=== PATIENT | male | born 1965 | race Caucasian/White ===

== ENCOUNTER 2022-04-01 08:18 | Emergency (ER) | payer MEDICAID, SELFPAY ==
[2022-04-01 08:21] VITALS: BP 114/70; PULSE 82; RESP 18; TEMP 37.2; O2SAT 98; BMI 24.0
--- NOTE | 2022-04-01 09:41 | ED_ITS ---
HPI - Eye Problem General Chief complaint: Eye Problems Stated complaint: eye problems Time Seen by Provider: 04/01/22 09:41 History of Present Illness HPI Narrative: Patient is disabled and blind living in a intermediate He was noted to have pinkeye in his right eye and was prescribed polymyxin eyedrops, but he has been resistant to taking them so the drops have not been given consistently and now the eyelid is red and there continues to be discharge from the eye Staff reports he seems to be very comfortable and not in any pain, is otherwise eating and drinking and behaving normally for himself Related Data Previous Rx's Medication Instructions Recorded cephalexin 250 mg capsule 250 mg PO QID 7 days #28 caps 04/01/22 moxifloxacin 0.5 % eye drops 1 drp ophthalmic (eye) TID 7 days 04/01/22 (Vigamox) #3 mL Allergies Allergy/AdvReac Type Severity Reaction Status Date / Time erythromycin base Allergy Unknown HIVES Unverified 03/17/20 19:46 [ERYTHROMYCIN BASE] gentamicin [GENTAMICIN] Allergy Unknown UNKNOWN Unverified 03/17/20 19:46 Macrolide Antibiotics Allergy Unknown UNKNOWN Unverified 03/17/20 19:46 [MACROLIDE ANTIBIOTICS] KETOLIDES Allergy Unknown UNKNOWN Uncoded 03/17/20 19:46 Review of Systems Review of Systems: Positive for eyelid redness and discharge from eye Negatives are no fever no chills no dizziness no fainting no evidence of pain no other skin rash no cough no runny nose Yes all other systems are reviewed and are negative PMFSH Past Medical History Source: nursing notes reviewed Social History Social History Advance Directives: Yes Advance Directives Information Provided: No Advance Directives on File: No Physical Exam Vital Signs: Vital Signs: Last Vital Signs Temp 98.9 F 04/01/22 08:21 Pulse 82 04/01/22 08:21 Resp 18 04/01/22 08:21 BP 114/70 04/01/22 08:21 Pulse Ox 98 04/01/22 08:21 O2 Del Method 04/01/22 08:21 BMI result Body Mass Index 24.0 General appearance is comfortable in no acute distress The right eye there was red conjunctiva with scant discharge, there also was redness of the upper lid which did not appear to be warm or tender, there was no other redness The neck was supple Respiratory no distress Skin or no other rash Course Course Course Narrative: As the patient has conjunctivitis has not improved with the polymyxin drops and they require multiple applications per day I switched to Vigamox As there is redness now around the eyelid we are treating with Keflex for possible cellulitis Discharge Plan Discharge Clinical Impression: Cellulitis of right eyelid, Conjunctivitis Patient Disposition: Home, Self-Care Additional Instructions: Because the lid is now red and seems to be worsening we are treating for possible cellulitis with Keflex As polymyxin does not seem to of work for the infection we are escalating to Vigamox 3 times a day Follow with her doctor Return any time any worse condition or any concerns Prescriptions: New moxifloxacin [Vigamox] 0.5 % drops 1 drp ophthalmic (eye) TID 7 Days Qty: 3 0RF cephalexin 250 mg capsule 250 mg PO QID 7 Days Qty: 28 0RF
== END 2022-04-01 10:35 | disposition home or self-care (01) ==
PROVIDERS: Emergency Provider Emergency Medicine Emergency Medical Services; PCP Physician Assistant
DX: H00.031 Abscess of right upper eyelid (principal); H10.31 Unspecified acute conjunctivitis, right eye
CPT/HCPCS: 99282

== ENCOUNTER 2022-06-05 08:06 | Outpatient (RCR) | payer MEDICAID, SELFPAY ==
--- NOTE | ~2022-06-05 | XR_ITS ---
EXAMINATION: XR HUMERUS, RIGHT CLINICAL INFORMATION: Nonhealing wound mid lateral upper arm. COMPARISON: Chest radiographs 09/17/2019 TECHNIQUE: Frontal view right humerus is obtained along with 3 views of the elbow. There are total of 4 views. FINDINGS: The arm shows no fracture or dislocation or destructive process. No visible ankle capsular effusion. There is spurring at the coronoid process and olecranon and lateral acromium. The acromioclavicular alignment appears normal. There is healed fracture of a right lateral rib and questionable acute fracture distal right with near the lower margin of humerus film. Clinically correlate. There is a triangular density possibly calcification or ossification within the superficial soft tissues mid lateral right arm, approximately 8 x 4 mm in size and residing within 5 mm of the skin surface. There is no gas tracking in the soft tissues. XR/XR humerus RT IMPRESSION: -8 x 4 mm triangular density possibly calcification or ossification within superficial soft tissues mid lateral right arm, approximately 8 x 4 mm in size and residing within 5 mm of the skin surface. No gas tracking in soft tissues. -No fracture or dislocation right humerus. No destructive process. No elbow capsular effusion. -Question fracture distal right rib. Clinically correlate.
== END 2022-06-19 12:03 | disposition home or self-care (01) ==
LOC: HO.WCC 08:06
PROVIDERS: PCP Physician Assistant; Visit Provider Physician Assistant
DX: L98.492 Non-pressure chronic ulcer of skin of other sites with fat layer exposed (principal); L02.413 Cutaneous abscess of right upper limb; G93.40 Encephalopathy, unspecified; G40.812 Lennox-Gastaut syndrome, not intractable, without status epilepticus; Z79.899 Other long term (current) drug therapy; Z99.3 Dependence on wheelchair
CPT/HCPCS: 17250; 73060; 99212

== ENCOUNTER → 2022-07-31 13:23 | Outpatient (BNVA) | payer MEDICAID, SELFPAY | PROVIDERS: PCP Physician Assistant; Visit Provider Surgery | DX: M79.5 Residual foreign body in soft tissue (principal) | CPT/HCPCS: 99202 ==

== ENCOUNTER 2022-12-31 13:03 | Emergency (ER) | payer OTHER, SELFPAY ==
[2022-12-31 13:10] VITALS: BP 113/47; PULSE 66; PULSE 70; RESP 14; O2SAT 100; O2SAT 98; BMI 34.8
[2022-12-31 13:13] VITALS: BP 150/73; PULSE 64; RESP 14; TEMP 36.6; O2SAT 98
--- NOTE | 2022-12-31 13:40 | PC.NURSE ---
staff member from [facility] is at bedside with patient. patient vital signs stable, respirations unlabored, equal chest rise and fall. maintaining own secretions. seizure pads in place
--- NOTE | 2022-12-31 13:54 | ED.SEIZURE ---
HPI - Seizure General Chief Complaint: Seizure Stated Complaint: multiple SZ [facility] Time Seen by Provider: 12/31/22 13:37 History of Present Illness HPI Narrative: Patient is a 57-year-old male with a history of being mentally challenged baseline. Baselines has seizures activities once today at least. Baseline patient is on Depakote 500 mg 3 times a day history of being on Keppra 1000 mg 3 times a day. Patient [facility] a [facility] has been compliant with medications. The staff noted patient had 9 possible seizures today. The seizure episodes are fairly similar. Usually patient tenses up. Lasted for approximately 1-5 minutes. With afterwards patient being lethargic. Patient baseline is nonverbal. Baseline patient unable to speak. Per penitentiary staff that is with patient his mental status is approximately the same as prior. Patient normally goes to a day program during the day. Lives in a penitentiary at night. Seizure History: Yes Place: penitentiary Related Data Previous Rx's Medication Instructions Recorded cephalexin 250 mg capsule 250 mg PO QID 7 days #28 caps 04/01/22 moxifloxacin 0.5 % eye drops 1 drp ophthalmic (eye) TID 7 days 04/01/22 (Vigamox) #3 mL Allergies Allergy/AdvReac Type Severity Reaction Status Date / Time erythromycin base Allergy Unknown HIVES Unverified 03/17/20 19:46 [ERYTHROMYCIN BASE] gentamicin [GENTAMICIN] Allergy Unknown UNKNOWN Unverified 03/17/20 19:46 Macrolide Antibiotics Allergy Unknown UNKNOWN Unverified 03/17/20 19:46 [MACROLIDE ANTIBIOTICS] KETOLIDES Allergy Unknown UNKNOWN Uncoded 03/17/20 19:46 Review of Systems Review of Systems: Unable to obtain review of systems secondary to patient condition [facility] Past Medical History Attestation statement: The following information was validated with the patient. Social History Social History Advance Directives: No Advance Directives Information Provided: No Physical Exam Vital Signs: Vital Signs: Last Vital Signs Temp 97.8 F 12/31/22 13:13 Pulse 64 12/31/22 13:13 Resp 14 12/31/22 13:13 BP 150/73 H 12/31/22 13:13 Pulse Ox 98 12/31/22 13:13 O2 Del Method Room Air 12/31/22 13:13 BMI result Body Mass Index 34.8 Appearance: Contracted, grimaces to pain Eyes: Pupils equal, round and reactive to light. ENT: Pharynx normal. Neck: Normal inspection. Neck supple. No lymph nodes noted. No crepitus CVS: Normal heart rate and rhythm. Pulses normal. Normal S1 and S2 Respiratory: No respiratory distress. Breath sounds normal. No Wheezing. No rales Abdomen: Soft and nontender. No rigidity. No distention. good BS x4 Skin: Skin warm and dry. Normal skin color. Normal skin turgor. Extremities: No lower extremity edema. Neurovascular intact to all extremities. No Lacerations. No Rash Neuro: Contracted grimaces to pain Medications Administered Discontinued Medications Generic Name Dose Route Start Last Admin Trade Name Freq PRN Reason Stop Dose Admin Sodium Chloride 500 mls @ 999 mls/hr 12/31/22 14:00 12/31/22 15:07 Ns IV 12/31/22 14:30 Infused .Q31M MEETA Infusion Medical Decision Making Medical Decision Making [facility] Narrative: Patient has baseline history of seizure. Normally on this 2 medication Depakote 500 mg 3 times a day also on Keppra 1000 mg 3 times a day. The dose seems to be approximately the same. Patient had multiple seizures today up to 9. Sent to the ED for further evaluation. We will go ahead get EKG, labs, CT scan of the head. Patient's Depakote level level is therapeutic attempted to contact Neurology multiple times over the course of approximately 4 hours. Already on Depakote 500 3 times a day. On Keppra a 1000 mg 3 times a day. Patient baseline has seizures. Is taking p.o. here in the emergency department. Did not have any further seizures. Patient was monitored for over 6 hours. Will elect to discharge patient back to the [facility]itentiary. With no medication adjustments for now. In stable condition. CT scan of the head was grossly negative. Electrolytes unremarkable. Urine showed no signs of infections. In stable condition Differential Diagnosis Differential Diagnoses: The differential diagnosis associated with the presentation includes Infection, recurrent seizure, intracranial bleed Lab Data [facility] Lab Attestation statement: I reviewed the patient's lab results. 12/31/22 15:03 12/31/22 15:03 Labs: Lab Results 12/31/22 12/31/22 12/31/22 Range/Units 15:03 15:03 15:03 WBC 4.7 L (4.8-10.8) X10*3/uL RBC 4.45 L (4.60-5.80) X10*6/uL Hgb 12.8 L (14.0-18.0) g/dl Hct 38.1 L (42.0-52.0) % MCV 85.6 (80.0-98.0) fL MCH 28.8 (27.0-33.0) pg MCHC 33.6 (31.0-36.0) g/dl RDW 13.2 (11.0-16.0) % Plt Count 242 (160-400) X10*3/uL MPV 9.1 L (9.4-12.4) fL Immature Gran % (Auto) 0.4 (0.0-0.4) % Neut % (Auto) 46.5 (45-73) % Lymph % (Auto) 38.4 (20-40) % [place] % (Auto) 11.7 H (2-11) % Eos % (Auto) 2.6 (0-4) % Baso % (Auto) 0.4 (0-2) % Lymph # (Auto) 1.8 (1.2-4.9) X10*3/uL [place] # (Auto) 0.6 (0.1-1.2) X10*3/uL Eos # (Auto) 0.1 (0.0-0.4) X10*3/uL Baso # (Auto) 0.0 (0.0-0.2) X10*3/uL Abs Immat Gran (auto) 0.02 (0.00-0.03) X10*3/uL Absolute Neuts (auto) 2.2 (2.0-8.3) x10*3/uL Absolute Nucleated RBC 0.000 (0.0-0.012) X10*3/uL Nucleated RBC % (auto) 0.0 (0.0-0.2) /100WBC Sodium 135 (135-145) mmol/L Potassium 3.8 (3.3-5.1) mmol/L Chloride 98 (96-108) mmol/L Carbon Dioxide 27 (22-29) mmol/L Anion Gap 14 (12-20) BUN 10 (9-16) mg/dL Creatinine 0.54 (0.5-1.4) mg/dL Estim Creat Clear Calc 148.8 Estimated GFR > 60 Random Glucose 76 (60-115) mg/dL Calcium 9.2 (8.4-10.2) mg/dL Total Bilirubin 0.2 (0.0-1.0) mg/dL Direct Bilirubin < 0.2 (0.0-0.5) mg/dL AST 19 (5-37) U/L ALT 14 (0-40) U/L Alkaline Phosphatase 42 (39-117) U/L Total Protein 6.7 (6.5-8.0) g/dL Albumin 3.7 (3.5-5.0) g/dL Urine Color Urine Appearance Urine pH (5.0-9.0) Ur Specific [place] (1.005-1.025) Urine Protein (Neg-Trace) mg/dL Urine Glucose (UA) (Negative) mg/dL Urine Ketones (Negative) mg/dL Urine Blood (Negative) Urine Nitrite (Negative) Ur Leukocyte Esterase (Negative) Urine RBC (0-2) /HPF Urine WBC (0-5) /HPF Ur Squamous Epith Cells (0-2) /HPF Urine Bacteria (None Seen) Hyaline Casts (0-2) /LPF Valproic Acid 84.5 (50.0-100.0) mcg/mL 12/31/22 Range/Units 17:04 WBC (4.8-10.8) X10*3/uL RBC (4.60-5.80) X10*6/uL Hgb (14.0-18.0) g/dl Hct (42.0-52.0) % MCV (80.0-98.0) fL MCH (27.0-33.0) pg MCHC (31.0-36.0) g/dl RDW (11.0-16.0) % Plt Count (160-400) X10*3/uL MPV (9.4-12.4) fL Immature Gran % (Auto) (0.0-0.4) % Neut % (Auto) (45-73) % Lymph % (Auto) (20-40) % [place] % (Auto) (2-11) % Eos % (Auto) (0-4) % Baso % (Auto) (0-2) % Lymph # (Auto) (1.2-4.9) X10*3/uL [place] # (Auto) (0.1-1.2) X10*3/uL Eos # (Auto) (0.0-0.4) X10*3/uL Baso # (Auto) (0.0-0.2) X10*3/uL Abs Immat Gran (auto) (0.00-0.03) X10*3/uL Absolute Neuts (auto) (2.0-8.3) x10*3/uL Absolute Nucleated RBC (0.0-0.012) X10*3/uL Nucleated RBC % (auto) (0.0-0.2) /100WBC Sodium (135-145) mmol/L Potassium (3.3-5.1) mmol/L Chloride (96-108) mmol/L Carbon Dioxide (22-29) mmol/L Anion Gap (12-20) BUN (9-16) mg/dL Creatinine (0.5-1.4) mg/dL Estim Creat Clear Calc Estimated GFR Random Glucose (60-115) mg/dL Calcium (8.4-10.2) mg/dL Total Bilirubin (0.0-1.0) mg/dL Direct Bilirubin (0.0-0.5) mg/dL AST (5-37) U/L ALT (0-40) U/L Alkaline Phosphatase (39-117) U/L Total Protein (6.5-8.0) g/dL Albumin (3.5-5.0) g/dL Urine Color Yellow Urine Appearance Clear Urine pH 7.0 (5.0-9.0) Ur Specific [place] 1.015 (1.005-1.025) Urine Protein Negative (Neg-Trace) mg/dL Urine Glucose (UA) Negative (Negative) mg/dL Urine Ketones Negative (Negative) mg/dL Urine Blood Negative (Negative) Urine Nitrite Negative (Negative) Ur Leukocyte Esterase Negative (Negative) Urine RBC 3-5 H (0-2) /HPF Urine WBC 0-5 (0-5) /HPF Ur Squamous Epith Cells 0-2 (0-2) /HPF Urine Bacteria None Seen (None Seen) Hyaline Casts 0-2 (0-2) /LPF Valproic Acid (50.0-100.0) mcg/mL Discharge Plan Discharge Clinical Impression: Epileptic seizure Patient Disposition: Home, Self-Care Prescriptions: No Action moxifloxacin [Vigamox] 0.5 % drops 1 drp ophthalmic (eye) TID 7 Days Qty: 3 0RF cephalexin 250 mg capsule 250 mg PO QID 7 Days Qty: 28 0RF Referrals: Molly Tinoco MD [Physician] - 01/03/23
--- NOTE | 2022-12-31 15:59 | PC.NURSE ---
patients brief was wet, changed patient brief, linens and josé antonio pad, repositioned patient in bed. [facility] staff at the bedside.
--- NOTE | 2022-12-31 19:06 | PC.NURSE ---
Assumed care of pt. Pt lying on stretcher, appears sleeping. Rousable to light touch. clerical production worker at bedside, Nilsa, indicated pt has mahsa sleeping with no distress for several hours. Pt with no critical medical or behavioral concerns at this time. Pending plan of care. WCTM.
[2023-01-01] VITALS: BP 109/46; PULSE 61; RESP 16; TEMP 36.2; O2SAT 96
--- NOTE | 2023-01-01 00:03 | MHC.EDTECH ---
THIS PCT ASSUMED CARE OF PATIENT AT [id number] ,VITALS SIGN TAKEN ,PT IS DISCHARGED AND IS WAITING FOR AMBULANCE TO GO HOME ,[facility] STAFF AT BEDSIDE .
== END 2023-01-01 00:25 | disposition home or self-care (01) ==
PROVIDERS: Emergency Provider Emergency Medicine Emergency Medical Services; PCP Physician Assistant
DX: G40.909 Epilepsy, unspecified, not intractable, without status epilepticus (principal); Z79.899 Other long term (current) drug therapy
CPT/HCPCS: 36415; 70450; 71045; 80048; 80076; 80164; 80177; 81001; 85025; 93005; 96360; 99284; 99285

== ENCOUNTER 2023-04-01 09:50 | Observation (INO) | payer OTHER, SELFPAY ==
--- NOTE | ~2023-04-01 | XR_ITS ---
EXAMINATION: XR CHEST CLINICAL INFORMATION: Seizure COMPARISON: Previous chest x-ray most recent December 2022 TECHNIQUE: Frontal view of the chest was obtained. FINDINGS: Exam is limited due to patient positioning with the patient's chin overlying the upper central chest. The cardiac and mediastinal contours are stable. The lungs are clear. No pleural effusion or pneumothorax. Degenerative changes of the spine. XR/XR chest 1V IMPRESSION: Limited exam. No evidence for acute disease in the chest.
--- NOTE | ~2023-04-01 | CT_ITS ---
EXAMINATION: CT HEAD WITHOUT CONTRAST CLINICAL INFORMATION: Multiple seizures. COMPARISON: Head CT dated 12/31/2022. TECHNIQUE: Contiguous axial imaging was performed from the skullbase to vertex without intravenous administration of contrast. Extremely limited examination due to patient motion. Patient reportedly combative during the study. This CT examination was performed using dose optimization techniques as appropriate, variously including the following: *Automated exposure control *Adjustment of mA and/or kV according to patient size (this includes techniques or standardized protocols for targeted exams where dose is matched to indication/reason for exam; i.e. extremities or head) *Use of iterative reconstruction technique DLP: 1725 mGy-cm. FINDINGS: Generalized brain parenchymal volume loss again evident with ex vacuo dilatation of the ventricles. There is no evidence of acute intracranial hemorrhage or territorial infarction. No abnormal mass effect or midline shift is seen. No obvious extra-axial fluid collections are identified. The osseous structures and soft tissues are normal. The mastoid air cells are well aerated. There are retention cysts and mild mucosal thickening in the maxillary sinuses. 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 CT/CT head/brain wo IV con IMPRESSION: Significantly limited study with patient motion artifacts. No acute intracranial hemorrhage or territorial infarction evident. Stable generalized brain parenchymal volume loss and ex vacuo dilatation of the ventricles.
[2023-04-01 10:01] VITALS: BP 114/73; BP 125/77; PULSE 105; PULSE 106; RESP 20; TEMP 37.2; O2SAT 91; O2SAT 95; BMI 26.3
--- NOTE | 2023-04-01 10:22 | ED_ITS ---
HPI - Seizure General Chief Complaint: Seizure Stated Complaint: SZ PER EMS Time Seen by Provider: 04/01/23 10:07 Source: EMS, RN notes reviewed, old records reviewed and other Mode of arrival: EMS History of Present Illness HPI Narrative: 57-year-old male with a past medical history of HLD, TIA, anxiety, Parkinson's, aspiration pneumonia, anxiety/depression, proptosis, legally blind, cluster seizures currently on Keppra 1000mg TID and Depakote 500mg TID with Ativan PRN, nonverbal and bed-bound at baseline, presenting [facility] via [facility] for cluster seizures this morning beginning around 07:00AM. jail reports multiple [id number] seizures, typical for patient, no fall/head trauma during any incident. Typically last a few minutes. Admits episodes were typical for patient. Patient was given 1mg Ativan x3, last dose SCREW MACHINE HAND. Patient with history of COVID-19 a few weeks ago, otherwise in normal state of health. Denies known fever, cough, decreased p.o. intake. jail reports compliance with medications MD complaint: seizure Seizure History: Yes Place: Home Related Data Home Medications Medication Instructions Recorded Confirmed acetaminophen 325 mg tablet 650 mg PO Q6H PRN Fever Or Pain 04/01/23 04/01/23 aspirin 81 mg tablet,delayed 81 mg PO DAILY 04/01/23 04/01/23 release bacitracin 500 unit/gram eye 1 appl ophthalmic (eye) BID 04/01/23 04/01/23 ointment cholecalciferol (vitamin D3) 1,250 1,250 mcg PO QWEEK 04/01/23 04/01/23 mcg (50,000 unit) capsule clonazepam 0.5 mg tablet 0.25 mg PO BID@0900,1200 04/01/23 04/01/23 clonazepam 0.5 mg tablet 0.5 mg PO BEDTIME 04/01/23 04/01/23 divalproex 125 mg capsule,delayed 500 mg PO TID 04/01/23 04/01/23 release sprinkle (Depakote Sprinkles) docusate sodium 100 mg capsule 100 mg PO BID 04/01/23 04/01/23 felbamate 400 mg tablet 800 mg PO TID 04/01/23 04/01/23 levetiracetam 500 mg tablet 1,000 mg PO TID 04/01/23 04/01/23 levothyroxine 88 mcg tablet 88 mcg PO DAILY 04/01/23 04/01/23 lorazepam 1 mg tablet 1 mg PO Q30M PRN Seizures 04/01/23 04/01/23 multivitamin with folic acid 400 1 tab PO DAILY 04/01/23 04/01/23 mcg tablet (Thera) sertraline 50 mg tablet 50 mg PO DAILY 04/01/23 04/01/23 simvastatin 40 mg tablet 40 mg PO BEDTIME 04/01/23 04/01/23 zinc oxide 13 % topical cream 1 appl topical TID 04/01/23 04/01/23 (Desitin Daily Defense) Allergies Allergy/AdvReac Type Severity Reaction Status Date / Time erythromycin base Allergy Unknown HIVES Verified 04/01/23 11:20 [ERYTHROMYCIN BASE] gentamicin [GENTAMICIN] Allergy Unknown UNKNOWN Verified 04/01/23 11:20 Macrolide Antibiotics Allergy Unknown UNKNOWN Verified 04/01/23 11:20 [MACROLIDE ANTIBIOTICS] KETOLIDES Allergy Unknown UNKNOWN Uncoded 03/17/20 19:46 Review of Systems 2 Review of Systems: ROS limited due to patient's baseline nonverbal status and acute postictal phase Yes all other systems are reviewed and are negative Constitutional: Constitutional: Reports as per [facility] Past Medical History Attestation statement: The following information was validated with the patient. Source: old records reviewed Medical History (Updated 04/01/23 @ 13:28 by CADEN Jacobs) Depression Generalized anxiety disorder Ganglion cyst Aspiration pneumonia Parkinson disease Dysphagia Anxiety Constipation TIA (transient ischemic attack) Hyperlipidemia Glaucoma Hyperopia of left eye Proptosis Aphakia, both eyes Osteopenia Hypothyroidism Manjinder-Gastaut syndrome, intractable, with status epilepticus Social History Social History Unable to assess alcohol history related to: Unknown Smoked in Last 30 Days: No Use of substances other than those prescribed or required for medical reasons: Unknown Advance Directives: No Advance Directives Information Provided: Yes Physical Exam 2 Vital Signs: Vital Signs: Last Vital Signs Temp 98.9 F 04/01/23 10:01 Pulse 84 04/01/23 12:25 Resp 18 04/01/23 12:25 BP 116/51 L 04/01/23 12:25 Pulse Ox 97 04/01/23 12:25 O2 Del Method Room Air 04/01/23 12:25 BMI result Body Mass Index 26.3 Const: Other: Contracted at baseline General: cooperative and no acute distress Limitations: other limitations (Nonverbal) HEENT: Head: Yes normal to inspection and Yes atraumatic Ears: hearing grossly normal bilaterally General nose exam: Normal external nose present Face and sinus: Yes normal facial exam Eyes: General: appearance normal, both eyes and all related structures EOM: EOMs intact bilaterally Neck: Neck: Yes normal visual inspection and Yes no meningeal signs Resp: Effort & Inspection: normal respiratory effort and no respiratory distress Auscultation: clear to auscultation bilaterally Cardio: Rate: regular rate Heart sounds: S1 normal heart sound present and S2 normal heart sound present GI: Inspection: Yes normal to inspection Palpation (GI): Soft to palpation, nontender, no guarding and not rigid Skin: Rashes: no rashes Wounds: no wounds Neuro: General: tone normal and no meningeal signs Extrem: Other: No evidence of trauma General: Yes normal to inspection Course Course Course Narrative: -1141--no leukocytosis. H&H at patient's baseline. Labs otherwise reassuring. COVID-19 negative XR chest 1V IMPRESSION: Limited exam. No evidence for acute disease in the chest. -UA negative CT head/brain wo IV con IMPRESSION: Significantly limited study with patient motion artifacts. No acute intracranial hemorrhage or territorial infarction evident. Stable generalized brain parenchymal volume loss and ex vacuo dilatation of the ventricles. > 1251--[facility] staff called this senior medical writer to room as noted patient to have 6 sec seizure in the ED. Currently in postictal/snoring state. Follows with Dr. Tito Shafer at [facility], will consult -1324--spoke with Dr. Shafer, patient's neurologist, patient is also on Felbamate for his seizures > recommended Ativan 1 mg IV now and q.6 hours x3 total doses. Additionally recommended adding Lamictal to patient's regimen, 12.5 mg daily. Would like patient admitted, if seizure free throughout the morning can be discharged back to [facility] and he will follow up. -Plan is for admission. Case discussed with hospitalist Medications Administered Discontinued Medications Generic Name Dose Route Start Last Admin Trade Name Freq PRN Reason Stop Dose Admin Sodium Chloride 1,000 mls @ 999 mls/hr 04/01/23 10:30 04/01/23 12:31 Ns IV 04/01/23 11:30 Infused .Q1H1M MEETA Infusion Lamotrigine 12.5 mg 04/01/23 13:19 04/01/23 13:50 Lamotrigine 25 Mg Tablet PO 04/01/23 13:20 12.5 mg ONCE ONE Administration Lorazepam 1 mg 04/01/23 13:15 04/01/23 13:41 Lorazepam 2 Mg/Ml Vial IVPUSH 04/01/23 13:16 1 mg STAT STA Administration Medical Decision Making Medical Decision Making MDM Narrative: 57-year-old male with a past medical history of HLD, TIA, anxiety, Parkinson's, aspiration pneumonia, anxiety/depression, proptosis, legally blind, cluster seizures currently on Keppra 1000mg TID and Depakote 500mg TID with Ativan PRN, nonverbal and bed-bound at baseline, presenting to the ED via EMS from [facility] for cluster seizures this morning beginning around 07:00AM. On exam vital signs stable, NAD, nontoxic, no evidence of trauma, patient is sleeping/snoring during the eval, postictal/sedated from medications, grimaces to pain. Patient with extensive history of similar presentations. Rule out metabolic/infectious etiologies and intracranial pathology. Low suspicion for medication noncompliance as medications are administered by [facility]. jail denies any recent medication changes. Plan: EKG, labs, UA, CXR, head CT, observe and re-evaluate Please refer to course for remaining clinical decision making, interpretation of labs/imaging results, and discussions with consultants and/or family members. Differential Diagnosis Differential Diagnoses: The differential diagnosis associated with the presentation includes As above Admission/Observation Consideration of admission/observation: Escalation of care including admission/observation considered Consult Healthcare Provider Management of the patient was discussed with: Joinery Factory Worker (Neurology, Dr. Shafer) Lab Data [facility] Lab Attestation statement: I reviewed the patient's lab results. 04/01/23 11:11 04/01/23 11:11 Labs: Lab Results 04/01/23 04/01/23 04/01/23 Range/Units 11:11 11:57 13:02 WBC 5.8 (4.8-10.8) X10*3/uL RBC 4.43 L (4.60-5.80) X10*6/uL Hgb 12.7 L (14.0-18.0) g/dl Hct 37.2 L (42.0-52.0) % MCV 84.0 (80.0-98.0) fL MCH 28.7 (27.0-33.0) pg MCHC 34.1 (31.0-36.0) g/dl RDW 13.5 (11.0-16.0) % Plt Count 217 (160-400) X10*3/uL MPV 9.2 L (9.4-12.4) fL Immature Gran % (Auto) 0.2 (0.0-0.4) % Neut % (Auto) 66.6 (45-73) % Lymph % (Auto) 18.8 L (20-40) % [place] % (Auto) 13.9 H (2-11) % Eos % (Auto) 0.3 (0-4) % Baso % (Auto) 0.2 (0-2) % Lymph # (Auto) 1.1 L (1.2-4.9) X10*3/uL [place] # (Auto) 0.8 (0.1-1.2) X10*3/uL Eos # (Auto) 0.0 (0.0-0.4) X10*3/uL Baso # (Auto) 0.0 (0.0-0.2) X10*3/uL Abs Immat Gran (auto) 0.01 (0.00-0.03) X10*3/uL Absolute Neuts (auto) 3.8 (2.0-8.3) x10*3/uL Absolute Nucleated RBC 0.000 (0.0-0.012) X10*3/uL Nucleated RBC % (auto) 0.0 (0.0-0.2) /100WBC PT 12.8 (11.1-13.3) SEC INR 1.1 (0.9-1.1) Sodium 133 L (135-145) mmol/L Potassium 3.8 (3.3-5.1) mmol/L Chloride 98 (96-108) mmol/L Carbon Dioxide 28 (22-29) mmol/L Anion Gap 11 L (12-20) BUN 10 (9-16) mg/dL Creatinine 0.57 (0.5-1.4) mg/dL Estim Creat Clear Calc 156.9 Estimated GFR > 60 Random Glucose 108 (60-115) mg/dL Calcium 9.2 (8.4-10.2) mg/dL Magnesium 1.8 (1.6-2.6) mg/dL Total Bilirubin 0.1 (0.0-1.0) mg/dL Direct Bilirubin < 0.2 (0.0-0.5) mg/dL AST 16 (5-37) U/L ALT 11 (0-40) U/L Alkaline Phosphatase 45 (39-117) U/L Total Protein 6.6 (6.5-8.0) g/dL Albumin 3.8 (3.5-5.0) g/dL Urine Color Yellow Urine Appearance Clear Urine pH 8.0 (5.0-9.0) Ur Specific [place] 1.020 (1.005-1.025) Urine Protein Negative (Neg-Trace) mg/dL Urine Glucose (UA) Negative (Negative) mg/dL Urine Ketones Negative (Negative) mg/dL Urine Blood Negative (Negative) Urine Nitrite Negative (Negative) Ur Leukocyte Esterase Negative (Negative) Valproic Acid 82.7 (50.0-100.0) mcg/mL COVID-19 (NICANOR) Negative (Negative) COVID-19 Clin Com See Note Independent Interpretation I performed an independent interpretation of an: EKG Radiology Impression Discussion of test interpretation with radiology: I have reviewed the radiologist's reading. Independent Historian Clinical information obtained from an independent historian. History obtained from or confirmed by: EMS and Other (jail staff) External Record Review External record reviewed: Inpatient record, Office record, Outpatient record, Prior outpatient labs, Prior outpatient radiology, Primary care record and Outside ED record Tests considered The following testing was considered but not selected: As above Chronic Conditions Patient?s care impacted by: Other (seizures ) Critical Care Time Critical Care Time Critical Care Time: Yes Total Critical Care Time: 45 Attestation: I have personally provided critical care time exclusive of time spent on separately billable procedures. Time includes review of lab data, radiology results, discussion with consultants, and monitoring for potential decompensation. Intervention performed as documented. Discharge Plan Discharge Clinical Impression: Epileptic seizure Patient Disposition: Admitted As Inpatient
--- NOTE | 2023-04-01 10:24 | ECG_ITS ---
Test Reason : SEIZURE Blood Pressure : / mmHG Vent. Rate : 095 BPM Atrial Rate : 095 BPM P-R Int : 176 ms QRS Dur : 086 ms QT Int : 320 ms P-R-T Axes : 050 027 035 degrees QTc Int : 402 ms Normal sinus rhythm Nonspecific T wave abnormality Abnormal ECG When compared with ECG of 31-DEC-2022 15:16, Nonspecific T wave abnormality now evident in Anterior leads Referred By: Winifred Conn Electronically Signed By:KOBE SAAVEDRA
--- NOTE | 2023-04-01 10:27 | PC.NURSE ---
Temp trending up, blankets removed, temp 99.3
[2023-04-01] MEDS: 0.9 % Sodium Chloride 1,000 ML 999 ML IV (11:06)
[2023-04-01 11:16] LABS: MANUAL DIFF FLAG NO
--- NOTE | 2023-04-01 11:21 | PC.NURSE ---
assumed care of pt at 1100, pt returned from CT, resting quietly, seizure precautions in place, 1L NS running, tech at bedside obtaining labs. flying squad worker at bedside.
[2023-04-01 11:22] LABS: Basophils Percent Auto 0.2 % (0-2); Eosinophils Percent Auto 0.3 % (0-4); Hematocrit 37.2 % (42.0-52.0); Hemoglobin 12.7 g/dl (14.0-18.0); INTERNATIONAL NORM RATIO 1.1 (0.9-1.1); Imm Gran Abs Auto 0.01 X10*3/uL (0.00-0.03); Imm Gran Pct Auto 0.2 % (0.0-0.4); Lymphocytes Absolute Auto 1.1 X10*3/uL (1.2-4.9); Lymphocytes Percent Auto 18.8 % (20-40); Mean Corpuscular HGB Conc 34.1 g/dl (31.0-36.0); Mean Corpuscular Hemoglobin 28.7 pg (27.0-33.0); Mean Platelet Volume 9.2 fL (9.4-12.4); Monocytes Absolute Auto 0.8 X10*3/uL (0.1-1.2); Monocytes Percent Auto 13.9 % (2-11); Neutrophils Absolute Auto 3.8 x10*3/uL (2.0-8.3); Neutrophils Percent Auto 66.6 % (45-73); Platelet Count 217 X10*3/uL (160-400); Prothrombin Time 12.8 SEC (11.1-13.3); Red Blood Count 4.43 X10*6/uL (4.60-5.80); Red Cell Distribution Width 13.5 % (11.0-16.0); White Blood Count 5.8 X10*3/uL (4.8-10.8)
[2023-04-01 11:29] LABS: COVID-19 Test Negative (Negative); IDNOW Serial# BCCEAD1C
[2023-04-01 11:37] LABS: Alanine Aminotransferase 11 U/L (0-40); Albumin Level 3.8 g/dL (3.5-5.0); Alkaline Phosphatase 45 U/L (39-117); Anion Gap 11 (12-20); Aspartate Amino Transferase 16 U/L (5-37); Bilirubin Direct < 0.2 mg/dL (0.0-0.5); Bilirubin Total 0.1 mg/dL (0.0-1.0); Blood Urea Nitrogen 10 mg/dL (9-16); Calcium 9.2 mg/dL (8.4-10.2); Carbon Dioxide 28 mmol/L (22-29); Chloride 98 mmol/L (96-108); Creatinine Clr Calc Pharmacy 156.9; Estimated Glomerular Filt Rate > 60; Glucose Random 108 mg/dL (60-115); Magnesium 1.8 mg/dL (1.6-2.6); Potassium 3.8 mmol/L (3.3-5.1); Sodium 133 mmol/L (135-145); Total Protein 6.6 g/dL (6.5-8.0)
--- NOTE | 2023-04-01 11:56 | PC.NURSE ---
pt straight cath'd, urine sample obtained, cleaned and repositioned, warm blanket given. care worker at bedside, seizure precautions in place.
[2023-04-01 12:06] LABS: Appearance Urine Clear; Color Urine Yellow; Glucose Urine UA Negative (Negative); Leukocyte Esterase Urine Negative (Negative); Nitrite Urine Negative (Negative); Urine Blood Negative (Negative); Urine Ketones Negative (Negative); Urine Protein Negative (Neg-Trace)
[2023-04-01 12:25] VITALS: BP 116/51; PULSE 84; RESP 18; O2SAT 97
[2023-04-01] MEDS: LORazepam 2 MG/ML VIAL 1 MG IVPUSH ×2 (13:41→18:33)
[2023-04-01 13:46] LABS: Valproate 82.7 mcg/mL (50.0-100.0)
[2023-04-01] MEDS: lamoTRIgine 25 MG TABLET 12.5 MG PO (13:50)
--- NOTE | 2023-04-01 13:55 | PC.NURSE ---
pt medicated per AUG. pt having occ small twitching motion that staff describes as typical for his seizure activity. per retirement staff: pt takes medications whole in something sweet - took medication well w chocolate ice cream. self feeds at base line with spoon and pureed diet and 3 oz of thin liquids at a time. doesn't like orange juice. requests bob villanueva by name of Merlene for self soothing. can answer simple yes/no questions.
--- NOTE | 2023-04-01 14:08 | P.HPHOSP_ITS ---
History of Present Illness Date of Service: 04/01/23 Attending physician on admission: Nolan Flores Chief Complaint: Cluster seizures Pt is a 57-year-old male with a PMH significant for?Parkinson's, TIA, HLD,hx of aspiration pneumonia, anxiety/depression and cluster seizures currently on Keppra 100 mg t.i.d. and Depakote 500 mg t.i.d. with Ativan p.r.n. who presents to the ED from shelter for cluster seizures this morning starting around 07:00. Patient is legally blind, bedbound at baseline, and verbally limited, though can make some of his needs known and can speak with simple words and short phrases. HPI obtained from chart and provider review, and shelter staff at [facility]. Per shelter staff patient has regular, though intermittent, seizures. Reports some weeks he may have many, though other weeks he may have none. Per protocol, patient receives 1 mg Ativan p.o. q 30 minutes for breakthrough seizures, and will be sent to the ED for evaluation after 3 doses of Ativan. Patient began having seizures this morning at 07:00 and received his total 3 doses of Ativan before calling EMS. Staff estimate patient had around 60 seizures this morning, each lasting between 5 and 15 seconds. Patient additionally had up to 4 seizures since being in the ED. staff report patient has seizures this morning were typical of the type he normally has, they just could not stop them with Ativan. Staff note patient recently got over COVID 2-3 weeks ago. Also report he has been not eating as much as normally. Patient is on a pureed diet with thin liquids. ED consulted the patient's neurologist Dr. Tito Shafer at [facility], who recommended giving Ativan 1 mg IV now and then q.6 hours for a total of 3 doses. Also recommended adding Lamictal 12.5 mg daily to patient's medications. Suggested admitting the patient, and if seizure-free throughout tomorrow morning patient can be discharged back to shelter and he will follow-up with him outpatient. In the ED patient was afebrile but tachycardic up to 106, BP a little soft at 116/51. Labs were largely unremarkable, stable H&H of 12.7/37.2, sodium 133. Hepatic and renal function WNL. Magnesium WNL. Valproic acid therapeutic at 82.7. Keppra level pending. UA negative for UTI. CXR a limited exam but showed no evidence for acute disease in the chest. CT?of head significantly limited with patient motion artifact, but did not find any acute intracranial hemorrhage or territorial infarction. Did show stable generalized brain parenchymal vomiting loss and ex vacuo dilation of the ventricles. EKG demonstrated normal sinus rhythm with nonspecific T-wave abnormality with T-wave inversions in V1 and V2, but no evidence of ST elevations or depressions. Pt was treated with IVF, Ativan 1 mg IV, lamotrigine 12.5 mg p.o. Pt will be admitted to the hospital under observation on telemetry for treatment and further evaluation of breakthrough cluster seizures. Review of Systems 2 Review of Systems: Unable to obtain d/t pt's mentation [facility] Medical History (Updated 04/01/23 @ 15:13 by CADEN Walter) Depression Generalized anxiety disorder Ganglion cyst Aspiration pneumonia Parkinson disease Dysphagia Anxiety Constipation TIA (transient ischemic attack) Hyperlipidemia Glaucoma Hyperopia of left eye Proptosis Aphakia, both eyes Osteopenia Hypothyroidism Manjinder-Gastaut syndrome, intractable, with status epilepticus Social History Unable to assess alcohol history related to: Unknown Smoked in Last 30 Days: No Use of substances other than those prescribed or required for medical reasons: Unknown Advance Directives: No Advance Directives Information Provided: Yes Meds Allergies Allergy/AdvReac Type Severity Reaction Status Date / Time erythromycin base Allergy Unknown HIVES Verified 04/01/23 11:20 [ERYTHROMYCIN BASE] gentamicin [GENTAMICIN] Allergy Unknown UNKNOWN Verified 04/01/23 11:20 Macrolide Antibiotics Allergy Unknown UNKNOWN Verified 04/01/23 11:20 [MACROLIDE ANTIBIOTICS] KETOLIDES Allergy Unknown UNKNOWN Uncoded 03/17/20 19:46 Active Medications: Current Medications Lorazepam (Lorazepam 2 Mg/Ml Vial) 1 mg IVPUSH Q6H [facility] Home Medications Medication Instructions Recorded Confirmed Last Taken Type acetaminophen 325 mg tablet 650 mg PO Q6H PRN Fever Or Pain 04/01/23 04/01/23 Unknown History aspirin 81 mg tablet,delayed 81 mg PO DAILY 04/01/23 04/01/23 Unknown History release bacitracin 500 unit/gram eye 1 appl ophthalmic (eye) BID 04/01/23 04/01/23 Unknown History ointment cholecalciferol (vitamin D3) 1,250 1,250 mcg PO QWEEK 04/01/23 04/01/23 Unknown History mcg (50,000 unit) capsule clonazepam 0.5 mg tablet 0.25 mg PO BID@0900,1200 04/01/23 04/01/23 Unknown History clonazepam 0.5 mg tablet 0.5 mg PO BEDTIME 04/01/23 04/01/23 Unknown History divalproex 125 mg capsule,delayed 500 mg PO TID 04/01/23 04/01/23 Unknown History release sprinkle (Depakote Sprinkles) docusate sodium 100 mg capsule 100 mg PO BID 04/01/23 04/01/23 Unknown History felbamate 400 mg tablet 800 mg PO TID 04/01/23 04/01/23 Unknown History levetiracetam 500 mg tablet 1,000 mg PO TID 04/01/23 04/01/23 Unknown History levothyroxine 88 mcg tablet 88 mcg PO DAILY 04/01/23 04/01/23 Unknown History lorazepam 1 mg tablet 1 mg PO Q30M PRN Seizures 04/01/23 04/01/23 Unknown History multivitamin with folic acid 400 1 tab PO DAILY 04/01/23 04/01/23 Unknown History mcg tablet (Thera) sertraline 50 mg tablet 50 mg PO DAILY 04/01/23 04/01/23 Unknown History simvastatin 40 mg tablet 40 mg PO BEDTIME 04/01/23 04/01/23 Unknown History zinc oxide 13 % topical cream 1 appl topical TID 04/01/23 04/01/23 Unknown History (Desitin Daily Defense) Physical Exam 2 Vital Signs and Narrative: Vital Signs: Last Vital Signs Temp 98.9 F 04/01/23 10:01 Pulse 84 04/01/23 12:25 Resp 18 04/01/23 12:25 BP 116/51 L 04/01/23 12:25 Pulse Ox 97 04/01/23 12:25 O2 Del Method Room Air 04/01/23 12:25 BMI result Body Mass Index 26.3 General: Pt obtunded, sleeping peacefully, no acute distress Head: Normocephalic, atraumatic Resp: CTA bilaterally CVS: S1, S2, RRR GI: +BS, NT, no distention Skin: Warm, dry Neuro: Unable to assess cranial nerves II-XII. Motor grossly intact bilaterally Extremities: No edema Results Labs 04/01/23 11:11 04/01/23 11:11 Labs: Laboratory Results - last 24 hr 04/01/23 04/01/23 04/01/23 11:11 11:57 13:02 MCV 84.0 MCH 28.7 MCHC 34.1 RDW 13.5 Plt Count 217 MPV 9.2 L Immature Gran % (Auto) 0.2 Neut % (Auto) 66.6 Lymph % (Auto) 18.8 L [place] % (Auto) 13.9 H Eos % (Auto) 0.3 Baso % (Auto) 0.2 Lymph # (Auto) 1.1 L [place] # (Auto) 0.8 Eos # (Auto) 0.0 Baso # (Auto) 0.0 Abs Immat Gran (auto) 0.01 Absolute Neuts (auto) 3.8 Absolute Nucleated RBC 0.000 Nucleated RBC % (auto) 0.0 PT 12.8 INR 1.1 Anion Gap 11 L Estim Creat Clear Calc 156.9 Estimated GFR > 60 Random Glucose 108 Calcium 9.2 Magnesium 1.8 Total Bilirubin 0.1 Direct Bilirubin < 0.2 AST 16 ALT 11 Alkaline Phosphatase 45 Total Protein 6.6 Albumin 3.8 Urine Color Yellow Urine Appearance Clear Urine pH 8.0 Ur Specific [place] 1.020 Urine Protein Negative Urine Glucose (UA) Negative Urine Ketones Negative Urine Blood Negative Urine Nitrite Negative Ur Leukocyte Esterase Negative Valproic Acid 82.7 COVID-19 (NICANOR) Negative COVID-19 Clin Com See Note Imaging Radiologist's Impressions: Impressions Chest X-Ray 04/01/23 10:45 IMPRESSION: Limited exam. No evidence for acute disease in the chest. Head CT 04/01/23 11:13 IMPRESSION: Significantly limited study with patient motion artifacts. No acute intracranial hemorrhage or territorial infarction evident. Stable generalized brain parenchymal volume loss and ex vacuo dilatation of the ventricles. Assessment and Plan (1) Breakthrough seizure: Status: Acute Plan Pt is a 57-year-old male with a PMH significant for?Parkinson's, TIA, HLD,hx of aspiration pneumonia, anxiety/depression and cluster seizures currently on Keppra 100 mg t.i.d. and Depakote 500 mg t.i.d. with Ativan p.r.n. who presents to the ED from shelter for cluster seizures this morning starting around 07:00. Pt will be admitted to the hospital under observation on telemetry for treatment and further evaluation of breakthrough cluster seizures. Breakthrough cluster seizures Pt with reported 60 seizures this morning, each 5-15 seconds long Brought to ED per protocol after 3 doses of Ativan did not break seizure activity ED contacted pt's neurologist Dr. Shafer, who suggested Ativan 1 mg IV q.6 x3 doses and adding Lamictal 12.5 mg daily Valproic acid therapeutic at 82.7 Keppra level pending Seizure, aspiration precautions Continue Keppra, felbamate, Depakote If patient seizure free through the morning can be discharged back home, Dr. Shafer to f/u Monitor on telemetry Diet Patient is on pureed diet with thin liquids according to shelter staff Hyponatremia Sodium mildly low at 133 Pt received IVF in ED Follow BMP Hypothyroidism Continue levothyroxine HLD Continue statin Mood disorder Continue home meds Full Code Attending:?Dr. Flores DVT Prophylaxis: Lovenox Patient be admitted to the hospital under observation on telemetry for treatment and further evaluation of breakthrough cluster seizures. Time Spent With Patient Time: Total time managing care of this patient today ____ minutes. Quality Stroke Does the patient have a stroke diagnosis?: No VTE Prior VTE?: No VTE Risk Level:: Medical - moderate - high VTE Device Contraindication: Treatment Not Indicated VTE Drug Contraindication: N/A - Med Ordered
--- NOTE | 2023-04-01 14:25 | PHA.MEDREC ---
Pharmacy Consult ? Medication Reconciliation Pharmacy has completed the medication reconciliation, using medication list faxed over by Clementine Antunez (legal guardian).
[2023-04-01 16:14] VITALS: BP 127/59; PULSE 80; RESP 18; O2SAT 98
[2023-04-01] MEDS: levETIRAcetam 1,000 MG TABLET 1000 MG PO ×2 (16:45→21:16)
[2023-04-01] MEDS: Divalproex Sodium Sprinkles 125 MG CAP.DR.SPR 500 MG PO ×2 (16:45→21:16)
[2023-04-01] MEDS: FELBAMATE 400 MG 800 EACH PO ×2 (16:46→21:16)
[2023-04-01] MEDS: Enoxaparin Sodium 40 MG/0.4 ML SYRINGE SUBCUT (16:46)
[2023-04-01] MEDS: 0.9 % Sodium Chloride Flush 3 ML SYRINGE IVFLUSH ×2 (16:46→21:17)
--- NOTE | 2023-04-01 18:17 | PC.NURSE ---
Assumed care of patient at 1500, patient has been resting in bed with no apparent distress. This RN and Toney,PCT changed patient due to incontinence. Pt was able to take all medications crushed in ice cream with no difficulties
--- NOTE | 2023-04-01 19:27 | PC.NURSE ---
report attempted at 1920, RN not available at this time
[2023-04-01 20:47] VITALS: BP 116/69; PULSE 68; RESP 18; TEMP 37; O2SAT 98
[2023-04-01 20:50] VITALS: BMI 26.0
[2023-04-01] MEDS: Docusate Sodium 100 MG CAPSULE PO (21:16)
[2023-04-01] MEDS: Atorvastatin Calcium 20 MG TABLET PO (21:16)
[2023-04-01] MEDS: clonazePAM 0.5 MG TABLET PO (21:16)
[2023-04-02] VITALS: BP 127/61; PULSE 68; RESP 18; TEMP 36.4; O2SAT 96
[2023-04-02 03:58] VITALS: BP 103/61; PULSE 76; RESP 18; TEMP 36.9; O2SAT 96
[2023-04-02] MEDS: Levothyroxine Sodium 88 MCG TABLET PO (04:56)
[2023-04-02] MEDS: LORazepam 2 MG/ML VIAL 1 MG IVPUSH ×2 (05:48)
[2023-04-02 07:15] VITALS: BP 136/69; PULSE 58; RESP 16; TEMP 36.2; O2SAT 97
--- NOTE | 2023-04-02 09:23 | MHC.CM.PN ---
Annette discussed with guardian, Clementine Antunez, and form sent via c. mail. Pt lives in a senior care and has 24 hour a day staffing. His senior care staff is present with him in the hosp. Plan is for him to return to his senior care. CM will follow and assist with dc plan.
[2023-04-02] MEDS: 0.9 % Sodium Chloride Flush 3 ML SYRINGE IVFLUSH (09:24)
[2023-04-02] MEDS: Aspirin Enteric Coated 81 MG TABLET.DR PO (09:24)
[2023-04-02] MEDS: levETIRAcetam 1,000 MG TABLET 1000 MG PO (09:25)
[2023-04-02] MEDS: Divalproex Sodium Sprinkles 125 MG CAP.DR.SPR 500 MG PO (09:25)
[2023-04-02] MEDS: lamoTRIgine 25 MG TABLET 12.5 MG PO (09:25)
[2023-04-02] MEDS: Docusate Sodium 100 MG CAPSULE PO (09:26)
[2023-04-02] MEDS: Multivitamin TABLET 1 TAB PO (09:26)
[2023-04-02] MEDS: FELBAMATE 400 MG 800 EACH PO (09:26)
[2023-04-02] MEDS: clonazePAM 0.5 MG TABLET 0.25 MG PO ×2 (09:26→12:53)
[2023-04-02] MEDS: Sertraline HCL 50 MG TABLET PO (09:26)
--- NOTE | 2023-04-02 10:41 | P.DS_ITS ---
DS: Providers Provider Date of Service: 04/02/23 Date of admission: 04/01/23 15:44 Primary care physician: CADEN Grey DS: Diagnosis Discharge Diagnosis (1) Breakthrough seizure: Status: Acute DS: Summary Hospital Course Hospital Course: Date of Service: 04/01/23 Attending physician on admission: Nolan Flores Chief Complaint: Cluster seizures Pt is a 57-year-old male with a PMH significant for?Parkinson's, TIA, HLD,hx of aspiration pneumonia, anxiety/depression and cluster seizures currently on Keppra 100 mg t.i.d. and Depakote 500 mg t.i.d. with Ativan p.r.n. who presents to the ED from snf for cluster seizures this morning starting around 07:00. Patient is legally blind, bedbound at baseline, and verbally limited, though can make some of his needs known and can speak with simple words and short phrases. HPI obtained from chart and provider review, and snf staff at beside. Per snf staff patient has regular, though intermittent, seizures. Reports some weeks he may have many, though other weeks he may have none. Per protocol, patient receives 1 mg Ativan p.o. q 30 minutes for breakthrough seizures, and will be sent to the ED for evaluation after 3 doses of Ativan. Patient began having seizures this morning at 07:00 and received his total 3 doses of Ativan before calling EMS. Staff estimate patient had around 60 seizures this morning, each lasting between 5 and 15 seconds. Patient additionally had up to 4 seizures since being in the ED. staff report patient has seizures this morning were typical of the type he normally has, they just could not stop them with Ativan. Staff note patient recently got over COVID 2-3 weeks ago. Also report he has been not eating as much as normally. Patient is on a pureed diet with thin liquids. ED consulted the patient's neurologist Dr. Tito Shafer at [facility], who recommended giving Ativan 1 mg IV now and then q.6 hours for a total of 3 doses. Also recommended adding Lamictal 12.5 mg daily to patient's medications. Suggested admitting the patient, and if seizure-free throughout tomorrow morning patient can be discharged back to snf and he will follow-up with him outpatient. In the ED patient was afebrile but tachycardic up to 106, BP a little soft at 116/51. Labs were largely unremarkable, stable H&H of 12.7/37.2, sodium 133. Hepatic and renal function WNL. Magnesium WNL. Valproic acid therapeutic at 82.7. Keppra level pending. UA negative for UTI. CXR a limited exam but showed no evidence for acute disease in the chest. CT?of head significantly limited with patient motion artifact, but did not find any acute intracranial hemorrhage or territorial infarction. Did show stable generalized brain parenchymal vomiting loss and ex vacuo dilation of the ventricles. EKG demonstrated normal sinus rhythm with nonspecific T-wave abnormality with T-wave inversions in V1 and V2, but no evidence of ST elevations or depressions. Pt was treated with IVF, Ativan 1 mg IV, lamotrigine 12.5 mg p.o. Pt will be admitted to the hospital under observation on telemetry for treatment and further evaluation of breakthrough cluster seizures. Hospital course: 57-year-old male with a PMH significant for?Parkinson's, TIA, HLD,hx of aspira tion pneumonia, anxiety/depression and cluster seizures currently on Keppra 100 mg t.i.d. and Depakote 500 mg t.i.d. with Ativan p.r.n. who presents to the ED from snf for cluster seizures this morning starting around 07:00, Pt admitted to the hospital under observation for treatment and further evaluation of breakthrough cluster seizures, patient treated with 3 doses of Ativan in ED that did not break seizure activity therefore Lamictal 12.5 mg added as per patient's primary neurologist Dr. Shafer recommendation, patient was continued on all baseline seizure medications including valproic acid, Keppra and felbamate, valproic acid level was therapeutic at 82.7 patient has had no further seizures since admission therefore being discharged back to snf and recommend outpatient follow-up with Dr. Shafer.. Hyponatremia mild 133 not because of seizures Hypothyroidism Continue levothyroxine HLD Continue statin Mood disorder Continue home meds Time Spent with Patient Time attestation: Total time managing care of this patient today ____ minutes. Discharge coordination time: Greater than 30 minutes Quality: Safe Use of Opioids Does Pt have an Active Cancer Diagnosis on the Problem List?: No Quality: Stroke Does the patient have a stroke diagnosis?: No Physical Exam Vital Signs: Vital Signs: Last Vital Signs Temp 97.1 F 04/02/23 07:15 Pulse 58 04/02/23 07:15 Resp 16 04/02/23 07:15 BP 136/69 04/02/23 07:15 Pulse Ox 97 04/02/23 07:15 O2 Del Method Room Air 04/02/23 07:15 BMI result Body Mass Index 26.0 Const: Other: General: Sitting in bed, no acute distress Head: Normocephalic, atraumatic Resp: CTA bilaterally CVS: S1, S2, RRR GI: +BS, NT, no distention Skin: Warm, dry Neuro: Nonverbal, communicate in 1 or 2 words Extremities: No edema DS: Data Data Completed and Pending Labs on day of discharge: Laboratory Results - last 24 hr 04/01/23 04/01/23 04/01/23 11:11 11:57 13:02 WBC 5.8 RBC 4.43 L Hgb 12.7 L Hct 37.2 L MCV 84.0 MCH 28.7 MCHC 34.1 RDW 13.5 Plt Count 217 MPV 9.2 L Immature Gran % (Auto) 0.2 Neut % (Auto) 66.6 Lymph % (Auto) 18.8 L [place] % (Auto) 13.9 H Eos % (Auto) 0.3 Baso % (Auto) 0.2 Lymph # (Auto) 1.1 L [place] # (Auto) 0.8 Eos # (Auto) 0.0 Baso # (Auto) 0.0 Abs Immat Gran (auto) 0.01 Absolute Neuts (auto) 3.8 Absolute Nucleated RBC 0.000 Nucleated RBC % (auto) 0.0 PT 12.8 INR 1.1 Sodium 133 L Potassium 3.8 Chloride 98 Carbon Dioxide 28 Anion Gap 11 L BUN 10 Creatinine 0.57 Estim Creat Clear Calc 156.9 Estimated GFR > 60 Random Glucose 108 Calcium 9.2 Magnesium 1.8 Total Bilirubin 0.1 Direct Bilirubin < 0.2 AST 16 ALT 11 Alkaline Phosphatase 45 Total Protein 6.6 Albumin 3.8 Urine Color Yellow Urine Appearance Clear Urine pH 8.0 Ur Specific [place] 1.020 Urine Protein Negative Urine Glucose (UA) Negative Urine Ketones Negative Urine Blood Negative Urine Nitrite Negative Ur Leukocyte Esterase Negative Valproic Acid 82.7 COVID-19 (NICANOR) Negative COVID-19 Clin Com See Note Discharge Plan Discharge Anticipated Discharge Date/Time: 04/02/23 10:36 Patient Disposition: Home, Self-Care Discharge Diagnosis: Breakthrough seizures Referrals: Julissa Marques PA [Primary Care Provider] - 1 Week Discharge Medications: New lamotrigine 25 mg Tablet 12.5 mg PO DAILY Qty: 30 0RF Continued levetiracetam 500 mg tablet 1,000 mg PO TID bacitracin 500 unit/gram ointment 1 appl ophthalmic (eye) BID clonazepam 0.5 mg Tablet 0.5 mg PO BEDTIME Rx Instructions: administer 30 minutes before bedtime clonazepam 0.5 mg Tablet 0.25 mg PO BID@0900,1200 felbamate 400 mg tablet 800 mg PO TID aspirin 81 mg tablet,delayed release (DR/EC) 81 mg PO DAILY simvastatin 40 mg tablet 40 mg PO BEDTIME levothyroxine 88 mcg tablet 88 mcg PO DAILY docusate sodium 100 mg Capsule 100 mg PO BID sertraline 50 mg tablet 50 mg PO DAILY divalproex [Depakote Sprinkles] 125 mg capsule, delayed rel sprinkle 500 mg PO TID cholecalciferol (vitamin D3) 1,250 mcg (50,000 unit) capsule 1,250 mcg PO QWEEK Desitin Daily Defense 13 % cream 1 appl topical TID multivitamin with folic acid [Thera] 400 mcg tablet 1 tab PO DAILY lorazepam 1 mg Tablet 1 mg PO Q30M MDD 3 PRN (Reason: Seizures) acetaminophen 325 mg Tablet 650 mg PO Q6H PRN (Reason: Fever Or Pain) Rx Instructions: not to exceed 3000mg in 24 hours Discharge Orders: Discharge Order (Routine); Ordered 04/02/23 Ordered By: Nolan Flores Diet: Advance to usual diet Activity on Discharge: As tolerated Stand Alone Forms: Patient Portal Discharge page Care Plan Goals: Breakthrough seizures take Lamictal 12.5 mg by mouth daily continue all other seizure medications Resume diet as before Health Concerns: Continue all home medications as before Plan of Treatment: Outpatient follow-up with primary neurologist Dr. Shafer at [facility] enter call for appointment Assessment: As above
[2023-04-02 11:05] VITALS: BP 127/63; PULSE 68; RESP 16; TEMP 36.3; O2SAT 99
--- NOTE | 2023-04-02 13:27 | MHC.CM.PN ---
Pt has been medically cleared for dc. He is going back to his correction via ambulance today. His guardian and correction staff have been informed and dc paperwork that they requested has been faxed.
== END 2023-04-02 14:15 | disposition home or self-care (01) ==
LOC: HO.ED 13:28 → HO.EDOVER 15:46 → HO.IMC 18:49
PROVIDERS: Physician Assistant; Admitting Provider Student in an Organized Health Care Education/Training Program; Emergency Provider Emergency Medicine; PCP Physician Assistant; Visit Provider Hospitalist
DX: R56.9 Unspecified convulsions (principal); G20.A1 Parkinson's disease without dyskinesia, without mention of fluctuations; E78.5 Hyperlipidemia, unspecified; E03.9 Hypothyroidism, unspecified; H54.8 Legal blindness, as defined in USA; E87.1 Hypo-osmolality and hyponatremia; Z11.52 Encounter for screening for COVID-19
CPT/HCPCS: 36415; 70450; 71045; 80048; 80076; 80164; 80177; 81003; 83735; 85025; 85610; 87635; 93005; 96361; 96372; 96374; 96376; 99222; 99285; J1650; J2060

== ENCOUNTER → 2023-04-01 15:44 | Outpatient (BNV) | payer OTHER, SELFPAY | PROVIDERS: Admitting Provider Student in an Organized Health Care Education/Training Program; Emergency Provider Emergency Medicine; PCP Physician Assistant; Visit Provider Student in an Organized Health Care Education/Training Program | DX: G40.919 Epilepsy, unspecified, intractable, without status epilepticus (principal) | CPT/HCPCS: 99222; 99239 ==

== ENCOUNTER 2023-06-08 04:03 | Inpatient (IN) | payer OTHER, SELFPAY ==
[2023-06-08] VITALS (12 sets, daily range): BP systolic 100–143; BP diastolic 43–97; PULSE 103–132; RESP 14–26; TEMP 36.9–40.1; O2SAT 91–99; BMI 27.4; BMI 28.3
--- NOTE | ~2023-06-08 | XR_ITS ---
EXAMINATION: XR CHEST CLINICAL INFORMATION: Fever. COMPARISON: 04/01/2023. TECHNIQUE: Frontal view of the chest was obtained. FINDINGS: The lung volumes are low. The patient's chin partially obscured the lung apices. The patient's hand partially obscures the left lung base. The cardiomediastinal silhouette is stable. There is no definitive focal lung consolidation or pleural effusion. The bony structures and soft tissues are unremarkable. XR/XR chest 1V IMPRESSION: Limited exam. No definitive evidence for active cardiopulmonary disease.
--- NOTE | ~2023-06-08 | CT_ITS ---
EXAMINATION: CT HEAD WITHOUT CONTRAST CLINICAL INFORMATION: High fevers. Evaluate for meningeal swelling. COMPARISON: 05/02/2019 TECHNIQUE: Multidetector volumetric imaging of the head was performed without intravenous contrast material. This CT examination was performed using dose optimization techniques as appropriate, variously including the following: *Automated exposure control *Adjustment of mA and/or kV according to patient size (this includes techniques or standardized protocols for targeted exams where dose is matched to indication/reason for exam; i.e. extremities or head) *Use of iterative reconstruction technique Dose: 2513 mGy-cm FINDINGS: There is no evidence of acute intracranial hemorrhage or territorial infarction. No abnormal mass-effect or midline shift is seen. Ly to white matter differentiation is well preserved. No extra axial fluid collections. Mild cortical volume loss is again noted, unchanged as compared to prior with minimal corresponding prominence of the ventricles and extra-axial CSF spaces. No ventricular asymmetry. There is a small lacunar infarct in the right vicente radiata which is unchanged. Basilar cisterns are patent. Prominent falcine and tentorial calcifications are again noted. Bilateral phthisis bulbi. Mild mucosal thickening at the ethmoid air cells. Mastoid air cells are clear. No acute osseous findings. CT/CT head/brain wo IV con IMPRESSION: No acute intracranial findings. Generalized parenchymal volume loss is unchanged as compared to prior studies. MRI with and without contrast would be more sensitive for acute meningeal abnormalities.
--- NOTE | ~2023-06-08 | XR_ITS ---
EXAMINATION: XR CHEST CLINICAL INFORMATION: Increased work of breathing. Aspiration. COMPARISON: Previous chest x-ray and chest CT from yesterday TECHNIQUE: Frontal view of the chest was obtained. FINDINGS: Exam is limited due to patient positioning. The cardiac silhouette does not appear enlarged. The lung volumes are low. There is increasing bilateral perihilar lung markings suggestive of airways disease or bronchial wall thickening. There may be increasing atelectasis or consolidation at the left lung base. No pleural effusion or pneumothorax. XR/XR chest 1V IMPRESSION: Limited exam. Low lung volumes. Central airways disease. Question increasing atelectasis or consolidation at the left lung base.
--- NOTE | ~2023-06-08 | CT_ITS ---
EXAMINATION: CT CHEST WITHOUT CONTRAST CLINICAL INFORMATION: Respiratory distress. Bronchi. Question aspiration. COMPARISON: None available. TECHNIQUE: Multidetector volumetric CT imaging of the chest was done. Axial MIP volume rendering provided. Sagittal and coronal reformatted images were obtained. This CT examination was performed using dose optimization techniques as appropriate, variously including the following: *Automated exposure control *Adjustment of mA and/or kV according to patient size (this includes techniques or standardized protocols for targeted exams where dose is matched to indication/reason for exam; i.e. extremities or head) *Use of iterative reconstruction technique DLP: 491 mGy-cm FINDINGS: LUNGS: There is diffuse mild bronchial wall thickening and increased peribronchial attenuation in the right lung. Appearance is suggestive of bronchopneumonia. Possible aspiration should be considered. Small calcified pulmonary nodules probably representing calcified granulomas. The left lung is otherwise clear. MEDIASTINUM: The mediastinum is normal. CORONARY ARTERY CALCIFICATION: None visualized on this study. PLEURA: There is no pleural effusion. No pleural mass or thickening. Question dependent right pleural calcification versus high attenuation material in the right lower lobe from prior aspiration. AXILLA: No lymphadenopathy. UPPER ABDOMEN: Excreted contrast in the kidneys. OSSEOUS STRUCTURES: Increased thoracic kyphosis. Right eighth and ninth anterior rib fractures. Degenerative changes of the spine. CT/CT chest wo IV con IMPRESSION: Diffuse mild bronchial wall thickening and increased peribronchial attenuation in the right lung suggestive of bronchopneumonia. Appearance compatible with aspiration pneumonia. Fleischner guidelines were followed.
--- NOTE | ~2023-06-08 | CT_ITS ---
EXAMINATION: CT ABDOMEN AND PELVIS WITH CONTRAST CLINICAL INFORMATION: Abdominal pain and diarrhea COMPARISON: None available. TECHNIQUE: Multidetector volumetric images were obtained from the superior aspect of the liver through the pubic symphysis following administration 85 mL of Omnipaque 350 intravenous contrast. Sagittal and coronal reformatted images were obtained on the technologist's workstation. Oral contrast: No This CT examination was performed using dose optimization techniques as appropriate, variously including the following: *Automated exposure control *Adjustment of mA and/or kV according to patient size (this includes techniques or standardized protocols for targeted exams where dose is matched to indication/reason for exam; i.e. extremities or head) *Use of iterative reconstruction technique DLP: 746 mGy-cm FINDINGS: LUNG BASES: The visualized lung bases are unremarkable. LIVER, GALLBLADDER, AND BILIARY TREE: The liver is normal in size, shape, and attenuation. No focal hepatic lesion or biliary ductal dilatation is present. The gallbladder is unremarkable with no evidence of radiopaque gallstones, gallbladder wall thickening, or obvious pericholecystic inflammatory changes. PANCREAS: Unremarkable. SPLEEN: Unremarkable. ADRENAL GLANDS: Unremarkable. KIDNEYS AND URETERS: The kidneys are normal in size, shape, and attenuation. No hydronephrosis, hydroureter, or calculi seen. No perinephric stranding. BLADDER: Unremarkable. GASTROINTESTINAL TRACT: The small and large bowel are unremarkable. The appendix is not seen. No inflammatory changes in the right lower quadrant. No ascites or free air. ABDOMINAL WALL: No significant hernia is appreciated. LYMPH NODES: Normal. VASCULAR: Atherosclerotic. PELVIC VISCERA: Unremarkable. OSSEOUS STRUCTURES: Degenerative changes of the spine. Heterotopic bone adjacent to the right iliac crest. Old right lower rib fractures. CT/CT abdomen pelvis w IV con IMPRESSION: Limited exam due to motion. No acute findings. Fleischner guidelines were followed.
--- NOTE | 2023-06-08 04:59 | ED.FEVER ---
HPI - Fever General Chief Complaint: Fever Stated Complaint: Sepsis Alert Time Seen by Provider: 06/08/23 04:09 Source: EMS Mode of arrival: EMS Limitations: other History of Present Illness HPI Narrative: Patient comes to the emergency room from a fpc. Patient at baseline is nonverbal. However, patient is a bit more awake and alert than today. The staff noted that the patient had a fever of 102 and was tachycardic. Also, according to the fpc staff, patient had brown colored emesis. Prior to arrival, patient received 800 cc of fluid. According to EMS, they were informed that the patient is prone to aspiration pneumonia. Related Data Home Medications Medication Instructions Recorded Confirmed acetaminophen 325 mg tablet 650 mg PO Q6H PRN Fever Or Pain 04/01/23 04/01/23 aspirin 81 mg tablet,delayed 81 mg PO DAILY 04/01/23 04/01/23 release bacitracin 500 unit/gram eye 1 appl ophthalmic (eye) BID 04/01/23 04/01/23 ointment cholecalciferol (vitamin D3) 1,250 1,250 mcg PO QWEEK 04/01/23 04/01/23 mcg (50,000 unit) capsule clonazepam 0.5 mg tablet 0.25 mg PO BID@0900,1200 04/01/23 04/01/23 clonazepam 0.5 mg tablet 0.5 mg PO BEDTIME 04/01/23 04/01/23 divalproex 125 mg capsule,delayed 500 mg PO TID 04/01/23 04/01/23 release sprinkle (Depakote Sprinkles) docusate sodium 100 mg capsule 100 mg PO BID 04/01/23 04/01/23 felbamate 400 mg tablet 800 mg PO TID 04/01/23 04/01/23 levetiracetam 500 mg tablet 1,000 mg PO TID 04/01/23 04/01/23 levothyroxine 88 mcg tablet 88 mcg PO DAILY 04/01/23 04/01/23 lorazepam 1 mg tablet 1 mg PO Q30M PRN Seizures 04/01/23 04/01/23 multivitamin with folic acid 400 1 tab PO DAILY 04/01/23 04/01/23 mcg tablet (Thera) sertraline 50 mg tablet 50 mg PO DAILY 04/01/23 04/01/23 simvastatin 40 mg tablet 40 mg PO BEDTIME 04/01/23 04/01/23 zinc oxide 13 % topical cream 1 appl topical TID 04/01/23 04/01/23 (Desitin Daily Defense) Previous Rx's Medication Instructions Recorded lamotrigine 25 mg tablet 12.5 mg (1/2 x 25 mg) PO DAILY #30 04/02/23 tabs Allergies Allergy/AdvReac Type Severity Reaction Status Date / Time erythromycin base Allergy Unknown HIVES Verified 06/08/23 04:18 [ERYTHROMYCIN BASE] gentamicin [GENTAMICIN] Allergy Unknown UNKNOWN Verified 06/08/23 04:18 Macrolide Antibiotics Allergy Unknown UNKNOWN Verified 06/08/23 04:18 [MACROLIDE ANTIBIOTICS] KETOLIDES Allergy Unknown UNKNOWN Uncoded 03/17/20 19:46 Review of Systems Review of Systems: Yes Unobtainable due to mental condition [facility] Past Medical History Medical History Epileptic seizure Depression Generalized anxiety disorder Ganglion cyst Aspiration pneumonia Parkinson disease Dysphagia Anxiety Constipation TIA (transient ischemic attack) Hyperlipidemia Glaucoma Hyperopia of left eye Proptosis Aphakia, both eyes Osteopenia Hypothyroidism Manjinder-Gastaut syndrome, intractable, with status epilepticus Social History Social History Household Members: Other Household Members Other:: fpc Housing: Other Housing Other:: fpc Do you presently have visiting nurse or other home services: Yes Unable to assess alcohol history related to: Unknown Patient Tobacco Use Status: Never used Tobacco Advance Directives: No Advance Directives Information Provided: Yes service: No Physical Exam Vital Signs: Vital Signs: Last Vital Signs Temp 101.5 F H 06/08/23 04:06 Pulse 120 H 06/08/23 06:40 Resp 14 06/08/23 06:40 Pulse Ox 98 06/08/23 06:40 O2 Del Method Room Air 06/08/23 06:40 BMI result Body Mass Index 27.4 Const: Other: Appearance: Alert. Seems weak Eyes: Pupils equal, round and reactive to light. ENT: Pharynx normal. The oral mucosa Neck: Normal inspection. Neck supple. No lymph nodes noted. No crepitus CVS: Tachycardic , heart rate approximately 120-130 Pulses normal. Normal S1 and S2 Respiratory: No respiratory distress. Breath sounds normal. No Wheezing. Bilateral crackles Abdomen: Soft and nontender. No rigidity. No distention. Skin: Skin warm and dry. Normal skin color. Normal skin turgor. Extremities: No lower extremity edema. Bilateral chronic contractures in the lower extremities Neuro: Unable to participate in cranial nerve assessment Psych: Calm, restless Course Course Course Narrative: -on arrival, patient was given fluids based on ideal weight of 77 kg, Levaquin was given IV to cover both long and infections. Patient's temperature is 101.5 degrees, blood pressure stable. -all of patient's labs and imaging pending Medications Administered Discontinued Medications Generic Name Dose Route Start Last Admin Trade Name Freq PRN Reason Stop Dose Admin Acetaminophen 650 mg 06/08/23 05:56 06/08/23 06:05 Acetaminophen Supp 650 Mg Supp.Rect MD 06/08/23 05:57 650 mg ONCE ONE Administration Sodium Chloride 2,500 mls @ 999 mls/hr 06/08/23 04:17 06/08/23 05:05 Ns IVCONT 06/08/23 06:47 999 mls/hr .Q2H31M ONE Administration Levofloxacin 500 mg in 100 mls @ 100 mls/hr 06/08/23 04:17 06/08/23 05:23 Levaquin IV 06/08/23 05:16 100 mls/hr ONCE ONE Administration Medical Decision Making Medical Decision Making [facility] Narrative: -interpretation of labs: patient's white blood cell count within normal limits, patient's sodium 128, patient receiving IV fluids. Lactic acid normal -my interpretation of chest x-ray: No obvious abnormality, urinalysis pending. -patient will likely need to be admitted. Sign-out given to Dr. Mary Differential Diagnosis Differential Diagnoses: The differential diagnosis associated with the presentation includes (Pneumonia, COVID, influenza, UTI) Admission/Observation Consideration of admission/observation: Escalation of care including admission/observation considered (Given patient's presentation on arrival, admission considered) Lab Data 06/08/23 05:01 06/08/23 05:00 Labs: Lab Results 06/08/23 06/08/23 06/08/23 Range/Units 04:53 05:00 05:01 WBC 7.2 (4.8-10.8) X10*3/uL RBC 4.56 L (4.60-5.80) X10*6/uL Hgb 13.0 L (14.0-18.0) g/dl Hct 37.5 L (42.0-52.0) % MCV 82.2 (80.0-98.0) fL MCH 28.5 (27.0-33.0) pg MCHC 34.7 (31.0-36.0) g/dl RDW 13.0 (11.0-16.0) % Plt Count 215 (160-400) X10*3/uL MPV 9.1 L (9.4-12.4) fL Immature Gran % (Auto) 0.4 (0.0-0.4) % Neut % (Auto) 76.1 H (45-73) % Lymph % (Auto) 8.9 L (20-40) % [place] % (Auto) 14.4 H (2-11) % Eos % (Auto) 0.1 (0-4) % Baso % (Auto) 0.1 (0-2) % Lymph # (Auto) 0.6 L (1.2-4.9) X10*3/uL [place] # (Auto) 1.0 (0.1-1.2) X10*3/uL Eos # (Auto) 0.0 (0.0-0.4) X10*3/uL Baso # (Auto) 0.0 (0.0-0.2) X10*3/uL Abs Immat Gran (auto) 0.03 (0.00-0.03) X10*3/uL Absolute Neuts (auto) 5.5 (2.0-8.3) x10*3/uL Absolute Nucleated RBC 0.000 (0.0-0.012) X10*3/uL Nucleated RBC % (auto) 0.0 (0.0-0.2) /100WBC Sodium 128 L (135-145) mmol/L Potassium 4.1 (3.3-5.1) mmol/L Chloride 95 L (96-108) mmol/L Carbon Dioxide 24 (22-29) mmol/L Anion Gap 13 (12-20) BUN 5 L (9-16) mg/dL Creatinine 0.53 (0.5-1.4) mg/dL Estim Creat Clear Calc 158.7 Estimated GFR > 60 Random Glucose 117 H (60-115) mg/dL Lactic Acid 1.4 (0.5-2.0) mmol/L Calcium 8.7 (8.4-10.2) mg/dL Magnesium 1.6 (1.6-2.6) mg/dL Total Bilirubin 0.2 (0.0-1.0) mg/dL Direct Bilirubin < 0.2 (0.0-0.5) mg/dL AST 20 (5-37) U/L ALT 12 (0-40) U/L Alkaline Phosphatase 46 (39-117) U/L Total Protein 6.8 (6.5-8.0) g/dL Albumin 3.8 (3.5-5.0) g/dL Stool Occult Blood (NEGATIVE) COVID-19 (NICANOR) Negative (Negative) COVID-19 Clin Com See Note Influenza Type A (WILLIAM) Negative (Negative) Influenza Type B (WILLIAM) Negative (Negative) Influenza A & B Note See Note 06/08/23 Range/Units 05:06 WBC (4.8-10.8) X10*3/uL RBC (4.60-5.80) X10*6/uL Hgb (14.0-18.0) g/dl Hct (42.0-52.0) % MCV (80.0-98.0) fL MCH (27.0-33.0) pg MCHC (31.0-36.0) g/dl RDW (11.0-16.0) % Plt Count (160-400) X10*3/uL MPV (9.4-12.4) fL Immature Gran % (Auto) (0.0-0.4) % Neut % (Auto) (45-73) % Lymph % (Auto) (20-40) % [facility] % (Auto) (2-11) % Eos % (Auto) (0-4) % Baso % (Auto) (0-2) % Lymph # (Auto) (1.2-4.9) X10*3/uL [facility] # (Auto) (0.1-1.2) X10*3/uL Eos # (Auto) (0.0-0.4) X10*3/uL Baso # (Auto) (0.0-0.2) X10*3/uL Abs Immat Gran (auto) (0.00-0.03) X10*3/uL Absolute Neuts (auto) (2.0-8.3) x10*3/uL Absolute Nucleated RBC (0.0-0.012) X10*3/uL Nucleated RBC % (auto) (0.0-0.2) /100WBC Sodium (135-145) mmol/L Potassium (3.3-5.1) mmol/L Chloride (96-108) mmol/L Carbon Dioxide (22-29) mmol/L Anion Gap (12-20) BUN (9-16) mg/dL Creatinine (0.5-1.4) mg/dL Estim Creat Clear Calc Estimated GFR Random Glucose (60-115) mg/dL Lactic Acid (0.5-2.0) mmol/L Calcium (8.4-10.2) mg/dL Magnesium (1.6-2.6) mg/dL Total Bilirubin (0.0-1.0) mg/dL Direct Bilirubin (0.0-0.5) mg/dL AST (5-37) U/L ALT (0-40) U/L Alkaline Phosphatase (39-117) U/L Total Protein (6.5-8.0) g/dL Albumin (3.5-5.0) g/dL Stool Occult Blood NEGATIVE (NEGATIVE) COVID-19 (NICANOR) (Negative) COVID-19 Clin Com Influenza Type A (WILLIAM) (Negative) Influenza Type B (WILLIAM) (Negative) Influenza A & B Note Discharge Plan Discharge Clinical Impression: Acute hyponatremia, Fever Patient Disposition: Still a Patient Prescriptions: No Action levetiracetam 500 mg tablet 1,000 mg PO TID bacitracin 500 unit/gram ointment 1 appl ophthalmic (eye) BID clonazepam 0.5 mg Tablet 0.5 mg PO BEDTIME Rx Instructions: administer 30 minutes before bedtime clonazepam 0.5 mg Tablet 0.25 mg PO BID@0900,1200 felbamate 400 mg tablet 800 mg PO TID aspirin 81 mg tablet,delayed release (DR/EC) 81 mg PO DAILY simvastatin 40 mg tablet 40 mg PO BEDTIME levothyroxine 88 mcg tablet 88 mcg PO DAILY docusate sodium 100 mg Capsule 100 mg PO BID sertraline 50 mg tablet 50 mg PO DAILY divalproex [Depakote Sprinkles] 125 mg capsule, delayed rel sprinkle 500 mg PO TID cholecalciferol (vitamin D3) 1,250 mcg (50,000 unit) capsule 1,250 mcg PO QWEEK Desitin Daily Defense 13 % cream 1 appl topical TID multivitamin with folic acid [Thera] 400 mcg tablet 1 tab PO DAILY lorazepam 1 mg Tablet 1 mg PO Q30M MDD 3 PRN (Reason: Seizures) acetaminophen 325 mg Tablet 650 mg PO Q6H PRN (Reason: Fever Or Pain) Rx Instructions: not to exceed 3000mg in 24 hours lamotrigine 25 mg Tablet 12.5 mg PO DAILY Qty: 30 0RF
[2023-06-08] MEDS: 0.9 % Sodium Chloride 2,500 ML 999 ML IVCONT (05:05)
[2023-06-08 05:07] LABS: Basophils Percent Auto 0.1 % (0-2); Eosinophils Percent Auto 0.1 % (0-4); Hematocrit 37.5 % (42.0-52.0); Imm Gran Abs Auto 0.03 X10*3/uL (0.00-0.03); Imm Gran Pct Auto 0.4 % (0.0-0.4); Lymphocytes Absolute Auto 0.6 X10*3/uL (1.2-4.9); Lymphocytes Percent Auto 8.9 % (20-40); MANUAL DIFF FLAG NO; Mean Corpuscular HGB Conc 34.7 g/dl (31.0-36.0); Mean Corpuscular Hemoglobin 28.5 pg (27.0-33.0); Mean Corpuscular Volume 82.2 fL (80.0-98.0); Mean Platelet Volume 9.1 fL (9.4-12.4); Monocytes Percent Auto 14.4 % (2-11); Neutrophils Absolute Auto 5.5 x10*3/uL (2.0-8.3); Neutrophils Percent Auto 76.1 % (45-73); Platelet Count 215 X10*3/uL (160-400); Red Blood Count 4.56 X10*6/uL (4.60-5.80); White Blood Count 7.2 X10*3/uL (4.8-10.8)
[2023-06-08 05:12] LABS: OBS Int Ctl Valid YES; OBS1 NEGATIVE (NEGATIVE)
[2023-06-08 05:23] LABS: COVID-19 Test Negative (Negative); IDNOW Serial# 08D9AD1C; IDNOW Serial# BCCEAD1C; Influenza A Negative (Negative); Influenza B2 Negative (Negative)
[2023-06-08] MEDS: levoFLOXacin/D5W 500 MG/100 ML PIGGYBACK 100 MG IV (05:23)
[2023-06-08 05:24] LABS: Lactic Acid 1.4 mmol/L (0.5-2.0)
[2023-06-08 05:30] LABS: Alanine Aminotransferase 12 U/L (0-40); Albumin Level 3.8 g/dL (3.5-5.0); Alkaline Phosphatase 46 U/L (39-117); Anion Gap 13 (12-20); Aspartate Amino Transferase 20 U/L (5-37); Bilirubin Direct < 0.2 mg/dL (0.0-0.5); Bilirubin Total 0.2 mg/dL (0.0-1.0); Blood Urea Nitrogen 5 mg/dL (9-16); Calcium 8.7 mg/dL (8.4-10.2); Carbon Dioxide 24 mmol/L (22-29); Chloride 95 mmol/L (96-108); Creatinine Clr Calc Pharmacy 158.7; Estimated Glomerular Filt Rate > 60; Glucose Random 117 mg/dL (60-115); Magnesium 1.6 mg/dL (1.6-2.6); Potassium 4.1 mmol/L (3.3-5.1); Sodium 128 mmol/L (135-145); Total Protein 6.8 g/dL (6.5-8.0)
--- NOTE | 2023-06-08 05:34 | PC.NURSE ---
pt biba febrile at custodial; tachy. ems reported pt had vomiting episode at custodial prior to ems arrival. on arrival rectal temp 101.5F. sinus tachy 125 bpm. sats 95% on RA. pt contracted at baseline. pt at baseline mentation. pt changed over. 2 episodes of diarrhea; pt cleaned and changed again. 3 attempts at ramos unable to; Dr. Tapia aware. labs drawn. Iv via ems. ivf and abx infusing. bilat expiratory rhonci on ausc. +1 non pitting edema ble. +pulses.
[2023-06-08] MEDS: Acetaminophen Supp 650 MG SUPP.RECT PR ×2 (06:05→13:26)
--- NOTE | 2023-06-08 06:25 | PC.NURSE ---
rectal tylenol given. pt changed and cleaned again another episode of loose stool. pt repositioned. [place] cath placed.
[2023-06-08 07:23] LABS: Appearance Urine Clear; Color Urine Yellow; Glucose Urine UA Negative (Negative); Leukocyte Esterase Urine Negative (Negative); Nitrite Urine Negative (Negative); Urine Blood Negative (Negative); Urine Ketones Negative (Negative); Urine Protein Negative (Neg-Trace)
--- NOTE | 2023-06-08 08:50 | PC.NURSE ---
patient incontinent of stool, cleaned and repositioned in room. ?seizure after repositioning lasting under 30 seconds, seizure history per the care home staff at bedside. patient now behaving at baseline per staff. staff reports patient eats pureed diet and takes medications crushed in applesauce or pudding. pending disposition at this time. staff remains at bedside.
[2023-06-08] MEDS: iohexoL 350 MG/ML 100 ML INFUS..BTL 85 ML IV (10:56)
--- NOTE | 2023-06-08 11:38 | PHA.MEDREC ---
Pharmacy Consult ? Medication Reconciliation Pharmacy has completed the medication reconciliation. used list from [facility].
--- NOTE | 2023-06-08 13:15 | P.HPHOSP_ITS ---
History of Present Illness Date of Service: 06/08/23 Attending physician on admission: Yeison Banks Chief Complaint: fever, ams, vomiting 57-year-old male with history of hypothyroidism, osteopenia, glaucoma, hyperlipidemia, history of CVA, chronic constipation, anxiety, parkinson's disease, dysphagia, history aspiration pneumonia, epileptic seizure disorder with manjnider-gastaut syndrome presented to the ED via EMS from assisted accompanied by assisted staff for evaluation of fevers, altered mental status, lethargy, vomiting, and diarrhea ongoing since last night. Patient is unable to provide history secondary to mental status, history obtained from assisted staff, Yadira. Per her report, overnight the patient was noted to be vomiting with diarrhea. He is also congested with intermittent cough. She states at baseline, patient is alert, largely nonverbal but will answer yes/no to basic questions. She states he does have intermittent seizures throughout the day. No one at assisted with similar symptoms. On arrival, patient is febrile to 101.5, tachycardic to 129, tachypneic to 24 without any hypoxia or hypotension. On admission, patient is noted to be tachycardic to 130, tachypneic to 33, and febrile to 103. Oximetry 98%. Patient is noted to be in [id number] respiratory distress. Ordered 2 mg IV morphine. There is no leukocytosis. Stable normocytic anemia with H/H 13.0/37.5%. Renal function is normal. He has a hyponatremia of 128, chloride 95. All other electrolytes within normal limit. Glucose 117. Lactic acid 1.4. Hepatic function normal. Urinalysis unremarkable. Stool occult blood negative. Negative for COVID-19, influenza. Chest x-ray without any acute cardiopulmonary abnormality. CT of the abdomen/pelvis negative for any acute intra-abdominal abnormality. In the ED, given 1 L IV NS, Tylenol for fever, 500 mg IV Levaquin. Review of Systems 2 Review of Systems: Yes Unobtainable due to mental status [facility] Medical History Epileptic seizure Depression Generalized anxiety disorder Ganglion cyst Aspiration pneumonia Parkinson disease Dysphagia Anxiety Constipation TIA (transient ischemic attack) Hyperlipidemia Glaucoma Hyperopia of left eye Proptosis Aphakia, both eyes Osteopenia Hypothyroidism Manjinder-Gastaut syndrome, intractable, with status epilepticus Social History Household Members: Other Household Members Other:: assisted Housing: Other Housing Other:: assisted Do you presently have visiting nurse or other home services: Yes Unable to assess alcohol history related to: Unknown Patient Tobacco Use Status: Never used Tobacco Advance Directives: No Advance Directives Information Provided: Yes service: No Meds Allergies Allergy/AdvReac Type Severity Reaction Status Date / Time erythromycin base Allergy Unknown HIVES Verified 06/08/23 04:18 [ERYTHROMYCIN BASE] gentamicin [GENTAMICIN] Allergy Unknown UNKNOWN Verified 06/08/23 04:18 Macrolide Antibiotics Allergy Unknown UNKNOWN Verified 06/08/23 04:18 [MACROLIDE ANTIBIOTICS] KETOLIDES Allergy Unknown UNKNOWN Uncoded 03/17/20 19:46 Active Medications: Current Medications Acetaminophen (Acetaminophen Supp 650 Mg Supp.Rect) 650 mg AK Q6H PRN PRN Reason: Pain, Mild, fever Heparin Sodium (Porcine) (Heparin Sodium,Porcine 5,000 Unit/Ml Vial) 5,000 unit SUBCUT Q12H KATHERINE Sodium Chloride (Ns) 1,000 mls @ 100 mls/hr IVCONT .Q10H KATHERINE Piperacillin Sod/Tazobactam (Sod 4.5 gm/ Sodium Chloride) 100 mls @ 200 mls/hr IV Q6H KATHERINE Ondansetron HCl (Ondansetron Hcl 4 Mg/2 Ml Vial) 4 mg IVPUSH Q8H PRN PRN Reason: Nausea and Vomiting Sodium Chloride (0.9 % Sodium Chloride Flush 3 Ml Syringe) 3 ml IVFLUSH QSHIFT KATHERINE Home Medications Medication Instructions Recorded Confirmed Last Taken Type acetaminophen 325 mg tablet 650 mg PO Q6H PRN Fever Or Pain 04/01/23 06/08/23 Unknown History aspirin 81 mg tablet,delayed 81 mg PO DAILY 04/01/23 06/08/23 Unknown History release bacitracin 500 unit/gram eye 1 appl ophthalmic (eye) BID PRN 04/01/23 06/08/23 Unknown History ointment wounds cholecalciferol (vitamin D3) 1,250 1,250 mcg PO WE 04/01/23 06/08/23 Unknown History mcg (50,000 unit) capsule clonazepam 0.5 mg tablet 0.25 mg PO BID@0800,1200 04/01/23 06/08/23 Unknown History clonazepam 0.5 mg tablet 0.5 mg PO BEDTIME 04/01/23 06/08/23 Unknown History divalproex 125 mg capsule,delayed 500 mg PO TID 04/01/23 06/08/23 Unknown History release sprinkle (Depakote Sprinkles) docusate sodium 100 mg capsule 100 mg PO BID@0800,2000 04/01/23 06/08/23 Unknown History felbamate 400 mg tablet 800 mg PO TID 04/01/23 06/08/23 Unknown History levetiracetam 500 mg tablet 1,000 mg PO TID 04/01/23 06/08/23 Unknown History levothyroxine 88 mcg tablet 88 mcg PO DAILY 04/01/23 06/08/23 Unknown History lorazepam 1 mg tablet 1 mg PO Q30M PRN Seizures 04/01/23 06/08/23 Unknown History multivitamin with folic acid 400 1 tab PO QAM 04/01/23 06/08/23 Unknown History mcg tablet (Thera) sertraline 50 mg tablet 50 mg PO BEDTIME 04/01/23 06/08/23 Unknown History simvastatin 40 mg tablet 40 mg PO BEDTIME 04/01/23 06/08/23 Unknown History zinc oxide 13 % topical cream 1 appl topical TID PRN Rash 04/01/23 06/08/23 Unknown History (Desitin Daily Defense) bisacodyl 10 mg rectal suppository 10 mg AK DAILY PRN Constipation 06/08/23 06/08/23 Unknown History (OneLAX Bisacodyl) guaifenesin 100 mg/5 mL oral liquid 200 mg PO Q6H PRN Cough 06/08/23 06/08/23 Unknown History lamotrigine 25 mg tablet 12.5 mg PO QAM 06/08/23 06/08/23 Unknown History magnesium hydroxide 400 mg/5 mL 30 ml PO Q OTHER DAY PRN 06/08/23 06/08/23 Unknown History oral suspension (Milk of Magnesia) Constipation polyethylene glycol 3350 17 17 g PO QAM 06/08/23 06/08/23 Unknown History gram/dose oral powder sodium phosphates 19 gram-7 118 ml AK DIRECTED PRN 06/08/23 06/08/23 Unknown History gram/118 mL enema (Enema Constipation Disposable) white petrolatum-mineral oil 57.3 0.25 inch ophthalmic (eye) BEDTIME 06/08/23 06/08/23 Unknown History %-42.5 % eye ointment (Refresh P.M.) Physical Exam 2 Vital Signs and Narrative: Vital Signs: Last Vital Signs Temp 98.5 F 06/08/23 08:22 Pulse 103 H 06/08/23 08:22 Resp 20 06/08/23 08:22 BP 134/97 H 06/08/23 08:22 Pulse Ox 96 06/08/23 08:22 O2 Del Method Room Air 06/08/23 08:22 BMI result Body Mass Index 27.4 Constitutional - lethargic, obtunded laying on side with increased wob, sick appearing Eyes - PERRLA, EOMI Cardiovascular - S1S2, RRR, 1+ ble edema Respiratory - Normal lung expansion, increased wob, Moderate respiratory distress, diffuse rhonchi bilaterally, scattered expiratory wheezing Gastrointestinal - NT / ND; +BS; No rebound or guarding Extremities - no calf tenderness bilaterally Musculoskeletal - Normal inspection, normal ROM Skin - Hot, Dry Neurological - Lethargic, nonverbal Results Labs 06/08/23 05:01 06/08/23 05:00 Labs: Laboratory Results - last 24 hr 06/08/23 06/08/23 06/08/23 04:53 05:00 05:01 MCV 82.2 MCH 28.5 MCHC 34.7 RDW 13.0 Plt Count 215 MPV 9.1 L Immature Gran % (Auto) 0.4 Neut % (Auto) 76.1 H Lymph % (Auto) 8.9 L [place] % (Auto) 14.4 H Eos % (Auto) 0.1 Baso % (Auto) 0.1 Lymph # (Auto) 0.6 L [place] # (Auto) 1.0 Eos # (Auto) 0.0 Baso # (Auto) 0.0 Abs Immat Gran (auto) 0.03 Absolute Neuts (auto) 5.5 Absolute Nucleated RBC 0.000 Nucleated RBC % (auto) 0.0 Anion Gap 13 Estim Creat Clear Calc 158.7 Estimated GFR > 60 Random Glucose 117 H Lactic Acid 1.4 Calcium 8.7 Magnesium 1.6 Total Bilirubin 0.2 Direct Bilirubin < 0.2 AST 20 ALT 12 Alkaline Phosphatase 46 Total Protein 6.8 Albumin 3.8 Urine Color Urine Appearance Urine pH Ur Specific Alliance Urine Protein Urine Glucose (UA) Urine Ketones Urine Blood Urine Nitrite Ur Leukocyte Esterase Stool Occult Blood COVID-19 (NICANOR) Negative COVID-19 Muut Com See Note Influenza Type A (WILLIAM) Negative Influenza Type B (WILLIAM) Negative Influenza A & B Note See Note 06/08/23 06/08/23 05:06 07:00 MCV MCH MCHC RDW Plt Count MPV Immature Gran % (Auto) Neut % (Auto) Lymph % (Auto) [place] % (Auto) Eos % (Auto) Baso % (Auto) Lymph # (Auto) [place] # (Auto) Eos # (Auto) Baso # (Auto) Abs Immat Gran (auto) Absolute Neuts (auto) Absolute Nucleated RBC Nucleated RBC % (auto) Anion Gap Estim Creat Clear Calc Estimated GFR Random Glucose Lactic Acid Calcium Magnesium Total Bilirubin Direct Bilirubin AST ALT Alkaline Phosphatase Total Protein Albumin Urine Color Yellow Urine Appearance Clear Urine pH 8.0 Ur Specific Alliance 1.010 Urine Protein Negative Urine Glucose (UA) Negative Urine Ketones Negative Urine Blood Negative Urine Nitrite Negative Ur Leukocyte Esterase Negative Stool Occult Blood NEGATIVE COVID-19 (NICANOR) COVID-19 Muut Com Influenza Type A (WILLIAM) Influenza Type B (WILLIAM) Influenza A & B Note Imaging Radiologist's Impressions: Impressions Chest X-Ray 06/08/23 05:10 IMPRESSION: Limited exam. No definitive evidence for active cardiopulmonary disease. Abdomen/Pelvis CT 06/08/23 10:56 IMPRESSION: Limited exam due to motion. No acute findings. Fleischner guidelines were followed. Assessment and Plan (1) Suspected pulmonary aspiration of food: Status: Acute (2) Acute metabolic encephalopathy: Status: Acute (3) Sepsis: Status: Acute (4) Acute hyponatremia: Status: Acute (5) Fever: Status: Acute Plan 57-year-old male with history of hypothyroidism, osteopenia, glaucoma, hyperlipidemia, history of CVA, chronic constipation, anxiety, parkinson's disease, dysphagia, history aspiration pneumonia, epileptic seizure disorder with manjinder-gastaut syndrome admitted for suspected aspiration pneumonia with sepsis with acute metabolic encephalopathy and respiratory distress. #Suspected aspiration pneumonia with sepsis -febrile, tachycardic, tachypneic. Lactic acid normal, no end organ damage or hypotension. No severe sepsis/shock -CXR negative. CT chest pending -IV zosyn 4.5g q6h (initiated 06/08) -Keep NPO due to mentation and aspiration. [employer]ADE SHOEMAKER eval pending -Nasal suction prn -tylenol prn fevers -Continue IVF -Follow CBC, cultures #Acute respiratory distress -2/2 to above -no hypoxia -given 2mg IV morphine -suction prn as above -monitor closely #Acute metabolic encephalopathy -2/2 above -monitor mentation #Acute n/v/d -GI panel and cdiff pcr pending -ondansetron prn -npo #Moderate hyponatremia -likely 2/2 GI losses -Urine osm and seum osm pending -Given 2.5L IV NS, continue IVF @100 ml/hr -Recheck sodium now, follow daily -Nephrology consult if not improving #Epileptic seizure d/o with manjinder-gastaut syndrome -Change depakote and keppra to IV -Hold lamotrigine and felbamate due to npo status, resume as mentation improves -ativan prn for breakthrough cluster seizures #Hypothyroidism -Hold levothyroxine for now -Consider IV if still unable to tolerate PO 2/2 above #HLD -hold statin for now #Anxiety -change katherine clonazepam to IV ativan -hold sertraline DVT prophylaxis- heparin Full code Guardian- Clementine Lopez [phone] Diet- pt is pureed diet, thin liquids at assisted Given patient's acute metabolic encephalopathy and sepsis due to a suspected aspiration pneumonia with associated respiratory distress, the patient will require admission for at least 2 midnights for IV antibiotics, Iv narcotics for respiratory distress as well as close monitoring of mental status and vital signs to prevent decompensation into respiratory failure, severe sepsis, or septic shock. he will also be kept NPO to prevent further aspiration and will require advancement of diet once mentation improves. Quality Stroke Does the patient have a stroke diagnosis?: No VTE Prior VTE?: No VTE Risk Level:: Medical - moderate - high VTE Device Contraindication: Treatment Not Indicated VTE Drug Contraindication: N/A - Med Ordered
[2023-06-08] MEDS: Morphine Sulfate 2 MG/ML CARTRIDGE IVPUSH (13:26)
[2023-06-08] MEDS: Heparin Sodium,Porcine 5,000 UNIT/ML VIAL 5000 UNIT SUBCUT (13:26)
--- NOTE | 2023-06-08 13:39 | PC.NURSE ---
changed and repositioned in bed, rectal temp rechecked and found to be febrile at 103.2. hospitalist aware, prn UT tylenol administered. NPO at this time pending speech evaluation.
[2023-06-08 15:01] LABS: Osmolality, Serum 271 mosm/kg (281-305)
[2023-06-08 15:05] LABS: Anion Gap 12 (12-20); Blood Urea Nitrogen 5 mg/dL (9-16); Calcium 8.9 mg/dL (8.4-10.2); Carbon Dioxide 26 mmol/L (22-29); Chloride 95 mmol/L (96-108); Creatinine Clr Calc Pharmacy 142.6; Estimated Glomerular Filt Rate > 60; Glucose Random 93 mg/dL (60-115); Potassium 4.3 mmol/L (3.3-5.1); Sodium 129 mmol/L (135-145)
[2023-06-08 15:16] LABS: Adenovirus F 40/41 Not Detected (Not Detect.); Astrovirus Not Detected (Not Detect.); Campylobacter Not Detected (Not Detect.); Cryptosporidium Not Detected (Not Detect.); Cyclospora cayetanensis Not Detected (Not Detect.); E. coli EAEC Not Detected (Not Detect.); E. coli EPEC Not Detected (Not Detect.); E. coli ETEC Not Detected (Not Detect.); E. coli STEC Not Detected (Not Detect.); Entamoeba histolytica Not Detected (Not Detect.); Giardia lamblia Not Detected (Not Detect.); Norovirus GI/GII Not Detected (Not Detect.); Plesiomonas shigelloides Not Detected (Not Detect.); Rotavirus A Not Detected (Not Detect.); Salmonella Not Detected (Not Detect.); Sapovirus Not Detected (Not Detect.); Shigella sp./EIEC Not Detected (Not Detect.); Vibrio Not Detected (Not Detect.); Vibrio Cholerae Not Detected (Not Detect.); Yersinia enterocolitica Not Detected (Not Detect.)
[2023-06-08] MEDS: LORazepam 2 MG/ML VIAL 0.25 MG IVPUSH (15:27)
[2023-06-08] MEDS: 0.9 % Sodium Chloride 1,000 ML 100 ML IVCONT (15:27)
[2023-06-08] MEDS: Piperacillin Sodium/Tazobactam 4.5 GM in 0.9 % Sodium Chloride 100 ML IV (15:28)
[2023-06-08 16:00] LABS: CDiff Gene PCR NEGATIVE (Negative)
[2023-06-08] MEDS: levETIRAcetam in NaCl (iso-os) 1,000 MG/100 ML PIGGYBACK 400 MG IV ×2 (16:42→21:29)
[2023-06-08] MEDS: Valproic Acid (as Sodium Salt) 500 MG in Dextrose 5 % 50 ML 55 MG IV ×2 (16:53→22:50)
[2023-06-08] MEDS: Acetaminophen 1,000 MG/100 ML PIGGYBACK 400 MG IV (18:07)
[2023-06-08] MEDS: 0.9 % Sodium Chloride 1,000 ML 999 ML IV (19:33)
--- NOTE | 2023-06-08 19:35 | PC.NURSE ---
Patient arrived from ED on stretcher approximately 1600 slide to bed with staff assist. Pt minimally verbal at baseline does not follow commands only yells out on occasion. long-term staff at bedside. Rectal temp on arrival 103.[address] Banks notified on unit to see patient. IV keppra, Dilantin and Tylenol given per order as well as IV fluids infusing. Pt with baseline seizure activity noted per prison staff, extremities become rigid with trembling frequently. Sinus tach on tele teens to 130's. LS dim bases no respiratory distress noted. BS+X4 abdomen soft non-tender incontinent of stool and urine on arrival incont care provided [place] cath placed at this time. Repeat rectal temp at 1900 104.2 A. Brittanie NEGRETE notified, Night RN aware of orders and plan. Bed in lowest locked position alarm for safety. Will continue to monitor and report changes
[2023-06-08] MEDS: Ketorolac Tromethamine 15 MG/ML VIAL IVPUSH (19:42)
[2023-06-08] MEDS: cefTRIAXone sodium 2 GM in 0.9 % Sodium Chloride 50 ML IV (19:42)
[2023-06-08 19:54] LABS: TSH reflex Free T4 1.82 uIU/mL (0.32-4.0)
[2023-06-08] MEDS: metroNIDAZOLE/NS 500 MG/100 ML PIGGYBACK 100 MG IV (20:28)
[2023-06-08] MEDS: LORazepam 2 MG/ML VIAL 0.5 MG IVPUSH (21:25)
--- NOTE | 2023-06-08 23:56 | PC.NURSE ---
Assumed care for patient at approx 1900. Retal temp noted at 104.2. 1L NS IV Bolus ordered and given, 1x dose IV 15mg Tordal administered, IV antibiotics Flagyl and Ceftriaxone ordered and given per AUG. Brittanie NEGRETE to bedside to assess patient. Cooling blanket ordered but held, per group program manager cold temps can make the patient start seizing more frequently. Okay per PA and to recheck rectal temps. Rectal temp rechecked at 2030 for 102.2 and then again at 2230 at 100.2. STAT Head CT obtained. All IV seizures meds given. NS infusing at 100mls/hr. Sinus Tach on loom fixer supervisor. Incontinent of stool, [place] cath in place draining CYU. assistedhomebirth midwife in room. Report given to next RN at 2300.
[2023-06-09] VITALS (22 sets, daily range): BP systolic 95–208; BP diastolic 42–94; PULSE 87–133; RESP 13–32; TEMP 36.3–39.9; O2SAT 88–100
--- NOTE | 2023-06-09 00:40 | PC.NURSE ---
PT RECTAL TEMP CURRENTLY 100.1,REMAINS STACH,HR 106.BP 95/42 MAP 56.SATS CAN DIP TO 81 ON ROOM AIR. UPDATED.NS BOLUS 1000 CC ORDERED.AND O2 ORDERED.MULTIPLE ATTEMPTS TO PLACE O2 BUT PT BECOMES AGITATED AND QUICKLY REMOVES IT.OXYMASK PLACED BY PATIENTS FACE WITH SAT 81-92%.
[2023-06-09] MEDS: 0.9 % Sodium Chloride 1,000 ML 999 ML IV (01:10)
--- NOTE | 2023-06-09 02:40 | MHC.PIE ---
P.RIM FIRE PRIMING TOOL SETTER I.PT'S SAT DROPPED TO 71%,TACHYCARDIC 120'S,BP UP TO 185/95(POST BOLUS) SMALL RIGID SEIZURE NOTED.RIM FIRE PRIMING TOOL SETTER CALLED.PT GIVEN ATIVAN 1 MG IV STAT AND LASIX 20MG IV STAT FOR FLUID OVERLOAD.IV FLUIDS HELD.BP IMPROVED TO 135/66.PT CALMER AFTER ATIVAN. E.INCONTINENT LARGE AMOUNT OF URINE AND AN ADDITIONAL 700CC VIA [place] CATH AFTER LASIX.DR QUINN UPDATED.
[2023-06-09] MEDS: LORazepam 2 MG/ML VIAL 1 MG IVPUSH (02:45)
--- NOTE | 2023-06-09 02:55 | P.EN_ITS ---
Event Note Date of Service: 06/09/23 Event Note: PROFESSOR OF THEATER called for patient who is very agitated and as a result is pulling off his oxygen mask and becoming hypoxemic Ass/Plan Agitation - received 1 mg of IV ativan to calm him down - continue to monitor Hypoxemia - he appears to be in mild to moderate resp distress using his abdominal muscles - he also has audible wheezes - his Oxygen dropped to 70% when off Oxygen - he is not on home oxygen - will give 20 mg of IV lasix (he received a litre bolus of fluids) - re-evaluate O2 needs once he is calmed down Time Spent With Patient Time: Total time managing care of this patient today _15___ minutes.
[2023-06-09] MEDS: Furosemide 20 MG/2 ML VIAL IVPUSH (03:00)
[2023-06-09] MEDS: metroNIDAZOLE/NS 500 MG/100 ML PIGGYBACK 100 MG IV ×2 (03:14→12:24)
[2023-06-09] MEDS: Acetaminophen Supp 650 MG SUPP.RECT PR ×2 (03:30→11:45)
--- NOTE | 2023-06-09 05:54 | PC.NURSE ---
CURRENT VITALS:101 RECTAL,HR 95,R 22,BP 122/60(86 MAP).PT RESTING QUIETLY.DR QUINN UPDATED.
[2023-06-09] MEDS: cefTRIAXone sodium 2 GM in 0.9 % Sodium Chloride 50 ML IV (06:26)
[2023-06-09 06:46] LABS: MANUAL DIFF FLAG NO
[2023-06-09 07:01] LABS: Basophils Percent Auto 0.4 % (0-2); Eosinophils Percent Auto 0.2 % (0-4); Hematocrit 35.8 % (42.0-52.0); Hemoglobin 12.2 g/dl (14.0-18.0); Imm Gran Abs Auto 0.04 X10*3/uL (0.00-0.03); Imm Gran Pct Auto 0.8 % (0.0-0.4); Lymphocytes Absolute Auto 0.4 X10*3/uL (1.2-4.9); Mean Corpuscular HGB Conc 34.1 g/dl (31.0-36.0); Mean Corpuscular Hemoglobin 28.8 pg (27.0-33.0); Mean Corpuscular Volume 84.6 fL (80.0-98.0); Mean Platelet Volume 9.6 fL (9.4-12.4); Monocytes Absolute Auto 0.7 X10*3/uL (0.1-1.2); Monocytes Percent Auto 14.3 % (2-11); Neutrophils Absolute Auto 3.9 x10*3/uL (2.0-8.3); Neutrophils Percent Auto 76.3 % (45-73); Platelet Count 199 X10*3/uL (160-400); Red Blood Count 4.23 X10*6/uL (4.60-5.80); Red Cell Distribution Width 13.2 % (11.0-16.0); White Blood Count 5.1 X10*3/uL (4.8-10.8)
[2023-06-09] MEDS: Valproic Acid (as Sodium Salt) 500 MG in Dextrose 5 % 50 ML 55 MG IV ×3 (07:02→23:35)
[2023-06-09 07:18] LABS: Blood Urea Nitrogen 4 mg/dL (9-16); Calcium 8.4 mg/dL (8.4-10.2); Creatinine Clr Calc Pharmacy 166.9; Estimated Glomerular Filt Rate > 60; Glucose Random 92 mg/dL (60-115); Magnesium 1.6 mg/dL (1.6-2.6)
[2023-06-09 07:34] LABS: Anion Gap 15 (12-20); Carbon Dioxide 27 mmol/L (22-29); Chloride 96 mmol/L (96-108); Potassium 3.3 mmol/L (3.3-5.1); Sodium 135 mmol/L (135-145)
[2023-06-09] MEDS: LORazepam 2 MG/ML VIAL 0.25 MG IVPUSH ×2 (08:27→12:25)
[2023-06-09] MEDS: 0.9 % Sodium Chloride Flush 3 ML SYRINGE IVFLUSH ×3 (08:28→23:35)
[2023-06-09] MEDS: levETIRAcetam in NaCl (iso-os) 1,000 MG/100 ML PIGGYBACK 400 MG IV ×3 (08:30→20:21)
[2023-06-09] MEDS: Morphine Sulfate 2 MG/ML CARTRIDGE IVPUSH ×2 (08:53→12:25)
--- NOTE | 2023-06-09 09:55 | MHC.CM.PN ---
Pt unable to answer questions due to mental status (non-verbal at this time), pt resides in a Retirement. Yadira one of the snf workers is present at bedside and able to provide information to this CM. At pts baseline he is able to say just a few words, but unable to engage in conversation. He is fully dependent, bed bound, simón lift for transfers, and uses a wheelchair. Retirement number is [phone], the snf nurse is Clementine Zhu, she will be in tomorrow Sunday 06/10. Pt will need BLS transport at discharge. Pt has a guardian, Clementine Antunez [phone], this CM called guardian to update. DCP: likely returning to the snf when medically cleared. PCP: Julissa NEGRETE
--- NOTE | 2023-06-09 10:31 | HO.PM.IMPN ---
Subjective Subjective Date of Service: 06/09/23 Interval History: Seen in follow for fevers, ams, aspiration pneumonia, seizures Interval history: Continues with fevers 101-103, tachycardic. Continues with intermittent convulsions lasting <10seconds (baseline). He is nonverbal at this time. Unable to provide history. Per RN, continues intermittently aspirating on saliva. RT performing oropharyngeal suction, CPT. Continues with groaning and increased wob. FINANCIAL SALES REPRESENTATIVE called overnight due to patient aggitation, hypoxia with O2 in 70s, following rigid seizure. Also given 20mg IV lasix for suspected fluids overload following fluid boluses in ED. Review of Systems Review of Systems: Yes Unobtainable due to mental status Physical Exam Vital Signs: Vital Signs: Last Vital Signs Temp 100.8 F H 06/09/23 08:46 Pulse 90 06/09/23 07:13 Resp 32 H 06/09/23 08:53 BP 105/52 L 06/09/23 07:13 Pulse Ox 100 06/09/23 07:13 O2 Del Method Room Air 06/09/23 07:13 O2 Flow Rate 15 06/09/23 05:51 Oxygen Flow Rate 15 06/09/23 02:56 BMI result Body Mass Index 28.3 Constitutional - Awake, lethargic, contracted wtih alrms crossed across chest rocking, mild distress, groaning Eyes - PERRLA, EOMI Neck - neck in flexion, but supple. No nuchal rigidity Cardiovascular - S1S2, RRR, No edema Respiratory - Normal lung expansion, increased wob with accessory muscle use, groaning with mild/moderate respiratory distress, no hypoxia, rhonchi bilaterally Extremities - no calf tenderness bilaterally, no swelling Skin - Warm/Dry Neurological - Awake, lethargic, nonverbal. Unable to assess Brudzinski's sign as patient neck is already in flexion with knees flexed, but will not allow me to further maneuver head. Negative Kernig sign Psychological - Appropriate affect Objective Data Active Medications Acetaminophen (Acetaminophen Supp 650 Mg Supp.Rect) [address] Q6H PRN PRN Reason: Pain, Mild, fever Last Admin: 06/09/23 03:30 Dose: 650 mg Documented By: ETHEL Bisacodyl (Bisacodyl 10 Mg Supp.Rect) [address] DAILY PRN PRN Reason: Constipation Erythromycin (Erythromycin Base 0.5% Oph Oin 1 Gm Tube) 1 cm EYE-BOTH BID PRN PRN Reason: wounds Heparin Sodium (Porcine) (Heparin Sodium,Porcine 5,000 Unit/Ml Vial) 5,000 unit SUBCUT Q12H [facility] Last Admin: 06/08/23 13:26 Dose: 5,000 unit Documented By: MACIEL Sodium Chloride (Ns) 1,000 mls @ 100 mls/hr IVCONT .Q10H [facility] Last Admin: 06/09/23 06:55 Dose: Not Given Documented By: PATTIE Non-Admin Reason: Physician Held Med Levetiracetam (Keppra) 1,000 mg in 100 mls @ 400 mls/hr IV TID [facility] Last Infusion: 06/09/23 08:47 Dose: Infused Documented By: PATTIE Valproic Acid 500 mg/ Dextrose 55 mls @ 55 mls/hr IV Q8H [facility] Last Infusion: 06/09/23 08:47 Dose: Infused Documented By: PATTIE Ceftriaxone Sodium 2 gm/ (Sodium Chloride) 50 mls @ 100 mls/hr IV Q12H [facility] Last Infusion: 06/09/23 07:06 Dose: Infused Documented By: ETHEL Metronidazole (Flagyl) 500 mg in 100 mls @ 100 mls/hr IV Q8H [facility] Last Infusion: 06/09/23 04:29 Dose: Infused Documented By: ETHEL Lorazepam (Lorazepam 2 Mg/Ml Vial) 0.25 mg IVPUSH BID@0800,1200 [facility] Last Admin: 06/09/23 08:27 Dose: 0.25 mg Documented By: PATTIE Lorazepam (Lorazepam 2 Mg/Ml Vial) 0.5 mg IVPUSH BEDTIME [facility] Last Admin: 06/08/23 21:25 Dose: 0.5 mg Documented By: BELKYS Morphine Sulfate (Morphine Sulfate 2 Mg/Ml Cartridge) 2 mg IVPUSH Q4H PRN; Protocol PRN Reason: increased WOB, resp distress Last Admin: 06/09/23 08:53 Dose: 2 mg Documented By: PATTIE Multi-Ingred Cream/Lotion/Oil/Oint (Artificial Tears Ophth Oint 3.5 Gm Tube) 1 appl EYE-BOTH BEDTIME [facility] Last Admin: 06/08/23 21:28 Dose: Not Given Documented By: BELKYS Non-Admin Reason: Med Not Available Pt Own Medication ( Felbamate 400 Mg Tablet) 800 mg PO TID [facility] Last Admin: 06/09/23 08:29 Dose: Not Given Documented By: PATTIE Non-Admin Reason: NPO Ondansetron HCl (Ondansetron Hcl 4 Mg/2 Ml Vial) 4 mg IVPUSH Q8H PRN PRN Reason: Nausea and Vomiting Sodium Biphosphate/Sodium Phosphate (Sodium Phosphate,[place]-Dibasic 133 Ml Enema) [address] DAILY PRN PRN Reason: Constipation Sodium Chloride (0.9 % Sodium Chloride Flush 3 Ml Syringe) 3 ml IVFLUSH QSHIFT [facility] Last Admin: 06/09/23 08:28 Dose: 3 ml Documented By: PATTIE Labs 06/09/23 06:02 06/09/23 06:02 Labs: Laboratory Results - last 24 hr 06/08/23 06/08/23 06/09/23 13:44 14:35 06:02 MCV 84.6 MCH 28.8 MCHC 34.1 RDW 13.2 Plt Count 199 MPV 9.6 Immature Gran % (Auto) 0.8 H Neut % (Auto) 76.3 H Lymph % (Auto) 8.0 L [place] % (Auto) 14.3 H Eos % (Auto) 0.2 Baso % (Auto) 0.4 Lymph # (Auto) 0.4 L [place] # (Auto) 0.7 Eos # (Auto) 0.0 Baso # (Auto) 0.0 Abs Immat Gran (auto) 0.04 H Absolute Neuts (auto) 3.9 Absolute Nucleated RBC 0.000 Nucleated RBC % (auto) 0.0 Hold Purple Top SEE NOTE Anion Gap 12 15 Estim Creat Clear Calc 142.6 166.9 Estimated GFR > 60 > 60 Random Glucose 93 92 Osmolality 271 L Calcium 8.9 8.4 Magnesium 1.6 TSH 1.82 Stl C. cayetanensis PCR Not Detected Stool Rotavirus A PCR Not Detected Stl Adenov F 40/41 PCR Not Detected Stool Astrovirus (PCR) Not Detected Stool Campylobacter PCR Not Detected Stool Cryptosporidium PCR Not Detected Stl Sh Tox Pr E STEC PCR Not Detected Stool E coli O157 PCR Not applicable Stl Enterotoxigenic E PCR Not Detected Stool EPEC (PCR) Not Detected Stool EAEC (PCR) Not Detected Stl E. histolytica PCR Not Detected Stool Giardia Lamblia PCR Not Detected Stl P. shigelloides PCR Not Detected Stool Salmonella PCR Not Detected Stool Sapovirus (PCR) Not Detected Stl Shigella/EIEC PCR Not Detected St Y.enterocolitica PCR Not Detected Stool Vibrio (PCR) Not Detected Stl Vibrio cholerae PCR Not Detected Stl Norovirus GI/GII PCR Not Detected C. difficile Tox B Gene NEGATIVE Microbiology Microbiology Results: Microbiology 06/08/23 05:06 Blood Culture - Preliminary Blood - Venous No growth after 24 hours. 06/08/23 05:06 Blood Culture - Preliminary Blood - Venous No growth after 24 hours. Assessment and Plan (1) Sepsis: Status: Acute (2) Acute metabolic encephalopathy: Status: Acute (3) Aspiration pneumonia: Status: Acute (4) Seizures: Status: Acute (5) Fever: Status: Acute (6) Acute hyponatremia: Status: Acute (7) Respiratory distress: Status: Acute Plan 57-year-old male with history of hypothyroidism, osteopenia, glaucoma, hyperlipidemia, history of CVA, chronic constipation, anxiety, parkinson's disease, dysphagia, history aspiration pneumonia, epileptic seizure disorder with nikita-gastaut syndrome admitted for suspected aspiration pneumonia with sepsis with acute metabolic encephalopathy and respiratory distress. #Suspected aspiration pneumonia with sepsis -febrile, tachycardic, tachypneic. Lactic acid normal, no end organ damage or hypotension. No severe sepsis/shock -CXR negative. CT chest shows diffuse mild bronchial wall thickening and increased peribronchial attenuation in R lung suggestive of bronchopneumonia- appearance compatible with aspiration pneumonia -Abx changed to ceftriaxone and flagyl (initiated 06/08) -Keep NPO due to mentation and aspiration. CLAIMS DIRECTOR eval pending -Nasal suction prn -tylenol prn fevers -Resume IVF -Follow CBC, cultures #Acute respiratory distress -2/2 to above -no hypoxia -2mg IV morphine prn -suction prn as above -CPT q shift -Recheck CXR for evidence of fluid overload (given 20mg IV lasix x1 overnight) -pt is not a candidate for cpap/bipap given ongoing aspiration -monitor closely #Acute fevers -febrile 101-104.2, persistent despite IV abx. Slight improvement with CT tylenol, IV tylenol, IVF, ketorolac, but remains febrile -Likely 2/2 aspiration pneumonia. Possibly r/t breakthrough seizures, but these are consistent with what he has at the intermediate where he is afebrile -Increase ceftriaxone to 2g BID to cover for meningitis, however does not have meningeal signs at this time (unable to accurately assess for Brudzinski's sign) -Head CT w/o negative for evidence of meningeal swelling -Heparin on hold in case of LP -ID consult for further recs #Acute metabolic encephalopathy -2/2 above -monitor mentation #Acute n/v/d- resolved -GI panel and cdiff pcr pending -ondansetron prn -npo #Moderate hyponatremia- resolved -likely 2/2 GI losses -Urine osm and seum osm pending -Follow lytes #Epileptic seizure d/o with nikita-gastaut syndrome -Change depakote 500mg TID and keppra 1000mg TID to IV -Hold lamotrigine and felbamate due to npo status, resume as mentation improves -ativan prn for breakthrough cluster seizures -Continues with brief cluster seizures -neurology consult #Hypothyroidism -Hold levothyroxine for now -Consider IV if still unable to tolerate PO 2/2 above #HLD -hold statin for now #Anxiety -change katherine clonazepam to IV ativan -hold sertraline DVT prophylaxis- SCP for now, resume heparin if no lp Full code Guardian- Clementine Lopez [phone] Diet- pt is pureed diet, thin liquids, pills in yogurt at intermediate Given patient's ongoing acute metabolic encephalopathy and sepsis due to aspiration pneumonia with associated respiratory distress, the patient will require ongoing inpatient stay for IV antibiotics, Iv narcotics for respiratory distress as well as close monitoring of mental status and vital signs to prevent decompensation into respiratory failure, severe sepsis, or septic shock. he will also be kept NPO to prevent further aspiration and will require advancement of diet once mentation improves. He also requires expert consultation for evaluation of ongoing breakthrough cluster seizures and possible LP Quality Stroke Does the patient have a stroke diagnosis?: No VTE Prior VTE?: No VTE Risk Level:: Medical - moderate - high VTE Device Contraindication: Treatment Not Indicated VTE Drug Contraindication: N/A - Med Ordered
[2023-06-09 12:26] LABS: Osmolality Urine 430 mosm/kg (373-1093)
[2023-06-09] MEDS: Acetaminophen Supp 325 MG SUPP.RECT PR (12:41)
[2023-06-09] MEDS: methylPREDNISolone Sod Succ 40 MG/ML VIAL IVPUSH (12:41)
[2023-06-09 12:52] LABS: Venous Blood Gas Refer to POC result
[2023-06-09 12:53] LABS: VBG Base Excess 6.6 mmol/L; VBG HCO3 30 mmol/L (22-26); VBG pCO2 39 mmHg; VBG pH 7.49 (7.32-7.43); VBG pO2 102 mmHg
[2023-06-09 13:01] LABS: Lactic Acid 0.8 mmol/L (0.5-2.0)
[2023-06-09] MEDS: Piperacillin Sodium/Tazobactam 4.5 GM in 0.9 % Sodium Chloride 100 ML IV (14:17)
[2023-06-09] MEDS: Doxycycline Hyclate 100 MG in 0.9 % Sodium Chloride 250 ML 166.67 MG IV (14:18)
[2023-06-09] MEDS: vancomycin/NS 2,000 MG/500 ML PLAST..BAG 250 MG IV (15:07)
--- NOTE | 2023-06-09 15:18 | MHC.CM.PN ---
Pt being transferred to the ICU.
--- NOTE | 2023-06-09 16:25 | PHA.PROG ---
Admission Date/Time: June 08, 2023 12:59 Indication: SEPSIS Weight in k.6 kg Adjusted body weight in Kg: [place] body weight in Kg: Obesity Dosing Indication % IBW: Serum Creatinine - Last 168 Hours 06/08/23 06/08/23 06/09/23 05:00 14:35 06:02 Creatinine 0.53 0.59 0.55 Estimated CrCl and GFR - Last 168 Hours 06/08/23 06/08/23 06/09/23 05:00 14:35 06:02 Estim Creat Clear Calc 158.7 142.6 166.9 Estimated GFR > 60 > 60 > 60 Vancomycin Loading Dose: 2000 MG Current Vancomycin Dosing Regimen: 100MG Q12H Vancomycin Monitoring using AUC goal of 400 - 600 range with trough as surrogate marker: AUC 554, TROUGH 16.4 Date and Time for next Vancomycin Level to be drawn: RANDOM 06/10 @1300 Pharmacist Comments on Vancomycin Plan: Vancomycin dosing will take advantage of [employer] as a clinical decision support tool that uses Bayesian modeling to calculate individual patient's pharmacokinetic parameters and forecast the patient's drug concentration time course with the target goal AUC 24 range of 400 - 600 mg/L/hr.
--- NOTE | 2023-06-09 16:32 | PM.CCPN ---
Subjective Subjective Date of Service: 06/09/23 Interval History: 57-year-old gentleman with underlying history of Manjinder-Gastaut syndrome seizures, Parkinson's, dysphagia with recurrent aspirations, hypothyroidism admitted on 06/08/2023 with lethargy, vomiting diarrhea, and alteration of mental status. Patient admitted to use telemetry plunkett for aspiration pneumonia and breakthrough seizures. Treated with opioids for respiratory distress with worsening hypoxia, transferred to intensive care unit on 06/09/2023. Intensive care unit with normal blood pressure, normal oximetry on room air, reasonable cough, at baseline neurologic status answering years/no. Critical Care Time (minutes): 45 Physical Exam Vital Signs: Vital Signs: Last Vital Signs Temp 101.5 F H 06/09/23 15:08 Pulse 118 H 06/09/23 15:08 Resp 20 06/09/23 15:08 BP 136/94 H 06/09/23 15:08 Pulse Ox 96 06/09/23 15:08 O2 Del Method Room Air 06/09/23 15:08 O2 Flow Rate 15 06/09/23 05:51 Oxygen Flow Rate 15 06/09/23 02:56 BMI result Body Mass Index 28.3 Const: General: no acute distress and awake Eyes: Sclerae: sclerae normal EOM: EOMs intact bilaterally Neck: Neck: Yes no lymphadenopathy, Yes trachea midline and Yes supple Resp: Effort & Inspection: normal respiratory effort and no respiratory distress Auscultation: crackles ( bibasilar) Cardio: Rate: regular rate Rhythm: regular rhythm Heart sounds: no gallops, no murmurs and no rubs GI: Palpation (GI): Soft to palpation and Other GI palpation findings present ( Nontender) Auscultation: normal bowel sounds Extrem: General: Yes no pedal edema, No clubbing and No cyanosis Objective Data Labs 06/09/23 06:02 06/09/23 06:02 Labs: Laboratory Results - last 24 hr 06/08/23 06/09/23 06/09/23 14:35 06:02 12:08 WBC 5.1 RBC 4.23 L Hgb 12.2 L Hct 35.8 L MCV 84.6 MCH 28.8 MCHC 34.1 RDW 13.2 Plt Count 199 MPV 9.6 Immature Gran % (Auto) 0.8 H Neut % (Auto) 76.3 H Lymph % (Auto) 8.0 L [place] % (Auto) 14.3 H Eos % (Auto) 0.2 Baso % (Auto) 0.4 Lymph # (Auto) 0.4 L [place] # (Auto) 0.7 Eos # (Auto) 0.0 Baso # (Auto) 0.0 Abs Immat Gran (auto) 0.04 H Absolute Neuts (auto) 3.9 Absolute Nucleated RBC 0.000 Nucleated RBC % (auto) 0.0 Hold Purple Top VBG pH VBG pCO2 VBG pO2 VBG HCO3 VBG O2 Saturation VBG Base Excess Sodium 135 Potassium 3.3 D Chloride 96 Carbon Dioxide 27 Anion Gap 15 BUN 4 L Creatinine 0.55 Estim Creat Clear Calc 166.9 Estimated GFR > 60 Random Glucose 92 Lactic Acid Calcium 8.4 Magnesium 1.6 TSH 1.82 Urine Osmolality 430 06/09/23 06/09/23 12:40 12:47 WBC RBC Hgb Hct MCV MCH MCHC RDW Plt Count MPV Immature Gran % (Auto) Neut % (Auto) Lymph % (Auto) [place] % (Auto) Eos % (Auto) Baso % (Auto) Lymph # (Auto) [place] # (Auto) Eos # (Auto) Baso # (Auto) Abs Immat Gran (auto) Absolute Neuts (auto) Absolute Nucleated RBC Nucleated RBC % (auto) Hold Purple Top SEE NOTE VBG pH 7.49 H VBG pCO2 39 VBG pO2 102 VBG HCO3 30 H VBG O2 Saturation 100.0 VBG Base Excess 6.6 Sodium Potassium Chloride Carbon Dioxide Anion Gap BUN Creatinine Estim Creat Clear Calc Estimated GFR Random Glucose Lactic Acid 0.8 Calcium Magnesium TSH Urine Osmolality Microbiology Microbiology Results: Microbiology 06/08/23 05:06 Blood - Venous Blood Culture - Preliminary No growth after 24 hours. 06/08/23 05:06 Blood - Venous Blood Culture - Preliminary No growth after 24 hours. Progress Note: A&P Assessment and plan (1) Recurrent aspiration pneumonia: Status: Acute (2) Seizures: Status: Acute (3) Manjinder-Gastaut syndrome, intractable, with status epilepticus: Status: Acute (4) Parkinson disease: Status: Acute Plan Assessment: 57-year-old gentleman with underlying [place]-Gastaut syndrome seizures and recurrent pulmonary aspiration admitted with breakthrough seizures and aspiration Plan: Neuro: Manjinder-Gastaut syndrome with breakthrough seizures. Continue on valproate and Keppra. Neurology evaluation is pending. Cardiac: No acute issues. Pulmonary: Recurrent pulmonary aspiration with transit and hypoxia, now on room air. Continue chest physiotherapy and pulmonary toilet. Renal: No acute issues. Endo: No acute issues. GI: No acute issues. ID: Empirically covered for aspiration pneumonia. Heme/Onc: No acute issues. Psych: No acute issues. Miscellaneous: No acute issues. Prophylaxis: Heparin Diet: pending swallow evaluation Critical care time spent: 45 minutes Quality Stroke Does the patient have a stroke diagnosis?: No VTE Prior VTE?: No VTE Risk Level:: Medical - moderate - high VTE Device Contraindication: Treatment Not Indicated VTE Drug Contraindication: N/A - Med Ordered
[2023-06-09] MEDS: levoFLOXacin/D5W 750 MG/150 ML PIGGYBACK 100 MG IV (17:21)
--- NOTE | 2023-06-09 17:41 | PC.NURSE ---
Assumed care at 0700- Pt. RR 25-35, abdominal breathing and audibly gurgling- Pt. not tolerant of supplemental O2, Oxymask 15L placed on chest below pt.s face- O2 sats 92-100%. LS wheezy and rhonchorous, pt. with moist, congestive, non-productive cough. Morphine PRN ordered for WOB and administered per MD- see EMAR. Patient moaning spontaneously and with stimuli- HR 90s-100s. Rectal temperature 100.8. 1000- Pt. gurgling increased, WOB increased, RR 30s. MD notified, RT called to bedside. Attempting to suction pt. with RT- pt unable to tolerate suctioning, becoming combative. CPT performed by RT. 1200- Rectal temp 103.8- MD notified, rectal tylenol administered per EMAR. MD at bedside- solu-medrol ordered and administered per EMAR. CXR ordered- see report. 1400- Rectal temp 102.2- MD aware. Multiple additional IV Abx ordered and administered- see EMAR. 1600- ICU Tx orders placed- insurance agents supervisor notified. Pt. transported to ICU on monitor, care assumed in ICU by this RN. Patient HR 120s-130s, RR 20s-30s, O2 86-92% on RA. O2 goal >88% per MD. Pt. NT suctioned by for moderate amount of yellow, blood tonged sputum- pt. O2 sats briefly down to 50s, then back to >88%- MD aware. Pt. Currently resting in bed, answering Y/N to questions. RR 28, 90% on RA, HR 138, MAPs >65. Hovermat in place, SCDs applied, Q2 repositioning performed.
--- NOTE | 2023-06-09 20:47 | W.PM.IDCN ---
History of Present Illness Data of Consult Service Date: 06/09/23 Requesting physician: Cristela Gu Primary Care Provider: Unknown Physician HPI Reason for consult: sepsis He presents with lethargy and weakness. He has temperature to 104 and tachycardia to 110. He has some seizure activity ,but has some chronic seizures [facility] He had diarrhea per prior attendant with vomiting, He has Parkinsons,CVA,seizure disorder. He has had prior aspiration pneumonia. Review of Systems Review of Systems: Yes Unobtainable due to mental condition PMFSH Past Medical History Medical History Fever Epileptic seizure Depression Generalized anxiety disorder Ganglion cyst Aspiration pneumonia Parkinson disease Dysphagia Anxiety Constipation TIA (transient ischemic attack) Hyperlipidemia Glaucoma Hyperopia of left eye Proptosis Aphakia, both eyes Osteopenia Hypothyroidism [place]-Gastaut syndrome, intractable, with status epilepticus Family History Family history: reviewed and not pertinent Social History Social History Household Members: Other Household Members Other:: other residents Housing: Other Housing Other:: [facility]iary Do you presently have visiting nurse or other home services: Yes Unable to assess alcohol history related to: Unknown Patient Tobacco Use Status: Never used Tobacco Use of substances other than those prescribed or required for medical reasons: No Currently Displaying Signs/Symptoms of Drug Intoxication Withdrawal: No [facility] Practices: unknown Advance Directives: No Advance Directives Information Provided: Yes Advance Directives on File: No Do you have thoughts of harming others: None Do you have a plan to hurt others: No Plan Recently lost weight without trying: No Nutrition Risks: On aspiration precautions service: No Meds Allergies Allergy/AdvReac Type Severity Reaction Status Date / Time erythromycin base Allergy Unknown HIVES Verified 06/08/23 04:18 [ERYTHROMYCIN BASE] gentamicin [GENTAMICIN] Allergy Unknown UNKNOWN Verified 06/08/23 04:18 Macrolide Antibiotics Allergy Unknown UNKNOWN Verified 06/08/23 04:18 [MACROLIDE ANTIBIOTICS] KETOLIDES Allergy Unknown UNKNOWN Uncoded 03/17/20 19:46 Active Medications: Current Medications Acetaminophen (Acetaminophen Supp 650 Mg Supp.Rect) 650 mg SD Q6H PRN PRN Reason: Pain, Mild, fever Last Admin: 06/09/23 11:45 Dose: 650 mg Erythromycin (Erythromycin Base 0.5% Oph Oin 1 Gm Tube) 1 cm EYE-BOTH BID PRN PRN Reason: wounds Heparin Sodium (Porcine) (Heparin Sodium,Porcine 5,000 Unit/Ml Vial) 5,000 unit SUBCUT Q12H [facility] Last Admin: 06/08/23 13:26 Dose: 5,000 unit Levetiracetam (Keppra) 1,000 mg in 100 mls @ 400 mls/hr IV TID [facility] Last Infusion: 06/09/23 20:46 Dose: Infused Valproic Acid 500 mg/ Dextrose 55 mls @ 55 mls/hr IV Q8H [facility] Last Infusion: 06/09/23 17:09 Dose: Infused Levofloxacin (Levaquin) 750 mg in 150 mls @ 100 mls/hr IV Q24H [facility] Last Infusion: 06/09/23 19:12 Dose: Infused Multi-Ingred Cream/Lotion/Oil/Oint (Artificial Tears Ophth Oint 3.5 Gm Tube) 1 appl EYE-BOTH BEDTIME [facility] Last Admin: 06/08/23 21:28 Dose: Not Given Ondansetron HCl (Ondansetron Hcl 4 Mg/2 Ml Vial) 4 mg IVPUSH Q8H PRN PRN Reason: Nausea and Vomiting Sodium Biphosphate/Sodium Phosphate (Sodium Phosphate,[place]-Dibasic 133 Ml Enema) 118 ml SD DAILY PRN PRN Reason: Constipation Sodium Chloride (0.9 % Sodium Chloride Flush 3 Ml Syringe) 3 ml IVFLUSH QSHIFT [facility] Last Admin: 06/09/23 16:38 Dose: 3 ml Home Medications Medication Instructions Recorded Confirmed Last Taken Type acetaminophen 325 mg tablet 650 mg PO Q6H PRN Fever Or Pain 04/01/23 06/08/23 Unknown History aspirin 81 mg tablet,delayed 81 mg PO DAILY 04/01/23 06/08/23 Unknown History release bacitracin 500 unit/gram eye 1 appl ophthalmic (eye) BID PRN 04/01/23 06/08/23 Unknown History ointment wounds cholecalciferol (vitamin D3) 1,250 1,250 mcg PO WE 04/01/23 06/08/23 Unknown History mcg (50,000 unit) capsule clonazepam 0.5 mg tablet 0.25 mg PO BID@0800,1200 04/01/23 06/08/23 Unknown History clonazepam 0.5 mg tablet 0.5 mg PO BEDTIME 04/01/23 06/08/23 Unknown History divalproex 125 mg capsule,delayed 500 mg PO TID 04/01/23 06/08/23 Unknown History release sprinkle (Depakote Sprinkles) docusate sodium 100 mg capsule 100 mg PO BID@0800,2000 04/01/23 06/08/23 Unknown History felbamate 400 mg tablet 800 mg PO TID 04/01/23 06/08/23 Unknown History levetiracetam 500 mg tablet 1,000 mg PO TID 04/01/23 06/08/23 Unknown History levothyroxine 88 mcg tablet 88 mcg PO DAILY 04/01/23 06/08/23 Unknown History lorazepam 1 mg tablet 1 mg PO Q30M PRN Seizures 04/01/23 06/08/23 Unknown History multivitamin with folic acid 400 1 tab PO QAM 04/01/23 06/08/23 Unknown History mcg tablet (Thera) sertraline 50 mg tablet 50 mg PO BEDTIME 04/01/23 06/08/23 Unknown History simvastatin 40 mg tablet 40 mg PO BEDTIME 04/01/23 06/08/23 Unknown History zinc oxide 13 % topical cream 1 appl topical TID PRN Rash 04/01/23 06/08/23 Unknown History (Desitin Daily Defense) bisacodyl 10 mg rectal suppository 10 mg SD DAILY PRN Constipation 06/08/23 06/08/23 Unknown History (OneLAX Bisacodyl) guaifenesin 100 mg/5 mL oral liquid 200 mg PO Q6H PRN Cough 06/08/23 06/08/23 Unknown History lamotrigine 25 mg tablet 12.5 mg PO QAM 06/08/23 06/08/23 Unknown History magnesium hydroxide 400 mg/5 mL 30 ml PO Q OTHER DAY PRN 06/08/23 06/08/23 Unknown History oral suspension (Milk of Magnesia) Constipation polyethylene glycol 3350 17 17 g PO QAM 06/08/23 06/08/23 Unknown History gram/dose oral powder sodium phosphates 19 gram-7 118 ml SD DIRECTED PRN 06/08/23 06/08/23 Unknown History gram/118 mL enema (Enema Constipation Disposable) white petrolatum-mineral oil 57.3 0.25 inch ophthalmic (eye) BEDTIME 06/08/23 06/08/23 Unknown History %-42.5 % eye ointment (Refresh P.M.) Physical Exam Vital Signs: Vital Signs: Last Vital Signs Temp 100.2 F 06/09/23 20:00 Pulse 103 H 06/09/23 20:00 Resp 13 06/09/23 20:00 BP 96/55 L 06/09/23 20:00 Pulse Ox 90 L 06/09/23 20:00 O2 Del Method Oxymask 06/09/23 20:00 O2 Flow Rate 6 06/09/23 20:00 Oxygen Flow Rate 15 06/09/23 02:56 BMI result Body Mass Index 28.3 Const: General: cooperative HEENT: Head: Yes normal to inspection Face and sinus: Yes normal facial exam Mouth: Normal oral and palatal mucosa present Teeth and gingiva: dentition normal Eyes: General: appearance normal, both eyes and all related structures Pupils: Equal, round and reactive pupils present Resp: Effort & Inspection: normal respiratory effort Cardio: Rate: regular rate Rhythm: regular rhythm GI: Palpation (GI): Soft to palpation and nontender : General: Yes no CVA tenderness Back/Spine/Pelvis: Back: no CVA tenderness Skin: General skin exam: no rashes or lesions noted Neuro: General: moves all extremities Cranial nerves: Yes Equal, round and reactive pupils present Extrem: General: Yes normal to inspection Psych: Other: stiff neck,?chronicity-difficult to tell if meningismus contracted legs Results Labs 06/09/23 06:02 06/09/23 06:02 Labs: Short CBC 06/09/23 Range/Units 06:02 WBC 5.1 (4.8-10.8) X10*3/uL Hgb 12.2 L (14.0-18.0) g/dl Hct 35.8 L (42.0-52.0) % Plt Count 199 (160-400) X10*3/uL BMP 06/09/23 06:02 Sodium 135 Potassium 3.3 D Chloride 96 Carbon Dioxide 27 BUN 4 L Creatinine 0.55 Calcium 8.4 Microbiology Microbiology Results: Microbiology 06/08/23 05:06 Blood - Venous Blood Culture - Preliminary No growth after 24 hours. 06/08/23 05:06 Blood - Venous Blood Culture - Preliminary No growth after 24 hours. Assessment and Plan (1) Parkinson disease: Status: Acute (2) [place]-Gastaut syndrome, intractable, with status epilepticus: Status: Acute (3) Recurrent aspiration pneumonia: Status: Acute (4) Respiratory distress: Status: Acute He has possible meningitis although difficult to tell. He has possible early aspiration pneumonia He has possible viral meningitis ? possible herpes simplex (5) Seizures: Status: Acute Plan Would continue piperacillin/tazobactam, Vancomycin cover lung/urine and possible bacteremia Would check for meningitis with concern over fever and not necessarily aspiration pneumonia since not respiratory failure at this time. He had received Levaquin in ER. Check respiratory panel PCR. Would recommend LP check meningitis/encephalitis PCR as well as cell count and diff,protein,glucose.
[2023-06-10] VITALS (15 sets, daily range): BP systolic 97–134; BP diastolic 48–81; PULSE 82–102; RESP 15–28; TEMP 36.6–37.7; O2SAT 88–97; BMI 28.3
[2023-06-10] MEDS: Heparin Sodium,Porcine 5,000 UNIT/ML VIAL 5000 UNIT SUBCUT ×2 (00:10→12:58)
[2023-06-10 05:25] LABS: VBG Base Excess 6.1 mmol/L; VBG HCO3 31 mmol/L (22-26); VBG pCO2 47 mmHg; VBG pH 7.42 (7.32-7.43); VBG pO2 40 mmHg
[2023-06-10 05:30] LABS: Venous Blood Gas Refer to POC result
[2023-06-10 05:32] LABS: MANUAL DIFF FLAG NO
[2023-06-10 05:34] LABS: Basophils Percent Auto 0.2 % (0-2); Eosinophils Percent Auto 0.2 % (0-4); Hematocrit 35.5 % (42.0-52.0); Hemoglobin 12.1 g/dl (14.0-18.0); Imm Gran Abs Auto 0.02 X10*3/uL (0.00-0.03); Imm Gran Pct Auto 0.3 % (0.0-0.4); Lymphocytes Absolute Auto 0.9 X10*3/uL (1.2-4.9); Mean Corpuscular HGB Conc 34.1 g/dl (31.0-36.0); Mean Corpuscular Hemoglobin 29.4 pg (27.0-33.0); Mean Corpuscular Volume 86.2 fL (80.0-98.0); Mean Platelet Volume 9.3 fL (9.4-12.4); Monocytes Percent Auto 16.6 % (2-11); Neutrophils Absolute Auto 4.1 x10*3/uL (2.0-8.3); Neutrophils Percent Auto 67.7 % (45-73); Platelet Count 201 X10*3/uL (160-400); Red Blood Count 4.12 X10*6/uL (4.60-5.80); Red Cell Distribution Width 13.1 % (11.0-16.0)
[2023-06-10] MEDS: LORazepam 2 MG/ML VIAL 0.25 MG IVPUSH (05:51)
[2023-06-10 05:52] LABS: Alanine Aminotransferase 22 U/L (0-40); Albumin Level 3.3 g/dL (3.5-5.0); Alkaline Phosphatase 31 U/L (39-117); Anion Gap 16 (12-20); Aspartate Amino Transferase 57 U/L (5-37); Bilirubin Total 0.2 mg/dL (0.0-1.0); Blood Urea Nitrogen 7 mg/dL (9-16); Carbon Dioxide 28 mmol/L (22-29); Chloride 98 mmol/L (96-108); Estimated Glomerular Filt Rate > 60; Glucose Random 82 mg/dL (60-115); Magnesium 1.7 mg/dL (1.6-2.6); Phosphorus 2.5 mg/dL (2.7-4.5); Potassium 3.5 mmol/L (3.3-5.1); Sodium 138 mmol/L (135-145); Total Protein 6.1 g/dL (6.5-8.0)
[2023-06-10] MEDS: LORazepam 2 MG/ML VIAL 0.5 MG IVPUSH (06:02)
[2023-06-10] MEDS: Potassium Phosphate/NS 15 MMOL/250 ML PLAST..BAG 62.5 MMOL IV (06:25)
[2023-06-10] MEDS: Valproic Acid (as Sodium Salt) 500 MG in Dextrose 5 % 50 ML 55 MG IV ×2 (06:33→14:27)
[2023-06-10] MEDS: levETIRAcetam in NaCl (iso-os) 1,000 MG/100 ML PIGGYBACK 400 MG IV ×2 (09:46→14:12)
--- NOTE | 2023-06-10 10:45 | P.PNCC_ITS ---
Subjective Subjective Date of Service: 06/10/23 Interval History: 57-year-old gentleman with underlying history of Manjinder-Gastaut syndrome seizures, Parkinson's, dysphagia with recurrent aspirations, hypothyroidism admitted on 06/08/2023 with lethargy, vomiting diarrhea, and alteration of mental status. Patient admitted to use telemetry plunkett for aspiration pneumonia and breakthrough seizures. Treated with opioids for respiratory distress with worsening hypoxia, transferred to intensive care unit on 06/09/2023. Intensive care unit with normal blood pressure, normal oximetry on room air, reasonable cough, at baseline neurologic status answering years/no. No events overnight. Remains on room air. Critical Care Time (minutes): 0 Physical Exam 2 Vital Signs: Vital Signs: Last Vital Signs Temp 99.1 F 06/10/23 09:00 Pulse 82 06/10/23 09:00 Resp 17 06/10/23 09:00 BP 113/59 L 06/10/23 09:00 Pulse Ox 93 06/10/23 09:00 O2 Del Method Room Air 06/10/23 09:00 O2 Flow Rate 6 06/10/23 08:00 Oxygen Flow Rate 15 06/09/23 02:56 BMI result Body Mass Index 28.3 Const: General: no acute distress and awake Eyes: Sclerae: sclerae normal EOM: EOMs intact bilaterally Neck: Neck: Yes no lymphadenopathy, Yes trachea midline and Yes supple Resp: Effort & Inspection: normal respiratory effort and no respiratory distress Auscultation: clear to auscultation bilaterally Cardio: Rate: regular rate Rhythm: regular rhythm Heart sounds: no gallops, no murmurs and no rubs GI: Palpation (GI): Soft to palpation and Other GI palpation findings present ( Nontender) Auscultation: normal bowel sounds Extrem: General: Yes no pedal edema, No clubbing and No cyanosis Objective Data Labs 06/10/23 05:15 06/10/23 05:15 Labs: Laboratory Results - last 24 hr 06/09/23 06/09/23 06/09/23 12:08 12:40 12:47 WBC RBC Hgb Hct MCV MCH MCHC RDW Plt Count MPV Immature Gran % (Auto) Neut % (Auto) Lymph % (Auto) [place] % (Auto) Eos % (Auto) Baso % (Auto) Lymph # (Auto) [place] # (Auto) Eos # (Auto) Baso # (Auto) Abs Immat Gran (auto) Absolute Neuts (auto) Absolute Nucleated RBC Nucleated RBC % (auto) Hold Purple Top SEE NOTE VBG pH 7.49 H VBG pCO2 39 VBG pO2 102 VBG HCO3 30 H VBG O2 Saturation 100.0 VBG Base Excess 6.6 Sodium Potassium Chloride Carbon Dioxide Anion Gap BUN Creatinine Estim Creat Clear Calc Estimated GFR Random Glucose Lactic Acid 0.8 Calcium Phosphorus Magnesium Total Bilirubin AST ALT Alkaline Phosphatase Total Protein Albumin Urine Osmolality 430 06/10/23 06/10/23 05:15 05:18 WBC 6.0 RBC 4.12 L Hgb 12.1 L Hct 35.5 L MCV 86.2 MCH 29.4 MCHC 34.1 RDW 13.1 Plt Count 201 MPV 9.3 L Immature Gran % (Auto) 0.3 Neut % (Auto) 67.7 Lymph % (Auto) 15.0 L [place] % (Auto) 16.6 H Eos % (Auto) 0.2 Baso % (Auto) 0.2 Lymph # (Auto) 0.9 L [place] # (Auto) 1.0 Eos # (Auto) 0.0 Baso # (Auto) 0.0 Abs Immat Gran (auto) 0.02 Absolute Neuts (auto) 4.1 Absolute Nucleated RBC 0.000 Nucleated RBC % (auto) 0.0 Hold Purple Top VBG pH 7.42 VBG pCO2 47 VBG pO2 40 VBG HCO3 31 H VBG O2 Saturation 65.0 VBG Base Excess 6.1 Sodium 138 Potassium 3.5 Chloride 98 Carbon Dioxide 28 Anion Gap 16 BUN 7 L Creatinine 0.62 Estim Creat Clear Calc 148.0 Estimated GFR > 60 Random Glucose 82 Lactic Acid Calcium 9.0 D Phosphorus 2.5 L Magnesium 1.7 Total Bilirubin 0.2 AST 57 H ALT 22 Alkaline Phosphatase 31 L Total Protein 6.1 L Albumin 3.3 L Urine Osmolality Microbiology Microbiology Results: Microbiology 06/08/23 05:06 Blood - Venous Blood Culture - Preliminary No growth after 48 hours. 06/08/23 05:06 Blood - Venous Blood Culture - Preliminary No growth after 48 hours. Progress Note: A&P Assessment and plan (1) Parkinson disease: Status: Acute (2) Manjinder-Gastaut syndrome, intractable, with status epilepticus: Status: Acute (3) Recurrent aspiration pneumonia: Status: Acute (4) Seizures: Status: Acute Plan Assessment: 57-year-old gentleman with underlying Manjinder-Gastaut syndrome seizures and recurrent pulmonary aspiration admitted with breakthrough seizures and aspiration Plan: Neuro: [place]-Gastaut syndrome with breakthrough seizures. Continue on valproate and Keppra. Neurology evaluation is pending. Cardiac: No acute issues. Pulmonary: Recurrent pulmonary aspiration with transit and hypoxia, now on room air. Continue chest physiotherapy and pulmonary toilet. Avoid opioids. Renal: No acute issues. Endo: No acute issues. GI: No acute issues. ID: Empirically covered for aspiration pneumonia. Heme/Onc: No acute issues. Psych: No acute issues. Miscellaneous: No acute issues. Prophylaxis: Heparin Diet: pending swallow evaluation Quality Stroke Does the patient have a stroke diagnosis?: No VTE Prior VTE?: No VTE Risk Level:: Medical - moderate - high VTE Device Contraindication: Treatment Not Indicated VTE Drug Contraindication: N/A - Med Ordered
--- NOTE | 2023-06-10 11:16 | P.CNNE_ITS ---
History of Present Illness Data of Consult Service Date: 06/10/23 Primary Care Provider: Unknown Physician HPI Reason for consult: Epilepsy 57 years old man, a according to records, with [place]-Gastaut syndrome. He was admitted for treatment of infection and was noted to have seizures here and there. He was unable to provide any history. Review of Systems 2 Review of Systems: Could not be done with [facility] Past Medical History Medical History Fever Epileptic seizure Depression Generalized anxiety disorder Ganglion cyst Aspiration pneumonia Parkinson disease Dysphagia Anxiety Constipation TIA (transient ischemic attack) Hyperlipidemia Glaucoma Hyperopia of left eye Proptosis Aphakia, both eyes Osteopenia Hypothyroidism Manjinder-Gastaut syndrome, intractable, with status epilepticus Family History Family history: reviewed and not pertinent Social History Social History Household Members: Other Household Members Other:: other residents Housing: Other Housing Other:: skilled nursing Do you presently have visiting nurse or other home services: Yes Unable to assess alcohol history related to: Unknown Patient Tobacco Use Status: Never used Tobacco Use of substances other than those prescribed or required for medical reasons: No Currently Displaying Signs/Symptoms of Drug Intoxication Withdrawal: No [facility] Practices: unknown Advance Directives: No Advance Directives Information Provided: Yes Advance Directives on File: No Do you have thoughts of harming others: None Do you have a plan to hurt others: No Plan Recently lost weight without trying: No Nutrition Risks: On aspiration precautions service: No Meds Allergies Allergy/AdvReac Type Severity Reaction Status Date / Time erythromycin base Allergy Unknown HIVES Verified 06/08/23 04:18 [ERYTHROMYCIN BASE] gentamicin [GENTAMICIN] Allergy Unknown UNKNOWN Verified 06/08/23 04:18 Macrolide Antibiotics Allergy Unknown UNKNOWN Verified 06/08/23 04:18 [MACROLIDE ANTIBIOTICS] KETOLIDES Allergy Unknown UNKNOWN Uncoded 03/17/20 19:46 Active Medications: Current Medications Acetaminophen (Acetaminophen Supp 650 Mg Supp.Rect) 650 mg RI Q6H PRN PRN Reason: Pain, Mild, fever Last Admin: 06/09/23 11:45 Dose: 650 mg Erythromycin (Erythromycin Base 0.5% Oph Oin 1 Gm Tube) 1 cm EYE-BOTH BID PRN PRN Reason: wounds Heparin Sodium (Porcine) (Heparin Sodium,Porcine 5,000 Unit/Ml Vial) 5,000 unit SUBCUT Q12H [facility] Last Admin: 06/10/23 00:10 Dose: 5,000 unit Levetiracetam (Keppra) 1,000 mg in 100 mls @ 400 mls/hr IV TID [facility] Last Infusion: 06/10/23 10:14 Dose: Infused Valproic Acid 500 mg/ Dextrose 55 mls @ 55 mls/hr IV Q8H [facility] Last Infusion: 06/10/23 07:41 Dose: Infused Levofloxacin (Levaquin) 750 mg in 150 mls @ 100 mls/hr IV Q24H [facility] Last Infusion: 06/09/23 19:12 Dose: Infused Multi-Ingred Cream/Lotion/Oil/Oint (Artificial Tears Ophth Oint 3.5 Gm Tube) 1 appl EYE-BOTH BEDTIME [facility] Last Admin: 06/09/23 23:02 Dose: Not Given Ondansetron HCl (Ondansetron Hcl 4 Mg/2 Ml Vial) 4 mg IVPUSH Q8H PRN PRN Reason: Nausea and Vomiting Sodium Biphosphate/Sodium Phosphate (Sodium Phosphate,[place]-Dibasic 133 Ml Enema) 118 ml RI DAILY PRN PRN Reason: Constipation Sodium Chloride (0.9 % Sodium Chloride Flush 3 Ml Syringe) 3 ml IVFLUSH QSHIFT [facility] Last Admin: 06/10/23 07:42 Dose: Not Given Home Medications Medication Instructions Recorded Confirmed Last Taken Type acetaminophen 325 mg tablet 650 mg PO Q6H PRN Fever Or Pain 04/01/23 06/08/23 Unknown History aspirin 81 mg tablet,delayed 81 mg PO DAILY 04/01/23 06/08/23 Unknown History release bacitracin 500 unit/gram eye 1 appl ophthalmic (eye) BID PRN 04/01/23 06/08/23 Unknown History ointment wounds cholecalciferol (vitamin D3) 1,250 1,250 mcg PO WE 04/01/23 06/08/23 Unknown History mcg (50,000 unit) capsule clonazepam 0.5 mg tablet 0.25 mg PO BID@0800,1200 04/01/23 06/08/23 Unknown History clonazepam 0.5 mg tablet 0.5 mg PO BEDTIME 04/01/23 06/08/23 Unknown History divalproex 125 mg capsule,delayed 500 mg PO TID 04/01/23 06/08/23 Unknown History release sprinkle (Depakote Sprinkles) docusate sodium 100 mg capsule 100 mg PO BID@0800,2000 04/01/23 06/08/23 Unknown History felbamate 400 mg tablet 800 mg PO TID 04/01/23 06/08/23 Unknown History levetiracetam 500 mg tablet 1,000 mg PO TID 04/01/23 06/08/23 Unknown History levothyroxine 88 mcg tablet 88 mcg PO DAILY 04/01/23 06/08/23 Unknown History lorazepam 1 mg tablet 1 mg PO Q30M PRN Seizures 04/01/23 06/08/23 Unknown History multivitamin with folic acid 400 1 tab PO QAM 04/01/23 06/08/23 Unknown History mcg tablet (Thera) sertraline 50 mg tablet 50 mg PO BEDTIME 04/01/23 06/08/23 Unknown History simvastatin 40 mg tablet 40 mg PO BEDTIME 04/01/23 06/08/23 Unknown History zinc oxide 13 % topical cream 1 appl topical TID PRN Rash 04/01/23 06/08/23 Unknown History (Desitin Daily Defense) bisacodyl 10 mg rectal suppository 10 mg RI DAILY PRN Constipation 06/08/23 06/08/23 Unknown History (OneLAX Bisacodyl) guaifenesin 100 mg/5 mL oral liquid 200 mg PO Q6H PRN Cough 06/08/23 06/08/23 Unknown History lamotrigine 25 mg tablet 12.5 mg PO QAM 06/08/23 06/08/23 Unknown History magnesium hydroxide 400 mg/5 mL 30 ml PO Q OTHER DAY PRN 06/08/23 06/08/23 Unknown History oral suspension (Milk of Magnesia) Constipation polyethylene glycol 3350 17 17 g PO QAM 06/08/23 06/08/23 Unknown History gram/dose oral powder sodium phosphates 19 gram-7 118 ml RI DIRECTED PRN 06/08/23 06/08/23 Unknown History gram/118 mL enema (Enema Constipation Disposable) white petrolatum-mineral oil 57.3 0.25 inch ophthalmic (eye) BEDTIME 06/08/23 06/08/23 Unknown History %-42.5 % eye ointment (Refresh P.M.) Physical Exam 2 Vital Signs: Vital Signs: Last Vital Signs Temp 99.1 F 06/10/23 09:00 Pulse 83 06/10/23 10:00 Resp 27 H 06/10/23 10:00 BP 109/61 06/10/23 10:00 Pulse Ox 88 L 06/10/23 10:00 O2 Del Method Room Air 06/10/23 10:00 O2 Flow Rate 6 06/10/23 08:00 Oxygen Flow Rate 15 06/09/23 02:56 BMI result Body Mass Index 28.3 Neuro: Other: Semi prone with neck flexed not responsive to verbal stable sometime he would moan. Eyes were somewhat deviated to left side. Face was pendulous. He was not following commands of examination. Exam was limited. No obvious seizure- like activity or jerking noted. Results Labs 06/10/23 05:15 06/10/23 05:15 Labs: Short CBC 06/10/23 Range/Units 05:15 WBC 6.0 (4.8-10.8) X10*3/uL Hgb 12.1 L (14.0-18.0) g/dl Hct 35.5 L (42.0-52.0) % Plt Count 201 (160-400) X10*3/uL BMP 06/10/23 05:15 Sodium 138 Potassium 3.5 Chloride 98 Carbon Dioxide 28 BUN 7 L Creatinine 0.62 Calcium 9.0 D Liver Function 06/10/23 Range/Units 05:15 Total Bilirubin 0.2 (0.0-1.0) mg/dL AST 57 H (5-37) U/L ALT 22 (0-40) U/L Alkaline Phosphatase 31 L (39-117) U/L Albumin 3.3 L (3.5-5.0) g/dL head CT revealed moderate cerebellar atrophy Microbiology Microbiology Results: Microbiology 06/08/23 05:06 Blood - Venous Blood Culture - Preliminary No growth after 48 hours. 06/08/23 05:06 Blood - Venous Blood Culture - Preliminary No growth after 48 hours. Assessment and Plan (1) [place]-Gastaut syndrome, intractable, with status epilepticus: Status: Acute Seizure control and this condition is almost never complete. Breakthrough seizures can happen due to illness or sickness from other conditions. My recommendation is to continue baseline medications and treat other medical conditions and discharged him back to his place of residence Procedures Date of Service Date of Service: 06/10/23
--- NOTE | 2023-06-10 11:25 | MHC.CM.PN ---
EMR REVIEWED, PT STEP DOWN FROM ICU, NO PLAN FOR DC TODAY, ANTIC RETURN TO ONCE MEDICALLY CLEARED, CM WILL CONT TO FOLLOW DC NEEDS.
--- NOTE | 2023-06-10 12:05 | MHC.SL.SWA ---
Speech Pathologist Impression: Risk of aspiration, oropharyngeal phase dysphagia Risk of Aspiration Due to: History of Pneumonia Reduced Cognition Dysphasia Diet Status: Start on NDD1/HTL via half-teaspoon Liquid Consistency and Strategies for Safe Swallow: Liquid Intake Recommendation: Honey Thick Liquid Intake Strategies: Small Sips No Straws Liquids by Teaspoon Only Solid Food Consistency: Dietary Recommendations: Pureed (NDD1) Additional Modifications to Solid Foods: Recommend START on PUREED (NDD1) diet and HONEY THICK liquids via TEASPOON ONLY, pills CRUSHED in PUREE, 1:1 feeding, close monitoring. Pt to be fed carefully with a slow pace while minimizing distractions. Give pt half-teaspoon amounts at a time, oral cavity check periodically for clearance, allow pt ample time to swallow. Ensure upright position at 90 degree angle during feeding and for at least 45 minutes afterwards. Maintain frequent oral care for hygiene. Hold tray if pt is lethargic, not engaged in meal, or displays any overt s/s of aspiration. M[employer]SE KILN OPERATOR will continue to follow during pt's inpatient stay. Oral Medication Intake: Crushed with Puree Please contact the pharmacy regarding appropriate crushable or liquid drug formulations that are available whenever modified delivery is recommended. Compensatory Strategies and Precautions to be Taken for Safe Swallow: Sitting Upright (90 deg) No Straw Liquids from Spoon Small Bites and Sips Rate of Ingestion Change Oral Check Supervision While Eating and Drinking for Safe Swallow: Total Assistance (1:1) Swallowing Recommended Treatments: Compens. Strategy Educat. Recommendation for Speech: Inpatient Speech Therapy Speech Therapy through Rehab Facility Warehouse Insulation Worker Clinican/Clinical Fellow: No Supervisory Statement: I have reviewed and agree with the student/clinical fellow's documentation: N/A Speech Language Pathologist: Beatriz Quiroz M.A., [facility]-[employer] KILN OPERATOR
[2023-06-10 13:53] LABS: CMV DNA PCR Qn Source BLOOD; CMV DNA Qn PCR NOT DETECTED Log IU/mL (NOT DETECTED); CMV DNA Qn Real Time PCR NOT DETECTED (NOT DETECTED)
[2023-06-10] MEDS: 0.9 % Sodium Chloride Flush 3 ML SYRINGE IVFLUSH (14:29)
[2023-06-10] MEDS: levoFLOXacin/D5W 750 MG/150 ML PIGGYBACK 100 MG IV (15:35)
--- NOTE | 2023-06-10 15:54 | MHC.CLN ---
NUTRITION DIET=PUREE WITH HONEY THICK LIQUIDS. HAD BEEN NPO X 2 DAYS. DX ASPIRATION PNEUMONIA WITH SEPSIS. KIM=9. NO PRESSURE INJURIES/SKIN INTACT. FOLLOW WEEKLY FOR INTAKE AND SKIN INTEGRITY.
[2023-06-10 16:12] LABS: MRSA Nasal PCR NEGATIVE (Negative); SA Nasal PCR NEGATIVE (Negative)
--- NOTE | 2023-06-10 16:15 | PM.EVENT ---
Event Note Date of Service: 06/10/23 Event Note: Pt transferred to med/tele from ICU. He is responding y/n to simple questions. Denies pain, sob, chest pain. He continues with grunting respirations. No gurgling or increased WOB, no distress. Seen and evaluated by PATIENT SUPPORT SPECIALIST. HIgh risk for recurrent aspiration. Pureed diet with honey thick liquids. 1:1 feeds. Aspiration precautions. See note for additional specific recommendations. Time Spent With Patient Time: Total time managing care of this patient today ____ minutes.
[2023-06-10] MEDS: 0.9 % Sodium Chloride 1,000 ML 80 ML IVCONT (16:46)
[2023-06-10 17:12] LABS: Adenovirus PCR Not Detected (Not Detect.); Bordetella parapertussis PCR Not Detected (Not Detect.); Bordetella pertussis PCR Not Detected (Not Detect.); Chlamydia pneumoniae PCR Not Detected (Not Detect.); Coronavirus 229E PCR Not Detected (Not Detect.); Coronavirus HKU1 PCR Not Detected (Not Detect.); Coronavirus NL63 PCR Not Detected (Not Detect.); Coronavirus OC43 PCR Not Detected (Not Detect.); Human metapneumovirus PCR Not Detected (Not Detect.); Influenza A PCR Not Detected (Not Detect.); Influenza B PCR Not Detected (Not Detect.); Mycoplasma pneumoniae PCR Not Detected (Not Detect.); Parainfluenza 1 PCR Not Detected (Not Detect.); Parainfluenza 2 PCR Not Detected (Not Detect.); Parainfluenza 3 PCR Not Detected (Not Detect.); Parainfluenza 4 PCR Not Detected (Not Detect.); RSV PCR Detected (Not Detect.); Rhino/Enterovirus PCR Not Detected (Not Detect.)
[2023-06-10 17:23] LABS: SARS-CoV-2 PCR Not Detected (Not Detect.)
[2023-06-11] MEDS: Valproic Acid (as Sodium Salt) 500 MG in Dextrose 5 % 50 ML 55 MG IV ×3 (00:15→14:54)
[2023-06-11] MEDS: Heparin Sodium,Porcine 5,000 UNIT/ML VIAL 5000 UNIT SUBCUT ×2 (02:25→12:04)
[2023-06-11 04:00] VITALS: BP 111/53; PULSE 91; RESP 18; TEMP 37.2; O2SAT 92
[2023-06-11 07:50] VITALS: BP 120/63; PULSE 83; RESP 22; TEMP 37.9; O2SAT 92
[2023-06-11] MEDS: Acetaminophen Supp 650 MG SUPP.RECT PR (08:00)
[2023-06-11] MEDS: 0.9 % Sodium Chloride 1,000 ML 80 ML IVCONT ×2 (08:01→21:49)
[2023-06-11] MEDS: 0.9 % Sodium Chloride Flush 3 ML SYRINGE IVFLUSH ×2 (08:01→14:54)
[2023-06-11 08:33] VITALS: TEMP 37.6
[2023-06-11 08:57] LABS: Venous Blood Gas Refer to POC result
[2023-06-11 08:58] LABS: VBG Base Excess 9.4 mmol/L; VBG HCO3 33 mmol/L (22-26); VBG pCO2 43 mmHg; VBG pH 7.49 (7.32-7.43); VBG pO2 94 mmHg
[2023-06-11 08:58] LABS: MANUAL DIFF FLAG NO
[2023-06-11 09:03] LABS: Basophils Percent Auto 0.2 % (0-2); Hematocrit 31.6 % (42.0-52.0); Hemoglobin 10.8 g/dl (14.0-18.0); Imm Gran Abs Auto 0.01 X10*3/uL (0.00-0.03); Imm Gran Pct Auto 0.2 % (0.0-0.4); Lymphocytes Absolute Auto 1.4 X10*3/uL (1.2-4.9); Lymphocytes Percent Auto 30.8 % (20-40); Mean Corpuscular HGB Conc 34.2 g/dl (31.0-36.0); Mean Corpuscular Hemoglobin 28.6 pg (27.0-33.0); Mean Corpuscular Volume 83.6 fL (80.0-98.0); Mean Platelet Volume 9.2 fL (9.4-12.4); Monocytes Absolute Auto 0.6 X10*3/uL (0.1-1.2); Monocytes Percent Auto 14.4 % (2-11); Neutrophils Absolute Auto 2.4 x10*3/uL (2.0-8.3); Neutrophils Percent Auto 54.4 % (45-73); Platelet Count 227 X10*3/uL (160-400); Red Blood Count 3.78 X10*6/uL (4.60-5.80); Red Cell Distribution Width 12.8 % (11.0-16.0); White Blood Count 4.5 X10*3/uL (4.8-10.8)
[2023-06-11 09:22] LABS: Anion Gap 12 (12-20); Blood Urea Nitrogen 9 mg/dL (9-16); Calcium 8.7 mg/dL (8.4-10.2); Carbon Dioxide 28 mmol/L (22-29); Chloride 102 mmol/L (96-108); Creatinine Clr Calc Pharmacy 150.5; Estimated Glomerular Filt Rate > 60; Glucose Random 95 mg/dL (60-115); Magnesium 1.6 mg/dL (1.6-2.6); Phosphorus 2.9 mg/dL (2.7-4.5); Potassium 3.1 mmol/L (3.3-5.1); Sodium 139 mmol/L (135-145)
[2023-06-11 12:00] VITALS: BP 150/67; PULSE 71; RESP 20; TEMP 36.8; O2SAT 97
[2023-06-11] MEDS: Aspirin Enteric Coated 81 MG TABLET.DR PO (12:04)
[2023-06-11] MEDS: Divalproex Sodium Sprinkles 125 MG CAP.DR.SPR 500 MG PO ×2 (12:04→21:50)
[2023-06-11] MEDS: clonazePAM 0.5 MG TABLET 0.25 MG PO (12:05)
[2023-06-11] MEDS: levETIRAcetam 1,000 MG TABLET 1000 MG PO ×2 (12:05→21:49)
[2023-06-11] MEDS: lamoTRIgine 25 MG TABLET 12.5 MG PO (12:05)
[2023-06-11 15:10] VITALS: BP 113/64; PULSE 76; RESP 28; TEMP 37; O2SAT 90
[2023-06-11] MEDS: Potassium Chloride/H20 10 MEQ/100 ML PIGGYBACK 100 MEQ IV ×2 (15:26→16:20)
--- NOTE | 2023-06-11 15:44 | MHC.SLORD ---
Speech Language Pathology Order Status: PRINCIPAL CLERK TYPIST did not see Pt on this date d/t time constraints. Per LAB SUPPORT TECHNICIAN he continues to clear throat with Honey-Thick Liquids. Per MD, PO medications adjusted today. PRINCIPAL CLERK TYPIST will follow-up tomorrow.
[2023-06-11 16:06] LABS: Procalcitonin 0.04 ng/mL
--- NOTE | 2023-06-11 17:53 | HO.PM.IMPN ---
Subjective Subjective Date of Service: 06/12/23 Interval History: possible aspiration pneumonia and breakthrough seizures. Review of Systems seems comfortable easly aurosable seems improving than yesterday. no fevers Physical Exam Vital Signs: Vital Signs: Last Vital Signs Temp 98.6 F 06/11/23 15:10 Pulse 76 06/11/23 15:10 Resp 28 H 06/11/23 15:10 BP 113/64 06/11/23 15:10 Pulse Ox 90 L 06/11/23 15:10 O2 Del Method Room Air 06/11/23 15:10 O2 Flow Rate 6 06/10/23 08:00 Oxygen Flow Rate 15 06/09/23 02:56 BMI result Body Mass Index 28.3 Appearance: easily aurosable .? cvs: rrr, [id number] , no murmur res: air entry fair , somewhat diminshed at bases abd: no rebound or guarding ,nt, bs present. ext pulses present , no cyanosis neuro: axo3 , nonfocal. Objective Data Active Medications Acetaminophen (Acetaminophen Supp 650 Mg Supp.Rect) 650 mg MI Q6H PRN PRN Reason: Pain, Mild, fever Last Admin: 06/11/23 08:00 Dose: 650 mg Documented By: VEE Aspirin (Aspirin Enteric Coated 81 Mg Tablet.) 81 mg PO DAILY [facility] Last Admin: 06/11/23 12:04 Dose: 81 mg Documented By: VEE Atorvastatin Calcium (Atorvastatin Calcium 20 Mg Tablet) 20 mg PO BEDTIME [facility] Clonazepam (Clonazepam 0.5 Mg Tablet) 0.25 mg PO BID@0800,1200 [facility] Last Admin: 06/11/23 12:05 Dose: 0.25 mg Documented By: VEE Divalproex Sodium (Divalproex Sodium Sprinkles 125 Mg Spr) 500 mg PO TID [facility] Last Admin: 06/11/23 15:03 Dose: Not Given Documented By: VEE Non-Admin Reason: HOLD PER PROVIDER Erythromycin (Erythromycin Base 0.5% Oph Oin 1 Gm Tube) 1 cm EYE-BOTH BID PRN PRN Reason: wounds Heparin Sodium (Porcine) (Heparin Sodium,Porcine 5,000 Unit/Ml Vial) 5,000 unit SUBCUT Q12H [facility] Last Admin: 06/11/23 12:04 Dose: 5,000 unit Documented By: VEE Sodium Chloride (Ns) 1,000 mls @ 80 mls/hr IVCONT .[id number] [facility] Last Admin: 06/11/23 08:01 Dose: 80 mls/hr Documented By: VEE Piperacillin Sod/Tazobactam (Sod 4.5 gm/ Sodium Chloride) 100 mls @ 200 mls/hr IV Q6H [facility] Lamotrigine (Lamotrigine 25 Mg Tablet) 12.5 mg PO DAILY [facility] Last Admin: 06/11/23 12:05 Dose: 12.5 mg Documented By: VEE Levetiracetam (Levetiracetam 1,000 Mg Tablet) 1,000 mg PO TID [facility] Last Admin: 06/11/23 15:06 Dose: Not Given Documented By: VEE Non-Admin Reason: HOLD PER PROVIDER Levothyroxine Sodium (Levothyroxine Sodium 88 Mcg Tablet) 88 mcg PO DAILY@0600 [facility] Lorazepam (Lorazepam 1 Mg Tablet) 1 mg PO Q30M PRN PRN Reason: Seizures Multi-Ingred Cream/Lotion/Oil/Oint (Artificial Tears Ophth Oint 3.5 Gm Tube) 1 appl EYE-BOTH BEDTIME [facility] Last Admin: 06/10/23 22:04 Dose: Not Given Documented By: MAYTE Non-Admin Reason: Patient Refused Multivitamins/Vitamin C (Multivitamin Tablet) 1 tab PO DAILY [facility] Non-Formulary Medication (Cholecalciferol (Vitamin D3)) 1,250 mcg PO WE [facility] Ondansetron HCl (Ondansetron Hcl 4 Mg/2 Ml Vial) 4 mg IVPUSH Q8H PRN PRN Reason: Nausea and Vomiting Sertraline HCl (Sertraline Hcl 50 Mg Tablet) 50 mg PO BEDTIME [facility] Sodium Biphosphate/Sodium Phosphate (Sodium Phosphate,[place]-Dibasic 133 Ml Enema) 118 ml MI DAILY PRN PRN Reason: Constipation Sodium Chloride (0.9 % Sodium Chloride Flush 3 Ml Syringe) 3 ml IVFLUSH QSHIFT [facility] Last Admin: 06/11/23 14:54 Dose: 3 ml Documented By: VEE Zinc Oxide (Zinc Oxide (Triple Paste) 56.7 Gm Oint) 1 appl TOPICAL TID PRN PRN Reason: Rash Labs 06/11/23 08:48 06/12/23 06:56 Labs: Laboratory Results - last 24 hr 06/11/23 06/11/23 08:48 08:52 MCV 83.6 MCH 28.6 MCHC 34.2 RDW 12.8 Plt Count 227 MPV 9.2 L Immature Gran % (Auto) 0.2 Neut % (Auto) 54.4 Lymph % (Auto) 30.8 Smith % (Auto) 14.4 H Eos % (Auto) 0.0 Baso % (Auto) 0.2 Lymph # (Auto) 1.4 Smith # (Auto) 0.6 Eos # (Auto) 0.0 Baso # (Auto) 0.0 Abs Immat Gran (auto) 0.01 Absolute Neuts (auto) 2.4 Absolute Nucleated RBC 0.000 Nucleated RBC % (auto) 0.0 VBG pH 7.49 H VBG pCO2 43 VBG pO2 94 VBG HCO3 33 H VBG O2 Saturation 100.0 VBG Base Excess 9.4 Anion Gap 12 Estim Creat Clear Calc 150.5 Estimated GFR > 60 Random Glucose 95 Calcium 8.7 Phosphorus 2.9 Magnesium 1.6 Procalcitonin 0.04 Assessment and Plan (1) Manjinder-Gastaut syndrome, intractable, with status epilepticus: Status: Acute (2) Parkinson disease: Status: Acute (3) Recurrent aspiration pneumonia: Status: Acute Plan 57-year-old male with history of hypothyroidism, osteopenia, glaucoma, hyperlipidemia, history of CVA, chronic constipation, anxiety, parkinson's disease, dysphagia, history aspiration pneumonia, epileptic seizure disorder with manjinder-gastaut syndrome admitted for suspected aspiration pneumonia with sepsis with acute metabolic encephalopathy and respiratory distress. Patient was admitted for Suspected aspiration pneumonia with sepsis and breakthrough seizure: Patient was started on IV antibiotics and-suction prn as above,CPT q shift Subsequently patient was becoming acutely in respiratory distress-went to ICU: Monitored with IV antibiotics and suctioning, subsequently patient sats improved and sent to the floor. Acute hypoxemic respiratory failure secondary to aspiration pneumonia/sepsis/rsv: Seems to be improving Sats are better Continue IV antibiotics, suctioning, add elevation Acute metabolic encephalopathy -2/2 above -monitor mentation-improving Speech and Swallow updated diet yesterday. po intake improving Moderate hyponatremia- resolved -likely 2/2 GI losses,Gip panel negative Hypokalemia: Repleted potassium. Epileptic seizure d/o with manjinder-gastaut syndrome Started patient's home medication including Depakote, Keppra, lamotrigine. Monitor for seizures, aspiration precautions, seizure precautions Neurology evaluation noted: Recommended to continue home medications. Hypothyroidism Started levothyroxine for now HLD Continue statin for now Anxiety Continue clonazepam n Continue sertraline DVT prophylaxis- SCP for now, resume heparin if no lp Full code Guardian- Clementine Lopez [phone] Diet- pt is pureed diet, thin liquids, pills in yogurt at alf On going hospitalization need: Aspiration pneumonia, seizure breakthrough: Need IV antibiotics, mental status monitoring, Quality Stroke Does the patient have a stroke diagnosis?: No VTE Prior VTE?: No VTE Risk Level:: Medical - moderate - high VTE Device Contraindication: Treatment Not Indicated VTE Drug Contraindication: N/A - Med Ordered
[2023-06-11 19:12] LABS: Valproate 73.2 mcg/mL (50.0-100.0)
--- NOTE | 2023-06-11 19:34 | P.CDIM_ITS ---
PROVIDER RESPONSE TEXT: To clarify, the appropriate diagnosis supported by the clinical indicators: Sepsis is/was present and is a clinical diagnosis based on QUERY TEXT: PHYSICIAN'S DOCUMENTATION REQUEST Date of Query: 06/11/2023 11:53 AM EST Patient Name: Rico Chin Admit Date: 06/08/2023 Dear Rita Patino, A review of the medical record indicates additional documentation may be needed. Please review below and update the documentation accordingly. Consistency and validation of diagnosis within the medical record: H&P: Patient's acute metabolic encephalopathy and Sepsis due to suspected aspiration pneumonia with a ssociated respiratory distress - will require admission for at least 2 midnights for IV antibiotics. Temp 101.5/103 Tachycardic 129/130 Tachypnea 24/33 Hypoxic pulse ox 90 L Assessment and plan: Suspected aspiration pneumonia with Sepsis Sepsis Systemic manifestations of infection, with 2 or more SIRS criteria which include: Fever > 100.4?F or hypothermia < 96.8?F Leukocytosis - WBC > 12,000 or leukopenia, WBC < 4,000, or > 10% bands Tachycardia- > 90 beats/minute Tachypnea- RR > 20 breaths/minute or PaCO2 < 32mmHg Based on the above information and the recognized standard for sepsis, could you please clarify if th is diagnoses is still accurate and reflective of the patient's condition to ensure quality of the medical record. Sepsis is/was present and is a clinical diagnosis based on After study (the condition) has been ruled out Other (explain) Clinically unable to determine (explain) Thank you, Nadine Arceo, CCS, CDIS Use of terms such as suspected, likely, concern for, or probable (associated with a specific diagnosi s that is being evaluated, monitored, or treated as if it exists) are acceptable and can be coded in the inpatient se tting, when documented at the time of discharge. Please use your independent medical judgment in providing your response. THIS QUERY IS PART OF THE PERMANENT MEDICAL RECORD
[2023-06-11 19:37] VITALS: BP 141/65; PULSE 78; RESP 20; TEMP 37.1; O2SAT 92
[2023-06-11] MEDS: Piperacillin Sodium/Tazobactam 4.5 GM in 0.9 % Sodium Chloride 100 ML IV (19:40)
[2023-06-11] MEDS: Atorvastatin Calcium 20 MG TABLET PO (21:49)
[2023-06-11] MEDS: Sertraline HCL 50 MG TABLET PO (21:49)
[2023-06-12] VITALS (7 sets, daily range): BP systolic 91–174; BP diastolic 43–75; PULSE 59–78; RESP 18–22; TEMP 36.1–36.6; O2SAT 92–94
[2023-06-12] MEDS: 0.9 % Sodium Chloride Flush 3 ML SYRINGE IVFLUSH ×3 (00:34→16:18)
[2023-06-12] MEDS: Heparin Sodium,Porcine 5,000 UNIT/ML VIAL 5000 UNIT SUBCUT ×2 (00:34→12:44)
[2023-06-12] MEDS: Piperacillin Sodium/Tazobactam 4.5 GM in 0.9 % Sodium Chloride 100 ML IV ×4 (00:35→18:40)
[2023-06-12] MEDS: Levothyroxine Sodium 88 MCG TABLET PO (06:14)
[2023-06-12 07:57] LABS: Anion Gap 10 (12-20); Blood Urea Nitrogen 5 mg/dL (9-16); Calcium 8.6 mg/dL (8.4-10.2); Carbon Dioxide 30 mmol/L (22-29); Chloride 102 mmol/L (96-108); Estimated Glomerular Filt Rate > 60; Glucose Random 104 mg/dL (60-115); Potassium 3.3 mmol/L (3.3-5.1); Sodium 139 mmol/L (135-145)
[2023-06-12] MEDS: lamoTRIgine 25 MG TABLET 12.5 MG PO (09:13)
[2023-06-12] MEDS: Divalproex Sodium Sprinkles 125 MG CAP.DR.SPR 500 MG PO (09:14)
[2023-06-12] MEDS: clonazePAM 0.5 MG TABLET 0.25 MG PO ×2 (09:15→12:44)
[2023-06-12] MEDS: Multivitamin TABLET 1 TAB PO (09:15)
[2023-06-12] MEDS: Aspirin Enteric Coated 81 MG TABLET.DR PO (09:15)
[2023-06-12] MEDS: levETIRAcetam 1,000 MG TABLET 1000 MG PO (09:19)
--- NOTE | 2023-06-12 10:37 | MHC.SLORD ---
Speech Language Pathology Order Status: Pt refusing all offerings of food and drink this morning. Pt clutching onto and sucking on stuffed animal, turning head away stating No! when offered teaspoon of juice and applesauce. Pt is not participatory in HEALTH EDITOR visit today. He is currently on a pureed diet (NDD1) with honey thick liquids via TSPN only. Pt requires total 1:1 assistance feeding, to be closely monitored. Hold tray if pt is lethargic, not attending to meal, or shows any overt s/s of aspiration.
--- NOTE | 2023-06-12 11:46 | MHC.CLN ---
F/U PO INTAKE VARIABLE RANGING FROM 0-75% DIET RX: PUREED WITH HT LIQ-APPROPRIATE UROLOGY NURSE FOLLOWING FOR APPROPRIATE CONSISTENCY CONTINUE TO MONITOR PO INTAKE
[2023-06-12] MEDS: 0.9 % Sodium Chloride 1,000 ML 80 ML IVCONT (12:56)
--- NOTE | 2023-06-12 14:58 | MHC.CM.PN ---
Pt not yet ready for DC. CM spoke to [facility] nurse Jane today, she said she will have DC forms dropped off at hosp. today by [facility] staff. CM to follow and assist with DC planning.
[2023-06-12] MEDS: levETIRAcetam in NaCl (iso-os) 1,000 MG/100 ML PIGGYBACK 400 MG IV ×2 (16:22→21:04)
--- NOTE | 2023-06-12 16:30 | P.PNIM_ITS ---
Subjective Subjective Date of Service: 06/12/23 Interval History: possible aspiration pneumonia and breakthrough seizures. Review of Systems easly aurosable seems improving than yesterday. no fevers Physical Exam 2 Vital Signs: Vital Signs: Last Vital Signs Temp 97.9 F 06/12/23 16:00 Pulse 67 06/12/23 16:00 Resp 20 06/12/23 16:00 BP 100/50 06/12/23 16:00 Pulse Ox 93 06/12/23 16:00 O2 Del Method Room Air 06/12/23 16:00 O2 Flow Rate 6 06/10/23 08:00 Oxygen Flow Rate 15 06/09/23 02:56 BMI result Body Mass Index 28.3 Appearance: easily aurosable .? cvs: rrr, [id number] , no murmur res: air entry fair , somewhat diminshed at bases abd: no rebound or guarding ,nt, bs present. ext pulses present , no cyanosis neuro: axo3 , nonfocal. Objective Data Active Medications Acetaminophen (Acetaminophen Supp 650 Mg Supp.Rect) 650 mg MS Q6H PRN PRN Reason: Pain, Mild, fever Last Admin: 06/11/23 08:00 Dose: 650 mg Documented By: VEE Aspirin (Aspirin Enteric Coated 81 Mg Tablet.) 81 mg PO DAILY [facility] Last Admin: 06/12/23 09:15 Dose: 81 mg Documented By: LINDSEY Atorvastatin Calcium (Atorvastatin Calcium 20 Mg Tablet) 20 mg PO BEDTIME [facility] Last Admin: 06/11/23 21:49 Dose: 20 mg Documented By: DIAZDEM Clonazepam (Clonazepam 0.5 Mg Tablet) 0.25 mg PO BID@0800,1200 [facility] Last Admin: 06/12/23 12:44 Dose: 0.25 mg Documented By: LINDSEY Erythromycin (Erythromycin Base 0.5% Oph Oin 1 Gm Tube) 1 cm EYE-BOTH BID PRN PRN Reason: wounds Heparin Sodium (Porcine) (Heparin Sodium,Porcine 5,000 Unit/Ml Vial) 5,000 unit SUBCUT Q12H [facility] Last Admin: 06/12/23 12:44 Dose: 5,000 unit Documented By: LINDSEY Piperacillin Sod/Tazobactam (Sod 4.5 gm/ Sodium Chloride) 100 mls @ 200 mls/hr IV Q6H [facility] Last Infusion: 06/12/23 13:25 Dose: Infused Documented By: LINDSEY Levetiracetam (Keppra) 1,000 mg in 100 mls @ 400 mls/hr IV TID [facility] Last Admin: 06/12/23 16:22 Dose: 400 mls/hr Documented By: MYRTLE Valproic Acid 500 mg/ Dextrose 55 mls @ 55 mls/hr IV Q8H [facility] Lamotrigine (Lamotrigine 25 Mg Tablet) 12.5 mg PO DAILY [facility] Last Admin: 06/12/23 09:13 Dose: 12.5 mg Documented By: LINDSEY Levothyroxine Sodium (Levothyroxine Sodium 88 Mcg Tablet) 88 mcg PO DAILY@0600 [facility] Last Admin: 06/12/23 06:14 Dose: 88 mcg Documented By: ETHEL Lorazepam (Lorazepam 1 Mg Tablet) 1 mg PO Q30M PRN PRN Reason: Seizures Multi-Ingred Cream/Lotion/Oil/Oint (Artificial Tears Ophth Oint 3.5 Gm Tube) 1 appl EYE-BOTH BEDTIME [facility] Last Admin: 06/11/23 21:54 Dose: Not Given Documented By: MCKENNA Non-Admin Reason: Patient Refused Multivitamins/Vitamin C (Multivitamin Tablet) 1 tab PO DAILY [facility] Last Admin: 06/12/23 09:15 Dose: 1 tab Documented By: LINDSEY Non-Formulary Medication (Cholecalciferol (Vitamin D3)) 1,250 mcg PO [facility] Ondansetron HCl (Ondansetron Hcl 4 Mg/2 Ml Vial) 4 mg IVPUSH Q8H PRN PRN Reason: Nausea and Vomiting Sertraline HCl (Sertraline Hcl 50 Mg Tablet) 50 mg PO BEDTIME [facility] Last Admin: 06/11/23 21:49 Dose: 50 mg Documented By: MCKENNA Sodium Biphosphate/Sodium Phosphate (Sodium Phosphate,[place]-Dibasic 133 Ml Enema) 118 ml MS DAILY PRN PRN Reason: Constipation Sodium Chloride (0.9 % Sodium Chloride Flush 3 Ml Syringe) 3 ml IVFLUSH QSHIFT [facility] Last Admin: 06/12/23 16:18 Dose: 3 ml Documented By: MYRTLE Zinc Oxide (Zinc Oxide (Triple Paste) 56.7 Gm Oint) 1 appl TOPICAL TID PRN PRN Reason: Rash Labs 06/11/23 08:48 06/12/23 06:56 Labs: Laboratory Results - last 24 hr 06/11/23 06/12/23 18:42 06:56 Hold Purple Top SEE NOTE Anion Gap 10 L Estim Creat Clear Calc 180.0 Estimated GFR > 60 Random Glucose 104 Calcium 8.6 Valproic Acid 73.2 Assessment and Plan (1) Recurrent aspiration pneumonia: Status: Acute (2) Parkinson disease: Status: Acute (3) Manjinder-Gastaut syndrome, intractable, with status epilepticus: Status: Acute Plan 57-year-old male with history of hypothyroidism, osteopenia, glaucoma, hyperlipidemia, history of CVA, chronic constipation, anxiety, parkinson's disease, dysphagia, history aspiration pneumonia, epileptic seizure disorder with manjinder-gastaut syndrome admitted for suspected aspiration pneumonia with sepsis with acute metabolic encephalopathy and respiratory distress. Patient was admitted for Suspected aspiration pneumonia with sepsis and breakthrough seizure: Patient was started on IV antibiotics and-suction prn as above,CPT q shift Subsequently patient was becoming acutely in respiratory distress-went to ICU: Monitored with IV antibiotics and suctioning, subsequently patient sats improved and sent to the floor. Acute hypoxemic respiratory failure secondary to aspiration pneumonia/sepsis/rsv: Seems to be improving Sats are better Continue IV antibiotics, suctioning, add elevation Acute metabolic encephalopathy -2/2 above -monitor mentation-improving Speech and Swallow updated diet yesterday. po intake improving Moderate hyponatremia- resolved -likely 2/2 GI losses,Gip panel negative Hypokalemia: Repleted potassium. Epileptic seizure d/o with manjinder-gastaut syndrome Started patient's home medication including Depakote, Keppra, lamotrigine. Monitor for seizures, aspiration precautions, seizure precautions Neurology evaluation noted: Recommended to continue home medications. Hypothyroidism Started levothyroxine for now HLD Continue statin for now Anxiety Continue clonazepam n Continue sertraline DVT prophylaxis- SCP for now, resume heparin if no lp Full code Guardian- Clementine Lopez [phone]. Diet- pt is pureed diet, thin liquids, pills in yogurt at [facility] On going hospitalization need: Acute hypoxemic respiratory failure secondary to aspiration pneumonia/sepsis/rsv:Aspiration pneumonia, seizure breakthrough: Need IV antibiotics, mental status and respiratory monitoringdue to reccurrent aspirational pneumonias. Quality Stroke Does the patient have a stroke diagnosis?: No VTE Prior VTE?: No VTE Risk Level:: Medical - moderate - high VTE Device Contraindication: Treatment Not Indicated VTE Drug Contraindication: N/A - Med Ordered
[2023-06-12] MEDS: Valproic Acid (as Sodium Salt) 500 MG in Dextrose 5 % 50 ML 55 MG IV (17:30)
[2023-06-12] MEDS: Atorvastatin Calcium 20 MG TABLET PO (21:04)
[2023-06-12] MEDS: Sertraline HCL 50 MG TABLET PO (21:04)
[2023-06-12] MEDS: Artificial Tears Ophth Oint 3.5 GM TUBE 1 APPL EYE-BOTH (21:30)
[2023-06-13] VITALS (8 sets, daily range): BP systolic 111–166; BP diastolic 58–76; PULSE 56–93; RESP 17–20; TEMP 35.9–36.7; O2SAT 92–96
[2023-06-13] MEDS: 0.9 % Sodium Chloride Flush 3 ML SYRINGE IVFLUSH ×2 (01:55→20:39)
[2023-06-13] MEDS: Piperacillin Sodium/Tazobactam 4.5 GM in 0.9 % Sodium Chloride 100 ML IV ×4 (01:56→18:32)
[2023-06-13] MEDS: Heparin Sodium,Porcine 5,000 UNIT/ML VIAL 5000 UNIT SUBCUT ×2 (01:56→12:27)
[2023-06-13] MEDS: Valproic Acid (as Sodium Salt) 500 MG in Dextrose 5 % 50 ML 55 MG IV ×3 (02:34→16:36)
[2023-06-13 03:29] LABS: Legionella Ag Urine Not Detected (Not Detected)
[2023-06-13 04:24] LABS: Strep Pneumo Ag urine Not Detected (Not Detected)
[2023-06-13] MEDS: Levothyroxine Sodium 88 MCG TABLET PO (06:21)
[2023-06-13] MEDS: lamoTRIgine 25 MG TABLET 12.5 MG PO (08:14)
[2023-06-13] MEDS: clonazePAM 0.5 MG TABLET 0.25 MG PO ×2 (08:15→12:24)
[2023-06-13] MEDS: Aspirin Enteric Coated 81 MG TABLET.DR PO (08:15)
[2023-06-13] MEDS: Multivitamin TABLET 1 TAB PO (08:16)
[2023-06-13] MEDS: levETIRAcetam in NaCl (iso-os) 1,000 MG/100 ML PIGGYBACK 400 MG IV ×3 (09:39→20:28)
--- NOTE | 2023-06-13 13:37 | MHC.SL.SWA ---
Speech Pathologist Impression: Risk of Aspiration Due to: History of Pneumonia Reduced Cognition Dysphasia Diet Status: Recommend patient continue on Puree (NDD1) with HONEY THICK liquids, by tsp only, pills crushed with puree. Liquid Consistency and Strategies for Safe Swallow: Liquid Intake Recommendation: Honey Thick Liquid Intake Strategies: Liquids by Teaspoon Only Solid Food Consistency: Dietary Recommendations: Pureed (NDD1) Additional Modifications to Solid Foods: Recommend continue on PUREED (NDD1) diet and HONEY THICK liquids via TEASPOON ONLY, pills CRUSHED in PUREE, 1:1 feeding, close monitoring. Pt to be fed carefully with a slow pace while minimizing distractions. Give pt half-teaspoon amounts at a time, oral cavity check periodically for clearance, allow pt ample time to swallow. Ensure upright position at 90 degree angle during feeding and for at least 45 minutes afterwards. Maintain frequent oral care for hygiene. Hold tray if pt is lethargic, not engaged in meal, or displays any overt s/s of aspiration. RISK COMPLIANCE MANAGER will continue to follow during pt's inpatient stay. Oral Medication Intake: Crushed with Puree Please contact the pharmacy regarding appropriate crushable or liquid drug formulations that are available whenever modified delivery is recommended. Compensatory Strategies and Precautions to be Taken for Safe Swallow: Sitting Upright (90 deg) Liquids from Spoon Small Bites and Sips Alternate Liquids/Solids Rate of Ingestion Change Supervision While Eating and Drinking for Safe Swallow: Total Assistance (1:1) Foods to Avoid: Swallowing Recommended Treatments: Gustatory Stimulation Recommendation for Speech: Inpatient Speech Therapy Speech Therapy through Rehab Facility Comment: Patient seen at lunch today. Initially patient was soundly asleep, did not wake when repositioned in bed, spoken to by RISK COMPLIANCE MANAGER and RN, nor to sternal rub/shoulder shake. However, when patient presented with tsp of chocolate pudding, patient roused without opening eyes, continued with head droop, but readily took pudding, salivating at taste. On purees, patient produced mildly rapid oral phase followed by timely swallow with reduced laryngeal elevation palpated. Due to head position (tilted forward toward chest), some food occasionally escaped/dropped from mouth. Patient was given HT liquid by tsp, with patient similarly mostly able to contain liquid, producing a mildly rapid oral phase and timely swallow. Care worker from alf entered room during po trials, reporting that patient normally has a good appetite and eats well. Baseline at alf is Puree with Regular liquids. When engaged and motivated, patient is able to feed self at [facility]. Due to observed difficulty today with positioning head well while seated upright in bed, and loss of food/ liquid from mouth as a result, Recommend patient continue on Puree (NDD1) with HONEY THICK liquids, by tsp only, pills crushed with puree. RISK COMPLIANCE MANAGER will continue to follow, re-assess for readiness to advance liquids to baseline. Frequency/Duration: Date Range for Service Req: Timeline to reassess: Professor Of Theatre Clinican/Clinical Fellow: No Supervisory Statement: I have reviewed and agree with the student/clinical fellow's documentation: N/A Speech Language Pathologist: Maureen Milan M.A., CCC-RISK COMPLIANCE MANAGER
--- NOTE | 2023-06-13 16:25 | HO.PM.IMPN ---
Subjective Subjective Date of Service: 06/13/23 Interval History: possible aspiration pneumonia and breakthrough seizures. Review of Systems easly aurosable seems improving than yesterday. no fevers as per [facility] -seems to be near baseline. Physical Exam Vital Signs: Vital Signs: Last Vital Signs Temp 97.6 F 06/13/23 15:14 Pulse 69 06/13/23 15:14 Resp 18 06/13/23 15:14 BP 130/60 06/13/23 15:14 Pulse Ox 94 06/13/23 15:14 O2 Del Method Room Air 06/13/23 15:14 O2 Flow Rate 6 06/10/23 08:00 Oxygen Flow Rate 15 06/09/23 02:56 BMI result Body Mass Index 28.3 Appearance: easily aurosable .? cvs: rrr, [id number] , no murmur res: air entry fair , somewhat diminshed at bases abd: no rebound or guarding ,nt, bs present. ext pulses present , no cyanosis neuro: axo3 , nonfocal. Objective Data Active Medications Acetaminophen (Acetaminophen Supp 650 Mg Supp.Rect) 650 mg TN Q6H PRN PRN Reason: Pain, Mild, fever Last Admin: 06/11/23 08:00 Dose: 650 mg Documented By: VEE Aspirin (Aspirin Enteric Coated 81 Mg Tablet.) 81 mg PO DAILY [facility] Last Admin: 06/13/23 08:15 Dose: 81 mg Documented By: MYRTLE Atorvastatin Calcium (Atorvastatin Calcium 20 Mg Tablet) 20 mg PO BEDTIME [facility] Last Admin: 06/12/23 21:04 Dose: 20 mg Documented By: MARCELLE Clonazepam (Clonazepam 0.5 Mg Tablet) 0.25 mg PO BID@0800,1200 [facility] Last Admin: 06/13/23 12:24 Dose: 0.25 mg Documented By: MYRTLE Erythromycin (Erythromycin Base 0.5% Oph Oin 1 Gm Tube) 1 cm EYE-BOTH BID PRN PRN Reason: wounds Heparin Sodium (Porcine) (Heparin Sodium,Porcine 5,000 Unit/Ml Vial) 5,000 unit SUBCUT Q12H [facility] Last Admin: 06/13/23 12:27 Dose: 5,000 unit Documented By: MYRTLE Piperacillin Sod/Tazobactam (Sod 4.5 gm/ Sodium Chloride) 100 mls @ 200 mls/hr IV Q6H [facility] Last Infusion: 06/13/23 13:07 Dose: Infused Documented By: MYRTLE Levetiracetam (Keppra) 1,000 mg in 100 mls @ 400 mls/hr IV TID [facility] Last Infusion: 06/13/23 15:29 Dose: Infused Documented By: MYRTLE Valproic Acid 500 mg/ Dextrose 55 mls @ 55 mls/hr IV Q8H [facility] Last Infusion: 06/13/23 11:31 Dose: Infused Documented By: MYRTLE Lamotrigine (Lamotrigine 25 Mg Tablet) 12.5 mg PO DAILY [facility] Last Admin: 06/13/23 08:14 Dose: 12.5 mg Documented By: MYRTLE Levothyroxine Sodium (Levothyroxine Sodium 88 Mcg Tablet) 88 mcg PO DAILY@0600 [facility] Last Admin: 06/13/23 06:21 Dose: 88 mcg Documented By: MARCELLE Lorazepam (Lorazepam 1 Mg Tablet) 1 mg PO Q30M PRN PRN Reason: Seizures Multi-Ingred Cream/Lotion/Oil/Oint (Artificial Tears Ophth Oint 3.5 Gm Tube) 1 appl EYE-BOTH BEDTIME [facility] Last Admin: 06/12/23 21:30 Dose: 1 appl Documented By: MARCELLE Multivitamins/Vitamin C (Multivitamin Tablet) 1 tab PO DAILY [facility] Last Admin: 06/13/23 08:16 Dose: 1 tab Documented By: MYRTLE Non-Formulary Medication (Cholecalciferol (Vitamin D3)) 1,[address] [facility] Ondansetron HCl (Ondansetron Hcl 4 Mg/2 Ml Vial) 4 mg IVPUSH Q8H PRN PRN Reason: Nausea and Vomiting Sertraline HCl (Sertraline Hcl 50 Mg Tablet) 50 mg PO BEDTIME [facility] Last Admin: 06/12/23 21:04 Dose: 50 mg Documented By: MARCELLE Sodium Biphosphate/Sodium Phosphate (Sodium Phosphate,Hancock-Dibasic 133 Ml Enema) 118 ml TN DAILY PRN PRN Reason: Constipation Sodium Chloride (0.9 % Sodium Chloride Flush 3 Ml Syringe) 3 ml IVFLUSH QSHIFT [facility] Last Admin: 06/13/23 08:14 Dose: Not Given Documented By: MYRTLE Non-Admin Reason: IV Running Zinc Oxide (Zinc Oxide (Triple Paste) 56.7 Gm Oint) 1 appl TOPICAL TID PRN PRN Reason: Rash Labs 06/11/23 08:48 06/12/23 06:56 Labs: Laboratory Results - last 24 hr 06/10/23 13:00 Ur L.pneumophila Ag Not Detected Ur Strep pneumoniae Ag Not Detected Microbiology Microbiology Results: Microbiology 06/08/23 05:06 Blood Culture - Final Blood - Venous No growth after 5 days. 06/08/23 05:06 Blood Culture - Final Blood - Venous No growth after 5 days. Assessment and Plan (1) Recurrent aspiration pneumonia: Status: Acute (2) Parkinson disease: Status: Acute (3) Manjinder-Gastaut syndrome, intractable, with status epilepticus: Status: Acute Plan 57-year-old male with history of hypothyroidism, osteopenia, glaucoma, hyperlipidemia, history of CVA, chronic constipation, anxiety, parkinson's disease, dysphagia, history aspiration pneumonia, epileptic seizure disorder with manjinder-gastaut syndrome admitted for suspected aspiration pneumonia with sepsis with acute metabolic encephalopathy and respiratory distress. Patient was admitted for Suspected aspiration pneumonia with sepsis and breakthrough seizure: Patient was started on IV antibiotics and-suction prn as above,CPT q shift Subsequently patient was becoming acutely in respiratory distress-went to ICU: Monitored with IV antibiotics and suctioning, subsequently patient sats improved and sent to the floor. Acute hypoxemic respiratory failure secondary to aspiration pneumonia/sepsis/rsv: Seems to be improving Sats are better Continue IV antibiotics, suctioning, add elevation Acute metabolic encephalopathy -2/2 above -monitor mentation-improving Speech and Swallow updated diet yesterday. po intake improving Moderate hyponatremia- resolved -likely 2/2 GI losses,Gip panel negative Hypokalemia: Repleted potassium. Epileptic seizure d/o with manjinder-gastaut syndrome Started patient's home medication including Depakote, Keppra, lamotrigine. Monitor for seizures, aspiration precautions, seizure precautions Neurology evaluation noted: Recommended to continue home medications. Hypothyroidism Started levothyroxine for now HLD Continue statin for now Anxiety Continue clonazepam n Continue sertraline DVT prophylaxis- SCP for now, resume heparin if no lp Full code Guardian- Clementine John [phone]. Diet- pt is pureed diet, thin liquids, [facility] On going hospitalization need: Acute hypoxemic respiratory failure secondary to aspiration pneumonia/sepsis/rsv:Aspiration pneumonia, seizure breakthrough: Need IV antibiotics, mental status and respiratory monitoringdue to reccurrent aspirational pneumonias. Quality Stroke Does the patient have a stroke diagnosis?: No VTE Prior VTE?: No VTE Risk Level:: Medical - moderate - high VTE Device Contraindication: Treatment Not Indicated VTE Drug Contraindication: N/A - Med Ordered
[2023-06-13] MEDS: Insulin Lispro 100 UNIT/ML 3 ML VIAL SUBCUT (17:44)
[2023-06-13] MEDS: Atorvastatin Calcium 20 MG TABLET PO (20:28)
[2023-06-13] MEDS: Sertraline HCL 50 MG TABLET PO (20:28)
[2023-06-13] MEDS: Artificial Tears Ophth Oint 3.5 GM TUBE 1 APPL EYE-BOTH (20:38)
[2023-06-14] MEDS: Piperacillin Sodium/Tazobactam 4.5 GM in 0.9 % Sodium Chloride 100 ML IV ×2 (01:02→07:08)
[2023-06-14] MEDS: Heparin Sodium,Porcine 5,000 UNIT/ML VIAL 5000 UNIT SUBCUT (01:03)
[2023-06-14] MEDS: Valproic Acid (as Sodium Salt) 500 MG in Dextrose 5 % 50 ML 55 MG IV ×2 (01:48→10:21)
[2023-06-14 03:36] VITALS: BP 105/57; PULSE 78; RESP 20; TEMP 36.9; O2SAT 94
[2023-06-14 07:12] VITALS: BP 163/75; PULSE 105; RESP 20; TEMP 36.6; O2SAT 96
[2023-06-14 07:31] VITALS: BP 100/68
[2023-06-14] MEDS: lamoTRIgine 25 MG TABLET 12.5 MG PO (07:38)
[2023-06-14] MEDS: Multivitamin TABLET 1 TAB PO (07:38)
[2023-06-14] MEDS: clonazePAM 0.5 MG TABLET 0.25 MG PO ×2 (07:38→11:49)
[2023-06-14] MEDS: Aspirin Enteric Coated 81 MG TABLET.DR PO (07:38)
[2023-06-14] MEDS: levETIRAcetam in NaCl (iso-os) 1,000 MG/100 ML PIGGYBACK 400 MG IV (07:45)
[2023-06-14 08:30] VITALS: BP 119/60; PULSE 72; RESP 20; TEMP 37.3; O2SAT 93
--- NOTE | 2023-06-14 09:55 | MHC.SLORD ---
Speech Language Pathology Order Status: Pt snoring, not waking to sternal rub. Pt had breakfast at bedside which did not appear to be eaten. Pt not appropriate for PO trials at this time d/t lethargic state.
[2023-06-14] MEDS: Amoxicillin/Potassium Clav 4,000 MG/50 ML SUSP.RECON 875 MG PO (10:18)
[2023-06-14 11:00] VITALS: BP 129/58; PULSE 59; RESP 20; TEMP 36.1; O2SAT 93
--- NOTE | 2023-06-14 11:18 | P.DS_ITS ---
DS: Providers Provider Date of Service: 06/14/23 Date of admission: 06/08/23 12:59 Date of discharge: 06/14/23 Primary care physician: CADEN Grey Consults: 06/09/23 07:15 Consult to Infectious Diseases Routine Consulting Provider: [facility] [place] Infectious Disease Reason for consultation: high fevers, has unimpressive aspiration pneumonia, ?other etiology 06/09/23 07:40 Consult to Neurology Routine Consulting Provider: [facility] Reason for consultation: breakthrough cluster seizures Attending physician on discharge: Rita Patino Discharging clinician: Rita Patino DS: Diagnosis Discharge Diagnosis (1) Recurrent aspiration pneumonia: Status: Acute (2) Parkinson disease: Status: Acute (3) Hebo-Gastaut syndrome, intractable, with status epilepticus: Status: Acute DS: Summary Hospital Course Hospital Course: 57-year-old male with a PMH significant for?Parkinson's, TIA, HLD,hx of aspiration pneumonia, anxiety/depression and cluster seizures currently on Keppra 100 mg t.i.d. and Depakote 500 mg t.i.d. with Ativan p.r.n. who presents to the ED from long-term for cluster seizures this morning starting around 07:00. Patient is legally blind, bedbound at baseline, and verbally limited, though can make some of his needs known and can speak with simple words and short phrases. HPI obtained from chart and provider review, and long-term staff at beside. Per long-term staff patient has regular, though intermittent, seizures. Reports some weeks he may have many, though other weeks he may have none. Per protocol, patient receives 1 mg Ativan p.o. q 30 minutes for breakthrough seizures, and will be sent to the ED for evaluation after 3 doses of Ativan. Patient began having seizures this morning at 07:00 and received his total 3 doses of Ativan before calling EMS. Staff estimate patient had around 60 seizures this morning, each lasting between 5 and 15 seconds. Patient additionally had up to 4 seizures since being in the ED. staff report patient has seizures this morning were typical of the type he normally has, they just could not stop them with Ativan. Staff note patient recently got over COVID 2-3 weeks ago. Also report he has been not eating as much as normally. Patient is on a pureed diet with thin liquids. ED consulted the patient's neurologist Dr. Tito Shafer at [facility], who recommended giving Ativan 1 mg IV now and then q.6 hours for a total of 3 doses. Also recommended adding Lamictal 12.5 mg daily to patient's medications. Suggested admitting the patient, and if seizure-free throughout tomorrow morning patient can be discharged back to long-term and he will follow-up with him outpatient. In the ED patient was afebrile but tachycardic up to 106, BP a little soft at 116/51. Labs were largely unremarkable, stable H&H of 12.7/37.2, sodium 133. Hepatic and renal function WNL. Magnesium WNL. Valproic acid therapeutic at 82.7. Keppra level pending. UA negative for UTI. CXR a limited exam but showed no evidence for acute disease in the chest. CT?of head significantly limited with patient motion artifact, but did not find any acute intracranial hemorrhage or territorial infarction. Did show stable generalized brain parenchymal vomiting loss and ex vacuo dilation of the ventricles. EKG demonstrated normal sinus rhythm with nonspecific T-wave abnormality with T-wave inversions in V1 and V2, but no evidence of ST elevations or depressions. Pt was treated with IVF, Ativan 1 mg IV, lamotrigine 12.5 mg p.o. Pt will be admitted to the hospital under observation on telemetry for treatment and further evaluation of breakthrough cluster seizures. Hospital course: Patient was admitted to the hospital for suspected aspiration pneumonia and breakthrough seizure,also fund to have rsv uri: Patient was started on IV antibiotics, his seizure medications subsequently patient developed the acute hypoxemic respiratory failure-went to ICU: With antibiotics and seizure medication,oxygen and supprotive acre -patient seems to be improved significantly : Patient was transferred back to the floor for further management. Patient is feeling better, blood culture negative, tapered off oxygen, as per long-term he seems to be back to his baseline, patient was switched to p.o. antibiotics upon discharge(patient received IV Zosyn from 06/10 to 06/14), switched to p.o. Augmentin for 2 more days. Hypokalemia repleted and resolved. Patient was seen by speech and Swallow dieted of advanced to pureed/honey thick. plan: Follow Keppra levels pending at the time of discharge-follow Keppra level in rehab complete po augmentin 875 mg po bid for 2 days Repeat chest imaging in 3-4 weeks to see resolution of pneumonia, follow-up with speech and Swallow eval in rehab. Follow-up it outpatient PCP Assessment and plan coordination time spent 50 minute. Time Attestation Discharge coordination time: Greater than 30 minutes Quality: Safe Use of Opioids Does Pt have an Active Cancer Diagnosis on the Problem List?: No Quality: Stroke Does the patient have a stroke diagnosis?: No Physical Exam Vital Signs: Vital Signs: Last Vital Signs Temp 97 F 06/14/23 11:00 Pulse 59 06/14/23 11:00 Resp 20 06/14/23 11:00 BP 129/58 L 06/14/23 11:00 Pulse Ox 93 06/14/23 11:00 O2 Del Method Room Air 06/14/23 11:00 O2 Flow Rate 6 06/10/23 08:00 Oxygen Flow Rate 15 06/09/23 02:56 BMI result Body Mass Index 28.3 Appearance: easily aurosable .? cvs: rrr, [id number] , no murmur res: air entry fair , somewhat diminshed at bases abd: no rebound or guarding ,nt, bs present. ext pulses present , no cyanosis neuro: axo3 , nonfocal. DS: Data Imaging Chest x-ray: Radiologist's impression: ITS Impressions Chest X-Ray 06/08/23 05:10 IMPRESSION: Limited exam. No definitive evidence for active cardiopulmonary disease. Abdomen/Pelvis CT 06/08/23 10:56 IMPRESSION: Limited exam due to motion. No acute findings. Fleischner guidelines were followed. Chest CT 06/08/23 14:27 IMPRESSION: Diffuse mild bronchial wall thickening and increased peribronchial attenuation in the right lung suggestive of bronchopneumonia. Appearance compatible with aspiration pneumonia. Fleischner guidelines were followed. Head CT 06/08/23 21:10 IMPRESSION: No acute intracranial findings. Generalized parenchymal volume loss is unchanged as compared to prior studies. MRI with and without contrast would be more sensitive for acute meningeal abnormalities. Chest X-Ray 06/09/23 13:00 IMPRESSION: Limited exam. Low lung volumes. Central airways disease. Question increasing atelectasis or consolidation at the left lung base. Discharge Plan Discharge Anticipated Discharge Date/Time: 06/13/23 14:24 Patient Disposition: Home, Self-Care Discharge Diagnosis: possible aspiration pneumonia and rsv uri and breakthrough seizures. Referrals: Julissa Marques PA [Primary Care Provider] - 1 Week Discharge Medications: New amoxicillin-pot clavulanate 400-57 mg/5 mL Suspension For Reconstitution 10 ml PO BID Qty: 40 0RF Continued levetiracetam 500 mg tablet 1,000 mg PO TID bacitracin 500 unit/gram ointment 1 appl ophthalmic (eye) BID PRN (Reason: wounds) clonazepam 0.5 mg Tablet 0.5 mg PO BEDTIME Rx Instructions: administer 30 minutes before bedtime clonazepam 0.5 mg Tablet 0.25 mg PO BID@0800,1200 felbamate 400 mg tablet 800 mg PO TID aspirin 81 mg tablet,delayed release (DR/EC) 81 mg PO DAILY simvastatin 40 mg tablet 40 mg PO BEDTIME levothyroxine 88 mcg tablet 88 mcg PO DAILY docusate sodium 100 mg Capsule 100 mg PO BID@0800,2000 sertraline 50 mg tablet 50 mg PO BEDTIME divalproex [Depakote Sprinkles] 125 mg capsule, delayed rel sprinkle 500 mg PO TID cholecalciferol (vitamin D3) 1,250 mcg (50,000 unit) capsule 1,250 mcg PO WE Desitin Daily Defense 13 % cream 1 appl topical TID PRN (Reason: Rash) multivitamin with folic acid [Thera] 400 mcg tablet 1 tab PO QAM lorazepam 1 mg Tablet 1 mg PO Q30M MDD 3 PRN (Reason: Seizures) acetaminophen 325 mg Tablet 650 mg PO Q6H PRN (Reason: Fever Or Pain) Rx Instructions: not to exceed 3000mg in 24 hours guaifenesin [Robafen] 100 mg/5 mL Liquid 200 mg PO Q6H PRN (Reason: Cough) magnesium hydroxide [Milk of Magnesia] 400 mg/5 mL suspension 30 ml PO Q OTHER DAY PRN (Reason: Constipation) bisacodyl [OneLAX Bisacodyl] 10 mg suppository 10 mg MO DAILY PRN (Reason: Constipation) Enema Disposable 19-7 gram/118 mL enema 118 ml MO DIRECTED PRN (Reason: Constipation) Rx Instructions: on day 4 of no BM polyethylene glycol 3350 17 gram/dose powder 17 g PO QAM Rx Instructions: hold for loose stools Refresh P.M. 57.3-42.5 % ointment 0.25 inch ophthalmic (eye) BEDTIME lamotrigine 25 mg tablet 12.5 mg PO QAM Discharge Orders: Discharge Order (Routine); Ordered 06/14/23 Ordered By: Rita Patino Diet: pureed /honey thick Activity on Discharge: As tolerated Stand Alone Forms: Patient Portal Discharge page Care Plan Goals: Patient was admitted to the hospital for suspected aspiration pneumonia and breakthrough seizure,also fund to have rsv uri: Patient was started on IV antibiotics, his seizure medications subsequently patient developed the acute hypoxemic respiratory failure-went to ICU: With antibiotics and seizure medica tion,oxygen and supprotive acre -patient seems to be improved significantly : Patient was transferred back to the floor for further management. Patient is feeling better, blood culture negative, tapered off oxygen, as per long-term he seems to be back to his baseline, patient was switched to p.o. antibiotics upon discharge(patient received IV Zosyn from 06/10 to 06/14), switched to p.o. Augmentin for 2 more days. Hypokalemia repleted and resolved. Patient was seen by speech and Swallow dieted of advanced to pureed/honey thick. Health Concerns: As above Plan of Treatment: As above. Assessment: As above. Patient Instructions: Pneumonia (DC)
--- NOTE | 2023-06-14 11:49 | MHC.CM.PN ---
Pt has been medically cleared for DC, he will go home to his halfway via ambulance. All paperwork sent via email to Clementine Zhu, halfway nurse.
[2023-06-16 18:58] LABS: Levetiracetam Keppra 18.5 mcg/mL (6.0-46.0)
== END 2023-06-14 12:28 | disposition home or self-care (01) | DRG 720 ==
LOC: HO.ED 07:12 → HO.EDOVER 13:09 → HO.IMC 15:05 → HO.ICU 06-09 15:07 → HO.IMC 06-10 09:24
PROVIDERS: Emergency Medicine Emergency Medical Services; Internal Medicine Pulmonary Disease; Admitting Provider Physician Assistant; Emergency Provider Emergency Medicine; PCP Physician Assistant; Visit Provider Internal Medicine
DX: A41.9 Sepsis, unspecified organism (principal); J69.0 Pneumonitis due to inhalation of food and vomit; G93.41 Metabolic encephalopathy; G40.813 Lennox-Gastaut syndrome, intractable, with status epilepticus; E87.1 Hypo-osmolality and hyponatremia; B97.4 Respiratory syncytial virus as the cause of diseases classified elsewhere; E03.9 Hypothyroidism, unspecified; J06.9 Acute upper respiratory infection, unspecified; R13.10 Dysphagia, unspecified; G20.A1 Parkinson's disease without dyskinesia, without mention of fluctuations; F41.9 Anxiety disorder, unspecified; E78.5 Hyperlipidemia, unspecified; K59.09 Other constipation; Z20.822 Contact with and (suspected) exposure to COVID-19; Z79.82 Long term (current) use of aspirin; Z79.890 Hormone replacement therapy; Z79.899 Other long term (current) drug therapy
CPT/HCPCS: 36415; 70450; 71045; 71250; 74177; 80048; 80053; 80076; 80164; 80177; 81003; 82272; 82803; 83605; 83735; 83930; 83935; 84100; 84145; 84443; 85025; 87040; 87449; 87493; 87497; 87502; 87507; 87633; 87635; 87640; 87641; 87899; 92526; 92610; 99285; J0131; J0696; J1644; J1836; J1885; J1940; J1953; J1956; J2060; J2270; J2543; J2920; J3370; J3480; Q9967

== ENCOUNTER → 2023-06-08 12:59 | Outpatient (BNV) | payer OTHER, SELFPAY | PROVIDERS: Admitting Provider Physician Assistant; Emergency Provider Emergency Medicine; Visit Provider Internal Medicine Pulmonary Disease | DX: J69.0 Pneumonitis due to inhalation of food and vomit (principal); G40.813 Lennox-Gastaut syndrome, intractable, with status epilepticus; G20.A1 Parkinson's disease without dyskinesia, without mention of fluctuations | CPT/HCPCS: 99233; 99291 ==

== ENCOUNTER → 2023-06-08 12:59 | Outpatient (BNV) | payer OTHER, SELFPAY | PROVIDERS: Admitting Provider Physician Assistant; Emergency Provider Emergency Medicine; Visit Provider Internal Medicine | DX: G20.A1 Parkinson's disease without dyskinesia, without mention of fluctuations (principal); G40.813 Lennox-Gastaut syndrome, intractable, with status epilepticus; J69.0 Pneumonitis due to inhalation of food and vomit; R06.03 Acute respiratory distress; R56.9 Unspecified convulsions | CPT/HCPCS: 99222 ==

== ENCOUNTER → 2023-06-08 12:59 | Outpatient (BNV) | payer OTHER, SELFPAY | PROVIDERS: Admitting Provider Physician Assistant; Emergency Provider Emergency Medicine; Visit Provider Physician Assistant | DX: A41.9 Sepsis, unspecified organism (principal); J69.0 Pneumonitis due to inhalation of food and vomit; R56.9 Unspecified convulsions; J96.01 Acute respiratory failure with hypoxia; R50.9 Fever, unspecified; G93.41 Metabolic encephalopathy; E87.1 Hypo-osmolality and hyponatremia | CPT/HCPCS: 99223; 99231; 99232; 99233; 99239; 99499 ==

== ENCOUNTER 2023-12-16 23:46 | Inpatient (IN) | payer OTHER, SELFPAY ==
--- NOTE | ~2023-12-16 | CT_ITS ---
EXAMINATION: CT HEAD WITHOUT CONTRAST CLINICAL INFORMATION: Altered mental status. Seizures. COMPARISON: 06/08/2023 TECHNIQUE: Contiguous axial imaging was performed from the skull base to vertex without intravenous administration of contrast. This CT examination was performed using dose optimization techniques as appropriate, variously including the following: *Automated exposure control *Adjustment of mA and/or kV according to patient size (this includes techniques or standardized protocols for targeted exams where dose is matched to indication/reason for exam; i.e. extremities or head) *Use of iterative reconstruction technique DLP: 1753 mGy-cm FINDINGS: There is cerebral volume loss with prominence of the lateral and the third ventricles. The cortical sulci are widened appropriately. The fourth ventricle and basal cisterns are normally outlined. There is no acute territorial defect, hemorrhage or midline shift. The extra-axial spaces are unremarkable. Calvarium/scalp: Intact. Maxillofacial sinuses and mastoids: There is mucosal thickening of the right maxillary sinus. The remaining maxillofacial sinuses are clear. 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 CT/CT head/brain wo IV con IMPRESSION: No acute intracranial pathology.
--- NOTE | ~2023-12-16 | XR_ITS ---
EXAMINATION: XR CHEST CLINICAL INFORMATION: Cough. COMPARISON: 06/09/2023. TECHNIQUE: Frontal view of the chest was obtained. FINDINGS: The study is limited due to low lung volumes. Patient's chin overlies portions of the lung apices. The cardiomediastinal silhouette is stable. There is atelectatic change and/or scarring at the right lung base. Lungs are otherwise grossly clear. There are no significant pleural effusions. XR/XR chest 1V IMPRESSION: Limited study due to low lung volumes. Atelectasis and/or scarring at the right lung base. No other definite significant abnormality seen.
--- NOTE | 2023-12-16 23:52 | ECG_ITS ---
Test Reason : SEPSIS Blood Pressure : / mmHG Vent. Rate : 112 BPM Atrial Rate : 112 BPM P-R Int : 166 ms QRS Dur : 082 ms QT Int : 332 ms P-R-T Axes : 046 013 026 degrees QTc Int : 453 ms Sinus tachycardia Nonspecific T wave abnormality Abnormal ECG When compared with ECG of 01-APR-2023 10:33, No significant change was found Referred By: Generic ED Physician Electronically Signed By:Velasquez oFster
[2023-12-16 23:56] VITALS: BP 90/40; PULSE 126; O2SAT 91; BMI 25.1
[2023-12-16 23:59] VITALS: PULSE 133; RESP 22; O2SAT 94
[2023-12-17] VITALS (18 sets, daily range): BP systolic 100–140; BP diastolic 54–77; PULSE 90–122; RESP 12–30; TEMP 36.2–38.3; O2SAT 93–99; BMI 25.6
[2023-12-17] MEDS: 0.9 % Sodium Chloride 500 ML 999 ML IV (00:11)
--- NOTE | 2023-12-17 00:11 | ED_ITS ---
HPI - General Adult General Chief complaint: General Medical Stated complaint: sepsis? Time Seen by Provider: 12/17/23 00:09 Source: other ([employer]) Mode of arrival: EMS Limitations: altered mental status History of Present Illness ED Provider: jhon BAEZA narrative: Patient 58 years old nonverbal legally blind bed-bound from nursing home with history of epilepsy Parkinson disease CVA and recurrent aspiration pneumonia came here for decreased oral intake and fever 102 at nursing home also noted to have slight cough patient noted to have blood pressure of 90/40 after 500 cc of normal saline blood pressure improved to 102/41 patient was coughing in the ER Related Data Home Medications ?Medication ?Instructions ?Recorded ?Confirmed acetaminophen 325 mg tablet 650 mg PO Q6H PRN Fever Or Pain 04/01/23 06/08/23 aspirin 81 mg tablet,delayed 81 mg PO DAILY 04/01/23 06/08/23 release bacitracin 500 unit/gram eye 1 appl ophthalmic (eye) BID PRN 04/01/23 06/08/23 ointment wounds cholecalciferol (vitamin D3) 1,250 1,250 mcg PO WE 04/01/23 06/08/23 mcg (50,000 unit) capsule clonazepam 0.5 mg tablet 0.25 mg PO BID@0800,1200 04/01/23 06/08/23 clonazepam 0.5 mg tablet 0.5 mg PO BEDTIME 04/01/23 06/08/23 divalproex 125 mg capsule,delayed 500 mg PO TID 04/01/23 06/08/23 release sprinkle (Depakote Sprinkles) docusate sodium 100 mg capsule 100 mg PO BID@0800,2000 04/01/23 06/08/23 felbamate 400 mg tablet 800 mg PO TID 04/01/23 06/08/23 levetiracetam 500 mg tablet 1,000 mg PO TID 04/01/23 06/08/23 levothyroxine 88 mcg tablet 88 mcg PO DAILY 04/01/23 06/08/23 lorazepam 1 mg tablet 1 mg PO Q30M PRN Seizures 04/01/23 06/08/23 multivitamin with folic acid 400 1 tab PO QAM 04/01/23 06/08/23 mcg tablet (Thera) sertraline 50 mg tablet 50 mg PO BEDTIME 04/01/23 06/08/23 simvastatin 40 mg tablet 40 mg PO BEDTIME 04/01/23 06/08/23 zinc oxide 13 % topical cream 1 appl topical TID PRN Rash 04/01/23 06/08/23 (Desitin Daily Defense) bisacodyl 10 mg rectal suppository 10 mg MD DAILY PRN Constipation 06/08/23 06/08/23 (OneLAX Bisacodyl) guaifenesin 100 mg/5 mL oral liquid 200 mg PO Q6H PRN Cough 06/08/23 06/08/23 lamotrigine 25 mg tablet 12.5 mg PO QAM 06/08/23 06/08/23 magnesium hydroxide 400 mg/5 mL 30 ml PO Q OTHER DAY PRN 06/08/23 06/08/23 oral suspension (Milk of Magnesia) Constipation polyethylene glycol 3350 17 17 g PO QAM 06/08/23 06/08/23 gram/dose oral powder sodium phosphates 19 gram-7 118 ml MD DIRECTED PRN 06/08/23 06/08/23 gram/118 mL enema (Enema Constipation Disposable) white petrolatum-mineral oil 57.3 0.25 inch ophthalmic (eye) BEDTIME 06/08/23 06/08/23 %-42.5 % eye ointment (Refresh P.M.) Previous Rx's ?Medication ?Instructions ?Recorded amoxicillin 400 mg-potassium 10 ml PO BID #40 mL 06/14/23 clavulanate 57 mg/5 mL oral suspension Allergies Allergy/AdvReac Type Severity Reaction Status Date / Time erythromycin base Allergy Unknown HIVES Verified 12/17/23 00:01 [ERYTHROMYCIN BASE] gentamicin [GENTAMICIN] Allergy Unknown UNKNOWN Verified 12/17/23 00:01 Macrolide Antibiotics Allergy Unknown UNKNOWN Verified 12/17/23 00:01 [MACROLIDE ANTIBIOTICS] KETOLIDES Allergy Unknown UNKNOWN Uncoded 12/17/23 00:01 Review of Systems 2 Review of Systems: Yes all other systems are reviewed and are negative PMFSH Past Medical History Medical History Fever Epileptic seizure Depression Generalized anxiety disorder Ganglion cyst Aspiration pneumonia Parkinson disease Dysphagia Anxiety Constipation TIA (transient ischemic attack) Hyperlipidemia Glaucoma Hyperopia of left eye Proptosis Aphakia, both eyes Osteopenia Hypothyroidism Manjinder-Gastaut syndrome, intractable, with status epilepticus Social History Social History Household Members: Other Household Members Other:: other residents Housing: Other Housing Other:: nursing home Do you presently have visiting nurse or other home services: No Unable to assess alcohol history related to: Unknown Patient Tobacco Use Status: Never used Tobacco Smoked in Last 30 Days: No e-Cigarette/Vaping Use: Never Used Second Hand Smoke Exposure: No Use of substances other than those prescribed or required for medical reasons: No Currently Displaying Signs/Symptoms of Drug Intoxication Withdrawal: No Any prior treatment program specific to substance use: No Have you been hit, kicked, punched, or otherwise hurt by someone within the past year? If so, by whom?: No Advance Directives: No Advance Directives Information Provided: Yes Do you have a plan to hurt others: No Plan Nutrition Risks: On aspiration precautions Poor oral hygiene: Yes service: No Physical Exam ED Vital Signs: Vital Signs - 24 hr 12/16/23 23:59 12/17/23 00:07 12/17/23 00:07 Temperature 101.0 F H Pulse Rate 133 H 109 H 111 H Respiratory Rate 22 H 12 26 H Blood Pressure 110/54 L 110/54 L Pulse Oximetry 94 95 93 Oxygen Delivery Method High Flow Nasal Cannula Nasal Cannula Nasal Cannula with ETCO2 Oxygen Flow Rate 4 2 4 12/17/23 00:22 12/17/23 00:37 12/17/23 00:52 Temperature Pulse Rate 111 H 109 H 107 H Respiratory Rate 16 17 17 Blood Pressure 100/57 L 110/63 117/67 Pulse Oximetry 99 96 Oxygen Delivery Method Nasal Cannula with ETCO2 Nasal Cannula with ETCO2 Oxygen Flow Rate 4 4 12/17/23 00:54 12/17/23 00:55 12/17/23 01:05 Temperature Pulse Rate 112 H 122 H 121 H Respiratory Rate 23 H 27 H 24 H Blood Pressure 113/74 120/77 Pulse Oximetry 94 96 98 Oxygen Delivery Method Nasal Cannula with ETCO2 Nasal Cannula with ETCO2 Room Air Oxygen Flow Rate 4 4 12/17/23 01:07 12/17/23 01:07 12/17/23 01:37 Temperature 99.3 F 99.3 F Pulse Rate 114 H 114 H 108 H Respiratory Rate 30 H 30 H 24 H Blood Pressure 130/76 130/76 112/66 Pulse Oximetry 98 98 99 Oxygen Delivery Method Nasal Cannula with ETCO2 Nasal Cannula with ETCO2 Nasal Cannula with ETCO2 Oxygen Flow Rate 4 4 4 12/17/23 01:52 12/17/23 02:04 Temperature 99.2 F Pulse Rate 104 H 113 H Respiratory Rate 23 H 16 Blood Pressure 117/66 118/63 Pulse Oximetry 99 98 Oxygen Delivery Method Room Air Room Air Oxygen Flow Rate BMI result Body Mass Index 25.1 Appearance: Alert. Coughing frequently Eyes: Legally blind ENT: Pharynx normal. Oral Mucosa moist Neck: Normal inspection. Neck supple. CVS: Normal heart rate and rhythm. Pulses normal. Respiratory: No respiratory distress. Equal air entry bilateral, bilateral conducted sound+ Abdomen: Soft and nontender. Bowel sounds are present, no mass palpable, no CVA tenderness Skin: Skin warm and dry. Normal skin color. Normal skin turgor. Extremities: No lower extremity edema. No calf tenderness Neuro: Nonverbal demented in contacted posture Course Reevaluation(s) Reevaluation #1: Patient had short lasting seizure-like activity about 13 times lasting for few seconds with eyes up rolling and post postictal obtundation and heavy breathing. Patient is on multiple high dose antiseizure medications Keppra Depakote Lamictal and felbamate. And p.r.n. intranasal Versed for seizure patient was given 2 mg of Versed in the ER will give 500 mg of Keppra extra Time: 01:08 Medications Administered Discontinued Medications Generic Name Dose Route Start Last Admin Trade Name Freq PRN Reason Stop Dose Admin Sodium Chloride 500 mls @ 999 mls/hr 12/16/23 23:45 12/17/23 00:22 Ns IV 12/17/23 00:15 Infused .Q31M MEETA Infusion Sodium Chloride 2,600 mls @ 2,600 mls/hr 12/17/23 00:13 12/17/23 00:37 Ns IV 12/17/23 01:12 Not Given .Q1H STA Ceftriaxone Sodium 1 gm/ 50 mls @ 100 mls/hr 12/17/23 00:15 12/17/23 00:50 Sodium Chloride IV 12/17/23 00:44 Infused ONCE ONE Infusion Sodium Chloride 2,600 mls @ 866.6666 mls/hr 12/17/23 00:16 12/17/23 02:22 Ns IV 12/17/23 03:12 Infused .Q3H STA Infusion Levetiracetam 500 mg in 100 mls @ 400 mls/hr 12/17/23 01:07 12/17/23 01:25 Keppra IV 12/17/23 01:21 Infused ONCE ONE Infusion Midazolam HCl 2 mg 12/17/23 00:52 12/17/23 00:55 Midazolam Hcl/Pf 2 Mg/2 Ml Vial IVPUSH 12/17/23 00:53 2 mg ONCE ONE Administration Medical Decision Making Medical Decision Making MDM Narrative: Patient 58 years old nonverbal legally blind bed-bound from nursing home with history of epilepsy Parkinson disease CVA and recurrent aspiration pneumonia came here for decreased oral intake and fever 102 workup in the ED showed urinary tract infection with nitrite positive started on Rocephin also noted to have multiple small seizures in the ER responded to Versed and [place] will admit patient for IV antibiotic for UTI, sepsis, metabolic encephalopathy Differential Diagnosis Differential Diagnoses: The differential diagnosis associated with the presentation includes UTI/pneumonia/atypical infection/metabolic encephalopathy/bacteremia Admission/Observation Consideration of admission/observation: Escalation of care including admission/observation considered Consult Healthcare Provider Management of the patient was discussed with: Hospitalist Lab Data [facility] Lab Attestation statement: I reviewed the patient's lab results. 12/17/23 05:10 12/17/23 05:10 Labs: Lab Results 12/17/23 12/17/23 12/17/23 Range/Units 00:13 00:15 00:27 WBC 11.7 H (4.8-10.8) X10*3/uL RBC 4.62 D (4.60-5.80) X10*6/uL Hgb 13.6 L D (14.0-18.0) g/dl Hct 38.8 L D (42.0-52.0) % MCV 84.0 (80.0-98.0) fL MCH 29.4 (27.0-33.0) pg MCHC 35.1 (31.0-36.0) g/dl RDW 13.3 (11.0-16.0) % Plt Count 202 (160-400) X10*3/uL MPV 9.3 L (9.4-12.4) fL Immature Gran % (Auto) 0.3 (0.0-0.4) % Neut % (Auto) 82.5 H (45-73) % Lymph % (Auto) 6.1 L (20-40) % [place] % (Auto) 11.0 (2-11) % Eos % (Auto) 0.0 (0-4) % Baso % (Auto) 0.1 (0-2) % Lymph # (Auto) 0.7 L (1.2-4.9) X10*3/uL [place] # (Auto) 1.3 H (0.1-1.2) X10*3/uL Eos # (Auto) 0.0 (0.0-0.4) X10*3/uL Baso # (Auto) 0.0 (0.0-0.2) X10*3/uL Abs Immat Gran (auto) 0.04 H (0.00-0.03) X10*3/uL Absolute Neuts (auto) 9.7 H (2.0-8.3) x10*3/uL Absolute Nucleated RBC 0.000 (0.0-0.012) X10*3/uL Nucleated RBC % (auto) 0.0 (0.0-0.2) /100WBC Sodium 134 L (135-145) mmol/L Potassium 3.9 (3.3-5.1) mmol/L Chloride 99 (96-108) mmol/L Carbon Dioxide 27 (22-29) mmol/L Anion Gap 12 (12-20) BUN 10 (9-16) mg/dL Creatinine 0.62 (0.5-1.4) mg/dL Estim Creat Clear Calc 142.5 Estimated GFR > 60 Random Glucose 131 H (60-115) mg/dL Lactic Acid 1.4 (0.5-2.0) mmol/L Calcium 9.2 D (8.4-10.2) mg/dL Total Bilirubin 0.3 (0.0-1.0) mg/dL AST 15 (5-37) U/L ALT 10 (0-40) U/L Alkaline Phosphatase 39 (39-117) U/L Total Protein 6.6 (6.5-8.0) g/dL Albumin 3.7 (3.5-5.0) g/dL Urine Color Urine Appearance Urine pH (5.0-9.0) Ur Specific [place] (1.005-1.025) Urine Protein (Neg-Trace) mg/dL Urine Glucose (UA) (Negative) mg/dL Urine Ketones (Negative) mg/dL Urine Blood (Negative) Urine Nitrite (Negative) Ur Leukocyte Esterase (Negative) Urine RBC (0-2) /HPF Urine WBC (0-5) /HPF Ur Squamous Epith Cells (0-2) /HPF Urine Bacteria (None Seen) Hyaline Casts (0-2) /LPF Influenza Type A (PCR) NEGATIVE (Negative) Influenza Type B (PCR) NEGATIVE (Negative) RSV RNA Qual (PCR) NEGATIVE (Negative) SARS-CoV-2 RNA (RT-PCR) NEGATIVE (Negative) 12/17/23 Range/Units 00:51 WBC (4.8-10.8) X10*3/uL RBC (4.60-5.80) X10*6/uL Hgb (14.0-18.0) g/dl Hct (42.0-52.0) % MCV (80.0-98.0) fL MCH (27.0-33.0) pg MCHC (31.0-36.0) g/dl RDW (11.0-16.0) % Plt Count (160-400) X10*3/uL MPV (9.4-12.4) fL Immature Gran % (Auto) (0.0-0.4) % Neut % (Auto) (45-73) % Lymph % (Auto) (20-40) % [place] % (Auto) (2-11) % Eos % (Auto) (0-4) % Baso % (Auto) (0-2) % Lymph # (Auto) (1.2-4.9) X10*3/uL [place] # (Auto) (0.1-1.2) X10*3/uL Eos # (Auto) (0.0-0.4) X10*3/uL Baso # (Auto) (0.0-0.2) X10*3/uL Abs Immat Gran (auto) (0.00-0.03) X10*3/uL Absolute Neuts (auto) (2.0-8.3) x10*3/uL Absolute Nucleated RBC (0.0-0.012) X10*3/uL Nucleated RBC % (auto) (0.0-0.2) /100WBC Sodium (135-145) mmol/L Potassium (3.3-5.1) mmol/L Chloride (96-108) mmol/L Carbon Dioxide (22-29) mmol/L Anion Gap (12-20) BUN (9-16) mg/dL Creatinine (0.5-1.4) mg/dL Estim Creat Clear Calc Estimated GFR Random Glucose (60-115) mg/dL Lactic Acid (0.5-2.0) mmol/L Calcium (8.4-10.2) mg/dL Total Bilirubin (0.0-1.0) mg/dL AST (5-37) U/L ALT (0-40) U/L Alkaline Phosphatase (39-117) U/L Total Protein (6.5-8.0) g/dL Albumin (3.5-5.0) g/dL Urine Color Yellow Urine Appearance Clear Urine pH 8.0 (5.0-9.0) Ur Specific [place] 1.010 (1.005-1.025) Urine Protein Negative (Neg-Trace) mg/dL Urine Glucose (UA) Negative (Negative) mg/dL Urine Ketones Negative (Negative) mg/dL Urine Blood Small (1+) H (Negative) Urine Nitrite Positive H (Negative) Ur Leukocyte Esterase Moderate (2+) H (Negative) Urine RBC 6-10 H (0-2) /HPF Urine WBC >50 H (0-5) /HPF Ur Squamous Epith Cells 0-2 (0-2) /HPF Urine Bacteria 4+ (None Seen) Hyaline Casts 0-2 (0-2) /LPF Influenza Type A (PCR) (Negative) Influenza Type B (PCR) (Negative) RSV RNA Qual (PCR) (Negative) SARS-CoV-2 RNA (RT-PCR) (Negative) Independent Interpretation I performed an independent interpretation of an: Plain X-Ray and CT Scan Radiology Impression Discussion of test interpretation with radiology: I have reviewed the radiologist's reading. External Record Review External record reviewed: Primary care record and Other Critical Care Time Critical Care Time Critical Care Time: Yes Total Critical Care Time: 55 Attestation: The patient was critically ill with a high probability of imminent or life threatening deterioration. I spent greater than 60???minutes of discontinuous time evaluating the patient,delivering critical care at the bedside, discussing and evaluating pertinent data with consultants. Critical care time does not include time spent performing separately billable procedures or teaching. Total time spent performing critical care was ?55??minutes. Discharge Plan Discharge Clinical Impression: Acute UTI, Seizures, Acute metabolic encephalopathy Patient Disposition: Admitted As Inpatient Interventions: Admission Worksheet (ED) Last Done: 12/17/23 03:39 Discharge Date/Time: 12/17/23 04:36
[2023-12-17] MEDS: cefTRIAXone sodium 1 GM in 0.9 % Sodium Chloride 50 ML IV (00:20)
[2023-12-17 00:21] LABS: MANUAL DIFF FLAG NO
[2023-12-17] MEDS: 0.9 % Sodium Chloride 2,600 ML 866.67 ML IV (00:22)
[2023-12-17 00:24] LABS: Basophils Percent Auto 0.1 % (0-2); Hematocrit 38.8 % (42.0-52.0); Hemoglobin 13.6 g/dl (14.0-18.0); Imm Gran Abs Auto 0.04 X10*3/uL (0.00-0.03); Imm Gran Pct Auto 0.3 % (0.0-0.4); Lymphocytes Absolute Auto 0.7 X10*3/uL (1.2-4.9); Lymphocytes Percent Auto 6.1 % (20-40); Mean Corpuscular HGB Conc 35.1 g/dl (31.0-36.0); Mean Corpuscular Hemoglobin 29.4 pg (27.0-33.0); Mean Platelet Volume 9.3 fL (9.4-12.4); Monocytes Absolute Auto 1.3 X10*3/uL (0.1-1.2); Neutrophils Absolute Auto 9.7 x10*3/uL (2.0-8.3); Neutrophils Percent Auto 82.5 % (45-73); Platelet Count 202 X10*3/uL (160-400); Red Blood Count 4.62 X10*6/uL (4.60-5.80); Red Cell Distribution Width 13.3 % (11.0-16.0); White Blood Count 11.7 X10*3/uL (4.8-10.8)
[2023-12-17 00:42] LABS: Alanine Aminotransferase 10 U/L (0-40); Albumin Level 3.7 g/dL (3.5-5.0); Alkaline Phosphatase 39 U/L (39-117); Anion Gap 12 (12-20); Aspartate Amino Transferase 15 U/L (5-37); Bilirubin Total 0.3 mg/dL (0.0-1.0); Blood Urea Nitrogen 10 mg/dL (9-16); Calcium 9.2 mg/dL (8.4-10.2); Carbon Dioxide 27 mmol/L (22-29); Chloride 99 mmol/L (96-108); Creatinine Clr Calc Pharmacy 142.5; Estimated Glomerular Filt Rate > 60; Glucose Random 131 mg/dL (60-115); Potassium 3.9 mmol/L (3.3-5.1); Sodium 134 mmol/L (135-145); Total Protein 6.6 g/dL (6.5-8.0)
[2023-12-17 00:43] LABS: Lactic Acid 1.4 mmol/L (0.5-2.0)
[2023-12-17] MEDS: Midazolam HCl/PF 2 MG/2 ML VIAL IVPUSH (00:55)
[2023-12-17 01:01] LABS: Appearance Urine Clear; Color Urine Yellow; Glucose Urine UA Negative (Negative); Leukocyte Esterase Urine Moderate (2+) (Negative); Nitrite Urine Positive (Negative); UMIC TRIGGER UACC YES; Urine Blood Small (1+) (Negative); Urine Ketones Negative (Negative); Urine Protein Negative (Neg-Trace)
[2023-12-17 01:06] LABS: Bacteria Urine 4+ (None Seen); Hyaline Casts Urine 0-2 /LPF (0-2); Squamous Epithelial Cell Urine 0-2 /HPF (0-2); UACC Culture Trigger YES; WBC Urine >50 /HPF (0-5)
[2023-12-17 01:07] LABS: Influenza A PCR NEGATIVE (Negative); Influenza B PCR NEGATIVE (Negative); Resp Syncy Virus RNA Qual PCR NEGATIVE (Negative); SARS COV2 PCR INHOUSE NEGATIVE (Negative)
[2023-12-17] MEDS: levETIRAcetam in NaCl (iso-os) 500 MG/100 ML PIGGYBACK 400 MG IV (01:10)
--- NOTE | 2023-12-17 01:33 | PC.NURSE ---
Pt arrives from [facility]term. [facility] staff at bedside. Pt meets septic criteria. Fluids and ab administered. Condom cath placed for urine collection. Pt then began to have multiple absence seizures that lasted 2 to 5 seconds. Pt then became postictal and tachypneic. MD and RT at bedside. Versed and Keppra administered as ordered. Seizure precautions in place. Monitoring is ongoing.
--- NOTE | 2023-12-17 02:25 | P.HPHOSP_ITS ---
History of Present Illness Date of Service: 12/17/23 Chief Complaint: Fever This is a 58 year old male with pertinent history of epilepsy with nikita- gastaut syndrome, hypothyroidism, history of CVA, dysphagia, history of aspiration pneumonia, mood disorder, Parkinson's disease, mixed hyperlipidemia, aphakia who was sent to the emergency department from long-term for evaluation of fevers. Unable to obtain history from the patient. 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 Patient was running fever up to 101 degree F not resolved with Tylenol and hence he brought to the ER. Also decreased p.o. intake and lethargy. Patient is nonverbal at baseline. In the emergency department, patient was noted to have multiple episodes of non tonic-clonic seizures and was given IV Versed. Patient received all evening doses of antiepileptics prior to coming to the ER as per the geophysical prospecting surveyor. Unable to obtain review of systems. Review of Systems 2 Review of Systems: Yes Unobtainable due to mental condition and Unobtainable due to mental status [facility] Medical History Fever Epileptic seizure Depression Generalized anxiety disorder Ganglion cyst Aspiration pneumonia Parkinson disease Dysphagia Anxiety Constipation TIA (transient ischemic attack) Hyperlipidemia Glaucoma Hyperopia of left eye Proptosis Aphakia, both eyes Osteopenia Hypothyroidism Nikita-Gastaut syndrome, intractable, with status epilepticus Social History Household Members: Other Household Members Other:: other residents Housing: Other Housing Other:: long-term Do you presently have visiting nurse or other home services: Yes Unable to assess alcohol history related to: Unknown Patient Tobacco Use Status: Never used Tobacco Smoked in Last 30 Days: No Use of substances other than those prescribed or required for medical reasons: No Advance Directives: No Advance Directives Information Provided: Yes Do you have a plan to hurt others: No Plan service: No Meds Allergies Allergy/AdvReac Type Severity Reaction Status Date / Time erythromycin base Allergy Unknown HIVES Verified 12/17/23 00:01 [ERYTHROMYCIN BASE] gentamicin [GENTAMICIN] Allergy Unknown UNKNOWN Verified 12/17/23 00:01 Macrolide Antibiotics Allergy Unknown UNKNOWN Verified 12/17/23 00:01 [MACROLIDE ANTIBIOTICS] KETOLIDES Allergy Unknown UNKNOWN Uncoded 12/17/23 00:01 Active Medications: Current Medications Sodium Chloride (Ns) 2,600 mls @ 866.6666 mls/hr IV .Q3H STA Stop: 12/17/23 03:12 Last Infusion: 12/17/23 02:22 Dose: Infused Home Medications ?Medication ?Instructions ?Recorded ?Confirmed ?Last Taken ?Type acetaminophen 325 mg tablet 650 mg PO Q6H PRN Fever Or Pain 04/01/23 06/08/23 Unknown History aspirin 81 mg tablet,delayed 81 mg PO DAILY 04/01/23 06/08/23 Unknown History release bacitracin 500 unit/gram eye 1 appl ophthalmic (eye) BID PRN 04/01/23 06/08/23 Unknown History ointment wounds cholecalciferol (vitamin D3) 1,250 1,250 mcg PO WE 04/01/23 06/08/23 Unknown History mcg (50,000 unit) capsule clonazepam 0.5 mg tablet 0.25 mg PO BID@0800,1200 04/01/23 06/08/23 Unknown History clonazepam 0.5 mg tablet 0.5 mg PO BEDTIME 04/01/23 06/08/23 Unknown History divalproex 125 mg capsule,delayed 500 mg PO TID 04/01/23 06/08/23 Unknown History release sprinkle (Depakote Sprinkles) docusate sodium 100 mg capsule 100 mg PO BID@0800,2000 04/01/23 06/08/23 Unknown History felbamate 400 mg tablet 800 mg PO TID 04/01/23 06/08/23 Unknown History levetiracetam 500 mg tablet 1,000 mg PO TID 04/01/23 06/08/23 Unknown History levothyroxine 88 mcg tablet 88 mcg PO DAILY 04/01/23 06/08/23 Unknown History lorazepam 1 mg tablet 1 mg PO Q30M PRN Seizures 04/01/23 06/08/23 Unknown History multivitamin with folic acid 400 1 tab PO QAM 04/01/23 06/08/23 Unknown History mcg tablet (Thera) sertraline 50 mg tablet 50 mg PO BEDTIME 04/01/23 06/08/23 Unknown History simvastatin 40 mg tablet 40 mg PO BEDTIME 04/01/23 06/08/23 Unknown History zinc oxide 13 % topical cream 1 appl topical TID PRN Rash 04/01/23 06/08/23 Unknown History (Desitin Daily Defense) bisacodyl 10 mg rectal suppository 10 mg PA DAILY PRN Constipation 06/08/23 06/08/23 Unknown History (OneLAX Bisacodyl) guaifenesin 100 mg/5 mL oral liquid 200 mg PO Q6H PRN Cough 06/08/23 06/08/23 Unknown History lamotrigine 25 mg tablet 12.5 mg PO QAM 06/08/23 06/08/23 Unknown History magnesium hydroxide 400 mg/5 mL 30 ml PO Q OTHER DAY PRN 06/08/23 06/08/23 Unknown History oral suspension (Milk of Magnesia) Constipation polyethylene glycol 3350 17 17 g PO QAM 06/08/23 06/08/23 Unknown History gram/dose oral powder sodium phosphates 19 gram-7 118 ml PA DIRECTED PRN 06/08/23 06/08/23 Unknown History gram/118 mL enema (Enema Constipation Disposable) white petrolatum-mineral oil 57.3 0.25 inch ophthalmic (eye) BEDTIME 06/08/23 06/08/23 Unknown History %-42.5 % eye ointment (Refresh P.M.) Physical Exam 2 Vital Signs and Narrative: Vital Signs: Last Vital Signs Temp 99.2 F 12/17/23 02:04 Pulse 121 H 12/17/23 02:06 Resp 24 H 12/17/23 02:06 BP 120/77 12/17/23 02:06 Pulse Ox 98 12/17/23 02:06 O2 Del Method Room Air 12/17/23 02:06 O2 Flow Rate 4 12/17/23 02:03 BMI result Body Mass Index 25.1 Middle-aged male lying in bed in no distress Neck supple, no JVD, aphakia + Regular rate and rhythm, S1-S2 heard Decreased breath sounds Abdomen soft nontender, no guarding, no rigidity Patient is drowsy and nonverbal, unable to assess orientation, not following commands Psych: Lethargic Results Labs 12/17/23 00:15 12/17/23 00:13 Labs: Laboratory Results - last 24 hr 12/17/23 12/17/23 12/17/23 00:13 00:15 00:27 MCV 84.0 MCH 29.4 MCHC 35.1 RDW 13.3 Plt Count 202 MPV 9.3 L Immature Gran % (Auto) 0.3 Neut % (Auto) 82.5 H Lymph % (Auto) 6.1 L [place] % (Auto) 11.0 Eos % (Auto) 0.0 Baso % (Auto) 0.1 Lymph # (Auto) 0.7 L [place] # (Auto) 1.3 H Eos # (Auto) 0.0 Baso # (Auto) 0.0 Abs Immat Gran (auto) 0.04 H Absolute Neuts (auto) 9.7 H Absolute Nucleated RBC 0.000 Nucleated RBC % (auto) 0.0 Anion Gap 12 Estim Creat Clear Calc 142.5 Estimated GFR > 60 Random Glucose 131 H Lactic Acid 1.4 Calcium 9.2 D Total Bilirubin 0.3 AST 15 ALT 10 Alkaline Phosphatase 39 Total Protein 6.6 Albumin 3.7 Urine Color Urine Appearance Urine pH Ur Specific [place] Urine Protein Urine Glucose (UA) Urine Ketones Urine Blood Urine Nitrite Ur Leukocyte Esterase Urine RBC Urine WBC Ur Squamous Epith Cells Urine Bacteria Hyaline Casts Influenza Type A (PCR) NEGATIVE Influenza Type B (PCR) NEGATIVE RSV RNA Qual (PCR) NEGATIVE SARS-CoV-2 RNA (RT-PCR) NEGATIVE 12/17/23 00:51 MCV MCH MCHC RDW Plt Count MPV Immature Gran % (Auto) Neut % (Auto) Lymph % (Auto) [place] % (Auto) Eos % (Auto) Baso % (Auto) Lymph # (Auto) [place] # (Auto) Eos # (Auto) Baso # (Auto) Abs Immat Gran (auto) Absolute Neuts (auto) Absolute Nucleated RBC Nucleated RBC % (auto) Anion Gap Estim Creat Clear Calc Estimated GFR Random Glucose Lactic Acid Calcium Total Bilirubin AST ALT Alkaline Phosphatase Total Protein Albumin Urine Color Yellow Urine Appearance Clear Urine pH 8.0 Ur Specific [place] 1.010 Urine Protein Negative Urine Glucose (UA) Negative Urine Ketones Negative Urine Blood Small (1+) H Urine Nitrite Positive H Ur Leukocyte Esterase Moderate (2+) H Urine RBC 6-10 H Urine WBC >50 H Ur Squamous Epith Cells 0-2 Urine Bacteria 4+ Hyaline Casts 0-2 Influenza Type A (PCR) Influenza Type B (PCR) RSV RNA Qual (PCR) SARS-CoV-2 RNA (RT-PCR) Imaging Radiologist's Impressions: Impressions Chest X-Ray 12/17/23 00:34 IMPRESSION: Limited study due to low lung volumes. Atelectasis and/or scarring at the right lung base. No other definite significant abnormality seen. Assessment and Plan (1) Acute UTI: Status: Acute (2) Seizures: Status: Acute Plan This is a 58 year old male with pertinent history of epilepsy with nikita- gastaut syndrome, hypothyroidism, history of CVA, dysphagia, history of aspiration pneumonia, mood disorder, Parkinson's disease, mixed hyperlipidemia who was sent to the emergency department from long-term for evaluation of fevers. #. Sepsis and Acute metabolic encephalopathy in the setting of acute UTI: Resuscitated with IV crystalloids. Lactic acid and blood culture obtained. Initiated IV Rocephin. Monitor mentation. Will keep NPO until mentation improves. Is on pureed diet at long-term. Follow urine culture #. Breakthrough seizures in a patient with Epilepsy: On Keppra, felbamate, lamotrigine and divalproex. Consulted Neurology #. Hypothyroidism: On Synthroid #. Mood disorder: Continue home mood stabilizers once able #. History of CVA: On aspirin and statin Med rec pending DVT prophylaxis: Lovenox Full code Admit as inpatient and will require two night minimum hospital stay for IV antibiotics, monitoring mentation and hemodynamics (as above), which is not possible in a lesser acute setting. Quality Stroke Does the patient have a stroke diagnosis?: No VTE Prior VTE?: No VTE Risk Level:: Medical - moderate - high VTE Device Contraindication: Treatment Not Indicated VTE Drug Contraindication: N/A - Med Ordered
[2023-12-17 06:01] LABS: MANUAL DIFF FLAG NO
[2023-12-17 06:19] LABS: Basophils Percent Auto 0.2 % (0-2); Hemoglobin 12.5 g/dl (14.0-18.0); Imm Gran Abs Auto 0.14 X10*3/uL (0.00-0.03); Lymphocytes Absolute Auto 0.9 X10*3/uL (1.2-4.9); Lymphocytes Percent Auto 5.9 % (20-40); Mean Corpuscular HGB Conc 34.7 g/dl (31.0-36.0); Mean Corpuscular Hemoglobin 29.6 pg (27.0-33.0); Mean Corpuscular Volume 85.3 fL (80.0-98.0); Mean Platelet Volume 10.1 fL (9.4-12.4); Monocytes Absolute Auto 1.4 X10*3/uL (0.1-1.2); Monocytes Percent Auto 9.4 % (2-11); Neutrophils Percent Auto 83.5 % (45-73); Platelet Count 222 X10*3/uL (160-400); Red Blood Count 4.22 X10*6/uL (4.60-5.80); Red Cell Distribution Width 13.5 % (11.0-16.0); White Blood Count 14.3 X10*3/uL (4.8-10.8)
[2023-12-17 06:23] LABS: Anion Gap 11 (12-20); Blood Urea Nitrogen 7 mg/dL (9-16); Calcium 8.7 mg/dL (8.4-10.2); Carbon Dioxide 26 mmol/L (22-29); Chloride 101 mmol/L (96-108); Creatinine Clr Calc Pharmacy 163.6; Estimated Glomerular Filt Rate > 60; Glucose Random 95 mg/dL (60-115); Potassium 3.6 mmol/L (3.3-5.1); Sodium 134 mmol/L (135-145)
--- NOTE | 2023-12-17 09:04 | PHA.MEDREC ---
Pharmacy Consult ? Medication Reconciliation Pharmacy has completed the medication reconciliation. Utilized med list from [facility].
[2023-12-17] MEDS: Enoxaparin Sodium 40 MG/0.4 ML SYRINGE SUBCUT (09:29)
[2023-12-17] MEDS: 0.9 % Sodium Chloride Flush 3 ML SYRINGE IVFLUSH ×2 (09:30→20:56)
--- NOTE | 2023-12-17 11:16 | PM.EVENT ---
Event Note Date of Service: 12/17/23 Event Note: Patient seen and examined, med rec reviewed and complieted. He is non-verbal with seizure d/o and gets frequent seizures. 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 Copntinue these meds, Consulted Neurology, valium PRN for more seizures. cardiac monitoring Hypothyroidism: On Synthroid Mood disorder: Continue home mood stabilizers once able History of CVA: On aspirin and statin DVT prophylaxis: Lovenoteddy Full code Admit as inpatient and will require two night minimum hospital stay for IV antibiotics, monitoring mentation and hemodynamics (as above), which is not possible in a lesser acute setting. Time Spent With Patient Time: Total time managing care of this patient today ____ minutes.
[2023-12-17] MEDS: Aspirin 81 MG TAB.CHEW PO (11:44)
[2023-12-17] MEDS: lamoTRIgine 25 MG TABLET 12.5 MG PO (11:44)
[2023-12-17] MEDS: Levothyroxine Sodium 88 MCG TABLET PO (11:44)
[2023-12-17] MEDS: clonazePAM 0.5 MG TABLET 0.25 MG PO (11:44)
[2023-12-17] MEDS: levETIRAcetam 1,000 MG TABLET 1000 MG PO (11:44)
[2023-12-17] MEDS: Acetaminophen 325 MG TABLET 650 MG PO (11:44)
[2023-12-17] MEDS: Divalproex Sodium Sprinkles 125 MG CAP.DR.SPR 500 MG PO ×3 (11:45→20:44)
--- NOTE | 2023-12-17 13:19 | MHC.CM.PN ---
Patient from [facility]. Guardianship on file, Clementine Antunez listed as guardian. LM for Clementine @ [phone] to inform of admission to [facility] [place]. Also LM for [facility] nurse, Nancy, to complete COLLATERAL ANALYST and obtain paperwork. Per chart review, patient is dependent for care. Dulce Maria lift transfer from bed to chair. Does not ambulate. PCP Julissa NEGRETE DP: Return to [facility] when medically cleared via BLS. CM will continue to follow. [facility] # [phone] [facility] RN Nancy # [phone]
--- NOTE | 2023-12-17 13:20 | MHC.SL.SWA ---
Speech Pathologist Impression: Risk of Aspiration Due to: Lethargy Medically Fragile Neurological Condition Reduced Cognition Dysphasia Diet Status: Liquid Consistency and Strategies for Safe Swallow: Liquid Intake Recommendation: Thin Liquid Intake Strategies: Small Sips No Straws Solid Food Consistency: Dietary Recommendations: Pureed (NDD1) Additional Modifications to Solid Foods: Recommending UPGRADE to PUREE SOLIDS (NDD1) and THIN LIQUIDS. MEDS CRUSHED in PUREE. 1:1 ASSIST at this time. NO STRAWS. Oral Medication Intake: Crushed with Puree Please contact the pharmacy regarding appropriate crushable or liquid drug formulations that are available whenever modified delivery is recommended. Compensatory Strategies and Precautions to be Taken for Safe Swallow: Sitting Upright (90 deg) No Straw Liquids from Cup Small Bites and Sips Alternate Liquids/Solids Rate of Ingestion Change Oral Check Avoid Specific Foods Supervision While Eating and Drinking for Safe Swallow: Total Assistance (1:1) Plastic Technician Clinican/Clinical Fellow: No Supervisory Statement: I have reviewed and agree with the student/clinical fellow's documentation: N/A Speech Language Pathologist: Ryne Damon M.A., CCC-BRUSH FINISHER
[2023-12-17] MEDS: polyethylene glycoL 3350 17 GM POWD.PACK PO (13:36)
[2023-12-17] MEDS: Milk of Magnesia 30 ML ORAL.SUSP PO (13:36)
[2023-12-17] MEDS: levETIRAcetam Oral Soln 500 MG/5 ML 1000 MG PO ×2 (16:43→20:44)
--- NOTE | 2023-12-17 16:44 | PM.NEUROCN ---
History of Present Illness Data of Consult Service Date: 12/17/23 Primary Care Provider: Unknown Physician HPI This is a 58 year old male resident of a shelter with history of epilepsy with Nikita-Gastaut syndrome, hypothyroidism, history of CVA, dysphagia, h/o aspiration pneumonia, mood disorder, Parkinson's disease, mixed hyperlipidemia, aphakia who was sent to the emergency department from shelter for evaluation of fevers of 101. Unable to obtain history from the patient. History obtained from shelter filter press operator. Also decreased p.o. intake and lethargy. Patient is nonverbal at baseline. In the emergency department, patient was noted to have multiple episodes of non tonic-clonic seizures and was given IV Versed. Patient received all evening doses of antiepileptics prior to coming to the ER as per the filter press operator Review of Systems Review of Systems: Yes all other systems are reviewed and are negative, Unobtainable due to mental condition and Unobtainable due to mental status PMFSH Past Medical History Medical History Fever Epileptic seizure Depression Generalized anxiety disorder Ganglion cyst Aspiration pneumonia Parkinson disease Dysphagia Anxiety Constipation TIA (transient ischemic attack) Hyperlipidemia Glaucoma Hyperopia of left eye Proptosis Aphakia, both eyes Osteopenia Hypothyroidism Batson-Gastaut syndrome, intractable, with status epilepticus Social History Social History Household Members: Other Household Members Other:: other residents Housing: Other Housing Other:: shelter Do you presently have visiting nurse or other home services: No Unable to assess alcohol history related to: Unknown Patient Tobacco Use Status: Never used Tobacco Smoked in Last 30 Days: No e-Cigarette/Vaping Use: Never Used Second Hand Smoke Exposure: No Use of substances other than those prescribed or required for medical reasons: No Currently Displaying Signs/Symptoms of Drug Intoxication Withdrawal: No Any prior treatment program specific to substance use: No Have you been hit, kicked, punched, or otherwise hurt by someone within the past year? If so, by whom?: No Advance Directives: No Advance Directives Information Provided: Yes Do you have a plan to hurt others: No Plan Nutrition Risks: On aspiration precautions Poor oral hygiene: Yes service: No Meds Allergies Allergy/AdvReac Type Severity Reaction Status Date / Time erythromycin base Allergy Unknown HIVES Verified 12/17/23 00:01 [ERYTHROMYCIN BASE] gentamicin [GENTAMICIN] Allergy Unknown UNKNOWN Verified 12/17/23 00:01 Macrolide Antibiotics Allergy Unknown UNKNOWN Verified 12/17/23 00:01 [MACROLIDE ANTIBIOTICS] KETOLIDES Allergy Unknown UNKNOWN Uncoded 12/17/23 00:01 Active Medications: Current Medications Acetaminophen (Acetaminophen 325 Mg Tablet) 650 mg PO Q6H PRN PRN Reason: Pain, Mild (Pain Scale 1-3), fever or headache Last Admin: 12/17/23 11:44 Dose: 650 mg Acetaminophen (Acetaminophen 325 Mg Tablet) 650 mg PO Q6H PRN PRN Reason: Fever Or Pain Aspirin (Aspirin 81 Mg Tab.Chew) 81 mg PO DAILY [facility] Last Admin: 12/17/23 11:44 Dose: 81 mg Atorvastatin Calcium (Atorvastatin Calcium 20 Mg Tablet) 20 mg PO BEDTIME [facility] Bacitracin (Bacitracin Oint 14 Gm Tube) 1 appl TOPICAL BID PRN; Protocol PRN Reason: wounds Bisacodyl (Bisacodyl 10 Mg Supp.Rect) 10 mg NC DAILY PRN PRN Reason: Constipation Calcium Carbonate (Calcium Carbonate 750 Mg Tab.Chew) 750 mg PO Q4H PRN PRN Reason: Heartburn Clonazepam (Clonazepam 0.5 Mg Tablet) 0.25 mg PO BID@0800,1200 [facility] Last Admin: 12/17/23 11:44 Dose: 0.25 mg Clonazepam (Clonazepam 0.5 Mg Tablet) 0.5 mg PO BEDTIME [facility] Divalproex Sodium (Divalproex Sodium Sprinkles 125 Mg ) 500 mg PO TID [facility] Last Admin: 12/17/23 11:45 Dose: 500 mg Docusate Sodium (Docusate Sodium 100 Mg/10 Ml Liquid) 100 mg PO DAILY [facility] Last Admin: 12/17/23 13:29 Dose: Not Given Enoxaparin Sodium (Enoxaparin Sodium 40 Mg/0.4 Ml Syringe) 40 mg SUBCUT Q24H [facility] Last Admin: 12/17/23 09:29 Dose: 40 mg Guaifenesin (Guaifenesin 100 Mg/5 Ml Liquid) 10 ml PO Q6H PRN PRN Reason: Cough Ceftriaxone Sodium 1 gm/ (Sodium Chloride) 50 mls @ 100 mls/hr IV Q24H [facility] Lamotrigine (Lamotrigine 25 Mg Tablet) 12.5 mg PO DAILY [facility] Last Admin: 12/17/23 11:44 Dose: 12.5 mg Levetiracetam (Levetiracetam Oral Soln 500 Mg/5 Ml) 1,000 mg PO TID [facility] Levothyroxine Sodium (Levothyroxine Sodium 88 Mcg Tablet) 88 mcg PO DAILY@0600 [facility] Last Admin: 12/17/23 11:44 Dose: 88 mcg Magnesium Hydroxide (Milk Of Magnesia 30 Ml Oral.Susp) 30 ml PO DAILY PRN PRN Reason: Constipation Magnesium Hydroxide (Milk Of Magnesia 30 Ml Oral.Susp) 30 ml PO DAILY PRN PRN Reason: Constipation Magnesium Hydroxide (Milk Of Magnesia 30 Ml Oral.Susp) 30 ml PO Q48H [facility] Last Admin: 12/17/23 13:36 Dose: 30 ml Melatonin (Melatonin 3 Mg Tablet) 6 mg PO BEDTIME PRN PRN Reason: Insomnia Midazolam HCl (Midazolam Hcl/Pf 2 Mg/2 Ml Vial) 5 mg IM Q10M PRN PRN Reason: Seizures Multivitamins/Vitamin C (Multivitamin Tablet) 1 tab PO DAILY [facility] Last Admin: 12/17/23 13:37 Dose: Not Given Non-Formulary Medication (Bacitracin) 0.25 inch EYE-BOTH BID [facility] Non-Formulary Medication (Cholecalciferol (Vitamin D3)) 1,250 mcg PO WE@0900 [facility] Non-Formulary Medication (Felbamate) 800 mg PO TID [facility] Polyethylene Glycol (Polyethylene Glycol 3350 17 Gm Powd.Pack) 17 gm PO DAILY [facility] Last Admin: 12/17/23 13:36 Dose: 17 gm Sertraline HCl (Sertraline Hcl 50 Mg Tablet) 50 mg PO BEDTIME [facility] Sodium Biphosphate/Sodium Phosphate (Sodium Phosphate,[place]-Dibasic 133 Ml Enema) 118 ml NC DAILY PRN PRN Reason: Constipation Sodium Chloride (0.9 % Sodium Chloride Flush 3 Ml Syringe) 3 ml IVFLUSH QSHIFT [facility] Last Admin: 12/17/23 09:30 Dose: 3 ml Home Medications ?Medication ?Instructions ?Recorded ?Confirmed ?Last Taken ?Type acetaminophen 325 mg tablet 650 mg PO Q6H PRN Fever Or Pain 04/01/23 12/17/23 12/16/23 History bacitracin 500 unit/gram eye 0.25 inch ophthalmic (eye) BID 04/01/23 12/17/23 12/16/23 History ointment wounds cholecalciferol (vitamin D3) 1,250 1,250 mcg PO WE@0900 04/01/23 12/17/23 12/11/23 History mcg (50,000 unit) capsule clonazepam 0.5 mg tablet 0.25 mg PO BID@0800,1200 04/01/23 12/17/23 12/16/23 History clonazepam 0.5 mg tablet 0.5 mg PO BEDTIME 04/01/23 12/17/23 12/16/23 History divalproex 125 mg capsule,delayed 500 mg PO TID 04/01/23 12/17/23 12/16/23 History release sprinkle (Depakote Sprinkles) felbamate 400 mg tablet 800 mg PO TID 04/01/23 12/17/23 12/16/23 History levetiracetam 500 mg tablet 1,000 mg PO TID 04/01/23 12/17/23 12/16/23 History levothyroxine 88 mcg tablet 88 mcg PO DAILY@0600 04/01/23 12/17/23 12/16/23 History multivitamin with folic acid 400 1 tab PO DAILY 04/01/23 12/17/23 12/16/23 History mcg tablet (Thera) sertraline 50 mg tablet 50 mg PO BEDTIME 04/01/23 12/17/23 12/16/23 History simvastatin 40 mg tablet 40 mg PO BEDTIME 04/01/23 12/17/23 12/16/23 History zinc oxide 13 % topical cream 1 appl topical TID PRN Rash 04/01/23 12/17/23 Unknown History (Desitin Daily Defense) bisacodyl 10 mg rectal suppository 10 mg NC DAILY PRN Constipation 06/08/23 12/17/23 Unknown History (OneLAX Bisacodyl) guaifenesin 100 mg/5 mL oral liquid 200 mg PO Q6H PRN Cough 06/08/23 12/17/23 Unknown History lamotrigine 25 mg tablet 12.5 mg PO DAILY 06/08/23 12/17/23 12/16/23 History magnesium hydroxide 400 mg/5 mL 30 ml PO Q OTHER DAY Constipation 06/08/23 12/17/23 12/16/23 History oral suspension (Milk of Magnesia) polyethylene glycol 3350 17 17 g PO DAILY 06/08/23 12/17/23 12/16/23 History gram/dose oral powder sodium phosphates 19 gram-7 118 ml NC DAILY PRN Constipation 06/08/23 12/17/23 Unknown History gram/118 mL enema (Enema Disposable) white petrolatum-mineral oil 57.3 0.25 inch ophthalmic (eye) BEDTIME 06/08/23 12/17/23 12/16/23 History %-42.5 % eye ointment (Refresh P.M.) aspirin 81 mg chewable tablet 81 mg PO DAILY 12/17/23 12/17/23 12/16/23 History bacitracin 500 unit/gram topical 1 appl topical BID PRN wounds 12/17/23 12/17/23 Unknown History ointment docusate sodium 50 mg/5 mL oral 100 mg PO DAILY 12/17/23 12/17/23 12/16/23 History liquid magnesium hydroxide 400 mg/5 mL 30 ml PO DAILY PRN Constipation 12/17/23 12/17/23 Unknown History oral suspension (Milk of Magnesia) midazolam 5 mg/spray (0.1 mL) 5 mg intranasal Q10M PRN Seizures 12/17/23 12/17/23 12/09/23 History nasal spray (Nayzilam) Physical Exam Vital Signs: Vital Signs: Last Vital Signs Temp 97.2 F 12/17/23 15:38 Pulse 90 12/17/23 15:38 Resp 18 12/17/23 15:38 BP 130/65 12/17/23 15:38 Pulse Ox 94 12/17/23 15:38 O2 Del Method Room Air 12/17/23 15:38 O2 Flow Rate 4 12/17/23 02:03 BMI result Body Mass Index 25.6 Neuro: Other: Limited examination as patient is nonverbal and does not follow any commands. He moves all 4 extremities. No tremor noted. Results Labs 12/17/23 05:10 12/17/23 05:10 Labs: Short CBC 12/17/23 12/17/23 Range/Units 00:15 05:10 WBC 11.7 H 14.3 H (4.8-10.8) X10*3/uL Hgb 13.6 L D 12.5 L (14.0-18.0) g/dl Hct 38.8 L D 36.0 L (42.0-52.0) % Plt Count 202 222 (160-400) X10*3/uL BMP 12/17/23 12/17/23 00:13 05:10 Sodium 134 L 134 L Potassium 3.9 3.6 Chloride 99 101 Carbon Dioxide 27 26 BUN 10 7 L Creatinine 0.62 0.54 Calcium 9.2 D 8.7 Liver Function 12/17/23 Range/Units 00:13 Total Bilirubin 0.3 (0.0-1.0) mg/dL AST 15 (5-37) U/L ALT 10 (0-40) U/L Alkaline Phosphatase 39 (39-117) U/L Albumin 3.7 (3.5-5.0) g/dL Urine 12/17/23 Range/Units 00:51 Urine Color Yellow Urine Appearance Clear Urine pH 8.0 (5.0-9.0) Ur Specific [place] 1.010 (1.005-1.025) Urine Protein Negative (Neg-Trace) mg/dL Urine Glucose (UA) Negative (Negative) mg/dL Assessment and Plan (1) Seizures: Status: Acute He has history of seizures that have been difficult to control because of his Batson Gastaux syndrome in spite of four anticonvulsants.Check Keppra and Depakote levels. Increase Lamotrigine to 50mg bid Continue current medications. Treat infection and any metabolic abnormalities. 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 #. Sepsis and Acute metabolic encephalopathy in the setting of acute UTI: Resuscitated with IV crystalloids. Lactic acid and blood culture obtained. Initiated IV Rocephin. Monitor mentation. Will keep NPO until mentation improves. Is on pureed diet at shelter. Follow urine culture #. Breakthrough seizures in a patient with Epilepsy: On Keppra, felbamate, lamotrigine and divalproex. Consulted Neurology #. Hypothyroidism: On Synthroid #. Mood disorder: Continue home mood stabilizers once able #. History of CVA: On aspirin and statin Med rec pending DVT prophylaxis: Lovenox Full code Admit as inpatient and will require two night minimum hospital stay for IV antibiotics, monitoring mentation and hemodynamics (as above), which is not possible in a lesser acute setting. Procedures Date of Service Date of Service: 12/17/23
--- NOTE | 2023-12-17 19:36 | PM.EVENT ---
Event Note Date of Service: 12/17/23 Event Note: Positive blood culture: Gram-positive cocci in cultures. Will increase ceftriaxone to 2 g and add vancomycin. Time Spent With Patient Time: Total time managing care of this patient today ____ minutes.
[2023-12-17] MEDS: vancomycin/NS 2,000 MG/500 ML PLAST..BAG 250 MG IV (20:34)
[2023-12-17] MEDS: Atorvastatin Calcium 20 MG TABLET PO (20:44)
[2023-12-17] MEDS: Sertraline HCL 50 MG TABLET PO (20:44)
[2023-12-17] MEDS: clonazePAM 0.5 MG TABLET PO (20:45)
[2023-12-17] MEDS: cefTRIAXone sodium 2 GM in 0.9 % Sodium Chloride 50 ML IV (20:55)
[2023-12-18] VITALS: BP 112/55; PULSE 82; RESP 16; TEMP 36.2; O2SAT 99
[2023-12-18] MEDS: Levothyroxine Sodium 88 MCG TABLET PO (05:41)
[2023-12-18 07:01] VITALS: BP 120/62; PULSE 84; RESP 17; TEMP 36.6; O2SAT 98
--- NOTE | 2023-12-18 07:04 | HO.PM.IMPN ---
Subjective Subjective Date of Service: 12/18/23 Interval History: f/u on encephalopathy, UTI, breakthrough seizures No seizure reported overnight, fever resolved. Now 1/2 gram positive cocci reported Physical Exam Vital Signs: Vital Signs: Last Vital Signs Temp 97.8 F 12/18/23 07:01 Pulse 84 12/18/23 07:01 Resp 17 12/18/23 07:01 BP 120/62 12/18/23 07:01 Pulse Ox 98 12/18/23 07:01 O2 Del Method Room Air 12/18/23 07:01 O2 Flow Rate 4 12/17/23 02:03 BMI result Body Mass Index 25.6 General: Alert, no acute distress, non verbal Resp: CTA bilateral CVS: S1,S2,RRR GI: +BS, NT, no distention Skin: No rash Neuro: motor grossly intact Psych: flat Objective Data Active Medications Acetaminophen (Acetaminophen 325 Mg Tablet) 650 mg PO Q6H PRN PRN Reason: Pain, Mild (Pain Scale 1-3), fever or headache Last Admin: 12/17/23 11:44 Dose: 650 mg Documented By: CIRILO Acetaminophen (Acetaminophen 325 Mg Tablet) 650 mg PO Q6H PRN PRN Reason: Fever Or Pain Aspirin (Aspirin 81 Mg Tab.Chew) 81 mg PO DAILY [facility] Last Admin: 12/17/23 11:44 Dose: 81 mg Documented By: CIRILO Atorvastatin Calcium (Atorvastatin Calcium 20 Mg Tablet) 20 mg PO BEDTIME [facility] Last Admin: 12/17/23 20:44 Dose: 20 mg Documented By: MICAH Bacitracin (Bacitracin Oint 14 Gm Tube) 1 appl TOPICAL BID PRN; Protocol PRN Reason: wounds Bisacodyl (Bisacodyl 10 Mg Supp.Rect) 10 mg NC DAILY PRN PRN Reason: Constipation Calcium Carbonate (Calcium Carbonate 750 Mg Tab.Chew) 750 mg PO Q4H PRN PRN Reason: Heartburn Clonazepam (Clonazepam 0.5 Mg Tablet) 0.25 mg PO BID@0800,1200 [facility] Last Admin: 12/17/23 11:44 Dose: 0.25 mg Documented By: CIRILO Clonazepam (Clonazepam 0.5 Mg Tablet) 0.5 mg PO BEDTIME [facility] Last Admin: 12/17/23 20:45 Dose: 0.5 mg Documented By: MICAH Divalproex Sodium (Divalproex Sodium Sprinkles 125 Mg ) 500 mg PO TID [facility] Last Admin: 12/17/23 20:44 Dose: 500 mg Documented By: MICAH Docusate Sodium (Docusate Sodium 100 Mg/10 Ml Liquid) 100 mg PO DAILY [facility] Last Admin: 12/17/23 13:29 Dose: Not Given Documented By: CIRILO Non-Admin Reason: Patient Asleep Enoxaparin Sodium (Enoxaparin Sodium 40 Mg/0.4 Ml Syringe) 40 mg SUBCUT Q24H [facility] Last Admin: 12/17/23 09:29 Dose: 40 mg Documented By: CIRILO Guaifenesin (Guaifenesin 100 Mg/5 Ml Liquid) 10 ml PO Q6H PRN PRN Reason: Cough Ceftriaxone Sodium 2 gm/ (Sodium Chloride) 50 mls @ 100 mls/hr IV Q24H [facility] Last Infusion: 12/17/23 22:03 Dose: Infused Documented By: MICAH Vancomycin HCl 1,500 mg/ (Sodium Chloride) 500 mls @ 333.333 mls/hr IV Q12H [facility] Lamotrigine (Lamotrigine 25 Mg Tablet) 12.5 mg PO DAILY [facility] Last Admin: 12/17/23 11:44 Dose: 12.5 mg Documented By: CIRILO Levetiracetam (Levetiracetam Oral Soln 500 Mg/5 Ml) 1,000 mg PO TID [facility] Last Admin: 12/17/23 20:44 Dose: 1,000 mg Documented By: MICAH Levothyroxine Sodium (Levothyroxine Sodium 88 Mcg Tablet) 88 mcg PO DAILY@0600 [facility] Last Admin: 12/18/23 05:41 Dose: 88 mcg Documented By: CRYSTAL-RIVAISHWARYA Magnesium Hydroxide (Milk Of Magnesia 30 Ml Oral.Susp) 30 ml PO DAILY PRN PRN Reason: Constipation Magnesium Hydroxide (Milk Of Magnesia 30 Ml Oral.Susp) 30 ml PO DAILY PRN PRN Reason: Constipation Magnesium Hydroxide (Milk Of Magnesia 30 Ml Oral.Susp) 30 ml PO Q48H [facility] Last Admin: 12/17/23 13:36 Dose: 30 ml Documented By: CIRILO Melatonin (Melatonin 3 Mg Tablet) 6 mg PO BEDTIME PRN PRN Reason: Insomnia Midazolam HCl (Midazolam Hcl/Pf 2 Mg/2 Ml Vial) 5 mg IM Q10M PRN PRN Reason: Seizures Multivitamins/Vitamin C (Multivitamin Tablet) 1 tab PO DAILY [facility] Last Admin: 12/17/23 13:37 Dose: Not Given Documented By: CIRILO Non-Admin Reason: Patient Asleep Non-Formulary Medication (Bacitracin) 0.25 inch EYE-BOTH BID [facility] Pt Own( Cholecalciferol ( Vitamin D3) 1,250 Mcg (50,000 Unit) Capsule) 1,250 mcg PO WE@0900 [facility] Pt Own (Felbamate (400 Mg Tablet)) 800 mg PO TID [facility] Last Admin: 12/18/23 00:06 Dose: 800 mg Documented By: MICAH Comments: med wasnt available ;then pt was a asleep when pharmacy brought med up Pharmacy Consult (Consult Rx Vancomycin Dosing) 1 each MISCELLANE DAILY PRN PRN Reason: Consult order Polyethylene Glycol (Polyethylene Glycol 3350 17 Gm Powd.Pack) 17 gm PO DAILY [facility] Last Admin: 12/17/23 13:36 Dose: 17 gm Documented By: CIRILO Sertraline HCl (Sertraline Hcl 50 Mg Tablet) 50 mg PO BEDTIME [facility] Last Admin: 12/17/23 20:44 Dose: 50 mg Documented By: MICAH Sodium Biphosphate/Sodium Phosphate (Sodium Phosphate,[place]-Dibasic 133 Ml Enema) 118 ml NC DAILY PRN PRN Reason: Constipation Sodium Chloride (0.9 % Sodium Chloride Flush 3 Ml Syringe) 3 ml IVFLUSH QSHIFT [facility] Last Admin: 12/17/23 20:56 Dose: 3 ml Documented By: MICAH Labs 12/17/23 05:10 12/17/23 05:10 Microbiology Microbiology Results: Microbiology 12/17/23 00:12 Blood Culture - Preliminary Blood - Venous No growth after 24 hours. 12/17/23 00:15 Blood Culture - Preliminary Blood - Venous Prelim: GPC Gram Stain only Assessment and Plan (1) Acute metabolic encephalopathy: Status: Acute (2) Acute UTI: Status: Acute (3) Manjinder-Gastaut syndrome, intractable, with status epilepticus: Status: Acute Plan 58 year old male with pertinent history of epilepsy with manjinder-gastaut syndrome, hypothyroidism, history of CVA, dysphagia, history of aspiration pneumonia, mood disorder, Parkinson's disease, mixed hyperlipidemia who was sent to the emergency department from [facility] for evaluation of fevers and found to have UTI, has had seizure, while in here and bacteremia Sepsis and Acute metabolic encephalopathy in the setting of acute UTI -continue IV Abx for UTI, culture pending 1/2 gram positive cocci bacteremia--likeely contamination, continue Vanco for now until organism known Breakthrough seizures in a patient with Epilepsy, prone to frequent seizure: On Keppra, felbamate, lamotrigine and divalproex. Copntinue these meds, Consulted Neurology, valium PRN for more seizures. cardiac monitoring. Neuro recommends increasing lamictal to 50 bid Hypothyroidism: continue Synthroid Mood disorder: Continue home mood stabilizers once able History of CVA: On aspirin and statin DVT prophylaxis: Lovenox Full code inpatient for IV antibiotics, monitoring mentation and hemodynamics (as above), which is not possible in a lesser acute setting. Quality Stroke Does the patient have a stroke diagnosis?: No VTE Prior VTE?: No VTE Risk Level:: Medical - moderate - high VTE Device Contraindication: Treatment Not Indicated VTE Drug Contraindication: N/A - Med Ordered
[2023-12-18] MEDS: 0.9 % Sodium Chloride Flush 3 ML SYRINGE IVFLUSH ×2 (07:53→15:52)
[2023-12-18] MEDS: lamoTRIgine 25 MG TABLET 50 MG PO (08:00)
[2023-12-18] MEDS: Enoxaparin Sodium 40 MG/0.4 ML SYRINGE SUBCUT (08:00)
[2023-12-18] MEDS: Docusate Sodium 100 MG/10 ML LIQUID PO (08:00)
[2023-12-18] MEDS: levETIRAcetam Oral Soln 500 MG/5 ML 1000 MG PO ×2 (08:00→14:01)
[2023-12-18] MEDS: Divalproex Sodium Sprinkles 125 MG CAP.DR.SPR 500 MG PO ×2 (08:01→14:01)
[2023-12-18] MEDS: Multivitamin TABLET 1 TAB PO (08:01)
[2023-12-18] MEDS: clonazePAM 0.5 MG TABLET 0.25 MG PO ×2 (08:01→12:19)
[2023-12-18] MEDS: polyethylene glycoL 3350 17 GM POWD.PACK PO (08:01)
[2023-12-18] MEDS: Aspirin 81 MG TAB.CHEW PO (08:03)
[2023-12-18] MEDS: vancomycin HCL 1,500 MG in 0.9 % Sodium Chloride 500 ML 333.33 MG IV ×2 (09:44→21:31)
--- NOTE | 2023-12-18 11:00 | MHC.SLORD ---
Addendum entered and electronically signed by COLLIN Johnson 12/18/23 14:29: Copy of MBSS left in pt's paper chart Original Note: Addendum entered and electronically signed by COLLIN Johnson 12/18/23 13:23: Upon review by INCENDIARIES SUPERVISOR, MBSS report recommended IDDSI level 5 minced & moist (equivalent to NDD2 ground/mech altered). nursing home reports preference for puree solids. See clinical swallow note for notes on today's PO trials. Original Note: Speech Language Pathology Order Status: INCENDIARIES SUPERVISOR spoke w/ care home staff. Pt had MBSS done at [facility] in August 2023 which recommended puree solids (NDD1) and thin liquids. nursing home staff to bring in copy/fax copy of report later today.
--- NOTE | 2023-12-18 14:32 | MHC.SL.SWA ---
Risk of Aspiration Due to: Lethargy Medically Fragile Neurological Condition Reduced Cognition Dysphasia Diet Status: NO CHANGE Liquid Consistency and Strategies for Safe Swallow: Liquid Intake Recommendation: Thin Liquid Intake Strategies: Small Sips NO STRAWS Solid Food Consistency: Dietary Recommendations: Pureed (NDD1) Oral Medication Intake: Crushed with Puree Please contact the pharmacy regarding appropriate crushable or liquid drug formulations that are available whenever modified delivery is recommended. Compensatory Strategies and Precautions to be Taken for Safe Swallow: Sitting Upright (90 deg) Small Bites and Sips Alternate Liquids/Solids Rate of Ingestion Change Supervision While Eating and Drinking for Safe Swallow: Total Assistance (1:1) Recommendation for Speech: Inpatient & Outpatient/At-home CHIEF WHARFINGER tx Comment: Recommend patient continue w/ PUREE solids (NDD1) and THIN liquids (NO STRAWS). Recommend full 1-1 assistance feeding and alternating between liquids and solids. Pt typically drinks from nosey cup; recommend this method if possible during hospitalization. Recommend CHIEF WHARFINGER continue to follow to monitor toleration of diet, upgrade if/when warranted, and provide further dysphagia education to [facility] staff. Per recent MBSS report from Aug 2023 at [facility], pt was recommended NDD2. [facility] reports preference for NDD1. Chemical Strength Tester Clinican/Clinical Fellow: No Supervisory Statement: I have reviewed and agree with the student/clinical fellow's documentation: N/A Speech Language Pathologist: Payton Snyder M.A., CCC-CHIEF WHARFINGER
[2023-12-18 15:56] VITALS: BP 119/57; PULSE 99; RESP 20; TEMP 36.9; O2SAT 94
--- NOTE | 2023-12-18 15:56 | MHC.CM.PN ---
EMR reviewed and per MD rounds, pt is not medically cleared for discharge due to ongoing management of UTI, with positive blood cultures, and receiving IV abx.
[2023-12-18] MEDS: Midazolam HCl/PF 2 MG/2 ML VIAL 5 MG IM (19:11)
[2023-12-18 19:13] LABS: Glucose, Whole Blood 176 mg/dL (60-115)
[2023-12-18 19:15] VITALS: BP 146/85; PULSE 152; RESP 22; TEMP 37.4; O2SAT 95
--- NOTE | 2023-12-18 19:16 | PC.NURSE ---
Addendum entered by India Leggett RN 12/18/23 19:32: Pt transferred to [facility], medications from pt specific bin sent with charge rn. Original Note: At approximately 1900 HR elevated up into [address] on tele. This RN enterd the pts room, [employer] group leader stated hes been having seizures for about 3 minutes now , rapid response called. Unable to obtain BP due to seizures, HR 160's, 91% on RA, POC 176. 5mg IM versed given at 1911. BP recheck 146/86. Orders to be transferred to [facility].
--- NOTE | 2023-12-18 19:17 | PM.EVENT ---
Event Note Date of Service: 12/18/23 Event Note: Rapid response was called as patient had an episode of seizure. Reviewed neurology's note. Will increase lamictal to 50mg bid. 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 [place] [facility] [place] Versed IM p.r.n.. Time Spent With Patient Time: Total time managing care of this patient today ____ minutes.
[2023-12-18 19:26] VITALS: PULSE 160; RESP 32; O2SAT 91
[2023-12-18] MEDS: cefTRIAXone sodium 2 GM in 0.9 % Sodium Chloride 50 ML IV (20:25)
[2023-12-18 20:29] VITALS: BP 97/56; PULSE 116; RESP 24; TEMP 39.1; O2SAT 93
[2023-12-18] MEDS: Acetaminophen Supp 650 MG SUPP.RECT PR (20:32)
[2023-12-18 20:38] LABS: Vancomycin Random 7.2 mcg/mL (15-20)
[2023-12-18 20:39] LABS: Creatinine Clr Calc Pharmacy 163.6; Estimated Glomerular Filt Rate > 60
[2023-12-18] MEDS: levETIRAcetam in NaCl (iso-os) 1,000 MG/100 ML PIGGYBACK 400 MG IV (21:09)
[2023-12-18] MEDS: Albumin Human 25 % 100 ML 133.33 ML IV ×2 (22:12→23:11)
[2023-12-18 22:32] LABS: Lactic Acid 0.8 mmol/L (0.5-2.0)
[2023-12-19] VITALS: BP 136/63; PULSE 78; RESP 20; TEMP 36.1; O2SAT 91
[2023-12-19 03:56] VITALS: PULSE 68; O2SAT 96
[2023-12-19] MEDS: levETIRAcetam in NaCl (iso-os) 1,000 MG/100 ML PIGGYBACK 400 MG IV ×3 (04:17→20:18)
[2023-12-19] MEDS: vancomycin HCL 1,500 MG in 0.9 % Sodium Chloride 500 ML 333.33 MG IV (05:01)
[2023-12-19 06:33] LABS: Creatinine Clr Calc Pharmacy 166.7; Estimated Glomerular Filt Rate > 60
[2023-12-19 08:00] VITALS: BP 131/53; PULSE 76; RESP 20; TEMP 36.8; O2SAT 93
[2023-12-19] MEDS: lamoTRIgine 25 MG TABLET 50 MG PO ×2 (08:16→20:25)
[2023-12-19] MEDS: Aspirin 81 MG TAB.CHEW PO (08:16)
[2023-12-19] MEDS: clonazePAM 0.5 MG TABLET 0.25 MG PO ×2 (08:17→12:45)
[2023-12-19] MEDS: Docusate Sodium 100 MG/10 ML LIQUID PO (08:17)
[2023-12-19] MEDS: Divalproex Sodium Sprinkles 125 MG CAP.DR.SPR 500 MG PO ×3 (08:17→20:25)
[2023-12-19] MEDS: Enoxaparin Sodium 40 MG/0.4 ML SYRINGE SUBCUT (08:17)
[2023-12-19] MEDS: 0.9 % Sodium Chloride Flush 3 ML SYRINGE IVFLUSH ×3 (08:18→20:26)
[2023-12-19] MEDS: Multivitamin TABLET 1 TAB PO (08:31)
[2023-12-19] MEDS: polyethylene glycoL 3350 17 GM POWD.PACK PO (08:31)
[2023-12-19 11:33] VITALS: BP 131/62; PULSE 76; RESP 16; TEMP 36.4; O2SAT 94
[2023-12-19] MEDS: Milk of Magnesia 30 ML ORAL.SUSP PO (12:45)
--- NOTE | 2023-12-19 13:25 | HO.PM.IMPN ---
Subjective Subjective Date of Service: 12/20/23 Interval History: f/u on encephalopathy, UTI, breakthrough seizures Patient had multiple cluster seizures last night, and right after that had a temp of 102 but temps have been normal since. Physical Exam Vital Signs: Vital Signs: Last Vital Signs Temp 97.5 F 12/19/23 11:33 Pulse 76 12/19/23 11:33 Resp 16 12/19/23 11:33 BP 131/62 12/19/23 11:33 Pulse Ox 94 12/19/23 11:33 O2 Del Method Room Air 12/19/23 11:33 O2 Flow Rate 4 12/17/23 02:03 BMI result Body Mass Index 25.6 Objective Data Active Medications Acetaminophen (Acetaminophen 325 Mg Tablet) 650 mg PO Q6H PRN PRN Reason: Pain, Mild (Pain Scale 1-3), fever or headache Last Admin: 12/17/23 11:44 Dose: 650 mg Documented By: CIRILO Acetaminophen (Acetaminophen 325 Mg Tablet) 650 mg PO Q6H PRN PRN Reason: Fever Or Pain Acetaminophen (Acetaminophen Supp 650 Mg Supp.Rect) 650 mg [place] Q4H PRN PRN Reason: Fever >100.4 Last Admin: 12/18/23 20:32 Dose: 650 mg Documented By: SANGEETA Aspirin (Aspirin 81 Mg Tab.Chew) 81 mg PO DAILY [facility] Last Admin: 12/19/23 08:16 Dose: 81 mg Documented By: ENRRIQUE Atorvastatin Calcium (Atorvastatin Calcium 20 Mg Tablet) 20 mg PO BEDTIME [facility] Last Admin: 12/18/23 23:12 Dose: Not Given Documented By: SANGEETA Non-Admin Reason: per Bacitracin (Bacitracin Oint 14 Gm Tube) 1 appl TOPICAL BID PRN; Protocol PRN Reason: wounds Bisacodyl (Bisacodyl 10 Mg Supp.Rect) 10 mg [place] DAILY PRN PRN Reason: Constipation Calcium Carbonate (Calcium Carbonate 750 Mg Tab.Chew) 750 mg PO Q4H PRN PRN Reason: Heartburn Clonazepam (Clonazepam 0.5 Mg Tablet) 0.25 mg PO BID@0800,1200 [facility] Last Admin: 12/19/23 12:45 Dose: 0.25 mg Documented By: ENRRIQUE Clonazepam (Clonazepam 0.5 Mg Tablet) 0.5 mg PO BEDTIME [facility] Last Admin: 12/18/23 23:12 Dose: Not Given Documented By: SANGEETA Non-Admin Reason: Per Divalproex Sodium (Divalproex Sodium Sprinkles 125 Mg ) 500 mg PO TID [facility] Last Admin: 12/19/23 08:17 Dose: 500 mg Documented By: ENRRIQUE Docusate Sodium (Docusate Sodium 100 Mg/10 Ml Liquid) 100 mg PO DAILY [facility] Last Admin: 12/19/23 08:17 Dose: 100 mg Documented By: ENRRIQUE Enoxaparin Sodium (Enoxaparin Sodium 40 Mg/0.4 Ml Syringe) 40 mg SUBCUT Q24H [facility] Last Admin: 12/19/23 08:17 Dose: 40 mg Documented By: ENRRIQUE Guaifenesin (Guaifenesin 100 Mg/5 Ml Liquid) 10 ml PO Q6H PRN PRN Reason: Cough Ceftriaxone Sodium 2 gm/ (Sodium Chloride) 50 mls @ 100 mls/hr IV Q24H [facility] Last Infusion: 12/18/23 21:40 Dose: Infused Documented By: SANGEETA Levetiracetam (Keppra) 1,000 mg in 100 mls @ 400 mls/hr IV Q8H [facility] Last Infusion: 12/19/23 13:07 Dose: Infused Documented By: ENRRIQUE Vancomycin HCl 1,500 mg/ (Sodium Chloride) 500 mls @ 333.333 mls/hr IV Q8H [facility] Last Infusion: 12/19/23 06:40 Dose: Infused Documented By: SANGEETA Lamotrigine (Lamotrigine 25 Mg Tablet) 50 mg PO BID [facility] Last Admin: 12/19/23 08:16 Dose: 50 mg Documented By: ENRRIQUE Levothyroxine Sodium (Levothyroxine Sodium 88 Mcg Tablet) 88 mcg PO DAILY@0600 [facility] Last Admin: 12/19/23 06:21 Dose: Not Given Documented By: SANGEETA Non-Admin Reason: Patient Refused Magnesium Hydroxide (Milk Of Magnesia 30 Ml Oral.Susp) 30 ml PO DAILY PRN PRN Reason: Constipation Magnesium Hydroxide (Milk Of Magnesia 30 Ml Oral.Susp) 30 ml PO DAILY PRN PRN Reason: Constipation Magnesium Hydroxide (Milk Of Magnesia 30 Ml Oral.Susp) 30 ml PO Q48H [facility] Last Admin: 12/19/23 12:45 Dose: 30 ml Documented By: ENRRIQUE Melatonin (Melatonin 3 Mg Tablet) 6 mg PO BEDTIME PRN PRN Reason: Insomnia Midazolam HCl (Midazolam Hcl/Pf 2 Mg/2 Ml Vial) 5 mg IM Q10M PRN PRN Reason: Seizures Last Admin: 12/18/23 19:11 Dose: 5 mg Documented By: PAMELA Multivitamins/Vitamin C (Multivitamin Tablet) 1 tab PO DAILY [facility] Last Admin: 12/19/23 08:31 Dose: 1 tab Documented By: ENRRIQUE Non-Formulary Medication (Bacitracin) 0.25 inch EYE-BOTH BID [facility] Pt Own( Cholecalciferol ( Vitamin D3) 1,250 Mcg (50,000 Unit) Capsule) 1,250 mcg PO WE@0900 [facility] Last Admin: 12/18/23 08:02 Dose: 1,250 mcg Documented By: ANTONY Pt Own (Felbamate (400 Mg Tablet)) 800 mg PO TID [facility] Last Admin: 12/19/23 08:31 Dose: 800 mg Documented By: ENRRIQUE Pharmacy Consult (Consult Rx Vancomycin Dosing) 1 each MISCELLANE DAILY PRN PRN Reason: Consult order Polyethylene Glycol (Polyethylene Glycol 3350 17 Gm Powd.Pack) 17 gm PO DAILY [facility] Last Admin: 12/19/23 08:31 Dose: 17 gm Documented By: ENRRIQUE Sertraline HCl (Sertraline Hcl 50 Mg Tablet) 50 mg PO BEDTIME [facility] Last Admin: 12/18/23 23:13 Dose: Not Given Documented By: SANGEETA Non-Admin Reason: per MD Sodium Biphosphate/Sodium Phosphate (Sodium Phosphate,[place]-Dibasic 133 Ml Enema) 118 ml [place] DAILY PRN PRN Reason: Constipation Sodium Chloride (0.9 % Sodium Chloride Flush 3 Ml Syringe) 3 ml IVFLUSH QSHIFT [facility] Last Admin: 12/19/23 08:18 Dose: 3 ml Documented By: ENRRIQUE Labs 12/18/23 22:14 12/20/23 12:58 Labs: Laboratory Results - last 24 hr 12/18/23 12/18/23 12/18/23 19:09 20:11 22:14 Hold Purple Top SEE NOTE Estim Creat Clear Calc 163.6 Estimated GFR > 60 POC Glucose 176 H Lactic Acid 0.8 Hold Green Top See Note Random Vancomycin 7.2 L 12/19/23 06:02 Hold Purple Top Estim Creat Clear Calc 166.7 Estimated GFR > 60 POC Glucose Lactic Acid Hold Green Top Random Vancomycin Microbiology Microbiology Results: Microbiology 12/17/23 00:12 Blood Culture - Preliminary Blood - Venous No growth after 48 hours. 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 Copntinue these meds, Consulted Neurology, valium PRN for more seizures. cardiac monitoring. Neuro recommends has incrased lamictal to 50 bid, but still having breakthrough seizures, continue present meds and if continue to have more than unsual seizures then ask neurology to reassess Hypothyroidism: continue Synthroid Mood disorder: Continue home mood stabilizers once able History of CVA: On aspirin and statin DVT prophylaxis: Lovenox Full code inpatient for IV antibiotics, monitoring mentation and hemodynamics (as above), which is not possible in a lesser acute setting. Quality Stroke Does the patient have a stroke diagnosis?: No VTE Prior VTE?: No VTE Risk Level:: Medical - moderate - high VTE Device Contraindication: Treatment Not Indicated VTE Drug Contraindication: N/A - Med Ordered
[2023-12-19 13:28] LABS: MANUAL DIFF FLAG NO
[2023-12-19 13:31] LABS: Basophils Percent Auto 0.1 % (0-2); Hematocrit 33.2 % (42.0-52.0); Hemoglobin 11.3 g/dl (14.0-18.0); Imm Gran Abs Auto 0.04 X10*3/uL (0.00-0.03); Imm Gran Pct Auto 0.5 % (0.0-0.4); Lymphocytes Absolute Auto 0.8 X10*3/uL (1.2-4.9); Lymphocytes Percent Auto 10.1 % (20-40); Mean Corpuscular Hemoglobin 29.2 pg (27.0-33.0); Mean Corpuscular Volume 85.8 fL (80.0-98.0); Mean Platelet Volume 10.7 fL (9.4-12.4); Monocytes Absolute Auto 0.9 X10*3/uL (0.1-1.2); Monocytes Percent Auto 11.2 % (2-11); Neutrophils Absolute Auto 6.4 x10*3/uL (2.0-8.3); Neutrophils Percent Auto 78.1 % (45-73); Platelet Count 203 X10*3/uL (160-400); Red Blood Count 3.87 X10*6/uL (4.60-5.80); Red Cell Distribution Width 13.2 % (11.0-16.0); White Blood Count 8.2 X10*3/uL (4.8-10.8)
--- NOTE | 2023-12-19 14:11 | MHC.SL.SWA ---
Speech Pathologist Impression: Risk of Aspiration Due to: Lethargy Medically Fragile Neurological Condition Reduced Cognition Dysphasia Diet Status: Recommend patient continue w/ PUREE solids (NDD1) and THIN liquids (by nosey cup ). Recommend full 1-1 assistance feeding and alternating between liquids and solids. Liquid Consistency and Strategies for Safe Swallow: Liquid Intake Recommendation: Thin Liquid Intake Strategies: Small Sips No Straws Solid Food Consistency: Dietary Recommendations: Pureed (NDD1) Additional Modifications to Solid Foods: Recommending UPGRADE to PUREE SOLIDS (NDD1) and THIN LIQUIDS. MEDS CRUSHED in PUREE. 1:1 ASSIST at this time. NO STRAWS. Oral Medication Intake: Crushed with Puree Please contact the pharmacy regarding appropriate crushable or liquid drug formulations that are available whenever modified delivery is recommended. Compensatory Strategies and Precautions to be Taken for Safe Swallow: Sitting Upright (90 deg) No Straw Liquids from Cup Small Bites and Sips Alternate Liquids/Solids Rate of Ingestion Change Supervision While Eating and Drinking for Safe Swallow: Total Assistance (1:1) Foods to Avoid: Swallowing Recommended Treatments: Recommendation for Speech: Comment: Pt seen during lunch w/ puree tray. Staff from [facility] was present at meal, again reported to this therapist that patient is on Puree diet at [facility] which he tolerates generally well. Patient also has specialty cup (nosey cup) which is present in room, which [employer] [employer] used for liquids at today's lunch. Patient was positioned to be seated upright in bed, and he expressed interest in having lunch. Patient given bites of puree, with patient producing timely oral and pharyngeal phase, tongue pumping noted to propel bolus. Patient took sips of apple juice from nosey cup, taking small amounts at each sip. [facility] staff again noted to this therapist that patient often coughs after eating for a while. Staff was again encouraged to alternate solids with sips of liquid to assure clearance of any laryngeal residual. [employer] [employer] left staff to continue to feed patient lunch, noting on white board the presence and need for nosey cup for liquids. Frequency/Duration: Date Range for Service Req: Timeline to reassess: Residential Carpet Installer Clinican/Clinical Fellow: No Supervisory Statement: I have reviewed and agree with the student/clinical fellow's documentation: N/A Speech Language Pathologist: Payton Snyder M.A., [facility]
[2023-12-19 16:00] VITALS: BP 139/69; PULSE 80; RESP 20; TEMP 36.8; O2SAT 93
[2023-12-19] MEDS: cefTRIAXone sodium 2 GM in 0.9 % Sodium Chloride 50 ML IV (20:23)
[2023-12-19] MEDS: Atorvastatin Calcium 20 MG TABLET PO (20:25)
[2023-12-19] MEDS: Sertraline HCL 50 MG TABLET PO (20:25)
[2023-12-19] MEDS: clonazePAM 0.5 MG TABLET PO (20:25)
[2023-12-20] VITALS: BP 142/72; PULSE 72; RESP 24; TEMP 36.1; O2SAT 94
[2023-12-20] MEDS: levETIRAcetam in NaCl (iso-os) 1,000 MG/100 ML PIGGYBACK 400 MG IV ×3 (05:34→21:35)
[2023-12-20] MEDS: Levothyroxine Sodium 88 MCG TABLET PO (05:42)
[2023-12-20 07:38] VITALS: BP 122/57; PULSE 79; RESP 16; TEMP 36.8; O2SAT 94
[2023-12-20] MEDS: Divalproex Sodium Sprinkles 125 MG CAP.DR.SPR 500 MG PO ×3 (09:54→21:32)
[2023-12-20] MEDS: lamoTRIgine 25 MG TABLET 50 MG PO ×2 (09:54→21:33)
[2023-12-20] MEDS: Enoxaparin Sodium 40 MG/0.4 ML SYRINGE SUBCUT (09:54)
[2023-12-20] MEDS: Multivitamin TABLET 1 TAB PO (09:55)
[2023-12-20] MEDS: Aspirin 81 MG TAB.CHEW PO (09:55)
[2023-12-20] MEDS: Docusate Sodium 100 MG/10 ML LIQUID PO (09:55)
[2023-12-20] MEDS: clonazePAM 0.5 MG TABLET 0.25 MG PO ×2 (09:55→11:47)
--- NOTE | 2023-12-20 11:49 | MHC.SL.SWA ---
Speech Pathologist Impression: Risk of aspiration, oropharyngeal dysphagia Risk of Aspiration Due to: Lethargy Medically Fragile Neurological Condition Reduced Cognition Dysphasia Diet Status: Recommend patient continue w/ PUREE solids (NDD1) and THIN liquids (by nosey cup ). Recommend full 1-1 assistance feeding and alternating between liquids and solids. Liquid Consistency and Strategies for Safe Swallow: Liquid Intake Recommendation: Thin Liquid Intake Strategies: Small Sips No Straws Solid Food Consistency: Dietary Recommendations: Pureed (NDD1) Oral Medication Intake: Crushed with Puree Please contact the pharmacy regarding appropriate crushable or liquid drug formulations that are available whenever modified delivery is recommended. Compensatory Strategies and Precautions to be Taken for Safe Swallow: Sitting Upright (90 deg) No Straw Liquids from Cup Small Bites and Sips Alternate Liquids/Solids Rate of Ingestion Change Supervision While Eating and Drinking for Safe Swallow: Total Assistance (1:1) Swallowing Recommended Treatments: Compens. Strategy Educat. Recommendation for Speech: Comment: Recommend patient continue w/ PUREE solids (NDD1) and THIN liquids (NO STRAWS). Recommend full 1-1 assistance feeding and alternating between liquids and solids. Pt typically drinks from nosey cup; recommend this method if possible during hospitalization. Recommend CLOTH NAPPING SUPERVISOR continue to follow to monitor toleration of diet, upgrade if/when warranted, and provide further dysphagia education to [facility] staff. Frequency/Duration: Tray Packer Clinican/Clinical Fellow: No Supervisory Statement: I have reviewed and agree with the student/clinical fellow's documentation: N/A Speech Language Pathologist: Beatriz Quiroz M.A., [facility]-CLOTH NAPPING SUPERVISOR
--- NOTE | 2023-12-20 12:51 | MHC.CM.PN ---
pt still requiring acute care for treatment of UTI. DCP: [facility] via [facility].
[2023-12-20 13:23] LABS: Creatinine Clr Calc Pharmacy 160.6; Estimated Glomerular Filt Rate > 60
--- NOTE | 2023-12-20 13:40 | HO.PM.IMPN ---
Subjective Subjective Date of Service: 12/20/23 Interval History: f/u on encephalopathy, UTI, breakthrough seizures No more than usual seizure activity reported. and no more fever but blood culture from 12/17 1 gram positive cocci Physical Exam Vital Signs: Vital Signs: Last Vital Signs Temp 98.2 F 12/20/23 07:38 Pulse 79 12/20/23 07:38 Resp 16 12/20/23 07:38 BP 122/57 L 12/20/23 07:38 Pulse Ox 94 12/20/23 07:38 O2 Del Method Room Air 12/20/23 07:38 O2 Flow Rate 4 12/17/23 02:03 BMI result Body Mass Index 25.6 General: Alert, no acute distress, non verbal Resp: CTA bilateral CVS: S1,S2,RRR GI: +BS, NT, no distention Skin: No rash Neuro: motor grossly intact Psych: flat Objective Data Active Medications Acetaminophen (Acetaminophen 325 Mg Tablet) 650 mg PO Q6H PRN PRN Reason: Pain, Mild (Pain Scale 1-3), fever or headache Last Admin: 12/17/23 11:44 Dose: 650 mg Documented By: CIRILO Acetaminophen (Acetaminophen 325 Mg Tablet) 650 mg PO Q6H PRN PRN Reason: Fever Or Pain Acetaminophen (Acetaminophen Supp 650 Mg Supp.Rect) 650 mg [place] Q4H PRN PRN Reason: Fever >100.4 Last Admin: 12/18/23 20:32 Dose: 650 mg Documented By: SANGEETA Aspirin (Aspirin 81 Mg Tab.Chew) 81 mg PO DAILY [facility] Last Admin: 12/20/23 09:55 Dose: 81 mg Documented By: GORDO Atorvastatin Calcium (Atorvastatin Calcium 20 Mg Tablet) 20 mg PO BEDTIME [facility] Last Admin: 12/19/23 20:25 Dose: 20 mg Documented By: ZULLY Bacitracin (Bacitracin Oint 14 Gm Tube) 1 appl TOPICAL BID PRN; Protocol PRN Reason: wounds Bisacodyl (Bisacodyl 10 Mg Supp.Rect) 10 mg [place] DAILY PRN PRN Reason: Constipation Calcium Carbonate (Calcium Carbonate 750 Mg Tab.Chew) 750 mg PO Q4H PRN PRN Reason: Heartburn Clonazepam (Clonazepam 0.5 Mg Tablet) 0.25 mg PO BID@0800,1200 [facility] Last Admin: 12/20/23 11:47 Dose: 0.25 mg Documented By: GORDO Clonazepam (Clonazepam 0.5 Mg Tablet) 0.5 mg PO BEDTIME [facility] Last Admin: 12/19/23 20:25 Dose: 0.5 mg Documented By: ZULLY Divalproex Sodium (Divalproex Sodium Sprinkles 125 Mg ) 500 mg PO TID [facility] Last Admin: 12/20/23 09:54 Dose: 500 mg Documented By: GORDO Docusate Sodium (Docusate Sodium 100 Mg/10 Ml Liquid) 100 mg PO DAILY [facility] Last Admin: 12/20/23 09:55 Dose: 100 mg Documented By: GORDO Enoxaparin Sodium (Enoxaparin Sodium 40 Mg/0.4 Ml Syringe) 40 mg SUBCUT Q24H [facility] Last Admin: 12/20/23 09:54 Dose: 40 mg Documented By: GORDO Guaifenesin (Guaifenesin 100 Mg/5 Ml Liquid) 10 ml PO Q6H PRN PRN Reason: Cough Ceftriaxone Sodium 2 gm/ (Sodium Chloride) 50 mls @ 100 mls/hr IV Q24H [facility] Last Infusion: 12/19/23 20:53 Dose: Infused Documented By: ZULLY Levetiracetam (Keppra) 1,000 mg in 100 mls @ 400 mls/hr IV Q8H [facility] Last Infusion: 12/20/23 12:02 Dose: Infused Documented By: GORDO Vancomycin HCl (Vancomycin/Ns) 2,000 mg in 500 mls @ 250 mls/hr IV ONCE ONE Stop: 12/20/23 14:59 Lamotrigine (Lamotrigine 25 Mg Tablet) 50 mg PO BID [facility] Last Admin: 12/20/23 09:54 Dose: 50 mg Documented By: GORDO Levothyroxine Sodium (Levothyroxine Sodium 88 Mcg Tablet) 88 mcg PO DAILY@0600 [facility] Last Admin: 12/20/23 05:42 Dose: 88 mcg Documented By: ZULLY Magnesium Hydroxide (Milk Of Magnesia 30 Ml Oral.Susp) 30 ml PO DAILY PRN PRN Reason: Constipation Magnesium Hydroxide (Milk Of Magnesia 30 Ml Oral.Susp) 30 ml PO DAILY PRN PRN Reason: Constipation Magnesium Hydroxide (Milk Of Magnesia 30 Ml Oral.Susp) 30 ml PO Q48H [facility] Last Admin: 12/19/23 12:45 Dose: 30 ml Documented By: ENRRIQUE Melatonin (Melatonin 3 Mg Tablet) 6 mg PO BEDTIME PRN PRN Reason: Insomnia Midazolam HCl (Midazolam Hcl/Pf 2 Mg/2 Ml Vial) 5 mg IM Q10M PRN PRN Reason: Seizures Last Admin: 12/18/23 19:11 Dose: 5 mg Documented By: PAMELA Multivitamins/Vitamin C (Multivitamin Tablet) 1 tab PO DAILY [facility] Last Admin: 12/20/23 09:55 Dose: 1 tab Documented By: GORDO Pt Own( Cholecalciferol ( Vitamin D3) 1,250 Mcg (50,000 Unit) Capsule) 1,250 mcg PO WE@0900 [facility] Last Admin: 12/18/23 08:02 Dose: 1,250 mcg Documented By: ANTONY Pt Own (Felbamate (400 Mg Tablet)) 800 mg PO TID [facility] Last Admin: 12/20/23 09:54 Dose: 800 mg Documented By: GORDO Pharmacy Consult (Consult Rx Vancomycin Dosing) 1 each MISCELLANE DAILY PRN PRN Reason: Consult order Polyethylene Glycol (Polyethylene Glycol 3350 17 Gm Powd.Pack) 17 gm PO DAILY [facility] Last Admin: 12/20/23 09:23 Dose: Not Given Documented By: GORDO Non-Admin Reason: pt had large, loose bm this AM Sertraline HCl (Sertraline Hcl 50 Mg Tablet) 50 mg PO BEDTIME [facility] Last Admin: 12/19/23 20:25 Dose: 50 mg Documented By: ZULLY Sodium Biphosphate/Sodium Phosphate (Sodium Phosphate,[place]-Dibasic 133 Ml Enema) 118 ml [place] DAILY PRN PRN Reason: Constipation Sodium Chloride (0.9 % Sodium Chloride Flush 3 Ml Syringe) 3 ml IVFLUSH QSHIFT [facility] Last Admin: 12/20/23 10:20 Dose: Not Given Documented By: GORDO Non-Admin Reason: Previously Administered Labs 12/18/23 22:14 12/20/23 12:58 Labs: Laboratory Results - last 24 hr 12/20/23 12:58 Estim Creat Clear Calc 160.6 Estimated GFR > 60 Microbiology Microbiology Results: Microbiology 12/18/23 22:14 Blood Culture - Preliminary Blood - Venous Prelim: [facility] Gram Stain only 12/18/23 22:14 Blood Culture - Preliminary Blood - Venous No growth after 24 hours. 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, hypothyroidism, history of CVA, dysphagia, history of aspiration pneumonia, mood disorder, Parkinson's disease, mixed hyperlipidemia who was sent to the emergency [facility] for evaluation of fevers and found to have UTI, has had seizure, while in here and bacteremia Sepsis and Acute metabolic encephalopathy in the setting of acute UTI -continue IV Abx for UTI, culture = e coli sensitive to ceftriaxone 1/2 gram positive cocci bacteremia--coag negative stap another 1/2 gram positive cocci when patient had fever on 12/17 restart Vanco until sensitivity is back Breakthrough seizures in a patient with Epilepsy, prone to frequent seizure: On Keppra, felbamate, lamotrigine and divalproex. Copntinue these meds, Consulted Neurology, valium PRN for more seizures. cardiac monitoring. Neuro recommends has incrased lamictal to 50 bid, but still having breakthrough seizures, continue present meds and if continue to have more than unsual seizures then ask neurology to reassess Hypothyroidism: continue Synthroid Mood disorder: Continue home mood stabilizers once able History of CVA: On aspirin and statin DVT prophylaxis: Lovenox Full code inpatient for IV antibiotics, monitoring mentation and hemodynamics (as above), which is not possible in a lesser acute setting. Quality Stroke Does the patient have a stroke diagnosis?: No VTE Prior VTE?: No VTE Risk Level:: Medical - moderate - high VTE Device Contraindication: Treatment Not Indicated VTE Drug Contraindication: N/A - Med Ordered
[2023-12-20] MEDS: vancomycin/NS 2,000 MG/500 ML PLAST..BAG 250 MG IV (14:15)
[2023-12-20 16:00] VITALS: BP 137/66; PULSE 95; RESP 18; TEMP 36.2; O2SAT 96
[2023-12-20 20:43] VITALS: BP 130/60; PULSE 76; RESP 20; TEMP 36.3; O2SAT 95
[2023-12-20] MEDS: Atorvastatin Calcium 20 MG TABLET PO (21:33)
[2023-12-20] MEDS: clonazePAM 0.5 MG TABLET PO (21:33)
[2023-12-20] MEDS: Sertraline HCL 50 MG TABLET PO (21:33)
[2023-12-20] MEDS: 0.9 % Sodium Chloride Flush 3 ML SYRINGE IVFLUSH (21:33)
[2023-12-20] MEDS: cefTRIAXone sodium 2 GM in 0.9 % Sodium Chloride 50 ML IV (21:38)
[2023-12-20] MEDS: vancomycin HCL 1,500 MG in 0.9 % Sodium Chloride 500 ML 333.33 MG IV (22:14)
[2023-12-21] VITALS: BP 135/65; PULSE 73; RESP 20; TEMP 36.5; O2SAT 96
[2023-12-21] MEDS: levETIRAcetam in NaCl (iso-os) 1,000 MG/100 ML PIGGYBACK 400 MG IV ×3 (05:41→20:28)
[2023-12-21] MEDS: Levothyroxine Sodium 88 MCG TABLET PO (05:42)
[2023-12-21] MEDS: vancomycin HCL 1,500 MG in 0.9 % Sodium Chloride 500 ML 333.33 MG IV (05:48)
[2023-12-21 07:35] LABS: Creatinine Clr Calc Pharmacy 160.6; Estimated Glomerular Filt Rate > 60
[2023-12-21 07:56] VITALS: BP 140/65; PULSE 66; RESP 18; TEMP 36.1; O2SAT 95
[2023-12-21] MEDS: clonazePAM 0.5 MG TABLET 0.25 MG PO ×2 (09:47→12:28)
[2023-12-21] MEDS: Multivitamin TABLET 1 TAB PO (09:47)
[2023-12-21] MEDS: lamoTRIgine 25 MG TABLET 50 MG PO ×2 (09:47→20:29)
[2023-12-21] MEDS: Aspirin 81 MG TAB.CHEW PO (09:47)
[2023-12-21] MEDS: Divalproex Sodium Sprinkles 125 MG CAP.DR.SPR 500 MG PO ×3 (09:48→20:29)
[2023-12-21] MEDS: 0.9 % Sodium Chloride Flush 3 ML SYRINGE IVFLUSH ×2 (09:49→15:36)
[2023-12-21] MEDS: Docusate Sodium 100 MG/10 ML LIQUID PO (09:50)
[2023-12-21] MEDS: Enoxaparin Sodium 40 MG/0.4 ML SYRINGE SUBCUT (09:50)
--- NOTE | 2023-12-21 11:42 | P.PNIM_ITS ---
Subjective Subjective Date of Service: 12/21/23 Interval History: no complaints Physical Exam 2 Vital Signs: Vital Signs: Last Vital Signs Temp 97.0 F 12/21/23 07:56 Pulse 66 12/21/23 07:56 Resp 18 12/21/23 07:56 BP 140/65 H 12/21/23 07:56 Pulse Ox 95 12/21/23 07:56 O2 Del Method Room Air 12/21/23 07:56 O2 Flow Rate 4 12/17/23 02:03 BMI result Body Mass Index 25.6 General: Alert, no acute distress, non verbal Resp: CTA bilateral CVS: S1,S2,RRR GI: +BS, NT, no distention Skin: No rash Neuro: motor grossly intact Psych: flat Objective Data Active Medications Acetaminophen (Acetaminophen 325 Mg Tablet) 650 mg PO Q6H PRN PRN Reason: Pain, Mild (Pain Scale 1-3), fever or headache Last Admin: 12/17/23 11:44 Dose: 650 mg Documented By: CIRILO Acetaminophen (Acetaminophen 325 Mg Tablet) 650 mg PO Q6H PRN PRN Reason: Fever Or Pain Acetaminophen (Acetaminophen Supp 650 Mg Supp.Rect) 650 mg MI Q4H PRN PRN Reason: Fever >100.4 Last Admin: 12/18/23 20:32 Dose: 650 mg Documented By: SANGEETA Aspirin (Aspirin 81 Mg Tab.Chew) 81 mg PO DAILY [facility] Last Admin: 12/21/23 09:47 Dose: 81 mg Documented By: BELINDA Atorvastatin Calcium (Atorvastatin Calcium 20 Mg Tablet) 20 mg PO BEDTIME [facility] Last Admin: 12/20/23 21:33 Dose: 20 mg Documented By: NANCY Bacitracin (Bacitracin Oint 14 Gm Tube) 1 appl TOPICAL BID PRN; Protocol PRN Reason: wounds Bisacodyl (Bisacodyl 10 Mg Supp.Rect) 10 mg MI DAILY PRN PRN Reason: Constipation Calcium Carbonate (Calcium Carbonate 750 Mg Tab.Chew) 750 mg PO Q4H PRN PRN Reason: Heartburn Clonazepam (Clonazepam 0.5 Mg Tablet) 0.25 mg PO BID@0800,1200 [facility] Last Admin: 12/21/23 09:47 Dose: 0.25 mg Documented By: BELINDA Clonazepam (Clonazepam 0.5 Mg Tablet) 0.5 mg PO BEDTIME [facility] Last Admin: 12/20/23 21:33 Dose: 0.5 mg Documented By: NANCY Divalproex Sodium (Divalproex Sodium Sprinkles 125 Mg ) 500 mg PO TID [facility] Last Admin: 12/21/23 09:48 Dose: 500 mg Documented By: BELINDA Docusate Sodium (Docusate Sodium 100 Mg/10 Ml Liquid) 100 mg PO DAILY [facility] Last Admin: 12/21/23 09:50 Dose: 100 mg Documented By: BELINDA Enoxaparin Sodium (Enoxaparin Sodium 40 Mg/0.4 Ml Syringe) 40 mg SUBCUT Q24H [facility] Last Admin: 12/21/23 09:50 Dose: 40 mg Documented By: BELINDA Guaifenesin (Guaifenesin 100 Mg/5 Ml Liquid) 10 ml PO Q6H PRN PRN Reason: Cough Ceftriaxone Sodium 2 gm/ (Sodium Chloride) 50 mls @ 100 mls/hr IV Q24H [facility] Last Infusion: 12/20/23 22:08 Dose: Infused Documented By: NANCY Levetiracetam (Keppra) 1,000 mg in 100 mls @ 400 mls/hr IV Q8H [facility] Last Infusion: 12/21/23 05:56 Dose: Infused Documented By: NANCY Vancomycin HCl 1,500 mg/ (Sodium Chloride) 500 mls @ 333.333 mls/hr IV Q8H [facility] Last Infusion: 12/21/23 09:42 Dose: Infused Documented By: BELINDA Lamotrigine (Lamotrigine 25 Mg Tablet) 50 mg PO BID [facility] Last Admin: 12/21/23 09:47 Dose: 50 mg Documented By: BELINDA Levothyroxine Sodium (Levothyroxine Sodium 88 Mcg Tablet) 88 mcg PO DAILY@0600 [facility] Last Admin: 12/21/23 05:42 Dose: 88 mcg Documented By: NANCY Magnesium Hydroxide (Milk Of Magnesia 30 Ml Oral.Susp) 30 ml PO DAILY PRN PRN Reason: Constipation Magnesium Hydroxide (Milk Of Magnesia 30 Ml Oral.Susp) 30 ml PO DAILY PRN PRN Reason: Constipation Magnesium Hydroxide (Milk Of Magnesia 30 Ml Oral.Susp) 30 ml PO Q48H [facility] Last Admin: 12/19/23 12:45 Dose: 30 ml Documented By: ENRRIQUE Melatonin (Melatonin 3 Mg Tablet) 6 mg PO BEDTIME PRN PRN Reason: Insomnia Midazolam HCl (Midazolam Hcl/Pf 2 Mg/2 Ml Vial) 5 mg IM Q10M PRN PRN Reason: Seizures Last Admin: 12/18/23 19:11 Dose: 5 mg Documented By: PAMELA Multivitamins/Vitamin C (Multivitamin Tablet) 1 tab PO DAILY [facility] Last Admin: 12/21/23 09:47 Dose: 1 tab Documented By: BELINDA Pt Own( Cholecalciferol ( Vitamin D3) 1,250 Mcg (50,000 Unit) Capsule) 1,250 mcg PO WE@0900 [facility] Last Admin: 12/18/23 08:02 Dose: 1,250 mcg Documented By: ANTONY Pt Own (Felbamate (400 Mg Tablet)) 800 mg PO TID [facility] Last Admin: 12/21/23 09:51 Dose: 800 mg Documented By: BELINDA Pharmacy Consult (Consult Rx Vancomycin Dosing) 1 each MISCELLANE DAILY PRN PRN Reason: Consult order Polyethylene Glycol (Polyethylene Glycol 3350 17 Gm Powd.Pack) 17 gm PO DAILY [facility] Last Admin: 12/21/23 10:02 Dose: Not Given Documented By: BELINDA Non-Admin Reason: pt having loose stools Sertraline HCl (Sertraline Hcl 50 Mg Tablet) 50 mg PO BEDTIME [facility] Last Admin: 12/20/23 21:33 Dose: 50 mg Documented By: NANCY Sodium Biphosphate/Sodium Phosphate (Sodium Phosphate,[place]yler-Dibasic 133 Ml Enema) 118 ml MI DAILY PRN PRN Reason: Constipation Sodium Chloride (0.9 % Sodium Chloride Flush 3 Ml Syringe) 3 ml IVFLUSH QSHIFT [facility] Last Admin: 12/21/23 09:49 Dose: 3 ml Documented By: BELINDA Labs 12/18/23 22:14 12/21/23 06:11 Labs: Laboratory Results - last 24 hr 12/20/23 12/21/23 12:58 06:11 Hold Purple Top SEE NOTE Estim Creat Clear Calc 160.6 160.6 Estimated GFR > 60 > 60 Microbiology Microbiology Results: Microbiology 12/18/23 22:14 Blood Culture - Final Blood - Venous Coag negative Staphylococcus 12/18/23 22:14 Blood Culture - Preliminary Blood - Venous No growth after 48 hours. 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, hypothyroidism, history of CVA, dysphagia, history of aspiration pneumonia, mood disorder, Parkinson's disease, mixed hyperlipidemia who was sent to the emergency department from [facility] for evaluation of fevers and found to have UTI, has had seizure, while in here and bacteremia Sepsis and Acute metabolic encephalopathy in the setting of acute UTI -continue IV Abx for UTI, culture = e coli sensitive to ceftriaxone coag negative staph in blood culture - non pathogen dc vanc Breakthrough seizures in a patient with Epilepsy, prone to frequent seizure: On Keppra, felbamate, lamotrigine and divalproex. Copntinue these meds, Consulted Neurology, valium PRN for more seizures. cardiac monitoring. continue keppra lamictal increased to 50mg bid complete control of seizures is not likely Hypothyroidism continue Synthroid History of CVA: On aspirin and statin DVT prophylaxis: Lovenox Full code reason for continued hospitalization:awaiting availability of [facility] return Quality Stroke Does the patient have a stroke diagnosis?: No VTE Prior VTE?: No VTE Risk Level:: Medical - moderate - high VTE Device Contraindication: Treatment Not Indicated VTE Drug Contraindication: N/A - Med Ordered
[2023-12-21] MEDS: Milk of Magnesia 30 ML ORAL.SUSP PO (12:28)
--- NOTE | 2023-12-21 12:28 | MHC.CM.PN ---
Per discussion with MD, CM phoned [facility] and received a return call from the Home Director/Vera, who informed CM that per their policy, they are unable to accept Patient's back over the weekend because there is not a RN in house to assess them when they return. has been made aware.
[2023-12-21 15:56] VITALS: BP 123/67; PULSE 75; RESP 18; TEMP 36.1; O2SAT 93
[2023-12-21] MEDS: cefTRIAXone sodium 2 GM in 0.9 % Sodium Chloride 50 ML IV (20:27)
[2023-12-21] MEDS: clonazePAM 0.5 MG TABLET PO (20:29)
[2023-12-21] MEDS: Sertraline HCL 50 MG TABLET PO (20:30)
[2023-12-21] MEDS: Atorvastatin Calcium 20 MG TABLET PO (20:30)
[2023-12-21 20:31] VITALS: BP 111/66; PULSE 100; RESP 18; TEMP 36.1; O2SAT 94
[2023-12-22] MEDS: levETIRAcetam in NaCl (iso-os) 1,000 MG/100 ML PIGGYBACK 400 MG IV ×3 (05:13→20:08)
[2023-12-22] MEDS: Levothyroxine Sodium 88 MCG TABLET PO (05:19)
[2023-12-22] MEDS: 0.9 % Sodium Chloride Flush 3 ML SYRINGE IVFLUSH ×4 (05:20→20:09)
[2023-12-22 07:48] VITALS: BP 107/62; PULSE 73; RESP 20; TEMP 36.3; O2SAT 96
[2023-12-22] MEDS: Enoxaparin Sodium 40 MG/0.4 ML SYRINGE SUBCUT (09:37)
--- NOTE | 2023-12-22 10:44 | P.PNIM_ITS ---
Subjective Subjective Date of Service: 12/22/23 Interval History: refusing po meds Physical Exam 2 Vital Signs: Vital Signs: Last Vital Signs Temp 97.4 F 12/22/23 07:48 Pulse 73 12/22/23 07:48 Resp 20 12/22/23 07:48 BP 107/62 12/22/23 07:48 Pulse Ox 96 12/22/23 07:48 O2 Del Method Room Air 12/22/23 07:48 O2 Flow Rate 4 12/17/23 02:03 BMI result Body Mass Index 25.6 General: Alert, no acute distress, non verbal Resp: CTA bilateral CVS: S1,S2,RRR GI: +BS, NT, no distention Skin: No rash Neuro: motor grossly intact Psych: flat Objective Data Active Medications Acetaminophen (Acetaminophen 325 Mg Tablet) 650 mg PO Q6H PRN PRN Reason: Pain, Mild (Pain Scale 1-3), fever or headache Last Admin: 12/17/23 11:44 Dose: 650 mg Documented By: CIRILO Acetaminophen (Acetaminophen 325 Mg Tablet) 650 mg PO Q6H PRN PRN Reason: Fever Or Pain Acetaminophen (Acetaminophen Supp 650 Mg Supp.Rect) 650 mg MT Q4H PRN PRN Reason: Fever >100.4 Last Admin: 12/18/23 20:32 Dose: 650 mg Documented By: SANGEETA Aspirin (Aspirin 81 Mg Tab.Chew) 81 mg PO DAILY [facility] Last Admin: 12/22/23 10:40 Dose: Not Given Documented By: BELINDA Non-Admin Reason: Patient Refused Atorvastatin Calcium (Atorvastatin Calcium 20 Mg Tablet) 20 mg PO BEDTIME [facility] Last Admin: 12/21/23 20:30 Dose: 20 mg Documented By: JOSHUA Bacitracin (Bacitracin Oint 14 Gm Tube) 1 appl TOPICAL BID PRN; Protocol PRN Reason: wounds Bisacodyl (Bisacodyl 10 Mg Supp.Rect) 10 mg MT DAILY PRN PRN Reason: Constipation Calcium Carbonate (Calcium Carbonate 750 Mg Tab.Chew) 750 mg PO Q4H PRN PRN Reason: Heartburn Clonazepam (Clonazepam 0.5 Mg Tablet) 0.25 mg PO BID@0800,1200 [facility] Last Admin: 12/22/23 10:41 Dose: Not Given Documented By: BELINDA Non-Admin Reason: Patient Refused Clonazepam (Clonazepam 0.5 Mg Tablet) 0.5 mg PO BEDTIME [facility] Last Admin: 12/21/23 20:29 Dose: 0.5 mg Documented By: JOSHUA Divalproex Sodium (Divalproex Sodium Sprinkles 125 Mg ) 500 mg PO TID [facility] Last Admin: 12/22/23 10:40 Dose: Not Given Documented By: BELINDA Non-Admin Reason: Patient Refused Docusate Sodium (Docusate Sodium 100 Mg/10 Ml Liquid) 100 mg PO DAILY [facility] Last Admin: 12/22/23 10:20 Dose: Not Given Documented By: BELINDA Non-Admin Reason: Patient Refused Enoxaparin Sodium (Enoxaparin Sodium 40 Mg/0.4 Ml Syringe) 40 mg SUBCUT Q24H [facility] Last Admin: 12/22/23 09:37 Dose: 40 mg Documented By: BELINDA Guaifenesin (Guaifenesin 100 Mg/5 Ml Liquid) 10 ml PO Q6H PRN PRN Reason: Cough Ceftriaxone Sodium 2 gm/ (Sodium Chloride) 50 mls @ 100 mls/hr IV Q24H [facility] Last Infusion: 12/21/23 21:40 Dose: Infused Documented By: JOSHUA Levetiracetam (Keppra) 1,000 mg in 100 mls @ 400 mls/hr IV Q8H [facility] Last Infusion: 12/22/23 05:30 Dose: Infused Documented By: JOSHUA Lamotrigine (Lamotrigine 25 Mg Tablet) 50 mg PO BID [facility] Last Admin: 12/22/23 10:40 Dose: Not Given Documented By: BELINDA Non-Admin Reason: Patient Refused Levothyroxine Sodium (Levothyroxine Sodium 88 Mcg Tablet) 88 mcg PO DAILY@0600 [facility] Last Admin: 12/22/23 05:19 Dose: 88 mcg Documented By: JOSHUA Magnesium Hydroxide (Milk Of Magnesia 30 Ml Oral.Susp) 30 ml PO DAILY PRN PRN Reason: Constipation Magnesium Hydroxide (Milk Of Magnesia 30 Ml Oral.Susp) 30 ml PO DAILY PRN PRN Reason: Constipation Magnesium Hydroxide (Milk Of Magnesia 30 Ml Oral.Susp) 30 ml PO Q48H [facility] Last Admin: 12/21/23 12:28 Dose: 30 ml Documented By: BELINDA Melatonin (Melatonin 3 Mg Tablet) 6 mg PO BEDTIME PRN PRN Reason: Insomnia Midazolam HCl (Midazolam Hcl/Pf 2 Mg/2 Ml Vial) 5 mg IM Q10M PRN PRN Reason: Seizures Last Admin: 12/18/23 19:11 Dose: 5 mg Documented By: PAMELA Multivitamins/Vitamin C (Multivitamin Tablet) 1 tab PO DAILY [facility] Last Admin: 12/22/23 10:40 Dose: Not Given Documented By: BELINDA Non-Admin Reason: Patient Refused Pt Own( Cholecalciferol ( Vitamin D3) 1,250 Mcg (50,000 Unit) Capsule) 1,250 mcg PO WE@0900 [facility] Last Admin: 12/18/23 08:02 Dose: 1,250 mcg Documented By: ANTONY Pt Own (Felbamate (400 Mg Tablet)) 800 mg PO TID [facility] Last Admin: 12/22/23 10:40 Dose: Not Given Documented By: BELINDA Non-Admin Reason: Patient Refused Polyethylene Glycol (Polyethylene Glycol 3350 17 Gm Powd.Pack) 17 gm PO DAILY [facility] Last Admin: 12/22/23 10:21 Dose: Not Given Documented By: BELINDA Non-Admin Reason: Patient Refused Sertraline HCl (Sertraline Hcl 50 Mg Tablet) 50 mg PO BEDTIME [facility] Last Admin: 12/21/23 20:30 Dose: 50 mg Documented By: JOSHUA Sodium Biphosphate/Sodium Phosphate (Sodium Phosphate,[place]-Dibasic 133 Ml Enema) 118 ml MT DAILY PRN PRN Reason: Constipation Sodium Chloride (0.9 % Sodium Chloride Flush 3 Ml Syringe) 3 ml IVFLUSH QSHIFT [facility] Last Admin: 12/22/23 09:37 Dose: 3 ml Documented By: BELINDA Labs 12/18/23 22:14 12/21/23 06:11 Microbiology Microbiology Results: Microbiology 12/17/23 00:12 Blood Culture - Final Blood - Venous No growth after 5 days. 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, hypothyroidism, history of CVA, dysphagia, history of aspiration pneumonia, mood disorder, Parkinson's disease, mixed hyperlipidemia who was sent to the emergency department from shelter for evaluation of fevers and found to have UTI, has had seizure, while in here and bacteremia Sepsis and Acute metabolic encephalopathy in the setting of acute UTI -continue IV Abx for UTI, culture = e coli sensitive to ceftriaxone coag negative staph in blood culture - non pathogen dced vanc Breakthrough seizures in a patient with Epilepsy, prone to frequent seizure: On Keppra, felbamate, lamotrigine and divalproex. Copntinue these meds, Consulted Neurology, valium PRN for more seizures. cardiac monitoring. continue keppra lamictal increased to 50mg bid complete control of seizures is not likely Hypothyroidism continue Synthroid History of CVA: On aspirin and statin DVT prophylaxis: Lovenox Full code reason for continued hospitalization:awaiting availability of shelter return Quality Stroke Does the patient have a stroke diagnosis?: No VTE Prior VTE?: No VTE Risk Level:: Medical - moderate - high VTE Device Contraindication: Treatment Not Indicated VTE Drug Contraindication: N/A - Med Ordered
[2023-12-22] MEDS: LORazepam 2 MG/ML VIAL 0.25 MG IVPUSH (10:47)
[2023-12-22] MEDS: Divalproex Sodium Sprinkles 125 MG CAP.DR.SPR 500 MG PO ×2 (15:21→20:07)
[2023-12-22 16:00] VITALS: BP 121/59; PULSE 94; RESP 18; TEMP 36.1; O2SAT 93
[2023-12-22 20:00] VITALS: BP 116/68; PULSE 84; RESP 16; TEMP 36.3; O2SAT 96
[2023-12-22] MEDS: clonazePAM 0.5 MG TABLET PO (20:08)
[2023-12-22] MEDS: Sertraline HCL 50 MG TABLET PO (20:08)
[2023-12-22] MEDS: cefTRIAXone sodium 2 GM in 0.9 % Sodium Chloride 50 ML IV (20:08)
[2023-12-22] MEDS: Atorvastatin Calcium 20 MG TABLET PO (20:08)
[2023-12-22] MEDS: lamoTRIgine 25 MG TABLET 50 MG PO (20:08)
[2023-12-23] VITALS: BP 133/70; PULSE 83; RESP 16; TEMP 36.2; O2SAT 93
[2023-12-23 04:32] VITALS: BP 173/80; PULSE 84; RESP 16; TEMP 36; O2SAT 93
[2023-12-23] MEDS: levETIRAcetam in NaCl (iso-os) 1,000 MG/100 ML PIGGYBACK 400 MG IV (04:56)
[2023-12-23] MEDS: Levothyroxine Sodium 88 MCG TABLET PO (05:17)
[2023-12-23 07:51] VITALS: BP 121/58; PULSE 82; RESP 17; TEMP 36.3; O2SAT 95
[2023-12-23] MEDS: polyethylene glycoL 3350 17 GM POWD.PACK PO (08:48)
[2023-12-23] MEDS: Docusate Sodium 100 MG/10 ML LIQUID PO (08:49)
[2023-12-23] MEDS: Multivitamin TABLET 1 TAB PO (08:49)
[2023-12-23] MEDS: lamoTRIgine 25 MG TABLET 50 MG PO (08:51)
[2023-12-23] MEDS: Aspirin 81 MG TAB.CHEW PO (08:52)
[2023-12-23] MEDS: Divalproex Sodium Sprinkles 125 MG CAP.DR.SPR 500 MG PO (08:52)
[2023-12-23] MEDS: 0.9 % Sodium Chloride Flush 3 ML SYRINGE IVFLUSH (08:53)
[2023-12-23] MEDS: Enoxaparin Sodium 40 MG/0.4 ML SYRINGE SUBCUT (09:00)
--- NOTE | 2023-12-23 09:52 | PM.DS ---
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 Unable to obtain history from the patient. History obtained from [facility] aerospace stress engineer. Patient was running fever up to 101 degree F not resolved with Tylenol and hence he brought to the ER. Also decreased p.o. intake and lethargy. Patient is nonverbal at baseline. In the emergency department, patient was noted to have multiple episodes of non tonic-clonic seizures and was given IV Versed. Patient received all evening doses of antiepileptics prior to coming to the ER as per the aerospace stress engineer. Unable to obtain review of systems. hospital course: Patient was admitted for sepsis and acute metabolic encephalopathy due to urinary tract infection. Culture grew E coli sensitive ceftriaxone. He was treated with IV ceftriaxone will be transitioned to 5 more days of p.o. Ceftin, mental status returned to baseline sepsis resolved. For breakthrough seizures in a patient with epilepsy he was seen by neurology recommended continuing Keppra, felbamate, lamotrigine which was increased to 50 mg b.i.d. and continue Depakote. Seizures became better controlled. For hypothyroidism was continued on Synthroid. For history of CVA is on aspirin and statin. Patient is medically stable will be discharged back to [facility]. Time Attestation Discharge Coordination Time (in mins): 33 Quality: Safe Use of Opioids Does Pt have an Active Cancer Diagnosis on the Problem List?: No Quality: Stroke Does the patient have a stroke diagnosis?: No Physical Exam Vital Signs: Vital Signs: Last Vital Signs Temp 97.4 F 12/23/23 07:51 Pulse 82 12/23/23 07:51 Resp 17 12/23/23 07:51 BP 121/58 L 12/23/23 07:51 Pulse Ox 95 12/23/23 07:51 O2 Del Method Room Air 12/23/23 07:51 O2 Flow Rate 4 12/17/23 02:03 BMI result Body Mass Index 25.6 General: Alert, no acute distress, non verbal Resp: CTA bilateral CVS: S1,S2,RRR GI: +BS, NT, no distention Skin: No rash Neuro: motor grossly intact Psych: flat DS: Data Data Completed and Pending Labs on day of discharge: Preliminary micro results at discharge 12/18/23 22:14 Blood Culture - Preliminary Blood - Venous No growth after 48 hours. Discharge Plan Discharge Anticipated Discharge Date/Time: 12/23/23 09:45 Patient Disposition: Xfer Other Discharge Diagnosis: uti Referrals: Julissa Marques PA [Primary Care Provider] - 1 Week Discharge Medications: New lamotrigine 25 mg Tablet 50 mg PO BID Qty: 270 0RF cefuroxime axetil 500 mg tablet 500 mg PO BID Qty: 10 0RF Continued levetiracetam 500 mg tablet 1,000 mg PO TID bacitracin 500 unit/gram ointment 0.25 inch ophthalmic (eye) BID clonazepam 0.5 mg Tablet 0.5 mg PO BEDTIME Rx Instructions: administer 30 minutes before bedtime clonazepam 0.5 mg Tablet 0.25 mg PO BID@0800,1200 felbamate 400 mg tablet 800 mg PO TID simvastatin 40 mg tablet 40 mg PO BEDTIME levothyroxine 88 mcg tablet 88 mcg PO DAILY@0600 sertraline 50 mg tablet 50 mg PO BEDTIME divalproex [Depakote Sprinkles] 125 mg capsule, delayed rel sprinkle 500 mg PO TID cholecalciferol (vitamin D3) 1,250 mcg (50,000 unit) capsule 1,250 mcg PO WE@0900 Desitin Daily Defense 13 % cream 1 appl topical TID PRN (Reason: Rash) multivitamin with folic acid [Thera] 400 mcg tablet 1 tab PO DAILY acetaminophen 325 mg Tablet 650 mg PO Q6H PRN (Reason: Fever Or Pain) Rx Instructions: not to exceed 3000mg in 24 hours guaifenesin 100 mg/5 mL Liquid 200 mg PO Q6H PRN (Reason: Cough) magnesium hydroxide [Milk of Magnesia] 400 mg/5 mL suspension 30 ml PO Q OTHER DAY bisacodyl [OneLAX Bisacodyl] 10 mg suppository 10 mg AR DAILY PRN (Reason: Constipation) Enema Disposable 19-7 gram/118 mL enema 118 ml AR DAILY PRN (Reason: Constipation) Rx Instructions: on day 4 of no BM polyethylene glycol 3350 17 gram/dose powder 17 g PO DAILY Rx Instructions: hold for loose stools Refresh P.M. 57.3-42.5 % ointment 0.25 inch ophthalmic (eye) BEDTIME docusate sodium 50 mg/5 mL Liquid 100 mg PO DAILY aspirin 81 mg Tablet,Chewable 81 mg PO DAILY Nayzilam 5 mg/spray (0.1 mL) [place],Non-Aerosol 5 mg INTRANASAL Q10M PRN (Reason: Seizures) bacitracin 500 unit/gram Ointment 1 appl TOPICAL BID PRN (Reason: wounds) magnesium hydroxide [Milk of Magnesia] 400 mg/5 mL Suspension 30 ml PO DAILY PRN (Reason: Constipation) Discontinued lamotrigine 25 mg tablet 12.5 mg PO DAILY Discharge Orders: Discharge Order (Routine); Ordered 12/23/23 Ordered By: Sergey Wood Diet: pureed Activity on Discharge: As tolerated Stand Alone Forms: Patient Portal Discharge page Print Language: Swedish Care Plan Goals: manage uti and seizures Health Concerns: uti and seizures Plan of Treatment: lamictal increased to 50mg bid ceftin for 5 more days Assessment: see above
--- NOTE | 2023-12-23 10:36 | MHC.CM.PN ---
Pt has been medically cleared for DC, [facility], jail staff present in room, [place], was given signed orders, jail nurse notified, guardian notified via voice mail message.
== END 2023-12-23 15:36 | disposition other institution (70) | DRG 720 ==
LOC: HO.ED 12-17 02:57 → HO.EDOVER 12-17 03:16 → HO.S3 12-17 03:29 → HO.IMC 12-18 19:19
PROVIDERS: Internal Medicine; Student in an Organized Health Care Education/Training Program; Admitting Provider Student in an Organized Health Care Education/Training Program; Emergency Provider Internal Medicine; PCP Physician Assistant; Visit Provider Internal Medicine
DX: A41.9 Sepsis, unspecified organism (principal); G93.41 Metabolic encephalopathy; N39.0 Urinary tract infection, site not specified; G20.A1 Parkinson's disease without dyskinesia, without mention of fluctuations; B96.20 Unspecified Escherichia coli [E. coli] as the cause of diseases classified elsewhere; E03.9 Hypothyroidism, unspecified; E78.2 Mixed hyperlipidemia; H54.8 Legal blindness, as defined in USA; G40.812 Lennox-Gastaut syndrome, not intractable, without status epilepticus; F41.1 Generalized anxiety disorder; Z74.01 Bed confinement status; Z20.822 Contact with and (suspected) exposure to COVID-19; Z79.82 Long term (current) use of aspirin; Z79.890 Hormone replacement therapy; Z79.899 Other long term (current) drug therapy
CPT/HCPCS: 0241U; 36415; 70450; 71045; 80048; 80053; 80202; 81001; 81003; 82565; 82947; 83605; 85025; 87040; 87086; 87088; 87147; 87186; 87205; 92526; 92610; 92950; 93005; 99285; J0696; J1650; J1953; J2060; J2250; J3370; J3371; P9047

== ENCOUNTER → 2023-12-16 23:52 | Outpatient (BNV) | payer OTHER, SELFPAY | PROVIDERS: Admitting Provider Student in an Organized Health Care Education/Training Program; Emergency Provider Internal Medicine; Visit Provider Internal Medicine Cardiovascular Disease | DX: R94.31 Abnormal electrocardiogram [ECG] [EKG] (principal) | CPT/HCPCS: 93010 ==

== ENCOUNTER → 2023-12-17 00:32 | Outpatient (BNV) | payer OTHER, SELFPAY | PROVIDERS: Emergency Provider Internal Medicine; Visit Provider Student in an Organized Health Care Education/Training Program | DX: N39.0 Urinary tract infection, site not specified (principal); R56.9 Unspecified convulsions | CPT/HCPCS: 99223; 99232; 99233; 99239; 99499 ==

== ENCOUNTER → 2023-12-17 02:23 | Outpatient (BNV) | payer OTHER, SELFPAY | PROVIDERS: Admitting Provider Student in an Organized Health Care Education/Training Program; Emergency Provider Internal Medicine; Visit Provider Psychiatry & Neurology Neurology | DX: G40.813 Lennox-Gastaut syndrome, intractable, with status epilepticus (principal); A41.9 Sepsis, unspecified organism; G93.41 Metabolic encephalopathy; N39.0 Urinary tract infection, site not specified | CPT/HCPCS: 99223 ==

== ENCOUNTER 2024-07-04 18:54 | Emergency (ER) | payer OTHER, SELFPAY ==
--- NOTE | 2024-07-04 | ECG_ITS ---
Test Reason : SEIZURE Blood Pressure : / mmHG Vent. Rate : 067 BPM Atrial Rate : 067 BPM P-R Int : 178 ms QRS Dur : 088 ms QT Int : 388 ms P-R-T Axes : 044 -05 025 degrees QTc Int : 409 ms Normal sinus rhythm Normal ECG When compared with ECG of 16-DEC-2023 23:57, Vent. rate has decreased BY 45 BPM Nonspecific T wave abnormality no longer evident in Anterior leads Referred By: Generic ED Physician Electronically Signed By:RAÚL ANGULO MD
[2024-07-04 19:23] VITALS: BP 115/60; BP 120/70; PULSE 70; PULSE 75; RESP 14; TEMP 37.4; O2SAT 98; O2SAT 99; BMI 25.1
--- NOTE | 2024-07-04 19:56 | PC.NURSE ---
pt incontinent of bm ,and urine, steve care done, complete bed change, vitals , ekg done, placed on dining room captain, head of bed elevated,
--- OUTSIDE RECORDS SUMMARY | 2024-07-04 20:02 | XMS_ITS | Continuity of Care Document ---
Author Organization [facility] Address [address] [place] [address]- Care Team Providers Care Medical Engineer Name Role Phone Saulo SAMS, Darrick Primary Care Physician Encounter [facility] NBR [id number] Date(s): 06/12/24 - 06/19/[address] [address]- Encounter Diagnosis Cellulitis of great toe of right foot(Discharge Diagnosis) - 06/12/24 Attending Physician: Gonzalo SAMS, Amy Dcikson Encounter Type: Office Visit Allergies, Adverse Reactions, Alerts Substance Criticality Severity Reaction Reaction Severity Status gentamicin Unable to assess criticality Unknown Active erythromycin Unable to assess criticality Unknown Active macrolide antibiotics Active ketolides Active Immunizations Given and Recorded Vaccine Date Status Refusal Reason SARS-CoV-2(COVID-19)mRNA-LNP vac([id number]) 07/30/23 Recorded influenza virus vaccine, inactivated 1 03/20/23 Re corded influenza virus vaccine, inactivated 03/16/22 Jose Alejandro rded influenza virus vaccine, inactivated 2 04/25/21 Gi benita influenza virus vaccine, inactivated 3 04/16/20 Gi benita influenza virus vaccine, inactivated 4 03/20/19 Gi benita influenza virus vaccine, inactivated 5 07/09/17 Gi benita influenza virus vaccine, inactivated 05/09/16 Give n influenza virus vaccine, inactivated 04/29/15 Give n influenza virus vaccine, inactivated 03/12/13 Give n zoster vaccine, inactivated 12/16/22 Recorded zoster vaccine, inactivated 09/30/22 Recorded [id number] 12y+ bivalent booster vax 04/26/22 Recorded tetanus/diphtheria/pertussis, acel(Tdap) 6 11/21/21 Given SARS-CoV-2 (COVID-19) mRNA BNT-162b2 vac 04/25/21 Recorded SARS-CoV-2 (COVID-19) mRNA BNT-162b2 vac 08/22/20 Recorded SARS-CoV-2 (COVID-19) mRNA BNT-162b2 vac 07/11/20 Recorded pneumococcal 23-valent vaccine 7 07/09/17 Given FluLaval (oldterm) 04/03/12 Given Tet/Diphth/Acel, Pertussis (oldterm) 09/28/09 Give n Pneumococcal Vaccine (oldterm) 8 04/30/06 Given Hepatitis B Vaccine (old term) 9 09/11/05 Given diphtheria-tetanus toxoids (DT) 05/22/98 Given 1Result Comment: [facility] at [facility] [place] [facility] 2Result Comment: [facility] [id number] 3Result Comment: [id number] 4Result Comment: [id number] 5Result Comment: [07/09/2017] [facility]#[id number] 6Result Comment: [facility] [id number] 7Result Comment: [07/09/2017] [facility]#[id number] 8Result Comment: Lot #[id number] exp. 2007 [employer] 9Admin Note: 3rd dose Medications acetaminophen 325 mg oral tablet See Instructions, TAKE 2 TABLETS (650 MG) BY MOUTH EVERY 6 HOURS NEEDED FOR TEMP>100 OR PAIN EVIDENCED BY FACIAL GRIMACE / NTE 3,000 MG IN 24 HOURS, # 100 tablet, Refills 5, Maintenance, 05/23/22 2:03:00 PM EST, Instructions Replace Required Details, Route to Pharmacy Electronically, [facility], 180, cm, 05/21/22 10:27:00 EST, Height Start Date: 05/23/22 Status: Ordered Quantity: 100.0 Unit: tablet Repeat number: 1 Aspirin Low Dose 81 mg oral tablet, chewable 1 tablet = 81 mg, Chew, Daily, at 8am for cardiac health, # 30 tablet, 5 Refills, Maintenance, 06/19/23 8:19:00 AM EST, [facility], Partial fill upon patient request if the prescription is for aschedule II opioid drug., 180, cm, 06/18/23 11:14:00 EST, Height Start Date: 06/19/23 Status: Ordered Quantity: 30.0 Unit: tablet Repeat number: 6 bacitracin zinc 500 units/g topical ointment See Instructions, APPLY A THIN LAYER TOPICALLY TWICE DAILY NEEDED FOR SUPERFICIAL WOUNDS OR ABRASIONS FOR HEALING, # 28 Gm, 1 Refills, Maintenance, 03/09/24 4:08:00 PM EDT, [facility], 7, APPLY A THIN LAYER TOPICALLY TWICE DAILY NEEDED FOR SUPERFICIAL WOUNDS OR ABRASIONS FOR HEALING, 183, cm, 02/17/24 15:57:00 EDT, Height, 83, kg, 12/31/23 14:56:00 EDT, Dry Weight Start Date: 03/09/24 Status: Ordered Quantity: 28.0 Unit: g Repeat number: 2 bisacodyl 10 mg rectal suppository See Instructions, INSERT ONE SUPPOSITORY RECTALLY NEEDED FOR CONSTIPATION ON DAY 3 WITH NO BM, #10 supp, 5 Refills, Maintenance, 05/03/23 12:43:00 PM EDT, [facility], 180, cm, 04/16/23 11:13:00 EDT, Height Start Date: 05/03/23 Status: Ordered Quantity: 10.0 Unit: supp Repeat number: 1 clonazePAM 0.5 mg oral tablet See Instructions, TAKE 1/2 TABLET (0.25 MG) BY MOUTH IN THE MORNING, TAKE 1/2 TABLET (0.25 MG) BY MOUTH AT NOON, AND TAKE 1 TABLET BY MOUTH AT BEDTIME FOR LESLEY, # 60 tablet, 5 Refills, Soft Stop, 09/30/23 10:38:00 AM EDT, [facility], 180, cm, 06/18/23 11:14:00 EST, Height Start Date: 09/30/23 Status: Ordered Quantity: 60.0 Unit: tablet Repeat number: 6 Compression Stockings See Instructions, # 2 pack/packet, Maintenance, surgical, calf length 20-30 mm Hg, 11/30/22 9:45:00 AM EDT, Supply Start Date: 11/30/22 Status: Ordered Quantity: 2.0 Unit: pack/packet Repeat number: 1 D3-50 oral capsule See Instructions, TAKE 1 CAPSULE BY MOUTH ONCE A WEEK ON SATURDAY A SUPPLEMENT, # 4 capsule, 5 Refills, Maintenance, 05/13/23 5:12:00 PM EST, [facility], 180, cm, 04/16/23 11:13:00 EDT, Height Start Date: 05/13/23 Status: Ordered Quantity: 4.0 Unit: capsule Repeat number: 1 Desitin Rapid Relief 13% topical cream See Instructions, APPLY A THIN LAYER TOPICALLY TO CLAUDIO/ANAL AREA 3 TIMES A DAY NEEDED FOR RASH, # 57 Gm, 3 Refills, Maintenance, 06/21/23 6:55:00 AM EST, [facility], 10, APPLY A THIN LAYER TOPICALLY TO CLAUDIO/ANAL AREA 3 TIMES A DAY NEEDED FOR RASH, 180, cm, 06/18/23 11:14:00 EST, Height Start Date: 06/21/23 Status: Ordered Quantity: 57.0 Unit: g Repeat number: 1 Diapers See Instructions, # 120 each, Refills 11, Tot. Refills 11, Maintenance, Extra large size, Dx incontinence, Dx; seizure disorder length of need 99, 06/03/23 9:56:00 AM EST, [facility], 180, cm, 06/03/23 9:29:00 EST, Height Start Date: 06/03/23 Status: Ordered Quantity: 120.0 Unit: each Repeat number: 12 disposable bed pads disposable bed pads, See Instructions, # 60 each, Refills 11, Tot. Refills 11, Maintenance, dx seizure disorder., 04/29/15 10:52:12 AM EDT, Compound Start Date: 04/29/15 Status: Ordered Quantity: 60.0 Unit: each Repeat number: 12 Disposable Enema 7 g-19 g rectal enema See Instructions, USE ONE ENEMA RECTALLY NEEDED ON DAY 4 WITH NO BOWEL MOVEMENT FOR CONSTIPATION/IC FLEET ENEMA DIBASIC SODIUM PHOSPHATE 7GM MONOBASIC SODIUM PHOSPATE 19GM, # 133 mL, 1 Refills, Maintenance, 05/15/23 4:06:00 PM EST, [facility], 4, USE ONE ENEMA RECTALLY NEEDED ON DAY 4 WITH NO BOWEL MOVEMENT FOR CONSTIPATION/IC FLEET ENEMA DIBASIC SODIUM PHOSPHATE 7GM MONOBASIC SODIUM PHOSPATE 19GM, 180, cm, 04/16/23 11:13:00 EDT, Height Start Date: 05/15/23 Status: Ordered Quantity: 133.0 Unit: mL Repeat number: 1 divalproex sodium 125 mg oral delayed release capsule 4 capsule, By Mouth, 3 times a day, # 1,080 capsule, 11 Refills, Maintenance, 02/20/24 9:13:00 AM EDT, [facility], 183, cm, 02/17/24 15:57:00 EDT, Height, 83, kg, 12/31/23 14:56:00 EDT, Dry Weight Start Date: 02/20/24 Stop Date: 02/04/27 Status: Ordered Quantity: 1080.0 Unit: capsule Repeat number: 12 docusate sodium 50 mg/5 mL oral solution 10 mL = 100 mg, By Mouth, Daily, 10ml daily by mouth at 8am for constipation, # 473 mL, 5 Refills, Maintenance, 06/19/23 8:21:00 AM EST, Solution, [facility], Partial fill upon patient request if the prescription is for a schedule II opioid drug., 180, cm, 06/18/23 11:14:00 EST, Height Start Date: 06/19/23 Status: Ordered Quantity: 473.0 Unit: mL Repeat number: 6 felbamate 400 mg oral tablet 2 tablet, By Mouth, 3 times a day, # 540 tablet, 11 Refills, Maintenance, 02/20/24 9:13:00 AM EDT, [facility], 183, cm, 02/17/24 15:57:00 EDT, Height, 83, kg, 12/31/23 14:56:00 EDT, Dry Weight Start Date: 02/20/24 Stop Date: 02/04/27 Status: Ordered Quantity: 540.0 Unit: tablet Repeat number: 12 GNP MILK OF MAGNESIA 1200 M 1200 NILAY GNP MILK OF MAGNESIA 1200 M 1200 NILAY, See Instructions, # 360 mL, 10 Refills, TAKE 30ML BY MOUTH EVERY OTHER DAY AND TAKE 30 ML BY MOUTH ON 2ND DAY IF NO BM- GIVE ON OFF SCHEDULED DAY/FOR CONSTIPATIONENCOURAGE VEGETABLES+PRUNES ALSO, 180, cm, 02/22/21 13:49:00 EDT, Height Start Date: 03/30/21 Status: Ordered Quantity: 360.0 Unit: mL Repeat number: 1 guaiFENesin 100 mg/5 mL oral liquid See Instructions, PRN for cough, 10 mL By Mouth Every 6 hours, # 240 mL, 1 Refills, Maintenance, 08/10/21 4:36:00 PM EST, Liquid, [facility], Partial fill upon patient request if the prescriptionis for a schedule II opioid drug., 180, cm, 04/25/21 10:54:00 EDT, Height Start Date: 08/10/21 Status: Ordered Quantity: 240.0 Unit: mL Repeat number: 2 lamotrigine 25 mg oral tablet 25 mg, 1, tablet, By Mouth, 2 times a day, # 60 tablet, Refills 11, Tot. Refills 11, Maintenance, 02/20/24 9:13:00 AM EDT, Route to Pharmacy Electronically, [facility], Partial fill upon patient request if the prescription is for a schedule II opioid drug., 183, cm, 02/17/24 15:57:00 EDT, Height, 83, kg, 12/31/23 14:56:00 EDT, Dry Weight Start Date: 02/20/24 Status: Ordered Quantity: 60.0 Unit: tablet Repeat number: 12 levETIRAcetam 500 mg oral tablet 2 tablet, By Mouth, 3 times a day, # 540 tablet, 11 Refills, Maintenance, 02/20/24 9:14:00 AM EDT, [facility], 183, cm, 02/17/24 15:57:00 EDT, Height, 83, kg, 12/31/23 14:56:00 EDT, Dry Weight Start Date: 02/20/24 Stop Date: 02/04/27 Status: Ordered Quantity: 540.0 Unit: tablet Repeat number: 12 levothyroxine 0.088 mg oral tablet See Instructions, TAKE 1 TABLET BY MOUTH DAILY IN THE AM FOR HYPOTHYROIDISM OK TO GIVE MED ON SCHEDULED FASTING LAB DAYS UPON RETURN, # 30 tablet, 5 Refills, Maintenance, 07/07/23 6:54:00 AM EST, [facility], 180, cm, 06/18/23 11:14:00 EST, Height Start Date: 07/07/23 Status: Ordered Quantity: 30.0 Unit: tablet Repeat number: 1 midazolam 5 mg/inh nasal spray See Instructions, 5 mg in one nostril for seizure lasting longer than 5 minutes, or 4 seizures in a30 minute period. Can repeat once in 10 minutes if needed., # 3 each, 1 Refills, Maintenance, 10/07/23 10:57:00 AM EDT, [facility], need one for home, one for school and one for parent's house, 180, cm, 06/18/23 11:14:00 EST, Height Start Date: 10/07/23 Status: Ordered Quantity: 3.0 Unit: each Repeat number: 2 Milk of Magnesia 8% oral suspension See Instructions, TAKE 30ML BY MOUTH EVERY OTHER DAY AND TAKE 30 ML BY MOUTH ON 2ND DAY IF NO BM-GIVE ON OFF SCHEDULED DAY/FOR CONSTIPATION ENCOURAGE VEGETAB, # 360 mL, 10 Refills, Soft Stop, 08/31/20 11:39:00 AM EST, [facility], 180, cm, 05/10/20 15:56:00 EST, Height, 63.6, kg, 10/19/18 5:50:00EDT, Dry Weight Start Date: 08/31/20 Status: Ordered Quantity: 360.0 Unit: mL Repeat number: 11 Nayzilam 5 mg/inh nasal spray See Instructions, Administer 5mg into one nostril for seizure lasting longer than 5 minutes, or 4 seizures in a 30 minute period. can repeat once in 10 minutes if needed. 10mg if needed in 24hr period use other nostril, notify day program is used, # 6 each, 4 Refills, Maintenance, 01/06/24 1:10:00 PMEDT, [facility], 183, cm, 01/03/24 9:43:00 EDT, Height, 83, kg, 12/31/23 14:56:00 EDT, Dry Weight Start Date: 01/06/24 Status: Ordered Quantity: 6.0 Unit: each Repeat number: 5 Nayzilam 5 mg/inh nasal spray 1 sprays = 5 mg, Once, PRN Rxd by dr Sloan, 0 Refills, Maintenance, 12/05/23 9:22:00 AM EDT, Partial fill upon patient request if the prescription is for a schedule II opioid drug. Start Date: 12/05/23 Status: Ordered Repeat number: 1 Nayzilam 5 mg/inh nasal spray 1 sprays = 5 mg, Once, PRN rx by dr sloan for breakthrough seizures, 0 Refills, Maintenance, :23:00 AM EDT, Partial fill upon patient request if the prescription is for a schedule II opioid drug. Start Date: 12/05/23 Status: Ordered Repeat number: 1 One A Day Vitamin One A Day Vitamin, See Instructions, # 30 tablet, Refills 11, Tot. Refills 11, Maintenance, One tablet by mouth daily Sarah Connor [id number], 08/27/17 3:32:32 PM EST, Compound Start Date: 08/27/17 Status: Ordered Quantity: 30.0 Unit: tablet Repeat number: 12 polyethylene glycol 3350 oral powder for reconstitution See Instructions, MIX 17 GRAMS (ONE CAP FILLED TO THE LINE) WITH 8 OZ OF WATER OR JUICE AND DRINK THE MIXTURE BY MOUTH 1X DAILY FOR CONSTIPATION IN AM/HOLD FOR LOOSE STOOLS, # 510 Gm, 5 Refills, Maintenance, 07/19/23 6:45:00 PM EST, [facility], 30, MIX 17 GRAMS (ONE CAP FILLED TO THE LINE) WITH8 OZ OF WATER OR JUICE AND DRINK THE MIXTURE BY MOUTH 1X DAILY FOR CONSTIPATION IN AM/HOLD FOR LOOSE STOOLS, 180, cm, 06/18/23 11:14:00 EST, Height Start Date: 07/19/23 Status: Ordered Quantity: 510.0 Unit: g Repeat number: 1 Refresh PM Eyes, Both, Daily, 0 Refills, Maintenance, 06/18/23 11:31:00 AM EST, Partial fill upon patient request if the prescription is for a schedule II opioid drug. Start Date: 06/18/23 Status: Ordered Repeat number: 1 sertraline 50 mg oral tablet 1 tablet, By Mouth, Daily at bedtime, FOR DEPRESSION., # 90 tablet, 3 Refills, Maintenance, 02/28/2412:09:00 PM EDT, [facility], 183, cm, 02/17/24 15:57:00 EDT, Height, 83, kg, 12/31/23 14:56:00 EDT, Dry Weight Start Date: 02/28/24 Status: Ordered Quantity: 90.0 Unit: tablet Repeat number: 4 simvastatin 40 mg oral tablet See Instructions, TAKE 1 TABLET BY MOUTH AT BEDTIME FOR HYPERLIPIDEMIA, # 90 tablet, Refills 3, Tot. Refills 3, Maintenance, 03/23/24 1:10:00 PM EDT, Instructions Replace Required Details, Route to Pharmacy Electronically, [facility], 183, cm, 02/17/24 15:57:00 EDT, Height, 83, kg, 12/31/23 14:56:00 EDT, Dry Weight Start Date: 03/23/24 Status: Ordered Quantity: 90.0 Unit: tablet Repeat number: 4 Splint See Instructions, # 1 each, Maintenance, left hand/wrist resting splint Dx contracture, 01/09/19 10:45:06 AM EDT, Compound Start Date: 01/09/19 Status: Ordered Quantity: 1.0 Unit: each Repeat number: 1 Thera oral tablet By Mouth, Daily, 0 Refills, Maintenance, 06/18/23 11:30:00 AM EST, Partial fill upon patient request if the prescription is for a schedule II opioid drug. Start Date: 06/18/23 Status: Ordered Repeat number: 1 Thera oral tablet 1 tablet, By Mouth, Daily in AM, # 30 tablet, 5 Refills, Maintenance, 03/13/23 6:56:00 PM EDT, [facility], 30, TAKE 1 TABLET BY MOUTH ONCE DAILY FOR NUTRITIONAL SUPPORT (MULTIVITAMIN) IN AM, 180,cm, 03/06/23 12:44:00 EDT, Height Start Date: 03/13/23 Status: Ordered Quantity: 30.0 Unit: tablet Repeat number: 1 Thick It Thick It, See Instructions, # 1 Unknown, Refills 11, Tot. Refills 11, Maintenance, Mix 2 tbsp to 4oz of thin liquid. Mix to honey thick consistency for dysphagia, 06/19/23 8:24:00 AM EST, Supply, 180, cm, 06/18/23 11:14:00 EST, Height Start Date: 06/19/23 Status: Ordered Quantity: 1.0 Unit: Unknown Repeat number: 12 Problem List Condition Confirmation Course Effective Dates Status H ealth Status Informant Atrophy of thyroid (acquired) Confirmed Active Blindness Confirmed Active COVID-19 Confirmed 07/2020 Active Hypothyroidism Confirmed Active Impaired physical mobility Confirmed Active Intellectual disability Confirmed Active Milaca-Gastaut syndrome Confirmed Active Mental retardation Confirmed Active Mixed hyperlipidemia Confirmed Active Mood disorder Confirmed Active Osteopenia Confirmed Active Seizure disorder Confirmed Active Diagnosis Diagnosis Type Effective Dates Health Status Clinical Service Informant Cellulitis of great toe of right foot Discharge Diagnosis 06/12/24 Vital Signs Most recent to oldest [Reference Range]: 1 Height 183 cm (06/12/24 11:01 AM) Oxygen Saturation [94-100 %] 100 % (06/12/24 11:01 AM) Pulse Rate [55-90 bpm] 64 bpm (06/12/24 11:01 AM) Blood Pressure [90-138/55-84 mm Hg] 105/ 69mm Hg (06/12/24 11:01 AM) Social History Social History Type Response Smoking Status Never smoker; Tobacc o user in household: No entered on: 05/30/17 Sex Sex Representation Male (finding) Note * Roxy Kuhn: PERFORM Event Display: Patient Education/Instruction Authored Date: Ambulatory Adult Visit Summary [facility] [place] [facility] [address] [address] Name: JENNIFER JACKSON : 1965?? Visit: 06/12/2024 10:55?? Ambulatory Visit Instructions ?? Your Care Team Primary Care Provider Darrick Vernon NP? This Visit Provider Amy Sánchez NP Your Diagnosis Cellulitis of great toe of right foot Vitals Signs Pulse Rate: 64 bpm Height: 183 cm Systolic Blood Pressure: 105 mm Hg ?? Diastolic Blood Pressure: 69 mm Hg ?? Oxygen Saturation: 100 % ?? What to do next Future Orders Valproic Acid Level - Routine, Once, 12/31/23 3:00:00 EDT, Single or Recurring Future Order, [facility], Blood?? Levetiracetam Level - Routine, Once, 12/31/23 3:00:00 EDT, Single or Recurring Future Order, [facility], Blood?? CBC w/ Differential - Routine, Once, 12/31/23 3:00:00 EDT, Single or Recurring Future Order, [facility], Blood?? Hepatic Function Panel (LFT's) - Routine, Once, 12/31/23 3:00:00 EDT, Single or Recurring Future Order, [facility], Blood?? Ammonia Venous - Routine, Once, 12/31/23 3:00:00 EDT, Single or Recurring Future Order, [facility], Blood?? Medications The list below reflects the information in our records and provided by you today along with any changes made during this visit. Please continue your medications until treatment is completed or stopped by your provider. If this is different from the information you have or there are other questions,please contact the prescribing provider. What How Much When Why Instructions New Sulfamethoxazole/ Trimethoprim (Bactrim DS 800 mg-160 mg oral tablet) 1 tab(s) Oral Every 12 hours Cellulitis of great toe of right foot Duration: 3 Days Pickup at [facility] Unchanged Acetaminophen (acetaminophen 325 mg oral tablet) See instructions TAKE 2 TABLETS (650 MG) BY MOUTH EVERY 6 HOURS NEEDED FOR TEMP>100 OR PAIN EVIDENCED BY FACIAL GRIMACE / ??NTE 3,000 MG IN 24 HOURS ?? Unchanged Aspirin (Aspirin Low Dose 81 mg oral tablet, chewable) 1 tab(s) Chew Daily at 8am for cardiac health ?? Unchanged Bacitracin Topical (bacitracin zinc 500 units/ g topical ointment) See instructions APPLY A THIN LAYER TOPICALLY TWICE DAILY NEEDED FOR SUPERFICIAL WOUNDS OR ABRASIONS FOR HEALING ?? Unchanged Bisacodyl (bisacodyl 10 mg rectal suppository) See instructions INSERT ONE SUPPOSITORY RECTALLY NEEDED FOR CONSTIPATION ON DAY 3 WITH NO BM ?? Unchanged Cholecalciferol (D3-50 oral capsule) See instructions TAKE 1 CAPSULE BY MOUTH ONCE A WEEK ON SATURDAY A SUPPLEMENT ?? Unchanged Clonazepam (clonazePAM 0.5 mg oral tablet) See instructions TAKE 1/ 2 TABLET (0.25 MG) BY MOUTH IN THE MORNING, TAKE 1/ 2 TABLET (0.25 MG) BY MOUTH AT NOON, AND TAKE 1 TABLET BY MOUTH AT BEDTIME FOR LESLEY ?? Unchanged Divalproex Sodium (divalproex sodium 125 mg oral delayed release capsule) 4 capsule Oral 3 times a day Duration: 90 Days Unchanged Docusate (docusate sodium 50 mg/ 5 mL oral solution) 10 Milliliter Oral Daily 10ml daily by mouth at 8am for constipation ?? Unchanged Durable Medical Equipment (Compression Stockings) See instructions surgical, calf length 20-30 mm Hg ?? Unchanged Durable Medical Equipment (Diapers) See instructions Extra large size, Dx incontinence, Dx; seizure disorder length of need 99 ?? Unchanged Durable Medical Equipment (disposable bed pads) See instructions dx seizure disorder. ?? Unchanged Durable Medical Equipment (Splint) See instructions left hand/ wrist resting splint Dx contracture ?? Unchanged Felbamate (felbamate 400 mg oral tablet) 2 tab(s) Oral 3 times a day Duration: 90 Days Unchanged Guaifenesin (guaiFENesin 100 mg/ 5 mL oral liquid) See instructions 10 mL By Mouth Every 6 hours, As needed for for cough ?? Unchanged Lamotrigine (lamotrigine 25 mg oral tablet) 1 tab(s) Oral Twice a day Unchanged levETIRAcetam (levETIRAcetam 500 mg oral tablet) 2 tab(s) Oral 3 times a day Duration: 90 Days Unchanged Levothyroxine (levothyroxine 0.088 mg oral tablet) See instructions TAKE 1 TABLET BY MOUTH DAILY IN THE AM FOR HYPOTHYROIDISM OK TO GIVE MED ON SCHEDULED FASTING LAB DAYS UPON RETURN ?? Unchanged Midazolam (midazolam 5 mg/ inh nasal spray) See instructions 5 mg in one nostril for seizure lasting longer than 5 minutes, or 4 seizures in a 30 minute period.??Can repeat once in 10 minutes if needed. ?? Unchanged Midazolam (Nayzilam 5 mg/ inh nasal spray) 1 spray(s) Once as needed for Rxd by dr Sloan Unchanged Midazolam (Nayzilam 5 mg/ inh nasal spray) 1 spray(s) Once as needed for rx by dr sloan for breakthrough seizures Unchanged Midazolam (Nayzilam 5 mg/ inh nasal spray) See instructions Administer 5mg into one nostril for seizure lasting longer than 5 minutes, or 4 seizures in a 30 minute period. can repeat once in 10 minutes if needed. 10mg if needed in 24hr period use other nostril, notify day program is used ?? Unchanged Milk of Magnesia (Milk of Magnesia 8% oral suspension) See instructions TAKE 30ML BY MOUTH EVERY OTHER DAY AND TAKE 30 ML BY MOUTH ON 2ND DAY IF NO BM- GIVE ON OFF SCHEDULED DAY/ FOR CONSTIPATION ENCOURAGE VEGETAB ?? Unchanged Miscellaneous Rx (GNP MILK OF MAGNESIA 1200 M 1200 NILAY) See instructions TAKE 30ML BY MOUTH EVERY OTHER DAY AND TAKE 30 ML BY MOUTH ON 2ND DAY IF NO BM- GIVE ON OFF SCHEDULED DAY/ FOR CONSTIPATION ENCOURAGE VEGETABLES+PRUNES ALSO ?? Unchanged Miscellaneous Rx (One A Day Vitamin) See instructions One tablet by mouth daily Sarah Connor [id number] ?? Unchanged Miscellaneous Rx (Thick It) See instructions Mix 2 tbsp to 4oz of thin liquid. Mix to honey thick consistency ?? for dysphagia ?? Unchanged Multivitamin (Thera oral tablet) Oral Daily Unchanged Multivitamin (Thera oral tablet) 1 tab(s) Oral Daily in the morning Unchanged Ocular Lubricant (Refresh PM) Both eyes Daily Unchanged Polyethylene Glycol 3350 (polyethylene glycol 3350 oral powder for reconstitution) See instructions MIX 17 GRAMS (ONE CAP FILLED TO THE LINE) WITH 8 OZ OF WATER OR JUICE AND DRINK THE MIXTURE BY MOUTH 1X DAILY FOR CONSTIPATION IN AM/ HOLD FOR LOOSE STOOLS ?? Unchanged Sertraline (sertraline 50 mg oral tablet) 1 tab(s) Oral Daily at Bedtime FOR DEPRESSION. ?? Unchanged Simvastatin (simvastatin 40 mg oral tablet) See instructions TAKE 1 TABLET BY MOUTH AT BEDTIME FOR HYPERLIPIDEMIA ?? Unchanged Sodium Biphosphate-Sodium Phosphate (Disposable Enema 7 g-19 g rectal enema) See instructions USE ONE ENEMA RECTALLY NEEDED ON DAY 4 WITH NO BOWEL MOVEMENT FOR CONSTIPATION/ IC FLEET ENEMA DIBASIC SODIUM PHOSPHATE 7GM MONOBASIC SODIUM PHOSPATE 19GM ?? Unchanged Zinc Oxide Topical (Desitin Rapid Relief 13% topical cream) See instructions APPLY A THIN LAYER TOPICALLY TO CLAUDIO/ ANAL AREA 3 TIMES A DAY NEEDED FOR RASH ?? Pharmacy Information [facility]: [address] [phone] Medications and Immunizations Administered Medications Given During Visit No medications given during this visit.?? Allergies (NKA means No Known Allergies) erythromycin gentamicin ketolides macrolide antibiotics Common Emergency Awareness Tips IS IT A STROKE? Act FAST and Check for these signs: FACE Does the face look uneven? ARM Does one arm drift down? SPEECH Does their speech sound strange? TIME Call at any sign of stroke ?? Heart Attack Signs Chest discomfort: Most heart attacks involve discomfort in the center of the chest and lasts more than a few minutes, or goes away and comes back. It can feel like uncomfortable pressure, squeezing, fullness or pain. Discomfort in upper body: Symptoms can include pain or discomfort in one or both arms, back, neck, jaw or stomach. Shortness of breath: With or without discomfort. Other signs: Breaking out in a cold sweat, nausea, or lightheaded. Remember, MINUTES DO MATTER. If you experience any of these heart attack warning signs, call to get immediate medical attention! ?? Smoking can increase your chances of developing chronic health problems and can cause harmful effects to other family members in your house. If you smoke, you are strongly encouraged to quit. Please call [facility] at [phone] or [phone] or log in to [email or web address] for referrals to smoking cessation programs. ?? The National Suicide Prevention Hotline is available 21/01 if you or someone you know needs to find a reason to keep living. By calling 1-805-507-Deporvillage ([phone] you'll be connected to a skilled, trained counselor at a crisis center in your area. [facility] Wik[facility] Portal You can view and manage your care through the patient portal or by using a health care michele of your choosing. [employer] is a website that allows you to securely view your medical information including your hospital discharge summary, office visit summaries, medications and follow-up visits. You can also request appointments, renew medications, and request access to your medical information using a health care michele of your choosing, or just ask a question. You can enroll at [email or web address] or register during your next office visit. [facility], in keeping with [facility] guidance, no longer requires face masks for staff, patientsor visitors in most situations. Similiar to time spent indoors at other locations, there is the chance that you were exposed to repiratory viruses during your time with us (such as flu or COVID-19). If you develop symptoms concerning for a viral respiratory infection, please seek testing (and treatment if indicated) from your medical provider or home test kit. ?? Disclaimer: The information provided is of a general nature and is intended to be used in conjunction with the recommendations and advice of your health care practitioner. Every effort has been made to ensure that the information provided is accurate and complete at the time it is provided to you however, as your needs change, or, as new information becomes available, different or additional instructions may be required. ?? If you have questions, please consult with your primary care provider or pharmacist, as appropriate. This information is not intended to serve as substitution for assessment and evaluation by a qualified health care provider. If you do not have a primary care provider, you may find a [facility] provider by calling [facility] at [phone]. Patient Care team information Care Team Personnel Name: Darrick Vernon NP Position: [facility] PCO Associate Professional Member Role: PCP Address: [address] [place] [id number] Telecom: Name: Jason Boland RN Position: [facility] ED RN W/OE and Tasks Member Role: Primary Care Nurse Name: Krystle Nelson RN Position: [facility] RN Member Role: Primary Care Nurse Name: Marcy Mullen RN Position: [facility] HBO Wound Member Role: Primary Care Nurse Name: Lisa Montoya MD Position: [facility] Physician - Primary Care Member Role: [employer] Consulting Physician Address: [address] [place] [address] Geriatric [facility] [place] [address]- Telecom: Name: Olive Reyna RN Position: [facility] RN Member Role: Primary Care Nurse Name: Kim Aviles RN Position: [facility] AMB Nurse Member Role: Primary Care Nurse Name: Maru Heart RN Position: [facility] RN Member Role: Primary Care Nurse Name: Amy Mark Position: [facility] AMB [place] Member Role: Primary Care Nurse Care Team Related Persons Name: EREN JERNIGAN Name: DI CARDOZA Name: CEASAR KENDRICK Name: RYLIE COLLADO Insurance Providers Guarantor name: [facility] Health Plan Information #: 1 Payer: [facility] Member Number: [id number] Policy Number: NA Group Number: [id number] Health Plan Information #: 2 Payer: [facility] Member Number: [id number] Policy Number: NA Group Number: [id number]
--- OUTSIDE RECORDS SUMMARY | 2024-07-04 20:02 | XMS_ITS | Continuity of Care Document ---
Author Organization [facility] Address [address] [place] [address]- Care Team Providers Care Geriatric Assistant Name Role Phone Darrick Vernon NP Primary Care Physician [id number] Date[facility] [address] [address]- Encounter Type: Triage Allergies, Adverse Reactions, Alerts Substance Criticality Severity Reaction Reaction Severity Status gentamicin Unable to assess criticality Unknown Active erythromycin Unable to assess criticality Unknown Active macrolide antibiotics Active ketolides Active Immunizations Given and Recorded Vaccine Date Status Refusal Reason SARS-CoV-2(COVID-19)mRNA-LNP vac([id number]) 07/30/23 Recorded influenza virus vaccine, inactivated 1 [...] 12/16/22 Recorded zoster vaccine, inactivated 09/30/22 Recorded [id number] 12y+ bivalent booster vax 04/26/22 Recorded tetanus/diphtheria/pertussis, [...] 05/22/98 Given 1Result Comment: done at the [facility] 2Result Comment: [facility] 04222-710-10 3Result Comment: [id number] 4Result Comment: [id number] 5Result Comment: [07/09/2017] [facility]#[id number] 6Result Comment: [facility] [id number] 7Result Comment: [07/09/2017] [facility]#[id number] 8Result Comment: Lot #[id number] exp. 2007 [employer] 9Admin Note: 3rd dose Medications acetaminophen 325 mg oral tablet See Instructions, TAKE 2 TABLETS (650 MG) BY MOUTH EVERY 6 HOURS NEEDED FOR TEMP>100 OR PAIN EVIDENCED BY FACIAL GRIMACE / NTE 3,000 MG IN 24 HOURS, # 100 tablet, Refills 5, Maintenance, 05/23/22 2:03:00 PM EST, Instructions Replace Required Details, Route to Pharmacy Electronically, [facility], 180, cm, 05/21/22 10:27:00 EST, Height Start Date: 05/23/22 Status: Ordered Quantity: 100.0 Unit: tablet Repeat number: 1 Aspirin Low Dose 81 mg oral tablet, chewable 1 tablet = 81 mg, Chew, Daily, at 8am for cardiac health, # 30 tablet, 5 Refills, Maintenance, 06/19/23 8:19:00 AM EST, [facility], Partial fill upon patient request if [...] 1 Refills, Maintenance, 03/09/24 4:08:00 PM EDT, [facility], 7, APPLY A THIN LAYER TOPICALLY [...] 5 Refills, Maintenance, 05/03/23 12:43:00 PM EDT, [facility], 180, cm, 04/16/23 11:13:00 EDT, Height [...] Refills, Soft Stop, 09/30/23 10:38:00 AM EDT, [facility], 180, cm, 06/18/23 11:14:00 EST, Height [...] 5 Refills, Maintenance, 05/13/23 5:12:00 PM EST, [facility], 180, cm, 04/16/23 11:13:00 EDT, Height Start Date: 05/13/23 Status: Ordered Quantity: 4.0 Unit: capsule Repeat number: 1 Desitin Rapid Relief 13% topical cream See Instructions, APPLY A THIN LAYER TOPICALLY TO CLAUDIO/ANAL AREA 3 TIMES A DAY NEEDED FOR RASH, # 57 Gm, 3 Refills, Maintenance, 06/21/23 6:55:00 AM EST, [facility], 10, APPLY A THIN LAYER TOPICALLY [...] 1 Refills, Maintenance, 05/15/23 4:06:00 PM EST, [facility], 4, USE ONE ENEMA RECTALLY NEEDED [...] 11 Refills, Maintenance, 02/20/24 9:13:00 AM EDT, [facility], 183, cm, 02/17/24 15:57:00 EDT, Height, 83, kg, 12/31/23 14:56:00 EDT, Dry Weight Start Date: 02/20/24 Stop Date: 02/04/27 Status: Ordered Quantity: 1080.0 Unit: capsule Repeat number: 12 docusate sodium 50 mg/5 mL oral solution 10 mL = 100 mg, By Mouth, Daily, 10ml daily by mouth at 8am for constipation, # 473 mL, 5 Refills, Maintenance, 06/19/23 8:21:00 AM EST, Solution, [facility], Partial fill upon patient request if the prescription is for a schedule II opioid drug., 180, cm, 06/18/23 11:14:00 EST, Height Start Date: 06/19/23 Status: Ordered Quantity: 473.0 Unit: mL Repeat number: 6 felbamate 400 mg oral tablet 2 tablet, By Mouth, 3 times a day, # 540 tablet, 11 Refills, Maintenance, 02/20/24 9:13:00 AM EDT, [facility], 183, cm, 02/17/24 15:57:00 EDT, Height, [...] Refills, Maintenance, 08/10/21 4:36:00 PM EST, Liquid, [facility], Partial fill upon patient request if [...] 9:13:00 AM EDT, Route to Pharmacy Electronically, [facility], Partial fill upon patient request if the prescription is for a schedule II opioid drug., 183, cm, 02/17/24 15:57:00 EDT, Height, 83, kg, 12/31/23 14:56:00 EDT, Dry Weight Start Date: 02/20/24 Status: Ordered Quantity: 60.0 Unit: tablet Repeat number: 12 levETIRAcetam 500 mg oral tablet 2 tablet, By Mouth, 3 times a day, # 540 tablet, 11 Refills, Maintenance, 02/20/24 9:14:00 AM EDT, [facility], 183, cm, 02/17/24 15:57:00 EDT, Height, [...] 5 Refills, Maintenance, 07/07/23 6:54:00 AM EST, [facility], 180, cm, 06/18/23 11:14:00 EST, Height Start Date: 07/07/23 Status: Ordered Quantity: 30.0 Unit: tablet Repeat number: 1 midazolam 5 mg/inh nasal spray See Instructions, 5 mg in one nostril for seizure lasting longer than 5 minutes, or 4 seizures in a30 minute period. Can repeat once in 10 minutes if needed., # 3 each, 1 Refills, Maintenance, 10/07/23 10:57:00 AM EDT, [facility], need one for home, one for [...] # 360 mL, 10 Refills, Soft Stop, 06/22/24 1:02:00 PM EST, [facility], 183, cm, 06/12/24 11:01:00 EST, Height, 83, kg, 12/31/23 14:56:00 EDT, Dry Weight Start Date: 06/22/24 Status: Ordered Quantity: 360.0 Unit: mL Repeat number: 11 Nayzilam 5 mg/inh nasal spray See Instructions, Administer 5mg into one nostril for seizure lasting longer than 5 minutes, or 4 seizures in a 30 minute period. can repeat once in 10 minutes if needed. 10mg if needed in 24hr period use other nostril, day program is used, # 6 each, 4 Refills, Maintenance, 01/06/24 1:10:00 PMEDT, [facility], 183, cm, 01/03/24 9:43:00 EDT, Height, 83, [...] sloan for breakthrough seizures, 0 Refills, Maintenance, 249:23:00 AM EDT, Partial fill upon patient request if the prescription is for a schedule II opioid drug. Start Date: 12/05/23 Status: Ordered Repeat number: 1 One A Day Vitamin One A Day Vitamin, See Instructions, # 30 tablet, Refills 11, Tot. Refills 11, Maintenance, One tablet by mouth daily Sarah Connor [id number], 08/27/17 3:32:32 PM EST, Compound Start Date: [...] 5 Refills, Maintenance, 07/19/23 6:45:00 PM EST, [facility], 30, MIX 17 GRAMS (ONE CAP [...] tablet, 3 Refills, Maintenance, 02/28/2412:09:00 PM EDT, [facility], 183, cm, 02/17/24 15:57:00 EDT, Height, 83, kg, 12/31/23 14:56:00 EDT, Dry Weight Start Date: 02/28/24 Status: Ordered Quantity: 90.0 Unit: tablet Repeat number: 4 simvastatin 40 mg oral tablet See Instructions, TAKE 1 TABLET BY MOUTH AT BEDTIME FOR HYPERLIPIDEMIA, # 90 tablet, Refills 3, Tot. Refills 3, Maintenance, 03/23/24 1:10:00 PM EDT, Instructions Replace Required Details, Route to Pharmacy Electronically, [facility], 183, cm, 02/17/24 15:57:00 EDT, Height, [...] 5 Refills, Maintenance, 03/13/23 6:56:00 PM EDT, [facility], 30, TAKE 1 TABLET BY MOUTH [...] mobility Confirmed Active Intellectual disability Confirmed Active Stapleton-Gastaut syndrome Confirmed Active Mental retardation Confirmed Active Mixed hyperlipidemia Confirmed Active Mood disorder Confirmed Active Osteopenia Confirmed Active Seizure disorder Confirmed Active Social History Social History Type Response Smoking Status Never smoker; Tobacc o user in household: No entered on: 05/30/17 Sex Sex Representation Male (finding) Patient Care team information Care Team Personnel Name: Darrick Vernon NP Position: [facility] PCO Associate Professional Member Role: PCP Address: [address] [place] [address] [place] [address]- Telecom: Name: Jason Boland RN Position: [facility] ED RN W/OE and Tasks Member Role: Primary Care Nurse Name: Krystle Nelson RN Position: [facility] RN Member Role: Primary Care Nurse Name: Marcy Mullen RN Position: [facility] HBO Wound Member Role: Primary Care Nurse Name: Lisa Montoya MD Position: [facility] Physician - Primary Care Member Role: [employer] Consulting Physician Address: [address] [place] [address] Geriatric & [place] [address]- Telecom: Name: Olive Reyna RN Position: [facility] RN Member Role: Primary Care Nurse Name: Kim Aviles RN Position: [facility] AMB Nurse Member Role: Primary Care Nurse Name: Maru Heart RN Position: [facility] SN RN Member Role: Primary Care Nurse Name: Amy Mark Position: [facility] AMB [place] Member Role: Primary Care Nurse Care Team Related Persons Name: EREN JERNIGAN Name: DI CARDOZA Name: CEASAR KENDRICK Name: RYLIE COLLADO Insurance Providers Guarantor name: [facility] Plan Information #: 1 Payer: [facility] Member Number: NA Policy Number: NA Group Number: NA
--- OUTSIDE RECORDS SUMMARY | 2024-07-04 20:02 | XMS_ITS | Continuity of Care Document ---
Author Organization [facility] Address [address] [place] [address]- Care Team Providers Care Towel Rolling Machine Operator Name Role Phone Darrick Vernon NP Primary Care Phys[id number] Date(s): 06/03/24 - 06/10/[address] [address]- Encounter Diagnosis OM (onychomycosis)(Discharge Diagnosis) - 06/03/24 Infection of toe(Discharge Diagnosis) - 06/03/24 Attending Physician: Darrick Vernon NP Encounter Type: Office Visit Allergies, Adverse Reactions, Alerts Substance Criticality Severity Reaction Reaction Severity Status gentamicin Unable to assess criticality Unknown Active erythromycin Unable to assess criticality Unknown Active macrolide antibiotics Active ketolides Active Immunizations Given and Recorded Vaccine Date Status Refusal Reason SARS-CoV-2(COVID-19)mRNA-LNP vac([id number]) 07/30/23 Recorded influenza virus vaccine, inactivated 1 [...] 12/16/22 Recorded zoster vaccine, inactivated 09/30/22 Recorded [id number] 12y+ bivalent booster vax 04/26/22 Recorded tetanus/diphtheria/pertussis, [...] 05/22/98 Given 1Result Comment: done at the intermediate 2Result Comment: [facility] 39072-051-15 3Result Comment: [id number] 4Result Comment: [id number] 5Result Comment: [07/09/2017] [facility]#[id number] 6Result Comment: [facility] [id number] 7Result Comment: [07/09/2017] [facility]#[id number] 8Result Comment: Lot #[id number] exp. 2007 [employer] 9Admin Note: 3rd dose Medications acetaminophen 325 mg oral tablet See Instructions, TAKE 2 TABLETS (650 MG) BY MOUTH EVERY 6 HOURS NEEDED FOR TEMP>100 OR PAIN EVIDENCED BY FACIAL GRIMACE / NTE 3,000 MG IN 24 HOURS, # 100 tablet, Refills 5, Maintenance, 05/23/22 2:03:00 PM EST, Instructions Replace Required Details, Route to Pharmacy Electronically, [facility], 180, cm, 05/21/22 10:27:00 EST, Height Start Date: 05/23/22 Status: Ordered Quantity: 100.0 Unit: tablet Repeat number: 1 Aspirin Low Dose 81 mg oral tablet, chewable 1 tablet = 81 mg, Chew, Daily, at 8am for cardiac health, # 30 tablet, 5 Refills, Maintenance, 06/19/23 8:19:00 AM EST, [facility], Partial fill upon patient request if [...] 1 Refills, Maintenance, 03/09/24 4:08:00 PM EDT, [facility], 7, APPLY A THIN LAYER TOPICALLY TWICE [...] 5 Refills, Maintenance, 05/03/23 12:43:00 PM EDT, [facility], 180, cm, 04/16/23 11:13:00 EDT, Height [...] Refills, Soft Stop, 09/30/23 10:38:00 AM EDT, [facility], 180, cm, 06/18/23 11:14:00 EST, Height Start [...] 5 Refills, Maintenance, 05/13/23 5:12:00 PM EST, [facility], 180, cm, 04/16/23 11:13:00 EDT, Height Start Date: 05/13/23 Status: Ordered Quantity: 4.0 Unit: capsule Repeat number: 1 Desitin Rapid Relief 13% topical cream See Instructions, APPLY A THIN LAYER TOPICALLY TO CLAUDIO/ANAL AREA 3 TIMES A DAY NEEDED FOR RASH, # 57 Gm, 3 Refills, Maintenance, 06/21/23 6:55:00 AM EST, [facility], 10, APPLY A THIN LAYER TOPICALLY [...] mL, 1 Refills, Maintenance, [facility], USE ONE ENEMA RECTALLY NEEDED [...] 11 Refills, Maintenance, 02/20/24 9:13:00 AM EDT, [facility], 183, cm, 02/17/24 15:57:00 EDT, Height, 83, kg, 12/31/23 14:56:00 EDT, Dry Weight Start Date: 02/20/24 Stop Date: 02/04/27 Status: Ordered Quantity: 1080.0 Unit: capsule Repeat number: 12 docusate sodium 50 mg/5 mL oral solution 10 mL = 100 mg, By Mouth, Daily, 10ml daily by mouth at 8am for constipation, # 473 mL, 5 Refills, Maintenance, 06/19/23 8:21:00 AM EST, Solution, [facility], Partial fill upon patient request if the prescription is for a schedule II opioid drug., 180, cm, 06/18/23 11:14:00 EST, Height Start Date: 06/19/23 Status: Ordered Quantity: 473.0 Unit: mL Repeat number: 6 felbamate 400 mg oral tablet 2 tablet, By Mouth, 3 times a day, # 540 tablet, 11 Refills, Maintenance, 02/20/24 9:13:00 AM EDT, [facility], 183, cm, 02/17/24 15:57:00 EDT, Height, [...] Refills, Maintenance, 08/10/21 4:36:00 PM EST, Liquid, [facility], Partial fill upon patient request if [...] 9:13:00 AM EDT, Route to Pharmacy Electronically, [facility], Partial fill upon patient request if [...] 11 Refills, Maintenance, 02/20/24 9:14:00 AM EDT, [facility], 183, cm, 02/17/24 15:57:00 EDT, Height, [...] 5 Refills, Maintenance, 07/07/23 6:54:00 AM EST, [facility], 180, cm, 06/18/23 11:14:00 EST, Height Start Date: 07/07/23 Status: Ordered Quantity: 30.0 Unit: tablet Repeat number: 1 midazolam 5 mg/inh nasal spray See Instructions, 5 mg in one nostril for seizure lasting longer than 5 minutes, or 4 seizures in a30 minute period. Can repeat once in 10 minutes if needed., # 3 each, 1 Refills, Maintenance, 10/07/23 10:57:00 AM EDT, [facility], need one for home, one for [...] Refills, Soft Stop, 08/31/20 11:39:00 AM EST, [facility], 180, cm, 05/10/20 15:56:00 EST, Height, [...] each, 4 Refills, Maintenance, 01/06/24 1:10:00 PMEDT, [facility], 183, cm, 01/03/24 9:43:00 EDT, Height, [...] One tablet by mouth daily Sarah Connor [id number], 08/27/17 3:32:32 PM EST, Compound Start Date: [...] 5 Refills, Maintenance, 07/19/23 6:45:00 PM EST, [facility], 30, MIX 17 GRAMS (ONE CAP [...] tablet, 3 Refills, Maintenance, 02/28/2412:09:00 PM EDT, [facility], 183, cm, 02/17/24 15:57:00 EDT, Height, 83, kg, 12/31/23 14:56:00 EDT, Dry Weight Start Date: 02/28/24 Status: Ordered Quantity: 90.0 Unit: tablet Repeat number: 4 simvastatin 40 mg oral tablet See Instructions, TAKE 1 TABLET BY MOUTH AT BEDTIME FOR HYPERLIPIDEMIA, # 90 tablet, Refills 3, Tot. Refills 3, Maintenance, 03/23/24 1:10:00 PM EDT, Instructions Replace Required Details, Route to Pharmacy Electronically, [facility], 183, cm, 02/17/24 15:57:00 EDT, Height, [...] 5 Refills, Maintenance, 03/13/23 6:56:00 PM EDT, [facility], 30, TAKE 1 TABLET BY MOUTH [...] mobility Confirmed Active Intellectual disability Confirmed Active Franklin-Gastaut syndrome Confirmed Active Mental retardation Confirmed Active Mixed hyperlipidemia Confirmed Active Mood disorder Confirmed Active Osteopenia Confirmed Active Seizure disorder Confirmed Active Diagnosis Diagnosis Type Effective Dates Health Status Cl inical Service Informant OM (onychomycosis) Discharge Diagnosis 06/03/24 Infection of toe Discharge Diagnosis 06/03/24 Vital Signs Most recent to oldest [Reference Range]: 1 Height 183 cm (06/03/24 1:37 PM) Oxygen Saturation [94-100 %] 94 % (06/03/24 1:37 PM) Pulse Rate [55-90 bpm] 64 bpm (06/03/24 1:37 PM) Temperature [96.8-100.4 DegF] 97.4 DegF (06/03/24 1:37 PM) Mode of Delivery (Oxygen) Room air (06/03/24 1:37 PM) Temperature Route Temporal (06/03/24 1:37 PM) Social History Social History Type Response Smoking Status Never smoker; Tobacc o user in household: No entered on: 05/30/17 Sex Sex Representation Male (finding) Note * Roxy Kuhn: PERFORM Event Display: Patient Education/Instruction Authored Date: [id number] Ambulatory Adult Visit Summary [facility] [address] [address] Name: JENNIFER JACKSON : 1965?? Visit: 06/03/2024 13:32?? Ambulatory Visit Instructions ?? Your Care Team Primary Care Provider Darrick Vernon NP? This Visit Provider Darrick Vernon NP Vitals Signs Temperature: 97.4 DegF Height: 183 cm Pulse Rate: 64 bpm ?? Oxygen Saturation: 94 % ?? What to do next Future [...] the prescribing provider. What How Much When Instructions New Doxycycline (doxycycline hyclate 100 mg oral capsule) 1 capsule Oral Twice a day Duration: 7 Days may take with food to minimize abdominal discomfort ?? Pickup at [facility] Unchanged Acetaminophen (acetaminophen 325 mg oral tablet) [...] One tablet by mouth daily Sarah Connor [id number] ?? Unchanged Miscellaneous Rx (Thick It) See [...] DAY NEEDED FOR RASH ?? Pharmacy Information [facility]: [address] [phone] Medications and Immunizations Administered Medications Given During [...] are strongly encouraged to quit. Please call [facility] [employer] Link at [phone] or [phone] ([phone]) or log in to [email or web address] for referrals to smoking cessation programs. ?? The National Suicide Prevention Hotline is available 21/01 if you or someone you know needs to find a reason to keep living. By calling 6-623-115-[employer] (1723) you'll be connected to a skilled, trained counselor at a crisis center in your area. [facility] [employer] Portal You can view and manage your care through the patient portal or by using a health care michele of your choosing. [employer] is a website that allows you to securely view your medical information including your hospital discharge summary, office visit summaries, medications and follow-up visits. You can also request appointments, renew medications, and request access to your medical information using a health care michele of your choosing, or just ask a question. You can enroll at [email or web address] or register during your next office visit. [facility], in keeping with [facility] guidance, no longer requires face [...] primary care provider, you may find a [facility] provider by calling [facility] [employer] [facility] at [phone]. Patient Care team information Care Team Personnel Name: Darrick Vernon NP Position: [facility] PCO Associate Professional Member Role: PCP Address: [address] [place] [id number] Telecom: Name: Jason Boland RN Position: [facility] ED RN W/OE and Tasks Member Role: Primary Care Nurse Name: Krystle Nelson RN Position: [facility] RN Member Role: Primary Care Nurse Name: Marcy Mullen RN Position: [facility] HBO Wound Member Role: Primary Care Nurse Name: Lisa Montoya MD Position: [facility] Physician - Primary Care Member Role: Lifetime Consulting Physician Address: [address] [place] [address] Geriatric [facility] Palliative Care [place], [place] [address] Telecom: Name: Olive Reyna RN Position: [facility] RN Member Role: Primary Care Nurse Name: Kim Aviles RN Position: [facility] AMB Nurse Member Role: Primary Care Nurse Name: Maru Heart RN Position: [facility] RN Member Role: Primary Care Nurse Name: Amy Mark Position: [facility] AMB [place] Member Role: Primary Care Nurse Care Team Related Persons Name: EREN JERNIGAN Name: DI CARDOZA Name: CEASAR KENDRICK Name: RYLIE COLLADO Insurance Providers Guarantor name: [facility] Information #: 1 Payer: [facility] Member Number: [id number] Policy Number: NA Group Number: [id number] Health Plan Information #: 2 Payer: [facility] Member Number: [id number] Policy Number: CARLOZ Group Number: [id number]
--- OUTSIDE RECORDS SUMMARY | 2024-07-04 20:02 | XMS_ITS | Continuity of Care Document ---
Author Organization [facility] Address [address] [place] [address]- Care Team Providers Care Subgrade Roller Operator Name Role Phone Saulo SAMS, Darrick Primary Care Physician Encounter [facility] Date(s): 05/06/24 - 06/05/24 [facility] [address] [address]- Encounter Type: Triage Allergies, Adverse Reactions, Alerts Substance Criticality Severity Reaction Reaction Severity Status gentamicin Unable to assess criticality Unknown Active erythromycin Unable to assess criticality Unknown Active macrolide antibiotics Active ketolides Active Immunizations Given and Recorded Vaccine Date Status Refusal Reason SARS-CoV-2(COVID-19)mRNA-LNP vac([id number]) 07/30/23 Recorded influenza virus vaccine, inactivated 1 [...] 12/16/22 Recorded zoster vaccine, inactivated 09/30/22 Recorded [id number] 12y+ bivalent booster vax 04/26/22 Recorded tetanus/diphtheria/pertussis, [...] 05/22/98 Given 1Result Comment: done at the nursing home 2Result Comment: [facility] [id number] 3Result Comment: [id number] 4Result Comment: [id number] 5Result Comment: [07/09/2017] [facility]#[id number] 6Result Comment: [facility] [id number] 7Result Comment: [07/09/2017] [facility]#[id number] 8Result Comment: Lot #[id number] exp. 2007 [employer] 9Admin Note: [...] 5 Refills, Maintenance, 06/19/23 8:19:00 AM EST, [facility], Partial fill upon patient request if [...] 1 Refills, Maintenance, 03/09/24 4:08:00 PM EDT, [facility], 7, APPLY A THIN LAYER TOPICALLY [...] 5 Refills, Maintenance, 05/03/23 12:43:00 PM EDT, [facility], 180, cm, 04/16/23 11:13:00 EDT, Height [...] Refills, Soft Stop, 09/30/23 10:38:00 AM EDT, [facility], 180, cm, 06/18/23 11:14:00 EST, Height [...] 1 Refills, Maintenance, 05/15/23 4:06:00 PM EST, [facility], 4, USE ONE ENEMA RECTALLY NEEDED [...] 11 Refills, Maintenance, 02/20/24 9:13:00 AM EDT, [facility], 183, cm, 02/17/24 15:57:00 EDT, Height, 83, kg, 12/31/23 14:56:00 EDT, Dry Weight Start Date: 02/20/24 Stop Date: 02/04/27 Status: Ordered Quantity: 1080.0 Unit: capsule Repeat number: 12 docusate sodium 50 mg/5 mL oral solution 10 mL = 100 mg, By Mouth, Daily, 10ml daily by mouth at 8am for constipation, # 473 mL, 5 Refills, Maintenance, 06/19/23 8:21:00 AM EST, Solution, [facility], Partial fill upon patient request if the prescription is for a schedule II opioid drug., 180, cm, 06/18/23 11:14:00 EST, Height Start Date: 06/19/23 Status: Ordered Quantity: 473.0 Unit: mL Repeat number: 6 doxycycline hyclate 100 mg oral capsule 1 capsule = 100 mg, By Mouth, 2 times a day, for 7 days, may take with food to minimize abdominal discomfort, # 14 capsule, 0 Refills, Acute 06/10/24 1:46:00 PM EST, 06/03/24 1:46:00 PM EST, [facility], Partial fill upon patient request if the prescription is for a schedule II opioid drug., 183, cm, 06/03/24 13:37:00 EST, Height, 83, kg, 12/31/23 14:56:00 EDT, Dry Weight Start Date: 06/03/24 Stop Date: 06/10/24 Status: Ordered Quantity: 14.0 Unit: capsule Repeat number: 1 felbamate 400 mg oral tablet 2 tablet, By Mouth, 3 times a day, # 540 tablet, 11 Refills, Maintenance, 02/20/24 9:13:00 AM EDT, [facility], 183, cm, 02/17/24 15:57:00 EDT, Height, [...] Refills, Maintenance, 08/10/21 4:36:00 PM EST, Liquid, [facility], Partial fill upon patient request if [...] 9:13:00 AM EDT, Route to Pharmacy Electronically, [facility], Partial fill upon patient request if [...] 11 Refills, Maintenance, 02/20/24 9:14:00 AM EDT, [facility], 183, cm, 02/17/24 15:57:00 EDT, Height, [...] 5 Refills, Maintenance, 07/07/23 6:54:00 AM EST, [facility], 180, cm, 06/18/23 11:14:00 EST, Height Start Date: 07/07/23 Status: Ordered Quantity: 30.0 Unit: tablet Repeat number: 1 midazolam 5 mg/inh nasal spray See Instructions, 5 mg in one nostril for seizure lasting longer than 5 minutes, or 4 seizures in a30 minute period. Can repeat once in 10 minutes if needed., # 3 each, 1 Refills, Maintenance, 10/07/23 10:57:00 AM EDT, [facility], need one for home, one for [...] Refills, Soft Stop, 08/31/20 11:39:00 AM EST, [facility], 180, cm, 05/10/20 15:56:00 EST, Height, [...] needed in 24hr period use other nostril, program is used, # 6 each, 4 Refills, Maintenance, 01/06/24 1:10:00 PMEDT, [facility], 183, cm, 01/03/24 9:43:00 EDT, Height, [...] One tablet by mouth daily Sarah Connor [id number], 08/27/17 3:32:32 PM EST, Compound Start Date: [...] 5 Refills, Maintenance, 07/19/23 6:45:00 PM EST, [facility], 30, MIX 17 GRAMS (ONE CAP [...] tablet, 3 Refills, Maintenance, 02/28/2412:09:00 PM EDT, [facility], 183, cm, 02/17/24 15:57:00 EDT, Height, 83, kg, 12/31/23 14:56:00 EDT, Dry Weight Start Date: 02/28/24 Status: Ordered Quantity: 90.0 Unit: tablet Repeat number: 4 simvastatin 40 mg oral tablet See Instructions, TAKE 1 TABLET BY MOUTH AT BEDTIME FOR HYPERLIPIDEMIA, # 90 tablet, Refills 3, Tot. Refills 3, Maintenance, 03/23/24 1:10:00 PM EDT, Instructions Replace Required Details, Route to Pharmacy Electronically, [facility], 183, cm, 02/17/24 15:57:00 EDT, Height, [...] 5 Refills, Maintenance, 03/13/23 6:56:00 PM EDT, [facility], 30, TAKE 1 TABLET BY MOUTH [...] mobility Confirmed Active Intellectual disability Confirmed Active Manjinder-Gastaut syndrome Confirmed Active Mental retardation Confirmed Active Mixed hyperlipidemia Confirmed Active Mood disorder Confirmed Active Osteopenia Confirmed Active Seizure disorder Confirmed Active Social History Social History Type Response Smoking Status Never smoker; Tobacc o user in household: No entered on: 05/30/17 Sex Sex Representation Male (finding) Patient Care team information Care Team Personnel Name: Darrick Vernon NP Position: [facility] PCO Associate Professional Member Role: PCP Address: [address] [place] [address]- Telecom: Name: Jason Boland RN Position: [facility] ED RN W/OE and Tasks Member Role: Primary Care Nurse Name: Krystle Nelson RN Position: [facility] RN Member Role: Primary Care Nurse Name: Marcy Mullen RN Position: [facility] HBO Wound Member Role: Primary Care Nurse Name: Lisa Montoya MD Position: [facility] Physician - Primary Care Member Role: Lifetime Consulting Physician Address: [address] [place] [address] Geriatric & [place] [address]- Telecom: Name: Olive Reyna RN Position: [facility] RN Member Role: Primary Care Nurse Name: Kim Aviles RN Position: [facility] AMB Nurse Member Role: Primary Care Nurse Name: Maru Heart RN Position: [facility] SN RN Member Role: Primary Care Nurse Name: Amy Mark Position: [facility] [place] Member Role: Primary Care Nurse Care Team Related Persons Name: EREN JERNIGAN Name: DI CARDOZA Name: CEASAR KEDNRICK Name: RYLIE COLLADO Insurance Providers Guarantor name: [facility] Plan Information #: 1 Payer: [facility] Member Number: NA Policy Number: NA Group Number: NA
[2024-07-04 20:11] LABS: MANUAL DIFF FLAG NO
--- NOTE | 2024-07-04 20:11 | PC.NURSE ---
group account director reporting seizure activity upon assessment no active seizure, provider notified.
[2024-07-04 20:13] LABS: Basophils Percent Auto 0.3 % (0-2); Eosinophils Absolute Auto 0.1 X10*3/uL (0.0-0.4); Eosinophils Percent Auto 2.6 % (0-4); Hematocrit 36.5 % (42.0-52.0); Hemoglobin 12.7 g/dl (14.0-18.0); Imm Gran Abs Auto 0.01 X10*3/uL (0.00-0.03); Imm Gran Pct Auto 0.3 % (0.0-0.4); Lymphocytes Absolute Auto 1.6 X10*3/uL (1.2-4.9); Lymphocytes Percent Auto 50.8 % (20-40); Mean Corpuscular HGB Conc 34.8 g/dl (31.0-36.0); Mean Corpuscular Hemoglobin 29.5 pg (27.0-33.0); Mean Corpuscular Volume 84.9 fL (80.0-98.0); Mean Platelet Volume 9.3 fL (9.4-12.4); Monocytes Absolute Auto 0.4 X10*3/uL (0.1-1.2); Monocytes Percent Auto 13.4 % (2-11); Neutrophils Percent Auto 32.6 % (45-73); Platelet Count 230 X10*3/uL (160-400); Red Cell Distribution Width 13.2 % (11.0-16.0); White Blood Count 3.1 X10*3/uL (4.8-10.8)
[2024-07-04 20:14] VITALS: BP 121/66; PULSE 65; RESP 14; O2SAT 100
--- NOTE | 2024-07-04 20:14 | MHC.EDTECH ---
anna catheter applied to pt, tolerates well
[2024-07-04 20:34] LABS: Alanine Aminotransferase 16 U/L (0-40); Albumin Level 3.9 g/dL (3.5-5.0); Alkaline Phosphatase 48 U/L (39-117); Anion Gap 10 (12-20); Aspartate Amino Transferase 20 U/L (5-37); Bilirubin Total 0.2 mg/dL (0.0-1.0); Blood Urea Nitrogen 8 mg/dL (9-16); Calcium 8.9 mg/dL (8.4-10.2); Carbon Dioxide 30 mmol/L (22-29); Chloride 98 mmol/L (96-108); Creatinine Clr Calc Pharmacy 152.3; Estimated Glomerular Filt Rate > 60; Glucose Random 93 mg/dL (60-115); Potassium 4.4 mmol/L (3.3-5.1); Sodium 134 mmol/L (135-145); Total Protein 6.8 g/dL (6.5-8.0)
--- NOTE | 2024-07-04 21:12 | ED_ITS ---
HPI - Seizure General Chief Complaint: Seizure Stated Complaint: Multiple seizures Time Seen by Provider: 07/04/24 20:03 History of Present Illness HPI Narrative: Patient is a 58-year-old male with a history of Michelle-Gastaut syndrome with history of hypothyroid history of seizures history of proptosis. Patient's get seizure on an [id number] basis. These will be jerking like movements they lasts for few seconds. He is on multiple medication. Seems like the dose of medication has not changed recently. Patient is already on Keppra 1000 mg 3 times a day. On felbamate 800 mg 3 times a day. Also on Depakote 500 mg 3 times a day. Additionally patient is on Lamictal 25 mg twice a day. For breakthrough seizures patient gets midazolam 5 mg nasally. Patient had multiple seizures today requiring administration of 2 doses of midazolam today. [facility] having 2-3 episodes of seizure today. This is a higher frequency than normal. Patient baseline is awake oriented times 0. Seizure History: Yes Place: Home Related Data Home Medications ?Medication ?Instructions ?Recorded ?Confirmed acetaminophen 325 mg tablet 650 mg PO Q6H PRN Fever Or Pain 04/01/23 12/17/23 bacitracin 500 unit/gram eye 0.25 inch ophthalmic (eye) BID 04/01/23 12/17/23 ointment wounds cholecalciferol (vitamin D3) 1,250 1,250 mcg PO WE@0900 04/01/23 12/17/23 mcg (50,000 unit) capsule clonazepam 0.5 mg tablet 0.25 mg PO BID@0800,1200 04/01/23 12/17/23 clonazepam 0.5 mg tablet 0.5 mg PO BEDTIME 04/01/23 12/17/23 divalproex 125 mg capsule,delayed 500 mg PO TID 04/01/23 12/17/23 release sprinkle (Depakote Sprinkles) felbamate 400 mg tablet 800 mg PO TID 04/01/23 12/17/23 levetiracetam 500 mg tablet 1,000 mg PO TID 04/01/23 12/17/23 levothyroxine 88 mcg tablet 88 mcg PO DAILY@0600 04/01/23 12/17/23 multivitamin with folic acid 400 1 tab PO DAILY 04/01/23 12/17/23 mcg tablet (Thera) sertraline 50 mg tablet 50 mg PO BEDTIME 04/01/23 12/17/23 simvastatin 40 mg tablet 40 mg PO BEDTIME 04/01/23 12/17/23 zinc oxide 13 % topical cream 1 appl topical TID PRN Rash 04/01/23 12/17/23 (Desitin Daily Defense) bisacodyl 10 mg rectal suppository 10 mg [place] DAILY PRN Constipation 06/08/23 12/17/23 (OneLAX Bisacodyl) guaifenesin 100 mg/5 mL oral liquid 200 mg PO Q6H PRN Cough 06/08/23 12/17/23 magnesium hydroxide 400 mg/5 mL 30 ml PO Q OTHER DAY Constipation 06/08/23 12/17/23 oral suspension (Milk of Magnesia) polyethylene glycol 3350 17 17 g PO DAILY 06/08/23 12/17/23 gram/dose oral powder sodium phosphates 19 gram-7 118 ml WI DAILY PRN Constipation 06/08/23 12/17/23 gram/118 mL enema (Enema Disposable) white petrolatum-mineral oil 57.3 0.25 inch ophthalmic (eye) BEDTIME 06/08/23 12/17/23 %-42.5 % eye ointment (Refresh P.M.) aspirin 81 mg chewable tablet 81 mg PO DAILY 12/17/23 12/17/23 bacitracin 500 unit/gram topical 1 appl topical BID PRN wounds 12/17/23 12/17/23 ointment docusate sodium 50 mg/5 mL oral 100 mg PO DAILY 12/17/23 12/17/23 liquid magnesium hydroxide 400 mg/5 mL 30 ml PO DAILY PRN Constipation 12/17/23 12/17/23 oral suspension (Milk of Magnesia) midazolam 5 mg/spray (0.1 mL) 5 mg intranasal Q10M PRN Seizures 12/17/23 12/17/23 nasal spray (Nayzilam) Previous Rx's ?Medication ?Instructions ?Recorded cefuroxime axetil 500 mg tablet 500 mg PO BID #10 tabs 12/23/23 lamotrigine 25 mg tablet 50 mg (2 x 25 mg) PO BID #270 tabs 12/23/23 Allergies Allergy/AdvReac Type Severity Reaction Status Date / Time erythromycin base Allergy Unknown HIVES Verified 07/04/24 19:30 [ERYTHROMYCIN BASE] gentamicin [GENTAMICIN] Allergy Unknown UNKNOWN Verified 07/04/24 19:30 Macrolide Antibiotics Allergy Unknown UNKNOWN Verified 07/04/24 19:30 [MACROLIDE ANTIBIOTICS] KETOLIDES Allergy Unknown UNKNOWN Uncoded 12/17/23 00:01 Review of Systems 2 Review of Systems: Unable to obtain review of systems [facility] Past Medical History Source: unable to obtain Medical History Fever Epileptic seizure Depression Generalized anxiety disorder Ganglion cyst Aspiration pneumonia Parkinson disease Dysphagia Anxiety Constipation TIA (transient ischemic attack) Hyperlipidemia Glaucoma Hyperopia of left eye Proptosis Aphakia, both eyes Osteopenia Hypothyroidism Manjinder-Gastaut syndrome, intractable, with status epilepticus Social History Social History Household Members: Other Household Members Other:: other residents Housing: Other Housing Other:: [facility] Do you presently have visiting nurse or other home services: No Unable to assess alcohol history related to: Unknown Comment: 1:1 sitter Patient Tobacco Use Status: Never used Tobacco Smoked in Last 30 Days: No e-Cigarette/Vaping Use: Never Used Second Hand Smoke Exposure: No Use of substances other than those prescribed or required for medical reasons: No Advance Directives: No Advance Directives Information Provided: No Do you have a plan to hurt others: No Plan service: No Physical Exam 2 Vital Signs: Vital Signs: Last Vital Signs Temp 99.4 F 07/04/24 21:48 Pulse 70 07/04/24 21:48 Resp 12 07/04/24 21:48 BP 113/62 07/04/24 21:48 Pulse Ox 97 07/04/24 21:48 O2 Del Method Room Air 07/04/24 21:48 BMI result Body Mass Index 25.1 Appearance: Alert. Oriented X0 No acute distress. Eyes: Pupils equal, round and reactive to light. ENT: Pharynx normal. Neck: Normal inspection. Neck supple. No lymph nodes noted. No crepitus CVS: Normal heart rate and rhythm. Pulses normal. Normal S1 and S2 Respiratory: No respiratory distress. Breath sounds normal. No Wheezing. No rales Abdomen: Soft and nontender. No rigidity. No distention. good BS x4 Skin: Skin warm and dry. Normal skin color. Normal skin turgor. Extremities: No lower extremity edema. Neurovascular intact to all extremities. No Lacerations. No Rash Neuro: Oriented X 0. No motor deficit. No sensory deficit. Moving all extermities. No slurred speech Medical Decision Making Medical Decision Making [facility] Narrative: Patient is 58 years old with a complicated seizure history on multitude of medication including Keppra, felbamate, Depakote, midazolam, clonazepam, Lamictal. Most of these medication has been maximized already. Patient had increased frequency of seizure today. Was given 2 doses of midazolam. The seizure has resolved. These episodes seems to last longer than usual it involves head bobbing. Patient's case discussed with neurology at [facility]. Patient normally gets followed by Dr. Shafer. On-call neurologist , recommended that we increase the Lamictal to 50 mg twice a day. Aware patient's electrolytes appear normal. No acute distress. Mental status back to baseline. [facility]. Additional dose of Lamictal was given. Currently in stable condition. Differential Diagnosis Differential Diagnoses: The differential diagnosis associated with the presentation includes Seizure Admission/Observation Consideration of admission/observation: Escalation of care including admission/observation considered Consult Healthcare Provider Management of the patient was discussed with: Weekend Receptionist (Neurology) Lab Data [facility] Lab Attestation statement: I reviewed the patient's lab results. 07/04/24 20:07 07/04/24 20:07 Labs: Lab Results 07/04/24 07/04/24 07/04/24 Range/Units 20:07 21:39 21:47 WBC 3.1 L (4.8-10.8) X10*3/uL RBC 4.30 L (4.60-5.80) X10*6/uL Hgb 12.7 L (14.0-18.0) g/dl Hct 36.5 L (42.0-52.0) % MCV 84.9 (80.0-98.0) fL MCH 29.5 (27.0-33.0) pg MCHC 34.8 (31.0-36.0) g/dl RDW 13.2 (11.0-16.0) % Plt Count 230 (160-400) X10*3/uL MPV 9.3 L (9.4-12.4) fL Immature Gran % (Auto) 0.3 (0.0-0.4) % Neut % (Auto) 32.6 L (45-73) % Lymph % (Auto) 50.8 H (20-40) % [place] % (Auto) 13.4 H (2-11) % Eos % (Auto) 2.6 (0-4) % Baso % (Auto) 0.3 (0-2) % Lymph # (Auto) 1.6 (1.2-4.9) X10*3/uL [place] # (Auto) 0.4 (0.1-1.2) X10*3/uL Eos # (Auto) 0.1 (0.0-0.4) X10*3/uL Baso # (Auto) 0.0 (0.0-0.2) X10*3/uL Abs Immat Gran (auto) 0.01 (0.00-0.03) X10*3/uL Absolute Neuts (auto) 1.0 L (2.0-8.3) x10*3/uL Absolute Nucleated RBC 0.000 (0.0-0.012) X10*3/uL Nucleated RBC % (auto) 0.0 (0.0-0.2) /100WBC Sodium 134 L (135-145) mmol/L Potassium 4.4 D (3.3-5.1) mmol/L Chloride 98 (96-108) mmol/L Carbon Dioxide 30 H (22-29) mmol/L Anion Gap 10 L (12-20) BUN 8 L (9-16) mg/dL Creatinine 0.58 (0.5-1.4) mg/dL Estim Creat Clear Calc 152.3 Estimated GFR > 60 Random Glucose 93 (60-115) mg/dL Calcium 8.9 (8.4-10.2) mg/dL Total Bilirubin 0.2 (0.0-1.0) mg/dL AST 20 (5-37) U/L ALT 16 (0-40) U/L Alkaline Phosphatase 48 (39-117) U/L Total Protein 6.8 (6.5-8.0) g/dL Albumin 3.9 (3.5-5.0) g/dL Urine Color Yellow Urine Appearance Clear Urine pH 7.0 (5.0-9.0) Ur Specific [place] 1.015 (1.005-1.025) Urine Protein Negative (Neg-Trace) mg/dL Urine Glucose (UA) Negative (Negative) mg/dL Urine Ketones Negative (Negative) mg/dL Urine Blood Negative (Negative) Urine Nitrite Negative (Negative) Ur Leukocyte Esterase Negative (Negative) Valproic Acid 87.3 (50.0-100.0) mcg/mL Independent Historian Clinical information obtained from an independent historian. History obtained from or confirmed by: Other (skilled nursing staff) External Record Review External record reviewed: Office record and Outpatient record Chronic Conditions Patient?s care impacted by: Other (Genetic disorder history of seizure) Social Determinants Patient?s care significantly limited by Social Determinants of Health including: Other Social Determinant of Health Discharge Plan Discharge Clinical Impression: Seizure Patient Disposition: Home, Self-Care Instructions: Recurrent Seizures in Adults (ED) Additional Instructions: Please increase dose of Lamictal from 25 mg twice a day to 50 mg twice a day. Prescriptions: No Action levetiracetam 500 mg tablet 1,000 mg PO TID bacitracin 500 unit/gram ointment 0.25 inch ophthalmic (eye) BID clonazepam 0.5 mg Tablet 0.5 mg PO BEDTIME Rx Instructions: administer 30 minutes before bedtime clonazepam 0.5 mg Tablet 0.25 mg PO BID@0800,1200 felbamate 400 mg tablet 800 mg PO TID simvastatin 40 mg tablet 40 mg PO BEDTIME levothyroxine 88 mcg tablet 88 mcg PO DAILY@0600 sertraline 50 mg tablet 50 mg PO BEDTIME divalproex [Depakote Sprinkles] 125 mg capsule, delayed rel sprinkle 500 mg PO TID cholecalciferol (vitamin D3) 1,250 mcg (50,000 unit) capsule 1,250 mcg PO WE@0900 Desitin Daily Defense 13 % cream 1 appl topical TID PRN (Reason: Rash) multivitamin with folic acid [Thera] 400 mcg tablet 1 tab PO DAILY acetaminophen 325 mg Tablet 650 mg PO Q6H PRN (Reason: Fever Or Pain) Rx Instructions: not to exceed 3000mg in 24 hours guaifenesin 100 mg/5 mL Liquid 200 mg PO Q6H PRN (Reason: Cough) magnesium hydroxide [Milk of Magnesia] 400 mg/5 mL suspension 30 ml PO Q OTHER DAY bisacodyl [OneLAX Bisacodyl] 10 mg suppository 10 mg WI DAILY PRN (Reason: Constipation) Enema Disposable 19-7 gram/118 mL enema 118 ml WI DAILY PRN (Reason: Constipation) Rx Instructions: on day 4 of no BM polyethylene glycol 3350 17 gram/dose powder 17 g PO DAILY Rx Instructions: hold for loose stools Refresh P.M. 57.3-42.5 % ointment 0.25 inch ophthalmic (eye) BEDTIME docusate sodium 50 mg/5 mL Liquid 100 mg PO DAILY aspirin 81 mg Tablet,Chewable 81 mg PO DAILY Nayzilam 5 mg/spray (0.1 mL) [place],Non-Aerosol 5 mg INTRANASAL Q10M PRN (Reason: Seizures) bacitracin 500 unit/gram Ointment 1 appl TOPICAL BID PRN (Reason: wounds) magnesium hydroxide [Milk of Magnesia] 400 mg/5 mL Suspension 30 ml PO DAILY PRN (Reason: Constipation) lamotrigine 25 mg Tablet 50 mg PO BID Qty: 270 0RF cefuroxime axetil 500 mg tablet 500 mg PO BID Qty: 10 0RF Referrals: Tito Shafer MD [Physician] - 07/06/24 Print Language: Tamazight
--- NOTE | 2024-07-04 21:38 | PC.NURSE ---
jail human services assistant, requesting pt to be given his night meds, profile stitching machine operator aware and waiting for neurology recommendation, human services assistant updated.
[2024-07-04 21:48] VITALS: BP 113/62; PULSE 70; RESP 12; TEMP 37.4; O2SAT 97
[2024-07-04 21:55] LABS: Valproate 87.3 mcg/mL (50.0-100.0)
[2024-07-04 21:59] LABS: Appearance Urine Clear; Color Urine Yellow; Glucose Urine UA Negative (Negative); Leukocyte Esterase Urine Negative (Negative); Nitrite Urine Negative (Negative); Specific Gravity - Urine 1.015 (1.005-1.025); Urine Blood Negative (Negative); Urine Ketones Negative (Negative); Urine Protein Negative (Neg-Trace)
[2024-07-04 22:04] LABS: Bacteria Urine None Seen (None Seen); Hyaline Casts Urine 0-2 /LPF (0-2); Squamous Epithelial Cell Urine 0-2 /HPF (0-2); WBC Urine 0-5 /HPF (0-5)
[2024-07-04 22:15] LABS: RBC Urine 0-2 /HPF (0-2)
[2024-07-04] MEDS: lamoTRIgine 25 MG TABLET PO ×2 (22:41)
[2024-07-04 22:46] VITALS: BP 127/64; PULSE 64; RESP 16; TEMP 37.1; O2SAT 99
--- NOTE | 2024-07-04 22:47 | PC.NURSE ---
Pt medicated per mar, pt awaiting EMS to returning back to facility.
--- NOTE | 2024-07-04 22:56 | PC.NURSE ---
Report given to facility and EMS, Reviewed discharge instructions with nursing home. No sign of distress.
[2024-07-04 22:57] VITALS: BP 127/64; PULSE 64; RESP 16; TEMP 37.1; O2SAT 99
== END 2024-07-04 22:58 | disposition home or self-care (01) ==
PROVIDERS: Emergency Provider Emergency Medicine Emergency Medical Services; PCP Internal Medicine
DX: G40.909 Epilepsy, unspecified, not intractable, without status epilepticus (principal); G20.A1 Parkinson's disease without dyskinesia, without mention of fluctuations; E78.5 Hyperlipidemia, unspecified; E05.00 Thyrotoxicosis with diffuse goiter without thyrotoxic crisis or storm; Z86.73 Personal history of transient ischemic attack (TIA), and cerebral infarction without residual deficits; Z79.899 Other long term (current) drug therapy
CPT/HCPCS: 36415; 80053; 80164; 81001; 85025; 93005; 99284

== ENCOUNTER → 2024-07-04 19:48 | Outpatient (BNV) | payer OTHER, SELFPAY | PROVIDERS: Emergency Provider Emergency Medicine Emergency Medical Services; PCP Internal Medicine; Visit Provider Internal Medicine Cardiovascular Disease | DX: R56.9 Unspecified convulsions (principal) | CPT/HCPCS: 93010 ==

== ENCOUNTER 2024-07-25 11:42 | Emergency (ER) | payer OTHER, SELFPAY ==
--- NOTE | ~2024-07-25 | XR_ITS ---
CLINICAL HISTORY: brusing 4 view left hand Comparison: None Findings: Limited study based on contractures. No definite fracture or acute malalignment. Impression: Limited study. No definite fracture. This document has been electronically signed by: Chance Knott MD on 07/25/2024 13:08:10
[2024-07-25 12:27] VITALS: BP 108/63; PULSE 86; RESP 20; TEMP 36.5; O2SAT 100; BMI 22.4
--- NOTE | 2024-07-25 15:51 | ED_ITS ---
HPI - Extremity Problem General Chief complaint: Extremity Injury, Upper Stated complaint: possible L hand fracture Time Seen by Provider: 07/25/24 15:29 Source: patient and other (caregiver) Mode of arrival: wheelchair Limitations: altered mental status History of Present Illness ED Provider: MARILYN BAEZA Narrative: 58 yo male with PMH of seizures, pneumonia, cognitive impairment, hand cont ractures, staff noted bruise on hand and fingers including 3rd/4th no trauma noted. The bruise is yellow and old but they state they just noted it today. They have tylenol for pain if needed. MD Complaint: other (bruise on hand) Onset (ago): unknown Location: left and upper extremity Quality: aching Radiation: none Relieving factors: immobilization Exacerbating factors: range of motion Associated symptoms: denies other symptoms Related Data Home Medications ?Medication ?Instructions ?Recorded ?Confirmed acetaminophen 325 mg tablet 650 mg PO Q6H PRN Fever Or Pain 04/01/23 12/17/23 bacitracin 500 unit/gram eye 0.25 inch ophthalmic (eye) BID 04/01/23 12/17/23 ointment wounds cholecalciferol (vitamin D3) 1,250 1,250 mcg PO WE@0900 04/01/23 12/17/23 mcg (50,000 unit) capsule clonazepam 0.5 mg tablet 0.25 mg PO BID@0800,1200 04/01/23 12/17/23 clonazepam 0.5 mg tablet 0.5 mg PO BEDTIME 04/01/23 12/17/23 divalproex 125 mg capsule,delayed 500 mg PO TID 04/01/23 12/17/23 release sprinkle (Depakote Sprinkles) felbamate 400 mg tablet 800 mg PO TID 04/01/23 12/17/23 levetiracetam 500 mg tablet 1,000 mg PO TID 04/01/23 12/17/23 levothyroxine 88 mcg tablet 88 mcg PO DAILY@0600 04/01/23 12/17/23 multivitamin with folic acid 400 1 tab PO DAILY 04/01/23 12/17/23 mcg tablet (Thera) sertraline 50 mg tablet 50 mg PO BEDTIME 04/01/23 12/17/23 simvastatin 40 mg tablet 40 mg PO BEDTIME 04/01/23 12/17/23 zinc oxide 13 % topical cream 1 appl topical TID PRN Rash 04/01/23 12/17/23 (Desitin Daily Defense) bisacodyl 10 mg rectal suppository 10 mg [place] DAILY PRN Constipation 06/08/23 12/17/23 (OneLAX Bisacodyl) guaifenesin 100 mg/5 mL oral liquid 200 mg PO Q6H PRN Cough 06/08/23 12/17/23 magnesium hydroxide 400 mg/5 mL 30 ml PO Q OTHER DAY Constipation 06/08/23 12/17/23 oral suspension (Milk of Magnesia) polyethylene glycol 3350 17 17 g PO DAILY 06/08/23 12/17/23 gram/dose oral powder sodium phosphates 19 gram-7 118 ml OH DAILY PRN Constipation 06/08/23 12/17/23 gram/118 mL enema (Enema Disposable) white petrolatum-mineral oil 57.3 0.25 inch ophthalmic (eye) BEDTIME 06/08/23 12/17/23 %-42.5 % eye ointment (Refresh P.M.) aspirin 81 mg chewable tablet 81 mg PO DAILY 12/17/23 12/17/23 bacitracin 500 unit/gram topical 1 appl topical BID PRN wounds 12/17/23 12/17/23 ointment docusate sodium 50 mg/5 mL oral 100 mg PO DAILY 12/17/23 12/17/23 liquid magnesium hydroxide 400 mg/5 mL 30 ml PO DAILY PRN Constipation 12/17/23 12/17/23 oral suspension (Milk of Magnesia) midazolam 5 mg/spray (0.1 mL) 5 mg intranasal Q10M PRN Seizures 12/17/23 12/17/23 nasal spray (Nayzilam) Previous Rx's ?Medication ?Instructions ?Recorded cefuroxime axetil 500 mg tablet 500 mg PO BID #10 tabs 12/23/23 lamotrigine 25 mg tablet 50 mg (2 x 25 mg) PO BID #270 tabs 12/23/23 Allergies Allergy/AdvReac Type Severity Reaction Status Date / Time erythromycin base Allergy Unknown HIVES Verified 07/25/24 12:29 [ERYTHROMYCIN BASE] gentamicin [GENTAMICIN] Allergy Unknown UNKNOWN Verified 07/25/24 12:29 Macrolide Antibiotics Allergy Unknown UNKNOWN Verified 07/25/24 12:29 [MACROLIDE ANTIBIOTICS] KETOLIDES Allergy Unknown UNKNOWN Uncoded 12/17/23 00:01 Review of Systems Review of Systems: ROS unable to be obtained due to cognitive delay [facility] Past Medical History Attestation statement: The following information was validated with the patient. Source: old records reviewed Medical History Fever Epileptic seizure Depression Generalized anxiety disorder Ganglion cyst Aspiration pneumonia Parkinson disease Dysphagia Anxiety Constipation TIA (transient ischemic attack) Hyperlipidemia Glaucoma Hyperopia of left eye Proptosis Aphakia, both eyes Osteopenia Hypothyroidism [place]-Gastaut syndrome, intractable, with status epilepticus Social History Social History Household Members: Other Household Members Other:: other residents Housing: Other Housing Other:: [facility] Do you presently have visiting nurse or other home services: No Unable to assess alcohol history related to: Unknown Comment: 1:1 sitter Patient Tobacco Use Status: Never used Tobacco e-Cigarette/Vaping Use: Never Used Second Hand Smoke Exposure: No service: No Physical Exam Vital Signs: Vital Signs: Last Vital Signs Temp 97.7 F 07/25/24 12:27 Pulse 86 07/25/24 12:27 Resp 20 07/25/24 12:27 BP 108/63 07/25/24 12:27 Pulse Ox 100 07/25/24 12:27 O2 Del Method Room Air 07/25/24 12:27 BMI result Body Mass Index 22.4 Appearance: Alert. at baseline, in a wheelchair No acute distress. Eyes: Pupils equal, round and reactive to light. ENT: Pharynx normal. atraumatic Neck: Normal inspection. Neck supple. CVS: Pulses normal. Respiratory: No respiratory distress. Abdomen: Soft and non-tender. Skin: Skin warm and dry. Normal skin color. Normal skin turgor. Extremities: L hand yellow bruising on dorsm particularly near 2/3/4 metacarpals there is some purple bruise, both hands are contracted and inward he does not stretch them out. warm to touch, BCR Neuro: cannot fully participate but at baseline Medical Decision Making Medical Decision Making MDM Narrative: 58 yo male with PMH of seizures, pneumonia, cognitive impairment, hand contractures, here found to have L hand bruising and pain with attempting to move it. No known trauma. He is not amenable to splint given he cannot straighten his finger. I did obtain xray possible 3rd MCP injury as I see irregularity on AP film. Will tuyet wrap and refer to PCP for repeat xrays Differential Diagnosis Differential Diagnoses: The differential diagnosis associated with the presentation includes contusion, fracture, sprain Independent Interpretation I performed an independent interpretation of an: Plain X-Ray (3rd MCP ?cortical irregularity) Radiology Impression Discussion of test interpretation with radiology: I have reviewed the radiologist's reading. Independent Historian Clinical information obtained from an independent historian. History obtained from or confirmed by: Other External Record Review External record reviewed: Outpatient record Prescription Management I considered prescription management with: Other Discharge Plan Discharge Clinical Impression: Contusion of finger Patient Disposition: Home, Self-Care Instructions: Contusion in Adults (ED) Additional Instructions: The xrays of your left hand do not demonstrate acute fracture. There is a slight irregularity over your left middle knuckle. Please follow up with PCP in 5 days for repeat xrays. Your hand was tuyet wrapped today for comfort. You may take tylenol/ motrin at home for pain/ discomfort. Return with thew or worsening symptoms. In the case of an emergency call 911. Prescriptions: No Action levetiracetam 500 mg tablet 1,000 mg PO TID bacitracin 500 unit/gram ointment 0.25 inch ophthalmic (eye) BID clonazepam 0.5 mg Tablet 0.5 mg PO BEDTIME Rx Instructions: administer 30 minutes before bedtime clonazepam 0.5 mg Tablet 0.25 mg PO BID@0800,1200 felbamate 400 mg tablet 800 mg PO TID simvastatin 40 mg tablet 40 mg PO BEDTIME levothyroxine 88 mcg tablet 88 mcg PO DAILY@0600 sertraline 50 mg tablet 50 mg PO BEDTIME divalproex [Depakote Sprinkles] 125 mg capsule, delayed rel sprinkle 500 mg PO TID cholecalciferol (vitamin D3) 1,250 mcg (50,000 unit) capsule 1,250 mcg PO WE@0900 Desitin Daily Defense 13 % cream 1 appl topical TID PRN (Reason: Rash) multivitamin with folic acid [Thera] 400 mcg tablet 1 tab PO DAILY acetaminophen 325 mg Tablet 650 mg PO Q6H PRN (Reason: Fever Or Pain) Rx Instructions: not to exceed 3000mg in 24 hours guaifenesin 100 mg/5 mL Liquid 200 mg PO Q6H PRN (Reason: Cough) magnesium hydroxide [Milk of Magnesia] 400 mg/5 mL suspension 30 ml PO Q OTHER DAY bisacodyl [OneLAX Bisacodyl] 10 mg suppository 10 mg [place] DAILY PRN (Reason: Constipation) Enema Disposable 19-7 gram/118 mL enema 118 ml [place] DAILY PRN (Reason: Constipation) Rx Instructions: on day 4 of no BM polyethylene glycol 3350 17 gram/dose powder 17 g PO DAILY Rx Instructions: hold for loose stools Refresh P.M. 57.3-42.5 % ointment 0.25 inch ophthalmic (eye) BEDTIME docusate sodium 50 mg/5 mL Liquid 100 mg PO DAILY aspirin 81 mg Tablet,Chewable 81 mg PO DAILY Nayzilam 5 mg/spray (0.1 mL) [place],Non-Aerosol 5 mg INTRANASAL Q10M PRN (Reason: Seizures) bacitracin 500 unit/gram Ointment 1 appl TOPICAL BID PRN (Reason: wounds) magnesium hydroxide [Milk of Magnesia] 400 mg/5 mL Suspension 30 ml PO DAILY PRN (Reason: Constipation) lamotrigine 25 mg Tablet 50 mg PO BID Qty: 270 0RF cefuroxime axetil 500 mg tablet 500 mg PO BID Qty: 10 0RF Print Language: Niuean
[2024-07-25 15:57] VITALS: BP 108/63; PULSE 86; RESP 20; TEMP 36.5; O2SAT 100
--- OUTSIDE RECORDS SUMMARY | 2024-07-25 16:11 | XMS_ITS | Continuity of Care Document ---
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 Name Role Phone Aldair Ladd MD Primary [id number] Date(s): 07/13/24 - 07/20/[address] [address]- Encounter Diagnosis Duncan-Gastaut syndrome(Discharge Diagnosis) - 07/13/24 Intellectual disability(Discharge Diagnosis) - 07/13/24 Attending Physician: Aldair Ladd MD Encounter Type: Office Visit Allergies, Adverse Reactions, Alerts Substance Criticality Severity Reaction Reaction Severity Status gentamicin Unable to assess criticality Unknown Active erythromycin Unable to assess criticality Unknown Active macrolide antibiotics Active ketolides Active Immunizations Given and Recorded Vaccine Date Status Refusal Reason SARS-CoV-2(COVID-19)mRNA-LNP vac([id number]) 07/30/23 Recorded influenza virus vaccine, inactivated 1 03/20/23 Re corded influenza virus vaccine, inactivated 03/16/22 Jose Alejandro rded influenza virus vaccine, inactivated 2 10/26/21 Gi benita influenza virus vaccine, inactivated 3 04/16/20 Gi benita influenza virus vaccine, inactivated 4 03/20/19 Gi benita influenza virus vaccine, inactivated 5 07/09/17 Gi benita influenza virus vaccine, inactivated 05/09/16 Give n influenza virus vaccine, inactivated 04/29/15 Give n influenza virus vaccine, inactivated 03/12/13 Give n zoster vaccine, inactivated 12/16/22 Recorded zoster vaccine, inactivated 09/30/22 Recorded [id number] 12y+ bivalent booster vax 04/26/22 Recorded tetanus/diphtheria/pertussis, [...] 05/22/98 Given 1Result Comment[facility] 2Result Comment: [facility] [id number] 3Result Comment: [id number] 4Result Comment: [id number] 5Result Comment: [07/09/2017] [facility]#[id number] 6Result Comment: [facility] [id number] 7Result Comment: [07/09/2017] [facility]#[id number] 8Result Comment: Lot #[id number] exp. 2007 [employer] 9Admin Note: 3rd dose Medications acetaminophen 325 mg oral tablet See Instructions, TAKE 2 TABLETS (650 MG) BY MOUTH EVERY 6 HOURS NEEDED FOR TEMP>100 OR PAIN EVIDENCED BY FACIAL GRIMACE / NTE 3,000 MG IN 24 HOURS, # 100 tablet, Refills 5, Maintenance, 05/23/22 2:03:00 PM EST, Instructions Replace Required Details, Route to Pharmacy Electronically, [facility], 180, cm, 05/21/22 10:27:00 EST, Height Start Date: 05/23/22 Status: Ordered Quantity: 100.0 Unit: tablet Repeat number: 1 Aspirin Low Dose 81 mg oral tablet, chewable 1 tablet = 81 mg, Chew, Daily, at 8am for cardiac health, # 30 tablet, 5 Refills, Maintenance, 06/19/23 8:19:00 AM EST, [facility], Partial fill upon patient request if [...] 1 Refills, Maintenance, 03/09/24 4:08:00 PM EDT, [facility], 7, APPLY A THIN LAYER TOPICALLY TWICE [...] 5 Refills, Maintenance, 05/03/23 12:43:00 PM EDT, [facility], 180, cm, 04/16/23 11:13:00 EDT, Height [...] Refills, Soft Stop, 09/30/23 10:38:00 AM EDT, [facility], 180, cm, 06/18/23 11:14:00 EST, Height Start Date: 09/30/23 Status: Ordered Quantity: 60.0 Unit: tablet Repeat number: 6 Compression Stockings See Instructions, # 2 pack/packet, Maintenance, surgical, calf length 20-30 mm Hg, 11/30/22 9:45:00 AM EDT, Supply Start Date: 11/30/22 Status: Ordered Quantity: 2.0 Unit: pack/packet Repeat number: 1 Desitin Rapid Relief 13% topical cream See Instructions, APPLY A THIN LAYER TOPICALLY TO CLAUDIO/ANAL AREA 3 TIMES A DAY NEEDED FOR RASH, # 57 Gm, 3 Refills, Maintenance, 06/21/23 6:55:00 AM EST, [facility], 10, APPLY A THIN LAYER TOPICALLY TO LCAUDIO/ANAL AREA 3 TIMES A DAY NEEDED FOR [...] 11 Refills, Maintenance, 02/20/24 9:13:00 AM EDT, [facility], 183, cm, 02/17/24 15:57:00 EDT, Height, 83, kg, 12/31/23 14:56:00 EDT, Dry Weight Start Date: 02/20/24 Stop Date: 02/04/27 Status: Ordered Quantity: 1080.0 Unit: capsule Repeat number: 12 docusate sodium 50 mg/5 mL oral solution 10 mL = 100 mg, By Mouth, Daily, 10ml daily by mouth at 8am for constipation, # 473 mL, 5 Refills, Maintenance, 06/19/23 8:21:00 AM EST, Solution, [facility], Partial fill upon patient request if the prescription is for a schedule II opioid drug., 180, cm, 06/18/23 11:14:00 EST, Height Start Date: 06/19/23 Status: Ordered Quantity: 473.0 Unit: mL Repeat number: 6 felbamate 400 mg oral tablet 2 tablet, By Mouth, 3 times a day, # 540 tablet, 11 Refills, Maintenance, 02/20/24 9:13:00 AM EDT, [facility], 183, cm, 02/17/24 15:57:00 EDT, Height, [...] Refills, Maintenance, 08/10/21 4:36:00 PM EST, Liquid, [facility], Partial fill upon patient request if the prescriptionis for a schedule II opioid drug., 180, cm, 04/25/21 10:54:00 EDT, Height Start Date: 08/10/21 Status: Ordered Quantity: 240.0 Unit: mL Repeat number: 2 lamotrigine 25 mg oral tablet See Instructions, Take 2 tablets (50mg) by mouth twice daily (for seizures), # 120 Unknown, [id number], Tot. Refills 10, Maintenance, 07/06/24 9:10:00 AM EST, Instructions Replace Required Details, Route to Pharmacy Electronically, [facility], 183, cm, 06/12/24 11:01:00 EST, Height, 83, kg, 12/31/23 14:56:00 EDT, Dry Weight Start Date: 07/06/24 Status: Ordered Quantity: 120.0 Unit: Unknown Repeat number: 11 levETIRAcetam 500 mg oral tablet 2 tablet, By Mouth, 3 times a day, # 540 tablet, 11 Refills, Maintenance, 02/20/24 9:14:00 AM EDT, [facility], 183, cm, 02/17/24 15:57:00 EDT, Height, [...] 5 Refills, Maintenance, 07/07/23 6:54:00 AM EST, [facility], 180, cm, 06/18/23 11:14:00 EST, Height Start Date: 07/07/23 Status: Ordered Quantity: 30.0 Unit: tablet Repeat number: 1 Milk of Magnesia 8% oral suspension See Instructions, TAKE 30ML BY MOUTH EVERY OTHER DAY AND TAKE 30 ML BY MOUTH ON 2ND DAY IF NO BM-GIVE ON OFF SCHEDULED DAY/FOR CONSTIPATION ENCOURAGE VEGETAB, # 360 mL, 10 Refills, Soft Stop, 06/22/24 1:02:00 PM EST, [facility], 183, cm, 06/12/24 11:01:00 EST, Height, 83, [...] used, # 6 each, 4 Refills, Maintenance, 07/06/24 11:02:00 AM EST, [facility], 183, cm, 06/12/24 11:01:00 EST, Height, 83, kg, 12/31/23 14:56:00 EDT, DryWeight Start Date: 07/06/24 Status: Ordered Quantity: 6.0 Unit: each Repeat number: 5 One A Day Vitamin One A Day Vitamin, See Instructions, # 30 tablet, Refills 11, Tot. Refills 11, Maintenance, One tablet by mouth daily Sarah Connor [id number], 08/27/17 3:32:32 PM EST, Compound Start Date: [...] 5 Refills, Maintenance, 07/19/23 6:45:00 PM EST, [facility], 30, MIX 17 GRAMS (ONE CAP [...] tablet, 3 Refills, Maintenance, 02/28/2412:09:00 PM EDT, [facility], 183, cm, 02/17/24 15:57:00 EDT, Height, 83, kg, 12/31/23 14:56:00 EDT, Dry Weight Start Date: 02/28/24 Status: Ordered Quantity: 90.0 Unit: tablet Repeat number: 4 simvastatin 40 mg oral tablet See Instructions, TAKE 1 TABLET BY MOUTH AT BEDTIME FOR HYPERLIPIDEMIA, # 90 tablet, Refills 3, Tot. Refills 3, Maintenance, 03/23/24 1:10:00 PM EDT, Instructions Replace Required Details, Route to Pharmacy Electronically, [facility], 183, cm, 02/17/24 15:57:00 EDT, Height, [...] 5 Refills, Maintenance, 03/13/23 6:56:00 PM EDT, [facility], 30, TAKE 1 TABLET BY MOUTH [...] Quantity: 1.0 Unit: Unknown Repeat number: 12 Vitamin D3 50,000 intl units oral capsule See Instructions, Take 1 capsule (50,000 units) by mouth once weekly on saturday morning (for supplement), # 4 Unknown, 11 Refills, Maintenance, 07/06/24 6:54:00 AM EST, [facility], 183, cm, 06/12/24 11:01:00 EST, Height, 83, kg, 12/31/23 14:56:00 EDT, Dry Weight Start Date: 07/06/24 Status: Ordered Quantity: 4.0 Unit: Unknown Repeat number: 1 Problem List Condition Confirmation Course Effective Dates [...] Effective Dates Health Status Clinical Service Informant Duncan-Gastaut syndrome Discharge Diagnosis 07/13/24 Intellectual disability Discharge Diagnosis 07/13/24 Vital Signs Most recent to oldest [Reference Range]: 1 Height 183 cm (07/13/24 2:46 PM) Weight 84 kg (07/13/24 2:46 PM) Body Mass Index [18.5-24.99 kg/m2] 25.08 kg/m2 *H* (07/13/24 2:46 PM) Blood Pressure [90-138/55-84 mm Hg] 101/ 69mm Hg (07/13/24 2:46 PM) Mode of Delivery (Oxygen) Room air (07/13/24 2:46 PM) Blood pressure sites Arm, right (07/13/24 2:46 PM) Weight Obtained Via Standing scale (07/13/24 2:46 PM) Social History Social History Type Response Smoking Status Never smoker; Tobacc o user in household: No entered on: 05/30/17 Sex Sex Representation Male (finding) Note * Mari Otto: PERFORM Event Display: Patient Education/Instruction Authored Date: [id number] Ambulatory Adult Visit Summary [facility] [address] [address] Name: JENNIFER JACKSON : 1965?? Visit: 07/13/2024 14:35?? Ambulatory Visit Instructions ?? Your Care Team Primary Care Provider Aldair Ladd MD? This Visit Provider Aldair Ladd MD Vitals Signs Systolic Blood Pressure: 101 mm Hg Height: 183 cm Diastolic Blood Pressure: 69 mm Hg Weight: 84 kg ?? Body Mass Index:??25.08 kg/m2??High ?? Body surface area: 2.07 What to do next Future Orders Valproic [...] prescribing provider. What How Much When Instructions Unchanged Acetaminophen (acetaminophen 325 mg oral tablet) [...] 3 WITH NO BM ?? Unchanged Cholecalciferol (Vitamin D3 50,000 intl units oral capsule) See instructions Take 1 capsule (50,000 units) by mouth once weekly on saturday morning (for supplement) ?? Unchanged Clonazepam (clonazePAM 0.5 mg oral [...] Unchanged Lamotrigine (lamotrigine 25 mg oral tablet) See instructions Take 2 tablets (50mg) by mouth twice daily (for seizures) ?? Unchanged levETIRAcetam (levETIRAcetam 500 mg oral tablet) 2 tab(s) Oral 3 times a day Duration: 90 Days Unchanged Levothyroxine (levothyroxine 0.088 mg oral tablet) See instructions TAKE 1 TABLET BY MOUTH DAILY IN THE AM FOR HYPOTHYROIDISM OK TO GIVE MED ON SCHEDULED FASTING LAB DAYS UPON RETURN ?? Unchanged Midazolam (Nayzilam 5 mg/ inh [...] One tablet by mouth daily Sarah Connor [id number] ?? Unchanged Miscellaneous Rx (Thick It) See [...] TIMES A DAY NEEDED FOR RASH ?? Medications and Immunizations Administered Medications Given During [...] are strongly encouraged to quit. Please call [facility] at [phone] or [phone] ([phone]) or log in to [email or web address] for referrals to smoking cessation programs. ?? The National Suicide Prevention Hotline is available 21/01 if you or someone you know needs to find a reason to keep living. By calling 5-202-246-Mobly (0832) you'll be connected to a skilled, trained counselor at a crisis center in your area. [facility] Health Portal You can view and manage your care through the patient portal or by using a health care michele of your choosing. [employer] is a website that allows you to securely view your medical information including your hospital discharge summary, office visit summaries, medications and follow-up visits. You can also request appointments, renew medications, and request access to your medical information using a health care michele of your choosing, or just ask a question. You can enroll at [email or web address] or register during your next office visit. [facility], in keeping with [facility] guidance, no longer requires face masks for [...] primary care provider, you may find a [facility] provider by calling [facility] [employer] [facility] at [phone]. Patient Care team information Care Team Personnel Name: Jason Boland RN Position: [facility] ED RN W/OE and Tasks Member Role: Primary Care Nurse Name: Krystle Nelson RN Position: [facility] RN Member Role: Primary Care Nurse Name: Aldair Ladd MD Position: [facility] Physician - Primary Care Member Role: PCP Address: [address] [place] [address]- Telecom: Name: Marcy Mullen RN Position: [facility] HBO Wound Member Role: Primary Care Nurse Name: Lisa Montoya MD Position: [facility] Physician - Primary Care Member Role: Lifetime Consulting Physician Address: [address] [place] [address] [facility]iatric [facility] [place] [address]- Telecom: Name: Olive Reyna RN Position: [facility] AMB Nurse Member Role: Primary Care Nurse Name: Courtney Conde RN Position: [facility] RN Supv Member Role: Primary Care Nurse Name: Kim Aviles RN Position: [facility] AMB Nurse Member Role: Primary Care Nurse Name: Maru Heart RN Position: [facility] SN RN Member Role: Primary Care Nurse Name: Amy Mark Position: [facility] AMB MA Member Role: Primary Care Nurse Care Team Related Persons Name: EREN JERNIGAN Name: DI CARDOZA Name: CEASAR KENDRICK Name: RYLIE COLLADO Insurance Providers Guarantor name[facility] Plan Information #: 1 Payer: [facility] Member Number: [id number] Policy Number: NA Group Number: [id number] Health Plan Information #: 2 Payer: [facility] Member Number: [id number] Policy Number: NA Group Number: [id number]
--- OUTSIDE RECORDS SUMMARY | 2024-07-25 16:11 | XMS_ITS | Continuity of Care Document ---
Author Organization [facility] Address [address] [place] [address]- Care Team Providers Care Property Clerk Name Role Phone Aldair Ladd MD [id number] Date[facility]s): 06/11/24 - 07/11/24 [facility] [address] [address]- Encounter Type: Triage Allergies, Adverse Reactions, Alerts Substance Criticality Severity Reaction Reaction Severity Status gentamicin Unable to assess criticality Unknown Active erythromycin Unable to assess criticality Unknown Active macrolide antibiotics Active ketolides Active Immunizations Given and Recorded Vaccine Date Status Refusal Reason SARS-CoV-2(COVID-19)mRNA-LNP vac([id number]) 07/30/23 Recorded influenza virus vaccine, inactivated 1 [...] 12/16/22 Recorded zoster vaccine, inactivated 09/30/22 Recorded [id number] 12y+ bivalent booster vax 04/26/22 Recorded tetanus/diphtheria/pertussis, [...] 05/22/98 Given 1Result Comment: done at the [facility] 2Result Comment: [facility] [id number] 3Result Comment: [id number] 4Result Comment: [id number] 5Result Comment: [07/09/2017] [facility]#[id number] 6Result Comment: [facility] [id number] 7Result Comment: [07/09/2017] [facility]#[id number] 8Result Comment: Lot #[id number] exp. 2007 [employer] 9Admin Note: [...] 5 Refills, Maintenance, 06/19/23 8:19:00 AM EST, [facility], Partial fill upon patient request if [...] Maintenance, 03/09/24 4:08:00 PM EDT, [facility], 7, APPLY A THIN LAYER TOPICALLY [...] 5 Refills, Maintenance, 05/03/23 12:43:00 PM EDT, [facility], 180, cm, 04/16/23 11:13:00 EDT, Height [...] Stop, 09/30/23 10:38:00 AM EDT, [facility], 180, cm, 06/18/23 11:14:00 EST, Height [...] Maintenance, 02/20/24 9:13:00 AM EDT, [facility], 183, cm, 02/17/24 15:57:00 EDT, Height, [...] Maintenance, 02/20/24 9:13:00 AM EDT, [facility], 183, cm, 02/17/24 15:57:00 EDT, Height, [...] Refills, Maintenance, 08/10/21 4:36:00 PM EST, Liquid, [facility], Partial fill upon patient request if the prescriptionis for a schedule II opioid drug., 180, cm, 04/25/21 10:54:00 EDT, Height Start Date: 08/10/21 Status: Ordered Quantity: 240.0 Unit: mL Repeat number: 2 lamotrigine 25 mg oral tablet See Instructions, Take 2 tablets (50mg) by mouth twice daily (for seizures), # 120 Unknown, [id number], Tot. Refills 10, Maintenance, 07/06/24 9:10:00 AM EST, Instructions Replace Required Details, Route to Pharmacy Electronically, [facility], 183, cm, 06/12/24 11:01:00 EST, Height, 83, kg, 12/31/23 14:56:00 EDT, Dry Weight Start Date: 07/06/24 Status: Ordered Quantity: 120.0 Unit: Unknown Repeat number: 11 levETIRAcetam 500 mg oral tablet 2 tablet, By Mouth, 3 times a day, # 540 tablet, 11 Refills, Maintenance, 02/20/24 9:14:00 AM EDT, [facility], 183, cm, 02/17/24 15:57:00 EDT, Height, [...] 5 Refills, Maintenance, 07/07/23 6:54:00 AM EST, [facility], 180, cm, 06/18/23 11:14:00 EST, Height [...] Refills, Soft Stop, 06/22/24 1:02:00 PM EST, [facility], 183, cm, 06/12/24 11:01:00 EST, Height, [...] 4 Refills, Maintenance, 07/06/24 11:02:00 AM EST, [facility], 183, cm, 06/12/24 11:01:00 EST, Height, 83, kg, 12/31/23 14:56:00 EDT, DryWeight Start Date: 07/06/24 Status: Ordered Quantity: 6.0 Unit: each Repeat number: 5 One A Day Vitamin One A Day Vitamin, See Instructions, # 30 tablet, Refills 11, Tot. Refills 11, Maintenance, One tablet by mouth daily Sarah Connor [id number], 08/27/17 3:32:32 PM EST, Compound Start Date: [...] 5 Refills, Maintenance, 07/19/23 6:45:00 PM EST, [facility], 30, MIX 17 GRAMS (ONE CAP [...] Refills, Maintenance, 02/28/2412:09:00 PM EDT, [facility], 183, cm, 02/17/24 15:57:00 EDT, Height, [...] Details, Route to Pharmacy Electronically, [facility], 183, cm, 02/17/24 15:57:00 EDT, Height, [...] 5 Refills, Maintenance, 03/13/23 6:56:00 PM EDT, [facility], 30, TAKE 1 TABLET BY MOUTH [...] 11 Refills, Maintenance, 07/06/24 6:54:00 AM EST, [facility], 183, cm, 06/12/24 11:01:00 EST, Height, [...] Team Personnel Name: Jason Boland RN Position: [facility] ED RN W/OE and Tasks Member Role: Primary Care Nurse Name: Krystle Nelson RN Position: [facility] RN Member Role: Primary Care Nurse Name: Aldair Ladd MD Position: [facility] Physician - Primary Care Member Role: PCP Address: [address] [place] [address]- Telecom: Name: Marcy Mullen RN Position: [facility] HBO Wound Member Role: Primary Care Nurse Name: Lisa Montyoa MD Position: [facility] Physician - Primary Care Member Role: Lifetime Consulting Physician Address: [address] [place] [address] Geriatric [facility] Palliative Care [place], [place] [address] Telecom: Name: Olive Reyna RN Position: [facility] Nurse Member Role: Primary Care Nurse Name: Kim Aviles RN Position: [facility] Nurse Member Role: Primary Care Nurse Name: Maru Heart RN Position: [facility] RN Member Role: Primary Care Nurse Name: Amy Mark Position: [facility] MA Member Role: Primary Care Nurse Care Team Related Persons Name: EREN JERNIGAN Name: DI CARDOZA Name: CEASAR KENDRICK Name: RYLIE COLLADO Insurance Providers Guarantor name: [facility] Plan Information #: 1 Payer: [facility] Member Number: NA Policy Number: NA Group Number: NA
--- OUTSIDE RECORDS SUMMARY | 2024-07-25 16:11 | XMS_ITS | Continuity of Care Document ---
Author Organization [facility] Address [address] [place] [address]- Care Team Providers Care Electrician Locomotive Name Role Phone Aldair Ladd MD Primary Care Physician [place] [facility] [place] 07/05/24 [facility] [address] [place] [address]- Attending Physician: Rasheed Nelson Admitting Physician: Rasheed Nelson Referring Physician: Leslie ArSiria Encounter Type: Triage Allergies, Adverse Reactions, Alerts Substance Criticality Severity Reaction Reaction Severity Status gentamicin Unable to assess criticality Unknown Active erythromycin Unable to assess criticality Unknown Active macrolide antibiotics Active ketolides Active Immunizations Given and Recorded Vaccine Date Status Refusal Reason SARS-CoV-2(COVID-19)mRNA-LNP vac([id number]) 07/30/23 Recorded influenza virus vaccine, inactivated 1 [...] 12/16/22 Recorded zoster vaccine, inactivated 09/30/22 Recorded [id number] 12y+ bivalent booster vax 04/26/22 Recorded tetanus/diphtheria/pertussis, [...] 05/22/98 Given 1Result Comment: done at the alf 2Result Comment: [facility] [id number] 3Result Comment: [id number] 4Result Comment: [id number] 5Result Comment: [07/09/2017] [facility]#[id number] 6Result Comment: [facility] [id number] 7Result Comment: [07/09/2017] [facility]#[id number] 8Result Comment: Lot #[id number] exp. 2007 [employer] 9Admin Note: 3rd dose Medications acetaminophen 325 mg oral tablet See Instructions, TAKE 2 TABLETS (650 MG) BY MOUTH EVERY 6 HOURS NEEDED FOR TEMP>100 OR PAIN EVIDENCED BY FACIAL GRIMACE / NTE 3,000 MG IN 24 HOURS, # 100 tablet, Refills 5, Maintenance, 05/23/22 2:03:00 PM EST, Instructions Replace Required Details, Route to Pharmacy Electronically, [facility], 180, cm, 05/21/22 10:27:00 EST, Height Start Date: 05/23/22 Status: Ordered Quantity: 100.0 Unit: tablet Repeat number: 1 Aspirin Low Dose 81 mg oral tablet, chewable 1 tablet = 81 mg, Chew, Daily, at 8am for cardiac health, # 30 tablet, 5 Refills, Maintenance, 06/19/23 8:19:00 AM EST, [facility], Partial fill upon patient request [...] 1 Refills, Maintenance, 03/09/24 4:08:00 PM EDT, [facility], 7, APPLY A THIN [...] 5 Refills, Maintenance, 05/03/23 12:43:00 PM EDT, [facility], 180, cm, 04/16/23 11:13:00 EDT, Height [...] Refills, Soft Stop, 09/30/23 10:38:00 AM EDT, [facility], 180, cm, 06/18/23 11:14:00 EST, Height [...] 5 Refills, Maintenance, 05/13/23 5:12:00 PM EST, [facility], 180, cm, 04/16/23 11:13:00 EDT, Height Start Date: 05/13/23 Status: Ordered Quantity: 4.0 Unit: capsule Repeat number: 1 Desitin Rapid Relief 13% topical cream See Instructions, APPLY A THIN LAYER TOPICALLY TO CLAUDIO/ANAL AREA 3 TIMES A DAY NEEDED FOR RASH, # 57 Gm, 3 Refills, Maintenance, 06/21/23 6:55:00 AM EST, [facility], 10, APPLY A THIN LAYER TOPICALLY [...] 06/03/23 9:56:00 AM EST, Compound, 180, cm, 239:29:00 EST, Height Start Date: 06/03/23 Status: Ordered [...] 1 Refills, Maintenance, 05/15/23 4:06:00 PM EST, [facility], 4, USE ONE ENEMA RECTALLY NEEDED [...] 11 Refills, Maintenance, 02/20/24 9:13:00 AM EDT, [facility], 183, cm, 02/17/24 15:57:00 [...] Refills, Maintenance, 06/19/23 8:21:00 AM EST, Solution, [facility], Partial fill upon patient request if the prescription is for a schedule II opioid drug., 180, cm, 06/18/23 11:14:00 EST, Height Start Date: 06/19/23 Status: Ordered Quantity: 473.0 Unit: mL Repeat number: 6 felbamate 400 mg oral tablet 2 tablet, By Mouth, 3 times a day, # 540 tablet, 11 Refills, Maintenance, 02/20/24 9:13:00 AM EDT, [facility], 183, cm, 02/17/24 15:57:00 [...] Refills, Maintenance, 08/10/21 4:36:00 PM EST, Liquid, [facility], Partial fill upon patient request [...] 9:13:00 AM EDT, Route to Pharmacy Electronically, [facility], Partial fill upon patient request if [...] 11 Refills, Maintenance, 02/20/24 9:14:00 AM EDT, [facility], 183, cm, 02/17/24 15:57:00 [...] RETURN, # 30 tablet, 5 Refills[facility], 06/18/23 11:14:00 EST, Height Start Date: 07/07/23 Status: Ordered Quantity: 30.0 Unit: tablet Repeat number: 1 midazolam 5 mg/inh nasal spray See Instructions, 5 mg in one nostril for seizure lasting longer than 5 minutes, or 4 seizures in a30 minute period. Can repeat once in 10 minutes if needed., # 3 each, 1 Refills, Maintenance, 10/07/23 10:57:00 AM EDT, [facility], need one for home, [...] Refills, Soft Stop, 06/22/24 1:02:00 PM EST, [facility], 183, cm, 06/12/24 11:01:00 [...] each, 4 Refills, Maintenance, 01/06/24 1:10:00 PMEDT, [facility], 183, cm, 01/03/24 9:43:00 EDT, Height, [...] One tablet by mouth daily Sarah Connor [id number], 08/27/17 3:32:32 PM EST, Compound Start Date: [...] 5 Refills, Maintenance, 07/19/23 6:45:00 PM EST, [facility], 30, MIX 17 GRAMS (ONE CAP [...] tablet, 3 Refills, Maintenance, 02/28/2412:09:00 PM EDT, [facility], 183, cm, 02/17/24 15:57:00 [...] Replace Required Details, Route to Pharmacy Electronically, [facility], 183, cm, 02/17/24 15:57:00 [...] 5 Refills, Maintenance, 03/13/23 6:56:00 PM EDT, [facility], 30, TAKE 1 TABLET BY MOUTH [...] Team Personnel Name: Jason Boland RN Position: [facility] ED RN W/OE and Tasks Member Role: Primary Care Nurse Name: Krystle Nelson RN Position: [facility] RN Member Role: Primary Care Nurse Name: Aldair Ladd MD Position: [facility] Physician - Primary Care Member Role: PCP Address: [address] [place] [id number]- Telecom: Name: Marcy Mullen RN Position: [facility] Wound Member Role: Primary Care Nurse Name: Lisa Montoya MD Position: [facility] Physician - Primary Care Member Role: [employer]etime Consulting Physician Address: [address] [place] [address] [facility] [place] [address]- Telecom: Name: Olive Reyna RN Position: [facility] Nurse Member Role: Primary Care Nurse Name: Kim Aviles RN Position: [facility] Nurse Member Role: Primary Care Nurse Name: Maru Heart RN Position: [facility] SN RN Member Role: Primary Care Nurse Name: Amy Mark Position: [facility] [place] Member Role: Primary Care Nurse Care Team Related Persons Name: EREN JERNIGAN Name: DI CARDOZA Name: CEASAR KENDRICK Name: RYLIE COLLADO Insurance Providers Guarantor name: [facility] Information #: 1 Payer: [facility] Member Number: NA Policy Number: NA Group Number: NA
== END 2024-07-25 16:18 | disposition home or self-care (01) ==
LOC: HO.ED 16:10
PROVIDERS: Emergency Provider Emergency Medicine; PCP Internal Medicine
DX: S60.032A Contusion of left middle finger without damage to nail, initial encounter (principal); X58.XXXA Exposure to other specified factors, initial encounter; Y93.9 Activity, unspecified; Y92.019 Unspecified place in single-family (private) house as the place of occurrence of the external cause; Y99.9 Unspecified external cause status
CPT/HCPCS: 73130; 99282; 99283

== ENCOUNTER → 2024-07-25 12:31 | Outpatient (BNV) | payer OTHER, SELFPAY | PROVIDERS: PCP Internal Medicine; Visit Provider Radiology Vascular & Interventional Radiology | DX: S60.222A Contusion of left hand, initial encounter (principal) | CPT/HCPCS: 73130 ==

== ENCOUNTER 2024-11-14 14:43 | Emergency (ER) | payer OTHER, SELFPAY ==
[2024-11-14] VITALS (7 sets, daily range): BP systolic 110–127; BP diastolic 54–72; PULSE 72–82; RESP 15–18; TEMP 36.2–37.4; O2SAT 94–97; BMI 25.1
--- NOTE | ~2024-11-14 | XR_ITS ---
CLINICAL HISTORY: fever, cough 1 view chest x-ray Comparison: CR/SR - XR CHEST 1V - 12/17/23 00:28 EDT Findings: Evaluation of the lungs is limited by overlying structures. No consolidative process. Heart size is normal. No acute fracture. IMPRESSION: Mildly limited evaluation without obvious focus of pneumonia. This document has been electronically signed by: Tiara Marino MD on 11/14/2024 17:39:55
--- NOTE | 2024-11-14 16:16 | ED_ITS ---
HPI - General Adult General Chief complaint: Upper Respiratory Symptoms Stated complaint: FEVER,CONGESTED.COUGH,FROM [facility] Time Seen by Provider: 11/14/24 16:16 History of Present Illness ED Provider: Kaleb BAEZA narrative: The patient is a medically complex 58-year-old male. 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 He is nonambulatory and although he is able to feed himself with his right arm and hand he requires total care. Apparently he had a runny nose and cough yesterday. Staff thought he might have had allergies. Today he continued to have cough and he had a fever this morning. Apparently his temperature was 102.1 degrees at 11:00 and 102.1 at 13:45. At that point staff felt he should be brought to the hospital for evaluation. The patient is nonverbal in his unable to give any history. Related Data Home Medications ?Medication ?Instructions ?Recorded ?Confirmed acetaminophen 325 mg tablet 650 mg PO Q6H PRN Fever Or Pain 04/01/23 12/17/23 bacitracin 500 unit/gram eye 0.25 inch ophthalmic (eye) BID 04/01/23 12/17/23 ointment wounds cholecalciferol (vitamin D3) 1,250 1,250 mcg PO WE@0900 04/01/23 12/17/23 mcg (50,000 unit) capsule clonazepam 0.5 mg tablet 0.25 mg PO BID@0800,1200 04/01/23 12/17/23 clonazepam 0.5 mg tablet 0.5 mg PO BEDTIME 04/01/23 12/17/23 divalproex 125 mg capsule,delayed 500 mg PO TID 04/01/23 12/17/23 release sprinkle (Depakote Sprinkles) felbamate 400 mg tablet 800 mg PO TID 04/01/23 12/17/23 levetiracetam 500 mg tablet 1,000 mg PO TID 04/01/23 12/17/23 levothyroxine 88 mcg tablet 88 mcg PO DAILY@0600 04/01/23 12/17/23 multivitamin with folic acid 400 1 tab PO DAILY 04/01/23 12/17/23 mcg tablet (Thera) sertraline 50 mg tablet 50 mg PO BEDTIME 04/01/23 12/17/23 simvastatin 40 mg tablet 40 mg PO BEDTIME 04/01/23 12/17/23 zinc oxide 13 % topical cream 1 appl topical TID PRN Rash 04/01/23 12/17/23 (Desitin Daily Defense) bisacodyl 10 mg rectal suppository [address] DAILY PRN Constipation 06/08/23 12/17/23 (OneLAX Bisacodyl) guaifenesin 100 mg/5 mL oral liquid 200 mg PO Q6H PRN Cough 06/08/23 12/17/23 magnesium hydroxide 400 mg/5 mL 30 ml PO Q OTHER DAY Constipation 06/08/23 12/17/23 oral suspension (Milk of Magnesia) polyethylene glycol 3350 17 17 g PO DAILY 06/08/23 12/17/23 gram/dose oral powder sodium phosphates 19 gram-[address] DAILY PRN Constipation 06/08/23 12/17/23 gram/118 mL enema (Enema Disposable) white petrolatum-mineral oil 57.3 0.25 inch ophthalmic (eye) BEDTIME 06/08/23 12/17/23 %-42.5 % eye ointment (Refresh P.M.) aspirin 81 mg chewable tablet 81 mg PO DAILY 12/17/23 12/17/23 bacitracin 500 unit/gram topical 1 appl topical BID PRN wounds 12/17/23 12/17/23 ointment docusate sodium 50 mg/5 mL oral 100 mg PO DAILY 12/17/23 12/17/23 liquid magnesium hydroxide 400 mg/5 mL 30 ml PO DAILY PRN Constipation 12/17/23 12/17/23 oral suspension (Milk of Magnesia) midazolam 5 mg/spray (0.1 mL) 5 mg intranasal Q10M PRN Seizures 12/17/23 12/17/23 nasal spray (Nayzilam) Previous Rx's ?Medication ?Instructions ?Recorded cefuroxime axetil 500 mg tablet 500 mg PO BID #10 tabs 12/23/23 lamotrigine 25 mg tablet 50 mg (2 x 25 mg) PO BID #270 tabs 12/23/23 doxycycline monohydrate 100 mg 100 mg PO BID #14 caps 11/14/24 capsule Allergies Allergy/AdvReac Type Severity Reaction Status Date / Time erythromycin base Allergy Unknown HIVES Verified 11/14/24 14:59 [ERYTHROMYCIN BASE] gentamicin [GENTAMICIN] Allergy Unknown UNKNOWN Verified 11/14/24 14:59 Macrolide Antibiotics Allergy Unknown UNKNOWN Verified 11/14/24 14:59 [MACROLIDE ANTIBIOTICS] KETOLIDES Allergy Unknown UNKNOWN Uncoded 12/17/23 00:01 Review of Systems 2 Review of Systems: Yes all other systems are reviewed and are negative [facility] Past Medical History Medical History Fever Epileptic seizure Depression Generalized anxiety disorder Ganglion cyst Aspiration pneumonia Parkinson disease Dysphagia Anxiety Constipation TIA (transient ischemic attack) Hyperlipidemia Glaucoma Hyperopia of left eye Proptosis Aphakia, both eyes Osteopenia Hypothyroidism Manjinder-Gastaut syndrome, intractable, with status epilepticus Social History Social History Household Members: Other Household Members Other:: other residents Housing: Other Housing Other:: pen[facility]entiary Do you presently have visiting nurse or other home services: No Unable to assess alcohol history related to: Unknown Comment: 1:1 sitter Patient Tobacco Use Status: Never used Tobacco e-Cigarette/Vaping Use: Never Used Second Hand Smoke Exposure: No service: No Physical Exam ED Vital Signs: Vital Signs - 24 hr 11/14/24 14:58 11/14/24 15:44 11/14/24 18:00 Temperature 99.3 F Pulse Rate 82 77 Respiratory Rate 18 18 Blood Pressure 110/54 L 125/72 Pulse Oximetry 95 95 95 Oxygen Delivery Method Room Air Room Air Room Air 11/14/24 18:52 11/14/24 20:32 11/14/24 22:26 Temperature 97.2 F Pulse Rate 75 72 72 Respiratory Rate 16 15 15 Blood Pressure 125/72 127/65 127/65 Pulse Oximetry 94 97 97 Oxygen Delivery Method Room Air Room Air Room Air BMI result Body Mass Index 25.1 Const Other: The patient is a very chronically ill-appearing 58-year-old male making incomprehensible vocalizations and gently tapping himself on the head with a lollypop. He does not seem in obvious distress. HENMT Other: Mucous membranes are moist Eyes Other: The patient has hazy corneas and seems to have a fixed upward gaze. Eyes do not seem to fully close and he has some conjunctival injection. Neck Other: No JVD. No obvious nuchal rigidity, no obvious adenopathy Resp Other: No increased work of breathing. Slight coarse air entry bilaterally. Cardio Rate: regular rate Rhythm: regular rhythm Heart sounds: S1 normal heart sound present and S2 normal heart sound present Other: The abdomen was soft and did not seem tender. Skin Other: Skin is pale and dry Neuro Other: The patient is awake. He vocalizes incomprehensibly. His left arm is contracted. He was holding a lollypop in his right hand and seemed to have normal use of his right arm and hand. His eyes seemed to have an upward gaze and I was not able to get a very good look at his eyes because of this upward gaze. It was difficult to formally test has a extraocular movements. He has little or no use of his legs. Extrem Other: The patient seems to have atrophic legs without asymmetry or tenderness or erythema. Medications Administered Discontinued Medications Generic Name Dose Route Start Last Admin Trade Name Freq PRN Reason Stop Dose Admin Doxycycline Hyclate 100 mg/ 250 mls @ 166.67 mls/hr 11/14/24 19:27 11/14/24 21:09 Sodium Chloride IV 11/14/24 20:56 Infused ONCE ONE Infusion Sodium Chloride 1,000 mls @ 999 mls/hr 11/14/24 19:30 11/14/24 20:40 Ns IV 11/14/24 20:30 Infused .Q1H1M MEETA Infusion Medical Decision Making Medical Decision Making [facility] Narrative: The patient is a chronically ill 58-year-old who [facility]. He has significant intellectual impairment and a chronic seizure disorder. He presents with a fever and respiratory symptoms. He does not appear septic or unstable. Chest x-ray shows no definite pneumonia but it is a suboptimal view because of positioning difficulties. Given his comorbidities I will place this patient on a course of doxycycline for a possible pneumonia or atypical pneumonia. He looks well enough for outpatient management. He received his 1st dose of doxycycline in the emergency department and will be discharged with a prescription for doxycycline 100 mg b.i.d. x7 days. He should follow up with his PCP or return to the ER if worse. Lab Data 11/14/24 18:01 11/14/24 18:01 Labs: Lab Results 11/14/24 11/14/24 Range/Units 16:25 18:01 WBC 6.1 (4.8-10.8) X10*3/uL RBC 4.10 L (4.60-5.80) X10*6/uL Hgb 12.2 L (14.0-18.0) g/dl Hct 34.9 L (42.0-52.0) % MCV 85.1 (80.0-98.0) fL MCH 29.8 (27.0-33.0) pg MCHC 35.0 (31.0-36.0) g/dl RDW 13.1 (11.0-16.0) % Plt Count 198 (160-400) X10*3/uL MPV 9.1 L (9.4-12.4) fL Immature Gran % (Auto) 0.2 (0.0-0.4) % Neut % (Auto) 64.4 (45-73) % Lymph % (Auto) 19.1 L (20-40) % [place] % (Auto) 12.9 H (2-11) % Eos % (Auto) 3.1 (0-4) % Baso % (Auto) 0.3 (0-2) % Lymph # (Auto) 1.2 (1.2-4.9) X10*3/uL [place] # (Auto) 0.8 (0.1-1.2) X10*3/uL Eos # (Auto) 0.2 (0.0-0.4) X10*3/uL Baso # (Auto) 0.0 (0.0-0.2) X10*3/uL Abs Immat Gran (auto) 0.01 (0.00-0.03) X10*3/uL Absolute Neuts (auto) 3.9 (2.0-8.3) x10*3/uL Absolute Nucleated RBC 0.000 (0.0-0.012) X10*3/uL Nucleated RBC % (auto) 0.0 (0.0-0.2) /100WBC Sodium 131 L (135-145) mmol/L Potassium 4.2 (3.3-5.1) mmol/L Chloride 94 L (96-108) mmol/L Carbon Dioxide 30 H (22-29) mmol/L Anion Gap 11 L (12-20) BUN 7 L (9-16) mg/dL Creatinine 0.52 (0.5-1.4) mg/dL Estim Creat Clear Calc 169.9 Estimated GFR > 60 Random Glucose 90 (60-115) mg/dL Lactic Acid 0.9 (0.5-2.0) mmol/L Calcium 9.2 (8.4-10.2) mg/dL Total Bilirubin 0.4 (0.0-1.0) mg/dL Direct Bilirubin 0.2 (0.0-0.5) mg/dL AST 19 (5-37) U/L ALT 8 (0-40) U/L Alkaline Phosphatase 51 (39-117) U/L C-Reactive Protein 3.02 H (< or = 0.50) mg/dL Total Protein 6.9 (6.5-8.0) g/dL Albumin 3.9 (3.5-5.0) g/dL Influenza Type A (PCR) NEGATIVE (Negative) Influenza Type B (PCR) NEGATIVE (Negative) RSV RNA Qual (PCR) NEGATIVE (Negative) SARS-CoV-2 RNA (RT-PCR) NEGATIVE (Negative) Discharge Plan Discharge Clinical Impression: Acute respiratory infection Patient Disposition: Home, Self-Care Additional Instructions: His testing in the emergency room today is quite benign. His x-ray does not show any obvious pneumonia. However since it is difficult to get a high-quality x-ray of him because of difficulty with positioning I think it would be reasonable to put him on a course of antibiotics in case there is a subtle pneumonia. He has been started on doxycycline. This is an antibiotic that should be taken 2 times a day. Please take as prescribed. Next dose tomorrow morning. Please stay in touch with his regular doctor for additional advice as needed. Return to the emergency room if significantly worse. Prescriptions: New doxycycline monohydrate 100 mg capsule 100 mg PO BID Qty: 14 0RF No Action levetiracetam 500 mg tablet 1,000 mg PO TID bacitracin 500 unit/gram ointment 0.25 inch ophthalmic (eye) BID clonazepam 0.5 mg Tablet 0.5 mg PO BEDTIME Rx Instructions: administer 30 minutes before bedtime clonazepam 0.5 mg Tablet 0.25 mg PO BID@0800,1200 felbamate 400 mg tablet 800 mg PO TID simvastatin 40 mg tablet 40 mg PO BEDTIME levothyroxine 88 mcg tablet 88 mcg PO DAILY@0600 sertraline 50 mg tablet 50 mg PO BEDTIME divalproex [Depakote Sprinkles] 125 mg capsule, delayed rel sprinkle 500 mg PO TID cholecalciferol (vitamin D3) 1,250 mcg (50,000 unit) capsule 1,250 mcg PO WE@0900 Desitin Daily Defense 13 % cream 1 appl topical TID PRN (Reason: Rash) multivitamin with folic acid [Thera] 400 mcg tablet 1 tab PO DAILY acetaminophen 325 mg Tablet 650 mg PO Q6H PRN (Reason: Fever Or Pain) Rx Instructions: not to exceed 3000mg in 24 hours guaifenesin 100 mg/5 mL Liquid 200 mg PO Q6H PRN (Reason: Cough) magnesium hydroxide [Milk of Magnesia] 400 mg/5 mL suspension 30 ml PO Q OTHER DAY bisacodyl [OneLAX Bisacodyl] 10 mg suppository [address] DAILY PRN (Reason: Constipation) Enema Disposable 19-7 gram/118 mL enema [address] DAILY PRN (Reason: Constipation) Rx Instructions: on day 4 of no BM polyethylene glycol 3350 17 gram/dose powder 17 g PO DAILY Rx Instructions: hold for loose stools Refresh P.M. 57.3-42.5 % ointment 0.25 inch ophthalmic (eye) BEDTIME docusate sodium 50 mg/5 mL Liquid 100 mg PO DAILY aspirin 81 mg Tablet,Chewable 81 mg PO DAILY Nayzilam 5 mg/spray (0.1 mL) [place],Non-Aerosol 5 mg INTRANASAL Q10M PRN (Reason: Seizures) bacitracin 500 unit/gram Ointment 1 appl TOPICAL BID PRN (Reason: wounds) magnesium hydroxide [Milk of Magnesia] 400 mg/5 mL Suspension 30 ml PO DAILY PRN (Reason: Constipation) lamotrigine 25 mg Tablet 50 mg PO BID Qty: 270 0RF cefuroxime axetil 500 mg tablet 500 mg PO BID Qty: 10 0RF Interventions: ED Discharge Assessment Last Done: 11/14/24 22:26 Discharge Date/Time: 11/14/24 22:28 Print Language: Unable To Collect
[2024-11-14 17:28] LABS: Influenza A PCR NEGATIVE (Negative); Influenza B PCR NEGATIVE (Negative); Resp Syncy Virus RNA Qual PCR NEGATIVE (Negative); SARS COV2 PCR INHOUSE NEGATIVE (Negative)
[2024-11-14 18:11] LABS: MANUAL DIFF FLAG NO
[2024-11-14 18:12] LABS: Basophils Percent Auto 0.3 % (0-2); Eosinophils Absolute Auto 0.2 X10*3/uL (0.0-0.4); Eosinophils Percent Auto 3.1 % (0-4); Hematocrit 34.9 % (42.0-52.0); Hemoglobin 12.2 g/dl (14.0-18.0); Imm Gran Abs Auto 0.01 X10*3/uL (0.00-0.03); Imm Gran Pct Auto 0.2 % (0.0-0.4); Lymphocytes Absolute Auto 1.2 X10*3/uL (1.2-4.9); Lymphocytes Percent Auto 19.1 % (20-40); Mean Corpuscular Hemoglobin 29.8 pg (27.0-33.0); Mean Corpuscular Volume 85.1 fL (80.0-98.0); Mean Platelet Volume 9.1 fL (9.4-12.4); Monocytes Absolute Auto 0.8 X10*3/uL (0.1-1.2); Monocytes Percent Auto 12.9 % (2-11); Neutrophils Absolute Auto 3.9 x10*3/uL (2.0-8.3); Neutrophils Percent Auto 64.4 % (45-73); Platelet Count 198 X10*3/uL (160-400); Red Cell Distribution Width 13.1 % (11.0-16.0); White Blood Count 6.1 X10*3/uL (4.8-10.8)
[2024-11-14 18:26] LABS: Alanine Aminotransferase 8 U/L (0-40); Albumin Level 3.9 g/dL (3.5-5.0); Alkaline Phosphatase 51 U/L (39-117); Anion Gap 11 (12-20); Aspartate Amino Transferase 19 U/L (5-37); Bilirubin Direct 0.2 mg/dL (0.0-0.5); Bilirubin Total 0.4 mg/dL (0.0-1.0); Blood Urea Nitrogen 7 mg/dL (9-16); C Reactive Protein 3.02 mg/dL (< or = 0.50); Calcium 9.2 mg/dL (8.4-10.2); Carbon Dioxide 30 mmol/L (22-29); Chloride 94 mmol/L (96-108); Creatinine Clr Calc Pharmacy 169.9; Estimated Glomerular Filt Rate > 60; Glucose Random 90 mg/dL (60-115); Lactic Acid 0.9 mmol/L (0.5-2.0); Potassium 4.2 mmol/L (3.3-5.1); Sodium 131 mmol/L (135-145); Total Protein 6.9 g/dL (6.5-8.0)
--- NOTE | 2024-11-14 19:27 | PC.NURSE ---
Informed MD that pt has an IV established. MD to change PO to IV abx.
[2024-11-14] MEDS: Doxycycline Hyclate 100 MG in 0.9 % Sodium Chloride 250 ML 166.67 MG IV (19:39)
[2024-11-14] MEDS: 0.9 % Sodium Chloride 1,000 ML 999 ML IV (19:39)
== END 2024-11-14 22:28 | disposition home or self-care (01) ==
PROVIDERS: Emergency Provider Emergency Medicine
DX: J06.9 Acute upper respiratory infection, unspecified (principal); R05.9 Cough, unspecified; R50.9 Fever, unspecified; G40.909 Epilepsy, unspecified, not intractable, without status epilepticus; G40.812 Lennox-Gastaut syndrome, not intractable, without status epilepticus
CPT/HCPCS: 0241U; 36415; 71045; 80048; 80076; 83605; 85025; 86140; 87040; 96361; 96374; 99284; 99285; J1271

== ENCOUNTER → 2024-11-14 16:21 | Outpatient (BNV) | payer OTHER, SELFPAY | PROVIDERS: Emergency Provider Emergency Medicine; Visit Provider Radiology Diagnostic Radiology | DX: R50.9 Fever, unspecified (principal); R05.9 Cough, unspecified | CPT/HCPCS: 71045 ==

== ENCOUNTER 2025-01-07 08:33 | Emergency (ER) | payer OTHER, SELFPAY ==
--- NOTE | ~2025-01-07 | XR_ITS ---
EXAMINATION: XR CHEST CLINICAL INFORMATION: seizure hx of aspiration COMPARISON: Numerous priors, most recently 11/04/2024.. TECHNIQUE: Frontal view of the chest was obtained. FINDINGS: Patient's chin obscures the majority of the left apex, and part of the right apex. There is mild cardiac enlargement. The aortic knob is obscured by patient's chin. The hilar silhouettes appear normal. Imaged aspects of the lungs are clear. Perceptible effusion or pneumothorax. No focal osseous or soft tissue abnormality. Degenerative changes of the bilateral shoulder joints and spine. XR/XR chest 1V IMPRESSION: 1. Limited examination due to patient's head/chin obscuring portions of the superior thorax. 2. Mild cardiac enlargement. 3. No active disease in the imaged lungs. Electronically signed by: Daniel Hernandez MD 01/07/2025 09:55 AM EDT
[2025-01-07 08:42] VITALS: BP 107/47; BP 118/80; PULSE 94; PULSE 98; RESP 16; TEMP 36.7; O2SAT 97; BMI 25.9
--- NOTE | 2025-01-07 09:19 | ECG_ITS ---
Test Reason : SEIZURE Blood Pressure : */* mmHG Vent. Rate : 73 BPM Atrial Rate : 73 BPM P-R Int : 184 ms QRS Dur : 86 ms QT Int : 366 ms P-R-T Axes : 35 -5 10 degrees QTcB Int : 403 ms Normal sinus rhythm Minimal voltage criteria for LVH, may be normal variant ( R in aVL ) Nonspecific T wave abnormality Abnormal ECG When compared with ECG of 04-Jul-2024 19:48, T wave inversion now evident in Anterior leads Referred By: Bri Ba Electronically Signed By: Velasquez Foster
[2025-01-07 10:30] VITALS: BP 95/52; PULSE 72; RESP 13; TEMP 36.6; O2SAT 94
[2025-01-07 10:51] LABS: MANUAL DIFF FLAG NO
[2025-01-07 10:54] LABS: Hematocrit 35.7 % (42.0-52.0); Hemoglobin 12.5 g/dl (14.0-18.0); Imm Gran Abs Auto 0.01 X10*3/uL (0.00-0.03); Imm Gran Pct Auto 0.2 % (0.0-0.4); Lymphocytes Absolute Auto 1.1 X10*3/uL (1.2-4.9); Mean Corpuscular HGB Conc 35.0 g/dl (31.0-36.0); Mean Corpuscular Hemoglobin 29.8 pg (27.0-33.0); Mean Corpuscular Volume 85.2 fL (80.0-98.0); NRBC Abs Auto 0.000 X10*3/uL (0.0-0.012); NRBC Pct Auto 0.0 /100WBC (0.0-0.2); Platelet Count 200 X10*3/uL (160-400); Red Blood Count 4.19 X10*6/uL (4.60-5.80); White Blood Count 4.3 X10*3/uL (4.8-10.8)
[2025-01-07 11:09] LABS: Alanine Aminotransferase 11 U/L (0-40); Albumin Level 3.9 g/dL (3.5-5.0); Alkaline Phosphatase 45 U/L (39-117); Anion Gap 9 (12-20); Aspartate Amino Transferase 19 U/L (5-37); Blood Urea Nitrogen 6 mg/dL (9-16); Calcium 8.8 mg/dL (8.4-10.2); Carbon Dioxide 31 mmol/L (22-29); Chloride 95 mmol/L (96-108); Creatinine Clr Calc Pharmacy 149.3; Estimated Glomerular Filt Rate > 60; Lipase 25 U/L (8-78); Magnesium 1.7 mg/dL (1.6-2.6); Potassium 4.2 mmol/L (3.3-5.1); Sodium 131 mmol/L (135-145); Total Protein 6.3 g/dL (6.5-8.0)
--- NOTE | 2025-01-07 11:20 | PC.NURSE ---
Patient is non-verbal, occasionally growling (baseline per guardianship/staff). Male purewick applied by this RN with assistance from [facility] ED PCT. Recently had linens changed, urinary incontinence. Dr. Shepard to speak with facility staff upon return to ED 22. Facility staff/guardians away from bedside at this time. Curtain open, within view of nurse's station staff. Seizure pads/precautions in place. Continuous monitoring within normal limits at this time. Care ongoing by this RN.
--- NOTE | 2025-01-07 11:38 | ED.SEIZURE ---
HPI - Seizure General Chief Complaint: Seizure Stated Complaint: MULTIPLE SZ @ SNF PER EMS Time Seen by Provider: 01/07/25 11:06 Source: old records reviewed (I reviewed patient's records from the residential home) and other (2 residential workers, they will contact his guardain re ED visit as per our discussion) Mode of arrival: EMS Limitations: other (cognitive impairment) History of Present Illness ED Provider: HPI Narrative: This is a 59-year-old male who is coming from residential, he has history of complex seizures, on levetiracetam, Depakote, Lamictal with a breakthrough seizure protocol otherwise patient is at his baseline, they would like clearance for patient to return to his work that he does not it community tomorrow, and he has a PCP and Neurology follow up scheduled with Dr. Shafer. They have enough medications for patient's management. No reports of trauma, fevers, chills, or skipped medication doses. Seizure History: Yes Related Data Home Medications ?Medication ?Instructions ?Recorded ?Confirmed acetaminophen 325 mg tablet 650 mg PO Q6H PRN Fever Or Pain 04/01/23 12/17/23 bacitracin 500 unit/gram eye 0.25 inch ophthalmic (eye) BID 04/01/23 12/17/23 ointment wounds cholecalciferol (vitamin D3) 1,250 1,250 mcg PO WE@0900 04/01/23 12/17/23 mcg (50,000 unit) capsule clonazepam 0.5 mg tablet 0.25 mg PO BID@0800,1200 04/01/23 12/17/23 clonazepam 0.5 mg tablet 0.5 mg PO BEDTIME 04/01/23 12/17/23 divalproex 125 mg capsule,delayed 500 mg PO TID 04/01/23 12/17/23 release sprinkle (Depakote Sprinkles) felbamate 400 mg tablet 800 mg PO TID 04/01/23 12/17/23 levetiracetam 500 mg tablet 1,000 mg PO TID 04/01/23 12/17/23 levothyroxine 88 mcg tablet 88 mcg PO DAILY@0600 04/01/23 12/17/23 multivitamin with folic acid 400 1 tab PO DAILY 10/02/23 06/18/24 mcg tablet (Thera) sertraline 50 mg tablet 50 mg PO BEDTIME 04/01/23 12/17/23 simvastatin 40 mg tablet 40 mg PO BEDTIME 04/01/23 12/17/23 zinc oxide 13 % topical cream 1 appl topical TID PRN Rash 04/01/23 12/17/23 (Desitin Daily Defense) bisacodyl 10 mg rectal suppository 10 mg IN DAILY PRN Constipation 06/08/23 12/17/23 (OneLAX Bisacodyl) guaifenesin 100 mg/5 mL oral liquid 200 mg PO Q6H PRN Cough 06/08/23 12/17/23 magnesium hydroxide 400 mg/5 mL 30 ml PO Q OTHER DAY Constipation 06/08/23 12/17/23 oral suspension (Milk of Magnesia) polyethylene glycol 3350 17 17 g PO DAILY 06/08/23 12/17/23 gram/dose oral powder sodium phosphates 19 gram-7 118 ml IN DAILY PRN Constipation 06/08/23 12/17/23 gram/118 mL enema (Enema Disposable) white petrolatum-mineral oil 57.3 0.25 inch ophthalmic (eye) BEDTIME 06/08/23 12/17/23 %-42.5 % eye ointment (Refresh P.M.) aspirin 81 mg chewable tablet 81 mg PO DAILY 12/17/23 12/17/23 bacitracin 500 unit/gram topical 1 appl topical BID PRN wounds 12/17/23 12/17/23 ointment docusate sodium 50 mg/5 mL oral 100 mg PO DAILY 12/17/23 12/17/23 liquid magnesium hydroxide 400 mg/5 mL 30 ml PO DAILY PRN Constipation 12/17/23 12/17/23 oral suspension (Milk of Magnesia) midazolam 5 mg/spray (0.1 mL) 5 mg intranasal Q10M PRN Seizures 12/17/23 12/17/23 nasal spray (Nayzilam) Previous Rx's ?Medication ?Instructions ?Recorded cefuroxime axetil 500 mg tablet 500 mg PO BID #10 tabs 12/23/23 lamotrigine 25 mg tablet 50 mg (2 x 25 mg) PO BID #270 tabs 12/23/23 doxycycline monohydrate 100 mg 100 mg PO BID #14 caps 11/14/24 capsule Allergies Allergy/AdvReac Type Severity Reaction Status Date / Time erythromycin base Allergy Unknown HIVES Verified 01/07/25 08:43 (ERYTHROMYCIN BASE) gentamicin (GENTAMICIN) Allergy Unknown UNKNOWN Verified 01/07/25 08:43 Macrolide Antibiotics Allergy Unknown UNKNOWN Verified 01/07/25 08:43 (MACROLIDE ANTIBIOTICS) KETOLIDES Allergy Unknown UNKNOWN Uncoded 12/17/23 00:01 Review of Systems Constitutional: Constitutional: Reports as per [facility] Past Medical History Medical History Fever Epileptic seizure Depression Generalized anxiety disorder Ganglion cyst Aspiration pneumonia Parkinson disease Dysphagia Anxiety Constipation TIA (transient ischemic attack) Hyperlipidemia Glaucoma Hyperopia of left eye Proptosis Aphakia, both eyes Osteopenia Hypothyroidism Manjinder-Gastaut syndrome, intractable, with status epilepticus Social History Social History Household Members: Other Household Members Other:: other residents Housing: Other Housing Other:: residential Do you presently have visiting nurse or other home services: No Unable to assess alcohol history related to: Unknown Comment: 1:1 sitter Patient Tobacco Use Status: Never used Tobacco e-Cigarette/Vaping Use: Never Used Second Hand Smoke Exposure: No Advance Directives: Yes Advance Directives on File: Yes Advance Directives Date on File: 04/01/22 service: No Physical Exam Vital Signs: Vital Signs: Last Vital Signs Temp 97.8 F 01/07/25 10:30 Pulse 72 01/07/25 10:30 Resp 13 01/07/25 10:30 BP 95/52 L 01/07/25 10:30 Pulse Ox 94 01/07/25 10:30 O2 Del Method Room Air 01/07/25 10:30 BMI result Body Mass Index 25.9 Const: Other: Gen: ?Blind, facial dysmorphia, CV: RRR, no obvious murmurs appreciated Resp: ?No wheezing rales rhonchi no stridor moving air well Abd: ?No rigidity to the abdomen on palpation MSK: Contracted upper extremities, appears that his left upper extremity and left lower extremity has contractures from prior stroke Skin: No bruising noted Neuro: ?Patient is at his baseline, does not follow commands, no verbal response, incomprehensible sounds Medical Decision Making Medical Decision Making MDM Narrative: Patient evaluated with seizures, I had a good discussion with his worker's that knowing very well and they also told me that will be in touch with any family members or his guardians after ED visits the follow up on a protocol and they are supposed to called EMS after the 2nd benzo was administered, otherwise patient is at his baseline they have had no other concerns, I did discuss with them mild hyponatremia, mild anemia, Depakote levels are within normal range, there was no evidence for any trauma did not feel that further imaging such as CT is indicated and he has good follow up Differential Diagnosis Differential Diagnoses: The differential diagnosis associated with the presentation includes Status epilepticus, hyponatremia, medication noncompliance, infectious etiology, subarachnoid hemorrhage, stroke Admission/Observation Consideration of admission/observation: Escalation of care including admission/observation considered Lab Data [facility] Lab Attestation statement: I reviewed the patient's lab results. 01/07/25 10:48 01/07/25 10:48 Labs: Lab Results 01/07/25 Range/Units 10:48 WBC 4.3 L (4.8-10.8) X10*3/uL RBC 4.19 L (4.60-5.80) X10*6/uL Hgb 12.5 L (14.0-18.0) g/dl Hct 35.7 L (42.0-52.0) % MCV 85.2 (80.0-98.0) fL MCH 29.8 (27.0-33.0) pg MCHC 35.0 (31.0-36.0) g/dl RDW 13.4 (11.0-16.0) % Plt Count 200 (160-400) X10*3/uL MPV 8.8 L (9.4-12.4) fL Immature Gran % (Auto) 0.2 (0.0-0.4) % Neut % (Auto) 63.1 (45-73) % Lymph % (Auto) 24.2 (20-40) % [place] % (Auto) 11.1 H (2-11) % Eos % (Auto) 1.2 (0-4) % Baso % (Auto) 0.2 (0-2) % Lymph # (Auto) 1.1 L (1.2-4.9) X10*3/uL [place] # (Auto) 0.5 (0.1-1.2) X10*3/uL Eos # (Auto) 0.1 (0.0-0.4) X10*3/uL Baso # (Auto) 0.0 (0.0-0.2) X10*3/uL Abs Immat Gran (auto) 0.01 (0.00-0.03) X10*3/uL Absolute Neuts (auto) 2.7 (2.0-8.3) x10*3/uL Absolute Nucleated RBC 0.000 (0.0-0.012) X10*3/uL Nucleated RBC % (auto) 0.0 (0.0-0.2) /100WBC Sodium 131 L (135-145) mmol/L Potassium 4.2 (3.3-5.1) mmol/L Chloride 95 L (96-108) mmol/L Carbon Dioxide 31 H (22-29) mmol/L Anion Gap 9 L (12-20) BUN 6 L (9-16) mg/dL Creatinine 0.55 (0.5-1.4) mg/dL Estim Creat Clear Calc 149.3 Estimated GFR > 60 Random Glucose 109 (60-115) mg/dL Calcium 8.8 (8.4-10.2) mg/dL Magnesium 1.7 (1.6-2.6) mg/dL Total Bilirubin 0.2 (0.0-1.0) mg/dL Direct Bilirubin < 0.2 (0.0-0.5) mg/dL AST 19 (5-37) U/L ALT 11 (0-40) U/L Alkaline Phosphatase 45 (39-117) U/L C-Reactive Protein 0.13 (< or = 0.50) mg/dL Total Protein 6.3 L (6.5-8.0) g/dL Albumin 3.9 (3.5-5.0) g/dL Lipase 25 (8-78) U/L Valproic Acid 99.4 (50.0-100.0) mcg/mL Radiology Impression Discussion of test interpretation with radiology: I have reviewed the radiologist's reading. External Record Review External record reviewed: Outpatient record and Primary care record Chronic Conditions Patient?s care impacted by: Other (Seizures, prior history of stroke, Parkinson's disease, Manjinder-Gastaut syndrome) Discharge Plan Discharge Clinical Impression: Epileptic seizure, Lena-Gastaut syndrome, intractable, without status epilepticus Patient Disposition: Home, Self-Care Additional Instructions: I have discussed patient's workup today that included chest x-ray and blood work, overall he is at his baseline, vital signs are stable, chest x-ray without any acute changes, blood work with mild anemia, stable hyponatremia, this as you are aware was monitored by PCP, and he has follow up appointment with both PCP and Dr. Shafer. As discussed he is able to return to his daycare on 01/08/2025, please continue his current management without any medication changes at this time. Any other issues or concerns come back to ER Prescriptions: No Action levetiracetam 500 mg tablet 1,000 mg PO TID bacitracin 500 unit/gram ointment 0.25 inch ophthalmic (eye) BID clonazepam 0.5 mg Tablet 0.5 mg PO BEDTIME Rx Instructions: administer 30 minutes before bedtime clonazepam 0.5 mg Tablet 0.25 mg PO BID@0800,1200 felbamate 400 mg tablet 800 mg PO TID simvastatin 40 mg tablet 40 mg PO BEDTIME levothyroxine 88 mcg tablet 88 mcg PO DAILY@0600 sertraline 50 mg tablet 50 mg PO BEDTIME divalproex [Depakote Sprinkles] 125 mg capsule, delayed rel sprinkle 500 mg PO TID cholecalciferol (vitamin D3) 1,250 mcg (50,000 unit) capsule 1,250 mcg PO WE@0900 Desitin Daily Defense 13 % cream 1 appl topical TID PRN (Reason: Rash) multivitamin with folic acid [Thera] 400 mcg tablet 1 tab PO DAILY acetaminophen 325 mg Tablet 650 mg PO Q6H PRN (Reason: Fever Or Pain) Rx Instructions: not to exceed 3000mg in 24 hours guaifenesin 100 mg/5 mL Liquid 200 mg PO Q6H PRN (Reason: Cough) magnesium hydroxide [Milk of Magnesia] 400 mg/5 mL suspension 30 ml PO Q OTHER DAY bisacodyl [OneLAX Bisacodyl] 10 mg suppository 10 mg IN DAILY PRN (Reason: Constipation) Enema Disposable 19-7 gram/118 mL enema 118 ml IN DAILY PRN (Reason: Constipation) Rx Instructions: on day 4 of no BM polyethylene glycol 3350 17 gram/dose powder 17 g PO DAILY Rx Instructions: hold for loose stools Refresh P.M. 57.3-42.5 % ointment 0.25 inch ophthalmic (eye) BEDTIME docusate sodium 50 mg/5 mL Liquid 100 mg PO DAILY aspirin 81 mg Tablet,Chewable 81 mg PO DAILY Nayzilam 5 mg/spray (0.1 mL) [place],Non-Aerosol 5 mg INTRANASAL Q10M PRN (Reason: Seizures) bacitracin 500 unit/gram Ointment 1 appl TOPICAL BID PRN (Reason: wounds) magnesium hydroxide [Milk of Magnesia] 400 mg/5 mL Suspension 30 ml PO DAILY PRN (Reason: Constipation) lamotrigine 25 mg Tablet 50 mg PO BID Qty: 270 0RF cefuroxime axetil 500 mg tablet 500 mg PO BID Qty: 10 0RF doxycycline monohydrate 100 mg capsule 100 mg PO BID Qty: 14 0RF Print Language: Unable To Collect
--- NOTE | 2025-01-07 11:48 | PC.NURSE ---
Plan to transfer patient back to [address] [place] [address] (detention address) via ambulance. Arranging ambulance ride at this time. 2 facility staff members remain at bedside at this time. Care ongoing by this RN until discharge.
[2025-01-07 12:30] VITALS: BP 110/55; PULSE 70; RESP 15; TEMP 36.6; O2SAT 96
[2025-01-07 13:02] LABS: Appearance Urine Clear; Glucose Urine UA Negative (Negative); PH 8.0 (5.0-9.0); Specific Gravity - Urine 1.010 (1.005-1.025)
--- NOTE | 2025-01-07 14:51 | PC.NURSE ---
EMS ETA 16:30 per ED department secretary. Spoke with Dr. Shepard regarding ordering the patient's scheduled medications to be administered while in ED. Awaiting response & orders. global director air and climate change (Whitney Marques) aware.
--- NOTE | 2025-01-07 15:41 | PC.NURSE ---
Spoke with pharmacist (Cecil). Felbamate unavailable at [facility]. No interchangeable alternative available. Continue to await EMS transfer back to halfway, ETA 16:30 per admin secretary. Will give other 2 medications. Bedside/facility staff member aware.
[2025-01-07] MEDS: Divalproex Sodium Sprinkles 125 MG CAP.DR.SPR 500 MG PO (15:49)
[2025-01-07 16:41] VITALS: BP 110/55; PULSE 70; RESP 15; TEMP 36.6; O2SAT 96
== END 2025-01-07 16:41 | disposition home or self-care (01) ==
PROVIDERS: Emergency Medicine; Emergency Provider Emergency Medicine
DX: G40.909 Epilepsy, unspecified, not intractable, without status epilepticus (principal); G40.814 Lennox-Gastaut syndrome, intractable, without status epilepticus
CPT/HCPCS: 36415; 71045; 80048; 80076; 80164; 81003; 83690; 83735; 85025; 86140; 93005; 99284

== ENCOUNTER → 2025-01-07 09:19 | Outpatient (BNV) | payer OTHER, SELFPAY | PROVIDERS: Visit Provider Radiology Diagnostic Radiology | DX: R56.9 Unspecified convulsions (principal) | CPT/HCPCS: 71045 ==

== ENCOUNTER → 2025-01-07 09:19 | Outpatient (BNV) | payer OTHER, SELFPAY | PROVIDERS: Emergency Provider Emergency Medicine; Visit Provider Internal Medicine Cardiovascular Disease | DX: R94.31 Abnormal electrocardiogram [ECG] [EKG] (principal); R56.9 Unspecified convulsions | CPT/HCPCS: 93010 ==

== ENCOUNTER 2025-01-26 23:08 | Inpatient (IN) | payer OTHER, SELFPAY ==
--- OUTSIDE RECORDS SUMMARY | 2025-01-21 23:59 | XMS_ITS | Continuity of Care Document ---
Author Organization [facility] Address [address] [place] [id number]- Care Team Providers Care Ekg Technician Name Role Phone Aldair Ladd MD Primary Care Physician Encounter 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 Seizure disorder(Discharge Diagnosis) - 01/14/25 Attending Physician: Aldair Ladd MD Encounter Type: Office Visit Allergies, Adverse Reactions, Alerts Substance Criticality Severity Reaction Reaction Severity Status gentamicin Unable to assess criticality Unknown Active erythromycin Unable to assess criticality Unknown Active macrolide antibiotics Active ketolides Active Immunizations Given and Recorded Vaccine Date Status Refusal Reason SARS-CoV-2(COVID-19)mRNA-LNP vac([id number]) 07/30/23 Recorded influenza virus vaccine, inactivated 1 [...] 12/16/22 Recorded zoster vaccine, inactivated 09/30/22 Recorded [id number] 12y+ bivalent booster vax 04/26/22 Recorded tetanus/diphtheria/pertussis, [...] 05/22/98 Given 1Result Comment: done at the detention 2Result Comment: [facility] [id number] 3Result Comment: [id number] 4Result Comment: [id number] 5Result Comment: [07/09/2017] [facility]#[id number] 6Result Comment: [facility] [id number] 7Result Comment: [07/09/2017] [facility]#[id number] 8Result Comment: Lot #[id number] exp. 2007 [employer] 9Admin Note: 3rd dose Medications acetaminophen 325 mg oral tablet See Instructions, TAKE 2 TABLETS (650 MG) BY MOUTH EVERY 6 HOURS NEEDED FOR TEMP>100 OR PAIN EVIDENCED BY FACIAL GRIMACE / NTE 3,000 MG IN 24 HOURS, # 100 tablet, Refills 5, Maintenance, 05/23/22 2:03:00 PM EST, Instructions Replace Required Details, Route to Pharmacy Electronically, [facility], 180, cm, 05/21/22 10:27:00 EST, Height Start Date: 05/23/22 Status: Ordered Quantity: 100.0 Unit: tablet Repeat number: 1 Aspirin Low Dose 81 mg oral tablet, chewable 1 tablet = 81 mg, Chew, Daily, at 8am for cardiac health, # 30 tablet, 5 Refills, Maintenance, 11/08/24 10:44:00 AM EDT, [facility], Partial fill upon patient request if the prescription is fora schedule II opioid drug., 183, cm, 07/29/24 9:53:00 EST, Height, 83, kg, 12/31/23 14:56:00 EDT, Dry Weight Start Date: 11/08/24 Status: Ordered Quantity: 30.0 Unit: tablet Repeat number: 6 bacitracin zinc 500 units/g topical ointment See Instructions, APPLY A THIN LAYER TOPICALLY TWICE DAILY NEEDED FOR SUPERFICIAL WOUNDS OR ABRASIONS FOR HEALING, # 28 Gm, 1 Refills, Maintenance, 03/09/24 4:08:00 PM EDT, [facility], 7, APPLY A THIN LAYER [...] 5 Refills, Maintenance, 05/03/23 12:43:00 PM EDT, [facility], 180, cm, 04/16/23 11:13:00 EDT, Height [...] Refills, Soft Stop, 09/30/23 10:38:00 AM EDT, [facility], 180, cm, 06/18/23 11:14:00 EST, [...] 3 Refills, Maintenance, 06/21/23 6:55:00 AM EST, [facility], 10, APPLY A THIN LAYER TOPICALLY [...] 1 Refills, Maintenance, 05/15/23 4:06:00 PM EST, [facility], 4, USE ONE ENEMA RECTALLY NEEDED [...] 11 Refills, Maintenance, 02/20/24 9:13:00 AM EDT, [facility], 183, cm, 02/17/24 15:57:00 EDT, Height, 83, kg, 12/31/23 14:56:00 EDT, Dry Weight Start Date: 02/20/24 Stop Date: 02/04/27 Status: Ordered Quantity: 1080.0 Unit: capsule Repeat number: 12 docusate sodium 150 mg/15 ml oral liquid 10 mL = 100 mg, By Mouth, Daily at bedtime, # 300 mL, 11 Refills, Maintenance, 11/08/24 10:47:00 AM EDT, Liquid, [facility], Partial fill upon patient request if the prescription is for a schedule II opioid drug., 183, cm, 07/29/24 9:53:00 EST, Height, 83, kg, 12/31/23 14:56:00 EDT, Dry Weight Start Date: 11/08/24 Status: Ordered Quantity: 300.0 Unit: mL Repeat number: 12 docusate sodium 50 mg/5 mL oral solution 10 mL = 100 mg, By Mouth, Daily, 10ml daily by mouth at 8am for constipation, # 473 mL, 5 Refills, Maintenance, 06/19/23 8:21:00 AM EST, Solution, [facility], Partial fill upon patient request if the prescription is for a schedule II opioid drug., 180, cm, 06/18/23 11:14:00 EST, Height Start Date: 06/19/23 Status: Ordered Quantity: 473.0 Unit: mL Repeat number: 6 felbamate 400 mg oral tablet 2 tablet, By Mouth, 3 times a day, # 540 tablet, 11 Refills, Maintenance, 02/20/24 9:13:00 AM EDT, [facility], 183, cm, 02/17/24 15:57:00 EDT, [...] 1 guaiFENesin 100 mg/5 mL oral liquid 10 mL, By Mouth, Every 6 hours, PRN as needed for cough, notify hcp if cough persists longer than 72 hours, # 120 Unknown, 0 Refills, Maintenance, 11/20/24 2:16:00 PM EDT, [facility], 183, cm, 11/19/24 10:29:00 EDT, Height, 83, kg, 12/31/23 14:56:00 EDT, Dry Weight Start Date: 11/20/24 Status: Ordered Quantity: 120.0 Unit: Unknown Repeat number: 1 lamotrigine 25 mg oral tablet See Instructions, Take 2 tablets (50mg) by mouth twice daily (for seizures), # 120 Unknown, [id number], Tot. Refills 10, Maintenance, 07/06/24 9:10:00 AM EST, Instructions Replace Required Details, Route to Pharmacy Electronically, [facility], 183, cm, 06/12/24 11:01:00 EST, Height, 83, kg, 12/31/23 14:56:00 EDT, Dry Weight Start Date: 07/06/24 Status: Ordered Quantity: 120.0 Unit: Unknown Repeat number: 11 levETIRAcetam 500 mg oral tablet 2 tablet, By Mouth, 3 times a day, # 540 tablet, 11 Refills, Maintenance, 02/20/24 9:14:00 AM EDT, [facility], 183, cm, 02/17/24 15:57:00 EDT, [...] RETURN, # 30 tablet, 5 Refills, Maintenance, 11/08/24 10:44:00 AM EDT, [facility], 183, cm, 07/29/24 9:53:00 EST, Height, 83, kg, 12/31/23 14:56:00 EDT, Dry Weight Start Date: 11/08/24 Status: Ordered Quantity: 30.0 Unit: tablet Repeat number: 6 Milk of Magnesia 8% oral suspension See Instructions, TAKE 30ML BY MOUTH EVERY OTHER DAY AND TAKE 30 ML BY MOUTH ON 2ND DAY IF NO BM-GIVE ON OFF SCHEDULED DAY/FOR CONSTIPATION ENCOURAGE VEGETAB, # 360 mL, 10 Refills, Soft Stop, 06/22/24 1:02:00 PM EST, [facility], 183, cm, 06/12/24 11:01:00 EST, Height, [...] needed in 24hr period use other nostril, y day program is used, # 6 each, 4 Refills, Maintenance, 10/06/24 7:43:00 AMEDT, [facility], 183, cm, 07/29/24 9:53:00 EST, Height, 83, kg, 12/31/23 14:56:00 EDT, Dry Weight Start Date: 10/06/24 Status: Ordered Quantity: 6.0 Unit: each Repeat number: 5 One A Day Vitamin One A Day Vitamin, See Instructions, # 30 tablet, Refills 11, Tot. Refills 11, Maintenance, One tablet by mouth daily Sarah Connor [id number], 08/27/17 3:32:32 PM EST, Compound Start Date: [...] 5 Refills, Maintenance, 07/19/23 6:45:00 PM EST, [facility], 30, MIX 17 GRAMS (ONE CAP [...] tablet, 3 Refills, Maintenance, 02/28/2412:09:00 PM EDT, [facility], 183, cm, 02/17/24 15:57:00 EDT, [...] Replace Required Details, Route to Pharmacy Electronically, [facility], 183, cm, 02/17/24 15:57:00 EDT, [...] 5 Refills, Maintenance, 03/13/23 6:56:00 PM EDT, [facility], 30, TAKE 1 TABLET BY MOUTH [...] 11 Refills, Maintenance, 07/06/24 6:54:00 AM EST, [facility], 183, cm, 06/12/24 11:01:00 EST, Height, [...] Effective Dates Health Status Clinical Service Informant Hyponatremia Discharge Diagnosis 01/14/25 Manjinder-Gastaut syndrome Discharge Diagnosis 01/14/25 Seizure disorder Discharge Diagnosis 01/14/25 Social History Social History Type Response Smoking Status Never smoker; Tobacc o user in household: No entered on: 05/30/17 Sex Sex Representation Male (finding) Note * Lisa Marshall: PERFORM Event Display: Patient Education/Instruction Authored Date: [id number] Ambulatory Adult Visit Summary [facility] [address] [address] Name: JENNIFER JACKSON : 1965?? Visit: 01/14/2025 14:01?? Ambulatory Visit Instructions ?? Your Care Team Primary Care Provider Aldair Ladd MD? This Visit Provider Aldair Ladd MD Your Diagnosis Hyponatremia Almond-Gastaut syndrome Seizure disorder Vitals Signs Pulse Rate: 87 bpm Height: 183 cm Systolic Blood Pressure: 109 mm Hg Weight: 80 kg Diastolic Blood Pressure: 71 mm Hg Body Mass Index: 23.89 kg/m2 Oxygen Saturation: 97 % Body surface area: 2.02 What to do next Scheduled Follow-Up Appointments Saturday 10:00 AM EDT ?? With: Tito Shafer MD Where: [facility] [address] [place] [address], [address] [place] [address]- Status: Pending Future Orders Valproic Acid Level - Routine, [...] Single or Recurring Future Order, [facility], Blood?? Electrolytes - Routine, Once, 01/04/25 12:43:00 EDT, Order for Today, [facility], Blood?? Comprehensive Metabolic Panel - Routine, Once, 01/14/25 14:32:00 EDT, Single or Recurring Future Order, [facility], [...] units) by mouth once weekly on saturday (for supplement) ?? Unchanged Clonazepam (clonazePAM 0.5 [...] Duration: 90 Days Unchanged Docusate (docusate sodium 150 mg/ 15 ml oral liquid) 10 Milliliter Oral Daily at Bedtime Unchanged Docusate (docusate sodium 50 mg/ 5 [...] (guaiFENesin 100 mg/ 5 mL oral liquid) 10 Milliliter Oral Every 6 hours as needed for as needed for cough notify hcp if cough persists longer than 72 hours ?? Unchanged Lamotrigine (lamotrigine 25 mg oral [...] One tablet by mouth daily Sarah Connor [id number] ?? Unchanged Miscellaneous Rx (Thick It) See [...] TIMES A DAY NEEDED FOR RASH ?? Test Performed Below is a partial list of the tests performed during your Visit. You may have had other tests and procedures not included in this list. Please discuss all test results with your provider. Comprehensive Metabolic Panel?-- Results Pending -- Medications and Immunizations Administered Medications Given During [...] are strongly encouraged to quit. Please call [facility] at [phone] or [phone] North ([phone]) or log in to [email or web address] for referrals to smoking cessation programs. ?? The National Suicide Prevention Hotline is available 21/01 if you or someone you know needs to find a reason to keep living. By calling 8-243-606-Fontself (0092) you'll be connected to a skilled, trained counselor at a crisis center in your area. [facility] [employer] Portal You can view and manage your care through the patient portal or by using a health care michele of your choosing. [employer] is a website that allows you to securely view your medical information including your hospital discharge summary, office visit summaries, medications and follow-up visits. You can also request appointments, renew medications, and request access to your medical information using a health care michele of your choosing, or just ask a question. You can enroll at [email or web address] or register during your next office visit. [facility], in keeping with [facility] guidance, no longer requires face [...] primary care provider, you may find a [facility] provider by calling [facility] at [phone]. Patient Care team information Care Team Personnel Name: Jason Boland RN Position: [facility] ED RN W/OE and Tasks Member Role: Primary Care Nurse Name: Krystle Nelson RN Position: [facility] RN Member Role: Primary Care Nurse Name: Aldair Ladd MD Position: [facility] Physician - Primary Care Member Role: PCP Address: [address] [place] [address]- Telecom: Name: Marcy Mullen RN Position: [facility] Wound Member Role: Primary Care Nurse Name: Lisa Montoya MD Position: [facility] Physician - Primary Care Member Role: Lifetime Consulting Physician Address: [address] [place] [address] Geriatric [facility] [place] [address]- Telecom: Name: Olive Reyna RN Position: [facility] Hospital Supervisor Facepiece Line Member Role: Primary Care Nurse Name: Courtney Conde RN Position: [facility] RN Supv Member Role: Primary Care Nurse Name: Kim Aviles RN Position: [facility] AMB Nurse Member Role: Primary Care Nurse Name: Maru Heart RN Position: [facility] SN RN Member Role: Primary Care Nurse Name: Amy Mark Position: [facility] AMB MA Member Role: Primary Care Nurse Care Team Related Persons Name: EREN JERNIGAN Name: DI CARDOZA Name: CEASAR KENDRICK Name: RYLIE COLLADO Insurance Providers Guarantor name: [facility] [employer] [facility] Information #: 1 Payer: [facility] Payer Identifier: NA Member Number: [id number] Group Number: [id number] Subscriber Identifier: [id number] Relationship to Subscriber: self Coverage Type: Medicaid (Managed Care) Coverage Verification Date: NA Telecom: NA Address: NA
--- NOTE | ~2025-01-26 | XR_ITS ---
CLINICAL HISTORY: dyspnea, fever 1 view chest x-ray Comparison: CR - XR CHEST 1V - 11/14/24 16:33 EDT Findings: Bibasilar patchy opacities, left worse than right. Right basilar atelectasis with small effusion. No pneumothorax. Similar prominent/enlarged cardiac silhouette. No acute fracture. IMPRESSION: 1. Bibasilar patchy opacities, left worse than right. Correlation for pneumonia or aspiration advised. 2. Right basilar atelectasis with small effusion. This document has been electronically signed by: Daniel Cedillo MD on 01/27/2025 01:36:32
--- NOTE | ~2025-01-26 | CT_ITS ---
CLINICAL HISTORY: Continued aspiration? CT chest without contrast Comparison: Chest x-ray from 01/28/2025 Findings: Bilateral airspace disease is nonspecific and concerning for pneumonitis/pneumonia with consolidation partially imaged in the right lung base and multiple opacities including both upper lobes. Small-moderate bilateral pleural effusions present. Nonspecific low-density of the lung bases with motion artifacts. No pneumothorax. Mild mediastinal fluid with small pericardial effusion. Moderate cardiomegaly. Vascular and valve calcifications noted. Coronary artery calcifications present. Imaged rib deformities/fractures appear old/chronic. Degenerative changes include imaged shoulders and imaged spine, with severe osteoarthritis of the left glenohumeral joint and 1.5 cm left lower loose body. Mild imaged vertebral height losses appear old/chronic accentuated by Schmorl's nodes. Ligament calcifications and facet arthropathy are multifocal. Mild fat deposition of the imaged liver in the imaged abdomen. IMPRESSION: 1. Multifocal airspace disease concerning for pneumonitis and/or multifocal pneumonia. Recommend attention on follow-up to ensure resolution. 2. Bilateral pleural effusions. This document has been electronically signed by: Ryne Marian MD on 02/01/2025 19:56:14
--- NOTE | ~2025-01-26 | XR_ITS ---
EXAMINATION: XR CHEST CLINICAL INFORMATION: pneumonia COMPARISON: 01/27/2025, 01/07/2025. TECHNIQUE: Frontal view of the chest was obtained. FINDINGS: Patient's chin again obscures the majority of the left apex, and a portion of the right apex. There is mild cardiac enlargement. The superior mediastinum is again obscured by the patient's chin. Low lung volumes. There has been significant worsening of diffuse groundglass haziness of both lungs, with more confluent opacities in both lung bases. A left effusion is suspected. No definite right effusion. No focal osseous or soft tissue abnormality. Degenerative changes in the shoulder joints and spine. XR/XR chest 1V IMPRESSION: 1. Low lung volumes with significant worsening of diffuse opacities bilaterally, most confluent in the lung bases. Suspect a small left effusion. Findings significantly worsened from the prior radiograph of 01/27/2025. Electronically signed by: Daniel Hernandez MD 01/28/2025 10:10 AM EDT
--- NOTE | ~2025-01-26 | CT_ITS ---
EXAMINATION: CT CHEST WITHOUT CONTRAST CLINICAL INFORMATION: Suspected aspiration pneumonia COMPARISON: From one day earlier and June 08, 2023 TECHNIQUE: Multidetector volumetric CT imaging of the chest was done. Axial MIP volume rendering provided. Sagittal and coronal reformatted images were obtained. This CT examination was performed using dose optimization techniques as appropriate, variously including the following: *Automated exposure control *Adjustment of mA and/or kV according to patient size (this includes techniques or standardized protocols for targeted exams where dose is matched to indication/reason for exam; i.e. extremities or head) *Use of iterative reconstruction technique DLP: 295 mGY*cm FINDINGS: LUNGS: Again seen are multifocal groundglass and airspace opacities greatest in the right upper lobe and also involving the right lower lobe and left upper lobe, especially the lingula. MEDIASTINUM: Unremarkable. CORONARY ARTERY CALCIFICATION: Present PLEURA: Moderate right and small left pleural effusions are again noted. Again seen is linear high attenuation in the lower lobes at the interface of pleural effusions and atelectatic lung that has increased since May 2023. AXILLA: No lymphadenopathy. UPPER ABDOMEN: Unremarkable. OSSEOUS STRUCTURES: Again seen is severe hyperkyphotic curvature of the cervicothoracic spine with syndesmophytes and anterior bridging osteophytes. There is a healed lateral right ninth rib fracture. CT/CT chest wo IV con IMPRESSION: Stable bilateral multifocal pneumonia and bilateral pleural effusions with airspace disease most advanced in the right upper lobe . Stable degenerative changes in the spine that could related to ankylosing spondylitis versus diffuse idiopathic skeletal hyperostosis (DISH). Fleischner guidelines were followed. Electronically signed by: Anuj Gross MD 02/02/2025 10:19 AM EDT
--- NOTE | 2025-01-26 23:17 | ECG_ITS ---
Test Reason : DYSPNEA Blood Pressure : */* mmHG Vent. Rate : 111 BPM Atrial Rate : 111 BPM P-R Int : 186 ms QRS Dur : 90 ms QT Int : 314 ms P-R-T Axes : 51 41 24 degrees QTcB Int : 427 ms Sinus tachycardia T wave abnormality, consider anterior ischemia Abnormal ECG When compared with ECG of 07-Jan-2025 09:42, Vent. rate has increased by 38 bpm Referred By: Vanesa García Electronically Signed By: RAÚL ANGULO MD
[2025-01-26 23:31] VITALS: BP 164/74; PULSE 140; PULSE 149; TEMP 40.5; O2SAT 91; O2SAT 99; BMI 20.9
--- NOTE | 2025-01-26 23:42 | ED.FEVER ---
HPI - Fever General Chief Complaint: Fever Stated Complaint: fever since 4pm from grp home Time Seen by Provider: 01/26/25 23:27 Source: EMS, old records reviewed and other (senior care records) Mode of arrival: EMS Limitations: other (Nonverbal at baseline) History of Present Illness ED Provider: Dr. Vanesa García HPI Narrative: 59-year-old male with a history of Parkinson's disease, nonverbal at baseline lives in a custodial presenting by EMS with reported fever since 4:00 p.m. this afternoon. Patient has also had a wet cough and hypoxia to 81% for EMS. 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 Also admits that a few other residents have been hospitalized recently for pneumonia as well. No reported vomiting. No reported bowel changes or urinary complaints. No changes in his medication history. He was able to take all of his nighttime medications at around 8:00 a.m. tonight. Unable to obtain further information secondary to patient's nonverbal status. Related Data Home Medications ?Medication ?Instructions ?Recorded ?Confirmed acetaminophen 325 mg tablet 650 mg PO Q6H PRN Fever Or Pain 04/01/23 12/17/23 bacitracin 500 unit/gram eye 0.25 inch ophthalmic (eye) BID 04/01/23 12/17/23 ointment wounds cholecalciferol (vitamin D3) 1,250 1,250 mcg PO WE@0900 04/01/23 12/17/23 mcg (50,000 unit) capsule clonazepam 0.5 mg tablet 0.25 mg PO BID@0800,1200 04/01/23 12/17/23 clonazepam 0.5 mg tablet 0.5 mg PO BEDTIME 04/01/23 12/17/23 divalproex 125 mg capsule,delayed 500 mg PO TID 04/01/23 01/07/25 release sprinkle (Depakote Sprinkles) felbamate 400 mg tablet 800 mg PO TID 04/01/23 01/07/25 levetiracetam 500 mg tablet 1,000 mg PO TID 04/01/23 01/07/25 levothyroxine 88 mcg tablet 88 mcg PO DAILY@0600 04/01/23 12/17/23 multivitamin with folic acid 400 1 tab PO DAILY 04/01/23 12/17/23 mcg tablet (Thera) sertraline 50 mg tablet 50 mg PO BEDTIME 04/01/23 12/17/23 simvastatin 40 mg tablet 40 mg PO BEDTIME 04/01/23 12/17/23 zinc oxide 13 % topical cream 1 appl topical TID PRN Rash 04/01/23 12/17/23 (Desitin Daily Defense) bisacodyl 10 mg rectal suppository 10 mg MO DAILY PRN Constipation 06/08/23 12/17/23 (OneLAX Bisacodyl) guaifenesin 100 mg/5 mL oral liquid 200 mg PO Q6H PRN Cough 06/08/23 12/17/23 magnesium hydroxide 400 mg/5 mL 30 ml PO Q OTHER DAY Constipation 06/08/23 12/17/23 oral suspension (Milk of Magnesia) polyethylene glycol 3350 17 17 g PO DAILY 06/08/23 12/17/23 gram/dose oral powder sodium phosphates 19 gram-7 118 ml MO DAILY PRN Constipation 06/08/23 12/17/23 gram/118 mL enema (Enema Disposable) white petrolatum-mineral oil 57.3 0.25 inch ophthalmic (eye) BEDTIME 06/08/23 12/17/23 %-42.5 % eye ointment (Refresh P.M.) aspirin 81 mg chewable tablet 81 mg PO DAILY 12/17/23 12/17/23 bacitracin 500 unit/gram topical 1 appl topical BID PRN wounds 12/17/23 12/17/23 ointment docusate sodium 50 mg/5 mL oral 100 mg PO DAILY 12/17/23 12/17/23 liquid magnesium hydroxide 400 mg/5 mL 30 ml PO DAILY PRN Constipation 12/17/23 12/17/23 oral suspension (Milk of Magnesia) midazolam 5 mg/spray (0.1 mL) 5 mg intranasal Q10M PRN Seizures 12/17/23 12/17/23 nasal spray (Nayzilam) Previous Rx's ?Medication ?Instructions ?Recorded cefuroxime axetil 500 mg tablet 500 mg PO BID #10 tabs 12/23/23 lamotrigine 25 mg tablet 50 mg (2 x 25 mg) PO BID #270 tabs 12/23/23 doxycycline monohydrate 100 mg 100 mg PO BID #14 caps 11/14/24 capsule Allergies Allergy/AdvReac Type Severity Reaction Status Date / Time erythromycin base Allergy Unknown HIVES Verified 01/26/25 23:35 (ERYTHROMYCIN BASE) gentamicin (GENTAMICIN) Allergy Unknown UNKNOWN Verified 01/26/25 23:35 Macrolide Antibiotics Allergy Unknown UNKNOWN Verified 01/26/25 23:35 (MACROLIDE ANTIBIOTICS) KETOLIDES Allergy Unknown UNKNOWN Uncoded 01/26/25 23:35 Review of Systems Review of Systems: Yes Unobtainable due to mental condition [facility] Past Medical History [facility] Narrative: Seizure disorder, Parkinson's disease, frequent aspiration pneumonia, nonverbal, lives in a custodial Source: old records reviewed and other (senior care records reviewed) Medical History Fever Epileptic seizure Depression Generalized anxiety disorder Ganglion cyst Aspiration pneumonia Parkinson disease Dysphagia Anxiety Constipation TIA (transient ischemic attack) Hyperlipidemia Glaucoma Hyperopia of left eye Proptosis Aphakia, both eyes Osteopenia Hypothyroidism Leicester-Gastaut syndrome, intractable, with status epilepticus Social History Social History Household Members: Other Household Members Other:: other residents Housing: Other Housing Other:: custodial Do you presently have visiting nurse or other home services: No Unable to assess alcohol history related to: Unknown Comment: 1:1 sitter Patient Tobacco Use Status: Never used Tobacco Smoked in Last 30 Days: No e-Cigarette/Vaping Use: Never Used Second Hand Smoke Exposure: No Use of substances other than those prescribed or required for medical reasons: No Advance Directives: Yes Advance Directives on File: Yes Advance Directives Date on File: 04/01/22 Do you have a plan to hurt others: No Plan service: No Physical Exam Exam: Exam: GENERAL: Ill-Appearing, appears uncomfortable. SKIN: Red in the face, hot to the touch, dry, no rashes noted. HEENT: Normocephalic, atraumatic, no stridor, wet mucous membranes, dentition intact, EOMI, PERRLA. NECK: Soft, supple, full ROM, midline structures nontender, no step-offs, no deformities, no lymphadenopathy. CHEST: Heart regular tachycardia, no murmurs, symmetric chest rise and fall. PULMONARY: Coarse lung sounds bilaterally, diminished at the bases, tachypnea, no wheezes. ABDOMINAL: Soft, nondistended, quiet bowel sounds in all quadrants. : Brown stool in the vault, no ulcerations noted in the sacrum or perineum, otherwise normal external genitalia. MUSCULOSKELETAL: All 4 limbs with muscle contractures, limited range of motion, no peripheral edema, neurovascularly intact distally. NEURO: Nonverbal, alert, groans in pain, all 4 limbs are contracted. Vital Signs: Vital Signs: Last Vital Signs Temp 99.1 F 01/27/25 02:42 Pulse 96 01/27/25 02:43 Resp 20 01/27/25 02:42 BP 107/36 L 01/27/25 02:43 Pulse Ox 94 01/27/25 02:42 O2 Del Method Room Air 01/27/25 02:42 O2 Flow Rate 4 01/27/25 01:23 BMI result Body Mass Index 26.8 Medications Administered Generic Name Dose Route Start Last Admin Trade Name Freq PRN Reason Stop Dose Admin Norepinephrine Bitartrate 8 mg in 250 mls @ 0 mls/hr 01/27/25 02:30 01/27/25 02:43 Levophed IVCONT 0.19 mcg/kg/min .Q0M MEETA 31.07 mls/hr Protocol Titration Per Protocol Lactated Ringer's 1,000 mls @ 100 mls/hr 01/27/25 02:30 01/27/25 02:32 Lr IVCONT 100 mls/hr .Q10H MEETA Administration Discontinued Medications Generic Name Dose Route Start Last Admin Trade Name Freq PRN Reason Stop Dose Admin Acetaminophen 1,000 mg in 100 mls @ 400 mls/hr 01/26/25 23:35 01/27/25 01:25 Ofirmev IV 01/26/25 23:49 Infused ONCE ONE Infusion Vancomycin HCl 1,000 mg/ 535 mls @ 267.5 mls/hr 01/26/25 23:35 01/27/25 00:43 Vancomycin HCl 750 mg/ Sodium IV 01/27/25 01:34 267.5 mls/hr Chloride ONCE ONE Administration Piperacillin Sod/Tazobactam 100 mls @ 200 mls/hr 01/26/25 23:35 01/27/25 01:33 Sod 4.5 gm/ Sodium Chloride IV 01/27/25 00:04 Infused ONCE ONE Infusion Lactated Ringer's 2,041.17 mls @ 2,041.17 mls/hr 01/26/25 23:40 01/27/25 00:54 Lr 30 ml/kg infuse over 1 hr (2041.17 ml) 01/27/25 00:39 Infused IV Infusion .Q1H ONE Norepinephrine Bitartrate 8 mg in 250 mls @ 0 mls/hr 01/27/25 01:45 01/27/25 02:13 Levophed IVCONT 0.05 mcg/kg/min .Q0M MEETA 6.38 mls/hr Protocol Administration Per Protocol Ondansetron HCl 4 mg 01/27/25 00:07 01/27/25 00:22 Ondansetron Hcl 4 Mg/2 Ml Vial IVPUSH 01/27/25 00:08 4 mg ONCE ONE Administration Medical Decision Making Medical Decision Making MDM Narrative: Patient presents with complaints of fever, cough. Differential diagnosis is incredibly broad but SBI, meningitis, sepsis, serious skin infection, pneumonia, or other emergent etiologies certainly considered. Less emergent diagnoses such as viral infection also considered. This patient is rather toxic appearing with hypoxia, tachycardia, fever as high as 105? rectally. 23:40 01/26/2025 (Dr. Vanesa García, D.O.) Patient was placed on non-rebreather oxygen, IV Tylenol initiated. Sepsis protocol initiated with lactic acid and blood cultures taken. Also checked a viral panel. Obvious concern would be for aspiration pneumonia given his history and recent infections in the custodial with other residents having pneumonia. With such a high fever though I worry about a viral process such as COVID-19 or influenza. Patient received a 30 cc/kg crystalloid bolus at 999 mL/hour. Starting vancomycin and Zosyn to cover for broad-spectrum organisms. Blood pressure by EMS was normal. He is not currently hypotensive. I suspect that his level of tachycardia is related to the fever. 12:21 AM 01/27/2025 (Dr. Vanesa García, D.O.) lactic acid of 2.1. As above, sepsis protocol initiated with fluid resuscitation and antibiotics administration. 1:35 AM 01/27/2025 (Dr. Vanesa García, D.O.) patient's blood pressure is now dropping into the 70s/30s. He has already received a 30 cc/kg fluid bolus. Plan for norepinephrine peripherally. We will contact the ICU. His chest x-ray is very difficult to evaluate given the contractures and overlying skull. You really can not see any upper lung guthrie. Awaiting radiology read. His white blood cell count is not elevated though he does have a leftward shift, no bandemia. 2:46 AM 01/27/2025 (Lorenza Sellers.Ricky.) patient accepted for admission in the ICU. Admitted in critical condition. Differential Diagnosis Differential Diagnoses: The differential diagnosis associated with the presentation includes (As above) Admission/Observation Consideration of admission/observation: Escalation of care including admission/observation considered Consult Healthcare Provider Management of the patient was discussed with: Visual Stylist (Medical Case Worker) Lab Data MDM Lab Attestation statement: I reviewed the patient's lab results. 01/26/25 23:44 01/26/25 23:45 Labs: Lab Results 01/26/25 01/26/25 01/27/25 Range/Units 23:44 23:45 00:13 WBC 8.0 (4.8-10.8) X10*3/uL RBC 4.31 L (4.60-5.80) X10*6/uL Hgb 12.9 L (14.0-18.0) g/dl Hct 36.2 L (42.0-52.0) % MCV 84.0 (80.0-98.0) fL MCH 29.9 (27.0-33.0) pg MCHC 35.6 (31.0-36.0) g/dl RDW 13.3 (11.0-16.0) % Plt Count 234 (160-400) X10*3/uL MPV 9.3 L (9.4-12.4) fL Immature Gran % (Auto) 0.6 H (0.0-0.4) % Neut % (Auto) 75.5 H (45-73) % Lymph % (Auto) 11.6 L (20-40) % [place] % (Auto) 11.5 H (2-11) % Eos % (Auto) 0.6 (0-4) % Baso % (Auto) 0.2 (0-2) % Lymph # (Auto) 0.9 L (1.2-4.9) X10*3/uL [place] # (Auto) 0.9 (0.1-1.2) X10*3/uL Eos # (Auto) 0.1 (0.0-0.4) X10*3/uL Baso # (Auto) 0.0 (0.0-0.2) X10*3/uL Abs Immat Gran (auto) 0.05 H (0.00-0.03) X10*3/uL Absolute Neuts (auto) 6.1 (2.0-8.3) x10*3/uL Absolute Nucleated RBC 0.000 (0.0-0.012) X10*3/uL Nucleated RBC % (auto) 0.0 (0.0-0.2) /100WBC VBG pH 7.36 (7.32-7.43) VBG pCO2 53 mmHg VBG pO2 59 mmHg VBG HCO3 30 H (22-26) mmol/L VBG O2 Saturation 86.0 % VBG Base Excess 4.1 mmol/L Sodium 134 L (135-145) mmol/L Potassium 4.3 (3.3-5.1) mmol/L Chloride 97 (96-108) mmol/L Carbon Dioxide 26 (22-29) mmol/L Anion Gap 15 (12-20) BUN 11 (9-16) mg/dL Creatinine 0.75 (0.5-1.4) mg/dL Estim Creat Clear Calc 102.0 Estimated GFR > 60 Random Glucose 141 H (60-115) mg/dL Lactic Acid 2.1 H* (0.5-2.0) mmol/L Calcium 9.0 (8.4-10.2) mg/dL Total Bilirubin 0.2 (0.0-1.0) mg/dL AST 25 (5-37) U/L ALT 10 (0-40) U/L Alkaline Phosphatase 51 (39-117) U/L Troponin I High Sens 6.0 (<3.5-35.0) ng/L Total Protein 7.5 (6.5-8.0) g/dL Albumin 4.3 (3.5-5.0) g/dL Valproic Acid 114.9 H* (50.0-100.0) mcg/mL ABG Data Attestation ABG: I personally reviewed and interpreted this ABG as follows: (VBG) Interpretation: No significant acidosis, hypercapnia or hypoxia. Independent Interpretation I performed an independent interpretation of an: EKG Interpretation: My independent interpretation of the ECG reveals normal sinus tachycardia with rate of 111, normal axis, normal intervals, no ST elevations or depressions to suggest ischemic changes, relatively unchanged from previous on 01/07/2025. Radiology Impression Discussion of test interpretation with radiology: I have reviewed the radiologist's reading. Radiologist Impression: 1 view chest x-ray Comparison: CR - XR CHEST 1V - 11/14/24 16:33 EDT Findings: Bibasilar patchy opacities, left worse than right. Right basilar atelectasis with small effusion. No pneumothorax. Similar prominent/enlarged cardiac silhouette. No acute fracture. IMPRESSION: 1. Bibasilar patchy opacities, left worse than right. Correlation for pneumonia or aspiration advised. 2. Right basilar atelectasis with small effusion. This document has been electronically signed by: Daniel Cedillo MD on 01/27/2025 01:36:32 Independent Historian Clinical information obtained from an independent historian. 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 Time includes: direct patient care, patient reassessment, coordination of patient care, interpretation of data (laboratory data, pulse oximetry, arterial blood gases and chest xrays), review of patient's medical records, medical consultation and documentation of patient care. Procedures excluded from critical care time: central intravenous line placement and electrocardiography. Discharge Plan Discharge Clinical Impression: Septic shock, Aspiration pneumonia of both lungs, Acute hypoxemic respiratory failure Patient Disposition: Admitted As Inpatient Print Language: Setswana
[2025-01-26 23:56] LABS: MANUAL DIFF FLAG NO
[2025-01-26 23:58] LABS: Hematocrit 36.2 % (42.0-52.0); Hemoglobin 12.9 g/dl (14.0-18.0); Imm Gran Abs Auto 0.05 X10*3/uL (0.00-0.03); Imm Gran Pct Auto 0.6 % (0.0-0.4); Lymphocytes Absolute Auto 0.9 X10*3/uL (1.2-4.9); Mean Corpuscular HGB Conc 35.6 g/dl (31.0-36.0); Mean Corpuscular Hemoglobin 29.9 pg (27.0-33.0); Mean Corpuscular Volume 84.0 fL (80.0-98.0); NRBC Abs Auto 0.000 X10*3/uL (0.0-0.012); NRBC Pct Auto 0.0 /100WBC (0.0-0.2); Platelet Count 234 X10*3/uL (160-400); Red Blood Count 4.31 X10*6/uL (4.60-5.80); White Blood Count 8.0 X10*3/uL (4.8-10.8)
[2025-01-27] VITALS (53 sets, daily range): BP systolic 67–161; BP diastolic 22–77; PULSE 70–125; RESP 13–33; TEMP 36.9–38.5; O2SAT 83–98; BMI 26.8
[2025-01-27 00:12] LABS: Alanine Aminotransferase 10 U/L (0-40); Albumin Level 4.3 g/dL (3.5-5.0); Alkaline Phosphatase 51 U/L (39-117); Anion Gap 15 (12-20); Aspartate Amino Transferase 25 U/L (5-37); Blood Urea Nitrogen 11 mg/dL (9-16); Calcium 9.0 mg/dL (8.4-10.2); Carbon Dioxide 26 mmol/L (22-29); Chloride 97 mmol/L (96-108); Creatinine Clr Calc Pharmacy 102.0; Estimated Glomerular Filt Rate > 60; Potassium 4.3 mmol/L (3.3-5.1); Sodium 134 mmol/L (135-145); Total Protein 7.5 g/dL (6.5-8.0)
[2025-01-27 00:17] LABS: VBG HCO3 30 mmol/L (22-26); VBG O2 % Saturation 86.0 %
[2025-01-27 00:18] LABS: Troponin-I High Sensitivity 6.0 ng/L (<3.5-35.0)
[2025-01-27 00:19] LABS: Venous Blood Gas Refer to POC result
[2025-01-27] MEDS: vancomycin HCL 1,000 MG, vancomycin HCL 750 MG in 0.9 % Sodium Chloride 500 ML 267.5 MG IV (00:43)
--- NOTE | 2025-01-27 01:42 | PC.NURSE ---
When pt came into ED from EMS he had no line (ems stated he was very difficult and they were unable to get a line on him). Since he was a presumed sepsis alert and was initially assigned a ruiz bed- we had to switch rooms with another pt. Once we moved him into 13, pt has contracture in all extremities making him a 3 assist. However he is very noncompliant and would also yank off nonrebreather/ nasal canula. To get 2 iv lines n him one RN and one tech had to hold down his arms. After IVs were placed, pt began to throw up causing RNs to have to suction patient. The episodes of vomit w/ suction happened about 3x. RT was also called to assist. RN had to ask provider to put a stat order of zofran. After RNs had to redress pt and remove bedding as he had throw up everywhere. We also grabbed ice packs to place on pts body to cool him down. Pt yanked off Nasal canula again so pt had to be repositioned and tubing had to be taped to face so he would not yank it off. Any delay in care was d/t the multiple interventions that took place unexpectedly during care for this specific pt.
[2025-01-27 01:55] LABS: Reflex Lactate? Lactic Acid Added
--- NOTE | 2025-01-27 02:28 | PC.NURSE ---
per ICU provider at bedside, provider gave verbal orders RN and transmitter engineer in charge john to titrate levophed to 0.15 mcg.
[2025-01-27] MEDS: Lactated Ringers 1,000 ML 100 ML IVCONT ×3 (02:32→16:16)
[2025-01-27] MEDS: Albumin Human 25 % 100 ML 133 ML IV ×2 (03:06→04:05)
[2025-01-27 03:35] LABS: Hematocrit 33.8 % (42.0-52.0); Hemoglobin 11.9 g/dl (14.0-18.0); Imm Gran Abs Auto 0.06 X10*3/uL (0.00-0.03); Imm Gran Pct Auto 0.5 % (0.0-0.4); Lymphocytes Absolute Auto 0.9 X10*3/uL (1.2-4.9); MANUAL DIFF FLAG SCAN; Mean Corpuscular HGB Conc 35.2 g/dl (31.0-36.0); Mean Corpuscular Hemoglobin 29.5 pg (27.0-33.0); Mean Corpuscular Volume 83.9 fL (80.0-98.0); NRBC Abs Auto 0.000 X10*3/uL (0.0-0.012); NRBC Pct Auto 0.0 /100WBC (0.0-0.2); Platelet Count 202 X10*3/uL (160-400); Red Blood Count 4.03 X10*6/uL (4.60-5.80); SCAN SMEAR FLAG 1; White Blood Count 12.2 X10*3/uL (4.8-10.8); ~Lactic Acid-LAB USE ONLY 1.6 mmol/L (0.5-2.0)
[2025-01-27 03:55] LABS: Alanine Aminotransferase < 6 U/L (0-40); Albumin Level 3.7 g/dL (3.5-5.0); Alkaline Phosphatase 46 U/L (39-117); Anion Gap 16 (12-20); Aspartate Amino Transferase 22 U/L (5-37); Blood Urea Nitrogen 10 mg/dL (9-16); Calcium 8.4 mg/dL (8.4-10.2); Carbon Dioxide 23 mmol/L (22-29); Chloride 98 mmol/L (96-108); Creatinine Clr Calc Pharmacy 154.0; Estimated Glomerular Filt Rate > 60; Magnesium 1.5 mg/dL (1.6-2.6); Potassium 3.4 mmol/L (3.3-5.1); Sodium 134 mmol/L (135-145); Total Protein 6.5 g/dL (6.5-8.0)
--- NOTE | 2025-01-27 04:18 | PM.CCHP ---
History of Present Illness Date of Service: 01/27/25 Attending physician on admission: Gavino Hoffman Chief Complaint: Acute septic shock, acute hypoxic respiratory failure; aspiration PNA 59-year-old disable patient who comes from a care home and has underlying history of Parkinson's disease, who is nonverbal, bed-bound and has underlying history of seizures, depression, anxiety, aspiration pneumonia, constipation, TIA, hyperlipidemia, proptosis, hypothyroidism, 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 Patient presented to the emergency room with his personnel pattern keeper at bedside who reports the patient has been sick for about a day with a what appeared to be a cough for which she was given Robitussin.? Although he is nonverbal he is usually alert which has not been the case this time, throughout yesterday the patient had a wet cough and EMS noted the patient was hypoxic with 81% during their initial assessment, reportedly the patient had been hospitalized with recent pneumonia.? The patient was transported to the ER on supplemental oxygen, evaluation showed the patient had a fever of 105 rectally was tachycardic and hypoxic.? His workup did not show a white count, no renal failure or electrolyte abnormality.? His lactic acid however was 2.1. ?IV Tylenol was given along with 30 mL/kilos of IV fluids and he was also covered with vancomycin and Zosyn.? Respiratory panel was negative.? Even though his blood pressure was initially normal, it had dropped to 70/30 despite of IV fluids. ?Chest x-ray shows bilateral patchy pneumonia worse on the left lung. ?The patient was started on Levophed.? The patient is breathing on his own, nonverbal during my encounter.? The patient will be transferred to the ICU for further care.? custodial chart reviewed and the patient is full code, his guardian is Ms. Clementine Lopez. ? Review of Systems Review of Systems: Yes Unobtainable due to mental status PMFSH Past Medical History Medical History Fever Epileptic seizure Depression Generalized anxiety disorder Ganglion cyst Aspiration pneumonia Parkinson disease Dysphagia Anxiety Constipation TIA (transient ischemic attack) Hyperlipidemia Glaucoma Hyperopia of left eye Proptosis Aphakia, both eyes Osteopenia Hypothyroidism [place]-Gastaut syndrome, intractable, with status epilepticus Social History Social History Household Members: Other Household Members Other:: care home members Housing: Other Housing Other:: care home Do you presently have visiting nurse or other home services: No Unable to assess alcohol history related to: Unknown Comment: group fitness instructor at bedside Patient Tobacco Use Status: Never used Tobacco Smoked in Last 30 Days: No e-Cigarette/Vaping Use: Never Used Second Hand Smoke Exposure: No Use of substances other than those prescribed or required for medical reasons: No Currently Displaying Signs/Symptoms of Drug Intoxication Withdrawal: No Advance Directives: Yes Advance Directives on File: Yes Advance Directives Date on File: 04/01/22 Do you have a plan to hurt others: No Plan Recently lost weight without trying: No Eating poorly because of decreased appetite: No Nutrition Risks: No Nutritional Risk service: No Meds Allergies Allergy/AdvReac Type Severity Reaction Status Date / Time erythromycin base Allergy Unknown HIVES Verified 01/26/25 23:35 (ERYTHROMYCIN BASE) gentamicin (GENTAMICIN) Allergy Unknown UNKNOWN Verified 01/26/25 23:35 Macrolide Antibiotics Allergy Unknown UNKNOWN Verified 01/26/25 23:35 (MACROLIDE ANTIBIOTICS) KETOLIDES Allergy Unknown UNKNOWN Uncoded 01/26/25 23:35 Active Medications: Current Medications Enoxaparin Sodium (Enoxaparin Sodium 40 Mg/0.4 Ml Syringe) 40 mg SUBCUT Q24H MEETA Norepinephrine Bitartrate (Levophed) 8 mg in 250 mls @ 0 mls/hr IVCONT .Q0M MEETA; Protocol Last Titration: 01/27/25 03:28 Dose: 0.27 mcg/kg/min, 44.15 mls/hr Lactated Ringer's (Lr) 1,000 mls @ 100 mls/hr IVCONT .Q10H MEETA Last Admin: 01/27/25 02:32 Dose: 100 mls/hr Levetiracetam (Keppra) 500 mg in 100 mls @ 400 mls/hr IV Q12H MEETA Vancomycin HCl 1,000 mg/ (Sodium Chloride) 270 mls @ 270 mls/hr IV Q12H MEETA Piperacillin Sod/Tazobactam (Sod 3.375 gm/ Sodium Chloride) 50 mls @ 100 mls/hr IV Q6H MEETA Magnesium Sulfate (Magnesium Sulfate/H2o) 2 gm in 50 mls @ 25 mls/hr IV ONCE ONE Stop: 01/27/25 06:06 Potassium Phosphate (Kphos) 15 mmol in 250 mls @ 62.5 mls/hr IV ONCE ONE Stop: 01/27/25 08:06 Pharmacy Consult (Consult Rx Vancomycin Dosing) 1 each MISCELLANE DAILY PRN PRN Reason: Consult order Pharmacy Consult (Consult Rx Vancomycin Dosing) 1 each MISCELLANE DAILY PRN PRN Reason: Consult order Home Medications ?Medication ?Instructions ?Recorded ?Confirmed ?Last Taken ?Type acetaminophen 325 mg tablet 650 mg PO Q6H PRN Fever Or Pain 04/01/23 01/27/25 12/16/23 History cholecalciferol (vitamin D3) 1,250 1,250 mcg PO WE@0900 04/01/23 01/27/25 01/20/25 History mcg (50,000 unit) capsule clonazepam 0.5 mg tablet 0.25 mg PO BID@0800,1200 04/01/23 01/27/25 01/26/25 History clonazepam 0.5 mg tablet 0.5 mg PO BEDTIME 04/01/23 01/27/25 01/26/25 History divalproex 125 mg capsule,delayed 500 mg PO TID 04/01/23 01/27/25 01/26/25 History release sprinkle (Depakote Sprinkles) felbamate 400 mg tablet 800 mg PO TID 04/01/23 01/27/25 01/26/25 History levetiracetam 500 mg tablet 1,000 mg PO TID 04/01/23 01/27/25 01/26/25 History levothyroxine 88 mcg tablet 88 mcg PO DAILY@0600 04/01/23 01/27/25 01/26/25 History sertraline 50 mg tablet 50 mg PO BEDTIME 04/01/23 01/27/25 01/26/25 History simvastatin 40 mg tablet 40 mg PO BEDTIME 04/01/23 01/27/25 01/26/25 History zinc oxide 13 % topical cream 1 appl topical TID PRN Rash 04/01/23 01/27/25 Unknown History (Desitin Daily Defense) bisacodyl 10 mg rectal suppository 10 mg KS DAILY PRN Constipation 06/08/23 01/27/25 Unknown History (OneLAX Bisacodyl) guaifenesin 100 mg/5 mL oral liquid 200 mg PO Q6H PRN Cough 06/08/23 01/27/25 Unknown History magnesium hydroxide 400 mg/5 mL 30 ml PO Q OTHER DAY Constipation 06/08/23 01/27/25 12/16/23 History oral suspension (Milk of Magnesia) polyethylene glycol 3350 17 17 g PO DAILY 06/08/23 01/27/25 01/26/25 History gram/dose oral powder sodium phosphates 19 gram-7 118 ml KS DAILY PRN Constipation 06/08/23 01/27/25 Unknown History gram/118 mL enema (Enema Disposable) aspirin 81 mg chewable tablet 81 mg PO DAILY@0800 12/17/23 01/27/25 01/26/25 History bacitracin 500 unit/gram topical 1 appl topical BID PRN wounds 12/17/23 01/27/25 Unknown History ointment docusate sodium 50 mg/5 mL oral 100 mg PO DAILY@0800 12/17/23 01/27/25 01/26/25 History liquid midazolam 5 mg/spray (0.1 mL) 5 mg intranasal Q10M PRN Seizures 12/17/23 01/27/25 01/26/25 History nasal spray (Nayzilam) therapeutic multivitamin 1 tab PO DAILY 01/27/25 01/27/25 01/26/25 History white petrolatum-mineral oil 57.3 1 appl ophthalmic (eye) BEDTIME 01/27/25 01/27/25 01/26/25 History %-42.5 % eye ointment (Refresh P.M.) Physical Exam Exam: Exam: Initial sepsis exam done at 02:30 a.m. General:? Nonverbal, not alert, unable to determine orientation.? He moves around on his own, moans and groans, Skin:? Thin, Intact, no lesions, edema, erythema, clubbing or cyanosis.? No ulcers. HEENT:? Head is normocephalic, atraumatic, pupils equal. Buccal mucosa is dry Neck is supple without lymphadenopathy. Cardiac:? Tachycardic 110 beats per minute, no murmurs, rubs, gallops. Pulmonary:? Diminished lung sounds bilaterally with diffuse inspiratory and expiratory rhonchi of the bilateral lung guthrie anteriorly and posteriorly mostly of the left lower lung. Abdomen:? Protuberant, positive bowel sounds in all 4 quadrants.? Soft, nontender, no rebound or guarding.? Musculoskeletal:? All 4 upper extremities are contracted, atrophied.? Attempted passive range of motion at the major joints was not possible given significant contractures and cogwheeling.? There is no leg edema, no asymmetry. Neurologic:? As above.? Otherwise unable to further assess. Vascular:? 2+ pulses upper and lower extremities distally.? Less than 2nd capillary refill of fingers and toes bilaterally upper and lower extremities Vital Signs: Vital Signs: Last Vital Signs Temp 99.3 F 01/27/25 04:00 Pulse 97 01/27/25 04:00 Resp 30 H 01/27/25 04:00 BP 146/62 H 01/27/25 04:00 Pulse Ox 90 L 01/27/25 04:00 O2 Del Method Room Air 01/27/25 04:00 O2 Flow Rate 4 01/27/25 01:23 BMI result Body Mass Index 26.8 Results Labs 01/27/25 03:05 01/27/25 03:05 Labs: Laboratory Results - last 24 hr 01/26/25 01/26/25 01/27/25 23:44 23:45 00:13 MCV 84.0 MCH 29.9 MCHC 35.6 RDW 13.3 Plt Count 234 MPV 9.3 L Immature Gran % (Auto) 0.6 H Neut % (Auto) 75.5 H Lymph % (Auto) 11.6 L [place] % (Auto) 11.5 H Eos % (Auto) 0.6 Baso % (Auto) 0.2 Lymph # (Auto) 0.9 L [place] # (Auto) 0.9 Eos # (Auto) 0.1 Baso # (Auto) 0.0 Abs Immat Gran (auto) 0.05 H Absolute Neuts (auto) 6.1 Absolute Nucleated RBC 0.000 Nucleated RBC % (auto) 0.0 Smear Tech's Comments Hold Purple Top VBG pH 7.36 VBG pCO2 53 VBG pO2 59 VBG HCO3 30 H VBG O2 Saturation 86.0 VBG Base Excess 4.1 Anion Gap 15 Estim Creat Clear Calc 102.0 Estimated GFR > 60 Random Glucose 141 H Lactic Acid 2.1 H* Lactic Acid F/U @ 2Hr Calcium 9.0 Phosphorus Magnesium Total Bilirubin 0.2 AST 25 ALT 10 Alkaline Phosphatase 51 Total Protein 7.5 Albumin 4.3 Valproic Acid 114.9 H* 01/27/25 03:05 MCV 83.9 MCH 29.5 MCHC 35.2 RDW 13.2 Plt Count 202 MPV 9.4 Immature Gran % (Auto) 0.5 H Neut % (Auto) 75.3 H Lymph % (Auto) 7.4 L [place] % (Auto) 16.4 H Eos % (Auto) 0.2 Baso % (Auto) 0.2 Lymph # (Auto) 0.9 L [place] # (Auto) 2.0 H Eos # (Auto) 0.0 Baso # (Auto) 0.0 Abs Immat Gran (auto) 0.06 H Absolute Neuts (auto) 9.2 H Absolute Nucleated RBC 0.000 Nucleated RBC % (auto) 0.0 Smear Tech's Comments VERIFIED Hold Purple Top SEE NOTE VBG pH VBG pCO2 VBG pO2 VBG HCO3 VBG O2 Saturation VBG Base Excess Anion Gap 16 Estim Creat Clear Calc 154.0 Estimated GFR > 60 Random Glucose 149 H Lactic Acid Lactic Acid F/U @ 2Hr 1.6 Calcium 8.4 D Phosphorus 2.5 L Magnesium 1.5 L Total Bilirubin 0.2 AST 22 ALT < 6 Alkaline Phosphatase 46 Total Protein 6.5 Albumin 3.7 Valproic Acid Assessment and Plan (1) Septic shock: Status: Acute Plan ASSESSMENT : 1. Acute septic shock 2. Acute hypoxic respiratory failure in the setting of Bilateral aspiration pneumonitis 3. Acute lactic and metabolic acidosis due to the above 4. Acute metabolic /chemical encephalopathy 5. Clinical dehydration 6. Acute mild hyponatremia 7. Acute valproic acid toxicity perhaps contributing to 4.? Without evidence of liver toxicity. 8. History of seizures 9. Acute hypomagnesemia 10. Acute hypophosphatemia CODE STATUS:? FULL THE PATIENT IS A [facility]DEN OF THE [facility] PLAN OF CARE: The patient will be admitted to the ICU, monitor vital signs, I's and O's, he received 30 mL/kilos without improvement of his blood pressure, patient has been placed on Levophed which has been titrated manually by me to obtain a map between 65 and 70. ?Broad-spectrum antibiotics with Zosyn and vancomycin as he does come from a group facility. ?Repeat lactic acid, aspiration precautions, continue with slow IV fluids, recheck laboratories in the morning including valproic acid level.? I do not think it is necessary to contact poison control at this point as it will not change our management (the patient can not receive activated charcoal, there is no renal or liver compromise based on laboratories).? Continue Keppra.? Keep him NPO. GI PROPHYLAXIS:? IV PPI DVT PROPHYLAXIS:? Lovenox subQ Follow-up focused sepsis exam done at 04:30 a.m.?? On Levophed, remains hypotensive.? Lactic acid improved. General:? Nonverbal, not alert, unable to determine orientation.? He moves around on his own, moans and groans, Skin:? Thin, Intact, no lesions, edema, erythema, clubbing or cyanosis.? No ulcers. Cardiac:? Tachycardic 110 beats per minute, no murmurs, rubs, gallops. Pulmonary:? Diminished lung sounds bilaterally with diffuse inspiratory and expiratory rhonchi of the bilateral lung guthrie anteriorly and posteriorly mostly of the left lower lung. Vascular:? 2+ pulses upper and lower extremities distally.? Less than 2nd capillary refill of fingers and toes bilaterally upper and lower extremities Repeat laboratories show improved lactic acid, borderline low potassium, low phosphorus and magnesium, electrolytes will be repleted, continue with pressor support.? The patient may need a central line which will be done emergently and based on medical needs as I was not able to communicate with his power of city attorney. Clementine Lopez This patient counter and care had a high probability of a clinically significant, sudden, or life threatening deterioration of this patient's condition which required my full and direct attention, intervention and personal management. Critical care time used for critical evaluation of this patient, diagnosis, treatment and coordination of care, review her records and documentation TOTAL CRITICAL CARE TIME? 90? MIN . discussion and coordination with consultants, completely separate from any procedures performed. Patient's care was discussed in detail with Dr. Hoffman who is aware of all the above as well as the plan of care for this patient
[2025-01-27] MEDS: Potassium Phosphate/NS 15 MMOL/250 ML PLAST..BAG 62.5 MMOL IV (04:35)
[2025-01-27] MEDS: Magnesium Sulfate/H2O 2 GM/50 ML PIGGYBACK IV (04:35)
[2025-01-27 05:44] LABS: VBG HCO3 25 mmol/L (22-26); VBG O2 % Saturation 85.0 %
[2025-01-27 05:47] LABS: Venous Blood Gas Refer to POC result
--- NOTE | 2025-01-27 06:37 | HO.SKINPHOTO ---
Location:buttocks Category: Stage: Length: Width: Depth: cm
--- NOTE | 2025-01-27 07:42 | PC.ADMIT ---
Pt arrived to unit at approx 0330 via stretcher from ED. Pt is accompanied by [facility] staff member John. John provided?information for admission, as pt is non verbal at baseline. Pt agitated and? resistive to care. Pt unable to track movement and is legally blind. Pt was noted to be gazing and fluttering eyes. Per John, this is his behavior when he is having?seizures. CADEN Mcconnell was notified that pt was having absence seizures. No new orders at this?time. Pressure injury?noted to buttocks, wound care consult placed, see picture in chart.? LR running at 100ml/hr per MAR. Levophed titrated per AUG.? Report given to oncoming RN at 0700.?
[2025-01-27] MEDS: levETIRAcetam in NaCl (iso-os) 500 MG/100 ML PIGGYBACK 400 MG IV ×2 (07:50→19:58)
[2025-01-27] MEDS: 0.9 % Sodium Chloride Flush 3 ML SYRINGE IVFLUSH ×2 (07:51→16:17)
--- NOTE | 2025-01-27 09:05 | PHA.MEDREC ---
Addendum entered by Luis Szymanski RPh 01/27/25 11:51: (Med list from [facility] was updated 12/31/24) MED REC WAS REVIEWED BY [facility] Original Note: Pharmacy Consult ? Medication Reconciliation Pharmacy has completed the medication reconciliation. Utilized list from [facility] to confirm med list.
[2025-01-27 09:45] LABS: Chlamydia pneumoniae PCR Not Detected (Not Detect.); Coronavirus 229E PCR Not Detected (Not Detect.); Coronavirus HKU1 PCR Not Detected (Not Detect.); Coronavirus NL63 PCR Not Detected (Not Detect.); Coronavirus OC43 PCR Not Detected (Not Detect.); RSV PCR Not Detected (Not Detect.); Rhino/Enterovirus PCR Detected (Not Detect.)
[2025-01-27 09:52] LABS: Influenza A H1 PCR Not Detected (Not Detect.); Influenza A H1-2009 PCR Not Detected (Not Detect.); Influenza A H3 PCR Not Detected (Not Detect.); SARS-CoV-2 PCR Not Detected (Not Detect.)
--- NOTE | 2025-01-27 10:05 | MHC.CM.PN ---
CM MET WITH [facility] AT BEDSIDE. PT RESIDES IN [facility] AND IS DEPENDENT WITH ALL ASPECTS OF CARE. W/C/BEDBOUND AT BASELINE WITH EXTREMITY CONTRACTURES. NO OUTSIDE SERVICES. + GUARDIANSHIP ON FILE. (GUARDIAN KARAN PINEDO [phone]) PCP RAYMUNDO SALDANA DP: RETURN TO [facility] VIA [facility] VS BLS. CM WILL CONTINUE TO FOLLOW FOR ANY CHANGES TO DC PLAN/NEEDS.
[2025-01-27] MEDS: Albumin Human 25 % 100 ML 133.33 ML IV (16:16)
[2025-01-27] MEDS: Valproic Acid (as Sodium Salt) 500 MG in Dextrose 5 % 50 ML 55 MG IV ×2 (16:17→21:26)
[2025-01-27] MEDS: Albumin Human 25 % 100 ML IV (17:26)
--- NOTE | 2025-01-27 19:17 | PC.NURSE ---
Assumed care 0700- Patient resistive to care. O2 sats between 82-93% throughout day. Unable to keep O2 on. Patient pulls at lines. mold worker at bed. Receiving IV abx. Titrated off Levophed. Albumin given. On LR @ 100ml/hr. +Rhino virus, on droplet precautions. Condom catheter, good urine output. NPO at this time. Frequent oral care, suction. clinical research monitor, sinus rhythm sinus tachycardia. See flowsheet for further assessment documentation.
[2025-01-28] VITALS (27 sets, daily range): BP systolic 84–144; BP diastolic 39–73; PULSE 67–92; RESP 14–39; TEMP 36.2–37.4; O2SAT 85–100; BMI 27.5
[2025-01-28] MEDS: 0.9 % Sodium Chloride Flush 3 ML SYRINGE IVFLUSH ×4 (00:05→23:54)
[2025-01-28] MEDS: Albumin Human 25 % 100 ML 133.33 ML IV ×2 (00:35→01:29)
[2025-01-28] MEDS: Lactated Ringers 1,000 ML 100 ML IVCONT ×2 (01:44→11:45)
[2025-01-28] MEDS: Albuterol/Iprat 2.5/0.5MG 3 ML AMPUL.NEB INHALE ×2 (03:33→19:51)
[2025-01-28 04:28] LABS: VBG HCO3 34 mmol/L (22-26); VBG O2 % Saturation 85.0 %
[2025-01-28 04:37] LABS: Venous Blood Gas Refer to POC result
[2025-01-28 04:40] LABS: MANUAL DIFF FLAG NO
[2025-01-28 04:43] LABS: Hematocrit 27.0 % (42.0-52.0); Hemoglobin 9.3 g/dl (14.0-18.0); Imm Gran Abs Auto 0.02 X10*3/uL (0.00-0.03); Imm Gran Pct Auto 0.4 % (0.0-0.4); Lymphocytes Absolute Auto 0.9 X10*3/uL (1.2-4.9); Mean Corpuscular HGB Conc 34.4 g/dl (31.0-36.0); Mean Corpuscular Hemoglobin 29.5 pg (27.0-33.0); Mean Corpuscular Volume 85.7 fL (80.0-98.0); NRBC Abs Auto 0.000 X10*3/uL (0.0-0.012); NRBC Pct Auto 0.0 /100WBC (0.0-0.2); Platelet Count 142 X10*3/uL (160-400); Red Blood Count 3.15 X10*6/uL (4.60-5.80); White Blood Count 5.5 X10*3/uL (4.8-10.8)
[2025-01-28 05:01] LABS: Alanine Aminotransferase 13 U/L (0-40); Albumin Level 4.7 g/dL (3.5-5.0); Alkaline Phosphatase 27 U/L (39-117); Anion Gap 14 (12-20); Aspartate Amino Transferase 26 U/L (5-37); Blood Urea Nitrogen 8 mg/dL (9-16); Calcium 9.1 mg/dL (8.4-10.2); Carbon Dioxide 30 mmol/L (22-29); Chloride 100 mmol/L (96-108); Creatinine Clr Calc Pharmacy 172.8; Estimated Glomerular Filt Rate > 60; Magnesium 1.9 mg/dL (1.6-2.6); Potassium 3.2 mmol/L (3.3-5.1); Sodium 141 mmol/L (135-145); Total Protein 6.6 g/dL (6.5-8.0)
[2025-01-28] MEDS: Potassium Chloride/H20 10 MEQ/100 ML PIGGYBACK 100 MEQ IV ×4 (06:23→09:49)
--- NOTE | 2025-01-28 07:30 | PC.NURSE ---
Critical Care Nursing Note? Assumed care of the patient at 1900. The patient nonverbal and unable to follow commands. Oxygen saturation in the mid 80?s on room air, patient noncompliant with oxygen delivery devices. ? Patient placed on 5l NC and bilateral wrist restraints in place.? At 0030 patient with low blood pressures, CADEN Gale notified, order placed for 2 bags of albumin.? At 0250 patient with decreased oxygen saturation and wheezes, placed on oxymixer at 8L, Emelina Mcconnell, notified. Duoneb ordered and administered placed on 10L oxymizer. At approximately 0655 patient with seizure activity, provider notified, no new orders. Report given to oncoming shift.
[2025-01-28] MEDS: levETIRAcetam in NaCl (iso-os) 500 MG/100 ML PIGGYBACK 400 MG IV ×2 (08:14→20:03)
--- NOTE | 2025-01-28 08:53 | PM.CCPN ---
Subjective Subjective Date of Service: 01/28/25 Interval History: Off Levophed support since yesterday morning Critical Care Time (minutes): 35 Physical Exam Vital Signs: Vital Signs: Last Vital Signs Temp 97.2 F 01/28/25 08:00 Pulse 79 01/28/25 08:00 Resp 19 01/28/25 08:00 BP 132/73 01/28/25 08:00 Pulse Ox 92 01/28/25 08:00 O2 Del Method Oxymask 01/28/25 08:00 O2 Flow Rate 14 01/28/25 08:00 BMI result Body Mass Index 27.5 General: Elderly male with significant chronic deformities, chronic illness Nutritional Appearance: well nourished and overweight Eyes: appearance normal, both eyes and all related structures; Alignment and Position: alignment normal and position normal Neck: No lymphadenopathy, no thyromegaly Resp: bilateral air entry equal, bilateral crackles heard Cardio: Regular rate, regular rhythm; Heart sounds: S1 normal heart sound present and S2 normal heart sound present GI: soft, nontender, no guarding, no hepatosplenomegaly : bladder normal to inspection, bladder normal to palpation, no renal angle tenderness Skin: no rashes or lesions noted and elasticity normal Neuro: Chronic neurological deformities Objective Data Labs 01/28/25 04:19 01/28/25 04:19 Labs: Laboratory Results - last 24 hr 01/27/25 01/28/25 01/28/25 04:00 04:19 04:23 WBC 5.5 RBC 3.15 L D Hgb 9.3 L D Hct 27.0 L D MCV 85.7 MCH 29.5 MCHC 34.4 RDW 13.5 Plt Count 142 L D MPV 9.4 Immature Gran % (Auto) 0.4 Neut % (Auto) 73.2 H Lymph % (Auto) 16.7 L Tucker % (Auto) 9.1 Eos % (Auto) 0.2 Baso % (Auto) 0.4 Lymph # (Auto) 0.9 L Tucker # (Auto) 0.5 Eos # (Auto) 0.0 Baso # (Auto) 0.0 Abs Immat Gran (auto) 0.02 Absolute Neuts (auto) 4.0 Absolute Nucleated RBC 0.000 Nucleated RBC % (auto) 0.0 VBG pH 7.43 VBG pCO2 51 VBG pO2 54 VBG HCO3 34 H VBG O2 Saturation 85.0 VBG Base Excess 9.2 Sodium 141 Potassium 3.2 L Chloride 100 Carbon Dioxide 30 H Anion Gap 14 BUN 8 L Creatinine 0.49 L Estim Creat Clear Calc 172.8 Estimated GFR > 60 Random Glucose 89 Calcium 9.1 D Phosphorus 3.0 Magnesium 1.9 Total Bilirubin 0.5 AST 26 ALT 13 Alkaline Phosphatase 27 L Total Protein 6.6 Albumin 4.7 Respiratory Panel [place] See Note Adenovirus (Rapid PCR) Not Detected B.pert (TEM-PCR) Not Detected B.parapertussis DNA PCR Not Detected C. pneumoniae DNA (PCR) Not Detected Coronavirus OC43 (PCR) Not Detected Coronavirus HKU1 (PCR) Not Detected Coronavirus 229E (PCR) Not Detected Coronavirus NL63 (PCR) Not Detected Human Metapneumovir PCR Not Detected Influenza A (RT-PCR) Not Detected Influenza A (H1) PCR Not Detected Influ A (H1/09) PCR Not Detected Influenza A (H3) PCR Not Detected Influenza B (RT-PCR) Not Detected M. pneumoniae (PCR) Not Detected Parainfluenza 1 (PCR) Not Detected Parainfluenza 2 (PCR) Not Detected Parainfluenza 3 (PCR) Not Detected Parainfluenza 4 (PCR) Not Detected RSV (PCR) Not Detected Entero/Rhino (PCR) Detected A SARS-CoV-2 RNA (RT-PCR) Not Detected Microbiology Microbiology Results: Microbiology 01/27/25 00:00 Blood - Venous Blood Culture - Preliminary No growth after 24 hours. 01/26/25 23:44 Blood - Venous Blood Culture - Preliminary No growth after 24 hours. Progress Note: A&P Assessment and plan (1) Acute hyponatremia: Status: Acute (2) Septic shock: Status: Acute (3) Aspiration pneumonia: Status: Acute (4) Aspiration pneumonia of both lungs: Status: Acute Plan Septic shock: Resolved, off Levophed support since yesterday Bilateral pneumonia: Unspecified pneumonia possibly aspiration pneumonia and rhinoviral infection on 14 litres of oxygen On simple mask for oxygenation 14L will ask guardian to see if she is willing to go to court for code status change as he would be a very poor candidate to go on ventilator support given his comorbidities and deconditioning. 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 will start him on PPN. Anemia: Hemoglobin dropped to 9.3 from a baseline of 12. All the 3 cell lines appears to be diluted possibly secondary to IV fluids We will look for any signs of bleeding Acute Hypokalemia: We will replace as per protocol hypothyroidism: will change to IV levothyroxine Prophylaxis: lovenox, pantoprazole Quality Stroke Does the patient have a stroke diagnosis?: No VTE Prior VTE?: No VTE Risk Level:: Medical - moderate - high VTE Device Contraindication: N/A - Device Ordered VTE Drug Contraindication: N/A - Med Ordered
[2025-01-28] MEDS: Valproic Acid (as Sodium Salt) 500 MG in Dextrose 5 % 50 ML 55 MG IV ×2 (09:48→21:14)
--- NOTE | 2025-01-28 10:20 | MHC.CLN ---
PT REQUIRES PPN FOR NUTRITION SUPPORT R/T PROLONGED NPO STATUS PT WITH INCREASED NUTRITION RISK R/T PRESSURE INJURY CURRENTLY NPO WITH HX ASP PNA DISCUSSED AT ROUNDS WITH MD-PLAN TO START PPN REVIEWED LABS DISCUSSED WITH PHARMACY RECOMMEND STARTING PPN AT 55ML/HR TO PROVIDE 673KCALS, 132G DEXTROSE, 56G PROTEIN REPLETE LYTES NEEDED SEE FULL CLINICAL NUTRITION ASSESSMENT
--- NOTE | 2025-01-28 11:19 | PC.NURSE ---
Assume care @0700 Neuro:? Nonverbal at baseline, does not follow commands, Moves upper extremities spontaneously, Restless and agitated, Requiring frequent redirection,? Attempting to remove supplemental 02 and saturation probe. Currently on? restraining? Respiratory: on Nonrebreather mask, RR 25; SpO2 95%. Rhonchurous Bl throughout. Moist nonproductive cough.? Cardiac: Sinus rhythm on tele GI/: NPO; External catheter in? place patent/draining. Skin: Impaired skin integrity- see skin assessment (reposition maintained/ Foam DGS in place) Temp: Afebrile Lines: ?Peripheral IVs
--- NOTE | 2025-01-28 13:50 | MHC.CM.PN ---
Pt continues care in ICU: on NRB mask which he removes. Pt agitated and non verbal at baseline. MD to call pt's guardian to discuss goals of care/code status change as pt is a poor candidate for invasive measures like intubation. CM to await details of conversation before pursuing court expansion of guardianship. Pt from [facility] and would return if they are medically able to meet his needs. CM to follow.
--- NOTE | 2025-01-28 15:23 | HO.SKINPHOTO ---
Location: Rigth heel Location: Perineal Category:Blisters
[2025-01-28] MEDS: Parenteral Nutrition 1,320 ML 55 ML IV (21:23)
[2025-01-29] VITALS (28 sets, daily range): BP systolic 117–151; BP diastolic 59–82; PULSE 79–103; RESP 12–47; TEMP 36.4–37.9; O2SAT 90–98; BMI 27.5
[2025-01-29] MEDS: Albuterol Sulfate (0.083%) 2.5 MG/3 ML VIAL.NEB INHALE (02:50)
[2025-01-29 05:38] LABS: VBG HCO3 38 mmol/L (22-26); VBG O2 % Saturation 97.0 %
[2025-01-29 05:39] LABS: MANUAL DIFF FLAG NO
[2025-01-29 05:39] LABS: Venous Blood Gas Refer to POC result
[2025-01-29 05:40] LABS: Hematocrit 27.1 % (42.0-52.0); Hemoglobin 9.5 g/dl (14.0-18.0); Imm Gran Abs Auto 0.03 X10*3/uL (0.00-0.03); Imm Gran Pct Auto 0.5 % (0.0-0.4); Lymphocytes Absolute Auto 0.7 X10*3/uL (1.2-4.9); Mean Corpuscular HGB Conc 35.1 g/dl (31.0-36.0); Mean Corpuscular Hemoglobin 29.5 pg (27.0-33.0); Mean Corpuscular Volume 84.2 fL (80.0-98.0); NRBC Abs Auto 0.000 X10*3/uL (0.0-0.012); NRBC Pct Auto 0.0 /100WBC (0.0-0.2); Platelet Count 157 X10*3/uL (160-400); Red Blood Count 3.22 X10*6/uL (4.60-5.80); White Blood Count 5.6 X10*3/uL (4.8-10.8)
[2025-01-29] MEDS: Albuterol/Iprat 2.5/0.5MG 3 ML AMPUL.NEB INHALE ×5 (05:45→23:14)
[2025-01-29 05:55] LABS: Alanine Aminotransferase 12 U/L (0-40); Albumin Level 4.0 g/dL (3.5-5.0); Alkaline Phosphatase 26 U/L (39-117); Anion Gap 12 (12-20); Aspartate Amino Transferase 26 U/L (5-37); Blood Urea Nitrogen 8 mg/dL (9-16); Calcium 8.9 mg/dL (8.4-10.2); Carbon Dioxide 31 mmol/L (22-29); Chloride 99 mmol/L (96-108); Creatinine Clr Calc Pharmacy 172.8; Estimated Glomerular Filt Rate > 60; Magnesium 1.6 mg/dL (1.6-2.6); Potassium 3.6 mmol/L (3.3-5.1); Sodium 138 mmol/L (135-145); Total Protein 6.0 g/dL (6.5-8.0); Triglycerides 79 mg/dL (<150)
--- NOTE | 2025-01-29 07:24 | PC.NURSE ---
Critical Care Nursing Note? Assumed care of the patient at 1900. The patient nonverbal and unable to follow commands. Patient was placed? on a nonrebreather at 1900. Emelina Mcconnell placed an order for a sputum sample and scheduled duonebs. Patient was deep suctioned by RT, sputum sent for processing. Patient was then placed on oxymask at 10L at 2145.? Report given to oncoming shift.
[2025-01-29] MEDS: levETIRAcetam in NaCl (iso-os) 500 MG/100 ML PIGGYBACK 400 MG IV ×2 (08:16→20:05)
[2025-01-29] MEDS: 0.9 % Sodium Chloride Flush 3 ML SYRINGE IVFLUSH ×2 (08:19→16:11)
--- NOTE | 2025-01-29 08:58 | P.PNCC_ITS ---
Subjective Subjective Date of Service: 01/29/25 Interval History: Agitated, does not like to have oxygen on him or anyone touch him or examine him. He has been like that since admission and continuously drips off his oxygen. Critical Care Time (minutes): 35 Physical Exam 2 Vital Signs: Vital Signs: Last Vital Signs Temp 98.2 F 01/29/25 08:00 Pulse 87 01/29/25 08:00 Resp 16 01/29/25 08:00 BP 132/62 01/29/25 08:00 Pulse Ox 93 01/29/25 08:00 O2 Del Method Oxymask 01/29/25 08:00 O2 Flow Rate 10 01/29/25 08:00 BMI result Body Mass Index 27.5 General: Elderly male with significant neuro deficit at baseline in severe acute distress, ill appearing and tired appearing Nutritional Appearance: well nourished and overweight Eyes: appearance normal, both eyes and all related structures; Alignment and Position: alignment normal and position normal Neck: No lymphadenopathy, no thyromegaly Resp: bilateral air entry equal, bilateral crackles heard Cardio: Regular rate, regular rhythm; Heart sounds: S1 normal heart sound present and S2 normal heart sound present GI: soft, nontender, no guarding, no hepatosplenomegaly : bladder normal to inspection, bladder normal to palpation, no renal angle tenderness Skin: no rashes or lesions noted and elasticity normal Neuro: Not cooperative for neuro examination Objective Data Labs 01/29/25 05:28 01/29/25 05:28 Labs: Laboratory Results - last 24 hr 01/29/25 01/29/25 01/29/25 05:28 05:28 05:28 WBC 5.6 RBC 3.22 L Hgb 9.5 L Hct 27.1 L MCV 84.2 MCH 29.5 MCHC 35.1 RDW 13.1 Plt Count 157 L MPV 9.2 L Immature Gran % (Auto) 0.5 H Neut % (Auto) 71.6 Lymph % (Auto) 12.8 L Butler % (Auto) 12.4 H Eos % (Auto) 2.5 Baso % (Auto) 0.2 Lymph # (Auto) 0.7 L Butler # (Auto) 0.7 Eos # (Auto) 0.1 Baso # (Auto) 0.0 Abs Immat Gran (auto) 0.03 Absolute Neuts (auto) 4.0 Absolute Nucleated RBC 0.000 Nucleated RBC % (auto) 0.0 VBG pH VBG pCO2 VBG pO2 VBG HCO3 VBG O2 Saturation VBG Base Excess Sodium 138 Potassium 3.6 Chloride 99 Carbon Dioxide 31 H Anion Gap 12 BUN 8 L Creatinine 0.49 L Estim Creat Clear Calc 172.8 Estimated GFR > 60 Random Glucose 153 H Calcium 8.9 Phosphorus 3.0 Cancelled Magnesium 1.6 Cancelled Total Bilirubin 0.5 AST 26 ALT 12 Alkaline Phosphatase 26 L Total Protein 6.0 L Albumin 4.0 Triglycerides 79 01/29/25 05:34 WBC RBC Hgb Hct MCV MCH MCHC RDW Plt Count MPV Immature Gran % (Auto) Neut % (Auto) Lymph % (Auto) Butler % (Auto) Eos % (Auto) Baso % (Auto) Lymph # (Auto) Butler # (Auto) Eos # (Auto) Baso # (Auto) Abs Immat Gran (auto) Absolute Neuts (auto) Absolute Nucleated RBC Nucleated RBC % (auto) VBG pH 7.48 H VBG pCO2 51 VBG pO2 82 VBG HCO3 38 H VBG O2 Saturation 97.0 VBG Base Excess 13.3 Sodium Potassium Chloride Carbon Dioxide Anion Gap BUN Creatinine Estim Creat Clear Calc Estimated GFR Random Glucose Calcium Phosphorus Magnesium Total Bilirubin AST ALT Alkaline Phosphatase Total Protein Albumin Triglycerides Microbiology Microbiology Results: Microbiology 01/28/25 19:40 Sputum - Suctioned Gram Stain - Final 01/28/25 19:40 Sputum - Suctioned Sputum Culture - Preliminary No growth to date. 01/27/25 00:00 Blood - Venous Blood Culture - Preliminary No growth after 48 hours. 01/26/25 23:44 Blood - Venous Blood Culture - Preliminary No growth after 48 hours. Progress Note: A&P Assessment and plan (1) Acute hyponatremia: Status: Acute (2) Septic shock: Status: Acute (3) Acute metabolic encephalopathy: Status: Acute (4) Aspiration pneumonia: Status: Acute (5) Acute hypoxemic respiratory failure: Status: Acute Plan Septic shock: Resolved, off Levophed support since yesterday Bilateral pneumonia: Unspecified pneumonia possibly aspiration pneumonia and rhinoviral infection On simple mask for oxygenation 8L on duonebs scheduled, will add mucomyst q4h, and chest percussion therapy. will ask guardian to see if she is willing to go to court for code status change as he would be a very poor candidate to go on ventilator support given his comorbidities and deconditioning. Siezure disorder: underlying Michelle Gestatut syndrome He also has h/o Parkinson's disease, is nonverbal, bed-bound and has underlying history of seizures, depression, anxiety, constipation, TIA, hyperlipidemia, proptosis, on IV Keppra and valproic acid felbamate and lamotrigine has been witheld as he is NPO GI: he is NPO due to risk of aspiration can not tolerate NG tube. He is on PPN for nutrition. Anemia: Hemoglobin 9.5 will transfuse if Hb < 7g/dl. hypothyroidism: on IV levothyroxine Prophylaxis: lovenox, pantoprazole Quality Stroke Does the patient have a stroke diagnosis?: No VTE Prior VTE?: No VTE Risk Level:: Medical - moderate - high VTE Device Contraindication: N/A - Device Ordered VTE Drug Contraindication: N/A - Med Ordered
[2025-01-29] MEDS: Valproic Acid (as Sodium Salt) 500 MG in Dextrose 5 % 50 ML 55 MG IV ×2 (09:59→19:34)
--- NOTE | 2025-01-29 10:41 | MHC.CLN ---
F/U PT REMAINS NPO PT WITH INCREASED NUTRITION RISK R/T PRESSURE INJURY DISCUSSED AT ROUNDS WITH MD-PLAN FOR DISCUSSION WITH GUARDIAN TODAY REVIEWED LABS DISCUSSED WITH PHARMACY 01/29/25 RECOMMEND INCREASING PPN TO 75ML/HR TO PROVIDE 918KCALS, 180G DEXTROSE, 77G PROTEIN REPLETE LYTES NEEDED CHECK TRIGS 01/30/25 RECOMMEND INCREASING PPN TO MAX GOAL RATE OF 95 ML/HR WITH 79G LIPIDS TO PROVIDE 1953 TOTAL KCALS (25KCALS/KG BASED ON IBW), 228G DEXTROSE, 97G PROTEIN (1.2G/KG) REPLETE LYTES NEEDED CONTINUE PT AT MAX GOAL RATE THROUGH WEEKEND OR PER PROVIDERS INSTRUCTIONS RD CAN BE REACHED VIA [employer] DURING OFF HOURS IF NEEDED
--- NOTE | 2025-01-29 11:18 | MHC.CM.PN ---
Addendum entered by Renetta Rodriguez 01/29/25 14:27: Call placed to Liv Antunez, pt's guardian to discuss possible phone conference for code status change. She is in agreement with expansion - call placed to pt's shelter director, Oriana Hess at [phone] - message left requesting a callback. Will try to arrange conference for Saturday, 02/01 if all parties are able. CM to follow Original Note: Pt continues on 10 liters Oxymask in ICU: ATB for pna - continues to attempt removal of mask and O2 probe - MD to have detailed discussion w/pt's guardian about goals of care/prognosis which could facilitate a request for guardianship expansion to allow for DNR/DNI/MARKETING OPERATIONS CONSULTANT. Will await results of discussion for pursual of expansion. Pt is from a [facility] and will require BLS transport to home vs SNF placement.
[2025-01-29 11:40] LABS: Triglycerides 65 mg/dL (<150)
[2025-01-29] MEDS: Acetylcysteine 10 % 400 MG/4 ML VIAL INHALE ×3 (11:45→19:07)
--- NOTE | 2025-01-29 14:27 | PC.NURSE ---
Assumed care at 0700. Education on pt?s health status given to detention RN. to have discussion with guardian regarding goals of care & code status. See MAR and assessments for further details.
--- NOTE | 2025-01-29 15:04 | MHC.CM.PN ---
Addendum entered by Renetta Rodriguez 01/29/25 15:12: correction director: Madison Mendez at [phone] Original Note: Pt continues on 10 liters Oxymask in ICU: ATB for pna - continues to attempt removal of mask and O2 probe - MD to have detailed discussion w/pt's guardian about goals of care/prognosis which could facilitate a request for guardianship expansion to allow for DNR/DNI/PHOTOGRAPHY ASSISTANT. Will await results of discussion for pursual of expansion. Pt is from a [facility] and will require BLS transport to home vs SNF placement.
[2025-01-29] MEDS: Albuterol Sulfate 2.5 MG, Albuterol Sulfate (0.083%) 2.5 MG 5 MG INHALE (15:30)
[2025-01-29] MEDS: Parenteral Nutrition 1,800 ML 75 ML IV (20:06)
[2025-01-30] VITALS (13 sets, daily range): BP systolic 106–150; BP diastolic 52–73; PULSE 73–99; RESP 12–24; TEMP 36.4–39.1; O2SAT 91–97; BMI 27.0
[2025-01-30] MEDS: 0.9 % Sodium Chloride Flush 3 ML SYRINGE IVFLUSH ×4 (01:40→21:03)
[2025-01-30] MEDS: Albuterol/Iprat 2.5/0.5MG 3 ML AMPUL.NEB INHALE ×4 (05:18→18:36)
[2025-01-30 06:23] LABS: Alanine Aminotransferase 16 U/L (0-40); Albumin Level 3.9 g/dL (3.5-5.0); Alkaline Phosphatase 28 U/L (39-117); Anion Gap 14 (12-20); Aspartate Amino Transferase 31 U/L (5-37); Blood Urea Nitrogen 9 mg/dL (9-16); Calcium 9.4 mg/dL (8.4-10.2); Carbon Dioxide 29 mmol/L (22-29); Chloride 95 mmol/L (96-108); Creatinine Clr Calc Pharmacy 192.5; Estimated Glomerular Filt Rate > 60; Magnesium 1.5 mg/dL (1.6-2.6); Potassium 4.0 mmol/L (3.3-5.1); Sodium 134 mmol/L (135-145); Total Protein 6.4 g/dL (6.5-8.0)
--- NOTE | 2025-01-30 07:20 | PC.NURSE ---
Pt transferred from ICU earlier in shift. Patient nonverbal. Grunts and makes spitting noises at baseline. Patient with bilateral soft wrist restraints. Order in place until 193 on 01/30/2025. SCHOOL COUNSELOR maintaned. Vital signs as charted. Unable to currently remove restraints as patient attempts to remove oxygen and all lines upon removal. long-term member present at bedside. Camera in place. Oncoming nurse made aware.
[2025-01-30] MEDS: Valproic Acid (as Sodium Salt) 500 MG in Dextrose 5 % 50 ML 55 MG IV ×2 (08:50→22:59)
[2025-01-30] MEDS: levETIRAcetam in NaCl (iso-os) 500 MG/100 ML PIGGYBACK 400 MG IV ×2 (10:34→21:02)
[2025-01-30] MEDS: Acetylcysteine 10 % 400 MG/4 ML VIAL INHALE ×3 (11:14→18:36)
[2025-01-30] MEDS: Magnesium Sulfate/H2O 2 GM/50 ML PIGGYBACK IV (11:25)
--- NOTE | 2025-01-30 14:55 | HO.PM.IMPN ---
Subjective Subjective Date of Service: 01/30/25 Interval History: Pt initially admitted to ICU for acute hypoxic respiratory failure in the setting of aspiration pneumonia and sepsis Seen and evaluated resting comfortably in bed No acute events overnight Still altered, more somnolent and less interactive according to custodial staff at bedside Non-verbal, unable to provide hx or ROS Exam limited as pt does not like to be touched Review of Systems Review of Systems: Yes Unobtainable due to mental status Physical Exam Exam: Exam: General: Awake and alert, no acute distress. Resting comfortably in bed; non-verbal. In soft restraints for upper extremities Resp: CTA bilaterally CVS: S1, S2, RRR GI: +BS, NT, no distention Skin: Warm, dry Neuro: Motor grossly intact bilaterally Extremities: No edema Psych: Nonverbal Vital Signs: Vital Signs: Last Vital Signs Temp 100.3 F 01/30/25 12:00 Pulse 97 01/30/25 12:00 Resp 20 01/30/25 12:00 BP 109/52 L 01/30/25 12:00 Pulse Ox 93 01/30/25 12:00 O2 Del Method Nasal Cannula 01/30/25 12:00 O2 Flow Rate 9 01/30/25 12:00 BMI result Body Mass Index 27.0 Objective Data Active Medications Acetylcysteine (Acetylcysteine 10 % 400 Mg/4 Ml Vial) 400 mg INHALE RQ4H WHILE AWAKE [facility] Last Admin: 01/30/25 11:14 Dose: 400 mg Documented By: FABIOLA Albuterol Sulfate (Albuterol Sulfate (0.083%) 2.5 Mg/3 Ml Vial.Neb) 2.5 mg INHALE Q3H PRN PRN Reason: sob Last Admin: 01/29/25 02:50 Dose: 2.5 mg Documented By: MICHAEL Albuterol/Ipratropium (Albuterol/Iprat 2.5/0.5mg 3 Ml Ampul.Neb) 3 ml INHALE RQ4H WHILE AWAKE [facility] Last Admin: 01/30/25 11:14 Dose: 3 ml Documented By: FABIOLA Enoxaparin Sodium (Enoxaparin Sodium 40 Mg/0.4 Ml Syringe) 40 mg SUBCUT Q24H [facility] Last Admin: 01/30/25 09:01 Dose: 40 mg Documented By: MAI Levetiracetam (Keppra) 500 mg in 100 mls @ 400 mls/hr IV Q12H [facility] Last Infusion: 01/30/25 10:50 Dose: Infused Documented By: MAI Piperacillin Sod/Tazobactam (Sod 3.375 gm/ Sodium Chloride) 50 mls @ 100 mls/hr IV Q6H [facility] Last Infusion: 01/30/25 09:30 Dose: Infused Documented By: MAI Valproic Acid 500 mg/ Dextrose 55 mls @ 55 mls/hr IV BID [facility] Last Infusion: 01/30/25 12:00 Dose: Infused Documented By: MAI Acetaminophen (Ofirmev) 1,000 mg in 100 mls @ 400 mls/hr IV Q6H PRN PRN Reason: fever Last Infusion: 01/30/25 10:00 Dose: Infused Documented By: MAI Nutrition (Parenteral) (Parenteral Nutrition) 1,800 mls @ 75 mls/hr IV .Q24H [facility]; Protocol Stop: 01/30/25 20:59 Last Admin: 01/29/25 20:06 Dose: 75 mls/hr Documented By: SUPPLEK Nutrition (Parenteral) (Parenteral Nutrition) 2,280 mls @ 95 mls/hr IV .Q24H [facility]; Protocol Stop: 01/31/25 20:59 Levothyroxine Sodium (Levothyroxine Sodium 100 Mcg/5 Ml Vial) 75 mcg IVPUSH DAILY@0600 [facility] Last Admin: 01/30/25 05:50 Dose: 75 mcg Documented By: RONY Pantoprazole Sodium (Pantoprazole Sodium 40 Mg/10 Ml Vial) 40 mg IVPUSH DAILY@0630 [facility] Last Admin: 01/30/25 05:50 Dose: 40 mg Documented By: RONY Pharmacy Consult (Consult Rx Parenteral Nutrition Ordering) 1 each MISCELLANE DAILY PRN PRN Reason: Consult order Sodium Chloride (0.9 % Sodium Chloride Flush 3 Ml Syringe) 3 ml IVFLUSH QSHIFT [facility] Last Admin: 01/30/25 09:00 Dose: 3 ml Documented By: MAI Labs 01/29/25 05:28 01/30/25 05:58 Labs: Laboratory Results - last 24 hr 01/30/25 05:58 Hold Purple Top SEE NOTE Anion Gap 14 Estim Creat Clear Calc 192.5 Estimated GFR > 60 Random Glucose 126 H Calcium 9.4 Phosphorus 2.8 Magnesium 1.5 L Total Bilirubin 0.6 AST 31 ALT 16 Alkaline Phosphatase 28 L Total Protein 6.4 L Albumin 3.9 Microbiology Microbiology Results: Microbiology 01/28/25 19:40 Gram Stain - Final Sputum - Suctioned Sputum Culture - Preliminary Assessment and Plan (1) Aspiration pneumonia: Status: Acute (2) Acute hypoxemic respiratory failure: Status: Acute Plan Pt initially admitted to the ICU for acute hypoxic respiratory failure and acute metabolic encephalopathy in the setting of aspiration pneumonia. Pt was treated with Zosyn and BiPAP, eventually weaned to OxyMask 8 L. Acute metabolic encephalopathy in the setting of aspiration pneumonia with sepsis Originally admitted to ICU on BiPAP, then weaned to OxyMask 8 L Treated with Zosyn, day 4 Blood cultures negative after 48 hours Sputum culture negative; tested positive for rhinovirus Titrate supplemental O2 >92, wean as tolerated Agitation Pt continually attempting to remove IVs, supplemental O2 Soft restraints on upper extremities Diet Pt previously on pureed diet Has been switched to peripheral parenteral nutrition due to continued aspiration Continue PPN for now; pt will be evaluated by speech and swallow on Saturday Code status Pt has court-appointed guardian Currently full code, though currently attempting to have him switched to DNR/DNI Epilepsy Continue valproic acid and levetiracetam Continue lamotrigine and felbamate when able Hypothyroidism Continue levothyroxine when able Mood disorder Continue home mood stabilizers once able HLD Continue aspirin and statin once able Pt requires continued hospitalization for treatment with IV abx, PPN, and supplemental O2. Quality Stroke Does the patient have a stroke diagnosis?: No VTE Prior VTE?: No VTE Risk Level:: Medical - moderate - high VTE Device Contraindication: N/A - Device Ordered VTE Drug Contraindication: N/A - Med Ordered
[2025-01-30] MEDS: vancomycin/NS 2,000 MG/500 ML PLAST..BAG 250 MG IV (20:39)
--- NOTE | 2025-01-30 21:04 | PHA.PROG ---
Admission Date/Time: January 27, 2025 02:18 Indication: Empiric Weight in k.8 kg Serum Creatinine - Last 168 Hours 01/26/25 01/27/25 01/28/25 23:45 03:05 04:19 Creatinine 0.75 0.55 0.49 L 01/29/25 01/30/25 05:28 05:58 Creatinine 0.49 L 0.44 L Estimated CrCl and GFR - Last 168 Hours 01/26/25 01/27/25 01/28/25 23:45 03:05 04:19 Estim Creat Clear Calc 102.0 154.0 172.8 Estimated GFR > 60 > 60 > 60 01/29/25 01/30/25 05:28 05:58 Estim Creat Clear Calc 172.8 192.5 Estimated GFR > 60 > 60 Vancomycin Loading Dose: 2,000 mg Current Vancomycin Dosing Regimen: 1,500 mg q12h Vancomycin Monitoring using AUC goal of 400 - 600 range with trough as surrogate marker: 551, predicted trough 16.2 Date and Time for next Vancomycin Level to be drawn: 02/01 @ 0600 Pharmacist Comments on Vancomycin Plan: Vancomycin dosing will take advantage of [employer] as a clinical decision support tool that uses Bayesian modeling to calculate individual patient's pharmacokinetic parameters and forecast the patient's drug concentration time course with the target goal AUC 24 range of 400 - 600 mg/L/hr.
[2025-01-31] VITALS (11 sets, daily range): BP systolic 122–156; BP diastolic 58–68; PULSE 69–89; RESP 12–36; TEMP 37.2–38.5; O2SAT 89–99; BMI 26.7
[2025-01-31] MEDS: Parenteral Nutrition 2,280 ML 95 ML IV ×2 (00:32→22:09)
[2025-01-31 00:56] LABS: Venous Blood Gas Refer to POC result
[2025-01-31 00:58] LABS: VBG HCO3 34 mmol/L (22-26); VBG O2 % Saturation 100.0 %
[2025-01-31] MEDS: Albuterol/Iprat 2.5/0.5MG 3 ML AMPUL.NEB INHALE ×5 (01:10→19:18)
[2025-01-31 06:56] LABS: Alanine Aminotransferase 31 U/L (0-40); Albumin Level 3.9 g/dL (3.5-5.0); Alkaline Phosphatase 32 U/L (39-117); Anion Gap 12 (12-20); Aspartate Amino Transferase 64 U/L (5-37); Blood Urea Nitrogen 12 mg/dL (9-16); Calcium 9.8 mg/dL (8.4-10.2); Carbon Dioxide 31 mmol/L (22-29); Chloride 97 mmol/L (96-108); Creatinine Clr Calc Pharmacy 176.4; Estimated Glomerular Filt Rate > 60; Magnesium 1.9 mg/dL (1.6-2.6); Potassium 4.4 mmol/L (3.3-5.1); Sodium 136 mmol/L (135-145); Total Protein 6.9 g/dL (6.5-8.0)
[2025-01-31] MEDS: Acetylcysteine 10 % 400 MG/4 ML VIAL INHALE ×4 (07:56→19:18)
[2025-01-31] MEDS: 0.9 % Sodium Chloride Flush 3 ML SYRINGE IVFLUSH ×2 (08:48→17:48)
[2025-01-31] MEDS: levETIRAcetam in NaCl (iso-os) 500 MG/100 ML PIGGYBACK 400 MG IV ×2 (08:53→20:55)
--- NOTE | 2025-01-31 09:07 | P.PNIM_ITS ---
Subjective Subjective Date of Service: 01/31/25 Interval History: More awake and restless Intermittent fevers O2 requirement reduced to Oxymask 4L Continues to need soft retraints to prevent pull off Review of Systems Review of Systems: Yes Unobtainable due to mental condition Physical Exam 2 Exam: Exam: General: Awake and alert, no acute distress. Resting comfortably in bed; non- verbal. In soft restraints for upper extremities Resp: CTA bilaterally CVS: S1, S2, RRR GI: +BS, NT, no distention Skin: Warm, dry Neuro: Motor grossly intact bilaterally Extremities: No edema. Heel offloaded in boots Psych: Nonverbal; agitated when touched Vital Signs: Vital Signs: Last Vital Signs Temp 99.0 F 01/31/25 08:00 Pulse 74 01/31/25 08:00 Resp 20 01/31/25 08:00 BP 137/63 01/31/25 08:00 Pulse Ox 96 01/31/25 08:00 O2 Del Method Oxymask 01/31/25 08:00 O2 Flow Rate 5 01/31/25 08:00 BMI result Body Mass Index 26.7 Objective Data Active Medications Acetylcysteine (Acetylcysteine 10 % 400 Mg/4 Ml Vial) 400 mg INHALE RQ4H WHILE AWAKE [facility] Last Admin: 01/31/25 07:56 Dose: 400 mg Documented By: FABIOLA Albuterol Sulfate (Albuterol Sulfate (0.083%) 2.5 Mg/3 Ml Vial.Neb) 2.5 mg INHALE Q3H PRN PRN Reason: sob Last Admin: 01/29/25 02:50 Dose: 2.5 mg Documented By: MICHAEL Albuterol/Ipratropium (Albuterol/Iprat 2.5/0.5mg 3 Ml Ampul.Neb) 3 ml INHALE RQ4H WHILE AWAKE [facility] Last Admin: 01/31/25 01:10 Dose: 3 ml Documented By: CRISTÓBAL Enoxaparin Sodium (Enoxaparin Sodium 40 Mg/0.4 Ml Syringe) 40 mg SUBCUT Q24H [facility] Last Admin: 01/31/25 08:53 Dose: 40 mg Documented By: STACEY Levetiracetam (Keppra) 500 mg in 100 mls @ 400 mls/hr IV Q12H [facility] Last Admin: 01/31/25 08:53 Dose: 400 mls/hr Documented By: STACEY Piperacillin Sod/Tazobactam (Sod 3.375 gm/ Sodium Chloride) 50 mls @ 100 mls/hr IV Q6H [facility] Last Admin: 01/31/25 08:49 Dose: 100 mls/hr Documented By: STACEY Valproic Acid 500 mg/ Dextrose 55 mls @ 55 mls/hr IV BID [facility] Last Infusion: 01/30/25 23:59 Dose: Infused Documented By: LOUISA Nutrition (Parenteral) (Parenteral Nutrition) 2,280 mls @ 95 mls/hr IV .Q24H [facility]; Protocol Stop: 01/31/25 20:59 Last Admin: 01/31/25 00:32 Dose: 95 mls/hr Documented By: LOUISA Vancomycin HCl 1,500 mg/ (Sodium Chloride) 500 mls @ 333.333 mls/hr IV Q12H [facility] Levothyroxine Sodium (Levothyroxine Sodium 100 Mcg/5 Ml Vial) 75 mcg IVPUSH DAILY@0600 [facility] Last Admin: 01/31/25 05:52 Dose: 75 mcg Documented By: LOUISA Pantoprazole Sodium (Pantoprazole Sodium 40 Mg/10 Ml Vial) 40 mg IVPUSH DAILY@0630 [facility] Last Admin: 01/31/25 05:52 Dose: 40 mg Documented By: LOUISA Pharmacy Consult (Consult Rx Parenteral Nutrition Ordering) 1 each MISCELLANE DAILY PRN PRN Reason: Consult order Pharmacy Consult (Consult Rx Vancomycin Dosing) 1 each MISCELLANE DAILY PRN PRN Reason: Consult order Sodium Chloride (0.9 % Sodium Chloride Flush 3 Ml Syringe) 3 ml IVFLUSH QSHIFT [facility] Last Admin: 01/31/25 08:48 Dose: 3 ml Documented By: STACEY Labs 01/29/25 05:28 01/31/25 06:34 Labs: Laboratory Results - last 24 hr 01/30/25 01/31/25 01/31/25 18:24 00:55 01:50 VBG pH 7.53 H VBG pCO2 40 VBG pO2 165 VBG HCO3 34 H VBG O2 Saturation 100.0 VBG Base Excess 11.0 Anion Gap Estim Creat Clear Calc Estimated GFR Random Glucose Lactic Acid 0.7 Calcium Phosphorus Magnesium Total Bilirubin AST ALT Alkaline Phosphatase Total Protein Albumin Random Vancomycin < 2.0 L 01/31/25 06:34 VBG pH VBG pCO2 VBG pO2 VBG HCO3 VBG O2 Saturation VBG Base Excess Anion Gap 12 Estim Creat Clear Calc 176.4 Estimated GFR > 60 Random Glucose 122 H Lactic Acid Calcium 9.8 Phosphorus 4.4 Magnesium 1.9 Total Bilirubin 0.6 AST 64 H ALT 31 Alkaline Phosphatase 32 L Total Protein 6.9 Albumin 3.9 Random Vancomycin Microbiology Microbiology Results: Microbiology 01/28/25 19:40 Gram Stain - Final Sputum - Suctioned Sputum Culture - Final Assessment and Plan (1) Aspiration pneumonia: Status: Acute Plan Pt initially admitted to the ICU for acute hypoxic respiratory failure and acute metabolic encephalopathy in the setting of aspiration pneumonia. Pt was treated with Zosyn and BiPAP, eventually weaned to OxyMask 8 L. Acute metabolic encephalopathy in the setting of aspiration pneumonia with sepsis Originally admitted to ICU on BiPAP, then weaned to OxyMask 8 L Treated with Zosyn, day 4; Vanco added due to intermittent fevers, day 1 Blood cultures negative after 48 hours; new blood cultures draw today Sputum culture negative; tested positive for rhinovirus Titrate supplemental O2 >92, wean as tolerated Agitation Pt continually attempting to remove IVs, supplemental O2 Soft restraints on upper extremities Diet Pt previously on pureed diet Has been switched to peripheral parenteral nutrition due to continued aspiration Continue PPN for now; pt will be evaluated by speech and swallow on Saturday Code status Pt has court-appointed guardian Currently full code, though currently attempting to have him switched to DNR/DNI Epilepsy Continue valproic acid and levetiracetam Continue lamotrigine and felbamate when able Hypothyroidism Continue levothyroxine when able Mood disorder Continue home mood stabilizers once able HLD Continue aspirin and statin once able Pt requires continued hospitalization for treatment with IV abx, PPN, and supplemental O2. Quality Stroke Does the patient have a stroke diagnosis?: No VTE Prior VTE?: No VTE Risk Level:: Medical - moderate - high VTE Device Contraindication: N/A - Device Ordered VTE Drug Contraindication: N/A - Med Ordered
[2025-01-31 10:15] LABS: Appearance Urine Clear; Glucose Urine UA Negative (Negative); PH 7.5 (5.0-9.0); Specific Gravity - Urine 1.020 (1.005-1.025)
[2025-01-31] MEDS: Valproic Acid (as Sodium Salt) 500 MG in Dextrose 5 % 50 ML 55 MG IV ×2 (10:49→23:24)
[2025-01-31] MEDS: Acetaminophen Supp 650 MG SUPP.RECT PR (21:05)
[2025-02-01] VITALS (10 sets, daily range): BP systolic 121–151; BP diastolic 57–67; PULSE 72–89; RESP 20–36; TEMP 36.9–39.1; O2SAT 89–98; BMI 26.2
[2025-02-01] MEDS: Acetaminophen Supp 650 MG SUPP.RECT PR ×2 (04:50→19:58)
[2025-02-01 06:51] LABS: Alanine Aminotransferase 40 U/L (0-40); Albumin Level 3.8 g/dL (3.5-5.0); Alkaline Phosphatase 32 U/L (39-117); Anion Gap 12 (12-20); Aspartate Amino Transferase 58 U/L (5-37); Blood Urea Nitrogen 10 mg/dL (9-16); Calcium 9.6 mg/dL (8.4-10.2); Carbon Dioxide 29 mmol/L (22-29); Chloride 99 mmol/L (96-108); Creatinine Clr Calc Pharmacy 184.1; Estimated Glomerular Filt Rate > 60; Magnesium 1.9 mg/dL (1.6-2.6); Potassium 4.5 mmol/L (3.3-5.1); Sodium 135 mmol/L (135-145); Total Protein 6.8 g/dL (6.5-8.0)
[2025-02-01] MEDS: Acetylcysteine 10 % 400 MG/4 ML VIAL INHALE ×3 (07:44→19:26)
[2025-02-01] MEDS: Albuterol/Iprat 2.5/0.5MG 3 ML AMPUL.NEB INHALE ×4 (07:44→19:26)
--- NOTE | 2025-02-01 08:00 | HE.PHANOTE ---
VANCO DOSE ADJUSTMENT BASED ON SCR AND TROUGH OF 9.1. DOSE INCREASED TO 1250 Q8. NEXT LEVEL AT 02/02 @ 0600
[2025-02-01] MEDS: 0.9 % Sodium Chloride Flush 3 ML SYRINGE IVFLUSH ×2 (09:05→19:59)
[2025-02-01] MEDS: levETIRAcetam in NaCl (iso-os) 500 MG/100 ML PIGGYBACK 400 MG IV ×2 (09:05→22:13)
[2025-02-01] MEDS: Valproic Acid (as Sodium Salt) 500 MG in Dextrose 5 % 50 ML 55 MG IV ×2 (09:45→22:15)
--- NOTE | 2025-02-01 10:30 | MHC.CM.PN ---
Per ROUNDS discussion, Patient is not yet medically cleared for dc (Spiking fevers,PPN,needs ID Consult & swallow eval);[facility] is the goal and CM will continue to follow.
--- NOTE | 2025-02-01 11:05 | MHC.CLN ---
F/U PT REMAINS NPO PT WITH INCREASED NUTRITION RISK R/T PRESSURE INJURY REVIEWED LABS DISCUSSED WITH PHARMACY CONTINUE PPN AT MAX GOAL RATE OF 95 ML/HR WITH 79G LIPIDS TO PROVIDE 1953 TOTAL KCALS (25KCALS/KG BASED ON IBW), 228G DEXTROSE, 97G PROTEIN (1.2G/KG) REPLETE LYTES NEEDED
--- NOTE | 2025-02-01 13:00 | MHC.SL.SWA ---
Addendum entered and electronically signed by Claire Lee MS, CCC-HOB MILL OPERATOR 02/03/25 10:57: HOB MILL OPERATOR error: no recommendations for PO made at time of this visit, disregard information on this note under Diet Status and Solid Food Consistency, Claire Lee MS CCC-HOB MILL OPERATOR Original Note: Speech Pathologist Impression: Mild oropharyngeal dysphagia, moderate pharyngoesophageal dysphagia Risk of Aspiration Due to: Hx aspiration Hx dysphagia Respiratory status Dysphasia Diet Status: Recommend patient continue w/ PUREE solids (NDD1) and THIN liquids (by nosey cup ). Recommend full 1-1 assistance feeding and alternating between liquids and solids. Liquid Consistency and Strategies for Safe Swallow: Liquid Intake Recommendation: NPO Liquid Intake Strategies: Solid Food Consistency: Dietary Recommendations: NPO Additional Modifications to Solid Foods: Recommending UPGRADE to PUREE SOLIDS (NDD1) and THIN LIQUIDS. MEDS CRUSHED in PUREE. 1:1 ASSIST at this time. NO STRAWS. Oral Medication Intake: NPO Please contact the pharmacy regarding appropriate crushable or liquid drug formulations that are available whenever modified delivery is recommended. Compensatory Strategies and Precautions to be Taken for Safe Swallow: Supervision While Eating and Drinking for Safe Swallow: PO with HOB MILL OPERATOR Foods to Avoid: Swallowing Recommended Treatments: Recommendation for Speech: Comment: Pt is deaf/blind, with some residual hearing ability. Pt has been seen by HOB MILL OPERATOR in the past, on pureed diet with thins at baseline. Pt alert, answered a few simple yes/no questions, showed sense of humor when cued to clear throat. OM mobility limited, but with adequate jaw depression and labial closure, good anterior to posterior mobility for speech production and transit phase of swallow. Oropharyngeal coordination WFL for approxiamtely 4 1/4 tsps of pudding; however, minimal trials presented d/t overt s/s of aspiration: coughing, multiple swallows. Pt voicing initially absent of wetness but harsh. Vocal wetness occurred s/p swallow d/t poor pharyngeal clearance of pudding. RN and MD notified of findings, recc NPO strict, HOB MILL OPERATOR to re-evaluate daily. Question interference of esophageal phase of swallow given pt history. Frequency/Duration: Date Range for Service Req: Timeline to reassess: Scrap Collector Clinican/Clinical Fellow: No Supervisory Statement: I have reviewed and agree with the student/clinical fellow's documentation: N/A Speech Language Pathologist: Claire Lee M.S., [facility]HOB MILL OPERATOR
--- NOTE | 2025-02-01 16:41 | W.PM.IDCN ---
History of Present Illness Data of Consult Service Date: 02/01/25 Requesting physician: Cali Thompson Primary Care Provider: Darrick Vernon NP HPI Reason for consult: cough,pneumonia He presents with shortness of breath and cough. He has had temperature around 101 He has no rash or other concerns PMFSH Past Medical History Medical History Fever Epileptic seizure Depression Generalized anxiety disorder Ganglion cyst Aspiration pneumonia Parkinson disease Dysphagia Anxiety Constipation TIA (transient ischemic attack) Hyperlipidemia Glaucoma Hyperopia of left eye Proptosis Aphakia, both eyes Osteopenia Hypothyroidism Hurdland-Gastaut syndrome, intractable, with status epilepticus Family History Family history: reviewed and not pertinent Social History Social History Household Members: Other Household Members Other:: shelter members Housing: Other Housing Other:: shelter Do you presently have visiting nurse or other home services: No Unable to assess alcohol history related to: Unknown Comment: shelter member in place Patient Tobacco Use Status: Never used Tobacco Smoked in Last 30 Days: No e-Cigarette/Vaping Use: Never Used Second Hand Smoke Exposure: No Use of substances other than those prescribed or required for medical reasons: No Currently Displaying Signs/Symptoms of Drug Intoxication Withdrawal: No Advance Directives: Yes Advance Directives on File: Yes Advance Directives Date on File: 04/01/22 Do you have a plan to hurt others: No Plan Recently lost weight without trying: No Eating poorly because of decreased appetite: No Nutrition Risks: No Nutritional Risk service: No Meds Allergies Allergy/AdvReac Type Severity Reaction Status Date / Time erythromycin base Allergy Unknown HIVES Verified 01/26/25 23:35 (ERYTHROMYCIN BASE) gentamicin (GENTAMICIN) Allergy Unknown UNKNOWN Verified 01/26/25 23:35 Macrolide Antibiotics Allergy Unknown UNKNOWN Verified 01/26/25 23:35 (MACROLIDE ANTIBIOTICS) KETOLIDES Allergy Unknown UNKNOWN Uncoded 01/26/25 23:35 Active Medications: Current Medications Acetaminophen (Acetaminophen Supp 650 Mg Supp.Rect) 650 mg CO Q6H PRN PRN Reason: Fever Last Admin: 02/01/25 04:50 Dose: 650 mg Acetylcysteine (Acetylcysteine 10 % 400 Mg/4 Ml Vial) 400 mg INHALE RBID [facility] Albuterol Sulfate (Albuterol Sulfate (0.083%) 2.5 Mg/3 Ml Vial.Neb) 2.5 mg INHALE Q3H PRN PRN Reason: sob Last Admin: 01/29/25 02:50 Dose: 2.5 mg Albuterol/Ipratropium (Albuterol/Iprat 2.5/0.5mg 3 Ml Ampul.Neb) 3 ml INHALE RQ4H WHILE AWAKE [facility] Last Admin: 02/01/25 15:26 Dose: 3 ml Enoxaparin Sodium (Enoxaparin Sodium 40 Mg/0.4 Ml Syringe) 40 mg SUBCUT Q24H [facility] Last Admin: 02/01/25 09:04 Dose: 40 mg Levetiracetam (Keppra) 500 mg in 100 mls @ 400 mls/hr IV Q12H [facility] Last Infusion: 02/01/25 09:20 Dose: Infused Piperacillin Sod/Tazobactam (Sod 3.375 gm/ Sodium Chloride) 50 mls @ 100 mls/hr IV Q6H [facility] Last Admin: 02/01/25 15:27 Dose: Not Given Valproic Acid 500 mg/ Dextrose 55 mls @ 55 mls/hr IV BID [facility] Last Infusion: 02/01/25 11:00 Dose: Infused Nutrition (Parenteral) (Parenteral Nutrition) 2,280 mls @ 95 mls/hr IV .Q24H [facility]; Protocol Stop: 02/01/25 20:59 Last Admin: 01/31/25 22:09 Dose: 95 mls/hr Vancomycin HCl 1,250 mg/ (Sodium Chloride) 250 mls @ 166.667 mls/hr IV Q8H [facility] Last Infusion: 02/01/25 11:10 Dose: Infused Nutrition (Parenteral) (Parenteral Nutrition) 2,280 mls @ 95 mls/hr IV .Q24H [facility]; Protocol Stop: 02/02/25 20:59 Levothyroxine Sodium (Levothyroxine Sodium 100 Mcg/5 Ml Vial) 75 mcg IVPUSH DAILY@0600 [facility] Last Admin: 02/01/25 06:15 Dose: 75 mcg Pantoprazole Sodium (Pantoprazole Sodium 40 Mg/10 Ml Vial) 40 mg IVPUSH DAILY@0630 [facility] Last Admin: 02/01/25 04:51 Dose: 40 mg Pharmacy Consult (Consult Rx Parenteral Nutrition Ordering) 1 each MISCELLANE DAILY PRN PRN Reason: Consult order Pharmacy Consult (Consult Rx Vancomycin Dosing) 1 each MISCELLANE DAILY PRN PRN Reason: Consult order Sodium Chloride (0.9 % Sodium Chloride Flush 3 Ml Syringe) 3 ml IVFLUSH QSHIFT [facility] Last Admin: 02/01/25 09:05 Dose: 3 ml Home Medications ?Medication ?Instructions ?Recorded ?Confirmed ?Last Taken ?Type acetaminophen 325 mg tablet 650 mg PO Q6H PRN Fever Or Pain 04/01/23 01/27/25 12/16/23 History cholecalciferol (vitamin D3) 1,250 1,250 mcg PO WE@0900 04/01/23 01/27/25 01/20/25 History mcg (50,000 unit) capsule clonazepam 0.5 mg tablet 0.25 mg PO BID@0800,1200 04/01/23 01/27/25 01/26/25 History clonazepam 0.5 mg tablet 0.5 mg PO BEDTIME 04/01/23 01/27/25 01/26/25 History divalproex 125 mg capsule,delayed 500 mg PO TID 04/01/23 01/27/25 01/26/25 History release sprinkle (Depakote Sprinkles) felbamate 400 mg tablet 800 mg PO TID 04/01/23 01/27/25 01/26/25 History levetiracetam 500 mg tablet 1,000 mg PO TID 04/01/23 01/27/25 01/26/25 History levothyroxine 88 mcg tablet 88 mcg PO DAILY@0600 04/01/23 01/27/25 01/26/25 History sertraline 50 mg tablet 50 mg PO BEDTIME 04/01/23 01/27/25 01/26/25 History simvastatin 40 mg tablet 40 mg PO BEDTIME 04/01/23 01/27/25 01/26/25 History zinc oxide 13 % topical cream 1 appl topical TID PRN Rash 04/01/23 01/27/25 Unknown History (Desitin Daily Defense) bisacodyl 10 mg rectal suppository 10 mg CO DAILY PRN Constipation 06/08/23 01/27/25 Unknown History (OneLAX Bisacodyl) guaifenesin 100 mg/5 mL oral liquid 200 mg PO Q6H PRN Cough 06/08/23 01/27/25 Unknown History magnesium hydroxide 400 mg/5 mL 30 ml PO Q OTHER DAY Constipation 06/08/23 01/27/25 12/16/23 History oral suspension (Milk of Magnesia) polyethylene glycol 3350 17 17 g PO DAILY 06/08/23 01/27/25 01/26/25 History gram/dose oral powder sodium phosphates 19 gram-7 118 ml CO DAILY PRN Constipation 06/08/23 01/27/25 Unknown History gram/118 mL enema (Enema Disposable) aspirin 81 mg chewable tablet 81 mg PO DAILY@0800 12/17/23 01/27/25 01/26/25 History bacitracin 500 unit/gram topical 1 appl topical BID PRN wounds 12/17/23 01/27/25 Unknown History ointment docusate sodium 50 mg/5 mL oral 100 mg PO DAILY@0800 12/17/23 01/27/25 01/26/25 History liquid midazolam 5 mg/spray (0.1 mL) 5 mg intranasal Q10M PRN Seizures 12/17/23 01/27/25 01/26/25 History nasal spray (Nayzilam) therapeutic multivitamin 1 tab PO DAILY 01/27/25 01/27/25 01/26/25 History white petrolatum-mineral oil 57.3 1 appl ophthalmic (eye) BEDTIME 01/27/25 01/27/25 01/26/25 History %-42.5 % eye ointment (Refresh P.M.) Physical Exam Vital Signs: Vital Signs: Last Vital Signs Temp 98.4 F 02/01/25 15:41 Pulse 80 02/01/25 15:41 Resp 20 02/01/25 15:41 BP 121/65 02/01/25 15:41 Pulse Ox 98 02/01/25 15:41 O2 Del Method Nasal Cannula 02/01/25 15:41 O2 Flow Rate 5 02/01/25 15:41 BMI result Body Mass Index 26.2 Const: General: cooperative HEENT: Head: Yes normal to inspection Face and sinus: Yes normal facial exam Mouth: Normal oral and palatal mucosa present Teeth and gingiva: dentition normal Eyes: General: appearance normal, both eyes and all related structures Pupils: Equal, round and reactive pupils present Resp: Effort & Inspection: normal respiratory effort Cardio: Rate: regular rate Rhythm: regular rhythm GI: Palpation (GI): Soft to palpation and nontender : General: Yes no CVA tenderness Back/Spine/Pelvis: Back: no CVA tenderness Skin: General skin exam: no rashes or lesions noted Neuro: General: moves all extremities Cranial nerves: Yes Equal, round and reactive pupils present Extrem: Other: tired nonverbal Psych: Appearance: grossly normal Results Labs 01/29/25 05:28 02/01/25 06:14 Labs: BMP 02/01/25 06:14 Sodium 135 Potassium 4.5 Chloride 99 Carbon Dioxide 29 BUN 10 Creatinine 0.46 L Calcium 9.6 Liver Function 02/01/25 Range/Units 06:14 Total Bilirubin 0.4 (0.0-1.0) mg/dL AST 58 H (5-37) U/L ALT 40 (0-40) U/L Alkaline Phosphatase 32 L (39-117) U/L Albumin 3.8 (3.5-5.0) g/dL Microbiology Microbiology Results: Microbiology 01/31/25 09:22 Urine Catheterized - Straight Catheter Urine Culture - Preliminary No growth to date. 01/31/25 01:49 Blood - Venous Blood Culture - Preliminary No growth after 24 hours. 01/31/25 01:49 Blood - Venous Blood Culture - Preliminary No growth after 24 hours. 01/27/25 00:00 Blood - Venous Blood Culture - Final No growth after 5 days. 01/26/25 23:44 Blood - Venous Blood Culture - Final No growth after 5 days. 01/28/25 19:40 Sputum - Suctioned Gram Stain - Final 01/28/25 19:40 Sputum - Suctioned Sputum Culture - Final Assessment and Plan (1) Aspiration pneumonia: Status: Acute Plan Check nares MRSA if not done. If MRSA negative stop Vancomycin tonorrow, Otherwise if still on oxygen tomorrow IV Doxycycline and Zosyn total 8 days treat aspiration.
--- NOTE | 2025-02-01 18:42 | HO.PM.IMPN ---
Subjective Subjective Date of Service: 02/01/25 Interval History: Pt seen and evaluated where he is resting comfortably in bed Continue to have fevers up to 101.3 Awake, less agitated Primarily nonverbal Review of Systems Review of Systems: Yes Unobtainable due to mental status Physical Exam Exam: Exam: General: Awake and alert, no acute distress. Resting comfortably in bed; non-verbal. In soft restraints for upper extremities Resp: CTA bilaterally CVS: S1, S2, RRR GI: +BS, NT, no distention Skin: Warm, dry Neuro: Motor grossly intact bilaterally Extremities: No edema. Heels offloaded in boots Psych: Nonverbal; agitated when touched Vital Signs: Vital Signs: Last Vital Signs Temp 98.4 F 02/01/25 15:41 Pulse 80 02/01/25 15:41 Resp 20 02/01/25 15:41 BP 121/65 02/01/25 15:41 Pulse Ox 98 02/01/25 15:41 O2 Del Method Nasal Cannula 02/01/25 15:41 O2 Flow Rate 5 02/01/25 15:41 BMI result Body Mass Index 26.2 Objective Data Active Medications Acetaminophen (Acetaminophen Supp 650 Mg Supp.Rect) 650 mg MT Q6H PRN PRN Reason: Fever Last Admin: 02/01/25 04:50 Dose: 650 mg Documented By: ZULLY Acetylcysteine (Acetylcysteine 10 % 400 Mg/4 Ml Vial) 400 mg INHALE RBID [facility] Albuterol Sulfate (Albuterol Sulfate (0.083%) 2.5 Mg/3 Ml Vial.Neb) 2.5 mg INHALE Q3H PRN PRN Reason: sob Last Admin: 01/29/25 02:50 Dose: 2.5 mg Documented By: MICHAEL Albuterol/Ipratropium (Albuterol/Iprat 2.5/0.5mg 3 Ml Ampul.Neb) 3 ml INHALE RQ4H WHILE AWAKE [facility] Last Admin: 02/01/25 15:26 Dose: 3 ml Documented By: ANTONIETA Enoxaparin Sodium (Enoxaparin Sodium 40 Mg/0.4 Ml Syringe) 40 mg SUBCUT Q24H [facility] Last Admin: 02/01/25 09:04 Dose: 40 mg Documented By: MAI Levetiracetam (Keppra) 500 mg in 100 mls @ 400 mls/hr IV Q12H [facility] Last Infusion: 02/01/25 09:20 Dose: Infused Documented By: MAI Valproic Acid 500 mg/ Dextrose 55 mls @ 55 mls/hr IV BID [facility] Last Infusion: 02/01/25 11:00 Dose: Infused Documented By: MAI Nutrition (Parenteral) (Parenteral Nutrition) 2,280 mls @ 95 mls/hr IV .Q24H [facility]; Protocol Stop: 02/01/25 20:59 Last Admin: 01/31/25 22:09 Dose: 95 mls/hr Documented By: ZULLY Vancomycin HCl 1,250 mg/ (Sodium Chloride) 250 mls @ 166.667 mls/hr IV Q8H [facility] Last Admin: 02/01/25 17:56 Dose: 166.67 mls/hr Documented By: ORQUIDEA Comments: dental assistant medical assistant later d/t MD verbal order to hold med . Verbal order received to admin med at current time Nutrition (Parenteral) (Parenteral Nutrition) 2,280 mls @ 95 mls/hr IV .Q24H [facility]; Protocol Stop: 02/02/25 20:59 Piperacillin Sod/Tazobactam (Sod 3.375 gm/ Sodium Chloride) 50 mls @ 100 mls/hr IV Q6H [facility] Levothyroxine Sodium (Levothyroxine Sodium 100 Mcg/5 Ml Vial) 75 mcg IVPUSH DAILY@0600 [facility] Last Admin: 02/01/25 06:15 Dose: 75 mcg Documented By: ZULLY Pantoprazole Sodium (Pantoprazole Sodium 40 Mg/10 Ml Vial) 40 mg IVPUSH DAILY@0630 [facility] Last Admin: 02/01/25 04:51 Dose: 40 mg Documented By: ZULLY Pharmacy Consult (Consult Rx Parenteral Nutrition Ordering) 1 each MISCELLANE DAILY PRN PRN Reason: Consult order Pharmacy Consult (Consult Rx Vancomycin Dosing) 1 each MISCELLANE DAILY PRN PRN Reason: Consult order Sodium Chloride (0.9 % Sodium Chloride Flush 3 Ml Syringe) 3 ml IVFLUSH QSHIFT [facility] Last Admin: 02/01/25 17:57 Dose: Not Given Documented By: ORQUIDEA Non-Admin Reason: IV Running Labs 01/29/25 05:28 02/01/25 06:14 Labs: Laboratory Results - last 24 hr 02/01/25 06:14 Hold Purple Top SEE NOTE Anion Gap 12 Estim Creat Clear Calc 184.1 Estimated GFR > 60 Random Glucose 122 H Calcium 9.6 Phosphorus 4.3 Magnesium 1.9 Total Bilirubin 0.4 AST 58 H ALT 40 Alkaline Phosphatase 32 L Total Protein 6.8 Albumin 3.8 Vancomycin Trough 9.1 L Microbiology Microbiology Results: Microbiology 01/31/25 09:22 Urine Culture - Preliminary Urine Catheterized - Straight Catheter No growth to date. 01/31/25 01:49 Blood Culture - Preliminary Blood - Venous No growth after 24 hours. 01/31/25 01:49 Blood Culture - Preliminary Blood - Venous No growth after 24 hours. 01/27/25 00:00 Blood Culture - Final Blood - Venous No growth after 5 days. 01/26/25 23:44 Blood Culture - Final Blood - Venous No growth after 5 days. Assessment and Plan (1) Aspiration pneumonia: Status: Acute Plan Pt initially admitted to the ICU for acute hypoxic respiratory failure and acute metabolic encephalopathy in the setting of aspiration pneumonia. Pt was treated with Zosyn and BiPAP, eventually weaned to OxyMask 8 L. Acute metabolic encephalopathy in the setting of aspiration pneumonia with sepsis Originally admitted to ICU on BiPAP, then weaned to OxyMask 8 L Treated with Zosyn, day 5; Vanco added due to intermittent fevers, day 2 Blood cultures negative after 48 hours; new blood cultures negative after 24 hours Sputum culture negative; tested positive for rhinovirus Seen by ID: will check MRSA nasal swab; continue abx for now Will check CBC, BMP, CT of chest tomorrow Titrate supplemental O2 >92, wean as tolerated Agitation Pt continually attempting to remove IVs, supplemental O2 Soft restraints on upper extremities Diet Pt previously on pureed diet with thin liquids Has been switched to peripheral parenteral nutrition due to continued aspiration Continue PPN for now; speech and swallow eval recommended NPO diet for now Consult general surgery about PEG tube Code status Pt has court-appointed guardian Currently full code, though currently attempting to have him switched to DNR/DNI Epilepsy Continue valproic acid and levetiracetam Continue lamotrigine and felbamate when able Hypothyroidism Continue levothyroxine when able Mood disorder Continue home mood stabilizers once able HLD Continue aspirin and statin once able Pt requires continued hospitalization for treatment with IV abx, PPN, and supplemental O2; possible PEG tube placement. Quality Stroke Does the patient have a stroke diagnosis?: No VTE Prior VTE?: No VTE Risk Level:: Medical - moderate - high VTE Device Contraindication: N/A - Device Ordered VTE Drug Contraindication: N/A - Med Ordered
[2025-02-01] MEDS: Parenteral Nutrition 2,280 ML 95 ML IV (21:30)
[2025-02-02] VITALS (11 sets, daily range): BP systolic 104–145; BP diastolic 52–67; PULSE 69–81; RESP 16–22; TEMP 37.6–38.2; O2SAT 92–99; BMI 25.9
[2025-02-02 06:55] LABS: Hematocrit 31.8 % (42.0-52.0); Hemoglobin 10.9 g/dl (14.0-18.0); Mean Corpuscular HGB Conc 34.3 g/dl (31.0-36.0); Mean Corpuscular Hemoglobin 29.1 pg (27.0-33.0); Mean Corpuscular Volume 85.0 fL (80.0-98.0); NRBC Abs Auto 0.000 X10*3/uL (0.0-0.012); NRBC Pct Auto 0.0 /100WBC (0.0-0.2); Platelet Count 333 X10*3/uL (160-400); Red Blood Count 3.74 X10*6/uL (4.60-5.80); White Blood Count 5.4 X10*3/uL (4.8-10.8)
[2025-02-02 07:04] LABS: Alanine Aminotransferase 51 U/L (0-40); Albumin Level 3.8 g/dL (3.5-5.0); Alkaline Phosphatase 36 U/L (39-117); Anion Gap 10 (12-20); Aspartate Amino Transferase 56 U/L (5-37); Blood Urea Nitrogen 11 mg/dL (9-16); Calcium 9.8 mg/dL (8.4-10.2); Carbon Dioxide 29 mmol/L (22-29); Chloride 99 mmol/L (96-108); Creatinine Clr Calc Pharmacy 192.5; Estimated Glomerular Filt Rate > 60; Magnesium 2.0 mg/dL (1.6-2.6); Potassium 4.4 mmol/L (3.3-5.1); Sodium 134 mmol/L (135-145); Total Protein 6.9 g/dL (6.5-8.0)
[2025-02-02] MEDS: Albuterol/Iprat 2.5/0.5MG 3 ML AMPUL.NEB INHALE ×4 (07:38→18:51)
[2025-02-02] MEDS: Acetylcysteine 10 % 400 MG/4 ML VIAL INHALE ×2 (07:38→18:51)
--- NOTE | 2025-02-02 09:51 | P.CONGS_ITS ---
History of Present Illness Consult details Consult date: 02/02/25 <Wanda Travis PA-C - Last Filed: 02/02/25 10:09> Requesting physician: Cali Thompson <Wanda Travis PA-C - Last Filed: 02/02/25 10:09> Narrative: 59-year-old male with PMH of history of Parkinson's disease, nonverbal, bed-bound, Nadeau-Gastaut syndrome with status epilepticus, aspiration pneumonia, constipation, TIA, hyperlipidemia, proptosis, hypothyroidism who was initially brought in to the ED from his snf for evaluation of a cough. CXR showed bilateral patchy pneumonia worse on the left lung. He was admitted for further treatment of acute hypoxic respiratory failure, sepsis in the setting of aspiration pneumonia. He was started on IV zosyn. He required pressor support at admission and was transferred ICU for further care on BiPAP. He has been transitioned to an oxymask and transferred to the medical/telemetry floor. Positive for rhinovirus. General surgery was consulted for PEG tube placement. No abdominal surgery noted in history. <Wanda Travis PA-C - Last Filed: 02/02/25 10:09> Review of Systems 2 Review of Systems: Yes Unobtainable due to mental condition <Wanda Travis PA-C - Last Filed: 02/02/25 10:09> PMFSH Past Medical History Medical History: Medical History Fever Epileptic seizure Depression Generalized anxiety disorder Ganglion cyst Aspiration pneumonia Parkinson disease Dysphagia Anxiety Constipation TIA (transient ischemic attack) Hyperlipidemia Glaucoma Hyperopia of left eye Proptosis Aphakia, both eyes Osteopenia Hypothyroidism Manjinder-Gastaut syndrome, intractable, with status epilepticus <JADE Wilson Last Filed: 02/02/25 10:09> Family History Family history: reviewed and not pertinent <JADE Wilson Last Filed: 02/02/25 10:09> Social History Social History: Social History Household Members: Other Household Members Other:: snf members Housing: Other Housing Other:: snf Do you presently have visiting nurse or other home services: No Unable to assess alcohol history related to: Unknown Comment: snf member in place Patient Tobacco Use Status: Never used Tobacco Smoked in Last 30 Days: No e-Cigarette/Vaping Use: Never Used Second Hand Smoke Exposure: No Use of substances other than those prescribed or required for medical reasons: No Currently Displaying Signs/Symptoms of Drug Intoxication Withdrawal: No Advance Directives: Yes Advance Directives on File: Yes Advance Directives Date on File: 04/01/22 Do you have a plan to hurt others: No Plan Recently lost weight without trying: No Eating poorly because of decreased appetite: No Nutrition Risks: No Nutritional Risk service: No <Wanda Travis PA-C - Last Filed: 02/02/25 10:09> Meds Allergies/Adverse reactions: Allergies Allergy/AdvReac Type Severity Reaction Status Date / Time erythromycin base Allergy Unknown HIVES Verified 01/26/25 23:35 (ERYTHROMYCIN BASE) gentamicin (GENTAMICIN) Allergy Unknown UNKNOWN Verified 01/26/25 23:35 Macrolide Antibiotics Allergy Unknown UNKNOWN Verified 01/26/25 23:35 (MACROLIDE ANTIBIOTICS) KETOLIDES Allergy Unknown UNKNOWN Uncoded 01/26/25 23:35 <Wanda Travis PA-C - Last Filed: 02/02/25 10:09> Active Medications: Current Medications Acetaminophen (Acetaminophen Supp 650 Mg Supp.Rect) 650 mg UT Q6H PRN PRN Reason: Fever Last Admin: 02/01/25 19:58 Dose: 650 mg Acetylcysteine (Acetylcysteine 10 % 400 Mg/4 Ml Vial) 400 mg INHALE RBID [facility] Last Admin: 02/02/25 07:38 Dose: 400 mg Albuterol Sulfate (Albuterol Sulfate (0.083%) 2.5 Mg/3 Ml Vial.Neb) 2.5 mg INHALE Q3H PRN PRN Reason: sob Last Admin: 01/29/25 02:50 Dose: 2.5 mg Albuterol/Ipratropium (Albuterol/Iprat 2.5/0.5mg 3 Ml Ampul.Neb) 3 ml INHALE RQ4H WHILE AWAKE [facility] Last Admin: 02/02/25 07:38 Dose: 3 ml Enoxaparin Sodium (Enoxaparin Sodium 40 Mg/0.4 Ml Syringe) 40 mg SUBCUT Q24H [facility] Last Admin: 02/01/25 09:04 Dose: 40 mg Levetiracetam (Keppra) 500 mg in 100 mls @ 400 mls/hr IV Q12H [facility] Last Infusion: 02/01/25 22:28 Dose: Infused Valproic Acid 500 mg/ Dextrose 55 mls @ 55 mls/hr IV BID [facility] Last Infusion: 02/01/25 23:15 Dose: Infused Nutrition (Parenteral) (Parenteral Nutrition) 2,280 mls @ 95 mls/hr IV .Q24H [facility]; Protocol Stop: 02/02/25 20:59 Last Admin: 02/01/25 21:30 Dose: 95 mls/hr Piperacillin Sod/Tazobactam (Sod 3.375 gm/ Sodium Chloride) 50 mls @ 100 mls/hr IV Q6H [facility] Last Infusion: 02/02/25 06:26 Dose: Infused Vancomycin HCl 1,000 mg/ (Sodium Chloride) 270 mls @ 270 mls/hr IV Q8H [facility] Levothyroxine Sodium (Levothyroxine Sodium 100 Mcg/5 Ml Vial) 75 mcg IVPUSH DAILY@0600 [facility] Last Admin: 02/02/25 05:56 Dose: 75 mcg Pantoprazole Sodium (Pantoprazole Sodium 40 Mg/10 Ml Vial) 40 mg IVPUSH DAILY@0630 [facility] Last Admin: 02/02/25 05:56 Dose: 40 mg Pharmacy Consult (Consult Rx Parenteral Nutrition Ordering) 1 each MISCELLANE DAILY PRN PRN Reason: Consult order Pharmacy Consult (Consult Rx Vancomycin Dosing) 1 each MISCELLANE DAILY PRN PRN Reason: Consult order Sodium Chloride (0.9 % Sodium Chloride Flush 3 Ml Syringe) 3 ml IVFLUSH QSHIFT [facility] Last Admin: 02/01/25 19:59 Dose: 3 ml <Wanda Travis PA-C - Last Filed: 02/02/25 10:09> Home medications: Home Medications ?Medication ?Instructions ?Recorded ?Confirmed ?Last Taken ?Type acetaminophen 325 mg tablet 650 mg PO Q6H PRN Fever Or Pain 04/01/23 01/27/25 12/16/23 History cholecalciferol (vitamin D3) 1,250 1,250 mcg PO WE@090 0 04/01/23 01/27/25 01/20/25 History mcg (50,000 unit) capsule clonazepam 0.5 mg tablet 0.25 mg PO BID@0800,1200 08/2301/27/25 01/26/25 History clonazepam 0.5 mg tablet 0.5 mg PO BEDTIME 04/01/23 0 01/27/25 01/26/25 History divalproex 125 mg capsule,delayed 500 mg PO TID 01/27/25 01/26/25 History release sprinkle (Depakote Sprinkles) felbamate 400 mg tablet 800 mg PO TID 04/01/2301/2701/26/25 History levetiracetam 500 mg tablet 1,000 mg PO TID 04/01/23 0 01/27/25 01/26/25 History levothyroxine 88 mcg tablet 88 mcg PO DAILY@0600 04/0101/27/25 01/26/25 History sertraline 50 mg tablet 50 mg PO BEDTIME 04/01/2301/26/25 History simvastatin 40 mg tablet 40 mg PO BEDTIME 04/01/2301/26/25 History zinc oxide 13 % topical cream 1 appl topical TID PRN R daisy 04/01/23 01/27/25 Unknown History (Desitin Daily Defense) bisacodyl 10 mg rectal suppository 10 mg UT DAILY PRN Constipation 06/08/23 01/27/25 Unknown History (OneLAX Bisacodyl) guaifenesin 100 mg/5 mL oral liquid 200 mg PO Q6H PRN Cough 06/08/23 01/27/25 Unknown History magnesium hydroxide 400 mg/5 mL 30 ml PO Q OTHER DAY C onstipation 06/08/23 01/27/25 12/16/23 History oral suspension (Milk of Magnesia) polyethylene glycol 3350 17 17 g PO DAILY 06/08/2301/26/25 History gram/dose oral powder sodium phosphates 19 gram-7 118 ml UT DAILY PRN Consti pation 06/08/23 01/27/25 Unknown History gram/118 mL enema (Enema Disposable) aspirin 81 mg chewable tablet 81 mg PO DAILY@0800 06/02/2101/27/25 01/26/25 History bacitracin 500 unit/gram topical 1 appl topical BID UT N wounds 12/17/23 01/27/25 Unknown History ointment docusate sodium 50 mg/5 mL oral 100 mg PO DAILY@0800 0 12/17/23 01/27/25 01/26/25 History liquid midazolam 5 mg/spray (0.1 mL) 5 mg intranasal Q10M PRN Seizures 12/17/23 01/27/25 01/26/25 History nasal spray (Nayzilam) therapeutic multivitamin 1 tab PO DAILY 01/27/25 07/01/26/25 History white petrolatum-mineral oil 57.3 1 appl ophthalmic (e ye) BEDTIME 01/27/25 01/27/25 01/26/25 History %-42.5 % eye ointment (Refresh P.M.) <JADE Wilson Last Filed: 02/02/25 10:09> Physical Exam 2 Vital Signs: Vital Signs: Last Vital Signs Temp 100.1 F 02/02/25 07:17 Pulse 76 02/02/25 07:42 Resp 22 H 02/02/25 07:42 BP 131/63 02/02/25 07:17 Pulse Ox 99 02/02/25 07:17 O2 Del Method Oxymask 02/02/25 07:17 O2 Flow Rate 4 02/02/25 07:17 BMI result Body Mass Index 25.9 <JADE Wilson Last Filed: 02/02/25 10:09> Const: General: comfortable, no acute distress and alert <JADE Wilson Last Filed: 02/02/25 10:09> Resp: Effort & Inspection: normal respiratory effort, not labored, no respiratory distress, tachypneic and no use of accessory muscles <JADE Wilson Last Filed: 02/02/25 10:09> GI: Other: mildly protuberant abdomen <JADE Wilson Last Filed: 02/02/25 10:09> Inspection: No distended, No scar and No visible herniation <JADE Wilson Last Filed: 02/02/25 10:09> Palpation (GI): Soft to palpation, no guarding and not rigid <JADE Wilson Last Filed: 02/02/25 10:09> Percussion: Yes normal to percussion <AJDE Wilson Last Filed: 02/02/25 10:09> Results Labs Result diagrams: 02/02/25 06:06 02/02/25 06:06 <JADE Wilson Last Filed: 02/02/25 10:09> Labs: Abnormal lab results 02/02/25 Range/Units 06:06 RBC 3.74 L (4.60-5.80) X10*6/uL Hgb 10.9 L (14.0-18.0) g/dl Hct 31.8 L (42.0-52.0) % Sodium 134 L (135-145) mmol/L Anion Gap 10 L (12-20) Creatinine 0.44 L (0.5-1.4) mg/dL Random Glucose 124 H (60-115) mg/dL Phosphorus 4.6 H (2.7-4.5) mg/dL AST 56 H (5-37) U/L ALT 51 H (0-40) U/L Alkaline Phosphatase 36 L (39-117) U/L Vancomycin Trough 20.7 H (10.0-20.0) mcg/mL Short CBC 02/02/25 Range/Units 06:06 WBC 5.4 (4.8-10.8) X10*3/uL Hgb 10.9 L (14.0-18.0) g/dl Hct 31.8 L (42.0-52.0) % Plt Count 333 D (160-400) X10*3/uL BMP 02/02/25 06:06 Sodium 134 L Potassium 4.4 Chloride 99 Carbon Dioxide 29 BUN 11 Creatinine 0.44 L Calcium 9.8 Liver Function 02/02/25 Range/Units 06:06 Total Bilirubin 0.5 (0.0-1.0) mg/dL AST 56 H (5-37) U/L ALT 51 H (0-40) U/L Alkaline Phosphatase 36 L (39-117) U/L Albumin 3.8 (3.5-5.0) g/dL Urine 08/03/25 Range/Units 09:22 Urine Color Yellow Urine Appearance Clear Urine pH 7.5 (5.0-9.0) Ur Specific [place] 1.020 (1.005-1.025) Urine Protein Negative (Neg-Trace) mg/dL Urine Glucose (UA) Negative (Negative) mg/dL All other labs normal. <Wanda Travis PA-C - Last Filed: 02/02/25 10:09> Assessment and Plan (1) Recurrent aspiration pneumonia: Status: Acute <Wanda Travis PA-C - Last Filed: 02/02/25 10:09> 59-year-old male with Parkinson's disease, Nadeau-Gastaut syndrome, nonverbal, with aspiration pneumonia Referred to us for PEG tube placement Patient is on O2 supplement appears a little short of breath currently Abdomen soft, with no obvious surgical scars Old CAT scan of abdomen reviewed - the stomach appears to be high up in the upper abdomen but likely to have a good window to access the anterior stomach wall We will schedule for PEG tube placement once respiratory as this is improved We will discuss with healthcare proxy I have seen and examined the patient independently <Hardy Hoover MD - Last Filed: 02/02/25 11:35> (2) Acute hypoxemic respiratory failure: Status: Acute <Wanda Travis PA-C - Last Filed: 02/02/25 10:09> 59-year-old male with PMH of history of Parkinson's disease, nonverbal, bed-bound, Nadeau-Gastaut syndrome with status epilepticus, aspiration pneumonia, constipation, TIA, hyperlipidemia, proptosis, hypothyroidism admitted for acute hypoxic respiratory failure, sepsis in the setting of aspiration pneumonia. PEG tube placement has been requested. Past CT scan abd/pelvis from 2022 reviewed- stomach is high however likely good window able to be obtained with insufflation. No known past abdominal surgery and no surgical scars visible on abdomen on exam. Appears amenable to PEG tube placement. He is currently febrile, on oxymask and tachypneic. Will await until he is more medically stable to add him onto the OR schedule. Procedure to be discussed with health care proxy. <Wanda Travis PA-C - Last Filed: 02/02/25 10:09> Procedures Date of Service Date of Service: 02/02/25 <Wanda Travis PA-C - Last Filed: 02/02/25 10:09> 02/02/25 <Hardy Hoover MD - Last Filed: 02/02/25 11:35>
[2025-02-02] MEDS: levETIRAcetam in NaCl (iso-os) 500 MG/100 ML PIGGYBACK 400 MG IV ×2 (09:58→21:12)
[2025-02-02] MEDS: 0.9 % Sodium Chloride Flush 3 ML SYRINGE IVFLUSH ×2 (10:05→20:41)
[2025-02-02] MEDS: Valproic Acid (as Sodium Salt) 500 MG in Dextrose 5 % 50 ML 55 MG IV ×2 (10:23→20:38)
[2025-02-02 10:42] LABS: MRSA Nasal PCR NEGATIVE (Negative); SA Nasal PCR NEGATIVE (Negative)
--- NOTE | 2025-02-02 10:43 | MHC.CLN ---
F/U PT REMAINS NPO REVIEWED LABS DISCUSSED WITH PHARMACY CONTINUE PPN AT MAX GOAL RATE OF 95 ML/HR WITH 79G LIPIDS TO PROVIDE 1953 TOTAL KCALS (25KCALS/KG BASED ON IBW), 228G DEXTROSE, 97G PROTEIN (1.2G/KG) REPLETE LYTES NEEDED
--- NOTE | 2025-02-02 13:41 | MHC.CM.PN ---
DUANE received a call from Bessie [employer] ([phone]) requesting a team meeting with the Provider tomorrow at 3:30 PM. The Provider today will not be here tomorrow; CM will check with new Provider in the morning to confirm that this meeting time will work for him/her. CM will follow.
--- NOTE | 2025-02-02 13:44 | MHC.SLORD ---
Speech Language Pathology Order Status: Per nursing, pt not appropriate for PO trials. Pt to be re-evaluated by COLOR REPAIRER tomorrow.
--- NOTE | 2025-02-02 13:51 | P.PNIM_ITS ---
Subjective Subjective Date of Service: 02/02/25 Interval History: Pt seen and examined resting comfortably in bed Continues to have fevers up to 102 Less agitation and restlessness Continues to require supplemental oxygen Coarse breathing and wet sounding cough Review of Systems Review of Systems: Yes Unobtainable due to mental status Physical Exam 2 Exam: Exam: General: Awake and alert, no acute distress. Resting comfortably in bed; non- verbal. In soft restraints for upper extremities Resp: Bilateral rhonchi CVS: S1, S2, RRR GI: +BS, NT, no distention Skin: Warm, dry Neuro: Motor grossly intact bilaterally Extremities: No edema. Heels offloaded in boots Psych: Nonverbal; agitated when touched Vital Signs: Vital Signs: Last Vital Signs Temp 100.7 F H 02/02/25 11:10 Pulse 76 02/02/25 11:42 Resp 20 02/02/25 11:42 BP 119/61 02/02/25 11:10 Pulse Ox 94 02/02/25 11:10 O2 Del Method Oxymask 02/02/25 11:10 O2 Flow Rate 3 02/02/25 11:10 BMI result Body Mass Index 25.9 Objective Data Active Medications Acetaminophen (Acetaminophen Supp 650 Mg Supp.Rect) 650 mg NC Q6H PRN PRN Reason: Fever Last Admin: 02/01/25 19:58 Dose: 650 mg Documented By: ZULLY Acetylcysteine (Acetylcysteine 10 % 400 Mg/4 Ml Vial) 400 mg INHALE RBID [facility] Last Admin: 02/02/25 07:38 Dose: 400 mg Documented By: ANTONIETA Albuterol Sulfate (Albuterol Sulfate (0.083%) 2.5 Mg/3 Ml Vial.Neb) 2.5 mg INHALE Q3H PRN PRN Reason: sob Last Admin: 01/29/25 02:50 Dose: 2.5 mg Documented By: MICHAEL Albuterol/Ipratropium (Albuterol/Iprat 2.5/0.5mg 3 Ml Ampul.Neb) 3 ml INHALE RQ4H WHILE AWAKE [facility] Last Admin: 02/02/25 11:40 Dose: 3 ml Documented By: ANTONIETA Enoxaparin Sodium (Enoxaparin Sodium 40 Mg/0.4 Ml Syringe) 40 mg SUBCUT Q24H [facility] Last Admin: 02/02/25 10:04 Dose: 40 mg Documented By: IVORY Levetiracetam (Keppra) 500 mg in 100 mls @ 400 mls/hr IV Q12H [facility] Last Infusion: 02/02/25 10:45 Dose: Infused Documented By: IVORY Valproic Acid 500 mg/ Dextrose 55 mls @ 55 mls/hr IV BID [facility] Last Infusion: 02/02/25 12:05 Dose: Infused Documented By: IVORY Nutrition (Parenteral) (Parenteral Nutrition) 2,280 mls @ 95 mls/hr IV .Q24H [facility]; Protocol Stop: 02/02/25 20:59 Last Admin: 02/01/25 21:30 Dose: 95 mls/hr Documented By: ZULLY Piperacillin Sod/Tazobactam (Sod 3.375 gm/ Sodium Chloride) 50 mls @ 100 mls/hr IV Q6H [facility] Last Admin: 02/02/25 12:55 Dose: 100 mls/hr Documented By: IVORY Nutrition (Parenteral) (Parenteral Nutrition) 2,280 mls @ 95 mls/hr IV .Q24H [facility]; Protocol Stop: 02/03/25 20:59 Doxycycline Hyclate 100 mg/ (Sodium Chloride) 250 mls @ 166.67 mls/hr IV Q12H [facility] Levothyroxine Sodium (Levothyroxine Sodium 100 Mcg/5 Ml Vial) 75 mcg IVPUSH DAILY@0600 [facility] Last Admin: 02/02/25 05:56 Dose: 75 mcg Documented By: ZULLY Pantoprazole Sodium (Pantoprazole Sodium 40 Mg/10 Ml Vial) 40 mg IVPUSH DAILY@0630 [facility] Last Admin: 02/02/25 05:56 Dose: 40 mg Documented By: ZULLY Pharmacy Consult (Consult Rx Parenteral Nutrition Ordering) 1 each MISCELLANE DAILY PRN PRN Reason: Consult order Sodium Chloride (0.9 % Sodium Chloride Flush 3 Ml Syringe) 3 ml IVFLUSH QSHIFT [facility] Last Admin: 02/02/25 10:05 Dose: 3 ml Documented By: IVORY Labs 02/02/25 06:06 02/02/25 06:06 Labs: Laboratory Results - last 24 hr 02/01/25 02/02/25 22:15 06:06 MCV 85.0 MCH 29.1 MCHC 34.3 RDW 13.1 Plt Count 333 D MPV 9.9 Absolute Nucleated RBC 0.000 Nucleated RBC % (auto) 0.0 Anion Gap 10 L Estim Creat Clear Calc 192.5 Estimated GFR > 60 Random Glucose 124 H Calcium 9.8 Phosphorus 4.6 H Magnesium 2.0 Total Bilirubin 0.5 AST 56 H ALT 51 H Alkaline Phosphatase 36 L Total Protein 6.9 Albumin 3.8 Nasal Screen MRSA (PCR) NEGATIVE Nasal S. aureus Screen NEGATIVE Nasal MRSA/S.aureus Interp SEE NOTE Vancomycin Trough 20.7 H Microbiology Microbiology Results: Microbiology 01/31/25 09:22 Urine Culture - Final Urine Catheterized - Straight Catheter No growth. 01/31/25 01:49 Blood Culture - Preliminary Blood - Venous No growth after 48 hours. 01/31/25 01:49 Blood Culture - Preliminary Blood - Venous No growth after 48 hours. Assessment and Plan (1) Recurrent aspiration pneumonia: Status: Acute (2) Acute hypoxemic respiratory failure: Status: Acute Plan Pt initially admitted to the ICU for acute hypoxic respiratory failure and acute metabolic encephalopathy in the setting of aspiration pneumonia. Pt was treated with Zosyn and BiPAP, eventually weaned to OxyMask 8 L. Acute metabolic encephalopathy in the setting of aspiration pneumonia with sepsis Originally admitted to ICU on BiPAP, then weaned to OxyMask 8 L Treated with Zosyn, day 6; Vanco added due to intermittent fevers, MRSA swab negative, will d/c and switch to Doxy 100 bid Blood cultures negative after 48 hours; new blood cultures negative after 48 hours Sputum culture negative; tested positive for rhinovirus Seen by ID: continue abx for a total of 8 days if still on O2 CT of chest showing bilateral multifocal pneumonia and bilateral pleural effusions with airspace disease most advanced in right upper lobe Titrate supplemental O2 >92, wean as tolerated Agitation Pt has been on soft restraints on upper extremities due to continually attempting to remove IVs, supplemental O2 Currently less agitation; currently not restrained Diet Pt previously on pureed diet with thin liquids Has been switched to peripheral parenteral nutrition due to continued aspiration Continue PPN for now; speech and swallow eval recommended NPO diet for now General surgery consulted about PEG tube; will wait for pneumonia resolution and guardian approval marketing compliance manager Bessie will have team meeting at bedside on Saturday at 3:30 for medical update about G-Tube Code status Pt has court-appointed guardian Currently full code, though currently attempting to have him switched to DNR/DNI Epilepsy Continue valproic acid and levetiracetam Continue lamotrigine and felbamate when able Hypothyroidism Continue levothyroxine when able Mood disorder Continue home mood stabilizers once able HLD Continue aspirin and statin once able Pt requires continued hospitalization for treatment with IV abx, PPN, and supplemental O2; possible PEG tube placement. Quality Stroke Does the patient have a stroke diagnosis?: No VTE Prior VTE?: No VTE Risk Level:: Medical - moderate - high VTE Device Contraindication: N/A - Device Ordered VTE Drug Contraindication: N/A - Med Ordered
[2025-02-02] MEDS: Acetaminophen Supp 650 MG SUPP.RECT PR (14:30)
--- NOTE | 2025-02-02 15:18 | HO.WOUND ---
Wound Consult: Initial 59yr old?male admitted to [facility] [place] on 01/27/25 - See progress notes and H&P for detailed history.? Wound consult placed for sacrum.? 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 He reports the sacral injury is from some time ago unable to tell me when but that at his home they treat daily with A&D ointment. Tissue detailed below but is intact and no injury noted at this time - evidence of prior injury noted. Of importance prior pressure injury with full thickness depth changes the tensile strength of the tissue making it more susceptible to pressure injury development in the future. All pressure relief measures should be employed. Sacrum Etiology: intact tissue - no PI at this time Wound Bed: intact hyperpigmented tissue Drainage / Odor: None Edges: ? well defined Nai wound: ?intact No Induration, Fluctuance or Warmth noted Goals of Treatment: ? off load pressure and barrier cream to protect from moisture and friction Recommendations: 1. Turn and Reposition every 2 hours and as needed for patient comfort.? Use pillows or wedges to support off loading positions. 2. Off Load all bony prominences with use of pillows and heel boots if needed.? Apply Preventative foams where needed. ? 3. Monitor for incontinence and moisture control, use barrier creams when needed for prevention and treatment. 4. Provide adequate and supplemental nutrition.? 5. Order low air loss mattress. 6. When applicable maintain blood glucose levels per Providers order. Sacrum? - Off Load Pressure with Q2 hr turns and use of pillows - Routine cleansing.? Apply skin prep allow to dry.? Cover with foam dressing to aid in off loading and protection from friction. Change every 3 days and PRN. Re-consult wound care Nurse for wound deterioration or wound changes.
--- NOTE | 2025-02-02 18:39 | PC.NURSE ---
soft restraints removed at [address] scan. upon return from ct, patient remains calm and cooperative. restraints kept off of patient at this time. Provider aware
--- NOTE | 2025-02-02 19:53 | P.CDIM_ITS ---
PROVIDER RESPONSE TEXT: To clarify, the appropriate diagnosis supported by the clinical indicators: Pressure (decubitus) ulcer stage 2 left buttock QUERY TEXT: PHYSICIAN'S DOCUMENTATION REQUEST Date of Query: 02/01/2025 08:09 AM EDT Patient Name: Rico Chin Admit Date: 01/27/2025 Dear Cali NEGRETE, A review of the medical record indicates additional documentation may be needed. Please review below and update the documentation accordingly. Clinical Indicators: per nursing pressure injury assessment 01/31/25: DTI left buttock on 01/27/25 stage 2 wound left buttock on 01/30/25 foam dressing no wound consult Based on the above, could you please provide further information regarding the ulcer/wound: Pressure (decubitus) ulcer stage 2 left buttock DTI left buttock, present on admission Other (explain) Clinically unable to determine (explain) Thank you, Jennifer Lr RN Use of terms such as suspected, likely, concern for, or probable (associated with a specific diagnosis that is being evaluated, monitored, or treated as if it exists) are acceptable and can be coded in the inpatient setting, when documented at the time of discharge. Please use your independent medical judgment in providing your response. THIS QUERY IS PART OF THE PERMANENT MEDICAL RECORD
[2025-02-02] MEDS: Parenteral Nutrition 2,280 ML 95 ML IV (21:30)
[2025-02-03] VITALS (9 sets, daily range): BP systolic 107–147; BP diastolic 53–82; PULSE 56–86; RESP 18–20; TEMP 36.4–37.2; O2SAT 91–99; BMI 26.0
[2025-02-03] MEDS: Acetylcysteine 10 % 400 MG/4 ML VIAL INHALE ×2 (07:29→19:15)
[2025-02-03] MEDS: Albuterol/Iprat 2.5/0.5MG 3 ML AMPUL.NEB INHALE ×4 (07:29→19:15)
--- NOTE | 2025-02-03 07:50 | PM.PNGS ---
Subjective Subjective Date of Service: 02/03/25 Interval history: No events reported Now on O2 by nasal cannula Physical Exam Vital Signs: Vital Signs: Last Vital Signs Temp 98.0 F 02/03/25 07:02 Pulse 76 02/03/25 07:33 Resp 18 02/03/25 07:33 BP 107/53 L 02/03/25 07:02 Pulse Ox 98 02/03/25 07:02 O2 Del Method Nasal Cannula 02/03/25 07:02 O2 Flow Rate 4 02/03/25 07:02 BMI result Body Mass Index 26.0 Const: Other: Appears comfortable, mildly short of breath Resp: Other: Mildly short of breath Cardio: Rate: regular rate GI: Palpation (GI): Soft to palpation, not firm and nontender Objective Data Active Medications Acetaminophen (Acetaminophen Supp 650 Mg Supp.Rect) 650 mg [place] Q6H PRN PRN Reason: Fever Last Admin: 02/02/25 14:30 Dose: 650 mg Documented By: IVORY Acetylcysteine (Acetylcysteine 10 % 400 Mg/4 Ml Vial) 400 mg INHALE RBID [facility] Last Admin: 02/03/25 07:29 Dose: 400 mg Documented By: JAH Albuterol Sulfate (Albuterol Sulfate (0.083%) 2.5 Mg/3 Ml Vial.Neb) 2.5 mg INHALE Q3H PRN PRN Reason: sob Last Admin: 01/29/25 02:50 Dose: 2.5 mg Documented By: MICHAEL Albuterol/Ipratropium (Albuterol/Iprat 2.5/0.5mg 3 Ml Ampul.Neb) 3 ml INHALE RQ4H WHILE AWAKE [facility] Last Admin: 02/03/25 07:29 Dose: 3 ml Documented By: JAH Enoxaparin Sodium (Enoxaparin Sodium 40 Mg/0.4 Ml Syringe) 40 mg SUBCUT Q24H [facility] Last Admin: 02/02/25 10:04 Dose: 40 mg Documented By: IVORY Levetiracetam (Keppra) 500 mg in 100 mls @ 400 mls/hr IV Q12H [facility] Last Infusion: 02/02/25 21:27 Dose: Infused Documented By: ZULLY Valproic Acid 500 mg/ Dextrose 55 mls @ 55 mls/hr IV BID [facility] Last Infusion: 02/02/25 21:38 Dose: Infused Documented By: ZULLY Nutrition (Parenteral) (Parenteral Nutrition) 2,280 mls @ 95 mls/hr IV .Q24H [facility]; Protocol Stop: 02/03/25 20:59 Last Admin: 02/02/25 21:30 Dose: 95 mls/hr Documented By: ZULLY Doxycycline Hyclate 100 mg/ (Sodium Chloride) 250 mls @ 166.67 mls/hr IV Q12H [facility] Piperacillin Sod/Tazobactam (Sod 3.375 gm/ Sodium Chloride) 50 mls @ 100 mls/hr IV Q6H [facility] Levothyroxine Sodium (Levothyroxine Sodium 100 Mcg/5 Ml Vial) 50 mcg IVPUSH DAILY@0600 [facility] Pantoprazole Sodium (Pantoprazole Sodium 40 Mg/10 Ml Vial) 40 mg IVPUSH DAILY@0630 [facility] Last Admin: 02/03/25 06:12 Dose: 40 mg Documented By: ZULLY Pharmacy Consult (Consult Rx Parenteral Nutrition Ordering) 1 each MISCELLANE DAILY PRN PRN Reason: Consult order Sodium Chloride (0.9 % Sodium Chloride Flush 3 Ml Syringe) 3 ml IVFLUSH QSHIFT [facility] Last Admin: 02/02/25 20:41 Dose: 3 ml Documented By: ZULLY Labs 02/02/25 06:06 02/02/25 06:06 Labs: Laboratory Results - last 24 hr 02/01/25 02/03/25 22:15 06:56 Hold Purple Top SEE NOTE Nasal Screen MRSA (PCR) NEGATIVE Nasal S. aureus Screen NEGATIVE Nasal MRSA/S.aureus Interp SEE NOTE Microbiology Microbiology Results: Microbiology 01/31/25 09:22 Urine Culture - Final Urine Catheterized - Straight Catheter No growth. 01/31/25 01:49 Blood Culture - Preliminary Blood - Venous No growth after 48 hours. 01/31/25 01:49 Blood Culture - Preliminary Blood - Venous No growth after 48 hours. Procedures Date of Service Date of Service: 02/03/25 Progress Note: A&P Assessment and plan (1) Aspiration pneumonia: Status: Acute Assessment and Plan: According to caregiver at bedside, this is the 1st time that the patient had aspirated She stated that if possible, she felt it would be best to hold off on peg tube as the patient enjoys eating? she stated that she would like him to have a trial of oral intake again Patient still remains on O2 although better We will continue to follow Time Spent With Patient Time: Total time managing care of this patient today ____ minutes. Quality Stroke Does the patient have a stroke diagnosis?: No VTE Prior VTE?: No VTE Risk Level:: Medical - moderate - high VTE Device Contraindication: N/A - Device Ordered VTE Drug Contraindication: N/A - Med Ordered
[2025-02-03 08:07] LABS: Alanine Aminotransferase 36 U/L (0-40); Albumin Level 3.9 g/dL (3.5-5.0); Alkaline Phosphatase 34 U/L (39-117); Anion Gap 13 (12-20); Aspartate Amino Transferase 42 U/L (5-37); Blood Urea Nitrogen 13 mg/dL (9-16); Calcium 9.9 mg/dL (8.4-10.2); Carbon Dioxide 27 mmol/L (22-29); Chloride 99 mmol/L (96-108); Creatinine Clr Calc Pharmacy 180.2; Estimated Glomerular Filt Rate > 60; Magnesium 2.0 mg/dL (1.6-2.6); Potassium 4.6 mmol/L (3.3-5.1); Sodium 134 mmol/L (135-145); Total Protein 6.9 g/dL (6.5-8.0)
[2025-02-03 08:22] LABS: Procalcitonin 0.05 ng/mL
--- NOTE | 2025-02-03 08:54 | MHC.CM.PN ---
Addendum entered by Vinita Singh 02/03/25 13:00: Today's scheduled meeting will be rescheduled once MD has results of MBS. Original Note: Today's Provider is agreeable to meet with Residential staff and Guardian today at 3:30 PM, at bedside; CM left a detailed message for Bessie from S at [phone], confirming today's meeting.
[2025-02-03] MEDS: levETIRAcetam in NaCl (iso-os) 500 MG/100 ML PIGGYBACK 400 MG IV ×2 (09:27→20:38)
[2025-02-03] MEDS: Valproic Acid (as Sodium Salt) 500 MG in Dextrose 5 % 50 ML 55 MG IV ×2 (10:57→20:38)
--- NOTE | 2025-02-03 11:02 | MHC.CLN ---
F/U PT REMAINS NPO FAMILY DECLINING PEG TUBE PLACEMENT REVIEWED LABS DISCUSSED WITH PHARMACY CONTINUE PPN AT MAX GOAL RATE OF 95 ML/HR WITH 79G LIPIDS TO PROVIDE 1953 TOTAL KCALS (25KCALS/KG BASED ON IBW), 228G DEXTROSE, 97G PROTEIN (1.2G/KG) REPLETE LYTES NEEDED
--- NOTE | 2025-02-03 13:08 | P.CONPL_ITS ---
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 Patient remains at continues risk of recurrent pulmonary aspirations with resultant aspiration pneumonitis or pneumonia. Review of Systems 2 Review of Systems: Yes Unobtainable due to mental condition and Unobtainable due to mental status PMFSH Past Medical History Medical History Fever Epileptic seizure Depression Generalized anxiety disorder Ganglion cyst Aspiration pneumonia Parkinson disease Dysphagia Anxiety Constipation TIA (transient ischemic attack) Hyperlipidemia Glaucoma Hyperopia of left eye Proptosis Aphakia, both eyes Osteopenia Hypothyroidism Manjinder-Gastaut syndrome, intractable, with status epilepticus Family History Family history: reviewed and not pertinent Social History Social History Household Members: Other Household Members Other:: shelter members Housing: Other Housing Other:: shelter Do you presently have visiting nurse or other home services: No Unable to assess alcohol history related to: Unknown Comment: shelter member in place Patient Tobacco Use Status: Never used Tobacco Smoked in Last 30 Days: No e-Cigarette/Vaping Use: Never Used Second Hand Smoke Exposure: No Use of substances other than those prescribed or required for medical reasons: No Currently Displaying Signs/Symptoms of Drug Intoxication Withdrawal: No Advance Directives: Yes Advance Directives on File: Yes Advance Directives Date on File: 04/01/22 Do you have a plan to hurt others: No Plan Recently lost weight without trying: No Eating poorly because of decreased appetite: No Nutrition Risks: No Nutritional Risk service: No Meds Allergies Allergy/AdvReac Type Severity Reaction Status Date / Time erythromycin base Allergy Unknown HIVES Verified 01/26/25 23:35 (ERYTHROMYCIN BASE) gentamicin (GENTAMICIN) Allergy Unknown UNKNOWN Verified 01/26/25 23:35 Macrolide Antibiotics Allergy Unknown UNKNOWN Verified 01/26/25 23:35 (MACROLIDE ANTIBIOTICS) KETOLIDES Allergy Unknown UNKNOWN Uncoded 01/26/25 23:35 Active Medications: Current Medications Acetaminophen (Acetaminophen Supp 650 Mg Supp.Rect) 650 mg [place] Q6H PRN PRN Reason: Fever Last Admin: 02/02/25 14:30 Dose: 650 mg Acetylcysteine (Acetylcysteine 10 % 400 Mg/4 Ml Vial) 400 mg INHALE RBID [facility] Last Admin: 02/03/25 07:29 Dose: 400 mg Albuterol Sulfate (Albuterol Sulfate (0.083%) 2.5 Mg/3 Ml Vial.Neb) 2.5 mg INHALE Q3H PRN PRN Reason: sob Last Admin: 01/29/25 02:50 Dose: 2.5 mg Albuterol/Ipratropium (Albuterol/Iprat 2.5/0.5mg 3 Ml Ampul.Neb) 3 ml INHALE RQ4H WHILE AWAKE [facility] Last Admin: 02/03/25 11:30 Dose: 3 ml Enoxaparin Sodium (Enoxaparin Sodium 40 Mg/0.4 Ml Syringe) 40 mg SUBCUT Q24H [facility] Last Admin: 02/03/25 08:21 Dose: 40 mg Levetiracetam (Keppra) 500 mg in 100 mls @ 400 mls/hr IV Q12H [facility] Last Infusion: 02/03/25 10:58 Dose: Infused Valproic Acid 500 mg/ Dextrose 55 mls @ 55 mls/hr IV BID [facility] Last Infusion: 02/03/25 12:00 Dose: Infused Nutrition (Parenteral) (Parenteral Nutrition) 2,280 mls @ 95 mls/hr IV .Q24H [facility]; Protocol Stop: 02/03/25 20:59 Last Admin: 02/02/25 21:30 Dose: 95 mls/hr Doxycycline Hyclate 100 mg/ (Sodium Chloride) 250 mls @ 166.67 mls/hr IV Q12H [facility] Piperacillin Sod/Tazobactam (Sod 3.375 gm/ Sodium Chloride) 50 mls @ 100 mls/hr IV Q6H [facility] Last Infusion: 02/03/25 09:32 Dose: Infused Nutrition (Parenteral) (Parenteral Nutrition) 2,280 mls @ 95 mls/hr IV .Q24H [facility]; Protocol Stop: 02/04/25 20:59 Levothyroxine Sodium (Levothyroxine Sodium 100 Mcg/5 Ml Vial) 50 mcg IVPUSH DAILY@0600 [facility] Pantoprazole Sodium (Pantoprazole Sodium 40 Mg/10 Ml Vial) 40 mg IVPUSH DAILY@0630 [facility] Last Admin: 02/03/25 06:12 Dose: 40 mg Pharmacy Consult (Consult Rx Parenteral Nutrition Ordering) 1 each MISCELLANE DAILY PRN PRN Reason: Consult order Sodium Chloride (0.9 % Sodium Chloride Flush 3 Ml Syringe) 3 ml IVFLUSH QSHIFT [facility] Last Admin: 02/03/25 08:27 Dose: Not Given Home Medications ?Medication ?Instructions ?Recorded ?Confirmed ?Last Taken ?Type acetaminophen 325 mg tablet 650 mg PO Q6H PRN Fever Or Pain 04/01/23 01/27/25 12/16/23 History cholecalciferol (vitamin D3) 1,250 1,250 mcg PO WE@090 0 04/01/23 01/27/25 01/20/25 History mcg (50,000 unit) capsule clonazepam 0.5 mg tablet 0.25 mg PO BID@0800,1200 08/2301/27/25 01/26/25 History clonazepam 0.5 mg tablet 0.5 mg PO BEDTIME 04/01/23 0 01/27/25 01/26/25 History divalproex 125 mg capsule,delayed 500 mg PO TID 01/27/25 01/26/25 History release sprinkle (Depakote Sprinkles) felbamate 400 mg tablet 800 mg PO TID 04/01/2301/2701/26/25 History levetiracetam 500 mg tablet 1,000 mg PO TID 04/01/23 0 01/27/25 01/26/25 History levothyroxine 88 mcg tablet 88 mcg PO DAILY@0600 04/0101/27/25 01/26/25 History sertraline 50 mg tablet 50 mg PO BEDTIME 04/01/2301/26/25 History simvastatin 40 mg tablet 40 mg PO BEDTIME 04/01/2301/26/25 History zinc oxide 13 % topical cream 1 appl topical TID PRN R daisy 04/01/23 01/27/25 Unknown History (Desitin Daily Defense) bisacodyl 10 mg rectal suppository 10 mg [place] DAILY PRN Constipation 06/08/23 01/27/25 Unknown History (OneLAX Bisacodyl) guaifenesin 100 mg/5 mL oral liquid 200 mg PO Q6H PRN Cough 06/08/23 01/27/25 Unknown History magnesium hydroxide 400 mg/5 mL 30 ml PO Q OTHER DAY C onstipation 06/08/23 01/27/25 12/16/23 History oral suspension (Milk of Magnesia) polyethylene glycol 3350 17 17 g PO DAILY 06/08/2301/26/25 History gram/dose oral powder sodium phosphates 19 gram-7 118 ml [place]Y DAILY PRN Consti pation 06/08/23 01/27/25 Unknown History gram/118 mL enema (Enema Disposable) aspirin 81 mg chewable tablet 81 mg PO DAILY@0800 06/02/2101/27/25 01/26/25 History bacitracin 500 unit/gram topical 1 appl topical BID WY N wounds 12/17/23 01/27/25 Unknown History ointment docusate sodium 50 mg/5 mL oral 100 mg PO DAILY@0800 0 12/17/23 01/27/25 01/26/25 History liquid midazolam 5 mg/spray (0.1 mL) 5 mg intranasal Q10M PRN Seizures 12/17/23 01/27/25 01/26/25 History nasal spray (Nayzilam) therapeutic multivitamin 1 tab PO DAILY 01/27/2512/3101/26/25 History white petrolatum-mineral oil 57.3 1 appl ophthalmic (e ye) BEDTIME 01/27/25 01/27/25 01/26/25 History %-42.5 % eye ointment (Refresh P.M.) Physical Exam 2 Vital Signs: Vital Signs: Last Vital Signs Temp 97.5 F 02/03/25 11:19 Pulse 77 02/03/25 11:32 Resp 18 02/03/25 11:32 BP 133/64 02/03/25 11:19 Pulse Ox 94 02/03/25 11:19 O2 Del Method Nasal Cannula 02/03/25 11:19 O2 Flow Rate 4 02/03/25 11:19 BMI result Body Mass Index 26.0 Const: General: no acute distress and awake Eyes: Sclerae: sclerae normal Neck: Neck: Yes no lymphadenopathy, Yes trachea midline and Yes supple Resp: Effort & Inspection: normal respiratory effort Auscultation: crackles (Bibasilar) Cardio: Rate: regular rate Rhythm: regular rhythm Heart sounds: no gallops, no murmurs and no rubs GI: Palpation (GI): Soft to palpation and Other GI palpation findings present ( Nontender) Auscultation: normal bowel sounds Extrem: General: No clubbing and No cyanosis Results Laboratory Findings 02/02/25 06:06 02/03/25 06:56 Abnormal lab findings: Abnormal Labs 01/26/25 01/26/25 01/27/25 23:44 23:45 00:13 WBC RBC 4.31 L Hgb 12.9 L Hct 36.2 L Plt Count MPV 9.3 L Immature Gran % (Auto) 0.6 H Neut % (Auto) 75.5 H Lymph % (Auto) 11.6 L [place] % (Auto) 11.5 H Lymph # (Auto) 0.9 L [place] # (Auto) Abs Immat Gran (auto) 0.05 H Absolute Neuts (auto) VBG pH VBG HCO3 30 H Sodium 134 L Potassium Chloride Carbon Dioxide Anion Gap BUN Creatinine Random Glucose 141 H Lactic Acid 2.1 H* Phosphorus Magnesium AST ALT Alkaline Phosphatase Total Protein Vancomycin Trough Random Vancomycin Valproic Acid 114.9 H* Entero/Rhino (PCR) 01/27/25 01/27/25 01/28/25 03:05 04:00 04:19 WBC 12.2 H RBC 4.03 L 3.15 L D Hgb 11.9 L 9.3 L D Hct 33.8 L 27.0 L D Plt Count 142 L D MPV Immature Gran % (Auto) 0.5 H Neut % (Auto) 75.3 H 73.2 H Lymph % (Auto) 7.4 L 16.7 L [place] % (Auto) 16.4 H Lymph # (Auto) 0.9 L 0.9 L [place] # (Auto) 2.0 H Abs Immat Gran (auto) 0.06 H Absolute Neuts (auto) 9.2 H VBG pH VBG HCO3 Sodium 134 L Potassium 3.2 L Chloride Carbon Dioxide 30 H Anion Gap BUN 8 L Creatinine 0.49 L Random Glucose 149 H Lactic Acid Phosphorus 2.5 L Magnesium 1.5 L AST ALT Alkaline Phosphatase 27 L Total Protein Vancomycin Trough Random Vancomycin Valproic Acid Entero/Rhino (PCR) Detected A 01/28/25 01/29/25 01/29/25 04:23 05:28 05:34 WBC RBC 3.22 L Hgb 9.5 L Hct 27.1 L Plt Count 157 L MPV 9.2 L Immature Gran % (Auto) 0.5 H Neut % (Auto) Lymph % (Auto) 12.8 L [place] % (Auto) 12.4 H Lymph # (Auto) 0.7 L [place] # (Auto) Abs Immat Gran (auto) Absolute Neuts (auto) VBG pH 7.48 H VBG HCO3 34 H 38 H Sodium Potassium Chloride Carbon Dioxide 31 H Anion Gap BUN 8 L Creatinine 0.49 L Random Glucose 153 H Lactic Acid Phosphorus Magnesium AST ALT Alkaline Phosphatase 26 L Total Protein 6.0 L Vancomycin Trough Random Vancomycin Valproic Acid Entero/Rhino (PCR) 01/30/25 01/30/25 01/31/25 05:58 18:24 00:55 WBC RBC Hgb Hct Plt Count MPV Immature Gran % (Auto) Neut % (Auto) Lymph % (Auto) [place] % (Auto) Lymph # (Auto) [place] # (Auto) Abs Immat Gran (auto) Absolute Neuts (auto) VBG pH 7.53 H VBG HCO3 34 H Sodium 134 L Potassium Chloride 95 L Carbon Dioxide Anion Gap BUN Creatinine 0.44 L Random Glucose 126 H Lactic Acid Phosphorus Magnesium 1.5 L AST ALT Alkaline Phosphatase 28 L Total Protein 6.4 L Vancomycin Trough Random Vancomycin < 2.0 L Valproic Acid Entero/Rhino (PCR) 01/31/25 02/01/25 02/02/25 06:34 06:14 06:06 WBC RBC 3.74 L Hgb 10.9 L Hct 31.8 L Plt Count MPV Immature Gran % (Auto) Neut % (Auto) Lymph % (Auto) [place] % (Auto) Lymph # (Auto) [place] # (Auto) Abs Immat Gran (auto) Absolute Neuts (auto) VBG pH VBG HCO3 Sodium 134 L Potassium Chloride Carbon Dioxide 31 H Anion Gap 10 L BUN Creatinine 0.48 L 0.46 L 0.44 L Random Glucose 122 H 122 H 124 H Lactic Acid Phosphorus 4.6 H Magnesium AST 64 H 58 H 56 H ALT 51 H Alkaline Phosphatase 32 L 32 L 36 L Total Protein Vancomycin Trough 9.1 L 20.7 H Random Vancomycin Valproic Acid Entero/Rhino (PCR) 02/03/25 06:56 WBC RBC Hgb Hct Plt Count MPV Immature Gran % (Auto) Neut % (Auto) Lymph % (Auto) [place] % (Auto) Lymph # (Auto) [place] # (Auto) Abs Immat Gran (auto) Absolute Neuts (auto) VBG pH VBG HCO3 Sodium 134 L Potassium Chloride Carbon Dioxide Anion Gap BUN Creatinine 0.47 L Random Glucose 122 H Lactic Acid Phosphorus Magnesium AST 42 H ALT Alkaline Phosphatase 34 L Total Protein Vancomycin Trough Random Vancomycin Valproic Acid Entero/Rhino (PCR) Microbiology: Microbiology 01/31/25 09:22 Urine Catheterized - Straight Catheter Urine Culture - Final No growth. 01/31/25 01:49 Blood - Venous Blood Culture - Preliminary No growth after 48 hours. 01/31/25 01:49 Blood - Venous Blood Culture - Preliminary No growth after 48 hours. 01/27/25 00:00 Blood - Venous Blood Culture - Final No growth after 5 days. 01/26/25 23:44 Blood - Venous Blood Culture - Final No growth after 5 days. 01/28/25 19:40 Sputum - Suctioned Gram Stain - Final 01/28/25 19:40 Sputum - Suctioned Sputum Culture - Final Assessment and Plan (1) Recurrent aspiration pneumonia: Status: Acute (2) Acute hypoxemic respiratory failure: Status: Acute Plan Impression: 59-year-old gentleman with underlying lung discussed at seizure syndrome, Parkinson disease, and dysphagia with recurrent aspirations admitted with another aspiration event with resultant hypoxemia, with moderate recovery, and remains constant risk of repeat aspiration events. Recommendation: Agree with empiric treatment for pulmonary aspiration and titrating off supplemental oxygen as tolerated. Unfortunately, his risk of pulmonary aspiration currently is not modifiable. Procedures Date of Service Date of Service: 02/03/25
--- NOTE | 2025-02-03 13:44 | MHC.SL.SWA ---
Speech Pathologist Impression: Moderate oropharyngeal dysphagia Risk of Aspiration Due to: Hx of dysphagia Respiratory status Physical limitations Functional limitations Dysphasia Diet Status: Recommend NPO strict Liquid Consistency and Strategies for Safe Swallow: Liquid Intake Recommendation: NPO Liquid Intake Strategies: Solid Food Consistency: Dietary Recommendations: NPO Additional Modifications to Solid Foods: Oral Medication Intake: NPO Please contact the pharmacy regarding appropriate crushable or liquid drug formulations that are available whenever modified delivery is recommended. Compensatory Strategies and Precautions to be Taken for Safe Swallow: Supervision While Eating and Drinking for Safe Swallow: PO with GAS METER CHECKER Foods to Avoid: Swallowing Recommended Treatments: Compens. Strategy Educat. Recommendation for Speech: Comment: Pt seen for dysphagia treatment. Pt tolerated small amounts of pudding and HTL but elicited wet, congested cough s/p minimal trials. Pt unable to efficiently clear pharyngeal material. ASSET PROTECTION PROFESSIONAL took vitals in middle of PO trials, O2 sats 94% on 4L O2 via [place]. [facility] staff not in room when GAS METER CHECKER arrived. Pt contracted, HOB elevated to 70 degrees. [facility] staff arrived and informed GAS METER CHECKER that pt does sit upright in WC at residential to reduce his risk for aspiration. [facility] staff assisted in repositioning pt. MBSS planned tomorrow to visualize physiological function of swallow. Inpatient team to be meeting with guardians s/p MBSS in determining most appropriate POC (residential staff reported the state deems any persons with PEC NPO strict). Frequency/Duration: Date Range for Service Req: Timeline to reassess: Client Technical Specialist Clinican/Clinical Fellow: No Supervisory Statement: I have reviewed and agree with the student/clinical fellow's documentation: N/A Speech Language Pathologist: Claire Lee M.S., [facility]-GAS METER CHECKER
--- NOTE | 2025-02-03 14:30 | P.PNIM_ITS ---
Subjective Subjective Date of Service: 02/03/25 Interval History: per [facility]LOAK ROOM ATTENDANT: tolerated small amounts of pudding and HTL but elicited wet, congested cough s/p minimal trials. Pt unable to efficiently clear pharyngeal material. somnolent but arousable, not verbal to me last fever 100.7 @ 11:10 yesterday Review of Systems Review of Systems: Yes all other systems are reviewed and are negative Physical Exam 2 Vital Signs: Vital Signs: Last Vital Signs Temp 97.5 F 02/03/25 11:19 Pulse 77 02/03/25 11:32 Resp 18 02/03/25 11:32 BP 133/64 02/03/25 11:19 Pulse Ox 94 02/03/25 11:19 O2 Del Method Nasal Cannula 02/03/25 11:19 O2 Flow Rate 4 02/03/25 11:19 BMI result Body Mass Index 26.0 Gen: in no acute distress HEENT: sclera anicteric, moist mucus membranes Neck: supple Lungs: wet bibasilar inspiratory crackles Heart: regular rate and rhythm, no murmurs Abd: soft, non-tender, non-distended Ext: no edema Skin: warm/well-perfused Neuro: somnolent, minimally verbal Psych: impaired insight Objective Data Active Medications Acetaminophen (Acetaminophen Supp 650 Mg Supp.Rect) 650 mg [place] Q6H PRN PRN Reason: Fever Last Admin: 02/02/25 14:30 Dose: 650 mg Documented By: IVORY Acetylcysteine (Acetylcysteine 10 % 400 Mg/4 Ml Vial) 400 mg INHALE RBID [facility] Last Admin: 02/03/25 07:29 Dose: 400 mg Documented By: JAH Albuterol Sulfate (Albuterol Sulfate (0.083%) 2.5 Mg/3 Ml Vial.Neb) 2.5 mg INHALE Q3H PRN PRN Reason: sob Last Admin: 01/29/25 02:50 Dose: 2.5 mg Documented By: MICHAEL Albuterol/Ipratropium (Albuterol/Iprat 2.5/0.5mg 3 Ml Ampul.Neb) 3 ml INHALE RQ4H WHILE AWAKE [facility] Last Admin: 02/03/25 11:30 Dose: 3 ml Documented By: JAH Enoxaparin Sodium (Enoxaparin Sodium 40 Mg/0.4 Ml Syringe) 40 mg SUBCUT Q24H [facility] Last Admin: 02/03/25 08:21 Dose: 40 mg Documented By: IVORY Levetiracetam (Keppra) 500 mg in 100 mls @ 400 mls/hr IV Q12H [facility] Last Infusion: 02/03/25 10:58 Dose: Infused Documented By: IVORY Valproic Acid 500 mg/ Dextrose 55 mls @ 55 mls/hr IV BID [facility] Last Infusion: 02/03/25 12:00 Dose: Infused Documented By: IVORY Nutrition (Parenteral) (Parenteral Nutrition) 2,280 mls @ 95 mls/hr IV .Q24H [facility]; Protocol Stop: 02/03/25 20:59 Last Admin: 02/02/25 21:30 Dose: 95 mls/hr Documented By: ZULLY Doxycycline Hyclate 100 mg/ (Sodium Chloride) 250 mls @ 166.67 mls/hr IV Q12H [facility] Piperacillin Sod/Tazobactam (Sod 3.375 gm/ Sodium Chloride) 50 mls @ 100 mls/hr IV Q6H [facility] Last Infusion: 02/03/25 09:32 Dose: Infused Documented By: IVORY Nutrition (Parenteral) (Parenteral Nutrition) 2,280 mls @ 95 mls/hr IV .Q24H [facility]; Protocol Stop: 02/04/25 20:59 Levothyroxine Sodium (Levothyroxine Sodium 100 Mcg/5 Ml Vial) 50 mcg IVPUSH DAILY@0600 [facility] Pantoprazole Sodium (Pantoprazole Sodium 40 Mg/10 Ml Vial) 40 mg IVPUSH DAILY@0630 [facility] Last Admin: 02/03/25 06:12 Dose: 40 mg Documented By: ZULLY Pharmacy Consult (Consult Rx Parenteral Nutrition Ordering) 1 each MISCELLANE DAILY PRN PRN Reason: Consult order Sodium Chloride (0.9 % Sodium Chloride Flush 3 Ml Syringe) 3 ml IVFLUSH QSHIFT [facility] Last Admin: 02/03/25 08:27 Dose: Not Given Documented By: IVORY Non-Admin Reason: IV Running Labs 02/02/25 06:06 02/03/25 06:56 Labs: Laboratory Results - last 24 hr 08/06/25 06:56 Hold Purple Top SEE NOTE Anion Gap 13 Estim Creat Clear Calc 180.2 Estimated GFR > 60 Random Glucose 122 H Calcium 9.9 Phosphorus 4.3 Magnesium 2.0 Total Bilirubin 0.4 AST 42 H ALT 36 Alkaline Phosphatase 34 L Total Protein 6.9 Albumin 3.9 Procalcitonin 0.05 Assessment and Plan (1) Recurrent aspiration pneumonia: Status: Acute (2) Acute hypoxemic respiratory failure: Status: Acute Plan d8, 59yo nonverbal bed-bound [facility] resident with Parkinson's disease, Manjinder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, seizures, depression, anxiety, aspiration, HLD, hypothyroidism sent in with cough, found to be hypoxic, initially admitted to ICU on BiPAP for resp failure, stepped down to [facility] 01/29/25 acute encephalopathy and sepsis due to aspiration pneumonia - weaned to 4L o2 via NC, on piperacillin-tazobactam 01/27-, vanco changed to doxy 02/03- - blood cultures negative; rhinovirus positive - wean O2 as tolerated - remains on PPN; per CLOAK ROOM ATTENDANT will perform MBSS tomorrow then meeting with guardian regarding feeding plan; Surg on hold for possible PEG agitation - soft restraints discontinued, was trying to remove IVs + O2 epilepsy - continue valproic acid+ levetiracetam IV - resume lamotrigine + felbamate when able to take POs or has PEG hypothyroidism - continue LT4, IV for now mood disorder - resume sertraline + clonazepam when able HLD - resume statin when able VTE ppx - enoxaparin dispo - [facility] In my clinical judgment, the patient requires continued inpatient hospitalization for the following reasons: IV PPN, possible PEG? Total time managing care of this patient today: 40 minutes. Quality Stroke Does the patient have a stroke diagnosis?: No VTE Prior VTE?: No VTE Risk Level:: Medical - moderate - high VTE Device Contraindication: N/A - Device Ordered VTE Drug Contraindication: N/A - Med Ordered
[2025-02-03 15:31] LABS: Appearance Urine Clear; Glucose Urine UA Negative (Negative); PH 7.0 (5.0-9.0); Specific Gravity - Urine 1.015 (1.005-1.025)
[2025-02-03] MEDS: 0.9 % Sodium Chloride Flush 3 ML SYRINGE IVFLUSH (20:39)
[2025-02-03] MEDS: Parenteral Nutrition 2,280 ML 95 ML IV (23:05)
[2025-02-04] VITALS (7 sets, daily range): BP systolic 92–110; BP diastolic 52–78; PULSE 73–91; RESP 16–20; TEMP 36.3–37.5; O2SAT 92–99; BMI 25.1
[2025-02-04 07:06] LABS: Alanine Aminotransferase 48 U/L (0-40); Albumin Level 3.8 g/dL (3.5-5.0); Alkaline Phosphatase 40 U/L (39-117); Anion Gap 13 (12-20); Aspartate Amino Transferase 45 U/L (5-37); Blood Urea Nitrogen 14 mg/dL (9-16); Calcium 9.8 mg/dL (8.4-10.2); Carbon Dioxide 27 mmol/L (22-29); Chloride 100 mmol/L (96-108); Creatinine Clr Calc Pharmacy 184.1; Estimated Glomerular Filt Rate > 60; Magnesium 2.0 mg/dL (1.6-2.6); Potassium 4.6 mmol/L (3.3-5.1); Sodium 135 mmol/L (135-145); Total Protein 7.1 g/dL (6.5-8.0)
[2025-02-04] MEDS: Acetylcysteine 10 % 400 MG/4 ML VIAL INHALE (07:53)
[2025-02-04] MEDS: Albuterol/Iprat 2.5/0.5MG 3 ML AMPUL.NEB INHALE (07:53)
--- NOTE | 2025-02-04 08:28 | PM.PNGS ---
Subjective Subjective Date of Service: 02/04/25 Interval history: No events reported As per caregiver at bedside, he a trial of oral intake yesterday and seems to tolerate this Physical Exam Vital Signs: Vital Signs: Last Vital Signs Temp 98.5 F 02/04/25 04:00 Pulse 78 02/04/25 07:56 Resp 16 02/04/25 07:56 BP 110/56 L 02/04/25 04:00 Pulse Ox 96 02/04/25 04:00 O2 Del Method Nasal Cannula 02/04/25 04:00 O2 Flow Rate 3 02/04/25 04:00 BMI result Body Mass Index 25.1 Const: Other: On oxygen by nasal cannula General: no acute distress Resp: Other: On O2 by nasal cannula Cardio: Rate: regular rate GI: Palpation (GI): Soft to palpation, not firm and nontender Objective Data Active Medications Acetaminophen (Acetaminophen Supp 650 Mg Supp.Rect) 650 mg [place] Q6H PRN PRN Reason: Fever Last Admin: 02/02/25 14:30 Dose: 650 mg Documented By: IVORY Acetylcysteine (Acetylcysteine 10 % 400 Mg/4 Ml Vial) 400 mg INHALE RBID REPLACED BY [facility] Last Admin: 02/04/25 07:53 Dose: 400 mg Documented By: INDY Albuterol Sulfate (Albuterol Sulfate (0.083%) 2.5 Mg/3 Ml Vial.Neb) 2.5 mg INHALE Q3H PRN PRN Reason: sob Last Admin: 01/29/25 02:50 Dose: 2.5 mg Documented By: MICHAEL Albuterol/Ipratropium (Albuterol/Iprat 2.5/0.5mg 3 Ml Ampul.Neb) 3 ml INHALE RQ4H WHILE AWAKE REPLACED BY [facility] Last Admin: 02/04/25 07:53 Dose: 3 ml Documented By: INDY Enoxaparin Sodium (Enoxaparin Sodium 40 Mg/0.4 Ml Syringe) 40 mg SUBCUT Q24H REPLACED BY [facility] Last Admin: 02/03/25 08:21 Dose: 40 mg Documented By: IVORY Levetiracetam (Keppra) 500 mg in 100 mls @ 400 mls/hr IV Q12H REPLACED BY [facility] Last Infusion: 02/03/25 20:53 Dose: Infused Documented By: LOUISA Valproic Acid 500 mg/ Dextrose 55 mls @ 55 mls/hr IV BID REPLACED BY [facility] Last Infusion: 02/03/25 21:38 Dose: Infused Documented By: LOUISA Doxycycline Hyclate 100 mg/ (Sodium Chloride) 250 mls @ 166.67 mls/hr IV Q12H REPLACED BY [facility] Last Infusion: 02/04/25 02:43 Dose: Infused Documented By: LOUISA Piperacillin Sod/Tazobactam (Sod 3.375 gm/ Sodium Chloride) 50 mls @ 100 mls/hr IV Q6H REPLACED BY [facility] Last Infusion: 02/04/25 01:43 Dose: Infused Documented By: LOUISA Nutrition (Parenteral) (Parenteral Nutrition) 2,280 mls @ 95 mls/hr IV .Q24H REPLACED BY [facility]; Protocol Stop: 02/04/25 20:59 Last Admin: 02/03/25 23:05 Dose: 95 mls/hr Documented By: LOUISA Levothyroxine Sodium (Levothyroxine Sodium 100 Mcg/5 Ml Vial) 50 mcg IVPUSH DAILY@0600 REPLACED BY [facility] Last Admin: 02/04/25 05:31 Dose: 50 mcg Documented By: LOUISA Pantoprazole Sodium (Pantoprazole Sodium 40 Mg/10 Ml Vial) 40 mg IVPUSH DAILY@0630 REPLACED BY [facility] Last Admin: 02/04/25 05:31 Dose: 40 mg Documented By: LOUISA Pharmacy Consult (Consult Rx Parenteral Nutrition Ordering) 1 each MISCELLANE DAILY PRN PRN Reason: Consult order Sodium Chloride (0.9 % Sodium Chloride Flush 3 Ml Syringe) 3 ml IVFLUSH QSHIFT REPLACED BY [facility] Last Admin: 02/03/25 20:39 Dose: 3 ml Documented By: LOUISA Labs 02/02/25 06:06 02/04/25 06:18 Labs: Laboratory Results - last 24 hr 02/03/25 02/04/25 15:00 06:18 Anion Gap 13 Estim Creat Clear Calc 184.1 Estimated GFR > 60 Random Glucose 107 Calcium 9.8 Phosphorus 4.8 H Magnesium 2.0 Total Bilirubin 0.4 AST 45 H ALT 48 H Alkaline Phosphatase 40 Total Protein 7.1 Albumin 3.8 Urine Color Yellow Urine Appearance Clear Urine pH 7.0 Ur Specific [place] 1.015 Urine Protein Negative Urine Glucose (UA) Negative Urine Ketones Negative Urine Blood Negative Urine Nitrite Negative Ur Leukocyte Esterase Negative Procedures Date of Service Date of Service: 02/04/25 Progress Note: A&P Assessment and plan (1) Aspiration pneumonia of both lungs: Status: Acute Assessment and Plan: According to caregivers, this has a 1st time he has had aspiration pneumonia They feel that it will be reasonable to hold off on peg tube placement Caregivers want him to try intake again as they state that this 1 thing he [facility] at the [facility] Time Spent With Patient Time: Total time managing care of this patient today ____ minutes. Quality Stroke Does the patient have a stroke diagnosis?: No VTE Prior VTE?: No VTE Risk Level:: Medical - moderate - high VTE Device Contraindication: N/A - Device Ordered VTE Drug Contraindication: N/A - Med Ordered
[2025-02-04] MEDS: levETIRAcetam in NaCl (iso-os) 500 MG/100 ML PIGGYBACK 400 MG IV (09:10)
[2025-02-04] MEDS: Valproic Acid (as Sodium Salt) 500 MG in Dextrose 5 % 50 ML 55 MG IV (09:26)
[2025-02-04] MEDS: 0.9 % Sodium Chloride Flush 3 ML SYRINGE IVFLUSH ×2 (09:27→20:58)
--- NOTE | 2025-02-04 11:10 | MHC.CLN ---
F/U PT REMAINS NPO REVIEWED LABS DISCUSSED WITH PHARMACY CONTINUE PPN AT MAX GOAL RATE OF 95 ML/HR WITH 79G LIPIDS PROVIDES 1953 TOTAL KCALS (25KCALS/KG BASED ON IBW), 228G DEXTROSE, 97G PROTEIN (1.2G/KG) PPN WILL PROMOTE WOUND HEALING REPLETE LYTES NEEDED
--- NOTE | 2025-02-04 11:52 | HO.PM.IMPN ---
Subjective Subjective Date of Service: 02/04/25 Interval History: more awake today and tolerating his baseline diet; weaned off O2 Review of Systems Review of Systems: Yes Unobtainable due to mental status Physical Exam Vital Signs: Vital Signs: Last Vital Signs Temp 98.8 F 02/04/25 08:00 Pulse 73 02/04/25 08:00 Resp 20 02/04/25 08:00 BP 92/52 L 02/04/25 08:00 Pulse Ox 99 02/04/25 08:00 O2 Del Method Nasal Cannula 02/04/25 08:00 O2 Flow Rate 3 02/04/25 08:00 BMI result Body Mass Index 25.1 Gen: in no acute distress HEENT: sclera anicteric, moist mucus membranes, proptosis Neck: supple Lungs: diminished Heart: regular rate and rhythm, no murmurs Abd: soft, non-tender, non-distended Ext: no edema Skin: warm/well-perfused Neuro: awake, verbal only with care home staff Psych: impaired insight Objective Data Active Medications Acetaminophen (Acetaminophen 325 Mg Tablet) 650 mg PO Q6H PRN PRN Reason: Fever Or Pain Albuterol Sulfate (Albuterol Sulfate (0.083%) 2.5 Mg/3 Ml Vial.Neb) 2.5 mg INHALE Q3H PRN PRN Reason: sob Last Admin: 01/29/25 02:50 Dose: 2.5 mg Documented By: MICHAEL Aspirin (Aspirin 81 Mg Tab.Chew) 81 mg PO DAILY@0800 [facility] Atorvastatin Calcium (Atorvastatin Calcium 20 Mg Tablet) 20 mg PO DAILY [facility] Bisacodyl (Bisacodyl 10 Mg Supp.Rect) 10 mg OR DAILY PRN PRN Reason: Constipation Clonazepam (Clonazepam 0.5 Mg Tablet) 0.5 mg PO BEDTIME [facility] Clonazepam (Clonazepam 0.5 Mg Tablet) 0.25 mg PO BID@0800,1200 [facility] Divalproex Sodium (Divalproex Sodium Sprinkles 125 Mg ) 500 mg PO TID [facility] Docusate Sodium (Docusate Sodium 100 Mg/10 Ml Liquid) 100 mg PO DAILY@0800 [facility] Enoxaparin Sodium (Enoxaparin Sodium 40 Mg/0.4 Ml Syringe) 40 mg SUBCUT Q24H [facility] Last Admin: 02/04/25 09:27 Dose: 40 mg Documented By: YVES Doxycycline Hyclate 100 mg/ (Sodium Chloride) 250 mls @ 166.67 mls/hr IV Q12H [facility] Last Infusion: 02/04/25 02:43 Dose: Infused Documented By: LOUISA Piperacillin Sod/Tazobactam (Sod 3.375 gm/ Sodium Chloride) 50 mls @ 100 mls/hr IV Q6H [facility] Last Infusion: 02/04/25 09:47 Dose: Infused Documented By: YVES Lamotrigine (Lamotrigine 25 Mg Tablet) 50 mg PO BID MEETA Levetiracetam (Levetiracetam 1,000 Mg Tablet) 1,000 mg PO TID [facility] Levothyroxine Sodium (Levothyroxine Sodium 88 Mcg Tablet) 88 mcg PO DAILY@0600 [facility] Multivitamins/Vitamin C (Multivitamin Tablet) 1 tab PO DAILY [facility] Non-Formulary Medication (Felbamate) 800 mg PO TID [facility] Sertraline HCl (Sertraline Hcl 50 Mg Tablet) 50 mg PO BEDTIME [facility] Sodium Chloride (0.9 % Sodium Chloride Flush 3 Ml Syringe) 3 ml IVFLUSH QSHIFT [facility] Last Admin: 02/04/25 09:27 Dose: 3 ml Documented By: YVES Labs 02/02/25 06:06 02/04/25 06:18 Labs: Laboratory Results - last 24 hr 02/03/25 02/04/25 15:00 06:18 Anion Gap 13 Estim Creat Clear Calc 184.1 Estimated GFR > 60 Random Glucose 107 Calcium 9.8 Phosphorus 4.8 H Magnesium 2.0 Total Bilirubin 0.4 AST 45 H ALT 48 H Alkaline Phosphatase 40 Total Protein 7.1 Albumin 3.8 Urine Color Yellow Urine Appearance Clear Urine pH 7.0 Ur Specific [place] 1.015 Urine Protein Negative Urine Glucose (UA) Negative Urine Ketones Negative Urine Blood Negative Urine Nitrite Negative Ur Leukocyte Esterase Negative Assessment and Plan (1) Recurrent aspiration pneumonia: Status: Acute (2) Acute hypoxemic respiratory failure: Status: Acute Plan d9, 59yo nonverbal bed-bound M care home resident with Parkinson's disease, [place]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 01/29/25 acute hypoxic respiratory failure and acute encephalopathy and sepsis due to aspiration pneumonia - weaned off O2 today, on piperacillin-tazobactam 01/27-, vanco changed to doxy 02/03- - blood cultures negative; rhinovirus positive - d/c PPN; d/c MBSS; start baseline diet [NDD1 solids, thin liquids, pills crushed in puree]; no PEG needed; monitor lytes for refeeding syndrome agitation - soft restraints discontinued, was trying to remove IVs + O2 but agitation has resolved epilepsy - change valproic acid+ levetiracetam back to PO - resume lamotrigine + felbamate hypothyroidism - change LT4 IV back to PO mood disorder - resume sertraline + clonazepam HLD - resume statin VTE ppx - enoxaparin dispo - care home In my clinical judgment, the patient requires continued inpatient hospitalization for the following reasons: advancing diet Total time managing care of this patient today: 40 minutes. Quality Stroke Does the patient have a stroke diagnosis?: No VTE Prior VTE?: No VTE Risk Level:: Medical - moderate - high VTE Device Contraindication: N/A - Device Ordered VTE Drug Contraindication: N/A - Med Ordered
--- NOTE | 2025-02-04 12:05 | MHC.CM.PN ---
Per ROUNDS, Patient has improved and MBS has been cancelled. CM asked if MD would call JOSI/Ana @ [phone] and give her an update. CM will follow.
[2025-02-04] MEDS: Divalproex Sodium Sprinkles 125 MG CAP.DR.SPR 500 MG PO ×2 (15:45→20:58)
--- NOTE | 2025-02-04 17:20 | MHC.SL.SWA ---
Speech Pathologist Impression: Risk of Aspiration Due to: Dysphasia Diet Status: re-start on diet of PUREE (NDD-1) with THIN liquids, (by tsp only or nosey cup if provided by prison) with pills crushed in puree. Liquid Consistency and Strategies for Safe Swallow: Liquid Intake Recommendation: Thin Liquid Intake Strategies: Liquids by Teaspoon Only Solid Food Consistency: Dietary Recommendations: Pureed (NDD1) Additional Modifications to Solid Foods: Recommending UPGRADE to PUREE SOLIDS (NDD1) and THIN LIQUIDS. MEDS CRUSHED in PUREE. 1:1 ASSIST at this time. NO STRAWS, liquids by tsp only. Oral Medication Intake: Crushed with Puree Please contact the pharmacy regarding appropriate crushable or liquid drug formulations that are available whenever modified delivery is recommended. Compensatory Strategies and Precautions to be Taken for Safe Swallow: Sitting Upright (90 deg) Liquids from Spoon Small Bites and Sips Alternate Liquids/Solids Supervision While Eating and Drinking for Safe Swallow: Total Assistance (1:1) Foods to Avoid: Swallowing Recommended Treatments: Compens. Strategy Educat. Recommendation for Speech: Comment: Patient seen this morning for re-assessment/readiness for MBSS eval. market research worker who was present advised patient did not sleep well, and may be difficult to wake, but with ample prompting, patient woke, was repositioned in bed with head of bed up, was minimally responsive at first, but when food and drink offered he became more interactive. Patient is now off oxygen, and maintaining good oxygenation, per RN. Patient was initially given water, with patient sipping from spoon, initially containing and swallowing with no clinical signs of aspiration. On second presentation, patient spat out the water. Juice was recommended as a preference, and it was then offered by spoon, with patient opening mouth for spoon, stripping or sipping from the spoon well, containing the juice and swallowing. Patient then continued to take juice in this manner for a full cup full of juice with no clinical signs of aspiration. Patient then given pudding, which is reportedly a favorite. Patient consistently stripped spoon, propelled bolus well, produced timely swallow. No clinical signs of aspiration on a full container of pudding. Patient is appearing back to baseline tolerating both thin consistency and puree consistency well with no clinical signs of aspiration. MD entered room during trials, also noted that patient was doing well and had significantly improved. Patient's progress was discussed with MD later, with recommendation that planned MBSS be cancelled as not indicated given patient toleration of baseline diet. It was recommended instead that patient be re-started on diet of PUREE (NDD-1) with THIN liquids, (by tsp only or nosey cup if provided by prison) with pills crushed in puree. Patient requires 1-1 feeding, must be well positioned in bed for meal (at prison patient sits in specialized wheel chair, is encouraged to be independent with meal, but often needs assistance). BUILDING MAINTENANCE TECHNICIAN will return to observe meal for toleration is patient remains as inpatient. RN aware. Frequency/Duration: Date Range for Service Req: Timeline to reassess: Pearl Glue Operator Clinican/Clinical Fellow: No Supervisory Statement: I have reviewed and agree with the student/clinical fellow's documentation: N/A Speech Language Pathologist: Maureen Milan M.A., CCC-BUILDING MAINTENANCE TECHNICIAN
[2025-02-04] MEDS: FELBAMATE 400 MG 800 EACH PO ×2 (17:54→20:57)
[2025-02-05] VITALS: BP 115/56; PULSE 94; RESP 20; TEMP 36.8; O2SAT 92
[2025-02-05 04:00] VITALS: BP 115/56; PULSE 86; RESP 20; TEMP 36.8; O2SAT 91
[2025-02-05 06:00] VITALS: BMI 27.7
[2025-02-05 08:00] VITALS: BP 96/52; PULSE 79; RESP 18; TEMP 37.3; O2SAT 91
[2025-02-05 08:09] LABS: Alanine Aminotransferase 143 U/L (0-40); Albumin Level 3.9 g/dL (3.5-5.0); Alkaline Phosphatase 54 U/L (39-117); Anion Gap 13 (12-20); Aspartate Amino Transferase 112 U/L (5-37); Blood Urea Nitrogen 20 mg/dL (9-16); Calcium 9.0 mg/dL (8.4-10.2); Carbon Dioxide 26 mmol/L (22-29); Chloride 104 mmol/L (96-108); Creatinine Clr Calc Pharmacy 154.0; Estimated Glomerular Filt Rate > 60; Magnesium 2.0 mg/dL (1.6-2.6); Potassium 4.1 mmol/L (3.3-5.1); Sodium 139 mmol/L (135-145); Total Protein 6.9 g/dL (6.5-8.0)
[2025-02-05 09:12] LABS: CDiff Gene PCR NEGATIVE (Negative)
--- NOTE | 2025-02-05 09:55 | HO.PM.IMPN ---
Subjective Subjective Date of Service: 02/05/25 Interval History: RN reported 3 watery diarrhea episodes tolerating diet + pills Review of Systems Review of Systems: Yes Unobtainable due to mental status Physical Exam Vital Signs: Vital Signs: Last Vital Signs Temp 99.2 F 02/05/25 08:00 Pulse 79 02/05/25 08:00 Resp 18 02/05/25 08:00 BP 96/52 L 02/05/25 08:00 Pulse Ox 91 L 02/05/25 08:00 O2 Del Method Room Air 02/05/25 08:00 O2 Flow Rate 3 02/04/25 20:00 BMI result Body Mass Index 27.7 Gen: in no acute distress HEENT: sclera anicteric, moist mucus membranes, proptosis Neck: supple Lungs: diminished Heart: regular rate and rhythm, no murmurs Abd: soft, non-tender, non-distended Ext: no edema Skin: warm/well-perfused Neuro: awake, verbal only with residential staff Psych: impaired insight Objective Data Active Medications Acetaminophen (Acetaminophen 325 Mg Tablet) 650 mg PO Q6H PRN PRN Reason: Fever Or Pain Albuterol Sulfate (Albuterol Sulfate (0.083%) 2.5 Mg/3 Ml Vial.Neb) 2.5 mg INHALE Q3H PRN PRN Reason: sob Last Admin: 01/29/25 02:50 Dose: 2.5 mg Documented By: MICHAEL Aspirin (Aspirin 81 Mg Tab.Chew) 81 mg PO DAILY@0800 [facility] Atorvastatin Calcium (Atorvastatin Calcium 20 Mg Tablet) 20 mg PO DAILY [facility] Bisacodyl (Bisacodyl 10 Mg Supp.Rect) 10 mg ME DAILY PRN PRN Reason: Constipation Clonazepam (Clonazepam 0.5 Mg Tablet) 0.5 mg PO BEDTIME [facility] Last Admin: 02/04/25 20:57 Dose: 0.5 mg Documented By: LOUISA Clonazepam (Clonazepam 0.5 Mg Tablet) 0.25 mg PO BID@0800,1200 [facility] Last Admin: 02/04/25 12:33 Dose: 0.25 mg Documented By: YVES Divalproex Sodium (Divalproex Sodium Sprinkles 125 Mg ) 500 mg PO TID [facility] Last Admin: 02/04/25 20:58 Dose: 500 mg Documented By: LOUISA Docusate Sodium (Docusate Sodium 100 Mg/10 Ml Liquid) 100 mg PO DAILY@0800 [facility] Enoxaparin Sodium (Enoxaparin Sodium 40 Mg/0.4 Ml Syringe) 40 mg SUBCUT Q24H [facility] Last Admin: 02/04/25 09:27 Dose: 40 mg Documented By: YVES Lamotrigine (Lamotrigine 25 Mg Tablet) 50 mg PO BID [facility] Last Admin: 02/04/25 20:58 Dose: 50 mg Documented By: LOUISA Levetiracetam (Levetiracetam 1,000 Mg Tablet) 1,000 mg PO TID [facility] Last Admin: 02/04/25 20:58 Dose: 1,000 mg Documented By: LOUISA Levothyroxine Sodium (Levothyroxine Sodium 88 Mcg Tablet) 88 mcg PO DAILY@0600 [facility] Last Admin: 02/05/25 05:33 Dose: 88 mcg Documented By: LOUISA Multivitamins/Vitamin C (Multivitamin Tablet) 1 tab PO DAILY [facility] Pt Own (Felbamate (400 Mg Tablet)) 800 mg PO TID [facility] Last Admin: 02/04/25 20:57 Dose: 800 mg Documented By: LOUISA Sertraline HCl (Sertraline Hcl 50 Mg Tablet) 50 mg PO BEDTIME [facility] Last Admin: 02/04/25 20:58 Dose: 50 mg Documented By: LOUISA Sodium Chloride (0.9 % Sodium Chloride Flush 3 Ml Syringe) 3 ml IVFLUSH QSHIFT [facility] Last Admin: 02/04/25 20:58 Dose: 3 ml Documented By: LOUISA Labs 02/02/25 06:06 02/05/25 07:33 Labs: Laboratory Results - last 24 hr 02/05/25 02/05/25 07:33 07:58 Hold Purple Top SEE NOTE Anion Gap 13 Estim Creat Clear Calc 154.0 Estimated GFR > 60 Random Glucose 90 Calcium 9.0 D Phosphorus 4.5 Magnesium 2.0 Total Bilirubin 0.3 AST 112 H ALT 143 H Alkaline Phosphatase 54 Total Protein 6.9 Albumin 3.9 C. difficile Tox B Gene NEGATIVE Microbiology Microbiology Results: Microbiology 01/31/25 01:49 Blood Culture - Final Blood - Venous No growth after 5 days. 01/31/25 01:49 Blood Culture - Final Blood - Venous No growth after 5 days. 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, seizures, depression, anxiety, aspiration, HLD, hypothyroidism sent in with cough, found to be hypoxic, initially admitted to ICU on BiPAP for respiratory failure, stepped down to [facility] 01/29/25 acute hypoxic respiratory failure and acute encephalopathy and sepsis due to aspiration pneumonia - weaned off O2 today, completed piperacillin-tazobactam 01/27-02/05, vanco changed to doxy 02/03-02/05 - blood cultures negative; rhinovirus positive - d/c'ed PPN; d/c'ed MBSS; tolerating baseline diet [NDD1 solids, thin liquids, pills crushed in puree]; no PEG needed; monitor lytes for refeeding syndrome transaminasemia - recheck LFTs tomorrow; possibly medication effect or pneumonia diarrhea - C diff negative, GI panel pending; prn loperamide agitation - soft restraints discontinued, was trying to remove IVs + O2 but agitation has resolved epilepsy - changed valproic acid+ levetiracetam back to PO - resumed lamotrigine + felbamate hypothyroidism - changed LT4 IV back to PO mood disorder - resumed sertraline + clonazepam HLD - resumed statin VTE ppx - enoxaparin dispo - residential In my clinical judgment, the patient requires continued inpatient hospitalization for the following reasons: elevated LFTs Total time managing care of this patient today: 40 minutes. Quality Stroke Does the patient have a stroke diagnosis?: No VTE Prior VTE?: No VTE Risk Level:: Medical - moderate - high VTE Device Contraindication: N/A - Device Ordered VTE Drug Contraindication: N/A - Med Ordered
[2025-02-05 10:06] LABS: E. coli EAEC Not Detected (Not Detect.); E. coli EPEC Not Detected (Not Detect.); E. coli ETEC Not Detected (Not Detect.); E. coli STEC Not Detected (Not Detect.); Shigella sp./EIEC Not Detected (Not Detect.)
[2025-02-05] MEDS: 0.9 % Sodium Chloride Flush 3 ML SYRINGE IVFLUSH ×2 (10:37→14:34)
[2025-02-05] MEDS: FELBAMATE 400 MG 800 EACH PO ×3 (10:37→20:16)
[2025-02-05] MEDS: Divalproex Sodium Sprinkles 125 MG CAP.DR.SPR 500 MG PO ×3 (10:37→20:16)
--- NOTE | 2025-02-05 10:47 | MHC.SLORD ---
Speech Language Pathology Order Status: HISTORIC PRESERVATIONIST attempted to see patient for dysphagia treatment this a.m. Breakfast tray at bedside appears untouched. HISTORIC PRESERVATIONIST offered multiple items from tray, with custodial staff encouraging patient to eat. However, patient refused to turn back over on his back and refused food. [facility] staff reports patient has been doing well and tolerating pureed diet without any overt difficulties. Continue on PUREED (NDD1) diet and THIN liquids, 1:1 feed and strict aspiration precautions. Per MD, patient is back to baseline, weaned off O2 & PPN d/c'ed. HISTORIC PRESERVATIONIST will continue to follow.
--- NOTE | 2025-02-05 11:41 | MHC.IC ---
PT HAS [employer] - STRICT HANDWASHING W SOAP/WATER, CLEAN SURFACES WITH BLEACH
--- NOTE | 2025-02-05 11:45 | MHC.CM.PN ---
Per ROUNDS discussion, Patient is not yet medically cleared for dc(Elevated LFTs & Episodes of diarrhea); returning to the [facility] is the goal and CM will continue to follow.
--- NOTE | 2025-02-05 11:50 | MHC.CM.PN ---
DUANE returned a call to [employer] @ [phone]; DUANE has asked Md to call [facility] with a Clinical update.
[2025-02-05 11:59] VITALS: BP 100/68; PULSE 88; RESP 18; TEMP 37.3; O2SAT 94
--- NOTE | 2025-02-05 12:25 | MHC.CLN ---
F/U PT'S DIET ADVANCED TO PUREED PPN D/C PO INTAKE 100% X 1 MEAL PT REQUIRES 1:1 FEED RECOMMEND ADDING MAGIC CUP TID TO PROMOTE WOUND HEALING SUPP TO PROVIDE 870KCALS, 27G PROTEIN MONITOR PO INTAKE AND ENCOURAGE SUPPLEMENTS
[2025-02-05 17:45] VITALS: BP 100/50; PULSE 84; RESP 16; TEMP 36.9; O2SAT 98
[2025-02-05 20:00] VITALS: BP 106/57; PULSE 82; RESP 18; TEMP 36.1; O2SAT 96
[2025-02-06] MEDS: 0.9 % Sodium Chloride Flush 3 ML SYRINGE IVFLUSH ×3 (00:14→15:17)
[2025-02-06 03:39] VITALS: BP 93/54; PULSE 83; RESP 18; TEMP 36.3; O2SAT 94
[2025-02-06 07:17] LABS: Alanine Aminotransferase 96 U/L (0-40); Albumin Level 3.9 g/dL (3.5-5.0); Alkaline Phosphatase 51 U/L (39-117); Anion Gap 14 (12-20); Aspartate Amino Transferase 72 U/L (5-37); Blood Urea Nitrogen 24 mg/dL (9-16); Calcium 9.0 mg/dL (8.4-10.2); Carbon Dioxide 25 mmol/L (22-29); Chloride 106 mmol/L (96-108); Creatinine Clr Calc Pharmacy 154.0; Estimated Glomerular Filt Rate > 60; Magnesium 2.2 mg/dL (1.6-2.6); Potassium 3.8 mmol/L (3.3-5.1); Sodium 141 mmol/L (135-145); Total Protein 7.0 g/dL (6.5-8.0)
[2025-02-06 07:56] VITALS: BP 102/52; PULSE 78; RESP 16; TEMP 36; O2SAT 92
[2025-02-06] MEDS: FELBAMATE 400 MG 800 EACH PO ×3 (09:07→20:33)
--- NOTE | 2025-02-06 09:45 | PC.NURSE ---
Attempting to medicate patient, patient roaring at nurse and moving head away from spoon while attempting to give medications. Patient was able to take non-formulary medication, when attempt was made to give clonazepam and levetiracetam patient spit medications back out at nurse, unsure how much of those medications were consumed, Provider Jocelyn notified via [employer]. Will attempt to administer rest of medications at another time.
--- NOTE | 2025-02-06 11:21 | P.PNIM_ITS ---
Subjective Subjective Date of Service: 02/06/25 Interval History: tolerating diet though refusing some meds this AM Review of Systems Review of Systems: Yes Unobtainable due to mental status Physical Exam 2 Vital Signs: Vital Signs: Last Vital Signs Temp 96.8 F 02/06/25 07:56 Pulse 78 02/06/25 07:56 Resp 16 02/06/25 07:56 BP 102/52 L 02/06/25 07:56 Pulse Ox 92 02/06/25 07:56 O2 Del Method Room Air 02/06/25 07:56 O2 Flow Rate 3 02/04/25 20:00 BMI result Body Mass Index 27.7 Gen: in no acute distress HEENT: sclera anicteric, moist mucus membranes, proptosis Neck: supple Lungs: diminished Heart: regular rate and rhythm, no murmurs Abd: soft, non-tender, non-distended Ext: no edema Skin: warm/well-perfused Neuro: awake, verbal only with longterm staff Psych: impaired insight Objective Data Active Medications Acetaminophen (Acetaminophen 325 Mg Tablet) 650 mg PO Q6H PRN PRN Reason: Fever Or Pain Albuterol Sulfate (Albuterol Sulfate (0.083%) 2.5 Mg/3 Ml Vial.Neb) 2.5 mg INHALE Q3H PRN PRN Reason: sob Last Admin: 01/29/25 02:50 Dose: 2.5 mg Documented By: MICHAEL Aspirin (Aspirin 81 Mg Tab.Chew) 81 mg PO DAILY@0800 [facility] Last Admin: 02/05/25 10:36 Dose: 81 mg Documented By: TAMELA Atorvastatin Calcium (Atorvastatin Calcium 20 Mg Tablet) 20 mg PO DAILY [facility] Last Admin: 02/05/25 10:37 Dose: 20 mg Documented By: TAMELA Bisacodyl (Bisacodyl 10 Mg Supp.Rect) 10 mg [place] DAILY PRN PRN Reason: Constipation Clonazepam (Clonazepam 0.5 Mg Tablet) 0.5 mg PO BEDTIME [facility] Last Admin: 02/05/25 20:16 Dose: 0.5 mg Documented By: SANGEETA Clonazepam (Clonazepam 0.5 Mg Tablet) 0.25 mg PO BID@0800,1200 [facility] Last Admin: 02/06/25 09:06 Dose: 0.25 mg Documented By: ABBI Divalproex Sodium (Divalproex Sodium Sprinkles 125 Mg ) 500 mg PO TID [facility] Last Admin: 02/05/25 20:16 Dose: 500 mg Documented By: SANGEETA Docusate Sodium (Docusate Sodium 100 Mg/10 Ml Liquid) 100 mg PO DAILY@0800 [facility] Last Admin: 02/05/25 10:36 Dose: 100 mg Documented By: TAMELA Enoxaparin Sodium (Enoxaparin Sodium 40 Mg/0.4 Ml Syringe) 40 mg SUBCUT Q24H [facility] Last Admin: 02/06/25 09:06 Dose: 40 mg Documented By: ABBI Lamotrigine (Lamotrigine 25 Mg Tablet) 50 mg PO BID [facility] Last Admin: 02/05/25 20:16 Dose: 50 mg Documented By: SANGEETA Levetiracetam (Levetiracetam 1,000 Mg Tablet) 1,000 mg PO TID [facility] Last Admin: 02/06/25 09:05 Dose: 1,000 mg Documented By: ABBI Levothyroxine Sodium (Levothyroxine Sodium 88 Mcg Tablet) 88 mcg PO DAILY@0600 [facility] Last Admin: 02/06/25 06:42 Dose: 88 mcg Documented By: CHEPE Loperamide HCl (Loperamide Hcl 2 Mg Capsule) 2 mg PO Q4H PRN PRN Reason: Diarrhea Multivitamins/Vitamin C (Multivitamin Tablet) 1 tab PO DAILY [facility] Last Admin: 02/05/25 10:37 Dose: 1 tab Documented By: TAMELA Pt Own (Felbamate (400 Mg Tablet)) 800 mg PO TID [facility] Last Admin: 02/06/25 09:07 Dose: 800 mg Documented By: ABBI Sertraline HCl (Sertraline Hcl 50 Mg Tablet) 50 mg PO BEDTIME [facility] Last Admin: 02/05/25 20:16 Dose: 50 mg Documented By: SANGEETA Sodium Chloride (0.9 % Sodium Chloride Flush 3 Ml Syringe) 3 ml IVFLUSH QSHIFT [facility] Last Admin: 02/06/25 09:07 Dose: 3 ml Documented By: ABBI Labs 02/02/25 06:06 02/06/25 05:39 Labs: Laboratory Results - last 24 hr 02/03/25 02/05/25 02/06/25 15:00 07:58 05:39 Hold Purple Top SEE NOTE Anion Gap 14 Estim Creat Clear Calc 154.0 Estimated GFR > 60 Random Glucose 88 Calcium 9.0 Phosphorus 4.3 Magnesium 2.2 Total Bilirubin 0.2 AST 72 H ALT 96 H Alkaline Phosphatase 51 Total Protein 7.0 Albumin 3.9 Stl C. cayetanensis PCR Not Detected Stool Rotavirus A PCR Not Detected Stl Adenov F 40/41 PCR Not Detected Stool Astrovirus (PCR) Not Detected Stool Campylobacter PCR Not Detected Stool Cryptosporidium PCR Not Detected Stl Sh Tox Pr E STEC PCR Not Detected Stool E coli O157 PCR Not applicable Stl Enterotoxigenic E PCR Not Detected Stool EPEC (PCR) Not Detected Stool EAEC (PCR) Not Detected Stl E. histolytica PCR Not Detected Stool Giardia Lamblia PCR Not Detected Stl P. 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, seizures, depression, anxiety, aspiration, HLD, hypothyroidism sent in with cough, found to be hypoxic, initially admitted to ICU on BiPAP for respiratory failure, [facility] 01/[facility]/25 acute hypoxic respiratory failure and acute encephalopathy and sepsis due to aspiration pneumonia - weaned off O2 02/05, completed piperacillin-tazobactam 01/27-02/05, vanco changed to doxy and completed 02/03-02/05 - blood cultures negative; rhinovirus positive - d/c'ed PPN; d/c'ed MBSS; tolerating baseline diet [NDD1 solids, thin liquids, pills crushed in puree]; no PEG needed; no evidence of refeeding syndrome transaminasemia - improving; recheck next week norovirus - C diff negative; prn loperamide agitation - soft restraints discontinued, was trying to remove IVs + O2 but agitation has resolved epilepsy - changed valproic acid+ levetiracetam back to PO - resumed lamotrigine + felbamate hypothyroidism - changed LT4 IV back to PO mood disorder - resumed sertraline + clonazepam HLD - resumed statin VTE ppx - enoxaparin dispo - longterm In my clinical judgment, the patient requires continued inpatient hospitalization for the following reasons: ready for d/c back to longterm, CM to coordinate Total time managing care of this patient today: 35 minutes. Quality Stroke Does the patient have a stroke diagnosis?: No VTE Prior VTE?: No VTE Risk Level:: Medical - moderate - high VTE Device Contraindication: N/A - Device Ordered VTE Drug Contraindication: N/A - Med Ordered
--- NOTE | 2025-02-06 12:38 | MHC.CM.PN ---
[facility] does not take pts back over the weekend if pt retruns on a updraft with albuterol and saline their staff needs to be trained
[2025-02-06] MEDS: Divalproex Sodium Sprinkles 125 MG CAP.DR.SPR 500 MG PO ×2 (13:42→20:32)
--- NOTE | 2025-02-06 13:56 | PC.NURSE ---
After multiple previous attempts, patient took medications crushed in ice cream.
[2025-02-06 15:49] VITALS: BP 98/51; PULSE 80; RESP 18; TEMP 36.3; O2SAT 94
[2025-02-06 19:26] VITALS: BP 101/53; PULSE 76; RESP 17; TEMP 36.3; O2SAT 94
[2025-02-06 20:24] VITALS: BP 101/50
[2025-02-07] MEDS: 0.9 % Sodium Chloride Flush 3 ML SYRINGE IVFLUSH (00:24)
[2025-02-07 03:04] LABS: Strep Pneumo Ag urine Not Detected (Not Detected)
[2025-02-07 04:00] VITALS: BP 92/53; PULSE 76; RESP 16; TEMP 36; O2SAT 90
[2025-02-07 06:40] LABS: Alanine Aminotransferase 70 U/L (0-40); Albumin Level 3.9 g/dL (3.5-5.0); Alkaline Phosphatase 53 U/L (39-117); Anion Gap 13 (12-20); Aspartate Amino Transferase 51 U/L (5-37); Blood Urea Nitrogen 26 mg/dL (9-16); Calcium 9.1 mg/dL (8.4-10.2); Carbon Dioxide 26 mmol/L (22-29); Chloride 108 mmol/L (96-108); Creatinine Clr Calc Pharmacy 159.8; Estimated Glomerular Filt Rate > 60; Magnesium 2.3 mg/dL (1.6-2.6); Potassium 3.6 mmol/L (3.3-5.1); Sodium 143 mmol/L (135-145); Total Protein 7.0 g/dL (6.5-8.0)
[2025-02-07 07:47] VITALS: BP 105/53; PULSE 71; RESP 18; TEMP 36; O2SAT 92
--- NOTE | 2025-02-07 08:23 | P.PNIM_ITS ---
Subjective Subjective Date of Service: 02/07/25 Interval History: no new events Review of Systems Review of Systems: Yes all other systems are reviewed and are negative Physical Exam 2 Vital Signs: Vital Signs: Last Vital Signs Temp 96.8 F 02/07/25 07:47 Pulse 71 02/07/25 07:47 Resp 18 02/07/25 07:47 BP 105/53 L 02/07/25 07:47 Pulse Ox 92 02/07/25 07:47 O2 Del Method Room Air 02/07/25 07:47 O2 Flow Rate 3 02/04/25 20:00 BMI result Body Mass Index 27.7 Gen: in no acute distress HEENT: sclera anicteric, moist mucus membranes, proptosis Neck: supple Lungs: diminished Heart: regular rate and rhythm, no murmurs Abd: soft, non-tender, non-distended Ext: no edema Skin: warm/well-perfused Neuro: awake, verbal only with care home staff Psych: impaired insight Objective Data Active Medications Acetaminophen (Acetaminophen 325 Mg Tablet) 650 mg PO Q6H PRN PRN Reason: Fever Or Pain Albuterol Sulfate (Albuterol Sulfate (0.083%) 2.5 Mg/3 Ml Vial.Neb) 2.5 mg INHALE Q3H PRN PRN Reason: sob Last Admin: 01/29/25 02:50 Dose: 2.5 mg Documented By: MICHAEL Aspirin (Aspirin 81 Mg Tab.Chew) 81 mg PO DAILY@0800 [facility] Last Admin: 02/06/25 13:44 Dose: 81 mg Documented By: ABBI Atorvastatin Calcium (Atorvastatin Calcium 20 Mg Tablet) 20 mg PO DAILY [facility] Last Admin: 02/06/25 13:44 Dose: 20 mg Documented By: ABBI Bisacodyl (Bisacodyl 10 Mg Supp.Rect) 10 mg [place] DAILY PRN PRN Reason: Constipation Clonazepam (Clonazepam 0.5 Mg Tablet) 0.5 mg PO BEDTIME [facility] Last Admin: 02/06/25 20:32 Dose: 0.5 mg Documented By: SANGEETA Clonazepam (Clonazepam 0.5 Mg Tablet) 0.25 mg PO BID@0800,1200 [facility] Last Admin: 02/06/25 13:45 Dose: 0.25 mg Documented By: ABBI Divalproex Sodium (Divalproex Sodium Sprinkles 125 Mg ) 500 mg PO TID [facility] Last Admin: 02/06/25 20:32 Dose: 500 mg Documented By: SANGEETA Docusate Sodium (Docusate Sodium 100 Mg/10 Ml Liquid) 100 mg PO DAILY@0800 [facility] Last Admin: 02/06/25 13:44 Dose: 100 mg Documented By: ABBI Enoxaparin Sodium (Enoxaparin Sodium 40 Mg/0.4 Ml Syringe) 40 mg SUBCUT Q24H [facility] Last Admin: 02/06/25 09:06 Dose: 40 mg Documented By: ABBI Lamotrigine (Lamotrigine 25 Mg Tablet) 50 mg PO BID [facility] Last Admin: 02/06/25 20:33 Dose: 50 mg Documented By: SANGEETA Levetiracetam (Levetiracetam 1,000 Mg Tablet) 1,000 mg PO TID [facility] Last Admin: 02/06/25 20:33 Dose: 1,000 mg Documented By: SANGEETA Levothyroxine Sodium (Levothyroxine Sodium 88 Mcg Tablet) 88 mcg PO DAILY@0600 [facility] Last Admin: 02/07/25 06:20 Dose: 88 mcg Documented By: CHEPE Loperamide HCl (Loperamide Hcl 2 Mg Capsule) 2 mg PO Q4H PRN PRN Reason: Diarrhea Multivitamins/Vitamin C (Multivitamin Tablet) 1 tab PO DAILY [facility] Last Admin: 02/06/25 13:44 Dose: 1 tab Documented By: ABBI Pt Own (Felbamate (400 Mg Tablet)) 800 mg PO TID [facility] Last Admin: 02/06/25 20:33 Dose: 800 mg Documented By: SANGEETA Sertraline HCl (Sertraline Hcl 50 Mg Tablet) 50 mg PO BEDTIME [facility] Last Admin: 02/06/25 20:33 Dose: 50 mg Documented By: SANGEETA Sodium Chloride (0.9 % Sodium Chloride Flush 3 Ml Syringe) 3 ml IVFLUSH QSHIFT [facility] Last Admin: 02/07/25 00:24 Dose: 3 ml Documented By: CHEPE Labs 02/02/25 06:06 02/07/25 05:49 Labs: Laboratory Results - last 24 hr 02/03/25 02/07/25 15:00 05:49 Anion Gap 13 Estim Creat Clear Calc 159.8 Estimated GFR > 60 Random Glucose 94 Calcium 9.1 Phosphorus 3.9 Magnesium 2.3 Total Bilirubin 0.2 AST 51 H ALT 70 H Alkaline Phosphatase 53 Total Protein 7.0 Albumin 3.9 Ur Strep pneumoniae Ag Not Detected Assessment and Plan (1) Recurrent aspiration pneumonia: Status: Acute (2) Acute hypoxemic respiratory failure: Status: Acute Plan d12, 59yo nonverbal bed-bound M care home resident with Parkinson's disease, [place]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, seizures, depression, anxiety, aspiration, HLD, hypothyroidism sent in with cough, found to be hypoxic, initially admitted to ICU on BiPAP for respiratory failure, [facility] 01[facility]/25 acute hypoxic respiratory failure and acute encephalopathy and sepsis due to aspiration pneumonia - weaned off O2 02/05, completed piperacillin-tazobactam 01/27-02/05, vanco changed to doxy and completed 02/03-02/05 - blood cultures negative; rhinovirus positive - d/c'ed PPN; d/c'ed MBSS; tolerating baseline diet [NDD1 solids, thin liquids, pills crushed in puree]; no PEG needed; no evidence of refeeding syndrome transaminasemia - improving; was likely due to PNA vs resumption of home meds;recheck next week norovirus - C diff negative; prn loperamide agitation - soft restraints discontinued, was trying to remove IVs + O2 but agitation has resolved epilepsy - changed valproic acid+ levetiracetam back to PO - resumed lamotrigine + felbamate hypothyroidism - changed LT4 IV back to PO mood disorder - resumed sertraline + clonazepam HLD - resumed statin VTE ppx - enoxaparin dispo - care home, does not take pt back on weekend, anticipate return tomorrow In my clinical judgment, the patient requires continued inpatient hospitalization for the following reasons: ready for d/c back to care home, CM to coordinate Total time managing care of this patient today: 35 minutes. Quality Stroke Does the patient have a stroke diagnosis?: No VTE Prior VTE?: No VTE Risk Level:: Medical - moderate - high VTE Device Contraindication: N/A - Device Ordered VTE Drug Contraindication: N/A - Med Ordered
[2025-02-07] MEDS: FELBAMATE 400 MG 800 EACH PO ×2 (09:27→15:37)
[2025-02-07] MEDS: Divalproex Sodium Sprinkles 125 MG CAP.DR.SPR 500 MG PO ×2 (09:30→15:37)
[2025-02-07 15:48] VITALS: BP 96/54; PULSE 89; RESP 18; TEMP 36.2; O2SAT 93
[2025-02-07 19:36] VITALS: BP 120/64; PULSE 86; RESP 16; TEMP 36.2; O2SAT 93
[2025-02-07 19:53] VITALS: BP 100/55
[2025-02-07] MEDS: levETIRAcetam in NaCl (iso-os) 1,000 MG/100 ML PIGGYBACK 400 MG IV (21:56)
[2025-02-08 02:55] VITALS: BP 107/52; PULSE 80; RESP 16; TEMP 36
--- NOTE | 2025-02-08 06:13 | PC.NURSE ---
Urine output for [id number] was 50mL. Bladder scan for 96mL. Patient resistant to care overnight. Will swing at staff and says no . Text out to Dr Leonardo, awaiting response.
[2025-02-08 07:25] VITALS: BP 109/56; PULSE 71; RESP 18; TEMP 36.2; O2SAT 96
--- NOTE | 2025-02-08 11:09 | PM.DS ---
DS: Providers Provider Date of Service: 02/08/25 Date of admission: 01/27/25 02:18 Date of discharge: 02/08/25 Primary care physician: Darrick Vernon NP Consults: 01/27/25 05:40 Consult to Wound Care Routine Reason for consultation: non blanchable area to buttocks 02/01/25 08:18 Consult to Infectious Diseases Routine Consulting Provider[place] [facility] Reason for consultation: vanc/Zosyn previously for aspiration pneumonitis; ?fever from abx 02/01/25 18:49 Consult to General Surgery Routine Consulting Provider: [facility] Reason for consultation: PEG tube placement 02/02/25 17:25 Consult to Pulmonology Routine Consulting Provider: [facility] Reason for consultation: ?complicated pneumonia, hx of recurrent aspiration, still febrile DS: Diagnosis Discharge Diagnosis (1) Recurrent aspiration pneumonia: Status: Acute (2) Acute hypoxemic respiratory failure: Status: Acute (3) Elevated transaminase level: Status: Acute (4) Acute encephalopathy due to infection: Status: Acute (5) Septic shock: Status: Acute (6) Norovirus: Status: Acute DS: Summary Hospital Course Hospital Course: From the history and physical by the admitting ticket writer Montrell NEGRETE 01/27/25: 59-year-old disable patient who comes from a residential and has underlying history of Parkinson's disease, who is nonverbal, bed-bound and has underlying history of seizures, depression, anxiety, aspiration pneumonia, constipation, TIA, hyperlipidemia, proptosis, hypothyroidism, 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 Patient presented to the emergency room with his personnel backup administrator at bedside who reports the patient has been sick for about a day with a what appeared to be a cough for which she was given Robitussin.? Although he is nonverbal he is usually alert which has not been the case this time, throughout yesterday the patient had a wet cough and EMS noted the patient was hypoxic with 81% during their initial assessment, reportedly the patient had been hospitalized with recent pneumonia.? The patient was transported to the ER on supplemental oxygen, evaluation showed the patient had a fever of 105 rectally was tachycardic and hypoxic.? His workup did not show a white count, no renal failure or electrolyte abnormality.? His lactic acid however was 2.1. ?IV Tylenol was given along with 30 mL/kilos of IV fluids and he was also covered with vancomycin and Zosyn.? Respiratory panel was negative.? Even though his blood pressure was initially normal, it had dropped to 70/30 despite of IV fluids. ?Chest x-ray shows bilateral patchy pneumonia worse on the left lung. ?The patient was started on Levophed.? The patient is breathing on his own, nonverbal during my encounter.? The patient will be transferred to the ICU for further care.? custodial chart reviewed and the patient is full code, his guardian is Ms. Clementine Lopez. 59yo nonverbal bed-bound M residential resident with Parkinson's disease, [place]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, seizures, depression, anxiety, aspiration, HLD, hypothyroidism sent in with cough, found to be hypoxic, initially admitted to ICU on BiPAP for respiratory failure and septic shock requiring pressor support. He was weaned off BiPAP and pressors and stepped down to the C 01/29/25. Hospital course by problem: acute hypoxic respiratory failure and acute encephalopathy and sepsis due to aspiration pneumonia - weaned off O2 02/05, completed piperacillin-tazobactam 01/27-02/05, vancomycin changed to doxy and completed 02/03-02/05 - blood cultures negative; rhinovirus positive - was placed on PPN due to encephalopathy but eventual woke up and was tolerating baseline diet [NDD1 solids, thin liquids, pills crushed in puree]; no MBSS or PEG needed; no evidence of refeeding syndrome transaminasemia - improving; was likely due to PNA vs resumption of home meds; recheck next week norovirus - C diff negative; prn loperamide; symptoms resolved He was discharged back to the residential with no medications changes, having completed antibiotics in the hospital. Time Attestation Discharge Coordination Time (in mins): 45 Quality: Safe Use of Opioids Does Pt have an Active Cancer Diagnosis on the Problem List?: No Quality: Stroke Does the patient have a stroke diagnosis?: No Physical Exam Vital Signs: Vital Signs: Last Vital Signs Temp 97.2 F 02/08/25 07:25 Pulse 71 02/08/25 07:25 Resp 18 02/08/25 07:25 BP 109/56 L 02/08/25 07:25 Pulse Ox 96 02/08/25 07:25 O2 Del Method Room Air 02/08/25 07:25 O2 Flow Rate 3 02/04/25 20:00 BMI result Body Mass Index 27.7 Gen: in no acute distress HEENT: sclera anicteric, moist mucus membranes, proptosis Neck: supple Lungs: clear bilaterally Heart: regular rate and rhythm, no murmurs Abd: soft, non-tender, non-distended Ext: no edema Skin: warm/well-perfused Neuro: awake, at baseline per residential staff Psych: impaired insight DS: Data Data Completed and Pending Completed studies during hospitalization [Text1]: Laboratory Results WBC 5.4 X10*3/uL (4.8-10.8) 02/02/25 06:06 RBC 3.74 X10*6/uL (4.60-5.80) L 02/02/25 06:06 Hgb 10.9 g/dl (14.0-18.0) L 02/02/25 06:06 Hct 31.8 % (42.0-52.0) L 02/02/25 06:06 MCV 85.0 fL (80.0-98.0) 02/02/25 06:06 MCH 29.1 pg (27.0-33.0) 02/02/25 06:06 MCHC 34.3 g/dl (31.0-36.0) 02/02/25 06:06 RDW 13.1 % (11.0-16.0) 02/02/25 06:06 Plt Count 333 X10*3/uL (160-400) D 02/02/25 06:06 MPV 9.9 fL (9.4-12.4) 02/02/25 06:06 Immature Gran % (Auto) 0.5 % (0.0-0.4) H 01/29/25 05:28 Neut % (Auto) 71.6 % (45-73) 01/29/25 05:28 Lymph % (Auto) 12.8 % (20-40) L 01/29/25 05:28 Giles % (Auto) 12.4 % (2-11) H 01/29/25 05:28 Eos % (Auto) 2.5 % (0-4) 01/29/25 05:28 Baso % (Auto) 0.2 % (0-2) 01/29/25 05:28 Lymph # (Auto) 0.7 X10*3/uL (1.2-4.9) L 01/29/25 05:28 Giles # (Auto) 0.7 X10*3/uL (0.1-1.2) 01/29/25 05:28 Eos # (Auto) 0.1 X10*3/uL (0.0-0.4) 01/29/25 05:28 Baso # (Auto) 0.0 X10*3/uL (0.0-0.2) 01/29/25 05:28 Abs Immat Gran (auto) 0.03 X10*3/uL (0.00-0.03) 01/29/25 05:28 Absolute Neuts (auto) 4.0 x10*3/uL (2.0-8.3) 01/29/25 05:28 Absolute Nucleated RBC 0.000 X10*3/uL (0.0-0.012) 02/02/25 06:06 Nucleated RBC % (auto) 0.0 /100WBC (0.0-0.2) 02/02/25 06:06 Smear Tech's Comments VERIFIED 01/27/25 03:05 Hold Purple Top SEE NOTE 02/06/25 05:39 VBG pH 7.53 (7.32-7.43) H 01/31/25 00:55 VBG pCO2 40 mmHg 01/31/25 00:55 VBG pO2 165 mmHg 01/31/25 00:55 VBG HCO3 34 mmol/L (22-26) H 01/31/25 00:55 VBG O2 Saturation 100.0 % 01/31/25 00:55 VBG Base Excess 11.0 mmol/L 01/31/25 00:55 Sodium 143 mmol/L (135-145) 02/07/25 05:49 Potassium 3.6 mmol/L (3.3-5.1) 02/07/25 05:49 Chloride 108 mmol/L (96-108) 02/07/25 05:49 Carbon Dioxide 26 mmol/L (22-29) 02/07/25 05:49 Anion Gap 13 (12-20) 02/07/25 05:49 BUN 26 mg/dL (9-16) H 02/07/25 05:49 Creatinine 0.53 mg/dL (0.5-1.4) 02/07/25 05:49 Estim Creat Clear Calc 159.8 02/07/25 05:49 Estimated GFR > 60 02/07/25 05:49 Random Glucose 94 mg/dL (60-115) 02/07/25 05:49 Lactic Acid 0.7 mmol/L (0.5-2.0) 01/31/25 01:50 Lactic Acid F/U @ 2Hr 1.6 mmol/L (0.5-2.0) 01/27/25 03:05 Calcium 9.1 mg/dL (8.4-10.2) 02/07/25 05:49 Phosphorus 3.9 mg/dL (2.7-4.5) 02/07/25 05:49 Magnesium 2.3 mg/dL (1.6-2.6) 02/07/25 05:49 Total Bilirubin 0.2 mg/dL (0.0-1.0) 02/07/25 05:49 AST 51 U/L (5-37) H 02/07/25 05:49 ALT 70 U/L (0-40) H 02/07/25 05:49 Alkaline Phosphatase 53 U/L (39-117) 02/07/25 05:49 Troponin I High Sens 6.0 ng/L (<3.5-35.0) 01/26/25 23:45 Total Protein 7.0 g/dL (6.5-8.0) 02/07/25 05:49 Albumin 3.9 g/dL (3.5-5.0) 02/07/25 05:49 Triglycerides 65 mg/dL (<150) 01/29/25 11:08 Procalcitonin 0.05 ng/mL 02/03/25 06:56 Urine Color Yellow 02/03/25 15:00 Urine Appearance Clear 02/03/25 15:00 Urine pH 7.0 (5.0-9.0) 02/03/25 15:00 Ur Specific [place] 1.015 (1.005-1.025) 02/03/25 15:00 Urine Protein Negative mg/dL (Neg-Trace) 02/03/25 15:00 Urine Glucose (UA) Negative mg/dL (Negative) 02/03/25 15:00 Urine Ketones Negative mg/dL (Negative) 02/03/25 15:00 Urine Blood Negative (Negative) 02/03/25 15:00 Urine Nitrite Negative (Negative) 02/03/25 15:00 Ur Leukocyte Esterase Negative (Negative) 02/03/25 15:00 Nasal Screen MRSA (PCR) NEGATIVE (Negative) 02/01/25 22:15 Nasal S. aureus Screen NEGATIVE (Negative) 02/01/25 22:15 Nasal MRSA/S.aureus Interp SEE NOTE 02/01/25 22:15 Stl C. cayetanensis PCR Not Detected (Not Detect.) 02/05/25 07:58 Stool Rotavirus A PCR Not Detected (Not Detect.) 02/05/25 07:58 Stl Adenov F 40/41 PCR Not Detected (Not Detect.) 02/05/25 07:58 Stool Astrovirus (PCR) Not Detected (Not Detect.) 02/05/25 07:58 Stool Campylobacter PCR Not Detected (Not Detect.) 02/05/25 07:58 Stool Cryptosporidium PCR Not Detected (Not Detect.) 02/05/25 07:58 Stl Sh Tox Pr E STEC PCR Not Detected (Not Detect.) 02/05/25 07:58 Stool E coli O157 PCR Not applicable (Not Detect.) 02/05/25 07:58 Stl Enterotoxigenic E PCR Not Detected (Not Detect.) 02/05/25 07:58 Stool EPEC (PCR) Not Detected (Not Detect.) 02/05/25 07:58 Stool EAEC (PCR) Not Detected (Not Detect.) 02/05/25 07:58 Stl E. histolytica PCR Not Detected (Not Detect.) 02/05/25 07:58 Stool Giardia Lamblia PCR Not Detected (Not Detect.) 02/05/25 07:58 Stl P. shigelloides PCR Not Detected (Not Detect.) 02/05/25 07:58 Stool Salmonella PCR Not Detected (Not Detect.) 02/05/25 07:58 Stool Sapovirus (PCR) Not Detected (Not Detect.) 02/05/25 07:58 Stl Shigella/EIEC PCR Not Detected (Not Detect.) 02/05/25 07:58 St Y.enterocolitica PCR Not Detected (Not Detect.) 02/05/25 07:58 Stool Vibrio (PCR) Not Detected (Not Detect.) 02/05/25 07:58 Stl Vibrio cholerae PCR Not Detected (Not Detect.) 02/05/25 07:58 Stl Norovirus GI/GII PCR Detected (Not Detect.) A 02/05/25 07:58 Vancomycin Trough 20.7 mcg/mL (10.0-20.0) H 02/02/25 06:06 Random Vancomycin < 2.0 mcg/mL (15-20) L 01/30/25 18:24 Valproic Acid 97.9 mcg/mL (50.0-100.0) 01/27/25 05:36 Respiratory Panel [place] See Note 01/27/25 04:00 Adenovirus (Rapid PCR) Not Detected (Not Detect.) 01/27/25 04:00 B.pert (TEM-PCR) Not Detected (Not Detect.) 01/27/25 04:00 B.parapertussis DNA PCR Not Detected (Not Detect.) 01/27/25 04:00 C. pneumoniae DNA (PCR) Not Detected (Not Detect.) 01/27/25 04:00 C. difficile Tox B Gene NEGATIVE (Negative) 02/05/25 07:58 Coronavirus OC43 (PCR) Not Detected (Not Detect.) 01/27/25 04:00 Coronavirus HKU1 (PCR) Not Detected (Not Detect.) 01/27/25 04:00 Coronavirus 229E (PCR) Not Detected (Not Detect.) 01/27/25 04:00 Coronavirus NL63 (PCR) Not Detected (Not Detect.) 01/27/25 04:00 Human Metapneumovir PCR Not Detected (Not Detect.) 01/27/25 04:00 Influenza A (RT-PCR) Not Detected (Not Detect.) 01/27/25 04:00 Influenza A (H1) PCR Not Detected (Not Detect.) 01/27/25 04:00 Influ A (H1/09) PCR Not Detected (Not Detect.) 01/27/25 04:00 Influenza A (H3) PCR Not Detected (Not Detect.) 01/27/25 04:00 Influenza B (RT-PCR) Not Detected (Not Detect.) 01/27/25 04:00 Ur L.pneumophila Ag Not Detected (Not Detected) 02/03/25 15:00 M. pneumoniae (PCR) Not Detected (Not Detect.) 01/27/25 04:00 Parainfluenza 1 (PCR) Not Detected (Not Detect.) 01/27/25 04:00 Parainfluenza 2 (PCR) Not Detected (Not Detect.) 01/27/25 04:00 Parainfluenza 3 (PCR) Not Detected (Not Detect.) 01/27/25 04:00 Parainfluenza 4 (PCR) Not Detected (Not Detect.) 01/27/25 04:00 RSV (PCR) Not Detected (Not Detect.) 01/27/25 04:00 Entero/Rhino (PCR) Detected (Not Detect.) A 01/27/25 04:00 SARS-CoV-2 RNA (RT-PCR) Not Detected (Not Detect.) 01/27/25 04:00 Ur Strep pneumoniae Ag Not Detected (Not Detected) 02/03/25 15:00 Impressions Chest X-Ray 01/28/25 09:45 IMPRESSION: 1. Low lung volumes with significant worsening of diffuse opacities bilaterally, most confluent in the lung bases. Suspect a small left effusion. Findings significantly worsened from the prior radiograph of 01/27/2025. Electronically signed by: Daniel Hernandez MD 01/28/2025 10:[address] 02/02/25 09:28 IMPRESSION: Stable bilateral multifocal pneumonia and bilateral pleural effusions with airspace disease most advanced in the right upper lobe . Stable degenerative changes in the spine that could related to ankylosing spondylitis versus diffuse idiopathic skeletal hyperostosis (DISH). Fleischner guidelines were followed. Electronically signed by: Anuj Gross MD 02/02/2025 10:19 AM EDT Discharge Plan Discharge Anticipated Discharge Date/Time: 02/08/25 11:00 Patient Disposition: Xfer Other Discharge Diagnosis: hypoxia and encephalopathy due to aspiration pneumonia; resolved Referrals: Darrick Vernon NP [Primary Care Provider, Internal Medicine] - 1 Week Discharge Medications: Continued levetiracetam 500 mg tablet 1,000 mg PO TID clonazepam 0.5 mg Tablet 0.5 mg PO BEDTIME Rx Instructions: administer 30 minutes before bedtime clonazepam 0.5 mg Tablet 0.25 mg PO BID@0800,1200 felbamate 400 mg tablet 800 mg PO TID simvastatin 40 mg tablet 40 mg PO BEDTIME levothyroxine 88 mcg tablet 88 mcg PO DAILY@0600 sertraline 50 mg tablet 50 mg PO BEDTIME divalproex [Depakote Sprinkles] 125 mg capsule, delayed rel sprinkle 500 mg PO TID cholecalciferol (vitamin D3) 1,250 mcg (50,000 unit) capsule 1,250 mcg PO WE@0900 Desitin Daily Defense 13 % cream 1 appl topical TID PRN (Reason: Rash) acetaminophen 325 mg Tablet 650 mg PO Q6H PRN (Reason: Fever Or Pain) Rx Instructions: not to exceed 3000mg in 24 hours guaifenesin 100 mg/5 mL Liquid 200 mg PO Q6H PRN (Reason: Cough) magnesium hydroxide [Milk of Magnesia] 400 mg/5 mL suspension 30 ml PO Q OTHER DAY bisacodyl [OneLAX Bisacodyl] 10 mg suppository 10 mg [place] DAILY PRN (Reason: Constipation) Rx Instructions: If no BM in 3 days Enema Disposable 19-7 gram/118 mL enema 118 ml [place] DAILY PRN (Reason: Constipation) Rx Instructions: on day 4 of no BM polyethylene glycol 3350 17 gram/dose powder 17 g PO DAILY Rx Instructions: hold for loose stools docusate sodium 50 mg/5 mL Liquid 100 mg PO DAILY@0800 aspirin 81 mg Tablet,Chewable 81 mg PO DAILY@0800 Nayzilam 5 mg/spray (0.1 mL) [place],Non-Aerosol 5 mg INTRANASAL Q10M MDD 10mg/24h PRN (Reason: Seizures) bacitracin 500 unit/gram Ointment 1 appl TOPICAL BID PRN (Reason: wounds) lamotrigine 25 mg Tablet 50 mg PO BID Qty: 270 0RF therapeutic multivitamin Tablet 1 tab PO DAILY Refresh P.M. 57.3-42.5 % Ointment 1 appl ophthalmic (eye) BEDTIME Discharge Orders: Discharge Order (Routine); Ordered 02/08/25 Ordered By: Yeison Banks Diet: Advance to usual diet Activity on Discharge: As tolerated Stand Alone Forms: Patient Portal Discharge page Print Language: Prydeinig Other Ambulatory Orders: Liver Panel (Routine) Timeframe: 1 Week Facility: [facility] - Location: Laboratory Ordered By: Yeison Banks Care Plan Goals: recovery from hospitalization Health Concerns: hypoxia and encephalopathy due to aspiration pneumonia; resolved Plan of Treatment: completed antibiotics and weaned off oxygen no changes made to chronic medications Please follow up with your primary care doctor within 1 week. Return to the hospital if you experience recurrent or worsening symptoms. repeat LFTs in 1 week Assessment: See Discharge Summary.
--- NOTE | 2025-02-08 11:22 | MHC.CM.PN ---
Patient medically cleared for dc back to custodial. BLS transport scheduled for 1pm. LM for guardian to inform of dc. Staff at bedside and aware of/ agreeable to dc.
[2025-02-08 13:03] VITALS: BP 93/52; PULSE 92; RESP 18; TEMP 36.1
--- NOTE | 2025-02-08 13:52 | PC.NURSE ---
Home medications returned upon discharge. Medications given to EMS transport personnel for return home per request of intermediate staff member at bedside.
== END 2025-02-08 13:59 | disposition other institution (70) | DRG 720 ==
LOC: HO.ED 01-27 01:46 → HO.EDOVER 01-27 02:48 → HO.ICU 01-27 02:51 → HO.IMC 01-27 16:48 → HO.ICU 01-27 17:21 → HO.IMC 01-29 19:32 → HO.S3 02-05 16:04
PROVIDERS: Hospitalist; Internal Medicine Critical Care Medicine; Student in an Organized Health Care Education/Training Program; Admitting Provider Physician Assistant Medical; Emergency Provider Emergency Medicine; PCP Nurse Practitioner Family; Visit Provider Family Medicine
DX: A41.9 Sepsis, unspecified organism (principal); J96.01 Acute respiratory failure with hypoxia; J69.0 Pneumonitis due to inhalation of food and vomit; R65.21 Severe sepsis with septic shock; G92.8 Other toxic encephalopathy; G93.41 Metabolic encephalopathy; G40.811 Lennox-Gastaut syndrome, not intractable, with status epilepticus; E83.39 Other disorders of phosphorus metabolism; A08.11 Acute gastroenteropathy due to Norwalk agent; Z74.01 Bed confinement status; E85.0 Non-neuropathic heredofamilial amyloidosis; E83.42 Hypomagnesemia; E03.9 Hypothyroidism, unspecified; L89.322 Pressure ulcer of left buttock, stage 2; D64.9 Anemia, unspecified; G20.A1 Parkinson's disease without dyskinesia, without mention of fluctuations; R45.1 Restlessness and agitation; F39 Unspecified mood [affective] disorder; E78.5 Hyperlipidemia, unspecified; E87.6 Hypokalemia; B97.89 Other viral agents as the cause of diseases classified elsewhere; R13.10 Dysphagia, unspecified; E87.1 Hypo-osmolality and hyponatremia; T42.6X5A Adverse effect of other antiepileptic and sedative-hypnotic drugs, initial encounter; Z78.1 Physical restraint status; Z20.822 Contact with and (suspected) exposure to COVID-19; Z79.890 Hormone replacement therapy; Z79.899 Other long term (current) drug therapy
CPT/HCPCS: 36415; 71045; 71250; 80053; 80164; 80202; 81003; 82803; 83605; 83735; 84100; 84145; 84478; 84484; 85025; 85027; 87040; 87070; 87086; 87205; 87449; 87493; 87507; 87633; 87640; 87641; 87899; 92526; 92610; 93005; 94640; 99285; J0131; J0651; J1271; J1650; J1885; J1953; J2405; J2470; J2543; J3373; J3374; J3475; J3480; J7120; P9047

== ENCOUNTER → 2025-01-26 23:17 | Outpatient (BNV) | payer OTHER, SELFPAY | PROVIDERS: Admitting Provider Physician Assistant Medical; Emergency Provider Emergency Medicine; PCP Nurse Practitioner Family; Visit Provider Internal Medicine Cardiovascular Disease | DX: R00.0 Tachycardia, unspecified (principal) | CPT/HCPCS: 93010 ==

== ENCOUNTER 2025-01-27 02:18 | Outpatient (BNV) | payer OTHER, SELFPAY | END 2025-02-01 18:03 | PROVIDERS: Admitting Provider Physician Assistant Medical; Emergency Provider Emergency Medicine; PCP Nurse Practitioner Family; Visit Provider Radiology Neuroradiology | DX: J90 Pleural effusion, not elsewhere classified (principal) | CPT/HCPCS: 71250 ==

== ENCOUNTER 2025-01-27 02:18 | Outpatient (BNV) | payer OTHER, SELFPAY | END 2025-02-02 07:00 | PROVIDERS: Admitting Provider Physician Assistant Medical; Emergency Provider Emergency Medicine; PCP Nurse Practitioner Family; Visit Provider Radiology Diagnostic Radiology | DX: J18.8 Other pneumonia, unspecified organism (principal); J90 Pleural effusion, not elsewhere classified; M51.34 Other intervertebral disc degeneration, thoracic region | CPT/HCPCS: 71250 ==

== ENCOUNTER 2025-01-27 02:18 | Outpatient (BNV) | payer OTHER, SELFPAY | END 2025-01-28 09:45 | PROVIDERS: Admitting Provider Physician Assistant Medical; Emergency Provider Emergency Medicine; PCP Nurse Practitioner Family; Visit Provider Radiology Diagnostic Radiology | DX: J18.9 Pneumonia, unspecified organism (principal) | CPT/HCPCS: 71045 ==

== ENCOUNTER → 2025-01-27 02:18 | Outpatient (BNV) | payer OTHER, SELFPAY | PROVIDERS: Admitting Provider Physician Assistant Medical; Emergency Provider Emergency Medicine; PCP Nurse Practitioner Family; Visit Provider Physician Assistant Medical | DX: J69.0 Pneumonitis due to inhalation of food and vomit (principal); A41.9 Sepsis, unspecified organism; R65.21 Severe sepsis with septic shock; E87.1 Hypo-osmolality and hyponatremia | CPT/HCPCS: 99291; 99292 ==

== ENCOUNTER → 2025-01-27 02:18 | Outpatient (BNV) | payer OTHER, SELFPAY | PROVIDERS: Admitting Provider Physician Assistant Medical; Emergency Provider Emergency Medicine; PCP Nurse Practitioner Family; Visit Provider Physician Assistant Surgical | DX: J69.0 Pneumonitis due to inhalation of food and vomit (principal) | CPT/HCPCS: 99222; 99232 ==

== ENCOUNTER → 2025-01-27 02:18 | Outpatient (BNV) | payer OTHER, SELFPAY | PROVIDERS: Admitting Provider Physician Assistant Medical; Emergency Provider Emergency Medicine; PCP Nurse Practitioner Family; Visit Provider Internal Medicine | DX: J69.0 Pneumonitis due to inhalation of food and vomit (principal) | CPT/HCPCS: 99222 ==

== ENCOUNTER → 2025-01-27 02:18 | Outpatient (BNV) | payer OTHER, SELFPAY | PROVIDERS: Admitting Provider Physician Assistant Medical; Emergency Provider Emergency Medicine; PCP Nurse Practitioner Family; Visit Provider Internal Medicine Pulmonary Disease | DX: J69.0 Pneumonitis due to inhalation of food and vomit (principal); J96.01 Acute respiratory failure with hypoxia | CPT/HCPCS: 99223 ==

== ENCOUNTER → 2025-01-27 02:18 | Outpatient (BNV) | payer OTHER, SELFPAY | PROVIDERS: Admitting Provider Physician Assistant Medical; Emergency Provider Emergency Medicine; PCP Nurse Practitioner Family; Visit Provider Student in an Organized Health Care Education/Training Program | DX: J69.0 Pneumonitis due to inhalation of food and vomit (principal); J96.01 Acute respiratory failure with hypoxia | CPT/HCPCS: 99232; 99233; 99239 ==

== ENCOUNTER → 2025-01-27 | Outpatient (BNV) | payer OTHER, SELFPAY | PROVIDERS: Emergency Provider Emergency Medicine; PCP Nurse Practitioner Family; Visit Provider Radiology Diagnostic Radiology | DX: R50.9 Fever, unspecified (principal) | CPT/HCPCS: 71045 ==

== ENCOUNTER 2025-02-14 13:59 | Inpatient (IN) | payer OTHER, SELFPAY ==
--- NOTE | ~2025-02-14 | CT_ITS ---
CLINICAL HISTORY: Pneumonia CT chest without IV contrast. COMPARISON: CT chest dated 02/02/25 at 09:28 EDT FINDINGS: No supraclavicular or axillary lymphadenopathy. Ascending aorta and main pulmonary artery are normal in caliber. No pericardial effusion. Coronary artery calcifications present within the LAD and circumflex. Aortic annular and valve calcifications. Normal esophagus. No mediastinal lymphadenopathy. No pleural effusion. Minimal atelectasis along the left lung base. Trachea and central airways are clear. No significant bronchial wall thickening. No bronchiectasis. Several small calcified granulomas present bilaterally. Flowing marginal osteophytes present throughout the thoracic spine. No acute fracture or suspicious bone lesion. IMPRESSION: 1. No acute intrathoracic findings. Interval near-complete resolution of previously seen areas of consolidation and ground-glass with minimal consolidation along the posterior left lower lobe likely representing atelectasis. This document has been electronically signed by: Brendon Schuster MD on 02/14/2025 19:39:57
--- NOTE | ~2025-02-14 | CT_ITS ---
CLINICAL HISTORY: abd pain CT abdomen and pelvis without IV contrast. COMPARISON: CT abdomen and pelvis dated 06/08/23 at 10:06 EST FINDINGS: Minimal atelectasis along the left lung base. Coronary artery calcifications present within the LAD and circumflex. Aortic annular calcifications. Normal gallbladder. Noncontrast appearance of the liver, spleen, pancreas and adrenal glands are unremarkable. No renal or ureteral calculus. No hydronephrosis. Normal appendix. Moderate colonic stool burden within the cecum and ascending colon. No bowel obstruction. No mesenteric or retroperitoneal lymphadenopathy. Mild aortoiliac atherosclerotic vascular calcifications. Urinary bladder appears thick-walled and contracted. No inguinal lymphadenopathy. Flowing marginal osteophytes present throughout the lower thoracic and upper lumbar spine. No acute fracture. IMPRESSION: 1. No evidence of renal obstruction. No renal or ureteral calculus bilaterally. 2. Thickening of the urinary bladder mucosa. This could be secondary to degree of contraction. Cystitis however could look similar. Recommend correlation clinically. 3. Moderate colonic stool burden within the cecum and ascending colon. No bowel obstruction. This document has been electronically signed by: Brendon Schuster MD on 02/14/2025 19:36:26
--- NOTE | ~2025-02-14 | XR_ITS ---
CLINICAL HISTORY: Agitation, pneumonia? Single view of the chest. COMPARISON: XR chest dated 01/28/25 at 09:41 EDT FINDINGS: Technically limited study secondary to patient kyphosis and arm position overlapping portions of the chest. Low lung volumes. Normal heart size. Streaky retrocardiac opacities. Crowding of the bronchovascular markings, likely secondary to low lung volumes. No definite pleural effusion. No pneumothorax. Osteopenia. No acute fracture. IMPRESSION: 1. Streaky retrocardiac opacities may represent atelectasis, aspiration pneumonitis or pneumonia. 2. Low lung volumes. This document has been electronically signed by: Brendon Schuster MD on 02/14/2025 16:22:59
[2025-02-14 14:16] VITALS: BP 107/50; PULSE 63; RESP 18; TEMP 36.1; O2SAT 94; BMI 31.7
--- NOTE | 2025-02-14 14:28 | ECG_ITS ---
Test Reason : CHECK QTC Blood Pressure : */* mmHG Vent. Rate : 70 BPM Atrial Rate : 70 BPM P-R Int : 146 ms QRS Dur : 84 ms QT Int : 372 ms P-R-T Axes : 48 9 9 degrees QTcB Int : 401 ms Normal sinus rhythm Normal ECG When compared with ECG of 27-Jan-2025 00:45, Vent. rate has decreased by 41 bpm Non-specific change in ST segment in Anterior leads T wave inversion no longer evident in Anterior leads Referred By: Zayra Burns Electronically Signed By: RAÚL ANGULO MD
--- NOTE | 2025-02-14 14:28 | ED.GENADULT ---
HPI - General Adult General Chief complaint: Psychiatric Symptoms Stated complaint: AGITATION Time Seen by Provider: 02/14/25 14:22 Source: EMS and old records reviewed Mode of arrival: EMS Limitations: altered mental status History of Present Illness ED Provider: DR. Burns HPI narrative: A 59-year-old male with pertinent history of epilepsy, manjinder-gastaut syndrome, hypothyroidism, CVA, dysphagia, aspiration pneumonia, mood disorder, Parkinson's disease, HLD, nonverbal at baseline came in form shelter for evaluation of decreased p.o. intake and decreased of his baseline mental status, reportedly unable to give the patient his 14:00 scheduled medication and did not want to eat his lunch. Non historian at baseline. Legal guardian of the patient Mekhi Antunez at phone # [phone]. Was contacted and updated on patient's status. Stated that the patient is a full code. Related Data Home Medications ?Medication ?Instructions ?Recorded ?Confirmed acetaminophen 325 mg tablet 650 mg PO Q6H PRN Fever Or Pain 04/01/23 02/15/25 cholecalciferol (vitamin D3) 1,250 1,250 mcg PO WE@0900 04/01/23 02/15/25 mcg (50,000 unit) capsule clonazepam 0.5 mg tablet 0.25 mg PO BID@0800,1200 04/01/23 02/15/25 clonazepam 0.5 mg tablet 0.5 mg PO BEDTIME 04/01/23 02/15/25 divalproex 125 mg capsule,delayed 500 mg PO TID 04/01/23 02/15/25 release sprinkle (Depakote Sprinkles) felbamate 400 mg tablet 800 mg PO TID 04/01/23 02/15/25 levetiracetam 500 mg tablet 1,000 mg PO TID 04/01/23 02/15/25 levothyroxine 88 mcg tablet 88 mcg PO DAILY@0600 04/01/23 02/15/25 sertraline 50 mg tablet 50 mg PO BEDTIME 04/01/23 02/15/25 simvastatin 40 mg tablet 40 mg PO BEDTIME 04/01/23 02/15/25 zinc oxide 13 % topical cream 1 appl topical TID PRN Rash 04/01/23 02/15/25 (Desitin Daily Defense) bisacodyl 10 mg rectal suppository 10 mg RI DAILY PRN Constipation 06/08/23 02/15/25 (OneLAX Bisacodyl) guaifenesin 100 mg/5 mL oral liquid 200 mg PO Q6H PRN Cough 06/08/23 02/15/25 magnesium hydroxide 400 mg/5 mL 30 ml PO Q OTHER DAY Constipation 06/08/23 02/15/25 oral suspension (Milk of Magnesia) polyethylene glycol 3350 17 17 g PO DAILY 06/08/23 02/15/25 gram/dose oral powder sodium phosphates 19 gram-7 118 ml RI DAILY PRN Constipation 06/08/23 02/15/25 gram/118 mL enema (Enema Disposable) aspirin 81 mg chewable tablet 81 mg PO DAILY@0800 12/17/23 02/15/25 bacitracin 500 unit/gram topical 1 appl topical BID PRN wounds 12/17/23 02/15/25 ointment docusate sodium 50 mg/5 mL oral 100 mg PO DAILY@0800 12/17/23 02/15/25 liquid midazolam 5 mg/spray (0.1 mL) 5 mg intranasal Q10M PRN Seizures 12/17/23 02/15/25 nasal spray (Nayzilam) therapeutic multivitamin 1 tab PO DAILY 01/27/25 02/15/25 white petrolatum-mineral oil 57.3 1 appl ophthalmic (eye) BEDTIME 01/27/25 02/15/25 %-42.5 % eye ointment (Refresh P.M.) Previous Rx's ?Medication ?Instructions ?Recorded lamotrigine 25 mg tablet 50 mg (2 x 25 mg) PO BID #270 tabs 12/23/23 Allergies Allergy/AdvReac Type Severity Reaction Status Date / Time erythromycin base Allergy Unknown HIVES Verified 02/14/25 14:19 (ERYTHROMYCIN BASE) gentamicin (GENTAMICIN) Allergy Unknown UNKNOWN Verified 02/14/25 14:19 Macrolide Antibiotics Allergy Unknown UNKNOWN Verified 02/14/25 14:19 (MACROLIDE ANTIBIOTICS) KETOLIDES Allergy Unknown UNKNOWN Uncoded 02/14/25 14:19 Review of Systems Review of Systems: All other systems are reviewed and are negative Constitutional: Reports as per HPI and Reports no additional constitutional complaints Eyes: Reports as per HPI and Reports no additional eye complaints Reports system reviewed and no additional complaints, except as documented Cardiovascular: Reports as per HPI and Reports no additional cardiovascular complaints Respiratory: Reports as per HPI and Reports no additional respiratory complaints Gastrointestinal: Reports as per HPI and Reports no additional gastrointestinal complaints Genitourinary: Reports no additional female genitourinary complaints Musculoskeletal: Reports no additional musculoskeletal complaints Skin/Breast: Reports system reviewed and no additional complaints, except as docu Psychiatric: Reports no additional psychiatric complaints Endocrine: Reports no additional endocrine complaints Hematologic/Lymphatic: Reports no additional hematologic/lymphatic complaints Allergic/Immunologic: Reports no additional allergic/immunologic complaints Reports system reviewed and no additional complaints, except as documented and Reports Abnormal speech present [facility] Past Medical History Medical History Fever Epileptic seizure Depression Generalized anxiety disorder Ganglion cyst Aspiration pneumonia Parkinson disease Dysphagia Anxiety Constipation TIA (transient ischemic attack) Hyperlipidemia Glaucoma Hyperopia of left eye Proptosis Aphakia, both eyes Osteopenia Hypothyroidism Manjinder-Gastaut syndrome, intractable, with status epilepticus Social History Social History Household Members: Other Household Members Other:: shelter members Housing: Other Housing Other:: shelter Do you presently have visiting nurse or other home services: No Unable to assess alcohol history related to: Unknown Comment: [facility] staff at bedside. Patient Tobacco Use Status: Never used Tobacco e-Cigarette/Vaping Use: Never Used Second Hand Smoke Exposure: No Advance Directives: Yes Advance Directives on File: Yes Advance Directives Date on File: 04/01/22 service: No Physical Exam ED Vital Signs: Vital Signs - 24 hr 02/14/25 14:16 02/14/25 17:00 02/14/25 17:00 Temperature 97 F Pulse Rate 63 77 75 Respiratory Rate 18 17 Blood Pressure 107/50 L 140/77 H 112/78 Pulse Oximetry 94 93 Oxygen Delivery Method Room Air Room Air 02/14/25 17:00 02/14/25 20:00 02/14/25 22:00 Temperature 97.9 F Pulse Rate 74 76 Respiratory Rate 17 17 Blood Pressure Pulse Oximetry Oxygen Delivery Method 02/15/25 00:00 02/15/25 04:00 02/15/25 08:30 Temperature Pulse Rate 78 60 57 Respiratory Rate 14 16 12 Blood Pressure 116/43 L Pulse Oximetry 96 Oxygen Delivery Method Room Air BMI result Body Mass Index 31.7 Vital signs have been reviewed and appear to be correct. Blood pressure elevated. Heart rate normal. Respiratory rate normal. Temperature normal. Oxygen saturation normal. Appearance: Making incomprehensible vocalization, get agitated if he gets touched or manipulated which limit the physical exam and placing the IV access, open his eyes, No acute distress. Head: Normal external exam. Normocephalic. Atraumatic. No Guerrero signs noted. No raccoon eyes noted Eyes: PERRLA. EOMI. Conjunctiva and sclera normal. Eyelids normal. ENT: TM's Normal. Pharynx normal. Uvula midline. Moist mucous membranes. No trismus noted. No drooling noted. No muffled voice noted. Neck: Normal inspection. Neck supple. FROM. No adenopathy. Thyroid Normal. No meningeal signs. No neck mass noted. CVS: Normal heart rate and rhythm. Heart sound normal. No murmurs noted. Pulses normal throughout. Respiratory: No respiratory distress. Painless inspiration. Breath sounds normal. No wheezes/rales/rhonchi noted. Chest nontender. No accessory muscle usage noted or decreased air movement noted. Abdomen: Soft and nontender. Bowel sounds normal in all 4 quadrants. No distention noted. No organomegaly noted. No visible injury noted. Back: No CVA tenderness. Full range of motion noted. Skin: Skin warm and dry. Normal skin color. Normal skin turgor. No rashes/lesions/lacerations noted. Extremities: No lower extremity edema. Extremities exhibit normal range of motion. Extremities nontender. Neuro: Cranial nerve exam: II-XII are grossly intact No motor deficit. No sensory deficit. Reflexes normal. Course Reevaluation(s) Reevaluation #1: 59-year-old male history of manjinder-gastaut syndrome and severe cognitive impairment patient came in from shelter after refusing to take his medication, decreased p.o. intake. Patient is uncooperative get agitated fighting and resisting the staff to get blood test/x-rays done patient require ketamine in order to obtain IV access, get the blood workup, chest x-ray and place straight catheter. will cover with broad-spectrum antibiotic and IV fluids. Time: 16:00 Reevaluation #2: Dr. Burns's progress note: Medical workup is unremarkable except for elevated lactic acid no SIRS criteria, no source of infection or sepsis at this point, patient is a poor historian will consider CT of the chest/abdomen/pelvis, secondary to intellecutual impariment IV ketamine was used to get the CT Studies done; referr to conscious sedation procedure note. If the CT is negative patient can be evaluated by care team. signed out to Dr. Shepard. Time: 16:55 Reevaluation #3: I, Dr. Shepard have take over the care of this patient, I reviewed pertinent blood work and imaging, re-evaluated the patient when appropriate. I agree with the workup as above, we will continue updating shelter team, thus far workup has been reassuring except for lactate 4.1, possibly retrocardiac consolidation though chest x-ray much better than prior aspiration pneumonia but that was on the right side, due to his intellectual disability he has required ketamine sedation, after medical workup is complete care team we will be involved to facilitate return to shelter if workup is unremarkable. I spoke with John his svp group director, she told me that patient has no family members has legal guardian who is not working today and we will be contacted by the shelter team tomorrow to update of the ER visit Time: 17:09 Additional Reevaluation(s): there again is no source of infection he has possible 1/2 GPC initial but no change in VS, lactic acid cleared CT scans and urine are negative will observe and monitor cultures - or any change in clinical status continue to observe Bri Ba, 02/15/25 0909 1225pm had GNR in urine has already received zosyn yesterday I have ordered IV ceftriaxone as well. I do not think he is medically cleared for psych at this time. Will admit to hospitalist Bri Ba DO 02/15/25 1243 Medications Administered Discontinued Medications Generic Name Dose Route Start Last Admin Trade Name Freq PRN Reason Stop Dose Admin Piperacillin Sod/Tazobactam 50 mls @ 100 mls/hr 02/14/25 15:38 02/14/25 16:58 Sod 3.375 gm/ Sodium Chloride IV 02/14/25 16:07 Infused ONCE ONE Infusion Sodium Chloride 1,000 mls @ 999 mls/hr 02/14/25 15:38 02/14/25 17:00 Ns IV 02/14/25 16:38 Infused .Q1H1M ONE Infusion Ketamine HCl 50 mg 02/14/25 16:00 02/14/25 15:22 Ketamine Hcl/Ns 50 Mg/5 Ml Syringe IVPUSH 02/14/25 16:01 50 mg ONCE ONE Administration Ketamine HCl 100 mg 02/14/25 16:45 02/14/25 16:51 Ketamine Hcl/Ns 50 Mg/5 Ml Syringe IVPUSH 02/14/25 16:46 100 mg ONCE ONE Administration Olanzapine 10 mg 02/14/25 21:29 02/14/25 21:44 Olanzapine 10 Mg Vial IM 02/14/25 21:30 10 mg STAT STA Administration Procedures Procedural Sedation ASA Class: I Mallampati Class: I Time of Last PO Intake: 08:00 Preparation: director cardiac applied, pulse oximeter, capnometry used, supplemental O2 applied, suction/airway equipment at bedside and IV secured Ketamine: IV Ketamine dose (mg): 100 Patient Tolerated Procedure: well and no complications Complications: none Medical Decision Making Medical Decision Making MDM Narrative: 20:00 CTs without acute findings, discussed with crisis team to evaluate the patient 20:23 care team recommend psych consult in the morning Time: 20:24 Date: 02/14/25 Provider: Abdon Shepard, DO Patient in physician observation for psychiatric evaluation.? Differential Diagnosis Differential Diagnoses: The differential diagnosis associated with the presentation includes (UTI, pneumonia, electrolyte derangement, severe anemia,) Admission/Observation Consideration of admission/observation: Escalation of care including admission/observation considered Consult Healthcare Provider Management of the patient was discussed with: Behavioral Health Provider Lab Data MDM Lab Attestation statement: I reviewed the patient's lab results. 02/14/25 15:37 02/14/25 15:37 Labs: Lab Results 02/14/25 02/14/25 02/14/25 Range/Units 15:37 15:46 18:05 WBC 4.4 L (4.8-10.8) X10*3/uL RBC 4.09 L (4.60-5.80) X10*6/uL Hgb 11.7 L (14.0-18.0) g/dl Hct 35.4 L (42.0-52.0) % MCV 86.6 (80.0-98.0) fL MCH 28.6 (27.0-33.0) pg MCHC 33.1 (31.0-36.0) g/dl RDW 14.2 (11.0-16.0) % Plt Count 537 H D (160-400) X10*3/uL MPV 9.8 (9.4-12.4) fL Immature Gran % (Auto) 0.5 H (0.0-0.4) % Neut % (Auto) 33.1 L (45-73) % Lymph % (Auto) 54.0 H (20-40) % [place] % (Auto) 10.4 (2-11) % Eos % (Auto) 1.8 (0-4) % Baso % (Auto) 0.2 (0-2) % Lymph # (Auto) 2.4 (1.2-4.9) X10*3/uL [place] # (Auto) 0.5 (0.1-1.2) X10*3/uL Eos # (Auto) 0.1 (0.0-0.4) X10*3/uL Baso # (Auto) 0.0 (0.0-0.2) X10*3/uL Abs Immat Gran (auto) 0.02 (0.00-0.03) X10*3/uL Absolute Neuts (auto) 1.5 L (2.0-8.3) x10*3/uL Absolute Nucleated RBC 0.000 (0.0-0.012) X10*3/uL Nucleated RBC % (auto) 0.0 (0.0-0.2) /100WBC PT 13.2 H (10.9-12.4) SEC INR 1.2 H (0.9-1.1) Sodium 145 (135-145) mmol/L Potassium 4.1 (3.3-5.1) mmol/L Chloride 106 (96-108) mmol/L Carbon Dioxide 25 (22-29) mmol/L Anion Gap 18 (12-20) BUN 16 (9-16) mg/dL Creatinine 0.61 (0.5-1.4) mg/dL Estim Creat Clear Calc 122.9 Estimated GFR > 60 Random Glucose 92 (60-115) mg/dL Lactic Acid 4.1 H* 1.4 (0.5-2.0) mmol/L Calcium 9.5 (8.4-10.2) mg/dL Total Bilirubin 0.2 (0.0-1.0) mg/dL Direct Bilirubin < 0.2 (0.0-0.5) mg/dL AST 23 (5-37) U/L ALT 21 (0-40) U/L Alkaline Phosphatase 54 (39-117) U/L Troponin I High Sens 5.1 (<3.5-35.0) ng/L B-Natriuretic Peptide 25 (<100) pg/mL Total Protein 7.2 (6.5-8.0) g/dL Albumin 4.1 (3.5-5.0) g/dL Lipase 25 (8-78) U/L Urine Color Dark Yellow Urine Appearance Clear Urine pH 6.0 (5.0-9.0) Ur Specific [place] >= 1.030 H (1.005-1.025) Urine Protein 30 (1+) H (Neg-Trace) mg/dL Urine Glucose (UA) Negative (Negative) mg/dL Urine Ketones Trace (Negative) mg/dL Urine Blood Negative (Negative) Urine Nitrite Negative (Negative) Ur Leukocyte Esterase Small (1+) H (Negative) Urine RBC 0-2 (0-2) /HPF Urine WBC 0-5 (0-5) /HPF Ur Squamous Epith Cells 3-5 (0-2) /HPF Urine Bacteria None Seen (None Seen) Hyaline Casts 0-2 (0-2) /LPF Influenza Type A (PCR) NEGATIVE (Negative) Influenza Type B (PCR) NEGATIVE (Negative) RSV RNA Qual (PCR) NEGATIVE (Negative) SARS-CoV-2 RNA (RT-PCR) NEGATIVE (Negative) Radiology Impression Discussion of test interpretation with radiology: I have reviewed the radiologist's reading. (IMPRESSION: 1. No acute intrathoracic findings. Interval near-complete resolution of previously seen areas of consolidation and ground-glass with minimal consolidation along the posterior left lower lobe likely representing atelectasis.) Critical Care Time Critical Care Time Critical Care Time: Yes Total Critical Care Time: 60 Attestation: The patient was critically ill with a high probability of imminent or life-threatening deterioration. I spent greater than 30 minutes of discontinuous time evaluating the patient, delivering critical care at the bedside, discussing evaluating data with consultants. Critical care time does not include time spent performing separately billable procedures or teaching. Time spent performing critical care was 60 minutes. Discharge Plan Discharge Clinical Impression: Acute alteration in mental status, Agitation, Cystitis Patient Disposition: Admitted As Inpatient Interventions: [place]-Suicide Risk Severity Scale Last Done: 02/14/25 16:03 Print Language: Maltese
[2025-02-14] MEDS: Ketamine HCl/NS 50 MG/5 ML SYRINGE IVPUSH (15:22)
[2025-02-14 15:44] LABS: MANUAL DIFF FLAG NO
[2025-02-14 15:52] LABS: Hematocrit 35.4 % (42.0-52.0); Hemoglobin 11.7 g/dl (14.0-18.0); INTERNATIONAL NORM RATIO 1.2 (0.9-1.1); Imm Gran Abs Auto 0.02 X10*3/uL (0.00-0.03); Imm Gran Pct Auto 0.5 % (0.0-0.4); Lymphocytes Absolute Auto 2.4 X10*3/uL (1.2-4.9); Mean Corpuscular HGB Conc 33.1 g/dl (31.0-36.0); Mean Corpuscular Hemoglobin 28.6 pg (27.0-33.0); Mean Corpuscular Volume 86.6 fL (80.0-98.0); NRBC Abs Auto 0.000 X10*3/uL (0.0-0.012); NRBC Pct Auto 0.0 /100WBC (0.0-0.2); Platelet Count 537 X10*3/uL (160-400); Prothrombin Time 13.2 SEC (10.9-12.4); Red Blood Count 4.09 X10*6/uL (4.60-5.80); White Blood Count 4.4 X10*3/uL (4.8-10.8)
[2025-02-14 15:56] LABS: Appearance Urine Clear; Glucose Urine UA Negative (Negative); PH 6.0 (5.0-9.0); Specific Gravity - Urine >= 1.030 (1.005-1.025); UMIC TRIGGER UACC YES
[2025-02-14 16:02] LABS: Alanine Aminotransferase 21 U/L (0-40); Albumin Level 4.1 g/dL (3.5-5.0); Alkaline Phosphatase 54 U/L (39-117); Anion Gap 18 (12-20); Aspartate Amino Transferase 23 U/L (5-37); Blood Urea Nitrogen 16 mg/dL (9-16); Calcium 9.5 mg/dL (8.4-10.2); Carbon Dioxide 25 mmol/L (22-29); Chloride 106 mmol/L (96-108); Creatinine Clr Calc Pharmacy 122.9; Estimated Glomerular Filt Rate > 60; Lipase 25 U/L (8-78); Potassium 4.1 mmol/L (3.3-5.1); Sodium 145 mmol/L (135-145); Total Protein 7.2 g/dL (6.5-8.0)
--- NOTE | 2025-02-14 16:04 | PC.NURSE ---
Pt [facility] from senior care for reports of decreased PO intake and agression. Pt reportedly uncooperative with care and has not had any medication since 02/06 per EMS reports. Pt legally blind and minimally verbal. Pt lashing out and attempting to spit at staff when approached for care. MD at bedside, IM ketamine admin per MD order. , RN and quality systems technician at bedside to complete blood draws and straight cath needed for labs. #20 placed in right hand, IVF and IV abx per AUG. Pt placed on case monitor. senior living staff present at bedside.
[2025-02-14 16:07] LABS: UACC Culture Trigger YES
[2025-02-14 16:09] LABS: B Type Natriuretic Peptide 25 pg/mL (<100)
[2025-02-14 16:10] LABS: Troponin-I High Sensitivity 5.1 ng/L (<3.5-35.0)
[2025-02-14 16:25] LABS: Resp Syncy Virus RNA Qual PCR NEGATIVE (Negative); SARS COV2 PCR INHOUSE NEGATIVE (Negative)
[2025-02-14] MEDS: Ketamine HCl/NS 50 MG/5 ML SYRINGE 100 MG IVPUSH (16:51)
[2025-02-14 17:00] VITALS: BP 112/78; BP 140/77; PULSE 75; PULSE 77; RESP 17; TEMP 36.6; O2SAT 93
[2025-02-14 17:45] LABS: Reflex Lactate? Lactic Acid Added
--- NOTE | 2025-02-14 18:07 | MHC.CARE ---
T/w talked to pts. Guardian, Clementine Antunez to collect some collateral information. Clementine reports that pt. was hospitalized medically last week and was diagnosed with Aspiration pneumonia and norovirus. Clementine reports that pt. was sick with an infection and was not taking his medications. Clementine reports that pt. can be stubborn with his meds, however this is out of the norm. Clementine reports that pt. was eating better since being hospitalized, however is starting to decline food again as of the last couple of days.
--- NOTE | 2025-02-14 19:10 | PC.NURSE ---
this RN assumed care of this pt @1900, at this time the pt was witnessed attempting to get out of stretcher, group home paraprofessional stated He has never tried to get up before. This RN along w/ off going RN able to redirect the pt back into the stretcher, pt appears to be in no apparent distress
[2025-02-14 20:00] VITALS: PULSE 74; RESP 17
[2025-02-14] MEDS: OLANZapine 10 MG VIAL IM (21:44)
[2025-02-14 22:00] VITALS: PULSE 76; RESP 17
--- NOTE | 2025-02-14 23:01 | MHC.EDTECH ---
@23:00 Per RN hold off on EKG until the patient is a little more calm due to aggression.
[2025-02-15] VITALS (7 sets, daily range): BP systolic 99–137; BP diastolic 32–61; PULSE 57–89; RESP 12–18; TEMP 36.4; O2SAT 95–100; BMI 28.5
--- NOTE | 2025-02-15 00:09 | PC.NURSE ---
at this time this RN turned off room lights, closed curtain shelter to decrease stimulation and provided the pt w/ a warm blanket for comfort , pt appears less agitated
--- NOTE | 2025-02-15 05:05 | PC.NURSE ---
drag out worker told this RN that he believes the pt is wet, pt changed and given new bed sheets, d/t incontinence pt placed on male purewick, tolerated well
--- NOTE | 2025-02-15 08:33 | PC.NURSE ---
Pt mostly nonverbal, appears to be resting comfortably with eyes closed. RR even and unlabored. assisted caregiver at bedside with patient. No visible s/s of distress.
--- NOTE | 2025-02-15 09:01 | PC.NURSE ---
called pharmacy for a med/rec
--- NOTE | 2025-02-15 12:38 | PHA.MEDREC ---
Pharmacy Consult ? Medication Reconciliation Pharmacy has completed the medication reconciliation. Utilized list from [facility], .
--- NOTE | 2025-02-15 12:42 | PM.IMHP ---
History of Present Illness Date of Service: 02/15/25 Chief Complaint: Increased confusion 59-year-old male with pertinent history of epilepsy, manjinder-gastaut syndrome, hypothyroidism, CVA, dysphagia, aspiration pneumonia, mood disorder, Parkinson's disease, HLD, verbal but not coherant. Lives at alf. Has had decreased p.o. intake and decreased of his baseline mental status, reportedly unable to give the patient his 14:00 scheduled medication and did not want to eat his lunch. Non historian at baseline. In the ER, chest CT, abdominal CT all negative for acute abnormality. Urine culture shows Gram-negative man, blood culture 1/2 shows GPC. Lactic acid initially 4.1, down to 1.4. Patient received Rocephin and Zyprexa in the ER. He will be admitted for further management and treatment of bacteremia. Review of Systems Review of Systems: Yes Unobtainable due to mental status PMFSH Medical History Fever Epileptic seizure Depression Generalized anxiety disorder Ganglion cyst Aspiration pneumonia Parkinson disease Dysphagia Anxiety Constipation TIA (transient ischemic attack) Hyperlipidemia Glaucoma Hyperopia of left eye Proptosis Aphakia, both eyes Osteopenia Hypothyroidism Manjinder-Gastaut syndrome, intractable, with status epilepticus Social History Household Members: Other Household Members Other:: alf members Housing: Other Housing Other:: alf Do you presently have visiting nurse or other home services: No Unable to assess alcohol history related to: Unknown Comment: [facility] home staff at bedside. Patient Tobacco Use Status: Never used Tobacco e-Cigarette/Vaping Use: Never Used Second Hand Smoke Exposure: No Advance Directives: Yes Advance Directives on File: Yes Advance Directives Date on File: 04/01/22 service: No Meds Allergies Allergy/AdvReac Type Severity Reaction Status Date / Time erythromycin base Allergy Unknown HIVES Verified 02/14/25 14:19 (ERYTHROMYCIN BASE) gentamicin (GENTAMICIN) Allergy Unknown UNKNOWN Verified 02/14/25 14:19 Macrolide Antibiotics Allergy Unknown UNKNOWN Verified 02/14/25 14:19 (MACROLIDE ANTIBIOTICS) KETOLIDES Allergy Unknown UNKNOWN Uncoded 02/14/25 14:19 Active Medications: Current Medications Acetaminophen (Acetaminophen 325 Mg Tablet) 650 mg PO Q6H PRN PRN Reason: Pain, Mild 1-3,fever,headache Calcium Carbonate (Calcium Carbonate 750 Mg Tab.Chew) 750 mg PO Q4H PRN PRN Reason: Heartburn Heparin Sodium (Porcine) (Heparin Sodium,Porcine 5,000 Unit/Ml Vial) 5,000 unit SUBCUT Q12H [facility] Magnesium Hydroxide (Milk Of Magnesia 30 Ml Oral.Susp) 30 ml PO DAILY PRN PRN Reason: Constipation Melatonin (Melatonin 3 Mg Tablet) 6 mg PO BEDTIME PRN PRN Reason: Insomnia Ondansetron HCl (Ondansetron Hcl 4 Mg/2 Ml Vial) 4 mg IVPUSH Q8H PRN PRN Reason: Nausea and Vomiting Sodium Chloride (0.9 % Sodium Chloride Flush 3 Ml Syringe) 3 ml IVFLUSH QSHIFT [facility] Home Medications ?Medication ?Instructions ?Recorded ?Confirmed ?Last Taken ?Type acetaminophen 325 mg tablet 650 mg PO Q6H PRN Fever Or Pain 04/01/23 02/15/25 12/16/23 History cholecalciferol (vitamin D3) 1,250 1,250 mcg PO WE@0900 04/01/23 02/15/25 01/20/25 History mcg (50,000 unit) capsule clonazepam 0.5 mg tablet 0.25 mg PO BID@0800,1200 04/01/23 02/15/25 01/26/25 History clonazepam 0.5 mg tablet 0.5 mg PO BEDTIME 04/01/23 02/15/25 01/26/25 History divalproex 125 mg capsule,delayed 500 mg PO TID 04/01/23 02/15/25 01/26/25 History release sprinkle (Depakote Sprinkles) felbamate 400 mg tablet 800 mg PO TID 04/01/23 02/15/25 01/26/25 History levetiracetam 500 mg tablet 1,000 mg PO TID 04/01/23 02/15/25 01/26/25 History levothyroxine 88 mcg tablet 88 mcg PO DAILY@0600 04/01/23 02/15/25 01/26/25 History sertraline 50 mg tablet 50 mg PO BEDTIME 04/01/23 02/15/25 01/26/25 History simvastatin 40 mg tablet 40 mg PO BEDTIME 04/01/23 02/15/25 01/26/25 History zinc oxide 13 % topical cream 1 appl topical TID PRN Rash 04/01/23 02/15/25 Unknown History (Desitin Daily Defense) bisacodyl 10 mg rectal suppository 10 mg ND DAILY PRN Constipation 06/08/23 02/15/25 Unknown History (OneLAX Bisacodyl) guaifenesin 100 mg/5 mL oral liquid 200 mg PO Q6H PRN Cough 06/08/23 02/15/25 Unknown History magnesium hydroxide 400 mg/5 mL 30 ml PO Q OTHER DAY Constipation 06/08/23 02/15/25 12/16/23 History oral suspension (Milk of Magnesia) polyethylene glycol 3350 17 17 g PO DAILY 06/08/23 02/15/25 01/26/25 History gram/dose oral powder sodium phosphates 19 gram-7 118 ml ND DAILY PRN Constipation 06/08/23 02/15/25 Unknown History gram/118 mL enema (Enema Disposable) aspirin 81 mg chewable tablet 81 mg PO DAILY@0800 12/17/23 02/15/25 01/26/25 History bacitracin 500 unit/gram topical 1 appl topical BID PRN wounds 12/17/23 02/15/25 Unknown History ointment docusate sodium 50 mg/5 mL oral 100 mg PO DAILY@0800 12/17/23 02/15/25 01/26/25 History liquid midazolam 5 mg/spray (0.1 mL) 5 mg intranasal Q10M PRN Seizures 12/17/23 02/15/25 01/26/25 History nasal spray (Nayzilam) therapeutic multivitamin 1 tab PO DAILY 01/27/25 02/15/25 01/26/25 History white petrolatum-mineral oil 57.3 1 appl ophthalmic (eye) BEDTIME 01/27/25 02/15/25 01/26/25 History %-42.5 % eye ointment (Refresh P.M.) Physical Exam Vital Signs and Narrative: Vital Signs: Last Vital Signs Temp 97.9 F 02/14/25 17:00 Pulse 57 02/15/25 08:30 Resp 12 02/15/25 08:30 BP 116/43 L 02/15/25 08:30 Pulse Ox 96 02/15/25 08:30 O2 Del Method Room Air 02/15/25 08:30 BMI result Body Mass Index 31.7 Appearing in no acute distress head is normocephalic atraumatic eyes pupils are PERRLA sclera is anicteric mouth throat mucous membranes are intact and moist neck is supple no lymphadenopathy, no JVD noted lung sounds are clear to auscultation heart regular rate rhythm, clear S1, S2 positive bowel sounds, abdomen is soft, nontender neuro patient is alert , not coherent at baseline Results Labs 02/14/25 15:37 02/14/25 15:37 Labs: Laboratory Results - last 24 hr 02/14/25 02/14/25 02/14/25 15:37 15:46 18:05 MCV 86.6 MCH 28.6 MCHC 33.1 RDW 14.2 Plt Count 537 H D MPV 9.8 Immature Gran % (Auto) 0.5 H Neut % (Auto) 33.1 L Lymph % (Auto) 54.0 H [place] % (Auto) 10.4 Eos % (Auto) 1.8 Baso % (Auto) 0.2 Lymph # (Auto) 2.4 [place] # (Auto) 0.5 Eos # (Auto) 0.1 Baso # (Auto) 0.0 Abs Immat Gran (auto) 0.02 Absolute Neuts (auto) 1.5 L Absolute Nucleated RBC 0.000 Nucleated RBC % (auto) 0.0 PT 13.2 H INR 1.2 H Anion Gap 18 Estim Creat Clear Calc 122.9 Estimated GFR > 60 Random Glucose 92 Lactic Acid 4.1 H* 1.4 Calcium 9.5 Total Bilirubin 0.2 Direct Bilirubin < 0.2 AST 23 ALT 21 Alkaline Phosphatase 54 B-Natriuretic Peptide 25 Total Protein 7.2 Albumin 4.1 Lipase 25 Urine Color Dark Yellow Urine Appearance Clear Urine pH 6.0 Ur Specific [place] >= 1.030 H Urine Protein 30 (1+) H Urine Glucose (UA) Negative Urine Ketones Trace Urine Blood Negative Urine Nitrite Negative Ur Leukocyte Esterase Small (1+) H Urine RBC 0-2 Urine WBC 0-5 Ur Squamous Epith Cells 3-5 Urine Bacteria None Seen Hyaline Casts 0-2 Influenza Type A (PCR) NEGATIVE Influenza Type B (PCR) NEGATIVE RSV RNA Qual (PCR) NEGATIVE SARS-CoV-2 RNA (RT-PCR) NEGATIVE Assessment and Plan (1) Acute metabolic encephalopathy: Status: Acute (2) Agitation: Status: Acute Plan 59-year-old man with [place]-gastaut syndrome admitted with acute encephalopathy and poor appetite Acute encephalopathy Likely related to UTI Treat UTI 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 Was contacted and updated on patient's status. Stated that the patient is a full code. Quality Stroke Does the patient have a stroke diagnosis?: No VTE Prior VTE?: No VTE Risk Level:: Medical - moderate - high VTE Device Contraindication: Treatment Not Indicated VTE Drug Contraindication: N/A - Med Ordered
--- NOTE | 2025-02-15 13:47 | PC.NURSE ---
pt fed his lunch and pt consumed 100% of his meal
[2025-02-15] MEDS: 0.9 % Sodium Chloride Flush 3 ML SYRINGE IVFLUSH ×2 (16:41→20:57)
[2025-02-15] MEDS: Milk of Magnesia 30 ML ORAL.SUSP PO (18:39)
[2025-02-15] MEDS: diazePAM 10 MG/2 ML CARTRIDGE 5 MG IVPUSH (19:30)
--- NOTE | 2025-02-15 19:41 | PM.EVENT ---
Event Note Date of Service: 02/15/25 Event Note: Rapid response was called as patient had an episode of seizure. It was witnessed by staff from retirement and lasted only few seconds. Seizure broke without any intervention. Patient without any jerking movement of extremities at the time of my evaluation. Resume home antiseizure medications and closely monitor. Time Spent With Patient Time: Total time managing care of this patient today ____ minutes.
[2025-02-15] MEDS: Divalproex Sodium Sprinkles 125 MG CAP.DR.SPR 500 MG PO (19:43)
--- NOTE | 2025-02-15 20:02 | PC.NURSE ---
back shoe worker called staff into room for seizure activity. Pt having frequent, seconds long trembling with stiffening of limbs and eyes rolling back. Hospitalist called to beside. 5mg IV diazepam ordered and given. HS, po seizure meds given early per provider.
[2025-02-15] MEDS: FELBAMATE 400 MG 800 EACH PO (20:48)
[2025-02-16 04:00] VITALS: BP 101/59; PULSE 69; RESP 18; TEMP 37.1; O2SAT 100
[2025-02-16 06:11] LABS: MANUAL DIFF FLAG NO
[2025-02-16 06:27] LABS: Hematocrit 35.4 % (42.0-52.0); Hemoglobin 11.5 g/dl (14.0-18.0); Imm Gran Abs Auto 0.01 X10*3/uL (0.00-0.03); Imm Gran Pct Auto 0.2 % (0.0-0.4); Lymphocytes Absolute Auto 1.8 X10*3/uL (1.2-4.9); Mean Corpuscular HGB Conc 32.5 g/dl (31.0-36.0); Mean Corpuscular Hemoglobin 28.6 pg (27.0-33.0); Mean Corpuscular Volume 88.1 fL (80.0-98.0); NRBC Abs Auto 0.000 X10*3/uL (0.0-0.012); NRBC Pct Auto 0.0 /100WBC (0.0-0.2); Platelet Count 457 X10*3/uL (160-400); Red Blood Count 4.02 X10*6/uL (4.60-5.80); White Blood Count 4.3 X10*3/uL (4.8-10.8)
[2025-02-16 06:36] LABS: Anion Gap 13 (12-20); Blood Urea Nitrogen 12 mg/dL (9-16); Calcium 9.2 mg/dL (8.4-10.2); Carbon Dioxide 28 mmol/L (22-29); Chloride 109 mmol/L (96-108); Creatinine Clr Calc Pharmacy 137.0; Estimated Glomerular Filt Rate > 60; Potassium 4.3 mmol/L (3.3-5.1); Sodium 146 mmol/L (135-145)
[2025-02-16 08:00] VITALS: BP 135/62; PULSE 90; RESP 16; TEMP 36.3; O2SAT 94
[2025-02-16] MEDS: FELBAMATE 400 MG 800 EACH PO ×3 (08:48→20:09)
[2025-02-16] MEDS: Divalproex Sodium Sprinkles 125 MG CAP.DR.SPR 500 MG PO ×3 (08:49→20:07)
[2025-02-16] MEDS: 0.9 % Sodium Chloride Flush 3 ML SYRINGE IVFLUSH ×3 (08:49→20:10)
--- NOTE | 2025-02-16 09:46 | HO.PM.IMPN ---
Subjective Subjective Date of Service: 02/16/25 Interval History: Follow up UTI, bacteremia Review of Systems Review of Systems: Yes all other systems are reviewed and are negative Physical Exam Exam: Exam: Appearing in no acute distress lung sounds are clear to auscultation heart regular rate rhythm, clear S1, S2 positive bowel sounds, abdomen is soft, nontender neuro patient is alert, incoherant Vital Signs: Vital Signs: Last Vital Signs Temp 97.3 F 02/16/25 08:00 Pulse 90 02/16/25 08:00 Resp 16 02/16/25 08:00 BP 135/62 02/16/25 08:00 Pulse Ox 94 02/16/25 08:00 O2 Del Method Room Air 02/16/25 08:00 BMI result Body Mass Index 28.5 Objective Data Active Medications Acetaminophen (Acetaminophen 325 Mg Tablet) 650 mg PO Q6H PRN PRN Reason: Pain, Mild 1-3,fever,headache Aspirin (Aspirin 81 Mg Tab.Chew) 81 mg PO DAILY@0800 [facility] Last Admin: 02/16/25 08:49 Dose: 81 mg Documented By: JOE Atorvastatin Calcium (Atorvastatin Calcium 20 Mg Tablet) 20 mg PO BEDTIME [facility] Last Admin: 02/15/25 20:48 Dose: 20 mg Documented By: MAYKEL Bisacodyl (Bisacodyl 10 Mg Supp.Rect) 10 mg IN DAILY PRN PRN Reason: Constipation Calcium Carbonate (Calcium Carbonate 750 Mg Tab.Chew) 750 mg PO Q4H PRN PRN Reason: Heartburn Ceftriaxone Sodium (Ceftriaxone Sodium 1 Gm Vial) 1 gm IVPUSH Q24H [facility] Last Admin: 02/15/25 12:57 Dose: Not Given Documented By: MAILE Non-Admin Reason: Duplicate Order Clonazepam (Clonazepam 0.5 Mg Tablet) 0.25 mg PO BID@0800,1200 [facility] Last Admin: 02/16/25 08:49 Dose: 0.25 mg Documented By: JOE Clonazepam (Clonazepam 0.5 Mg Tablet) 0.5 mg PO BEDTIME [facility] Last Admin: 02/15/25 19:43 Dose: 0.5 mg Documented By: JOE Divalproex Sodium (Divalproex Sodium Sprinkles 125 Mg ) 500 mg PO TID [facility] Last Admin: 02/16/25 08:49 Dose: 500 mg Documented By: JOE Docusate Sodium (Docusate Sodium 100 Mg/10 Ml Liquid) 100 mg PO DAILY@0800 [facility] Last Admin: 02/16/25 08:48 Dose: 100 mg Documented By: JOE Guaifenesin (Guaifenesin 200 Mg/10 Ml 10 Ml Liquid) 10 ml PO Q6H PRN PRN Reason: Cough Heparin Sodium (Porcine) (Heparin Sodium,Porcine 5,000 Unit/Ml Vial) 5,000 unit SUBCUT Q12H [facility] Last Admin: 02/16/25 00:16 Dose: 5,000 unit Documented By: MAYKEL Lamotrigine (Lamotrigine 25 Mg Tablet) 50 mg PO BID [facility] Last Admin: 02/16/25 08:48 Dose: 50 mg Documented By: JOE Levetiracetam (Levetiracetam 1,000 Mg Tablet) 1,000 mg PO TID [facility] Last Admin: 02/16/25 08:48 Dose: 1,000 mg Documented By: JOE Levothyroxine Sodium (Levothyroxine Sodium 88 Mcg Tablet) 88 mcg PO DAILY@0600 [facility] Last Admin: 02/16/25 05:30 Dose: 88 mcg Documented By: MAYKEL Magnesium Hydroxide (Milk Of Magnesia 30 Ml Oral.Susp) 30 ml PO DAILY PRN PRN Reason: Constipation Magnesium Hydroxide (Milk Of Magnesia 30 Ml Oral.Susp) 30 ml PO Q2D [facility] Last Admin: 02/15/25 18:39 Dose: 30 ml Documented By: JOE Melatonin (Melatonin 3 Mg Tablet) 6 mg PO BEDTIME PRN PRN Reason: Insomnia Multivitamins/Vitamin C (Multivitamin Tablet) 1 tab PO DAILY [facility] Last Admin: 02/16/25 08:49 Dose: 1 tab Documented By: JOE Non-Formulary Medication (Cholecalciferol (Vitamin D3)) 1,250 mcg PO WE@0900 [facility] Patient Own Med ( Felbamate 400 Mg Tablet) 800 mg PO TID [facility] Last Admin: 02/16/25 08:48 Dose: 800 mg Documented By: JOE Ondansetron HCl (Ondansetron Hcl 4 Mg/2 Ml Vial) 4 mg IVPUSH Q8H PRN PRN Reason: Nausea and Vomiting Polyethylene Glycol (Polyethylene Glycol 3350 17 Gm Powd.Pack) 17 gm PO DAILY [facility] Last Admin: 02/16/25 08:56 Dose: Not Given Documented By: JOE Non-Admin Reason: loose stool Sertraline HCl (Sertraline Hcl 50 Mg Tablet) 50 mg PO BEDTIME [facility] Last Admin: 02/15/25 20:48 Dose: 50 mg Documented By: MAYKEL Sodium Biphosphate/Sodium Phosphate (Sodium Phosphate,[place]-Dibasic 133 Ml Enema) 118 ml IN DAILY PRN PRN Reason: Constipation Sodium Chloride (0.9 % Sodium Chloride Flush 3 Ml Syringe) 3 ml IVFLUSH QSHIFT [facility] Last Admin: 02/16/25 08:49 Dose: 3 ml Documented By: JOE Labs 02/16/25 05:33 02/16/25 05:33 Labs: Laboratory Results - last 24 hr 02/16/25 05:33 MCV 88.1 MCH 28.6 MCHC 32.5 RDW 14.2 Plt Count 457 H MPV 10.5 Immature Gran % (Auto) 0.2 Neut % (Auto) 38.1 L Lymph % (Auto) 42.5 H [place] % (Auto) 15.8 H Eos % (Auto) 3.2 Baso % (Auto) 0.2 Lymph # (Auto) 1.8 [place] # (Auto) 0.7 Eos # (Auto) 0.1 Baso # (Auto) 0.0 Abs Immat Gran (auto) 0.01 Absolute Neuts (auto) 1.6 L Absolute Nucleated RBC 0.000 Nucleated RBC % (auto) 0.0 Anion Gap 13 Estim Creat Clear Calc 137.0 Estimated GFR > 60 Random Glucose 84 Calcium 9.2 Microbiology Microbiology Results: Microbiology 02/14/25 Unknown Urine Culture - Final Urine Catheterized - Straight Catheter Escherichia coli 02/14/25 15:37 Blood Culture - Preliminary Blood - Venous No growth after 24 hours. 02/14/25 15:37 Blood Culture - Preliminary Blood - Venous Prelim: GPC Gram Stain only Assessment and Plan (1) Agitation: Status: Acute Plan 59-year-old man with [place]-gastaut syndrome admitted with acute encephalopathy and poor appetite Acute encephalopathy. 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 Was contacted and updated on patient's status. Stated that the patient is a full code. Quality Stroke Does the patient have a stroke diagnosis?: No VTE Prior VTE?: No VTE Risk Level:: Medical - moderate - high VTE Device Contraindication: Treatment Not Indicated VTE Drug Contraindication: N/A - Med Ordered
--- NOTE | 2025-02-16 12:04 | P.CDIM_ITS ---
PROVIDER RESPONSE TEXT: To clarify, the appropriate diagnosis supported by the clinical indicators: Metabolic QUERY TEXT: PHYSICIAN'S DOCUMENTATION REQUEST Date of Query: 02/16/2025 08:22 AM EDT Patient Name: Rico Chin Admit Date: 02/15/2025 Dear Evette Low [employer], A review of the medical record indicates additional documentation may be needed. Please review below and update the documentation accordingly. Clinical Indicators: H&P dated 02/15/25 - Acute Encephalopathy due to UTI. Treat UTI IV Rocephin Altered mental status, agitated, has decreased p.o. intake and decrease of his baseline mental status. Based on the above, please further specify, in the Progress Notes, the known or suspected type of the documented encephalopathy: Metabolic Toxic Toxic metabolic Hypertensive Other (explain) Clinically unable to determine (explain) Thank you, Nadine Arceo, CCS, CDIS Use of terms such as suspected, likely, concern for, or probable (associated with a specific diagnosis that is being evaluated, monitored, or treated as if it exists) are acceptable and can be coded in the inpatient setting, when documented at the time of discharge. Please use your independent medical judgment in providing your response. THIS QUERY IS PART OF THE PERMANENT MEDICAL RECORD
--- NOTE | 2025-02-16 12:39 | MHC.CM.PN ---
pt from [facility] detention he will need amb transport back to [facility] he has 21/01 care
[2025-02-16 16:00] VITALS: BP 121/56; PULSE 77; RESP 18; TEMP 36.3; O2SAT 96
--- NOTE | 2025-02-16 19:39 | PC.NURSE ---
Pt became agitated, kicking, flailing trying to get oob but unable to stand. Yelling profanities. Provider called to bedside. 1x dose haldol 2.5mg IM ordered and given. Pt still restless, but behaviors improved.
[2025-02-16 19:48] VITALS: BP 110/52; PULSE 76; RESP 18; TEMP 36.3; O2SAT 96
[2025-02-17 03:37] VITALS: BP 110/56; PULSE 77; RESP 18; TEMP 36.6; O2SAT 96
--- NOTE | 2025-02-17 07:22 | PM.DS ---
DS: Providers Provider Date of Service: 02/17/25 Date of admission: 02/15/25 12:36 Date of discharge: 02/17/25 Primary care physician: Darrick Vernon NP Consults: 02/14/25 16:14 ED CARE Team Crisis Consult Stat Comment: Reason for consultation: Agitation, refused to take his medication. DS: Diagnosis Discharge Diagnosis (1) Agitation: Status: Acute DS: Summary Hospital Course Hospital Course: 59-year-old male with pertinent history of epilepsy, [place]-gastaut syndrome, hypothyroidism, CVA, dysphagia, aspiration pneumonia, mood disorder, Parkinson's disease, HLD, verbal but not coherant. Lives at assisted. Has had decreased p.o. intake and decreased of his baseline mental status, reportedly unable to give the patient his 14:00 scheduled medication and did not want to eat his lunch. Non historian at baseline. In the ER, chest CT, abdominal CT all negative for acute abnormality. Urine culture shows Gram-negative man, blood culture 1/2 shows GPC. Lactic acid initially 4.1, down to 1.4. Patient received Rocephin and Zyprexa in the ER. He will be admitted for further management and treatment of bacteremia. 59-year-old man resident of a assisted for acute encephalopathy secondary to E coli UTI. Treated with IV Rocephin. At this point patient is at his baseline as per assisted workers. Blood cultures initially grew out g positive cocci but came back as coag-negative staph so due to contaminant no need to treat for bacteremia. Plan will be to discharge patient back to assisted with a few more days of oral antibiotics to complete a total of 5 days. Mental health. Continue home medications History of seizure disorder. No seizure during hospitalization. Continue Keppra Hypothyroidism. Continue levothyroxine Time Attestation Discharge Coordination Time (in mins): 42 Quality: Safe Use of Opioids Does Pt have an Active Cancer Diagnosis on the Problem List?: No Quality: Stroke Does the patient have a stroke diagnosis?: No Physical Exam Exam: Exam: Appearing in no acute distress head is normocephalic atraumatic eyes pupils are PERRLA sclera is anicteric mouth throat mucous membranes are intact and moist neck is supple no lymphadenopathy, no JVD noted lung sounds are clear to auscultation heart regular rate rhythm, clear S1, S2 positive bowel sounds, abdomen is soft, nontender neuro patient is alert, and coherent speech Bed-bound patient Vital Signs: Vital Signs: Last Vital Signs Temp 97.8 F 02/17/25 03:37 Pulse 77 02/17/25 03:37 Resp 18 02/17/25 03:37 BP 110/56 L 02/17/25 03:37 Pulse Ox 96 02/17/25 03:37 O2 Del Method Room Air 02/17/25 03:37 BMI result Body Mass Index 28.5 DS: Data Data Completed and Pending Labs on day of discharge: Preliminary micro results at discharge 02/14/25 15:37 Blood Culture - Preliminary Blood - Venous No growth after 48 hours. Discharge Plan Discharge Anticipated Discharge Date/Time: 02/17/25 07:19 Patient Disposition: Xfer [facility] Discharge Diagnosis: Metabolic encephalopathy UTI Referrals: Darrick Vernon NP [Primary Care Provider, Internal Medicine] - 1 Week Discharge Medications: New cefuroxime axetil 500 mg tablet 500 mg PO BID Qty: 8 0RF Continued levetiracetam 500 mg tablet 1,000 mg PO TID clonazepam 0.5 mg Tablet 0.5 mg PO BEDTIME Rx Instructions: administer 30 minutes before bedtime clonazepam 0.5 mg Tablet 0.25 mg PO BID@0800,1200 felbamate 400 mg tablet 800 mg PO TID simvastatin 40 mg tablet 40 mg PO BEDTIME levothyroxine 88 mcg tablet 88 mcg PO DAILY@0600 sertraline 50 mg tablet 50 mg PO BEDTIME divalproex [Depakote Sprinkles] 125 mg capsule, delayed rel sprinkle 500 mg PO TID cholecalciferol (vitamin D3) 1,250 mcg (50,000 unit) capsule 1,250 mcg PO WE@0900 Desitin Daily Defense 13 % cream 1 appl topical TID PRN (Reason: Rash) acetaminophen 325 mg Tablet 650 mg PO Q6H PRN (Reason: Fever Or Pain) Rx Instructions: not to exceed 3000mg in 24 hours guaifenesin 100 mg/5 mL Liquid 200 mg PO Q6H PRN (Reason: Cough) magnesium hydroxide [Milk of Magnesia] 400 mg/5 mL suspension 30 ml PO Q OTHER DAY bisacodyl [OneLAX Bisacodyl] 10 mg suppository 10 mg [place] DAILY PRN (Reason: Constipation) Rx Instructions: If no BM in 3 days Enema Disposable 19-7 gram/118 mL enema 118 ml [place] DAILY PRN (Reason: Constipation) Rx Instructions: on day 4 of no BM polyethylene glycol 3350 17 gram/dose powder 17 g PO DAILY Rx Instructions: hold for loose stools docusate sodium 50 mg/5 mL Liquid 100 mg PO DAILY@0800 aspirin 81 mg Tablet,Chewable 81 mg PO DAILY@0800 Nayzilam 5 mg/spray (0.1 mL) [place],Non-Aerosol 5 mg INTRANASAL Q10M MDD 10mg/24h PRN (Reason: Seizures) bacitracin 500 unit/gram Ointment 1 appl TOPICAL BID PRN (Reason: wounds) lamotrigine 25 mg Tablet 50 mg PO BID Qty: 270 0RF therapeutic multivitamin Tablet 1 tab PO DAILY Refresh P.M. 57.3-42.5 % Ointment 1 appl ophthalmic (eye) BEDTIME Rx Instructions: 1/4 INCH APPLICATION Discharge Orders: Discharge Order (Routine); Ordered 02/17/25 Ordered By: Evette Low Diet: Advance to usual diet Activity on Discharge: As tolerated Stand Alone Forms: Patient Portal Discharge page Print Language: Citizen Of [place] Care Plan Goals: Complete course of antibiotics for urinary tract infection Health Concerns: Acute metabolic encephalopathy UTI Plan of Treatment: Follow up with primary care provider as needed Take all medications as prescribed Assessment: See discharge summary
[2025-02-17 08:00] VITALS: BP 119/65; PULSE 81; RESP 16; TEMP 36.2; O2SAT 92
[2025-02-17] MEDS: Divalproex Sodium Sprinkles 125 MG CAP.DR.SPR 500 MG PO (08:40)
[2025-02-17] MEDS: FELBAMATE 400 MG 800 EACH PO (08:40)
--- NOTE | 2025-02-17 09:11 | MHC.CM.PN ---
[facility] guardian franck notified
[2025-02-17] MEDS: 0.9 % Sodium Chloride Flush 3 ML SYRINGE IVFLUSH (12:21)
[2025-02-17 12:40] VITALS: BP 104/62; PULSE 70; RESP 18; TEMP 36.2; O2SAT 93
--- NOTE | 2025-02-17 12:45 | PC.NURSE ---
Pt mostly nonverbal. alf staff at bedside entire shift. Po meds given crushed in pudding. Tolerated approximately 25% of breakfast- staff fed. Incontinent of urine-external cath in place until discharge then pt placed in a brief. reviewed dc instructions with staff member
== END 2025-02-17 12:49 | disposition skilled nursing facility (03) | DRG 463 ==
LOC: HO.ED 02-15 12:43 → HO.EDOVER 02-15 12:47 → HO.S3 02-15 15:48
PROVIDERS: Emergency Medicine; Admitting Provider Nurse Practitioner Acute Care; Emergency Provider Emergency Medicine; PCP Nurse Practitioner Family; Visit Provider Nurse Practitioner Acute Care
DX: N39.0 Urinary tract infection, site not specified (principal); G93.41 Metabolic encephalopathy; E03.9 Hypothyroidism, unspecified; B96.20 Unspecified Escherichia coli [E. coli] as the cause of diseases classified elsewhere; G40.812 Lennox-Gastaut syndrome, not intractable, without status epilepticus; Z20.822 Contact with and (suspected) exposure to COVID-19; Z79.82 Long term (current) use of aspirin; Z79.890 Hormone replacement therapy; Z79.899 Other long term (current) drug therapy
CPT/HCPCS: 36415; 71045; 71250; 74176; 80048; 80076; 81001; 83605; 83690; 83880; 84484; 85025; 85610; 87040; 87086; 87088; 87147; 87186; 87205; 87637; 93005; 99285; J0696; J1630; J1644; J2359; J2543; J3360; S9485

== ENCOUNTER → 2025-02-14 14:28 | Outpatient (BNV) | payer OTHER, SELFPAY | PROVIDERS: Admitting Provider Nurse Practitioner Acute Care; Emergency Provider Emergency Medicine; PCP Nurse Practitioner Family; Visit Provider Internal Medicine Cardiovascular Disease | DX: Z13.6 Encounter for screening for cardiovascular disorders (principal) | CPT/HCPCS: 93010 ==

== ENCOUNTER → 2025-02-14 14:29 | Outpatient (BNV) | payer OTHER, SELFPAY | PROVIDERS: Emergency Provider Emergency Medicine; PCP Nurse Practitioner Family; Visit Provider Radiology Diagnostic Radiology | DX: R10.9 Unspecified abdominal pain (principal); R45.1 Restlessness and agitation | CPT/HCPCS: 71045; 71250; 74176 ==

== ENCOUNTER → 2025-02-15 12:36 | Outpatient (BNV) | payer OTHER, SELFPAY | PROVIDERS: Admitting Provider Nurse Practitioner Acute Care; Emergency Provider Emergency Medicine; PCP Nurse Practitioner Family; Visit Provider Nurse Practitioner Acute Care | DX: R45.1 Restlessness and agitation (principal) | CPT/HCPCS: 99223; 99232; 99239; 99499 ==

== ENCOUNTER 2025-04-04 09:58 | Emergency (ER) | payer OTHER, SELFPAY ==
[2025-04-04 10:05] VITALS: BP 104/47; PULSE 71; O2SAT 95
[2025-04-04 10:50] VITALS: BP 106/63; PULSE 73; RESP 18; TEMP 36.2; O2SAT 93; BMI 28.7
--- NOTE | 2025-04-04 11:37 | ED_ITS ---
HPI - General Adult General Chief complaint: Skin/Abscess/Foreign Body Stated complaint: RED QUATER SIZE LUMP BACK OF LEG Time Seen by Provider: 04/04/25 10:46 Source: RN notes reviewed, old records reviewed and other Mode of arrival: wheelchair Limitations: altered mental status History of Present Illness ED Provider: JADE Boyd HPI narrative: 59-year-old male accompanied by operations research group manager, with medical history of epilepsy, nikita-gastaut syndrome, hypothyroidism, CVA, dysphagia, aspiration pneumonia, mood disorder, Parkinson's disease, HLD, nonverbal at baseline presents to ED from [facility] for concerns of a lump on the back of the R leg. plant operations worker states the lump has been present for years and around the size of a pea. The operations research group manager noticed this morning that the lump has grown to be about grape size. Denies active drainage, fevers, chills. Patient has been bothered by this lump as it rubs against the seat of wheelchair and he has been shifting around due to discomfort. MD complaint: grape size lump on back of R thigh Related Data Home Medications ?Medication ?Instructions ?Recorded ?Confirmed acetaminophen 325 mg tablet 650 mg PO Q6H PRN Fever Or Pain 04/01/23 02/15/25 cholecalciferol (vitamin D3) 1,250 1,250 mcg PO WE@090 0 04/01/23 02/15/25 mcg (50,000 unit) capsule clonazepam 0.5 mg tablet 0.25 mg PO BID@0800,1200 08/2302/15/25 clonazepam 0.5 mg tablet 0.5 mg PO BEDTIME 04/01/23 0 02/15/25 divalproex 125 mg capsule,delayed 500 mg PO TID 02/15/25 release sprinkle (Depakote Sprinkles) felbamate 400 mg tablet 800 mg PO TID 04/01/2302/15 levetiracetam 500 mg tablet 1,000 mg PO TID 04/01/23 0 02/15/25 levothyroxine 88 mcg tablet 88 mcg PO DAILY@0600 04/0102/15/25 sertraline 50 mg tablet 50 mg PO BEDTIME 04/01/23 simvastatin 40 mg tablet 40 mg PO BEDTIME 04/01/23 zinc oxide 13 % topical cream 1 appl topical TID PRN R daisy 04/01/23 02/15/25 (Desitin Daily Defense) bisacodyl 10 mg rectal suppository 10 mg PA DAILY PRN Constipation 06/08/23 02/15/25 (OneLAX Bisacodyl) guaifenesin 100 mg/5 mL oral liquid 200 mg PO Q6H PRN Cough 06/08/23 02/15/25 magnesium hydroxide 400 mg/5 mL 30 ml PO Q OTHER DAY C onstipation 06/08/23 02/15/25 oral suspension (Milk of Magnesia) polyethylene glycol 3350 17 17 g PO DAILY 06/08/23 gram/dose oral powder sodium phosphates 19 gram-7 118 ml PA DAILY PRN Consti pation 06/08/23 02/15/25 gram/118 mL enema (Enema Disposable) aspirin 81 mg chewable tablet 81 mg PO DAILY@0800 11/2902/15/25 bacitracin 500 unit/gram topical 1 appl topical BID PA N wounds 12/17/23 02/15/25 ointment docusate sodium 50 mg/5 mL oral 100 mg PO DAILY@0800 0 12/17/23 02/15/25 liquid midazolam 5 mg/spray (0.1 mL) 5 mg intranasal Q10M PRN Seizures 12/17/23 02/15/25 nasal spray (Nayzilam) therapeutic multivitamin 1 tab PO DAILY 01/27/2501/29 white petrolatum-mineral oil 57.3 1 appl ophthalmic (e ye) BEDTIME 01/27/25 02/15/25 %-42.5 % eye ointment (Refresh P.M.) Previous Rx's ?Medication ?Instructions ?Recorded lamotrigine 25 mg tablet 50 mg (2 x 25 mg) PO BID #27 0 tabs 12/23/23 cefuroxime axetil 500 mg tablet 500 mg PO BID #8 tabs 02/17/25 cephalexin 500 mg capsule 500 mg PO BID 7 days #14 cap s 04/04/25 doxycycline hyclate 100 mg capsule 100 mg PO BID 7 day s #14 caps 04/04/25 Allergies Allergy/AdvReac Type Severity Reaction Status Date / Time erythromycin base Allergy Unknown HIVES Verified 04/04/25 10:56 (ERYTHROMYCIN BASE) gentamicin (GENTAMICIN) Allergy Unknown UNKNOWN Verified 04/04/25 10:56 Macrolide Antibiotics Allergy Unknown UNKNOWN Verified 04/04/25 10:56 (MACROLIDE ANTIBIOTICS) KETOLIDES Allergy Unknown UNKNOWN Uncoded 04/04/25 10:56 Review of Systems 2 Review of Systems: CONST: Negative for fever, body aches and chills. HENT: Negative for neck pain/stiffness, headache, congestion, sore throat, swelling. EYES: Negative for discharge/pain or vision changes. RESP: Negative for cough/hemoptysis and shortness of breath. CV: Negative chest pain, difficulty breathing, palpitations. ABD: Negative pain, nausea, vomiting. : Negative increase frequency, dysuria, blood in urine or stool. MUSC: Negative for muscle aches, edema. SKIN: Negative rash, lesions/sores. POS grape size lump of posterior R thigh NEURO: Negative headache, dizziness, weakness. Yes all other systems are reviewed and are negative PMFSH Past Medical History Medical History Fever Epileptic seizure Depression Generalized anxiety disorder Ganglion cyst Aspiration pneumonia Parkinson disease Dysphagia Anxiety Constipation TIA (transient ischemic attack) Hyperlipidemia Glaucoma Hyperopia of left eye Proptosis Aphakia, both eyes Osteopenia Hypothyroidism [place]-Gastaut syndrome, intractable, with status epilepticus Social History Social History Household Members: Other Household Members Other:: [facility] Housing: Other Housing Other:: [facility] Do you presently have visiting nurse or other home services: No Comment: operations research group manager present Patient Tobacco Use Status: Never used Tobacco Smoked in Last 30 Days: No e-Cigarette/Vaping Use: Never Used Second Hand Smoke Exposure: No Use of substances other than those prescribed or required for medical reasons: No Advance Directives: Yes Advance Directives on File: Yes Advance Directives Date on File: 04/01/22 service: No Physical Exam ED Vital Signs: Vital Signs - 24 hr 04/04/25 10:50 Temperature 97.1 F Pulse Rate 73 Respiratory Rate 18 Blood Pressure 106/63 Pulse Oximetry 93 Oxygen Delivery Method Room Air BMI result Body Mass Index 28.7 GENERAL APPEARANCE: ?alert but not oriented, no acute distress. HEENT: ?NC, AT. MMM. EOMI, clear conjunctiva, oropharynx clear. NECK: ?Supple without lymphadenopathy.? No stiffness or restricted ROM. HEART:? Normal rate and regular rhythm, normal S1/S2, no m/r/g LUNGS:? CTAB, moving air well. No crackles or wheezes are heard. ABDOMEN: ?Soft, nontender, nondistended BACK: No CVAT, no obvious deformity. EXTREMITIES: ?Without cyanosis, clubbing or edema. Grape size mass on the back of posterior thigh, soft but not overtly fluctuant, no white head, no active draining, without erythema or warmth, TTP as patient is grunting with palpation NEUROLOGICAL: ?Grossly nonfocal. Alert, moving all 4 extremities. Skin: ?Warm and dry without any rash. Medical Decision Making Medical Decision Making MDM Narrative: 59-year-old male accompanied by operations research group manager, with medical history of epilepsy, nikita-gastaut syndrome, hypothyroidism, CVA, dysphagia, aspiration pneumonia, mood disorder, Parkinson's disease, HLD, nonverbal at baseline presents to ED from [facility] for concerns of a lump on the back of the R leg that has been present for a few years but has always been pea sized has now grown to grape size, has been bothering patient as it rubs against wheelchair VS on initial observation-BP 106/63, pulse rate of 73, respiratory rate of 18, afebrile with oral temp of 97.1?, O2 saturation 93% on room air. On physical exam there is a grape size mass on the back of posterior thigh, soft but not overtly fluctuant, no white head, no active draining, without erythema or warmth, TTP as patient is grunting with palpation to the area. The grape size mass on the posterior R thigh is somewhat soft and mobile without fluctuance, white head, or active drainage. There is no indication for I&D at this time (see photos in physical exam portion of this note). I am questioning if this is a lipoma vs start of abscess. Will discharge with keflex and doxy for prophylactic coverage and refer for surgery for further evaluation of the mass. I counseled operations research group manager to follow up with primary care provider and on strict return precautions. plant operations worker is in agreement of the plan. I spoke with the patients guardianship Clementine Gómez who is also in agreement with the plan. Differential Diagnosis Differential Diagnoses: The differential diagnosis associated with the presentation includes Abscess Cellulitis Lipoma Admission/Observation Consideration of admission/observation: Escalation of care including admission/observation considered Independent Historian Clinical information obtained from an independent historian. History obtained from or confirmed by: Other (plant operations worker at bedside corroborating history) External Record Review External record reviewed: Inpatient record, Office record and Outpatient record Chronic Conditions Patient?s care impacted by: Other (epilepsy, nikita-gastaut syndrome, hypothyroidism, CVA, dysphagia, aspiration pneumonia, mood disorder, Parkinson's disease, HLD, nonverbal at baseline) Discharge Plan Discharge Clinical Impression: Mass of right thigh Patient Disposition: Home, Self-Care Additional Instructions: You were evaluated in the emergency department for a lump on the back of the right thigh. Physical exam did not show any indication of need for incision and drainage at this time. Patient has had this mass present for awhile this may be a lipoma. Patient will be discharged with 7 days of Keflex and doxycycline for bacterial coverage. With referral to surgery for further evaluation. You need to call their office as they will not call you. Additionally, please follow up with the primary care doctor. perform WARM compresses to the area twice daily for 14 days. Please return to the emergency department if you experience fevers over 100.4?, redness, warmth, or drainage from the area, increased pain, chest pain, shortness of breath, nausea, vomiting or any new/worsening/concerning symptoms Prescriptions: New cephalexin 500 mg capsule 500 mg PO BID 7 Days Qty: 14 0RF doxycycline hyclate 100 mg capsule 100 mg PO BID 7 Days Qty: 14 0RF No Action levetiracetam 500 mg tablet 1,000 mg PO TID clonazepam 0.5 mg Tablet 0.5 mg PO BEDTIME Rx Instructions: administer 30 minutes before bedtime clonazepam 0.5 mg Tablet 0.25 mg PO BID@0800,1200 felbamate 400 mg tablet 800 mg PO TID simvastatin 40 mg tablet 40 mg PO BEDTIME levothyroxine 88 mcg tablet 88 mcg PO DAILY@0600 sertraline 50 mg tablet 50 mg PO BEDTIME divalproex [Depakote Sprinkles] 125 mg capsule, delayed rel sprinkle 500 mg PO TID cholecalciferol (vitamin D3) 1,250 mcg (50,000 unit) capsule 1,250 mcg PO WE@0900 Desitin Daily Defense 13 % cream 1 appl topical TID PRN (Reason: Rash) acetaminophen 325 mg Tablet 650 mg PO Q6H PRN (Reason: Fever Or Pain) Rx Instructions: not to exceed 3000mg in 24 hours guaifenesin 100 mg/5 mL Liquid 200 mg PO Q6H PRN (Reason: Cough) magnesium hydroxide [Milk of Magnesia] 400 mg/5 mL suspension 30 ml PO Q OTHER DAY bisacodyl [OneLAX Bisacodyl] 10 mg suppository 10 mg PA DAILY PRN (Reason: Constipation) Rx Instructions: If no BM in 3 days Enema Disposable 19-7 gram/118 mL enema 118 ml PA DAILY PRN (Reason: Constipation) Rx Instructions: on day 4 of no BM polyethylene glycol 3350 17 gram/dose powder 17 g PO DAILY Rx Instructions: hold for loose stools docusate sodium 50 mg/5 mL Liquid 100 mg PO DAILY@0800 aspirin 81 mg Tablet,Chewable 81 mg PO DAILY@0800 Nayzilam 5 mg/spray (0.1 mL) [place],Non-Aerosol 5 mg INTRANASAL Q10M MDD 10mg/24h PRN (Reason: Seizures) bacitracin 500 unit/gram Ointment 1 appl TOPICAL BID PRN (Reason: wounds) lamotrigine 25 mg Tablet 50 mg PO BID Qty: 270 0RF therapeutic multivitamin Tablet 1 tab PO DAILY Refresh P.M. 57.3-42.5 % Ointment 1 appl ophthalmic (eye) BEDTIME Rx Instructions: 1/4 INCH APPLICATION cefuroxime axetil 500 mg tablet 500 mg PO BID Qty: 8 0RF Referrals: [facility] – [place], [place] General [facility] [Provider Group, General Surgery] Referral Note: mass of R posterior thigh ?lipoma vs early abscess Print Language: Telugu
[2025-04-04 14:32] VITALS: BP 108/68; PULSE 74; RESP 18; TEMP 36.2; O2SAT 94
== END 2025-04-04 14:34 | disposition home or self-care (01) ==
PROVIDERS: Emergency Provider Emergency Medicine; PCP Internal Medicine
DX: R22.41 Localized swelling, mass and lump, right lower limb (principal); G20.A1 Parkinson's disease without dyskinesia, without mention of fluctuations; G40.812 Lennox-Gastaut syndrome, not intractable, without status epilepticus; Z86.73 Personal history of transient ischemic attack (TIA), and cerebral infarction without residual deficits; Z79.899 Other long term (current) drug therapy
CPT/HCPCS: 99283